=== PATIENT | female | born 1945 | race Caucasian/White ===

== ENCOUNTER → 2016-07-29 | Outpatient (REF) | payer MEDICARE, MEDICAID ==
[~2016-07-29] MED LIST: /ADVA50050; /ADVA50050 IN; /ADVA50050 INH; /FENT75PA; /FENT75PA TD; /TIOT18INH; /TIOT18INH INH; ADV500INH INH; ALBU17IN INH; CARV3.12 PO; CELE40TA; CELE40TA OR; CHAN1PAK9 PO; CIPR500T89 PO; CITA40TA4 PO; COLA100C PO; COLA100C2 OR; CORE6.25 PO; DESLORATADINE PO; DIPH25CA PO; DOC-Q-LACE PO; FERR325T OR; FERR325T3 PO; FOLI1TAB2 PO; GABA-283 PO; HYDR-3719 PO; HYDR25TA6; HYDR25TA6 OR; IBUP400T OR; INSUH10VL SC; INSULADS SC; INSULANT SC; INSULIN LANTUS; KEFL500C7 PO; LEVA500T PO; LISI40TA; LISI40TA OR; LISI40TAB PO; LOPR50TA OR; LORT5TAB PO; LYRI150C; LYRI150C OR; MERTAZAPINE; MERTAZAPINE PO; METF500T4; METF500T4 OR; METO25TAB PO; MILKSUS OR; MILKSUS PO; MIRT30TA3 PO; MONT10TA2 PO; MORP15TASA PO; NEUR300C PO; NEUR400C OR; NORC10TA2 PO; NOVOINJ4; NOVOINJ4 IJ; NYSTATIN POWDER TOP; OMEP20CA3 PO; OXYC-299 PO; PAIN325T OR; PRED10TA2 PO; PRED20TA PO; PRIL40CA; PRIL40CA OR; PROV90AE; REGL5TAB2 PO; REME30TA OR; SIMV20TA2 PO; SING10TA31 PO; TESS100C PO; TIOT18INH INH; TRAZ100T; TRAZ100T OR; TRAZ100T4 PO; TYLE500T53 OR; VARE05TA PO; VENTAER; VENTAER IN; VENTOLIN NEB; VICO10TA11 PO; VICO5TAB; VICO5TAB OR; ZOCO40TA PO; neurontin; novolog SUBQ; simvastatin OR
== END ==
LOC: M SFHCADAM 16:15
PROVIDERS: ATTEND Family Medicine
DX: E11.9 Type 2 diabetes mellitus without complications (principal); F17.211 Nicotine dependence, cigarettes, in remission; Z53.8 Procedure and treatment not carried out for other reasons

== ENCOUNTER → 2016-07-31 | Outpatient (CLI) | payer MEDICARE, MEDICAID ==
[2016-07-31 11:58] LABS: MEAN CORPUSCULAR HEMOGLOBIN 31.5 pg (27.0-33.0); MEAN CORPUSCULAR HGB CONC 35.6 g/dl (32.0-36.5); MEAN CORPUSCULAR VOLUME 88.4 fl (80.0-96.0); RED CELL DISTRIBUTION WIDTH 13.3 % (11.5-14.5); WHITE BLOOD COUNT 4.4 K/mm3 (4.0-10.0)
[2016-07-31 12:28] LABS: ALBUMIN 3.4 GM/DL (3.2-5.2); ALBUMIN/GLOBULIN RATIO 0.87 (1.00-1.93); BILIRUBIN,TOTAL 0.6 MG/DL (0.2-1.0); CALCIUM LEVEL 8.3 MG/DL (8.8-10.2); CREATININE FOR GFR 1.01 MG/DL (0.55-1.02); FREE T4 1.31 NG/DL (0.76-1.46); GLOMERULAR FILTRATION RATE 57.7 (>39); POTASSIUM SERUM 4.6 MEQ/L (3.5-5.1); TOTAL PROTEIN 7.3 GM/DL (6.4-8.2)
== END ==
LOC: M LAB 11:32
PROVIDERS: ATTEND Family Medicine
DX: E11.9 Type 2 diabetes mellitus without complications (principal); F17.211 Nicotine dependence, cigarettes, in remission

== ENCOUNTER → 2017-04-15 | Outpatient (CLI) | payer MEDICARE, MEDICAID ==
[~2017-04-15] MED LIST changes: +CIPR-249 PO; -CIPR500T89 PO; -COLA100C PO; +COLA100C5 PO; -FOLI1TAB2 PO; +FOLI1TAB4 PO; +KEFL500C17 PO; -KEFL500C7 PO; -NORC10TA2 PO; +NORC10TA21 PO; +OXYC-141 PO; -OXYC-299 PO; +TRAZ-136 PO; -TRAZ100T4 PO
--- NOTE | 2017-04-15 09:49 | REP ---
Abdominal right upper quadrant ultrasound: Comparison studies are the CT studies of the abdomen pelvis dated 04/08/2016 and 02/27/2015. The gallbladder is surgically absent. There is no intrahepatic or extrahepatic biliary duct dilatation. The common duct measures 3.8 mm in diameter. The hepatic parenchyma is homogeneous. There are no hepatic masses. The visualized portion of the pancreatic head is unremarkable. The pancreatic body and tail are obscured by bowel gas. The right kidney is normal size measuring 11.6 cm craniocaudad length. There is renal cortical thinning. There is a 3.4 cm cyst laterally at the mid pole. There is calcified atheroma in renal vessels. There is no renal collecting system calculus, hydronephrosis or mass. There is no free fluid in the abdominal right upper quadrant. Impression: The gallbladder surgically absent. There is no hepatic mass. There is a 3.4 cm right renal cyst. There is no right upper quadrant ascites. Signed by Ramsey Cheng MD 04/15/2017 09:41 A
== END ==
LOC: M RAD 08:37
PROVIDERS: ATTEND Internal Medicine Infectious Disease
DX: B18.2 Chronic viral hepatitis C (principal); N28.1 Cyst of kidney, acquired

== ENCOUNTER → 2017-05-17 | Outpatient (CLI) | payer MEDICAID, MEDICARE ==
--- NOTE | 2017-05-17 09:28 | REP ---
CT abdomen pelvis without IV and oral contrast: Comparison is 04/08/2016. The patient is a history of colon resection and colostomy, hysterectomy, bilateral mastectomies and left hip arthroplasty. There are surgical clips in the rectal stump and the mid transverse colon. I do not identify the descending colon. Findings suggest a left hemicolectomy. There is a right lower quadrant stoma. There is a large peristomal hernia containing the ascending colon. This is unchanged. There is no wall thickening of the bowel loops within the hernia sac to suggest strangulation. The hernia sac measures 11 cm transverse diameter. This previously measured 11 cm. There is no evidence of bowel obstruction. The unenhanced hepatic parenchyma is homogeneous. There are surgical clips in the gallbladder fossa. Pancreas and spleen are normal size. There is a splenic calcification. The adrenals are unremarkable. There is a right renal cyst approximately 3 cm in diameter. This is unchanged. There are no renal calculi are hydronephrosis. There is no bowel distension or obstruction. There is no ascites. Pelvis: Beam-hardening artifact from the left hip arthroplasty obscures visualization. A large mass is identified. No adenopathy. The bladder is mostly obscured. Impression: There are findings compatible left hemicolectomy. There is a right lower quadrant stoma with a parastomal hernia containing the ascending colon, unchanged from the prior study. There is no bowel distension or obstruction. There is no bowel wall thickening to suggest strangulation. There is no ascites or adenopathy. Signed by Ramsey Cheng MD 05/17/2017 09:19 A
== END ==
LOC: M RAD 08:41
PROVIDERS: ATTEND Physician Assistant
DX: R10.32 Left lower quadrant pain (principal)

== ENCOUNTER → 2017-05-24 | Outpatient (REF) | payer MEDICARE, MEDICAID ==
[2017-05-24 14:06] LABS: BASO % 0.5 % (0.0-1.0); EOS # 0.1 10^3/uL (0.0-0.50); EOS % 2.9 % (0.0-3.0); LYMPH # 2.3 10^3/uL (1.5-4.5); LYMPH % 58.7 % (24.0-44.0); MEAN CORPUSCULAR HEMOGLOBIN 29.7 pg (27.0-33.0); MEAN CORPUSCULAR HGB CONC 33.8 g/dl (32.0-36.5); MEAN CORPUSCULAR VOLUME 87.9 fl (80.0-96.0); MONO # 0.6 10^3/uL (0.0-0.8); MONO % 15.7 % (0.0-5.0); NEUTROPHILS % 22.2 % (36.0-66.0); PLATELET COUNT, AUTOMATED 125 10^3/uL (150-450); RED CELL DISTRIBUTION WIDTH 12.2 % (11.5-14.5); WHITE BLOOD COUNT 3.8 10^3/uL (4.0-10.0)
[2017-05-24 14:12] LABS: ALBUMIN 3.3 GM/DL (3.2-5.2); BILIRUBIN,DIRECT 0.2 MG/DL (0.0-0.2); BILIRUBIN,TOTAL 0.4 MG/DL (0.2-1.0); TOTAL PROTEIN 6.6 GM/DL (6.4-8.2)
[2017-05-24 14:43] LABS: NEUTROPHILS # 0.9 10^3/uL (1.8-7.7)
[2017-05-24 14:44] LABS: POSITIVE DIFF POS FLAG
[2017-05-27 10:16] LABS: HEPATITIS C QUANTITATION HCV Not Detected IU/mL (.)
== END ==
LOC: M SFHCPLAZ 10:57
PROVIDERS: ATTEND Internal Medicine Infectious Disease
DX: B18.2 Chronic viral hepatitis C (principal); Z23 Encounter for immunization
CPT/HCPCS: 36415; 80076; 85025; 87522; 90471; 90746; G0463

== ENCOUNTER 2017-07-01 14:02 | Emergency (ER) | payer MEDICARE, MEDICAID ==
[~2017-07-01] VITALS: Ht 177.8 cm; Wt 79.5 kg
[2017-07-01] MEDS ORDERED: BACL10TA2 PO (14:17)
[2017-07-01] MEDS ORDERED: OXYC15TA66 PO (14:17)
[2017-07-01] MEDS ORDERED: METH1TAB2 PO (14:17)
[2017-07-01] MEDS ORDERED: EPCL1TAB PO (14:17)
[2017-07-01] MEDS ORDERED: LISI-542 PO (14:17)
[2017-07-01] MEDS ORDERED: MECLIZINE 25 MG TABLET PO ONE (15:30)
[2017-07-01] MEDS ORDERED: ONDANSETRON 4MG/2ML VIAL (J2405) IV ONE (15:30)
[2017-07-01] MEDS ORDERED: MORPHINE 4 MG/ML 1ML SYRINGE IV ONE (15:30)
--- NOTE | 2017-07-01 16:22 | REP ---
CT brain without contrast: History: Dizziness. Comparison CT study: May 11, 2010. CT findings: Preliminary digital agriculture intern radiograph is unremarkable. No bony destructive lesion is seen. There is no CT evidence of significant paranasal sinus disease. A tiny quantity of fluid is seen in the left sphenoid sinus. There is vascular calcification in the distal vertebral arteries. There is diffuse moderate atrophy. Dilated perivascular spaces are seen in the inferior aspect of the basal ganglia bilaterally unchanged from the comparison study 2009. There is an old lacunar infarct in the left inferior basal ganglia as well also unchanged from the 2010 study. No acute infarct or hemorrhage is seen. No mass, extra-axial fluid collection or midline shift is seen. Impression: Vascular calcification and diffuse moderate atrophy. Old lacunar infarct left inferior basal ganglia unchanged from 2010. No acute intracranial lesion. Signed by Thomas Beauchamp MD 07/01/2017 05:12 P
[2017-07-01 16:30] LABS: MEAN CORPUSCULAR HEMOGLOBIN 30.9 pg (27.0-33.0); MEAN CORPUSCULAR VOLUME 85.7 fl (80.0-96.0); PLATELET COUNT, AUTOMATED 147 10^3/uL (150-450); RED CELL DISTRIBUTION WIDTH 12.5 % (11.5-14.5); WHITE BLOOD COUNT 5.3 10^3/uL (4.0-10.0)
--- NOTE | 2017-07-01 16:45 | REP ---
Lumbar spine series: Five views. History: Trauma. Findings: Lumbar vertebral body heights are preserved. Alignment is normal. No fracture collapse is seen. There is degenerative disc disease at L3-4 and L2-3, fairly advanced. There is a mild dextroconvex curvature on the AP view. Pedicles and posterior elements are intact. Psoas margins are symmetric. Surgical clips are noted in the pelvis and in the upper abdomen bilaterally. Impression: No fracture seen. Degenerative spondylosis changes. Signed by Thomas Beauchamp MD 07/01/2017 05:12 P
--- NOTE | 2017-07-01 16:48 | REP ---
Sacrum and coccyx: Four views: History: Trauma. Findings: AP, lateral and tube angled views of the sacrum and coccyx show no evidence of sacral or coccygeal fracture. There are sutures and clips in the central pelvis. A left hip replacement is seen. There is some contrast density in the right presacral soft tissues implying previous extravasated contrast. This is unchanged from a prior study November 20, 2013. This is not an acute finding. Impression: No sacral fracture or bony destructive lesion. Previously extravasated contrast in the presacral soft tissues. Unchanged from November 2013. Signed by Thomas Beauchamp MD 07/01/2017 05:13 P
[2017-07-01 16:51] LABS: ANION GAP 6 MEQ/L (8-16); BLOOD UREA NITROGEN 27 MG/DL (7-18); CALCIUM LEVEL 8.7 MG/DL (8.8-10.2); CARBON DIOXIDE LEVEL 29 MEQ/L (21-32); CHLORIDE LEVEL 100 MEQ/L (98-107); CREATININE FOR GFR 1.05 MG/DL (0.55-1.02); GLUCOSE, FASTING 191 MG/DL (83-110); POTASSIUM SERUM 4.7 MEQ/L (3.5-5.1); SODIUM LEVEL 135 MEQ/L (136-145)
[2017-07-01] MEDS ORDERED: MECL-68 PO (17:57)
[2017-07-01 18:17] VITALS: BP 119/58
--- NOTE | 2017-07-02 16:44 | ECGEPIP ---
Stationary ECG Study [facility] - ED Test Date: 2017-07-01 Pat Name: MATT REYNOSO Department: Room: - Gender: F Credit Collections Clerk: KEVIN : 1945 Requested By: Fito Aguirre Order Number: [id number] Reading MD: Sandra Ku Measurements Intervals [place] Rate: 85 P: 71 AL: 194 QRS: 72 QRSD: 85 T: 79 QT: 354 QTc: 421 Interpretive Statements SINUS RHYTHM DELAYED R PROGRESSION SIMILAR 04/08/16 Electronically Signed On 07-02-2017 16:44:36 EST by Sandra Ku
== END 2017-07-01 18:36 | disposition home or self-care (01) ==
LOC: EDBD 14:02 → M ED 14:02
DX: S60.222A Contusion of left hand, initial encounter (principal); S50.11XA Contusion of right forearm, initial encounter; S30.0XXA Contusion of lower back and pelvis, initial encounter; W19.XXXA Unspecified fall, initial encounter; Y92.018 Other place in single-family (private) house as the place of occurrence of the external cause; Y93.89 Activity, other specified; Y99.8 Other external cause status; J44.9 Chronic obstructive pulmonary disease, unspecified; I10 Essential (primary) hypertension; G89.29 Other chronic pain; F33.9 Major depressive disorder, recurrent, unspecified; K21.9 Gastro-esophageal reflux disease without esophagitis; I25.9 Chronic ischemic heart disease, unspecified; B19.20 Unspecified viral hepatitis C without hepatic coma; Z79.899 Other long term (current) drug therapy; Z79.51 Long term (current) use of inhaled steroids; Z88.0 Allergy status to penicillin; Z88.1 Allergy status to other antibiotic agents; Z88.8 Allergy status to other drugs, medicaments and biological substances; Z91.041 Radiographic dye allergy status; Z87.891 Personal history of nicotine dependence
CPT/HCPCS: 70450; 72110; 72220; 80048; 82550; 82553; 84484; 85027; 93005; 93041; 94760; 96374; 96375; 99285; J2405

== ENCOUNTER 2017-08-03 08:16 | Observation (INO) | payer MEDICARE, MEDICAID ==
[2017-08-03] MEDS: MORPHINE 4 MG/ML 1ML VIAL (J2270) IV ×9 (09:35→15:19)
[2017-08-03] MEDS: ONDANSETRON 4MG/2ML VIAL (J2405) IV ×4 (09:35)
[2017-08-03] MEDS: MORPHINE 4 MG/ML 1ML SYRINGE IV ×3 (09:35→15:19)
[2017-08-03] MEDS: NS 1,000 ML IV ×12 (09:35→18:10)
[2017-08-03 10:10] LABS: BASO % 0.4 % (0.0-1.0); EOS # 0.1 10^3/uL (0.0-0.50); EOS % 3.6 % (0.0-3.0); HEMATOCRIT 27.5 % (36.0-47.0); HEMOGLOBIN 9.4 g/dl (12.0-16.0); IMMATURE GRANULOCYTE % 0.4 % (0-0); LYMPH # 0.8 10^3/uL (1.5-4.5); LYMPH % 31.5 % (24.0-44.0); MEAN CORPUSCULAR HEMOGLOBIN 30.6 pg (27.0-33.0); MEAN CORPUSCULAR HGB CONC 34.2 g/dl (32.0-36.5); MEAN CORPUSCULAR VOLUME 89.6 fl (80.0-96.0); MONO # 0.5 10^3/uL (0.0-0.8); MONO % 21.5 % (0.0-5.0); NEUTROPHILS # 1.1 10^3/uL (1.8-7.7); NEUTROPHILS % 42.6 % (36.0-66.0); RED BLOOD COUNT 3.07 10^6/uL (4.00-5.40); RED CELL DISTRIBUTION WIDTH 13.1 % (11.5-14.5); WHITE BLOOD COUNT 2.5 10^3/uL (4.0-10.0)
[2017-08-03 10:27] LABS: POS COUNT POS FLAG
[2017-08-03 10:28] LABS: PLATELET COUNT, AUTOMATED 156 10^3/uL (150-450)
[2017-08-03 10:33] LABS: INR 1.04; PROTHROMBIN TIME 13.7 SECONDS (12.4-14.5)
[2017-08-03 10:37] LABS: ALBUMIN 2.7 GM/DL (3.2-5.2); ALBUMIN/GLOBULIN RATIO 0.84 (1.00-1.93); ALKALINE PHOSPHATASE 80 U/L (45-117); ALT/SGPT 13 U/L (12-78); ANION GAP 10 MEQ/L (8-16); AST/SGOT 11 U/L (7-37); BILIRUBIN,DIRECT 0.2 MG/DL (0.0-0.2); BILIRUBIN,TOTAL 0.5 MG/DL (0.2-1.0); BLOOD UREA NITROGEN 8 MG/DL (7-18); CARBON DIOXIDE LEVEL 27 MEQ/L (21-32); CHLORIDE LEVEL 103 MEQ/L (98-107); CPK CREATINE PHOSPHOKINASE 39 U/L (26-192); CREATININE FOR GFR 0.87 MG/DL (0.55-1.02); GLOMERULAR FILTRATION RATE > 60.0 (>39); GLUCOSE, FASTING 231 MG/DL (70-100); LIPASE 63 U/L (73-393); POTASSIUM SERUM 4.3 MEQ/L (3.5-5.1); SODIUM LEVEL 140 MEQ/L (136-145); TOTAL PROTEIN 5.9 GM/DL (6.4-8.2); TROPONIN I < 0.02 NG/ML (< 0.10)
[2017-08-03 10:38] LABS: MB/CK RELATIVE INDEX 2.56 (< OR =4)
[2017-08-03 10:59] LABS: KETONE, URINE AUTO RFX 1+ mg/dL (NEGATIVE); LEUKOCYTE ESTERASE UR AUTO RFX NEGATIVE (NEGATIVE); MUCUS, URINE RFX SMALL (NEGATIVE); NITRITE, URINE AUTO RFX NEGATIVE (NEGATIVE); RBC, URINE AUTO RFX 0 /HPF (0-3); SPECIFIC GRAVITY UR AUTO RFX 1.006 (1.002-1.035); SQUAM EPITHELIAL CELL UR AURFX 1 /HPF (0-6); WBC, URINE AUTO RFX 4 /HPF (0-3)
[2017-08-03] MEDS: MECLIZINE 25 MG TABLET PO ×4 (13:01)
[2017-08-03] MEDS ORDERED: ONDANSETRON 4MG/2ML VIAL (J2405) IV ×4 (17:15)
[2017-08-03] MEDS ORDERED: PROCHLORPERAZINE 10 MG/2 ML VIAL (J0780) IV ×4 (17:15)
[2017-08-03] MEDS ORDERED: BACLOFEN 10 MG TAB PO ×4 (17:15)
[2017-08-03] MEDS ORDERED: PERCOCET 5MG/325MG TAB PO ×4 (17:15)
[2017-08-03] MEDS ORDERED: ACETAMINOPHEN TAB 650MG DOSE (2X325MG) PO ×4 (17:30)
[2017-08-03] MEDS ORDERED: GLUCOSE 4 GM CHEW TABLET PO ×4 (17:30)
[2017-08-03] MEDS ORDERED: IPRATROPIUM 0.5MG/ALBUTEROL 2.5MG INH SOL UD 3ML (DUONEB)(J7620) NEB ×4 (17:30)
[2017-08-03] MEDS ORDERED: DEXTROSE 50% 50 ML SYRINGE IV ×4 (17:30)
[2017-08-03] MEDS ORDERED: GLUCAGON FOR INJ 1 MG VIAL (J1610) SC ×4 (17:30)
[2017-08-03 18:22] LABS: BEDSIDE GLUCOSE 119 MG/DL (83-110)
[2017-08-03] MEDS ORDERED: MORPHINE 4 MG/ML 1ML SYRINGE IV (18:45)
[2017-08-03] MEDS ORDERED: MORPHINE 4 MG/ML 1ML VIAL (J2270) IV ×3 (18:45)
[2017-08-03] MEDS: HumaLOG INSULIN (NovoLOG) PER UNIT SC ×8 (18:48→21:00)
[2017-08-03] MEDS: PERCOCET 5MG/325MG TAB PO ×4 (19:30)
[2017-08-03] MEDS: MIRTAZAPINE 15 MG TAB PO ×4 (21:00)
[2017-08-03] MEDS: VARENICLINE 1 MG TABLET PO ×4 (21:00)
[2017-08-03] MEDS: GABAPENTIN 400 MG CAP PO ×4 (21:00)
[2017-08-03] MEDS: DOCUSATE SODIUM 100 MG CAP PO ×4 (21:00)
[2017-08-03] MEDS: MONTELUKAST 10 MG TAB PO ×4 (21:00)
[2017-08-03] MEDS ORDERED: ENTER DRUG NAME HERE (PATIENT'S OWN MED) PO ×4 (21:00)
[2017-08-03] MEDS: traZODone 100 MG TAB PO ×4 (21:00)
[2017-08-03] MEDS: CARVedilol 3.125 MG TAB PO ×4 (21:00)
[2017-08-03] MEDS: FOLIC ACID 1 MG TAB PO ×4 (21:00)
[2017-08-03] MEDS: SIMVASTATIN 20 MG TAB PO ×4 (21:00)
[2017-08-03] MEDS: oxyCODONE 20 MG CR TAB PO ×4 (21:00)
[2017-08-03] MEDS: HEPARIN SOD (PORCINE) 5000 UNITS/ML VIAL SC ×4 (21:19)
[2017-08-03 21:24] LABS: BEDSIDE GLUCOSE 150 MG/DL (83-110)
[2017-08-03] MEDS: ADVAIR HFA 230/21MCG INHALER INH ×4 (23:39)
[2017-08-04] MEDS: PERCOCET 5MG/325MG TAB PO ×8 (04:50→15:27)
[2017-08-04] MEDS: HEPARIN SOD (PORCINE) 5000 UNITS/ML VIAL SC ×12 (06:00→22:01)
[2017-08-04 06:59] LABS: BEDSIDE GLUCOSE 199 MG/DL (83-110)
[2017-08-04 07:04] LABS: BASO % 0.4 % (0.0-1.0); EOS # 0.2 10^3/uL (0.0-0.50); EOS % 8.6 % (0.0-3.0); HEMATOCRIT 25.1 % (36.0-47.0); HEMOGLOBIN 8.3 g/dl (12.0-16.0); LYMPH # 1.1 10^3/uL (1.5-4.5); LYMPH % 46.1 % (24.0-44.0); MEAN CORPUSCULAR HEMOGLOBIN 29.6 pg (27.0-33.0); MEAN CORPUSCULAR HGB CONC 33.1 g/dl (32.0-36.5); MEAN CORPUSCULAR VOLUME 89.6 fl (80.0-96.0); MONO # 0.6 10^3/uL (0.0-0.8); MONO % 25.9 % (0.0-5.0); PLATELET COUNT, AUTOMATED 142 10^3/uL (150-450); RED CELL DISTRIBUTION WIDTH 13.1 % (11.5-14.5); WHITE BLOOD COUNT 2.3 10^3/uL (4.0-10.0)
[2017-08-04 07:15] LABS: ANION GAP 6 MEQ/L (8-16); BLOOD UREA NITROGEN 4 MG/DL (7-18); CALCIUM LEVEL 7.8 MG/DL (8.8-10.2); CARBON DIOXIDE LEVEL 30 MEQ/L (21-32); CHLORIDE LEVEL 105 MEQ/L (98-107); CREATININE FOR GFR 0.79 MG/DL (0.55-1.02); GLOMERULAR FILTRATION RATE > 60.0 (>39); GLUCOSE, FASTING 190 MG/DL (70-100); POTASSIUM SERUM 3.2 MEQ/L (3.5-5.1); SODIUM LEVEL 141 MEQ/L (136-145)
[2017-08-04 07:20] LABS: ESTIMATED AVERAGE GLUCOSE 148 MG/DL (60-110); HEMOGLOBIN A1c 6.8 %
[2017-08-04] MEDS: HumaLOG INSULIN (NovoLOG) PER UNIT SC ×16 (07:26→21:00)
[2017-08-04 07:28] LABS: NEUTROPHILS # 0.4 10^3/uL (1.8-7.7); POSITIVE DIFF POS FLAG
[2017-08-04] MEDS: CitaloPRAM (CeleXA) 20 MG TAB PO ×4 (08:34)
[2017-08-04] MEDS: DOCUSATE SODIUM 100 MG CAP PO ×8 (08:34→21:57)
[2017-08-04] MEDS: VARENICLINE 1 MG TABLET PO ×8 (08:34→22:05)
[2017-08-04] MEDS: FOLIC ACID 1 MG TAB PO ×8 (08:36→21:55)
[2017-08-04] MEDS: CARVedilol 3.125 MG TAB PO ×8 (08:36→21:56)
[2017-08-04] MEDS: TAMSULOSIN 0.4 MG CAP PO ×4 (08:36)
[2017-08-04] MEDS: oxyCODONE 10 MG CR TAB PO ×8 (08:37→21:57)
[2017-08-04] MEDS: OMEPRAZOLE 20 MG CAP PO ×4 (08:38)
[2017-08-04] MEDS: LISINOPRIL 5 MG TAB PO ×4 (08:38)
[2017-08-04] MEDS: GABAPENTIN 400 MG CAP PO ×12 (09:00→21:57)
[2017-08-04] MEDS: NS 1,000 ML IV ×4 (09:55)
[2017-08-04] MEDS: TIOTROPIUM INHALER/CAPSULE (SPIRIVA) INH ×4 (11:11)
[2017-08-04] MEDS: ADVAIR HFA 230/21MCG INHALER INH ×4 (11:12)
[2017-08-04 11:55] LABS: BEDSIDE GLUCOSE 194 MG/DL (83-110)
[2017-08-04] MEDS: POTASSIUM CHLORIDE 10 MEQ SR TABLET PO ×8 (15:26→21:55)
[2017-08-04 18:20] LABS: BEDSIDE GLUCOSE 160 MG/DL (83-110)
[2017-08-04 20:41] LABS: BEDSIDE GLUCOSE 150 MG/DL (83-110)
[2017-08-04] MEDS: MONTELUKAST 10 MG TAB PO ×4 (21:55)
[2017-08-04] MEDS: MIRTAZAPINE 15 MG TAB PO ×4 (21:55)
[2017-08-04] MEDS: traZODone 100 MG TAB PO ×4 (21:56)
[2017-08-04] MEDS: SIMVASTATIN 20 MG TAB PO ×4 (21:58)
[2017-08-05] MEDS: ADVAIR HFA 230/21MCG INHALER INH ×8 (00:08→08:47)
[2017-08-05] MEDS: HEPARIN SOD (PORCINE) 5000 UNITS/ML VIAL SC ×4 (05:56)
[2017-08-05 06:55] LABS: EOS # 0.2 10^3/uL (0.0-0.50); EOS % 8.1 % (0.0-3.0); HEMATOCRIT 24.5 % (36.0-47.0); HEMOGLOBIN 8.1 g/dl (12.0-16.0); MEAN CORPUSCULAR HEMOGLOBIN 30.5 pg (27.0-33.0); MEAN CORPUSCULAR HGB CONC 33.1 g/dl (32.0-36.5); MEAN CORPUSCULAR VOLUME 92.1 fl (80.0-96.0); MONO # 0.5 10^3/uL (0.0-0.8); MONO % 25.8 % (0.0-5.0); NEUTROPHILS % 16.1 % (36.0-66.0); PLATELET COUNT, AUTOMATED 141 10^3/uL (150-450); RED BLOOD COUNT 2.66 10^6/uL (4.00-5.40); RED CELL DISTRIBUTION WIDTH 13.2 % (11.5-14.5)
[2017-08-05 06:56] LABS: NEUTROPHILS # 0.3 10^3/uL (1.8-7.7); POS COUNT POS FLAG; POSITIVE DIFF POS FLAG
[2017-08-05 06:56] LABS: BEDSIDE GLUCOSE 167 MG/DL (83-110)
[2017-08-05 07:13] LABS: ANION GAP 5 MEQ/L (8-16); BLOOD UREA NITROGEN 5 MG/DL (7-18); CALCIUM LEVEL 7.7 MG/DL (8.8-10.2); CARBON DIOXIDE LEVEL 28 MEQ/L (21-32); CHLORIDE LEVEL 108 MEQ/L (98-107); CREATININE FOR GFR 0.89 MG/DL (0.55-1.02); GLOMERULAR FILTRATION RATE > 60.0 (>39); GLUCOSE, FASTING 147 MG/DL (70-100); MAGNESIUM LEVEL 1.4 MG/DL (1.8-2.4); POTASSIUM SERUM 4.4 MEQ/L (3.5-5.1); SODIUM LEVEL 141 MEQ/L (136-145)
[2017-08-05] MEDS: GABAPENTIN 400 MG CAP PO ×4 (08:19)
[2017-08-05] MEDS: OMEPRAZOLE 20 MG CAP PO ×4 (08:19)
[2017-08-05] MEDS: TAMSULOSIN 0.4 MG CAP PO ×4 (08:19)
[2017-08-05] MEDS: DOCUSATE SODIUM 100 MG CAP PO ×4 (08:19)
[2017-08-05] MEDS: CitaloPRAM (CeleXA) 20 MG TAB PO ×4 (08:20)
[2017-08-05] MEDS: LISINOPRIL 5 MG TAB PO ×4 (08:20)
[2017-08-05] MEDS: POTASSIUM CHLORIDE 10 MEQ SR TABLET PO ×4 (08:21)
[2017-08-05] MEDS: CARVedilol 3.125 MG TAB PO ×4 (08:23)
[2017-08-05] MEDS: oxyCODONE 10 MG CR TAB PO ×4 (08:24)
[2017-08-05] MEDS: FOLIC ACID 1 MG TAB PO ×4 (08:25)
[2017-08-05] MEDS: HumaLOG INSULIN (NovoLOG) PER UNIT SC ×8 (08:25→12:30)
[2017-08-05] MEDS: VARENICLINE 1 MG TABLET PO ×4 (08:32)
[2017-08-05] MEDS: TIOTROPIUM INHALER/CAPSULE (SPIRIVA) INH ×4 (08:47)
[2017-08-05 12:15] LABS: BEDSIDE GLUCOSE 229 MG/DL (83-110)
== END 2017-08-05 13:00 | disposition home or self-care (01) ==
LOC: M MSPAV 08-04 11:04 → M ED 08:16 → M ED INP 15:01
DX: T81.31XA Disruption of external operation (surgical) wound, not elsewhere classified, initial encounter (principal); Y83.8 Other surgical procedures as the cause of abnormal reaction of the patient, or of later complication, without mention of misadventure at the time of the procedure; E87.6 Hypokalemia; R53.81 Other malaise; R53.83 Other fatigue; D64.9 Anemia, unspecified; D72.819 Decreased white blood cell count, unspecified; I65.22 Occlusion and stenosis of left carotid artery; R11.2 Nausea with vomiting, unspecified; R16.1 Splenomegaly, not elsewhere classified; M47.816 Spondylosis without myelopathy or radiculopathy, lumbar region; M16.0 Bilateral primary osteoarthritis of hip; G89.29 Other chronic pain; I50.30 Unspecified diastolic (congestive) heart failure; E11.43 Type 2 diabetes mellitus with diabetic autonomic (poly)neuropathy; I11.0 Hypertensive heart disease with heart failure; K63.2 Fistula of intestine; N82.8 Other female genital tract fistulae; Z87.19 Personal history of other diseases of the digestive system; B19.20 Unspecified viral hepatitis C without hepatic coma; J44.9 Chronic obstructive pulmonary disease, unspecified; F41.9 Anxiety disorder, unspecified; F32.9 Major depressive disorder, single episode, unspecified; E78.5 Hyperlipidemia, unspecified; M81.0 Age-related osteoporosis without current pathological fracture; M19.072 Primary osteoarthritis, left ankle and foot; M19.071 Primary osteoarthritis, right ankle and foot; N18.9 Chronic kidney disease, unspecified; K76.0 Fatty (change of) liver, not elsewhere classified; Z87.440 Personal history of urinary (tract) infections; Z86.19 Personal history of other infectious and parasitic diseases; Z86.14 Personal history of Methicillin resistant Staphylococcus aureus infection; Z93.3 Colostomy status; N82.3 Fistula of vagina to large intestine; Z87.891 Personal history of nicotine dependence; Z91.041 Radiographic dye allergy status; Z88.0 Allergy status to penicillin; Z88.8 Allergy status to other drugs, medicaments and biological substances; Z88.6 Allergy status to analgesic agent; Z88.5 Allergy status to narcotic agent; Z79.899 Other long term (current) drug therapy; Z79.891 Long term (current) use of opiate analgesic; Z79.2 Long term (current) use of antibiotics; Z79.51 Long term (current) use of inhaled steroids
CPT/HCPCS: 96372

== ENCOUNTER → 2017-08-27 | Outpatient (REF) | payer MEDICARE ==
[2017-08-27 13:38] LABS: BACTERIA, URINE SMALL AMOUNT; RBC, URINE 0-1 /hpf (0-3); SQUAMOUS EPITHELIAL CELL URINE MOD AMOUNT /hpf (SMALL AMT)
[2017-08-27 13:39] LABS: AMORPHOUS SEDIMENT, URINE SMALL AMOUNT (NEGATIVE); MICROSCOPIC EXAM PERFORMED
== END ==
LOC: M SMT 13:01
DX: J44.9 Chronic obstructive pulmonary disease, unspecified (principal); N30.00 Acute cystitis without hematuria; R30.0 Dysuria; R33.9 Retention of urine, unspecified
CPT/HCPCS: 81015

== ENCOUNTER 2017-09-03 16:59 | Emergency (ER) | payer MEDICARE, MEDICAID | END 2017-09-03 18:36 | disposition home or self-care (01) | LOC: M ED 16:59 | DX: R33.9 Retention of urine, unspecified (principal); E11.9 Type 2 diabetes mellitus without complications; I10 Essential (primary) hypertension; J45.909 Unspecified asthma, uncomplicated; B19.20 Unspecified viral hepatitis C without hepatic coma; K21.9 Gastro-esophageal reflux disease without esophagitis; E78.9 Disorder of lipoprotein metabolism, unspecified; Z79.899 Other long term (current) drug therapy; Z79.51 Long term (current) use of inhaled steroids; Z91.041 Radiographic dye allergy status; Z88.8 Allergy status to other drugs, medicaments and biological substances; Z88.5 Allergy status to narcotic agent; Z88.0 Allergy status to penicillin; Z88.1 Allergy status to other antibiotic agents; Z98.890 Other specified postprocedural states; Z85.841 Personal history of malignant neoplasm of brain; Z87.440 Personal history of urinary (tract) infections | CPT/HCPCS: 51700; 51702 ==

== ENCOUNTER 2017-09-13 17:50 | Emergency (ER) | payer MEDICARE, MEDICAID ==
[2017-09-13 19:02] LABS: APPEARANCE, URINE HAZY (CLEAR); BACTERIA, URINE AUTO 1+ (NEGATIVE); BILIRUBIN, URINE AUTO NEGATIVE (NEGATIVE); BLOOD, URINE BLOOD 3+ (NEGATIVE); COLOR, URINE YELLOW (YELLOW); GLUCOSE, URINE (UA) AUTO NEGATIVE (NEGATIVE); KETONE, URINE AUTO NEGATIVE (NEGATIVE); LEUKOCYTE ESTERASE, URINE AUTO TRACE (NEGATIVE); NITRITE, URINE AUTO NEGATIVE (NEGATIVE); PROTEIN, URINE AUTO NEGATIVE (NEGATIVE); RBC, URINE AUTO 18 /HPF (0-3); SPECIFIC GRAVITY URINE AUTO 1.005 (1.002-1.035); SQUAMOUS EPITHELIAL CELL UR AU 0 /HPF (0-6); UROBILINOGEN, URINE AUTO 0.2 mg/dL (0.0-2.0); WBC, URINE AUTO 5 /HPF (0-3)
[2017-09-13] MEDS: BACTRIM 160MG/800MG DS TAB PO ×3 (20:06)
[2017-09-13] MEDS: NITROFURANTOIN (MACROBID) 100 MG CAP PO ×3 (20:06)
== END 2017-09-13 20:11 | disposition home or self-care (01) ==
LOC: M ED 17:50
DX: R33.9 Retention of urine, unspecified (principal); N30.00 Acute cystitis without hematuria; T83.091A Other mechanical complication of indwelling urethral catheter, initial encounter; Y92.9 Unspecified place or not applicable; Y93.9 Activity, unspecified; R51 Headache; I10 Essential (primary) hypertension; K21.9 Gastro-esophageal reflux disease without esophagitis; E11.9 Type 2 diabetes mellitus without complications; B18.2 Chronic viral hepatitis C; Z90.49 Acquired absence of other specified parts of digestive tract; Z79.899 Other long term (current) drug therapy; Z88.1 Allergy status to other antibiotic agents; Z88.6 Allergy status to analgesic agent; Z88.5 Allergy status to narcotic agent; Z88.0 Allergy status to penicillin; Z88.2 Allergy status to sulfonamides; Z88.8 Allergy status to other drugs, medicaments and biological substances; Z91.041 Radiographic dye allergy status
CPT/HCPCS: 81001

== ENCOUNTER → 2017-10-04 | Outpatient (REF) | payer MEDICARE, MEDICAID ==
[2017-10-04 15:53] LABS: BASO % 0.3 % (0.0-1.0); EOS # 0.1 10^3/uL (0.0-0.50); EOS % 3.9 % (0.0-3.0); HEMATOCRIT 34.7 % (36.0-47.0); HEMOGLOBIN 11.5 g/dl (12.0-16.0); IMMATURE GRANULOCYTE % 0.3 % (0-3.0); LYMPH # 1.7 10^3/uL (1.5-4.5); LYMPH % 55.8 % (24.0-44.0); MEAN CORPUSCULAR HEMOGLOBIN 28.3 pg (27.0-33.0); MEAN CORPUSCULAR HGB CONC 33.1 g/dl (32.0-36.5); MEAN CORPUSCULAR VOLUME 85.3 fl (80.0-96.0); MONO # 0.5 10^3/uL (0.0-0.8); MONO % 17.2 % (0.0-5.0); NEUTROPHILS % 22.5 % (36.0-66.0); PLATELET COUNT, AUTOMATED 126 10^3/uL (150-450); RED BLOOD COUNT 4.07 10^6/uL (4.00-5.40); RED CELL DISTRIBUTION WIDTH 12.6 % (11.5-14.5); WHITE BLOOD COUNT 3.1 10^3/uL (4.0-10.0)
[2017-10-04 16:12] LABS: ALBUMIN 3.3 GM/DL (3.2-5.2); ALBUMIN/GLOBULIN RATIO 0.94 (1.00-1.93); ALKALINE PHOSPHATASE 87 U/L (45-117); ALT/SGPT 15 U/L (12-78); ANION GAP 10 MEQ/L (8-16); AST/SGOT 10 U/L (7-37); BILIRUBIN,TOTAL 0.4 MG/DL (0.2-1.0); BLOOD UREA NITROGEN 18 MG/DL (7-18); CALCIUM LEVEL 8.3 MG/DL (8.8-10.2); CARBON DIOXIDE LEVEL 25 MEQ/L (21-32); CHLORIDE LEVEL 103 MEQ/L (98-107); CREATININE FOR GFR 1.01 MG/DL (0.55-1.30); GLOMERULAR FILTRATION RATE 57.5 (>39); GLUCOSE, FASTING 301 MG/DL (70-100); POTASSIUM SERUM 4.2 MEQ/L (3.5-5.1); SODIUM LEVEL 138 MEQ/L (136-145); TOTAL PROTEIN 6.8 GM/DL (6.4-8.2)
[2017-10-04 16:26] LABS: NEUTROPHILS # 0.7 10^3/uL (1.8-7.7); POSITIVE DIFF POS FLAG
[2017-10-05 11:03] LABS: ALPHA FETOPROTEIN TUMOR QUANT 2.4 NG/ML (<8.1)
[2017-10-07 08:06] LABS: ALPHA 2-MACROGLOBULIN 333 mg/dL (110-276); ALT 11 IU/L (0-40); APOLIPOPROTEIN A-1 128 mg/dL (116-209); FIBROSIS SCORE 0.45 (0.00-0.21); FIBROSIS STAGE F1-F2 (.); GGT 22 IU/L (0-60); HAPTOGLOBIN 113 mg/dL (34-200); HEPATITIS C QUANTITATION HCV Not Detected IU/mL (.); NECROINFLAM SCORE 0.04 (0.00-0.17); NECROINFLAMM GRADE A0-No activity (.); TOTAL BILIRUBIN 0.3 mg/dL (0.0-1.2)
== END ==
LOC: M SFHCPLAZ 13:46
DX: B18.2 Chronic viral hepatitis C (principal); I11.9 Hypertensive heart disease without heart failure; E11.9 Type 2 diabetes mellitus without complications; F17.211 Nicotine dependence, cigarettes, in remission; J44.9 Chronic obstructive pulmonary disease, unspecified; K00.0 Anodontia; K21.0 Gastro-esophageal reflux disease with esophagitis; Z23 Encounter for immunization
CPT/HCPCS: 84460

== ENCOUNTER → 2017-10-22 | Outpatient (REF) | payer MEDICARE, MEDICAID ==
[2017-10-22 12:43] LABS: BASO % 0.5 % (0.0-1.0); EOS # 0.2 10^3/uL (0.0-0.50); EOS % 2.3 % (0.0-3.0); HEMATOCRIT 41.2 % (36.0-47.0); HEMOGLOBIN 13.8 g/dl (12.0-15.5); IMMATURE GRANULOCYTE % 0.8 % (0-3.0); LYMPH # 2.1 10^3/uL (1.5-4.5); LYMPH % 27.3 % (24.0-44.0); MEAN CORPUSCULAR HEMOGLOBIN 28.4 pg (27.0-33.0); MEAN CORPUSCULAR HGB CONC 33.5 g/dl (32.0-36.5); MEAN CORPUSCULAR VOLUME 84.8 fl (80.0-96.0); MONO # 0.7 10^3/uL (0.0-0.8); MONO % 9.3 % (0.0-5.0); NEUTROPHILS # 4.5 10^3/uL (1.8-7.7); NEUTROPHILS % 59.8 % (36.0-66.0); PLATELET COUNT, AUTOMATED 151 10^3/uL (150-450); RED BLOOD COUNT 4.86 10^6/uL (4.00-5.40); RED CELL DISTRIBUTION WIDTH 12.6 % (11.5-14.5); WHITE BLOOD COUNT 7.5 10^3/uL (4.0-10.0)
[2017-10-22 12:54] LABS: ALBUMIN 3.4 GM/DL (3.2-5.2); ALBUMIN/GLOBULIN RATIO 0.94 (1.00-1.93); ALKALINE PHOSPHATASE 106 U/L (45-117); ALT/SGPT 15 U/L (12-78); ANION GAP 10 MEQ/L (8-16); AST/SGOT 6 U/L (7-37); BILIRUBIN,TOTAL 0.4 MG/DL (0.2-1.0); BLOOD UREA NITROGEN 26 MG/DL (7-18); CALCIUM LEVEL 8.9 MG/DL (8.8-10.2); CARBON DIOXIDE LEVEL 25 MEQ/L (21-32); CHLORIDE LEVEL 101 MEQ/L (98-107); GLOMERULAR FILTRATION RATE 58.2 (>39); POTASSIUM SERUM 4.5 MEQ/L (3.5-5.1); SODIUM LEVEL 136 MEQ/L (136-145)
[2017-10-22 13:00] LABS: ESTIMATED AVERAGE GLUCOSE 189 MG/DL (60-110); HEMOGLOBIN A1c 8.2 %
[2017-10-22 13:25] LABS: MALB URINE SIEMENS 81.4 MG/L
[2017-10-22 13:44] LABS: GLUCOSE, FASTING 403 MG/DL (70-100)
== END ==
LOC: M SFHCADAM 09:08
DX: E11.9 Type 2 diabetes mellitus without complications (principal); D72.819 Decreased white blood cell count, unspecified; D63.8 Anemia in other chronic diseases classified elsewhere; I11.9 Hypertensive heart disease without heart failure; N39.0 Urinary tract infection, site not specified
CPT/HCPCS: 80053

== ENCOUNTER → 2017-11-24 | Outpatient (CLI) | payer MEDICARE, MEDICAID | LOC: M RAD 08:19 | DX: B18.2 Chronic viral hepatitis C (principal) | CPT/HCPCS: 76705 ==

== ENCOUNTER → 2017-11-29 | Outpatient (REF) | payer MEDICARE, MEDICAID ==
[2017-11-29 18:51] LABS: BACTERIA, URINE AUTO 2+ (NEGATIVE); MUCUS, URINE SMALL (NEGATIVE); RBC, URINE AUTO 5 /HPF (0-3); SQUAMOUS EPITHELIAL CELL UR AU 0 /HPF (0-6); WBC, URINE AUTO 41 /HPF (0-3)
== END ==
LOC: M SMT 17:11
DX: N32.89 Other specified disorders of bladder (principal); R33.9 Retention of urine, unspecified
CPT/HCPCS: 81015

== ENCOUNTER 2017-12-04 17:27 | Emergency (ER) | payer MEDICARE, MEDICAID ==
[2017-12-04] MEDS: PERCOCET 5MG/325MG TAB PO (18:01)
== END 2017-12-04 19:22 | disposition home or self-care (01) ==
LOC: M ED 17:27
DX: R93.7 Abnormal findings on diagnostic imaging of other parts of musculoskeletal system (principal); S93.401A Sprain of unspecified ligament of right ankle, initial encounter; X50.1XXA Overexertion from prolonged static or awkward postures, initial encounter; Y92.098 Other place in other non-institutional residence as the place of occurrence of the external cause; I10 Essential (primary) hypertension; F17.200 Nicotine dependence, unspecified, uncomplicated; Z91.041 Radiographic dye allergy status; Z88.8 Allergy status to other drugs, medicaments and biological substances; Z88.0 Allergy status to penicillin; Z88.5 Allergy status to narcotic agent; Z88.6 Allergy status to analgesic agent; Z88.2 Allergy status to sulfonamides; Z79.899 Other long term (current) drug therapy; Z79.51 Long term (current) use of inhaled steroids
CPT/HCPCS: 73610

== ENCOUNTER → 2017-12-24 | Outpatient (REF) | payer MEDICARE, MEDICAID ==
[2017-12-24 18:59] LABS: ALBUMIN 3.2 GM/DL (3.2-5.2); ALKALINE PHOSPHATASE 74 U/L (45-117); ALT/SGPT 16 U/L (12-78); ANION GAP 9 MEQ/L (8-16); AST/SGOT 15 U/L (7-37); BILIRUBIN,TOTAL 0.4 MG/DL (0.2-1.0); BLOOD UREA NITROGEN 9 MG/DL (7-18); CALCIUM LEVEL 8.2 MG/DL (8.8-10.2); CARBON DIOXIDE LEVEL 29 MEQ/L (21-32); CHLORIDE LEVEL 101 MEQ/L (98-107); CREATININE FOR GFR 0.74 MG/DL (0.55-1.30); GLOMERULAR FILTRATION RATE > 60.0 (>39); GLUCOSE, FASTING 113 MG/DL (70-100); POTASSIUM SERUM 4.3 MEQ/L (3.5-5.1); SODIUM LEVEL 139 MEQ/L (136-145); TOTAL PROTEIN 6.4 GM/DL (6.4-8.2)
[2017-12-24 19:03] LABS: BASO % 0.3 % (0.0-1.0); EOS # 0.1 10^3/uL (0.0-0.50); EOS % 3.6 % (0.0-3.0); HEMATOCRIT 35.2 % (36.0-47.0); HEMOGLOBIN 12.2 g/dl (12.0-15.5); IMMATURE GRANULOCYTE % 0.6 % (0-3.0); LYMPH % 59.7 % (24.0-44.0); MEAN CORPUSCULAR HGB CONC 34.7 g/dl (32.0-36.5); MEAN CORPUSCULAR VOLUME 83.8 fl (80.0-96.0); MONO # 0.6 10^3/uL (0.0-0.8); MONO % 18.5 % (0.0-5.0); NEUTROPHILS % 17.3 % (36.0-66.0); PLATELET COUNT, AUTOMATED 175 10^3/uL (150-450); RED CELL DISTRIBUTION WIDTH 12.4 % (11.5-14.5)
[2017-12-24 21:28] LABS: NEUTROPHILS # 0.6 10^3/uL (1.8-7.7); POSITIVE DIFF POS FLAG
[2017-12-24 21:29] LABS: WHITE BLOOD COUNT 3.4 10^3/uL (4.0-10.0)
== END ==
LOC: M SFHCADAM 13:42
DX: R11.2 Nausea with vomiting, unspecified (principal)
CPT/HCPCS: 80053

== ENCOUNTER → 2018-01-17 | Outpatient (REF) | payer MEDICARE, MEDICAID ==
[2018-01-17 16:12] LABS: ESTIMATED AVERAGE GLUCOSE 137 MG/DL (60-110); HEMOGLOBIN A1c 6.4 %; INR 1.05; PROTHROMBIN TIME 13.9 SECONDS (12.1-14.4)
[2018-01-17 16:30] LABS: ANION GAP 9 MEQ/L (8-16); BLOOD UREA NITROGEN 14 MG/DL (7-18); CALCIUM LEVEL 8.3 MG/DL (8.8-10.2); CARBON DIOXIDE LEVEL 27 MEQ/L (21-32); CHLORIDE LEVEL 103 MEQ/L (98-107); CREATININE FOR GFR 0.94 MG/DL (0.55-1.30); GLOMERULAR FILTRATION RATE > 60.0 (>39); GLUCOSE, FASTING 122 MG/DL (70-100); POTASSIUM SERUM 4.1 MEQ/L (3.5-5.1); SODIUM LEVEL 139 MEQ/L (136-145)
[2018-01-18 09:53] LABS: ALPHA FETOPROTEIN TUMOR QUANT 3.7 NG/ML (<8.1)
[2018-01-20 14:44] LABS: HEPATITIS C QUANTITATION HCV Not Detected IU/mL (.)
== END ==
LOC: M SFHCPLAZ 13:55
DX: B18.2 Chronic viral hepatitis C (principal); E11.29 Type 2 diabetes mellitus with other diabetic kidney complication
CPT/HCPCS: 83036; 84460

== ENCOUNTER → 2018-01-28 | Outpatient (CLI) | payer MEDICARE, MEDICAID | LOC: M ADAMS 15:47 | DX: J44.1 Chronic obstructive pulmonary disease with (acute) exacerbation (principal) | CPT/HCPCS: 71046 ==

== ENCOUNTER → 2018-02-24 | Outpatient (REF) | payer MEDICARE, MEDICAID ==
[2018-02-24 18:55] LABS: APPEARANCE, URINE HAZY (CLEAR); BACTERIA, URINE AUTO 2+ (NEGATIVE); BILIRUBIN, URINE AUTO NEGATIVE (NEGATIVE); BLOOD, URINE BLOOD 1+ (NEGATIVE); COLOR, URINE AMBER (YELLOW); GLUCOSE, URINE (UA) AUTO NEGATIVE (NEGATIVE); KETONE, URINE AUTO NEGATIVE (NEGATIVE); LEUKOCYTE ESTERASE, URINE AUTO 3+ (NEGATIVE); MUCUS, URINE SMALL (NEGATIVE); NITRITE, URINE AUTO POSITIVE (NEGATIVE); PROTEIN, URINE AUTO 2+ mg/dL (NEGATIVE); RBC, URINE AUTO 15 /HPF (0-3); SPECIFIC GRAVITY URINE AUTO 1.017 (1.002-1.035); SQUAMOUS EPITHELIAL CELL UR AU 2 /HPF (0-6); UROBILINOGEN, URINE AUTO 0.2 mg/dL (0.0-2.0); WBC, URINE AUTO TNTC /HPF (0-3)
== END ==
LOC: M SMT 17:20
DX: R30.0 Dysuria (principal)
CPT/HCPCS: 81001

== ENCOUNTER → 2018-03-24 | Outpatient (REF) | payer MEDICARE, MEDICAID | LOC: M SMT 17:06 | DX: R33.9 Retention of urine, unspecified (principal) | CPT/HCPCS: 87186 ==

== ENCOUNTER → 2018-04-21 | Outpatient (REF) | payer MEDICARE, MEDICAID ==
[2018-04-21 18:36] LABS: APPEARANCE, URINE HAZY (CLEAR); BACTERIA, URINE AUTO 1+ (NEGATIVE); BILIRUBIN, URINE AUTO NEGATIVE (NEGATIVE); BLOOD, URINE BLOOD 2+ (NEGATIVE); COLOR, URINE YELLOW (YELLOW); GLUCOSE, URINE (UA) AUTO NEGATIVE (NEGATIVE); KETONE, URINE AUTO NEGATIVE (NEGATIVE); LEUKOCYTE ESTERASE, URINE AUTO 3+ (NEGATIVE); MUCUS, URINE SMALL (NEGATIVE); NITRITE, URINE AUTO NEGATIVE (NEGATIVE); PROTEIN, URINE AUTO 1+ mg/dL (NEGATIVE); RBC, URINE AUTO 1 /HPF (0-3); SPECIFIC GRAVITY URINE AUTO 1.006 (1.002-1.035); SQUAMOUS EPITHELIAL CELL UR AU 1 /HPF (0-6); UROBILINOGEN, URINE AUTO 0.2 mg/dL (0.0-2.0); WBC, URINE AUTO 30 /HPF (0-3)
== END ==
LOC: M SMT 17:32
DX: N39.0 Urinary tract infection, site not specified (principal)
CPT/HCPCS: 81001

== ENCOUNTER 2018-05-05 13:55 | Emergency (ER) | payer MEDICARE, MEDICAID, OTHER | END 2018-05-05 15:59 | disposition home or self-care (01) | LOC: M ED 13:55 | DX: L03.031 Cellulitis of right toe (principal); L97.519 Non-pressure chronic ulcer of other part of right foot with unspecified severity; M20.41 Other hammer toe(s) (acquired), right foot; I10 Essential (primary) hypertension; J44.9 Chronic obstructive pulmonary disease, unspecified; E11.9 Type 2 diabetes mellitus without complications; B19.20 Unspecified viral hepatitis C without hepatic coma; E78.00 Pure hypercholesterolemia, unspecified; F33.9 Major depressive disorder, recurrent, unspecified; F41.9 Anxiety disorder, unspecified; G62.9 Polyneuropathy, unspecified; M81.0 Age-related osteoporosis without current pathological fracture; Z79.899 Other long term (current) drug therapy; Z88.0 Allergy status to penicillin; Z88.1 Allergy status to other antibiotic agents; Z88.2 Allergy status to sulfonamides; Z88.8 Allergy status to other drugs, medicaments and biological substances; Z91.041 Radiographic dye allergy status | CPT/HCPCS: 87186 ==

== ENCOUNTER → 2018-05-10 | Outpatient (REF) | payer MEDICARE, MEDICAID, OTHER ==
[2018-05-10 19:59] LABS: ALBUMIN 3.3 GM/DL (3.2-5.2); ALKALINE PHOSPHATASE 83 U/L (45-117); ALT/SGPT 26 U/L (12-78); ANION GAP 8 MEQ/L (8-16); AST/SGOT 20 U/L (7-37); BILIRUBIN,TOTAL 0.4 MG/DL (0.2-1.0); BLOOD UREA NITROGEN 16 MG/DL (7-18); CALCIUM LEVEL 8.5 MG/DL (8.8-10.2); CARBON DIOXIDE LEVEL 26 MEQ/L (21-32); CHLORIDE LEVEL 108 MEQ/L (98-107); CHOLESTEROL LEVEL 102 MG/DL (<200); CREATININE FOR GFR 0.91 MG/DL (0.55-1.30); GLOMERULAR FILTRATION RATE > 60.0 (>39); GLUCOSE, FASTING 69 MG/DL (70-100); HDL CHOLESTEROL 40 MG/DL (>40); LDL CHOLESTEROL 36 MG/DL (<100); NON-HDL-C 62 MG/DL; POTASSIUM SERUM 4.1 MEQ/L (3.5-5.1); SODIUM LEVEL 142 MEQ/L (136-145); TOTAL PROTEIN 6.6 GM/DL (6.4-8.2); TRIGLYCERIDES LEVEL 128 MG/DL (<150)
== END ==
LOC: M SFHCADAM 15:01
DX: R07.89 Other chest pain (principal); I11.9 Hypertensive heart disease without heart failure; E11.40 Type 2 diabetes mellitus with diabetic neuropathy, unspecified
CPT/HCPCS: 80053

== ENCOUNTER → 2018-05-19 | Outpatient (REF) | payer MEDICARE, MEDICAID, OTHER ==
[2018-05-19 14:22] LABS: APPEARANCE, URINE MANUAL CLEAR (CLEAR); BILIRUBIN, URINE MANUAL NEGATIVE (NEGATIVE); BLOOD URINE MANUAL NEGATIVE (NEGATIVE); COLOR, URINE MANUAL YELLOW (YELLOW); GLUCOSE, URINE (UA) MANUAL NEGATIVE (NEGATIVE); KETONE, URINE MANUAL NEGATIVE (NEGATIVE); LEUKOCYTE ESTERASE, URINE MAN NEGATIVE (NEGATIVE); MICROSCOPIC INDICATED? MAN NO (NO); NITRITE, URINE MANUAL NEGATIVE (NEGATIVE); PROTEIN, URINE MANUAL NEGATIVE (NEGATIVE); UROBILINOGEN, URINE MANUAL NORMAL (NORMAL)
== END ==
LOC: M SMT 13:29
DX: R33.9 Retention of urine, unspecified (principal); E11.40 Type 2 diabetes mellitus with diabetic neuropathy, unspecified; R07.89 Other chest pain
CPT/HCPCS: 81002; 83036

== ENCOUNTER → 2018-05-19 | Outpatient (CLI) | payer MEDICARE, MEDICAID, OTHER ==
[2018-05-19 13:49] LABS: HEMATOCRIT 37.2 % (36.0-47.0); HEMOGLOBIN 12.3 g/dl (12.0-15.5); MEAN CORPUSCULAR HEMOGLOBIN 29.2 pg (27.0-33.0); MEAN CORPUSCULAR HGB CONC 33.1 g/dl (32.0-36.5); MEAN CORPUSCULAR VOLUME 88.4 fl (80.0-96.0); PLATELET COUNT, AUTOMATED 110 10^3/uL (150-450); RED BLOOD COUNT 4.21 10^6/uL (4.00-5.40); RED CELL DISTRIBUTION WIDTH 12.4 % (11.5-14.5); WHITE BLOOD COUNT 3.1 10^3/uL (4.0-10.0)
[2018-05-19 19:06] LABS: ESTIMATED AVERAGE GLUCOSE 111 MG/DL (60-110); HEMOGLOBIN A1c 5.5 %
== END ==
LOC: M SMT 11:18
DX: E11.40 Type 2 diabetes mellitus with diabetic neuropathy, unspecified (principal); R07.89 Other chest pain; R33.9 Retention of urine, unspecified
CPT/HCPCS: 83036

== ENCOUNTER → 2018-07-18 | Outpatient (CLI) | payer MEDICARE, MEDICAID, OTHER ==
[~2018-07-18] MED LIST changes: +BACI500O8 TOP; +BACL10TA2 PO; +BACT800T5 PO; +CHAN1PAK13 PO; -CHAN1PAK9 PO; +EPCL1TAB PO; +FERR1TAB8 PO; +FLOM0.4C39 PO; +FOLI1TAB11 PO; -FOLI1TAB4 PO; -GABA-283 PO; +GABA-845 PO; +GLIM2TAB PO; +LISI-542 PO; +MACR100C43 PO; +MECL-68 PO; +METH-855 PO; +OXYB5TAB10 PO; +OXYC-404 PO; +OXYC15TA66 PO; -TRAZ-136 PO; +TRAZ-163 PO; +VENTAER INH
[2018-07-18 18:47] LABS: ALBUMIN 3.6 GM/DL (3.2-5.2); BILIRUBIN,TOTAL 0.5 MG/DL (0.2-1.0); CALCIUM LEVEL 8.7 MG/DL (8.8-10.2); CREATININE FOR GFR 1.05 MG/DL (0.55-1.30); GLOMERULAR FILTRATION RATE 54.8 (>39); POTASSIUM SERUM 4.1 MEQ/L (3.5-5.1); TOTAL PROTEIN 6.9 GM/DL (6.4-8.2)
[2018-07-18 18:56] LABS: BASO % 0.7 % (0.0-1.0); EOS # 0.2 10^3/uL (0.0-0.50); EOS % 4.6 % (0.0-3.0); HEMATOCRIT 36.6 % (36.0-47.0); HEMOGLOBIN 12.4 g/dl (12.0-15.5); LYMPH # 2.4 10^3/uL (1.5-4.5); LYMPH % 58.4 % (24.0-44.0); MEAN CORPUSCULAR HEMOGLOBIN 30.2 pg (27.0-33.0); MEAN CORPUSCULAR HGB CONC 33.9 g/dl (32.0-36.5); MEAN CORPUSCULAR VOLUME 89.3 fl (80.0-96.0); MONO # 0.9 10^3/uL (0.0-0.8); MONO % 20.8 % (0.0-5.0); NEUTROPHILS % 15.5 % (36.0-66.0); PLATELET COUNT, AUTOMATED 128 10^3/uL (150-450); WHITE BLOOD COUNT 4.1 10^3/uL (4.0-10.0)
[2018-07-18 19:13] LABS: NEUTROPHILS # 0.6 10^3/uL (1.8-7.7)
[2018-07-18 20:08] LABS: APPEARANCE, URINE MANUAL HAZY (CLEAR); COLOR, URINE MANUAL DK YELLOW (YELLOW)
[2018-07-18 20:09] LABS: BILIRUBIN, URINE MANUAL NEGATIVE (NEGATIVE); BLOOD URINE MANUAL TRACE (NEGATIVE); GLUCOSE, URINE (UA) MANUAL NEGATIVE (NEGATIVE); KETONE, URINE MANUAL NEGATIVE (NEGATIVE); LEUKOCYTE ESTERASE, URINE MAN POSITIVE (NEGATIVE); NITRITE, URINE MANUAL NEGATIVE (NEGATIVE); PROTEIN, URINE MANUAL TRACE mg/dL (NEGATIVE); UROBILINOGEN, URINE MANUAL NORMAL (NORMAL)
[2018-07-18 20:10] LABS: BACTERIA, URINE QNS; HYALINE CAST, URINE QNS /lpf (0-1); RBC, URINE QNS /hpf (0-3); SQUAMOUS EPITHELIAL CELL URINE QNS /hpf (SMALL AMT); WBC, URINE QNS /hpf (0-3)
== END ==
LOC: M SMT 14:34
PROVIDERS: ATTEND Specialist
DX: Z01.818 Encounter for other preprocedural examination (principal); R33.9 Retention of urine, unspecified

== ENCOUNTER → 2018-08-03 | Outpatient (REF) | payer MEDICARE, MEDICAID, OTHER | LOC: M SMT 17:08 | PROVIDERS: ATTEND Specialist | DX: N39.0 Urinary tract infection, site not specified (principal) ==

== ENCOUNTER 2018-08-12 07:24 | Day surgery (SDC) | payer MEDICARE, MEDICAID ==
[~2018-08-12] VITALS: Ht 177.8 cm; Wt 76.4 kg
[~2018-08-12 07:24] MED LIST changes: +LR 1,000 ML IV ONE; +TRIMETHOPRIM/SULFAMETHOXAZOLE 80 MG in D5W 100 ML IV ONE
[2018-08-12] MEDS ORDERED: VANCOMYCIN 1000 MG/20 ML VIAL (J3370) As Ordered ONE (08:27)
[2018-08-12] MEDS ORDERED: GENTAMICIN 80 MG in APPROPRIATE DILUENT 1 EA IV ONE (08:30)
[2018-08-12] MEDS ORDERED: LIDOCAINE 1% SDV INJ 30 ML VIAL As Ordered ONE (08:45)
[2018-08-12] MEDS ORDERED: BUPIVACAINE HCL 0.25% 30 ML VIAL As Ordered ONE (08:46)
[2018-08-12] MEDS ORDERED: dexameTHASONE 4 MG/ML 1ML VIAL (J1100) As Ordered ONE (08:55)
[2018-08-12] MEDS ORDERED: PROPOFOL 200 MG/20 ML VIAL As Ordered ONE (08:55)
[2018-08-12] MEDS ORDERED: fentaNYL 250 MCG/5 ML INJECTION (J3010) As Ordered ONE (08:55)
[2018-08-12] MEDS ORDERED: LIDOCAINE 2% INJ 100 MG/5 ML SDV (FOR ANES.) As Ordered ONE (08:55)
[2018-08-12] MEDS ORDERED: MIDAZOLAM INJ 2 MG/2 ML VIAL (J2250) As Ordered ONE (08:55)
[2018-08-12] MEDS ORDERED: ONDANSETRON 4MG/2ML VIAL (J2405) As Ordered ONE ×2 (08:55→11:34)
[2018-08-12] MEDS ORDERED: ROCURONIUM BROMIDE 50 MG/5 ML VIAL As Ordered ONE (08:55)
[2018-08-12] MEDS ORDERED: ePHEDrine SULFATE 25 MG/5 ML(5MG/ML) SYRINGE As Ordered ONE (09:25)
[2018-08-12] MEDS ORDERED: GLYCOPYRROLATE INJ 0.2 MG/ML 2 ML VIAL As Ordered ONE (10:40)
[2018-08-12] MEDS ORDERED: NEOSTIGMINE 10 MG/10 ML VIAL (J2710) As Ordered ONE (10:40)
[2018-08-12] MEDS ORDERED: ESMOLOL INJ 100MG/10ML VIAL As Ordered ONE (11:15)
--- NOTE | 2018-08-12 11:32 | ROOPDOC ---
[facility] Report Of Operation Report of Operation DATE OF PROCEDURE: 08/12/2018 PREOPERATIVE DIAGNOSIS: Urinary retention. POSTOPERATIVE DIAGNOSIS: Urinary retention. PROCEDURE: Open cystotomy and suprapubic catheter placement. SURGEON: Alexander Cunningham MD COORDINATOR [employer]ETING: ARIEL Mcgrath ANESTHESIA: General. OPERATIVE INDICATIONS: This is a 73-year-old female with urinary retention managed with chronic catheter placement. Due to recurrent urinary tract infections, it was recommended that we manage her retention with a suprapubic catheter instead. She is here today for suprapubic catheter placement. DESCRIPTION OF PROCEDURE: The patient was brought to the operating room where general anesthesia was induced. Prophylactic antibiotics were infused. She was then placed in the supine position and prepped and draped in the usual sterile fashion. A 16-Slovenian catheter was then inserted into the urethra and into the bladder. The balloon was inflated and the catheter was clamped. At this point, an approximately 5-cm midline suprapubic incision was made. I then dissected down through the subcutaneous tissues. The rectus fascia was then opened, and then the bellies of the rectus muscle were bluntly spread. I then dissected down to the bladder at this point. I then utilized the 16- Slovenian catheter to fill the bladder with approximately 120 mL of normal saline. A clamp was placed on this. I then dissected down through the perivesical fat; and then using a spinal needle, I aspirated an area that I thought was the bladder and confirmed it was indeed the bladder. Once that was done, a 3-0 chromic pursestring stitch was then placed at the dome of the bladder. A cystotomy was then performed using a combination of Bovie and a scissors. Once fluid started draining, a 20-Slovenian catheter was inserted into the cystotomy, and the balloon was filled with 7 mL of sterile water. The pursestring stitch was then tied down around the suprapubic catheter. At this point, the wound was thoroughly irrigated with warm normal saline. I then closed the rectus fascia using several figure-of-8 #1 nonlooped polydioxanone suture (PDS). Once the fascia was closed, the wound was thoroughly irrigated again with warm saline. I then reapproximated the subcutaneous tissues using interrupted 3-0 Vicryl suture. Once that was done, the skin was closed around the suprapubic catheter using running 4-0 Monocryl subcuticular stitch. Once the skin was closed, I then further secured the suprapubic catheter with two separate #0 Prolene sutures into the skin and around the catheter to help prevent it from being pulled accidentally. The urethral catheter was removed at this point. Once that was done, local anesthetic was applied, and then Dermabond was applied to the incision, and then this marked the conclusion of the procedure. The suprapubic catheter was then connected to gravity drainage. The patient was awakened from anesthesia and transported to the recovery room in stable condition. ESTIMATED BLOOD LOSS: 10 mL. COMPLICATIONS: None. SPECIMENS: None. PLAN: The patient will be followup in the clinic in approximately 6 weeks for her first suprapubic catheter change. ALEXANDER CUNNINGHAM MD Aug 12, 2018 11:32
[2018-08-12] MEDS ORDERED: fentaNYL 100 MCG/2 ML INJECTION (J3010) As Ordered ONE (11:33)
[2018-08-12] MEDS ORDERED: PERCOCET 5MG/325MG TAB As Ordered ONE (11:33)
[2018-08-12] MEDS: PERCOCET 5MG/325MG TAB PO PRN ×2 (11:37→12:03)
[2018-08-12] MEDS ORDERED: ONDANSETRON 4MG/2ML VIAL (J2405) IV PRN (11:45)
[2018-08-12] MEDS ORDERED: LR 1,000 ML IV SCH (11:45)
[2018-08-12] MEDS ORDERED: PERCOCET 5MG/325MG TAB PO PRN (11:45)
[2018-08-12] MEDS ORDERED: fentaNYL 100 MCG/2 ML INJECTION (J3010) IV PRN (11:45)
[2018-08-12 13:25] VITALS: BP 155/77
[2018-08-13] MEDS ORDERED: VANCOMYCIN HCL 1,000 MG, VIAL MATE ADAPTER 1 EACH in D5W 250 ML IV ONE (06:00)
== END 2018-08-12 13:37 | disposition home or self-care (01) ==
LOC: M SDC 07:24
PROVIDERS: ATTEND Urology
DX: R33.9 Retention of urine, unspecified (principal); E11.9 Type 2 diabetes mellitus without complications; I10 Essential (primary) hypertension; Z79.82 Long term (current) use of aspirin; F41.9 Anxiety disorder, unspecified; F32.9 Major depressive disorder, single episode, unspecified; F17.210 Nicotine dependence, cigarettes, uncomplicated; Z85.3 Personal history of malignant neoplasm of breast; Z79.51 Long term (current) use of inhaled steroids; Z79.899 Other long term (current) drug therapy
CPT/HCPCS: 51102; J1100; J1580; J2250; J2405; J2710; J3010

== ENCOUNTER 2018-08-16 17:52 | Emergency (ER) | payer MEDICARE, MEDICAID ==
[~2018-08-16] VITALS: Ht 177.8 cm; Wt 75.0 kg
[~2018-08-16 17:52] MED LIST changes: -LR 1,000 ML IV ONE; -TRIMETHOPRIM/SULFAMETHOXAZOLE 80 MG in D5W 100 ML IV ONE
[2018-08-16 20:04] LABS: HEMATOCRIT 32.4 % (36.0-47.0); HEMOGLOBIN 11.2 g/dl (12.0-15.5); MEAN CORPUSCULAR HEMOGLOBIN 30.6 pg (27.0-33.0); MEAN CORPUSCULAR HGB CONC 34.6 g/dl (32.0-36.5); MEAN CORPUSCULAR VOLUME 88.5 fl (80.0-96.0); PLATELET COUNT, AUTOMATED 122 10^3/uL (150-450); RED BLOOD COUNT 3.66 10^6/uL (4.00-5.40); WHITE BLOOD COUNT 2.8 10^3/uL (4.0-10.0)
[2018-08-16 20:34] LABS: ALT/SGPT 12 U/L (12-78); BILIRUBIN,TOTAL 0.5 MG/DL (0.2-1.0); BLOOD UREA NITROGEN 15 MG/DL (7-18); C REACTIVE PROTEIN QUANTITATIV 4.92 MG/DL (0.00-0.30); CALCIUM LEVEL 8.2 MG/DL (8.8-10.2); CARBON DIOXIDE LEVEL 28 MEQ/L (21-32); CHLORIDE LEVEL 107 MEQ/L (98-107); CREATININE FOR GFR 0.83 MG/DL (0.55-1.30); GLOMERULAR FILTRATION RATE > 60.0 (>39); GLUCOSE, FASTING 175 MG/DL (70-100); POTASSIUM SERUM 4.9 MEQ/L (3.5-5.1); SODIUM LEVEL 139 MEQ/L (136-145); TOTAL PROTEIN 6.3 GM/DL (6.4-8.2)
--- NOTE | 2018-08-16 20:34 | REPVR ---
EXAM: CT Abdomen and Pelvis Without Contrast EXAM DATE/TIME: 08/16/2018 7:47 PM CLINICAL HISTORY: 73 years old, female; Pain; Abdominal pain; Generalized; Prior surgery; Surgery date: <1 month; Surgery type: Hernia; Additional info: Pain, swelling around ostomy TECHNIQUE: Axial computed tomography images of the abdomen and pelvis without contrast. All CT scans at this facility use at least one of these dose optimization techniques: automated exposure control; mA and/or kV adjustment per patient size (includes targeted exams where dose is matched to clinical indication); or iterative reconstruction. Coronal and sagittal reformatted images were created and reviewed. COMPARISON: CT ABD PELVIS W/O CONTRAST 05/17/2017 8:56 AM FINDINGS: Tubes, catheters and devices: Suprapubic catheter in the bladder. Lower thorax: Minimal bilateral lower lobe fibro-atelectatic change with minimal bronchiectasis. ABDOMEN: Liver: Normal. No mass. Gallbladder and bile ducts: Status post cholecystectomy. Pancreas: Normal. No ductal dilation. Spleen: The spleen measures 17.0 cm. Adrenals: Normal. No mass. Kidneys and ureters: Exophytic right renal cyst measuring up to 4.1 cm with a Hounsfield measurement of 7 and is similar to the prior study. Stomach and bowel: Colostomy at the level of the transverse colon in the lower right abdomen with herniation of distal colon into the subcutaneous pocket. The distal colon remains in situ. Appendix: There are no changes of appendicitis. A normal appendix is not seen. PELVIS: Bladder: Unremarkable as visualized. Reproductive: Unremarkable as visualized. ABDOMEN and PELVIS: Intraperitoneal space: Normal. No free air. No significant fluid collection. Bones/joints: Prosthetic left hip in position. Soft tissues: Unremarkable. Vasculature: There is mild calcification of the abdominal aorta with extension into the iliac arteries. Lymph nodes: Normal. No enlarged lymph nodes. IMPRESSION: 1. Bilateral lower lobe fibro-atelectatic change with some associated bronchiectasis which is slightly increased overall since 05/17/2017. 2. Suprapubic catheter in the bladder which is new since the prior study. 3. Right lower quadrant colostomy with associated ostomy hernia and herniation of distal colon into the subcutaneous sac which is similar. 4. Status post cholecystectomy. 5. Splenomegaly. Electronically signed by: Lewis Hernandez On 08/16/2018 20:34:23 PM
[2018-08-16 20:56] LABS: ERYTHROCYTE SEDIMENTATION RATE 54 mm/hr (0-30)
[2018-08-16 22:20] VITALS: BP 165/77
--- NOTE | 2018-08-17 14:40 | ED PDOC ---
Post-Departure Follow-Up filiberto gambino faxed formal report of ct abd/p for fu Russell Suh MD Aug 17, 2018 14:40
== END 2018-08-16 22:20 | disposition home or self-care (01) ==
LOC: EDBD 17:52 → M ED 17:52
DX: K94.09 Other complications of colostomy (principal); L89.892 Pressure ulcer of other site, stage 2; K21.9 Gastro-esophageal reflux disease without esophagitis; I10 Essential (primary) hypertension; E78.5 Hyperlipidemia, unspecified; B19.20 Unspecified viral hepatitis C without hepatic coma; J44.9 Chronic obstructive pulmonary disease, unspecified; F32.9 Major depressive disorder, single episode, unspecified

== ENCOUNTER 2018-08-20 13:53 | Emergency (ER) | payer MEDICARE, MEDICAID ==
[~2018-08-20] VITALS: Ht 177.8 cm; Wt 72.7 kg
[2018-08-20 15:46] LABS: BASO % 0.5 % (0.0-1.0); EOS # 0.3 10^3/uL (0.0-0.50); EOS % 6.6 % (0.0-3.0); HEMATOCRIT 34.7 % (36.0-47.0); HEMOGLOBIN 11.9 g/dl (12.0-15.5); LYMPH % 53.8 % (24.0-44.0); MEAN CORPUSCULAR HEMOGLOBIN 30.3 pg (27.0-33.0); MEAN CORPUSCULAR HGB CONC 34.3 g/dl (32.0-36.5); MEAN CORPUSCULAR VOLUME 88.3 fl (80.0-96.0); MONO # 0.7 10^3/uL (0.0-0.8); MONO % 19.1 % (0.0-5.0); PLATELET COUNT, AUTOMATED 145 10^3/uL (150-450); RED BLOOD COUNT 3.93 10^6/uL (4.00-5.40); WHITE BLOOD COUNT 3.8 10^3/uL (4.0-10.0)
[2018-08-20 15:59] LABS: INR 0.97; PARTIAL THROMBOPLASTIN TIME 24.6 SECONDS (25.4-37.6)
[2018-08-20 16:05] LABS: ALBUMIN 3.3 GM/DL (3.2-5.2); BILIRUBIN,DIRECT 0.3 MG/DL (0.0-0.2); BILIRUBIN,TOTAL 0.5 MG/DL (0.2-1.0); CALCIUM LEVEL 8.3 MG/DL (8.8-10.2); CREATININE FOR GFR 1.09 MG/DL (0.55-1.30); GLOMERULAR FILTRATION RATE 52.5 (>39); POTASSIUM SERUM 4.2 MEQ/L (3.5-5.1); TOTAL PROTEIN 6.8 GM/DL (6.4-8.2)
[2018-08-20 16:23] LABS: NEUTROPHILS # 0.8 10^3/uL (1.8-7.7)
[2018-08-20] MEDS ORDERED: NS 1,000 ML IV ONE (18:30)
[2018-08-20] MEDS ORDERED: ANEXSIA, NORCO 7.5MG/325MG TABLET(HYDROCODONE/APAP) PO ONE (19:00)
--- NOTE | 2018-08-20 19:46 | REPVR ---
EXAM: US Pelvis Limited, Transabdominal EXAM DATE/TIME: 08/20/2018 6:54 PM CLINICAL HISTORY: 73 years old, female; Device placement; Other: Suprapubic catheter placement; Prior surgery; Surgery date: 3-7 days post-operative; Additional info: Suprapubic placement TECHNIQUE: Real-time transabdominal pelvic ultrasound with image documentation. Limited exam. COMPARISON: CT ABD PELVIS W/O CONTRAST 08/20/2018 4:30 PM FINDINGS: Bladder: Fluid was injected through the tube into the urinary bladder approximately 160 cc of saline. The urinary bladder is distended and the tip of the catheter with the Tamez balloon was identified. The Tamez catheter passes through the subcutaneous layer where there is swelling and edema. There is no large fluid collection in the subcutaneous region. IMPRESSION: A superpubic catheter is thought to have its tip at the base of the urinary bladder as the urinary bladder distends with injection of saline. Electronically signed by: Isaías Guerra On 08/20/2018 19:46:41 PM
[2018-08-20 20:30] VITALS: BP 152/63
--- NOTE | 2018-08-21 09:35 | REP ---
CT ABDOMEN AND PELVIS WITHOUT CONTRAST: CT abdomen and pelvis performed without oral or IV contrast. Sagittal and coronal reconstruction images are performed. Comparison made with a prior study of 08/16/2018. Once again there are fibroatelectatic changes and bronchiectasis in the visualized lower lobes. Liver is grossly unremarkable. Patient has had a prior cholecystectomy. I do not see evidence of biliary dilatation. Splenomegaly is again noted. Adrenals and pancreas are grossly unremarkable. There is a right renal cyst again seen without evidence of hydronephrosis or nephrolithiasis bilaterally. There are mild atherosclerotic calcifications of the abdominal aorta without aneurysm. I see no gross adenopathy. I see no free air or free fluid. Right lower quadrant anterior abdominal hernia is seen at an ostomy site with herniation of colon into the abdominal wall hernia adjacent to the ostomy. There is a suprapubic catheter entering the lower pelvis anteriorly. There is no gross fluid collection at the catheter entrance site at the anterior pelvic wall. The distal end of the catheter cannot be ascertained to be located within the urinary bladder due to extensive artifact from a metallic left hip prosthesis. The lower pelvic structures are essentially obscured by this artifact. IMPRESSION: Right lower quadrant ostomy with an adjacent anterior abdominal wall hernia containing colon as seen on prior study. Splenomegaly again noted. Suprapubic catheter is again seen entering the anterior wall of the pelvis inferiorly. Exact tip location cannot be ascertained due to extensive artifact from an adjacent metallic hip prosthesis. I cannot confirm that the tip is in the bladder. I see no definite fluid collection in the anterior wall of the pelvis at the insertion site of the suprapubic catheter. Please note there is thickening of the inferior left rectus muscle at the entrance site of the suprapubic catheter which may represent an intramuscular hematoma. Again visualization is limited due to adjacent artifact from the hip prosthesis. Electronically Signed by Ramsey Hanson MD 08/21/2018 06:53 P
== END 2018-08-20 20:34 | disposition home or self-care (01) ==
LOC: M ED 13:53 → EDBD 13:53 → M ED 20:34
DX: Z43.5 Encounter for attention to cystostomy (principal); R33.9 Retention of urine, unspecified; E10.9 Type 1 diabetes mellitus without complications; E78.9 Disorder of lipoprotein metabolism, unspecified; B19.20 Unspecified viral hepatitis C without hepatic coma; I10 Essential (primary) hypertension; F41.9 Anxiety disorder, unspecified; F32.9 Major depressive disorder, single episode, unspecified; Z90.49 Acquired absence of other specified parts of digestive tract; Z87.19 Personal history of other diseases of the digestive system; G43.909 Migraine, unspecified, not intractable, without status migrainosus; Z91.041 Radiographic dye allergy status; Z88.8 Allergy status to other drugs, medicaments and biological substances; Z88.5 Allergy status to narcotic agent; Z88.0 Allergy status to penicillin; Z88.2 Allergy status to sulfonamides; Z79.899 Other long term (current) drug therapy; Z79.51 Long term (current) use of inhaled steroids; Z90.13 Acquired absence of bilateral breasts and nipples

== ENCOUNTER → 2018-09-23 | Outpatient (REF) | payer MEDICARE, MEDICAID, OTHER | LOC: M SMT 13:15 | PROVIDERS: ATTEND Urology | DX: N39.0 Urinary tract infection, site not specified (principal) ==

== ENCOUNTER → 2018-10-25 | Outpatient (REF) | payer MEDICARE, OTHER ==
[~2018-10-25] MED LIST changes: -/ADVA50050; -/ADVA50050 IN; -/ADVA50050 INH; -/FENT75PA; -/FENT75PA TD; -/TIOT18INH; -/TIOT18INH INH; +ADVA1AER2; +ADVA1AER2 IN; +ADVA1AER2 INH; +FENT1DIS16; +FENT1DIS16 TD; +LISI40TA52 PO; -LISI40TAB PO; +METO1TAB63 PO; -METO25TAB PO; -NORC10TA21 PO; +NORC1TAB5 PO; +SPIR1CAP; +SPIR1CAP INH
[2018-10-25 19:13] LABS: APPEARANCE, URINE CLOUDY (CLEAR); BACTERIA, URINE AUTO 2+ (NEGATIVE); BILIRUBIN, URINE AUTO NEGATIVE (NEGATIVE); BLOOD, URINE BLOOD 2+ (NEGATIVE); COLOR, URINE YELLOW (YELLOW); GLUCOSE, URINE (UA) AUTO NEGATIVE (NEGATIVE); KETONE, URINE AUTO NEGATIVE (NEGATIVE); LEUKOCYTE ESTERASE, URINE AUTO 3+ (NEGATIVE); MUCUS, URINE SMALL (NEGATIVE); NITRITE, URINE AUTO NEGATIVE (NEGATIVE); PROTEIN, URINE AUTO 1+ mg/dL (NEGATIVE); RBC, URINE AUTO 97 /HPF (0-3); SPECIFIC GRAVITY URINE AUTO 1.012 (1.002-1.035); SQUAMOUS EPITHELIAL CELL UR AU 0 /HPF (0-6); UROBILINOGEN, URINE AUTO 0.2 mg/dL (0.0-2.0); WBC, URINE AUTO TNTC /HPF (0-3)
== END ==
LOC: M SMT 17:20
PROVIDERS: ATTEND Nurse Practitioner Family
DX: Z93.59 Other cystostomy status (principal)

== ENCOUNTER → 2018-11-25 | Outpatient (CLI) | payer MEDICARE, MEDICAID ==
--- NOTE | 2018-12-02 13:48 | DEXA ---
AP SPINE L1 - L4 1.082 -0.9 0.8 LT FEMUR TOTAL Left hip replacement. LT NECK RT FEMUR TOTAL 0.710 -2.4 -0.8 RT NECK 0.737 -2.2 -0.4 TOTAL BODY TOTAL OTHER COMMENTS: Normal bone densitometry of the spine. There is low bone density of the right hip. FOLLOW-UP: Recommendation for the next bone density exam: 2 years. SASCHA
== END ==
LOC: M WHC 13:00
PROVIDERS: ATTEND Physician Assistant
DX: Z13.820 Encounter for screening for osteoporosis (principal); M85.851 Other specified disorders of bone density and structure, right thigh

== ENCOUNTER → 2019-03-15 | Outpatient (CLI) | payer MEDICARE, MEDICAID ==
[~2019-03-15] MED LIST changes: +CLOP75TA2 PO; -DIPH25CA PO; +DIPH25CA32 PO; +E-Z-GAS II EFFERVESCENT PACKET (SODIUM BICARB./CITRIC ACID/SIMETHICONE) As Ordered ONE; +E-Z-HD 98% w/w 340GM SUSP BTL As Ordered ONE; +E-Z-PAQUE 96% w/w SUSP 176GM BTL As Ordered ONE; +FENT12DI8 TD; -GLIM2TAB PO; +GLIM2TAB4 PO; -MECL-68 PO; +MECL1TAB31 PO; +MIRT1TAB16 PO; +OMEP1CAP73 PO; -OMEP20CA3 PO; -SIMV20TA2 PO; +SIMV20TA22 PO; -TRAZ-163 PO; +TRAZ-257 PO; +VANC1CAP6 PO; +ZOFR4TAB16 PO
--- NOTE | 2019-03-15 16:19 | REP ---
Esophagram The procedure was performed under the direct supervision of Dr. Hanson. The images were reviewed with Dr. Hanson. A single view PA chest x-ray is submitted as a supplier diversity director film. There is no change compared to a previous chest x-ray performed on 01/28/2018. Liquid barium and gas producing granules were given in the erect position as well as liquid barium in the prone oblique positions in order to perform a double contrast esophagram examination. During the oral and pharyngeal stages of deglutition there is laryngeal penetration. There are esophageal transport there are tertiary waves with to-and-fro motion. There is no esophagitis, stricture, mucosal ring or hiatal hernia. Gastroesophageal reflux is not demonstrated on this examination. Impression: 1. Laryngeal penetration 2. There are esophageal transport there are tertiary waves with to-and-fro motion. 0.8 minutes of fluoro time was utilized for this procedure. Reviewed by NELIA Mendoza 03/15/2019 04:08 P Electronically Signed by Ramsey Hanson MD 03/15/2019 04:10 P
== END ==
LOC: M RAD 10:04
PROVIDERS: ATTEND Physician Assistant
DX: R13.14 Dysphagia, pharyngoesophageal phase (principal)

== ENCOUNTER → 2019-04-20 | Outpatient (REF) | payer MEDICARE, MEDICAID, OTHER ==
[~2019-04-20] MED LIST changes: -E-Z-GAS II EFFERVESCENT PACKET (SODIUM BICARB./CITRIC ACID/SIMETHICONE) As Ordered ONE; -E-Z-HD 98% w/w 340GM SUSP BTL As Ordered ONE; -E-Z-PAQUE 96% w/w SUSP 176GM BTL As Ordered ONE
[2019-04-21 13:54] LABS: BACTERIA, URINE AUTO 3+ (NEGATIVE); MUCUS, URINE SMALL (NEGATIVE); RBC, URINE AUTO 0 /HPF (0-3); SQUAMOUS EPITHELIAL CELL UR AU 0 /HPF (0-6); WBC, URINE AUTO 55 /HPF (0-3)
== END ==
LOC: M SMT 13:05
PROVIDERS: ATTEND Specialist
DX: N39.0 Urinary tract infection, site not specified (principal)

== ENCOUNTER → 2019-04-28 | Outpatient (CLI) | payer MEDICARE, MEDICAID, OTHER ==
[~2019-04-28] MED LIST changes: -CLOP75TA2 PO; -FENT12DI8 TD; +GLIM2TAB2 PO; -GLIM2TAB4 PO; +MECL-68 PO; -MECL1TAB31 PO; -MIRT1TAB16 PO; -OMEP1CAP73 PO; +OMEP20CA4 PO; +SIMV20TA2 PO; -SIMV20TA22 PO; +TRAZ-163 PO; -TRAZ-257 PO; -VANC1CAP6 PO; -ZOFR4TAB16 PO
[2019-04-28 13:24] LABS: HEMATOCRIT 41.8 % (36.0-47.0); HEMOGLOBIN 13.8 g/dl (12.0-15.5); MEAN CORPUSCULAR HEMOGLOBIN 29.6 pg (27.0-33.0); MEAN CORPUSCULAR VOLUME 89.5 fl (80.0-96.0); PLATELET COUNT, AUTOMATED 155 10^3/uL (150-450); RED BLOOD COUNT 4.67 10^6/uL (4.00-5.40); WHITE BLOOD COUNT 3.2 10^3/uL (4.0-10.0)
[2019-04-28 13:57] LABS: ALBUMIN 3.7 GM/DL (3.2-5.2); BILIRUBIN,TOTAL 0.4 MG/DL (0.2-1.0); CALCIUM LEVEL 9.2 MG/DL (8.8-10.2); CHOLESTEROL RISK RATIO 4.205 (<5); CREATININE FOR GFR 1.16 MG/DL (0.55-1.30); GLOMERULAR FILTRATION RATE 48.8 (>39); POTASSIUM SERUM 4.5 MEQ/L (3.5-5.1); TOTAL PROTEIN 7.7 GM/DL (6.4-8.2)
== END ==
LOC: M SMT 09:06
PROVIDERS: ATTEND Physician Assistant
DX: I11.9 Hypertensive heart disease without heart failure (principal); F17.211 Nicotine dependence, cigarettes, in remission; E11.40 Type 2 diabetes mellitus with diabetic neuropathy, unspecified

== ENCOUNTER 2019-05-09 13:45 | Outpatient (RCR) | payer MEDICARE, MEDICAID | END 2019-05-11 | LOC: M PT 13:45 | PROVIDERS: ATTEND Physician Assistant | DX: M54.5 Low back pain (principal); M12.9 Arthropathy, unspecified; R13.10 Dysphagia, unspecified ==

== ENCOUNTER 2019-05-23 15:55 | Emergency (ER) | payer MEDICARE, MEDICAID ==
[~2019-05-23] VITALS: Ht 177.8 cm; Wt 72.7 kg
[2019-05-23] MEDS ORDERED: NS 1,000 ML IV ONE (18:15)
[2019-05-23] MEDS ORDERED: PANTOPRAZOLE 40MG INJ (PROTONIX) (C9113) IV ONE (18:15)
[2019-05-23] MEDS ORDERED: KETOROLAC 30 MG/ML VIAL (J1885) IV ONE (18:15)
[2019-05-23 18:35] LABS: BASO % 0.3 % (0.0-1.0); EOS # 0.1 10^3/uL (0.0-0.5); EOS % 2.3 % (0.0-3.0); HEMATOCRIT 30.4 % (36.0-47.0); HEMOGLOBIN 10.4 g/dl (12.0-15.5); LYMPH # 1.5 10^3/uL (1.5-5.0); LYMPH % 48.4 % (24.0-44.0); MEAN CORPUSCULAR HEMOGLOBIN 29.6 pg (27.0-33.0); MEAN CORPUSCULAR HGB CONC 34.2 g/dl (32.0-36.5); MEAN CORPUSCULAR VOLUME 86.6 fl (80.0-96.0); MONO # 0.9 10^3/uL (0.0-0.8); MONO % 28.2 % (0.0-5.0); NEUTROPHILS % 20.5 % (36.0-66.0); PLATELET COUNT, AUTOMATED 178 10^3/uL (150-450); RED BLOOD COUNT 3.51 10^6/uL (4.00-5.40); WHITE BLOOD COUNT 3.1 10^3/uL (4.0-10.0)
[2019-05-23 18:48] LABS: NEUTROPHILS # 0.6 10^3/uL (1.5-8.5)
[2019-05-23 18:57] LABS: ALBUMIN 2.7 GM/DL (3.2-5.2); BILIRUBIN,DIRECT 0.3 MG/DL (0.0-0.2); BILIRUBIN,TOTAL 0.5 MG/DL (0.2-1.0); CALCIUM LEVEL 7.8 MG/DL (8.8-10.2); CREATININE FOR GFR 1.01 MG/DL (0.55-1.30); GLOMERULAR FILTRATION RATE 57.2 (>39); POTASSIUM SERUM 4.1 MEQ/L (3.5-5.1); TOTAL PROTEIN 6.3 GM/DL (6.4-8.2)
[2019-05-23] MEDS ORDERED: ONDANSETRON 4MG/2ML VIAL (J2405) IV ONE (19:00)
[2019-05-23 19:05] LABS: INR 1.1; PROTHROMBIN TIME 13.9 SECONDS (11.8-14.0)
--- NOTE | 2019-05-23 19:12 | REP ---
Abdomen series: Four views. History: Abdomen pain. Comparison chest radiographs January 28, 2018. Findings: Chest x-ray shows clear well inflated lungs, sharp pleural angles. No infiltrate or free subdiaphragmatic air is seen. Heart size is normal. Supine and cross-table horizontal beam lateral views of the abdomen demonstrate air fluid levels scattered about the colon. There are surgical clips in the right upper quadrant, pelvis and left mid abdomen. There appears to be a suprapubic cystostomy catheter. There are surgical sutures in the central pelvis. A left hip arthroplasty is seen. Impression: No evidence of free intraperitoneal air. No evidence of obstruction. Colonic air fluid levels. Postoperative changes. Suprapubic cystostomy catheter. Electronically Signed by Thomas Beauchamp MD 05/23/2019 08:12 P
[2019-05-23 21:25] LABS: CLOSTRIDIUM DIFFICILE PCR POSITIVE (NEGATIVE)
[2019-05-23] MEDS ORDERED: VANCOMYCIN HCL 750 MG, VIAL MATE ADAPTER 1 EACH in D5W 250 ML IV ONE (21:30)
[2019-05-23] MEDS ORDERED: ZOFR4TAB16 PO (21:50)
[2019-05-23] MEDS ORDERED: VANC1CAP6 PO (21:50)
[2019-05-23 23:14] VITALS: BP 145/68
== END 2019-05-23 23:30 | disposition home or self-care (01) ==
LOC: EDBD 15:55 → M ED 15:55
DX: A04.72 Enterocolitis due to Clostridium difficile, not specified as recurrent (principal); N39.0 Urinary tract infection, site not specified; R11.0 Nausea; R19.7 Diarrhea, unspecified; I51.9 Heart disease, unspecified; I10 Essential (primary) hypertension; G43.909 Migraine, unspecified, not intractable, without status migrainosus; F17.200 Nicotine dependence, unspecified, uncomplicated; Z96.0 Presence of urogenital implants; Z96.642 Presence of left artificial hip joint; Z79.899 Other long term (current) drug therapy; Z88.0 Allergy status to penicillin; Z88.2 Allergy status to sulfonamides; Z88.1 Allergy status to other antibiotic agents; Z88.5 Allergy status to narcotic agent; Z91.041 Radiographic dye allergy status
CPT/HCPCS: 74021; 80048; 80076; 81001; 82150; 83690; 85025; 85610; 87088; 87186; 87493; 96374; 96375; 99284; C9113; J1885; J2405; J3370

== ENCOUNTER 2019-06-06 13:37 | Outpatient (RCR) | payer MEDICARE, MEDICAID ==
[~2019-06-06 13:37] MED LIST changes: -SIMV20TA2 PO; +SIMV20TA22 PO; +VANC1CAP6 PO; +ZOFR4TAB16 PO
== END 2019-06-10 ==
LOC: M PT 13:37
PROVIDERS: ATTEND Physician Assistant
DX: R13.10 Dysphagia, unspecified (principal); M54.5 Low back pain; M12.9 Arthropathy, unspecified

== ENCOUNTER → 2019-06-07 | Outpatient (CLI) | payer MEDICARE, MEDICAID ==
--- NOTE | 2019-06-09 08:44 | REP ---
Examination Requested: Cookie Swallow Reason For Exam: Dysphasia The procedure was performed by Kaylene Balderrama, RSA, under the direct supervision of Dr. Ch. The procedure was performed with Victoria Desir and Shannan Morfin from speech pathology present. 5 ml aliquots of thin, pudding, mixed fruit, soft food, and pill consistency barium was administered. No laryngeal penetration or aspiration was visualized throughout the course of the exam. The detailed report of this examination will be provided by speech pathology. 1.3 minutes of fluoroscopy time was utilized for this procedure. Reviewed by NELIA Roe 06/07/2019 03:44 P Electronically Signed by Gordon Ch MD 06/09/2019 08:35 A
== END ==
LOC: M ST 13:37
PROVIDERS: ATTEND Physician Assistant
DX: R13.10 Dysphagia, unspecified (principal)

== ENCOUNTER 2019-06-30 07:54 | Outpatient (CLI) | payer MEDICARE, MEDICAID ==
[~2019-06-30] VITALS: Ht 182.9 cm; Wt 76.4 kg
[2019-06-30] MEDS ORDERED: ZOLEDRONIC ACID 5 MG in IV 1 EA IV ONE (08:15)
[2019-06-30 08:20] VITALS: BP 108/55
[2019-06-30 10:35] VITALS: BP 122/58
--- NOTE | 2019-06-30 17:52 | ECGEPIP ---
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
[2019-07-14] MEDS ORDERED: MIRT1TAB16 PO (11:24)
[2019-07-14] MEDS ORDERED: CLOP75TA2 PO (11:46)
== END 2019-06-30 10:35 | disposition home or self-care (01) ==
LOC: M INFU 07:54
PROVIDERS: ATTEND Physician Assistant
DX: Z01.818 Encounter for other preprocedural examination (principal); M81.0 Age-related osteoporosis without current pathological fracture; M20.12 Hallux valgus (acquired), left foot; M20.42 Other hammer toe(s) (acquired), left foot; Z88.0 Allergy status to penicillin; Z88.2 Allergy status to sulfonamides; Z88.5 Allergy status to narcotic agent; Z88.6 Allergy status to analgesic agent; Z88.8 Allergy status to other drugs, medicaments and biological substances; Z91.041 Radiographic dye allergy status

== ENCOUNTER → 2019-06-30 | Outpatient (CLI) | payer MEDICARE, MEDICAID ==
[~2019-06-30] MED LIST changes: +OMEP-172 PO; -OMEP20CA4 PO
[2019-06-30 10:29] LABS: BASO % 0.8 % (0.0-1.0); EOS # 0.1 10^3/uL (0.0-0.5); HEMATOCRIT 38.8 % (36.0-47.0); HEMOGLOBIN 12.6 g/dl (12.0-15.5); LYMPH # 1.3 10^3/uL (1.5-5.0); LYMPH % 35.9 % (24.0-44.0); MEAN CORPUSCULAR HEMOGLOBIN 28.6 pg (27.0-33.0); MEAN CORPUSCULAR HGB CONC 32.5 g/dl (32.0-36.5); MEAN CORPUSCULAR VOLUME 88.2 fl (80.0-96.0); MONO # 0.4 10^3/uL (0.0-0.8); MONO % 11.9 % (0.0-5.0); NEUTROPHILS # 1.7 10^3/uL (1.5-8.5); NEUTROPHILS % 48.8 % (36.0-66.0); PLATELET COUNT, AUTOMATED 148 10^3/uL (150-450); WHITE BLOOD COUNT 3.5 10^3/uL (4.0-10.0)
[2019-06-30 10:59] LABS: CALCIUM LEVEL 8.8 MG/DL (8.8-10.2); CREATININE FOR GFR 1.01 MG/DL (0.55-1.30); GLOMERULAR FILTRATION RATE 57.2 (>39); POTASSIUM SERUM 4.1 MEQ/L (3.5-5.1)
--- NOTE | 2019-06-30 13:16 | REP ---
Two-view chest: 06/30/2019. Indication: Preoperative assessment. Comparison: 01/28/2018. Findings: The lungs are clear. There is no pleural effusion or pneumothorax. The cardiomediastinal silhouette is unremarkable. Radiopaque body external to the patient is noted. The lungs are hyperinflated and there is leveling of the diaphragms suggesting underlying COPD. Impression: No acute cardiopulmonary process. Electronically Signed by Beto Huerta DO 06/30/2019 01:07 P
== END ==
LOC: M LAB 07:51
PROVIDERS: ATTEND Podiatrist
DX: Z01.818 Encounter for other preprocedural examination (principal)

== ENCOUNTER → 2019-07-11 | Outpatient (RCR) | payer MEDICARE, MEDICAID | LOC: M PT 06-27 13:36 → M ST 06-27 13:37 → M PT 07-06 13:38 | PROVIDERS: ATTEND Physician Assistant | DX: M54.5 Low back pain (principal); M12.9 Arthropathy, unspecified; R13.10 Dysphagia, unspecified ==

== ENCOUNTER 2019-07-21 05:34 | Day surgery (SDC) | payer MEDICARE, MEDICAID ==
[~2019-07-21] VITALS: Ht 177.8 cm; Wt 74.4 kg
[~2019-07-21 05:34] MED LIST changes: +CLOP75TA2 PO; -GLIM2TAB2 PO; +GLIM2TAB4 PO; -MECL-68 PO; +MECL1TAB31 PO; +MIRT1TAB16 PO; -OMEP-172 PO; +OMEP1CAP73 PO; -TRAZ-163 PO; +TRAZ-257 PO
[2019-07-21] MEDS ORDERED: VANCOMYCIN HCL 1,000 MG, VIAL MATE ADAPTER 1 EACH in D5W 250 ML IV ONE (06:00)
[2019-07-21] MEDS ORDERED: LR 1,000 ML IV ONE (06:00)
[2019-07-21] MEDS ORDERED: dexameTHASONE 4 MG/ML 1ML VIAL (J1100) As Ordered ONE (07:00)
[2019-07-21] MEDS ORDERED: BUPIVACAINE HCL 0.5% 10 ML VIAL As Ordered ONE ×2 (07:00→07:13)
[2019-07-21] MEDS ORDERED: ROPIvacaine 0.5% 30 ML INJECTION (J2795 PER 1MG) As Ordered ONE (07:00)
[2019-07-21] MEDS ORDERED: LIDOCAINE 2% MDV 20 ML VIAL As Ordered ONE (07:00)
[2019-07-21] MEDS ORDERED: BACITRACIN PWD 50,000 UNITS VIAL As Ordered ONE (07:01)
[2019-07-21] MEDS ORDERED: NEOSPORIN GU IRRIG 20 ML VIAL As Ordered ONE (07:02)
[2019-07-21] MEDS ORDERED: LIDOCAINE 2% INJ 100 MG/5 ML SDV (FOR ANES.) As Ordered ONE (07:14)
[2019-07-21] MEDS ORDERED: MIDAZOLAM INJ 2 MG/2 ML VIAL (J2250) As Ordered ONE (07:14)
[2019-07-21] MEDS ORDERED: propofoL 200 MG/20 ML VIAL As Ordered ONE ×3 (07:14→09:08)
[2019-07-21] MEDS ORDERED: fentaNYL 100 MCG/2 ML INJECTION (J3010) As Ordered ONE (07:15)
[2019-07-21] MEDS ORDERED: FENT12DI8 TD (07:31)
[2019-07-21] MEDS ORDERED: fentaNYL 100 MCG/2 ML INJECTION (J3010) IV PRN (10:00)
[2019-07-21] MEDS ORDERED: PERCOCET 5MG/325MG TAB PO PRN (10:00)
[2019-07-21] MEDS ORDERED: LR 1,000 ML IV SCH (10:00)
[2019-07-21] MEDS ORDERED: HYDROMORPHONE HCL 0.5 MG/ 0.5 ML SYRINGE (J1170 PER 1) IV PRN (10:00)
[2019-07-21] MEDS ORDERED: ONDANSETRON 4MG/2ML VIAL (J2405) IV PRN (10:00)
[2019-07-21] MEDS ORDERED: ONDANSETRON 4MG/2ML VIAL (J2405) As Ordered ONE (10:26)
--- NOTE | 2019-07-21 11:30 | REP ---
Left foot: Three views. History: Postop. Comparison left foot radiographs are from January 02, 2015. Findings: The patient is status post proximal phalangeal osteotomy of the great toe with two metallic screws in place. There are metallic pins transfixing the DIP and PIP joints of the second third and fourth digits as well. There is diffuse osteoporosis. A plantar calcaneal spur is noted. Electronically Signed by Thomas Beauchamp MD 07/21/2019 10:25 A
[2019-07-21] MEDS ORDERED: PERCOCET 5MG/325MG TAB As Ordered ONE (11:39)
[2019-07-21 14:00] VITALS: BP 142/66
--- NOTE | 2019-07-23 13:41 | RO ---
DATE OF PROCEDURE: 07/21/2019 PREPROCEDURE DIAGNOSES: 1. Hallux valgus with metatarsus primus varus deformity, left foot. 2. Mallet toe deformity second toe, left foot. 3. Hammertoe deformity, third toe, left foot. 4. Hammertoe deformity, fourth toe, left foot. 5. Hammertoe deformity, fifth toe, left foot. PREPROCEDURE DIAGNOSES: 1. Hallux valgus with metatarsus primus varus deformity, left foot. 2. Mallet toe deformity second toe, left foot. 3. Hammertoe deformity, third toe, left foot. 4. Hammertoe deformity, fourth toe, left foot. 5. Hammertoe deformity, fifth toe, left foot. PROCEDURE: 1. Mainor bunionectomy with internal screw fixation, 3.0 mm x 20 mm times one with a 2.5 x 18 mm times one of the left foot. 2. Distal interphalangeal joint arthroplasty with external wire fixation, 0.045 times one, second toe, left foot. 3. Proximal interphalangeal joint arthroplasty with external wire fixation, 0.045 times one, third toe, left foot. 4. Proximal interphalangeal joint arthroplasty with external wire fixation, 0.045 times one, fourth toe, left foot. 5. Proximal interphalangeal joint arthroplasty fifth toe, left foot. SURGEON: Dr. Damir Mccallum DPM [facility] WORKER: None. ANESTHESIA: Local monitored anesthesia care (MAC) IRRIGATION: Dilute bacitracin, neomycin, and polymyxin B solution. HEMOSTASIS: Ankle pneumatic tourniquet at 200 mm of mercury for 86 minutes. DESCRIPTION OF PROCEDURE: On 07/21/2019, this 74-year-old white female was taken from her hospital room to the operating room and placed on the operating table in supine position. Following the induction if intravenous (IV) sedation and local and regional anesthesia, the left lower extremity was prepped and draped in the usual aseptic manner. Attention was directed to the patient's left foot where an incision was made proximal to the metatarsophalangeal joint to just proximal to the interphalangeal joint, left foot. The incision was deepened through subcutaneous tissue, and all coursing venous tributaries were identified, underscored, clamped, cut, ligated, and electrocoagulated as necessary. A linear capsulotomy was then performed in the same plane as the original skin incision. The capsular and periosteal structures were then dissected free in one continuous layer, dorsally, medially, and laterally, thus creating a capsular-periosteal type envelope. This delivered into view the hypertrophied medial eminence of the first metatarsal, which was osteotomized from distal to proximal through and through exiting medial to the sesamoidal groove. Attention was then directed to proximal phalanx where a wedge shaped osteotomy was performed of the proximal phalanx, orientated with the base on the distal medial orientation. After creating the wedge of bone measuring approximately 4 to 5 mm in width, the proximal phalanx was reduced with a termite clamp and a 3.0 x 20 mm headless screw was inserted. The bone was soft and therefore it was elected to augment this fixation with an additional screw coming from a lateral to medial orientation. With these two screws, the osteotomy was noticed to be stable in all three cardinal planes. The wound was flushed with copious amounts of dilute bacitracin, neomycin, and polymyxin B solution. Attention was directed toward closure, where the capsular structures were coapted and maintained using #2-0 Monocryl in a simple interrupted type fashion. Subcutaneous tissues were coapted and maintained using #4-0 Monocryl in a simple interrupted type fashion. Skin incisions were coapted and maintained using #4-0 Prolene in a simple, interrupted type fashion. Attention was then directed to the second toe where there was noted to be a mallet toe deformity and the following procedure was perfromed: DISTAL INTERPHALANGEAL JOINT ARTHROPLASTY WITH EXTERNAL WIRE FIXATION, 0.045 TIMES ONE, SECOND TOE, LEFT FOOT: Attention was directed to the patients second toe of the left foot where there is noted to be a mallet toe deformity. At this time, two transverse semi elliptical incisions were placed over the distal interphalangeal joint of the second toe and a wedge piece of skin was removed. A tenotomy and capsulotomy was performed at the distal interphalangeal joint and the extensor tendon was released proximally. Medial, lateral and collateral ligaments were dissected free from the head of the middle phalanx and utilizing a power saw an osteotomy was performed of the middle phalanx from dorsal to plantar, through and through and this was extirpated from the wound. The wound was flushed with copious amounts of dilute bacitracin, neomycin, and polymyxin B solution. Utilizing a 0.045 wire, the wire was driven through the distal phalanx and then retrograde into the middle and proximal phalanx. The wire was bent and a protective ball placed on the distal end. The wound was flushed with copious amounts of dilute bacitracin, neomycin, and polymyxin B solution. Attention was directed towards closure where the extensor tendon was coapted and maintained with four stranded Melissa stitch. The skin was coapted and maintained using #4-0 Prolene in a simple interrupted type fashion. Attention was directed to the patients third toe of the left foot where the following procedure was performed: PROXIMAL INTERPHALANGEAL JOINT ARTHROPLASTY WITH EXTERNAL WIRE FIXATION, 0.045 TIMES ONE, THIRD TOE, LEFT FOOT: Attention was directed to the patient's third toe where a linear incision was placed over the proximal interphalangeal joint measuring approximately 2 cm in length. The incision was deepened through the subcutaneous tissues and all coursing venous tributaries were identified, underscored, clamped, cut, ligated, and electrocoagulated as necessary. A transverse tenotomy and capsulotomy was performed at the level of the proximal interphalangeal joint and the extensor tendon was released and the extensor tendon was held in a proximal direction. The medial, lateral and collateral ligaments were sharply dissected free from the head of the proximal phalanx. Utilizing a power saw, an osteotomy was performed through the anatomical neck of the proximal phalanx from dorsal to plantar, through and through. K wire was then driven through the middle and distal phalanxes and retrograded into the proximal phalanx utilizing fluoroscopy for guidance. The wire was cut. The protective cap was in place. The wound was flushed with copious amounts of dilute bacitracin, neomycin, and polymyxin B solution. The extensor tendon was coapted and maintained using a 4-0 super mid stitch in a four stranded Melissa repair. The skin was coapted and maintained using #4-0 Prolene in a simple interrupted type fashion. Attention was directed to the patients fourth toe of the left foot where the following procedure was performed: PROXIMAL INTERPHALANGEAL JOINT ARTHROPLASTY WITH EXTERNAL WIRE FIXATION, 0.045 TIMES ONE, FOURTH TOE, LEFT FOOT: Attention was directed to the patient's fourth toe of the left foot where the procedure performed on the third toe was now performed on the fourth toe without variation or deletion. Attention was directed to the patients fifth toe of the left foot where the following procedure was performed: PROXIMAL INTERPHALANGEAL JOINT ARTHROPLASTY WITH EXTERNAL WIRE FIXATION, 0.045 TIMES ONE, FIFTH TOE, LEFT FOOT: Attention was directed to the patient's hao toe of the left foot where there was noted to be a hammertoe deformity. At this time, the procedure performed on the third toe was now performed on the fifth toe with the following variation: No external wire was utilized to stabilize the proximal interphalangeal joint. Attention was directed towards bandaging where a sterile, compressive bandage was applied consisting of Adaptic, 4 x 4s, 4 x 4 splints, Yolie, Kerlix, and Coban. Ankle pneumatic tourniquet was rapidly deflated. Instantaneous capillary refill time was noted in digits 1 through 5 of the patients left foot. The patient having apparently tolerated the surgical procedure well, was taken from the operating room to the recovery room, vital signs stable, patient afebrile. Further monitoring by the anesthesia department.
== END 2019-07-21 14:15 | disposition home or self-care (01) ==
LOC: M SDC 05:34
PROVIDERS: ATTEND Podiatrist
DX: M20.12 Hallux valgus (acquired), left foot (principal); M20.42 Other hammer toe(s) (acquired), left foot; M20.5X2 Other deformities of toe(s) (acquired), left foot; M79.675 Pain in left toe(s); B35.1 Tinea unguium; R94.39 Abnormal result of other cardiovascular function study; J44.9 Chronic obstructive pulmonary disease, unspecified; J32.9 Chronic sinusitis, unspecified; E11.51 Type 2 diabetes mellitus with diabetic peripheral angiopathy without gangrene; E11.42 Type 2 diabetes mellitus with diabetic polyneuropathy; E78.5 Hyperlipidemia, unspecified; K21.9 Gastro-esophageal reflux disease without esophagitis; G47.00 Insomnia, unspecified; N18.9 Chronic kidney disease, unspecified; M54.2 Cervicalgia; F17.210 Nicotine dependence, cigarettes, uncomplicated; Z88.5 Allergy status to narcotic agent; Z88.8 Allergy status to other drugs, medicaments and biological substances; Z88.0 Allergy status to penicillin; Z88.6 Allergy status to analgesic agent; Z88.1 Allergy status to other antibiotic agents; Z88.2 Allergy status to sulfonamides; Z91.041 Radiographic dye allergy status; Z79.899 Other long term (current) drug therapy; Z79.02 Long term (current) use of antithrombotics/antiplatelets; Z79.51 Long term (current) use of inhaled steroids; Z79.891 Long term (current) use of opiate analgesic; Z86.19 Personal history of other infectious and parasitic diseases; Z86.14 Personal history of Methicillin resistant Staphylococcus aureus infection
CPT/HCPCS: 28285; 28298; 73630; 88300; C1713; J1100; J2250; J2405; J2795; J3010; J3370

== ENCOUNTER → 2019-09-21 | Outpatient (REF) | payer MEDICARE, MEDICAID ==
[~2019-09-21] MED LIST changes: +FENT12DI8 TD; -MONT10TA2 PO; +MONT10TA4 PO
[2019-09-21 18:07] LABS: RBC, URINE AUTO TNTC /HPF (0-3); WBC, URINE AUTO 3 /HPF (0-3)
[2019-09-21 18:08] LABS: BACTERIA, URINE AUTO 1+ (NEGATIVE)
== END ==
LOC: M SMT 17:11
PROVIDERS: ATTEND Urology
DX: Z93.59 Other cystostomy status (principal)

== ENCOUNTER → 2019-11-16 | Outpatient (REF) | payer MEDICARE, MEDICAID | LOC: M SMT 18:04 | PROVIDERS: ATTEND Nurse Practitioner Family | DX: R10.9 Unspecified abdominal pain (principal) ==

== ENCOUNTER → 2019-12-27 | Outpatient (CLI) | payer MEDICARE, MEDICAID ==
[~2019-12-27] MED LIST changes: +BENA25CA4 PO; +CLON0.2D6 TOP; +DIPH50CA PO; +GABA600T4 PO; +HYDR-3715 PO; -LISI-542 PO; +LISI-898 PO; +LISI2.5T2 PO; +MIRT-60 PO; +MOM30SS2 PO; +MONT10TA10 PO; -MONT10TA4 PO; +MYRB50TA PO; +ONDA4TAB6 PO; +OXYB-54 PO; +OXYB10TA23 PO; +PANT-23 PO; +PROAAER10 INH; +SIME80CH5 PO; +SULF1TAB93 PO; +VARE1TA PO; +[UNRECOGNIZED DRUG - SUPPLY] TOP
== END ==
LOC: M LABSMTC 13:03
PROVIDERS: ATTEND Family Medicine
DX: Z11.59 Encounter for screening for other viral diseases (principal); Z03.818 Encounter for observation for suspected exposure to other biological agents ruled out
CPT/HCPCS: C9803; U0003

== ENCOUNTER → 2020-01-04 | Outpatient (REF) | payer MEDICARE, MEDICAID ==
[~2020-01-04] MED LIST changes: -BENA25CA4 PO; -CLON0.2D6 TOP; -DIPH50CA PO; -GABA600T4 PO; -HYDR-3715 PO; +LISI-542 PO; -LISI-898 PO; -LISI2.5T2 PO; -MIRT-60 PO; -MOM30SS2 PO; -MONT10TA10 PO; +MONT10TA4 PO; -MYRB50TA PO; -ONDA4TAB6 PO; -OXYB-54 PO; -OXYB10TA23 PO; -PANT-23 PO; -PROAAER10 INH; -SIME80CH5 PO; -SULF1TAB93 PO; -VARE1TA PO; -[UNRECOGNIZED DRUG - SUPPLY] TOP
[2020-01-04 18:04] LABS: ALBUMIN 3.6 GM/DL (3.2-5.2); ALT/SGPT 21 U/L (12-78); BASO % 0.5 % (0.0-1.0); BILIRUBIN,TOTAL 0.5 MG/DL (0.2-1.0); BLOOD UREA NITROGEN 14 MG/DL (7-18); CALCIUM LEVEL 9.3 MG/DL (8.8-10.2); CARBON DIOXIDE LEVEL 29 MEQ/L (21-32); CHLORIDE LEVEL 101 MEQ/L (98-107); CREATININE FOR GFR 0.92 MG/DL (0.55-1.30); EOS # 0.1 10^3/uL (0.0-0.5); EOS % 3.1 % (0.0-3.0); GLOMERULAR FILTRATION RATE > 60.0 (>39); GLUCOSE, FASTING 140 MG/DL (70-100); HEMATOCRIT 37.2 % (36.0-47.0); HEMOGLOBIN 12.7 g/dl (12.0-15.5); LYMPH # 1.9 10^3/uL (1.5-5.0); LYMPH % 45.2 % (24.0-44.0); MEAN CORPUSCULAR HEMOGLOBIN 30.3 pg (27.0-33.0); MEAN CORPUSCULAR HGB CONC 34.1 g/dl (32.0-36.5); MEAN CORPUSCULAR VOLUME 88.8 fl (80.0-96.0); MONO # 0.8 10^3/uL (0.0-0.8); MONO % 18.3 % (0.0-5.0); NEUTROPHILS # 1.4 10^3/uL (1.5-8.5); NEUTROPHILS % 32.4 % (36.0-66.0); PLATELET COUNT, AUTOMATED 169 10^3/uL (150-450); POTASSIUM SERUM 4.5 MEQ/L (3.5-5.1); RED BLOOD COUNT 4.19 10^6/uL (4.00-5.40); SODIUM LEVEL 138 MEQ/L (136-145); TOTAL PROTEIN 7.3 GM/DL (6.4-8.2); WHITE BLOOD COUNT 4.2 10^3/uL (4.0-10.0)
[2020-01-04 18:47] LABS: HEMOGLOBIN A1c 6.9 %
== END ==
LOC: M SFHCADAM 12:00
PROVIDERS: ATTEND Physician Assistant
DX: E11.9 Type 2 diabetes mellitus without complications (principal); I11.9 Hypertensive heart disease without heart failure
CPT/HCPCS: 80053; 83036; 85025; G0463

== ENCOUNTER → 2020-03-06 | Outpatient (CLI) | payer MEDICARE, MEDICAID ==
[~2020-03-06] MED LIST changes: +BENA25CA4 PO; +CLON0.2D6 TOP; +DIPH50CA PO; +GABA600T4 PO; +HYDR-3715 PO; +LISI2.5T2 PO; +MOM30SS2 PO; +ONDA4TAB6 PO; +OXYB10TA23 PO; +PROAAER10 INH; +REME30TA PO; +SIME80TA PO; +VARE1TA PO; +[UNRECOGNIZED DRUG - SUPPLY] TOP
--- NOTE | 2020-03-13 19:11 | REP ---
CT CHEST WITHOUT CONTRAST: LOW-DOSE SCREENING EXAM HISTORY: Lung cancer screening. COMPARISON: Chest CT study 04/28/2016. FINDINGS: There is fibroatelectatic change in the lower lobes bilaterally, which is more prominent than on the 2016 prior study. There is peribronchial cuffing in the lower lobe bronchi bilaterally, question bronchitis. No endobronchial abnormality is appreciated. Vascular calcification is noted. The nodular density described previously on the 2016 study in the right lower lobe is not seen today. There is a new pleural-based 3.6 mm nodular opacity in the left lower lobe on Page 67 of 118 in Series 201 of todays study. This does not appear to be calcified. There are mild emphysematous changes in the upper lobes. The study is otherwise unremarkable. IMPRESSION: Lung-RADS Category 2 findings. Repeat screening study suggested in one year. MTDD
== END ==
LOC: M RAD 12:56
PROVIDERS: ATTEND Physician Assistant
DX: Z12.2 Encounter for screening for malignant neoplasm of respiratory organs (principal); F17.211 Nicotine dependence, cigarettes, in remission; J84.10 Pulmonary fibrosis, unspecified; J43.9 Emphysema, unspecified; R91.1 Solitary pulmonary nodule

== ENCOUNTER → 2020-03-08 | Outpatient (REF) | payer MEDICARE, MEDICAID ==
[2020-03-08 19:37] LABS: HEMOGLOBIN 12.5 g/dl (12.0-15.5); MEAN CORPUSCULAR HEMOGLOBIN 31.5 pg (27.0-33.0); MEAN CORPUSCULAR HGB CONC 34.7 g/dl (32.0-36.5); MEAN CORPUSCULAR VOLUME 90.7 fl (80.0-96.0); PLATELET COUNT, AUTOMATED 161 10^3/uL (150-450); RED BLOOD COUNT 3.97 10^6/uL (4.00-5.40); WHITE BLOOD COUNT 4.1 10^3/uL (4.0-10.0)
[2020-03-08 20:01] LABS: ALBUMIN 3.6 GM/DL (3.2-5.2); ALT/SGPT 24 U/L (12-78); BILIRUBIN,TOTAL 0.6 MG/DL (0.2-1.0); BLOOD UREA NITROGEN 12 MG/DL (7-18); CALCIUM LEVEL 8.9 MG/DL (8.8-10.2); CARBON DIOXIDE LEVEL 30 MEQ/L (21-32); CHLORIDE LEVEL 100 MEQ/L (98-107); CREATININE FOR GFR 0.92 MG/DL (0.55-1.30); GLOMERULAR FILTRATION RATE > 60.0 (>39); GLUCOSE, FASTING 115 MG/DL (70-100); POTASSIUM SERUM 4.1 MEQ/L (3.5-5.1); SODIUM LEVEL 136 MEQ/L (136-145); TOTAL PROTEIN 7.2 GM/DL (6.4-8.2)
== END ==
LOC: M LABDRWAD 17:39
PROVIDERS: ATTEND Physician Assistant
DX: E11.9 Type 2 diabetes mellitus without complications (principal)
CPT/HCPCS: 36415; 80053; 85027; 93005; G0463

== ENCOUNTER → 2020-03-10 | Outpatient (CLI) | payer MEDICARE, MEDICAID | LOC: M LABSMTC 11:43 | PROVIDERS: ATTEND Anesthesiology | DX: Z01.812 Encounter for preprocedural laboratory examination (principal); Z20.828 Contact with and (suspected) exposure to other viral communicable diseases | CPT/HCPCS: C9803; U0003 ==

== ENCOUNTER 2020-03-15 07:47 | Day surgery (SDC) | payer MEDICARE, MEDICAID ==
--- NOTE | 2020-03-11 10:16 | HPE ---
DATE OF ANTICIPATED ADMISSION: 03/15/2020 Pre[address] clearance note for Dr. Mccallum. Patient will be undergoing bunion and hammertoe correction on her right foot under local anesthesia with monitored anesthesia care (MAC). Patient has no complaints today. She denies any recent illnesses. No fever, no chills, no shortness of breath. She has a mild chronic smoker's cough, unchanged from baseline. She denies any nausea, vomiting, abdominal pain, or diarrhea. She has a history of a suprapubic catheter in place. This was changed yesterday. She had some bleeding after the suprapubic catheter change, which is to be expected, and has resolved. No abdominal pain. She has a colostomy which is functioning normally with no bleeding. PAST MEDICAL HISTORY: Significant for: 1. Smoking-induced chronic obstructive pulmonary disease (COPD). She has oxygen 2 liters nasal cannula as needed. 2. Nicotine dependence. She continues to smoke small amount each day. 3. History of hepatitis C from a tattoo estimated around 1989. 4. She had liver biopsy in 1999, showing stage II fibrosis. She had a followup showing possibly stage III with possible cirrhosis, treated with Epclusa for 12 weeks in April 2017. 5. History of hypertension. 6. Hyperlipidemia. 7. Gastroesophageal reflux disease. 8. Insomnia. 9. Depression. 10. History of complete bowel resection due to colon blockage. 11. 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 12. Osteoporosis. 13. Chronic kidney disease, followed by nephrology. 14. History of pancytopenia. 15. Fatty liver. 16. Recurrent urinary tract infections (UTIs) secondary to fistula. 17. Chronic pain from arthritis, managed by pain specialist in [place], on a chronic fentanyl patch. 18. Peripheral neuropathy. 19. Urinary retention with suprapubic catheter since 2017. 10. Diabetes mellitus, type 2. 11. Chronic back pain and hip pain. PAST SURGICAL HISTORY: 1. Bilateral mastectomies secondary to fibrocystic disease. 2. Cholecystectomy. 3. section times two. 4. Ovarian wedge resection. 5. Dilatation and curettages. 6. A colostomy with multiple surgeries for colostomy revisions, followed by Dr. Barr. 7. She has had partial large intestine and small intestine resections related to blockages and fistula. 8. Appendectomy. 9. Hysterectomy with bilateral salpingo-oophorectomy (BSO). 10. Left hip replacement. 11. She has had an esophagogastroduodenoscopy (EGD) and colonoscopy in [address] Barr, showing diffuse and severe inflammation of the rectum. 12. Pericolostomy hernia repair in July 2017. 13. Suprapubic placement August 2018. 14. Hernia surgery in January 2019. FAMILY HISTORY: Family at 50 years old of cerebral hemorrhage. He had bilateral diabetes and bilateral amputation. Mother at 90 years old of an unknown type of cancer. Her son is diabetic. SOCIAL HISTORY: She continues to smoke on occasion but uses Chantix to essentially remain cigarette free since 2016. She does not drink alcohol. She lives with her son. She uses a scooter. MEDICATIONS: - oxygen 2 liters nasal cannula as needed - citalopram 40 mg daily - Ensure twice a day - Neurontin 600 mg three times a day - Zofran 4 mg daily as needed for nausea - meclizine 25 mg daily as needed for vertigo - She is on a fentanyl patch 12.5 mcg every 72 hours. - clopidogrel 75 mg daily - simvastatin 20 mg daily - Advair 500/50 mcg one puff twice a day - hydrocodone 10/325 one tablet twice a day as needed - Colace 100 mg twice a day - oxybutynin 10 mg extended release twice a day - methenamine hippurate 1 gram twice a day - omeprazole 20 mg two capsules daily - iron sulfate 325 mg daily - Spiriva Handi-Haler 18 mcg daily - Remeron 30 mg at bedtime daily - Singulair 10 mg daily - Amaryl 2 mg every morning - carvedilol 3.125 mg twice a day - lisinopril 2.5 mg daily - Chantix 1 mg twice a day - folic acid 1 mg twice a day - trazodone 100 mg two tablets daily ALLERGIES: BACTRIM DS causes itching. ASPIRIN causes tunnel vision. PENICILLIN causes hives. IV DYE causes itching. AMITRIPTYLINE causes anaphylaxis. MORPHINE IN TABLET FORM, her eyes will swell shut. REVIEW OF SYSTEMS: GENERAL: She denies any unexplained weight loss, weight gain, fever, or chills. HEENT: No headache, sore throat, ear pain. CARDIAC: No chest pain or palpitations. PULMONARY: No shortness of breath or change in her breathing. Oxygen saturations have been at baseline. GASTROINTESTINAL: No heartburn or abdominal pain. GENITOURINARY: As above. MUSCULOSKELETAL: She does have chronic pain, unchanged. PHYSICAL EXAMINATION: Blood pressure 122/70, pulse 97, respirations 18, temperature 97.5, oxygen saturation 96% on room air, weight 180 pounds. GENERAL: She is bright, alert, in no apparent distress. SKIN: Warm, dry with good turgor and good color. HEENT: Throat is clear without exudates. Neck is supple without lymphadenopathy, carotid bruits, or jugular venous distention (JVD). LUNGS: Clear to auscultation bilaterally without wheezes, rales, or rhonchi. ABDOMEN: Soft. She has multiple scars from previous surgeries. Colostomy is in place with brown stool. Suprapubic catheter is present. EXTREMITIES: No clubbing, cyanosis, or edema. ASSESSMENT AND PLAN: 1. Preoperative clearance. Patient is medically optimized for proposed surgical procedure. Medications will be held as per surgery and anesthesia's recommendations. She held her clopidogrel as of March 07. She is instructed to continue her fentanyl patch and take a hydrocodone on the morning of the procedure if needed. These were instructions that were given to her in her preoperative phone call, and therefore it should be made aware that she is on a fentanyl patch going into surgery. She will be taking her Advair, Spiriva, omeprazole, and carvedilol on the morning of the procedure. All other medications will be held. Labs have been ordered for today. They included a complete blood count (CBC) and a comprehensive metabolic profile (CMP). These are pending at the time of this dictation. She had an EKG done in our office today, showing normal sinus rhythm with 92 beats per minute with Q waves in anteroseptal leads. I have no old EKG images for comparison due to the computers at [facility] being down, and those tracings are inaccessible; however, I do have a report from an EKG done on 06/30/2019 that shows sinus rhythm with normal tracing. Previous EKG from 04/08/2016 describes a septal infarct, probably old. There were no acute abnormalities in her EKG in the office today. 2. Chronic obstructive pulmonary disease (COPD). She does use oxygen periodically. Her oxygen saturations are 96% on room air here today. Oxygen levels should be monitored closely. She should remain on her usual inhalers and you may consider using albuterol preoperatively, as she does typically require this twice a day at baseline. 3. Chronic pain with chronic narcotic use. Again, be aware the patient is on a fentanyl patch at a low dose of 12.5 mcg every 72 hours and will remain on this patch going into surgery and was instructed with her preadmission testing (PAT) to take a hydrocodone, which is a 10 mg hydrocodone, on the morning of the procedure. 4. Diabetes mellitus, type 2. This has been well controlled. A1c is 6.9 as of the end of December 2019. She is on Amaryl usually, and this will be held on the morning of the procedure. Her healing may be affected by her diabetes; however, her A1c is well controlled. 5. Chronic kidney disease, stage III. Her renal function as of the end december was quite normal and has been normal for awhile. She has had some tendency toward elevated creatinines in the past. Labs for today are pending. Avoidance of nephrotoxic medications would be recommended, including anti-inflammatories. MTDD
[~2020-03-15] VITALS: Ht 177.8 cm; Wt 74.8 kg
[~2020-03-15 07:47] MED LIST changes: -BENA25CA4 PO; -CLON0.2D6 TOP; -GABA600T4 PO; -HYDR-3715 PO; +LIDOCAINE 1% MDV 20ML VIAL SQ PRN; -LISI2.5T2 PO; +LR 1,000 ML IV ONE; -MOM30SS2 PO; -ONDA4TAB6 PO; -OXYB10TA23 PO; -PROAAER10 INH; -REME30TA PO; -SIME80TA PO; +VANCOMYCIN HCL 1,000 MG, VIAL MATE ADAPTER 1 EACH in D5W 250 ML IV ONE; -VARE1TA PO; -[UNRECOGNIZED DRUG - SUPPLY] TOP
[2020-03-15] MEDS ORDERED: MIDAZOLAM INJ 2MG/2ML VIAL (J2250 PER 1MG) As Ordered ONE (09:08)
[2020-03-15] MEDS ORDERED: fentaNYL 100 MCG/2 ML INJECTION (J3010) As Ordered ONE (09:09)
[2020-03-15] MEDS ORDERED: LIDOCAINE 2% MDV 20ML VIAL As Ordered ONE (09:32)
[2020-03-15] MEDS ORDERED: dexameTHASONE 4 MG/ML 1ML VIAL (J1100 PER 1MG) As Ordered ONE (09:32)
[2020-03-15] MEDS ORDERED: BACITRACIN PWD 50,000 UNITS VIAL As Ordered ONE (09:33)
[2020-03-15] MEDS ORDERED: BUPIVACAINE HCL 0.5% 30 ML VIAL As Ordered ONE (09:33)
[2020-03-15] MEDS ORDERED: NEOSPORIN GU IRRIG 20 ML VIAL As Ordered ONE (09:33)
[2020-03-15] MEDS ORDERED: propofoL 200 MG/20 ML VIAL As Ordered ONE (10:06)
[2020-03-15] MEDS ORDERED: METOCLOPRAMIDE INJ 10MG/2ML VIAL (J2765 PER 1) As Ordered ONE (10:15)
[2020-03-15] MEDS ORDERED: LIDOCAINE 2% 100MG/5ML SDV (FOR ANES.) As Ordered ONE (10:15)
[2020-03-15 14:00] VITALS: BP 123/59
[2020-03-15] MEDS ORDERED: NORCO, ANEXSIA 5/325MG TABLET (HYDROcodone/ACETAMINOPHEN) As Ordered ONE (15:24)
[2020-03-15] MEDS ORDERED: NORCO, ANEXSIA 5/325MG TABLET (HYDROcodone/ACETAMINOPHEN) PO ONE (15:30)
--- NOTE | 2020-04-04 15:31 | RO ---
DATE OF OPERATION: 03/15/2020 PREOPERATIVE DIAGNOSES: 1. Hallux valgus metatarsus primus varus deformity, right foot. 2. Hammertoe deformity, 2nd, 3rd, 4th, and 5th toes, right foot. POSTOPERATIVE DIAGNOSES: 1. Hallux valgus metatarsus primus varus deformity, right foot. 2. Hammertoe deformity, 2nd, 3rd, 4th, and 5th toes, right foot. PROCEDURES: Jason bunionectomy with Herve osteotomy and internal screw fixation, right foot. Proximal interphalangeal joint arthroplasty with external wire fixation, 2nd toe, right foot. Proximal interphalangeal joint arthroplasty with external wire fixation, 3rd toe, right foot. Proximal interphalangeal joint arthroplasty with external wire fixation, 4th toe, right foot. Proximal interphalangeal joint arthroplasty, 5th toe, right foot. Dorsal capsulotomy, 2nd metatarsophalangeal joint, right foot. Dorsal capsulotomy, 3rd metatarsophalangeal joint, right foot. Dorsal capsulotomy, 4th metatarsophalangeal joint, right foot. Dorsal capsulotomy, 5th metatarsophalangeal joint, right foot. SURGEON: Damir Mccallum DPM [employer] ADMINISTRATOR: None. ANESTHESIA: Local monitored anesthesia care (MAC). IRRIGATION: Dilute bacitracin, neomycin, and polymyxin B solution. HARDWARE UTILIZED: An Arthrex headless 3.0 x 20 mm times one, 3.0 x 22 mm times one, a 2.5 x 8 mm times one, and 0.45 wires times three. HEMOSTASIS: Ankle pneumatic tourniquet at 200 mm of mercury for 111 minutes. DESCRIPTION OF OPERATION: On 03/15/2020, this 75-year-old white female was taken from her hospital room to the operating room and placed on the operating table in the supine position. Following the induction of intravenous (IV) sedation and local and regional anesthesia, right lower extremity was prepped and draped in the usual aseptic manner. Attention was directed to the patient's right foot, where the following procedure was performed: JASON BUNIONECTOMY AND HERVE OSTEOTOMY (DOUBLE OSTEOTOMY, BUNIONECTOMY) WITH INTERNAL SCREW FIXATION, RIGHT FOOT: Attention was directed to the patient's right foot. There was noted to be a hallux valgus deformity of the right foot. At this time, a 10 cm incision was placed over the 1st metatarsophalangeal joint, extending to the distal interphalangeal joint medial to the extensor tendon. The incision was deepened through subcutaneous tissues, and all coursing venous tributaries were identified, underscored, clamped, cut, ligated, and electrocoagulated as necessary. A linear capsulotomy was performed in the same plane as the original skin incision, and capsule and periosteal structures were then dissected free in one continuous layer, dorsally, medially, and laterally, thus creating a capsular periosteal-type enveloped. The hypertrophied medial eminence was then osteotomized from dorsal to proximal through and through. Attention was directed to the 1st intermetatarsal space, where the conjoined tendon was sharply dissected from the fibular sesamoid. Attention was directed to the medial surface of the 1st metatarsal, where a V-shaped osteotomy was performed. Capital fragment was transposed approximately 30% of the width of the shaft of the 1st metatarsal and fixated with a 3.0 x 22 mm headless compression screw. The redundant cortical spike was osteotomized from dorsal to plantar through and through, and the medial surface was rasped to a smooth contour. The wound was flushed with copious amounts of dilute bacitracin, neomycin, and polymyxin B solution. Attention was then directed to the proximal phalanx, where the following procedure was performed. HERVE OSTEOTOMY WITH INTERNAL SCREW FIXATION, 3.0 X 20 MM TIMES ONE AND A 2.4 X 8 MM TIMES ONE, RIGHT FOOT: Attention was directed to the proximal phalanx, where a wedge-shaped osteotomy was created with the base in a distal and medial orientation. Approximately a 5 mm wedge of bone was removed. The hallux was rotated in a straight position, and utilizing a headless compression screw a 3.0 x 20 mm screw was inserted across the osteotomy. For additional support, a more perpendicular screw was placed, measuring 2.4 x 8 mm. The osteotomy was noted to be stable in all three cardinal planes. The wound was flushed with copious amounts of dilute bacitracin, neomycin, and polymyxin B solution. Attention was directed toward closure, where the capsular structures were coapted and maintained utilizing 2-0 Monocryl in a simple interrupted-type fashion. Subcutaneous tissues were coapted and maintained using 4-0 Monocryl in a simple interrupted-type fashion. Skin incisions were coapted and maintained utilizing 4-0 Prolene in a simple interrupted-type fashion. Attention was then directed to the 2nd toe, where the following procedure was performed. PROXIMAL INTERPHALANGEAL JOINT ARTHROPLASTY WITH EXTENSOR TENDON LENGTHENING, 2ND TOE, RIGHT FOOT: Attention was directed to the patient's 2nd toe, where a 2.5 cm incision was placed over the proximal interphalangeal joint. The incision was deepened, and all coursing venous tributaries were electrocoagulated. A Z-plasty tendon lengthening was then performed of the tendon at the proximal interphalangeal joint. The collateral ligaments were sharply dissected free from the proximal interphalangeal joint. Utilizing a power saw an osteotomy was performed at the anatomical neck of the proximal phalanx from dorsal to plantar through and through. A K wire was then driven through the middle and distal phalanges and retrograded into the proximal phalanx utilizing C-arm imagery. The wire was bent and cut. The wound was flushed with copious amounts of dilute bacitracin, neomycin, and polymyxin B solution. There was still noted to be a dorsal contracture at the 2nd metatarsophalangeal joint, and the following procedure was performed. PROXIMAL INTERPHALANGEAL JOINT CAPSULOTOMY, 2ND METATARSOPHALANGEAL JOINT, RIGHT FOOT: Attention was directed to the patient's 2nd metatarsophalangeal joint, where a stab incision was placed dorsally over the metatarsophalangeal joint, and a dorsal capsulotomy was performed, releasing the dorsal contracture. This was repaired with 4-0 Prolene in a simple interrupted-type fashion. Attention was directed to the 2nd toe, where this was repaired of the extensor tendon with a 4-0 Supramid suture and a 4-stranded Melissa repair. The skin was concentration and memory utilizing 4-0 Prolene in a simple interrupted and horizontal mattress type fashion. Attention was then directed to the 3rd toe of the right foot, where the following procedure was performed: PROXIMAL INTERPHALANGEAL JOINT ARTHROPLASTY WITH EXTERNAL WIRE FIXATION, 0.045 TIMES ONE, 3RD TOE, RIGHT FOOT: Attention was directed to the patient's 3rd toe of the right foot. There was noted to be a hammertoe deformity. At this time, the procedure performed on the 2nd toe was now performed on the 3rd toe without variation or deletion, the only exception being that of anatomical location. Attention was then directed to the 3rd metatarsophalangeal joint, where the following procedure was performed. DORSAL CAPSULOTOMY, 3RD METATARSOPHALANGEAL JOINT, RIGHT FOOT: Attention was directed to the patient's 3rd metatarsophalangeal joint, where there was noted to be a dorsal contracture. At this time, the procedure performed on the 2nd metatarsophalangeal joint was now performed on the 3rd metatarsophalangeal joint without variation or deletion, the only exception being that of anatomical location. Attention was then directed to the 4th toe of the right foot, where the following procedure was performed. PROXIMAL INTERPHALANGEAL JOINT ARTHROPLASTY WITH EXTERNAL WIRE FIXATION, 0.045 TIMES ONE, 4TH TOE, RIGHT FOOT: Attention was directed to the patient's 4th toe of the right foot. There was noted to be a hammertoe deformity. At this time, the procedure performed on the 2nd toe was now performed on the 4th toe without variation or delusion, the only exception being that of anatomical location. Attention was then directed to the 4th metatarsophalangeal joint, where the following procedure was performed. DORSAL CAPSULOTOMY, 4TH METATARSOPHALANGEAL JOINT, RIGHT FOOT: Attention was directed to the patient's 4th metatarsophalangeal joint of the right foot, where the procedure performed on the 2nd metatarsophalangeal joint was now performed on the 4th metatarsophalangeal joint without variation or deletion, the only exception being that of anatomical location. Attention was then directed to the patient's 5th toe of the right foot, where the following procedure was performed. PROXIMAL INTERPHALANGEAL JOINT ARTHROPLASTY, 5TH TOE, RIGHT FOOT: Attention was directed to the patient's 5th toe of the right foot, where the procedure performed on the 2nd toe was now performed on the 5th toe with the following variations. No external wire was used to stabilize the 5th toe. Attention was then directed to the 5th metatarsophalangeal joint, where the following procedure was performed. DORSAL CAPSULOTOMY, 5TH METATARSOPHALANGEAL JOINT, RIGHT FOOT: Attention was directed to the patient's 5th metatarsophalangeal joint of the right foot, where the procedure performed on the 2nd metatarsophalangeal joint was now performed on the 5th metatarsophalangeal joint without variation or deletion, the only exception being that of anatomical location. Attention was then directed toward bandaging, where a sterile compressive bandage was applied, consisting of Adaptic, 4 x 4, 4 x 4 splints, Yolie, Kerlix, and Coban. Ankle pneumatic tourniquet was then rapidly deflated, and instantaneous capillary filling time was noted to digits 1-5 of the patient's right foot. Patient having apparently tolerated the surgical procedure well was taken from the operating room (OR) to the recovery room for further monitoring by the anesthesia department. Postoperative instructions given upon discharge. [facility]
--- NOTE | 2020-04-09 09:03 | REP ---
RIGHT FOOT SERIES CLINICAL: Postoperative baseline. TECHNIQUE: AP, lateral, and oblique views of the right foot. FINDINGS: Postoperative surgery involving the first metatarsal bone and proximal phalanx, as well as surgical procedures involving the second through fourth proximal phalanges noted. Overlying postsurgical soft tissue swelling and subcutaneous emphysema. Satisfactory alignment of the first through fourth toes is appreciated. IMPRESSION: Satisfactory postoperative findings. [facility]
== END 2020-03-15 16:30 | disposition home or self-care (01) ==
LOC: M SDC 07:47
PROVIDERS: ATTEND Podiatrist
DX: M20.11 Hallux valgus (acquired), right foot (principal); M20.41 Other hammer toe(s) (acquired), right foot; I12.9 Hypertensive chronic kidney disease with stage 1 through stage 4 chronic kidney disease, or unspecified chronic kidney disease; E11.9 Type 2 diabetes mellitus without complications; J44.9 Chronic obstructive pulmonary disease, unspecified; G47.00 Insomnia, unspecified; F17.218 Nicotine dependence, cigarettes, with other nicotine-induced disorders; E78.2 Mixed hyperlipidemia; K21.9 Gastro-esophageal reflux disease without esophagitis; F32.9 Major depressive disorder, single episode, unspecified; N18.3 Chronic kidney disease, stage 3 (moderate); K76.0 Fatty (change of) liver, not elsewhere classified; Z88.0 Allergy status to penicillin; Z88.2 Allergy status to sulfonamides; Z88.8 Allergy status to other drugs, medicaments and biological substances; Z91.041 Radiographic dye allergy status
CPT/HCPCS: 28270; 28285; 28296; 28298; 73630; 88304; 88311; C1713; J1100; J2250; J3010; J3370

== ENCOUNTER 2020-03-20 18:07 | Emergency (ER) | payer MEDICARE, MEDICAID ==
[~2020-03-20] VITALS: Ht 177.8 cm; Wt 75.0 kg
[~2020-03-20 18:07] MED LIST changes: -LIDOCAINE 1% MDV 20ML VIAL SQ PRN; -LR 1,000 ML IV ONE; -VANCOMYCIN HCL 1,000 MG, VIAL MATE ADAPTER 1 EACH in D5W 250 ML IV ONE
[2020-03-20 19:32] LABS: BASO % 0.2 % (0.0-1.0); EOS # 0.1 10^3/uL (0.0-0.5); HEMATOCRIT 32.8 % (36.0-47.0); HEMOGLOBIN 11.6 g/dl (12.0-15.5); LYMPH # 1.4 10^3/uL (1.5-5.0); LYMPH % 30.1 % (24.0-44.0); MEAN CORPUSCULAR HEMOGLOBIN 31.1 pg (27.0-33.0); MEAN CORPUSCULAR HGB CONC 35.4 g/dl (32.0-36.5); MEAN CORPUSCULAR VOLUME 87.9 fl (80.0-96.0); MONO # 0.9 10^3/uL (0.0-0.8); MONO % 19.7 % (0.0-5.0); NEUTROPHILS # 2.2 10^3/uL (1.5-8.5); NEUTROPHILS % 47.6 % (36.0-66.0); PLATELET COUNT, AUTOMATED 169 10^3/uL (150-450); RED BLOOD COUNT 3.73 10^6/uL (4.00-5.40); WHITE BLOOD COUNT 4.5 10^3/uL (4.0-10.0)
[2020-03-20 20:04] LABS: ALBUMIN 3.4 GM/DL (3.2-5.2); ALT/SGPT 19 U/L (12-78); BILIRUBIN,DIRECT 0.3 MG/DL (0.0-0.2); BILIRUBIN,TOTAL 0.7 MG/DL (0.2-1.0); BLOOD UREA NITROGEN 13 MG/DL (7-18); CARBON DIOXIDE LEVEL 29 MEQ/L (21-32); CHLORIDE LEVEL 100 MEQ/L (98-107); CREATININE FOR GFR 0.89 MG/DL (0.55-1.30); GLOMERULAR FILTRATION RATE > 60.0 (>39); GLUCOSE, FASTING 177 MG/DL (70-100); LIPASE 111 U/L (73-393); POTASSIUM SERUM 4.1 MEQ/L (3.5-5.1); SODIUM LEVEL 133 MEQ/L (136-145); TOTAL PROTEIN 7.3 GM/DL (6.4-8.2)
[2020-03-20] MEDS ORDERED: METOCLOPRAMIDE INJ 10MG/2ML VIAL (J2765 PER 1) IV ONE (20:15)
[2020-03-20] MEDS ORDERED: NS 1,000 ML IV ONE (20:15)
[2020-03-20] MEDS ORDERED: KETOROLAC 30 MG/ML 1ML VIAL IV ONE (20:15)
[2020-03-20 22:21] VITALS: BP 144/70
[2020-03-20] MEDS ORDERED: BACT800T5 PO (22:30)
[2020-03-20] MEDS ORDERED: ONDANSETRON 4 MG ORAL DISINTEGRATING TAB PO ONE (22:30)
[2020-03-20] MEDS ORDERED: ONDA4TAB6 PO (22:30)
[2020-03-20 22:41] LABS: CK-MB VALUE MASS < 1.0 NG/ML (<3.6); CPK CREATINE PHOSPHOKINASE 25 U/L (26-192); TROPONIN I < 0.02 NG/ML (< 0.10)
[2020-03-21] MEDS ORDERED: GLIM2TAB4 PO (21:23)
[2020-03-21] MEDS ORDERED: BACT800T5 PO (21:23)
[2020-03-21] MEDS ORDERED: GABA600T4 PO (21:23)
[2020-03-21] MEDS ORDERED: CARV3.12 PO (21:23)
[2020-03-21] MEDS ORDERED: OXYB10TA23 PO (21:23)
[2020-03-21] MEDS ORDERED: ADV500INH INH (21:23)
[2020-03-21] MEDS ORDERED: TRAZ-257 PO (21:23)
[2020-03-21] MEDS ORDERED: REME30TA PO (21:23)
[2020-03-21] MEDS ORDERED: BENA25CA4 PO (21:23)
[2020-03-21] MEDS ORDERED: MONT10TA4 PO (21:23)
[2020-03-21] MEDS ORDERED: VARE1TA PO (21:23)
[2020-03-21] MEDS ORDERED: SPIR1CAP INH (21:23)
[2020-03-21] MEDS ORDERED: PROAAER10 INH (21:23)
[2020-03-21] MEDS ORDERED: LISI2.5T2 PO (21:23)
== END 2020-03-20 23:17 | disposition home or self-care (01) ==
LOC: M ED 18:07 → EDSEX 18:07 → EDBD 18:07 → EDUNIT# 18:07 → M ED 23:17
DX: N39.0 Urinary tract infection, site not specified (principal); I10 Essential (primary) hypertension; J45.909 Unspecified asthma, uncomplicated; J44.9 Chronic obstructive pulmonary disease, unspecified; K21.9 Gastro-esophageal reflux disease without esophagitis; B19.20 Unspecified viral hepatitis C without hepatic coma

== ENCOUNTER 2020-03-21 17:40 | Inpatient (IN) | payer MEDICARE, MEDICAID ==
[~2020-03-21] VITALS: Ht 177.8 cm; Wt 77.9 kg
[~2020-03-21 17:40] MED LIST changes: +ONDA4TAB6 PO
[2020-03-21] MEDS ORDERED: NS 1,000 ML IV SCH ×2 (18:32→21:15)
--- NOTE | 2020-03-21 19:25 | REPVR ---
PROCEDURE INFORMATION: Exam: XR Chest, 1 View Exam date and time: 03/21/2020 6:51 PM Age: 75 years old Clinical indication: Chest pain TECHNIQUE: Imaging protocol: XR of the chest Views: 1 view. COMPARISON: CR Abdomen,Flat Upright,PA CHEST 05/23/2019 6:34 PM FINDINGS: Lungs: The lungs appear clear and there is no evidence localized consolidation of lung. Pleural space: There is no evidence of pneumothorax and no evidence of pleural effusion. Heart/Mediastinum: The heart is normal in size and the aorta is tortuous and sclerotic. Bones/joints: There is moderate scoliosis of the thoracic spine convexity to the right. IMPRESSION: Clear appearing lungs. Electronically signed by: Isaías Guerra On 03/21/2020 19:24:53 PM
[2020-03-21] MEDS ORDERED: ONDANSETRON 4MG/2ML VIAL As Ordered ONE (19:36)
[2020-03-21] MEDS ORDERED: ONDANSETRON 4MG/2ML VIAL IV ONE (19:45)
[2020-03-21 19:48] LABS: BASO % 0.4 % (0.0-1.0); EOS # 0.1 10^3/uL (0.0-0.5); EOS % 0.9 % (0.0-3.0); HEMOGLOBIN 12.1 g/dl (12.0-15.5); LYMPH # 1.8 10^3/uL (1.5-5.0); LYMPH % 33.8 % (24.0-44.0); MEAN CORPUSCULAR VOLUME 84.6 fl (80.0-96.0); MONO # 0.9 10^3/uL (0.0-0.8); MONO % 16.2 % (0.0-5.0); NEUTROPHILS # 2.6 10^3/uL (1.5-8.5); NEUTROPHILS % 48.1 % (36.0-66.0); PLATELET COUNT, AUTOMATED 174 10^3/uL (150-450); WHITE BLOOD COUNT 5.3 10^3/uL (4.0-10.0)
[2020-03-21 19:51] LABS: MEAN CORPUSCULAR HGB CONC 36.7 g/dl (32.0-36.5)
[2020-03-21 20:00] LABS: INR 1.1; PROTHROMBIN TIME 14.4 SECONDS (11.8-14.0)
[2020-03-21 20:01] LABS: PARTIAL THROMBOPLASTIN TIME 31.1 SECONDS (25.0-38.4)
--- NOTE | 2020-03-21 20:08 | REPVR ---
PROCEDURE INFORMATION: Exam: CT Abdomen And Pelvis Without Contrast Exam date and time: 03/21/2020 6:32 PM Age: 75 years old Clinical indication: Vomiting; Abdominal pain; Generalized; Additional info: Gen abd pain, vomiting TECHNIQUE: Imaging protocol: Computed tomography of the abdomen and pelvis without contrast. Radiation optimization: All CT scans at this facility use at least one of these dose optimization techniques: automated exposure control; mA and/or kV adjustment per patient size (includes targeted exams where dose is matched to clinical indication); or iterative reconstruction. COMPARISON: CT ABD PELVIS W/O CONTRAST 08/20/2018 4:30 PM FINDINGS: Tubes, catheters and devices: There is a drainage tube at the left pelvis. Lungs: Small areas of atelectasis and pneumonia in both lung bases posterior in location. Heart: The heart is normal in size. Liver: Normal appearing liver. Gallbladder and bile ducts: Surgical clips at the gallbladder fossa and the patient is post cholecystectomy. Pancreas: Normal pancreas. Spleen: Normal appearing spleen. Adrenals: Normal adrenal glands. Kidneys and ureters: 2.5 cm cyst right kidney. No evidence of hydronephrosis. Stomach and bowel: There is severe distension of loops of bowel in the lower abdomen and pelvis. Surgical clips are noted along the margins of loops of bowel with the lumen of many of these loops appearing the abnormally distended with a large amount of secretions and a few air-fluid levels. Distended loops of small bowel in the pelvis demonstrate air-fluid levels with bubbles of air anterior in position/string of pearls appearance. There is a swirled appearance of the lower mesenteric vessels which represents a change from 2019 and this is all suspicious for bowel obstruction. Dilated loop of bowel with fluid in the lower pelvis may be an ileal conduit. Giving oral contrast might be considered and following the oral contrast through the bowel. Intraperitoneal space: There is no evidence of pneumoperitoneum. There is an ostomy site at the right lower quadrant/pelvic junction. There is a prominent hernia at the ostomy site with a loop of bowel extending into this hernia, a 2nd loop of bowel extends into this hernia more inferiorly and this demonstrates some narrowing at this location. There is no evidence of free fluid. Numerous surgical clips noted throughout the abdomen. Vasculature: The aorta is normal in size and there is calcification consistent with atherosclerotic changes. Lymph nodes: Unremarkable. No enlarged lymph nodes. Bladder: It appears that the urinary bladder has been removed. Reproductive: Unremarkable as visualized. Bones/joints: There are degenerative changes of the lower lumbar spine and prominent osteophyte formation. Soft tissues: The hernia is similar in size to the examination of 08/20/2018. IMPRESSION: 1. Right lower quadrant ostomy site with a hernia. 2. Distention of multiple loops of bowel especially in the lower abdomen and pelvis with air-fluid levels and multiple bubbles of air suggesting obstruction. For further verification oral contrast might be considered to follow through the bowel with sequential CTs. 3. Probable removal of the urinary bladder with an ileal conduit that is markedly distended within the pelvis. 4. There is a swirled appearance of the mesenteric vessels and this can be seen with volvulus and obstruction and representing a changes 2019 exam. Electronically signed by: Isaías Guerra On 03/21/2020 20:08:54 PM
--- NOTE | 2020-03-21 20:35 | HPEPDOC ---
[facility] Medical History & Physical Date of Admission Mar 21, 2020 Date of Service: Mar 21, 2020 Attending Physician: Ny Styles MD History and Physical CHIEF COMPLAINT: Abdominal pain, nausea, vomiting HPI: Patient is a 75 y/o F with extensive PMH including recurrent UTI 2/2 to fistula, chronic indwelling suprapubic catheter, COPD, Hx of Hep C, possible cirrhosis, HTN, HLD and other history mentioned below under PMH who came to [facility] ER for 4 days of worsening abdominal pain, n/v. She had recent right foot bunion and hammertoe surgery on 03/15/20 and every since then she has decreased appetite, n/v, worsening abdominal pain (8/10 on pain scale, cramping in character, constant, not relieved with anything, worsened by movement or with vomiting). Patient was seen in the ER 03/20/10 , diagnosed with UTI and discharged home with abx. UCx was sent at that time and results are pending. Today she returns for worsening symptoms. Other associated symptoms include occasional SOB, nonprod uctive cough, chills, lethargy, decreased appetite, decreased PO intake of food and fluid. She has not eaten in 4 days, only taking sips of water. She denies chest pain, fever, sick contacts, recent travel. In the ER, VS showed BP 190's systolic, otherwise wnl. She appeared ill, vomiting and dry heaving. Labs showed sodium low at 128, WBC wnl. CT abd/pelvis showed distention of multiple loops of bowel especially in the lower abdomen and pelvis with air-fluid levels and multiple bubbles of air suggesting obstruction. Questionable volvulus was further evaluated on imaging by surgery (Dr. Dave) but this was decided to be not likely. It was recommended to place NG tube and surgery would follow after admission. Patient was admitted for bowel obstruction, UTI. ROS: Neg except for what is mentioned above PAST MEDICAL HISTORY: 1. Smoking-induced chronic obstructive pulmonary disease (COPD). She has oxygen 2 liters nasal cannula as needed. 2. Nicotine dependence. She continues to smoke small amount each day. 3. History of hepatitis C from a tattoo estimated around 1989. 4. She had liver biopsy in 1999, showing stage II fibrosis. She had a followup showing possibly stage III with possible cirrhosis, treated with Epclusa for 12 weeks in April 2017. 5. History of hypertension. 6. Hyperlipidemia. 7. Gastroesophageal reflux disease. 8. Insomnia. 9. Depression. 10. History of complete bowel resection due to colon blockage. 11. 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 12. Osteoporosis. 13. Chronic kidney disease, followed by nephrology. 14. History of pancytopenia. 15. Fatty liver 16. Recurrent urinary tract infections (UTIs) secondary to fistula. 17. Chronic pain from arthritis, managed by pain specialist in [place], on a chronic fentanyl patch. 18. Peripheral neuropathy. 19. Urinary retention with suprapubic catheter since 2017. 10. Diabetes mellitus, type 2. 11. Chronic back pain and hip pain. PAST SURGICAL HISTORY: 1. Bilateral mastectomies secondary to fibrocystic disease. 2. Cholecystectomy. 3. section times two. 4. Ovarian wedge resection. 5. Dilatation and curettages. 6. A colostomy with multiple surgeries for colostomy revisions, followed by Dr. Barr. 7. She has had partial large intestine and small intestine resections related toblockages and fistula. 8. Appendectomy. 9. Hysterectomy with bilateral salpingo-oophorectomy (BSO). 10. Left hip replacement. 11. She has had an esophagogastroduodenoscopy (EGD) and colonoscopy in [address] Barr, showing diffuse and severe inflammation of the rectum. 12. Pericolostomy hernia repair in July 2017. 13. Suprapubic placement August 2018. 14. Hernia surgery in January 2019. 15. Hx of liver biopsy 16. Breast implant removal surgery FAMILY HISTORY: Family at 50 years old of cerebral hemorrhage. He had bilateral diabetes and bilateral amputation. Mother at 90 years old of an unknown type of cancer. Her son is diabetic. SOCIAL HISTORY: She continues to smoke on occasion but uses Chantix to essentially remain cigarette free since 2016. She does not drink alcohol. She lives with her son. She uses a scooter. PCP- Simona Rouse, Telecommunications Project Manager- Dr. Mccallum, Cardiology-Dr. Fernandez, Urology- Dr. Walton ALLERGIES: BACTRIM DS causes itching. ASPIRIN causes tunnel vision. PENICILLIN causes hives. IV DYE causes itching. AMITRIPTYLINE causes anaphylaxis. MORPHINE IN TABLET FORM, her eyes will swell shut. PHYSICAL EXAMINATION: VITAL SIGNS: Please see below GENERAL APPEARANCE: Ill appearing female, resting in bed, NAD HEENT: AT/NC, NG tube in place, dry oral mucosa, PERRLA CARDIOVASCULAR: S1S2 +, no M/R/G LUNGS: CTAB, no wheezing, rhonchi, rales ABDOMEN: diffusely tender on palpation in all quadrants, multiple well healed scars throughout abdomen, BS + in 4 quadrant, ostomy bag in RLQ : Suprapubic catheter in place MUSCULOSKELETAL: No atrophy EXTREMITIES: Right lower ext/foot with multiple stitches, covered in marianela bandage, some wiring in toes. No cyanosis, clubbing or edema in lower or upper ext . Pulses present in all ext NEUROLOGICAL: AAOx3, CN2-12 in tact, no focal deficits PSYCHIATRIC: Mood and affect appropriate INTEGUMENTARY: No new rashes, open ulcers, stitches and area of incision on RLE appear well healing, clean, nonsuppurative LABORATORY: Please see below IMAGING: Ct abd/pelvis: 1. Right lower quadrant ostomy site with a hernia. 2. Distention of multiple loops of bowel especially in the lower abdomen and pelvis with air-fluid levels and multiple bubbles of air suggesting obstruction. For further verification oral contrast might be considered to follow through the bowel with sequential CTs. 3. Probable removal of the urinary bladder with an ileal conduit that is markedly distended within the pelvis. 4. There is a swirled appearance of the mesenteric vessels and this can be seen with volvulus and obstruction and representing a changes 2019 exam. CXR: Clear appearing lungs ASSESSMENT: 75 y/o F with extensive PMH including recurrent UTI 2/2 to fistula, chronic indwelling suprapubic catheter, COPD, Hx of Hep C, possible cirrhosis, HTN, HLD admitted for further management of bowel obstruction, UTI, acute hyponatremia. PLAN: 1. Bowel obstruction. Hx of multiple abdominal surgeries -CT abd/pelvis above -NG tube with IS to bedside cannister, pain control with morphine PRN (tolerates IV but not PO per patient), NPO, IVFs at 125 cc/hr, zofran and phenergan PRN for n/v -Surgery (Dr. Dave) discussed case with ER attending (Dr. Ndiaye), will consult and follow on floor 2. UTI -Hx of recurrent UTIs with chronic indwelling suprapubic catheter in place and rectovaginal fistula -Last changed on 03/04/20, gets changed monthly. -WBC wnl, afebrile -Ucx from 03/20/20 pending -On Ceftriaxone, f/u results of culture 3. Acute hyponatremia likely 2/2 to dehydration. -F/u Urine osmolality, urine sodium -On IVFs at 125 cc/hr -F/u AM sodium 4. Chronic back,hip pain with DJD -Follows with [facility] -Starting morphine IV PRN for mod and severe pain, resume fentanyl patch. Patient states she cannot tolerate/is allergic to PO morphine but can take IV just fine. Likely not true allergy but will monitor closely 5. HTN -BP 190's systolic on arrival, improved with placement of NG tube and pain control. Repeat 174 mmHG systolic . -While on IVFs, monitor for increasing pressures. -NPO, hold home meds for now -Hydralazine PRN for systolic BP >180 mmHg 6. DM type II -BS 203, has not eaten anything in 4 days -ISS, FS Q6hrs, NPO 7. Tobacco use -Nicotine patch 8. COPD. -Stable on RA -C/w home inhalers 9. Peripheral neuropathy -Holding PO gabapentin, start as soon as taking PO 10. yue Arriola surgery 03/15/20 -Followed up o/p recently with Dr. Mccallum with good results -Changing dressings weekly o/p -Wound care while in hospital 11. Chronic deconditioning with frequent falls at home according to patient. -PT/OT when acute issue has improved 12. GERD, GI px -PPI IV 13. DVT px -Enoxaparin SC DISPOSITION: Admitted under inpatient status. Plan is discharge home when medically improved. PT/OT. Vital Signs Vital Signs Date Time Temp Pulse Resp B/P (MAP) Pulse Ox O2 Delivery O2 Flow Rate FiO2 03/21/20 17:59 98.7 91 18 197/89 (125) 100 Room Air Laboratory Data Labs 24H Laboratory Tests 2 03/21/20 19:33: Immature Granulocyte % (Auto) 0.6, Neutrophils (%) (Auto) 48.1, Lymphocytes (%) (Auto) 33.8, Monocytes (%) (Auto) 16.2H, Eosinophils (%) (Auto) 0.9, Basophils (%) (Auto) 0.4, Neutrophils # (Auto) 2.6, Lymphocytes # (Auto) 1.8, Monocytes # (Auto) 0.9H, Eosinophils # (Auto) 0.1, Basophils # (Auto) 0.0, Nucleated Red Blood Cells % (auto) 0.0, Prothrombin Time 14.4H, Prothromb Time International Ratio 1.10, Activated Partial Thromboplast Time 31.1 CBC/BMP Laboratory Tests 03/21/20 19:33 Home Medications Scheduled Carvedilol (Carvedilol) 3.125 Mg Tablet, 3.125 MG PO BID Clopidogrel Bisulfate (Clopidogrel) 75 Mg Tablet, 75 MG PO DAILY Fentanyl (Fentanyl) 12 Mcg Patch.td72, 12 MCG TD Q3RD Ferrous Sulfate (Ferrous Sulfate) 325 Mg Tab, 325 MG PO DAILY Folic Acid (Folic Acid) 1 Mg Tab, 1 MG PO BID Gabapentin (Gabapentin) 600 Mg Tablet, 600 MG PO TID Glimepiride (Glimepiride) 2 Mg Tablet, 1 MG PO DAILY Lisinopril (Lisinopril) 2.5 Mg Tablet, 2.5 MG PO DAILY Methenamine Hippurate (Methenamine Hippurate) 1 Gm Tab, 1 GRAM PO BID Mirtazapine (Remeron) 30 Mg Tablet, 30 MG PO QHS Montelukast Sodium (Montelukast Sodium) 10 Mg Tablet, 10 MG PO QHS Omeprazole (Omeprazole) 20 Mg Cap, 20 MG PO BID Oxybutynin Chloride (Oxybutynin Chloride ER) 10 Mg Tab.er.24, 10 MG PO BID Salmeterol/Fluticasone (Advair 500-50 Diskus) 1 Each Blst.w.dev, 1 PUFF INH BID Simvastatin (Simvastatin) 20 Mg Tab, 20 MG PO QHS Sulfamethoxazole/Trimethoprim (Bactrim Ds Tablet) 1 Each Tablet, 1 TAB PO BID HAS NOT STARTED YET; TAKES BENADRYL BEFOREHAND Tiotropium Eagan (Spiriva) 18 Mcg Cap.w.dev, 1 INHALATION INH DAILY Trazodone HCl (Trazodone HCl) 100 Mg Tablet, 200 MG PO QHS Varenicline (Chantix) 1 Mg Tablet, 1 MG PO BID Scheduled PRN Albuterol Sulfate (Proair Hfa) 8.5 Gm Hfa.aer.ad, 2 PUFF INH Q4H PRN for SHORTNESS OF BREATH Baclofen (Baclofen) 10 Mg Tab, 10 MG PO TID PRN for MUSCLE SPASMS Diphenhydramine HCl (Benadryl) 25 Mg Capsule, 25 MG PO Q6H PRN for ITCHING CAN TAKE SECOND CAPSULE PER DOSE Hydrocodone/Acetaminophen (Hydrocodone-Acetamin 10-325 mg) 1 Tab Tab, 1 TAB PO TID PRN for PAIN Allergies Coded Allergies: Contrast Media (Verified Allergy, Severe, ANAPHYLAXIS, 03/08/20) SOB, HIVES morphine (Verified Allergy, Severe, THROAT SWELLING, 03/15/20) HAS TAKEN NORCO AND OXYCODONE IN THE PAST Penicillins (Verified Allergy, Intermediate, HIVES, 03/08/20) Sulfa (Sulfonamide Antibiotics) (Verified Allergy, Mild, ITCHING, 03/08/20) sulfamethoxazole (Verified Allergy, Mild, ITCHING, 03/08/20) trimethoprim (Verified Allergy, Mild, ITCHING, 03/08/20) Quinolones (Verified Allergy, Unknown, RED STREAKS UP FOREARM AND ITCHING, 03/08/20) amitriptyline (Verified Adverse Reaction, Intermediate, PASSES OUT, 03/08/20) aspirin (Verified Adverse Reaction, Mild, TUNNEL/BLURRY VISION, 03/08/20) A-FIB/CHADSVASC A-FIB History Current/History of A-Fib/PAF?: No Current PO Anticoag Therapy: No Age/Risk Factor Scoring CHADSVASC: CHADSVASC Response (Comments) Value Age Risk Factor Age 65-74 years old 1 Gender Risk Factor Female 1 Hx of CHF No 0 Hx of HTN Yes 1 Hx of Stroke/TIA/or VTE No 0 Hx of Diabetes Yes 1 Hx of Vascular Disease No 0 Total 4 Treatment Treatment ordered: Other Other anticoagulant ordered: Ny Nair MD Mar 21, 2020 20:35
[2020-03-21 20:36] LABS: ALBUMIN 3.4 GM/DL (3.2-5.2); ALT/SGPT 20 U/L (12-78); BILIRUBIN,DIRECT 0.4 MG/DL (0.0-0.2); BILIRUBIN,TOTAL 0.9 MG/DL (0.2-1.0); BLOOD UREA NITROGEN 13 MG/DL (7-18); CALCIUM LEVEL 8.8 MG/DL (8.8-10.2); CARBON DIOXIDE LEVEL 26 MEQ/L (21-32); CHLORIDE LEVEL 95 MEQ/L (98-107); CK-MB VALUE MASS < 1.0 NG/ML (<3.6); CPK CREATINE PHOSPHOKINASE 36 U/L (26-192); CREATININE FOR GFR 0.86 MG/DL (0.55-1.30); FREE T4 1.61 NG/DL (0.76-1.46); GLOMERULAR FILTRATION RATE > 60.0 (>39); GLUCOSE, FASTING 203 MG/DL (70-100); LIPASE 102 U/L (73-393); MB/CK RELATIVE INDEX 2.78 (< OR =4); POTASSIUM SERUM 3.9 MEQ/L (3.5-5.1); SODIUM LEVEL 128 MEQ/L (136-145); TROPONIN I < 0.02 NG/ML (< 0.10)
[2020-03-21] MEDS ORDERED: OXYB10TA23 PO (21:23)
[2020-03-21] MEDS ORDERED: ADV500INH INH (21:23)
[2020-03-21] MEDS ORDERED: MONT10TA4 PO (21:23)
[2020-03-21] MEDS ORDERED: REME30TA PO (21:23)
[2020-03-21] MEDS ORDERED: GLIM2TAB4 PO (21:23)
[2020-03-21] MEDS ORDERED: PROAAER10 INH (21:23)
[2020-03-21] MEDS ORDERED: VARE1TA PO (21:23)
[2020-03-21] MEDS ORDERED: TRAZ-257 PO (21:23)
[2020-03-21] MEDS ORDERED: GABA600T4 PO (21:23)
[2020-03-21] MEDS ORDERED: CARV3.12 PO (21:23)
[2020-03-21] MEDS ORDERED: LISI2.5T2 PO (21:23)
[2020-03-21] MEDS ORDERED: BENA25CA4 PO (21:23)
[2020-03-21] MEDS ORDERED: BACT800T5 PO (21:23)
[2020-03-21] MEDS ORDERED: SPIR1CAP INH (21:23)
[2020-03-21] MEDS ORDERED: cefTRIAXone SOD 1 GM in D5W MINI-BAG PLUS 50 ML IV ONE (21:30)
[2020-03-21] MEDS ORDERED: MORPHINE 2 MG/ML 1ML VIAL (J2270) IV PRN ×2 (21:45)
[2020-03-21] MEDS: cefTRIAXone SOD 1 GM in D5W MINI-BAG PLUS 50 ML IV SCH (21:58)
[2020-03-21] MEDS: ONDANSETRON 4MG/2ML VIAL IV PRN (21:58)
[2020-03-21] MEDS: PROMETHAZINE INJ 25 MG/ML VIAL (J2550) IV PRN (21:58)
[2020-03-21] MEDS ORDERED: ALBUTEROL 90 MCG/ACT 8GM HFA INHALER INH PRN (22:15)
[2020-03-21 22:50] VITALS: BP 174/106
[2020-03-21] MEDS: HumaLOG INSULIN (NovoLOG) PER UNIT SC SCH (23:30)
[2020-03-21] MEDS: fentaNYL 12 MCG/HR PATCH TD SCH (23:30)
[2020-03-21] MEDS: hydrALAZINE 20MG/ML 1ML VIAL (J0360 PER 20MG) IV PRN (23:57)
[2020-03-22] VITALS (7 sets, daily range): BP systolic 154–192; BP diastolic 70–94
[2020-03-22] MEDS: ADVAIR HFA 230/21MCG INHALER INH SCH ×3 (01:22→20:00)
[2020-03-22 02:47] LABS: OSMOLALITY URINE 545 MOSM/KG (500-800)
[2020-03-22 02:49] LABS: SODIUM,RANDOM URINE 133 MEQ/L
[2020-03-22] MEDS: PROMETHAZINE INJ 25 MG/ML VIAL (J2550) IV PRN (05:23)
[2020-03-22] MEDS: HumaLOG INSULIN (NovoLOG) PER UNIT SC SCH ×3 (05:23→17:17)
[2020-03-22 06:19] LABS: HEMATOCRIT 32.5 % (36.0-47.0); HEMOGLOBIN 11.9 g/dl (12.0-15.5); MEAN CORPUSCULAR HEMOGLOBIN 30.8 pg (27.0-33.0); MEAN CORPUSCULAR VOLUME 84.2 fl (80.0-96.0); PLATELET COUNT, AUTOMATED 175 10^3/uL (150-450); RED BLOOD COUNT 3.86 10^6/uL (4.00-5.40); WHITE BLOOD COUNT 5.4 10^3/uL (4.0-10.0)
[2020-03-22 06:31] LABS: MEAN CORPUSCULAR HGB CONC 36.6 g/dl (32.0-36.5)
[2020-03-22 06:51] LABS: ALBUMIN 3.2 GM/DL (3.2-5.2); ALT/SGPT 19 U/L (12-78); BILIRUBIN,TOTAL 0.7 MG/DL (0.2-1.0); BLOOD UREA NITROGEN 13 MG/DL (7-18); CALCIUM LEVEL 8.2 MG/DL (8.8-10.2); CARBON DIOXIDE LEVEL 23 MEQ/L (21-32); CHLORIDE LEVEL 98 MEQ/L (98-107); CREATININE FOR GFR 0.71 MG/DL (0.55-1.30); GLOMERULAR FILTRATION RATE > 60.0 (>39); GLUCOSE, FASTING 188 MG/DL (70-100); POTASSIUM SERUM 3.6 MEQ/L (3.5-5.1); SODIUM LEVEL 129 MEQ/L (136-145); TOTAL PROTEIN 6.8 GM/DL (6.4-8.2)
[2020-03-22] MEDS: TIOTROPIUM INHALER/CAPSULE (SPIRIVA) INH SCH (07:40)
[2020-03-22] MEDS: PANTOPRAZOLE 40MG VIAL (C9113 PER 1) IV SCH (08:42)
[2020-03-22] MEDS: NICOTINE 14 MG/24 HR TRANSDERMAL TD SCH (08:42)
[2020-03-22] MEDS ORDERED: LISINOPRIL *2.5 MG* TAB PO SCH (09:00)
[2020-03-22] MEDS: MORPHINE 2 MG/ML 1ML VIAL (J2270) IV PRN ×4 (09:14→21:43)
[2020-03-22] MEDS: LR 1,000 ML IV SCH ×2 (09:14→18:07)
--- NOTE | 2020-03-22 10:34 | REPVR ---
PROCEDURE INFORMATION: Exam: XR Complete Acute Abdomen Series Exam date and time: 03/22/2020 10:17 AM Age: 75 years old Clinical indication: Abdominal tenderness; Patient HX: Sbo; Additional info: Ffup sbo TECHNIQUE: Imaging protocol: XR complete acute abdomen series, including 2 or more views of the abdomen and a single view chest. COMPARISON: CR PORTABLE CHEST X-RAY 03/21/2020 6:42 PM FINDINGS: Tubes, catheters and devices: There is a nasogastric tube. The tip is within the proximal stomach. The side port may be within the proximal stomach or gastroesophageal junction. There is a catheter in the lower pelvis Lungs: There is minimal left basilar atelectasis. Pleural space: Normal. No pneumothorax. Heart/Mediastinum: Normal. No cardiomegaly. Gastrointestinal tract: No subdiaphragmatic air is seen. There is air within small bowel loops, and air and stool within colonic loops. No definite bowel dilatation to indicate obstruction. Intraperitoneal space: Anastomotic sutures are seen in the lower midline pelvis. Organs: There are cholecystectomy clips in the right upper quadrant. Additional surgical clips in the left lower abdomen and in the pelvis bilaterally. Vasculature: There is atherosclerotic calcification at the aortic arch. Bones/joints: There is multilevel degenerative disc disease. Left hip arthroplasty partially included. Soft tissues: Normal. IMPRESSION: 1. No evidence of bowel obstruction. 2. Nasogastric tube with tip within the proximal stomach. The tube may be slightly high, with side port in the proximal stomach or gastroesophageal junction. 3. Catheter overlying the lower pelvis. Electronically signed by: Lata Church On 03/22/2020 10:33:47 AM
--- NOTE | 2020-03-22 10:36 | CR.PDOC ---
General Surgery Consultation Date of Consultation 03/22/20 History and Physical CONSULT REPORT FOR: hospitalist service REASON FOR CONSULTATION: nausea, vomiting, small bowel obstruction CHIEF COMPLAINT: Abdominal pain, nausea, vomiting HPI: I was asked to consult on Ms. Will is a 75-year-old female who presented to the emergency room on 03/21/2020 with complaints of a 5 day history of lower abdominal pain which he describes as crampy, nausea, retching, vomiting, unable to tolerate solid foods though she tells me she was able to tolerate liquids. She has a long-standing colostomy in the right side from a perforated diverti culitis years ago and failed reversal of the colostomy where she had a leak and the colostomy at the placed back on, later on needed to be located elsewhere for hernia. She has multiple hernia surgeries both of the midline and of her parastomal hernia. Last year she had a parastomal hernia repair via an incision below her colostomy. She reports having weight loss involuntarily. She is mainly sedentary and uses a wheel chair getting around no she is able to use a walker to get out of bed and go to the bathroom and move around in the house. She has a recent hammertoe surgery. She also has a chronic indwelling suprapubic catheter for urinary retention and recurrent/chronic cystitis along with her other significant comorbidities including history of hep C, possibly early cirrhosis. She presented to the ER on 03/20 with complaints of not feeling well, nausea and poor appetite and was diagnosed with a UTI discharged home on Bactrim and Benadryl. She returned today after she had some further episodes of vomiting. All throughout this patient reports she still has some output from her colostomy but is more liquid/loose. In the emergency room she had loose liquid stool noted in her bag. She also says that she had some slight more increased liquid output prior to coming to the emergency room. PAST MEDICAL HISTORY: 1. Smoking-induced chronic obstructive pulmonary disease (COPD). She has oxygen 2 liters nasal cannula as needed. 2. Nicotine dependence. She continues to smoke small amount each day. 3. History of hepatitis C from a tattoo estimated around 1989. 4. She had liver biopsy in 1999, showing stage II fibrosis. She had a followup showing possibly stage III with possible cirrhosis, treated with Epclusa for 12 weeks in April 2017. 5. History of hypertension. 6. Hyperlipidemia. 7. Gastroesophageal reflux disease. 8. Insomnia. 9. Depression. 10. History of complete bowel resection due to colon blockage. 11. 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 12. Osteoporosis. 13. Chronic kidney disease, followed by nephrology. 14. History of pancytopenia. 15. Fatty liver 16. Recurrent urinary tract infections (UTIs) secondary to fistula. 17. Chronic pain from arthritis, managed by pain specialist in [place], on a chronic fentanyl patch. 18. Peripheral neuropathy. 19. Urinary retention with suprapubic catheter since 2017. 10. Diabetes mellitus, type 2. 11. Chronic back pain and hip pain. PAST SURGICAL HISTORY: 1. Bilateral mastectomies secondary to fibrocystic disease. 2. Cholecystectomy. 3. section times two. 4. Ovarian wedge resection. 5. Dilatation and curettages. 6. A colostomy with multiple surgeries for colostomy revisions, followed by Dr. Barr. 7. She has had partial large intestine and small intestine resections related toblockages and fistula. 8. Appendectomy. 9. Hysterectomy with bilateral salpingo-oophorectomy (BSO). 10. Left hip replacement. 11. She has had an esophagogastroduodenoscopy (EGD) and colonoscopy in [address] Barr, showing diffuse and severe inflammation of the rectum. 12. Pericolostomy hernia repair in July 2017. 13. Suprapubic placement August 2018. 14. Hernia surgery in January 2019. 15. Hx of liver biopsy 16. Breast implant removal surgery FAMILY HISTORY: Family at 50 years old of cerebral hemorrhage. He had bilateral diabetes and bilateral amputation. Mother at 90 years old of an unknown type of cancer. Her son is diabetic. SOCIAL HISTORY: She continues to smoke on occasion but uses Chantix to essentially remain cigarette free since 2016. She does not drink alcohol. She li ves with her son. She uses a scooter. PCP- Simona Rouse, Process Server- Dr. Mccallum, Cardiology-Dr. Fernandez, Urology- Dr. Walton ALLERGIES: BACTRIM DS causes itching. ASPIRIN causes tunnel vision. PENICILLIN causes hives. IV DYE causes itching. AMITRIPTYLINE causes anaphylaxis. MORPHINE IN TABLET FORM, her eyes will swell shut. REVIEW OF SYSTEMS: Patient reports has lost weight gradually, not really sure of the reason. She was in her usual state of health prior to her surgery on 03/15/2020. She had hammertoe surgery and ever since then patient was reporting poor appetite, nausea and intermittent vomiting, unable to tolerate more than liquids. She denies any fevers or chills, recent travel, sick contacts. At baseline she has mainly sedentary lifestyle, does ambulate with a walker from the bed to the bathroom but mainly moves around with a scooter. She denies any chest pains. She uses oxygen intermittently. She denies any new cough or colds. As mentioned she has a suprapubic catheter since last year. She has a long-standing colostomy has multiple abdominal hernia repairs with mesh. She reports she is diabetic. She reports pain in her legs sometimes and swelling. She has a recent hammertoe surgery. Has chronic pain and is on chronic back pain and is on chronic narcotic pain medications including a fentanyl patch and hydrocodone 10 mg tablet intermittently. PHYSICAL EXAMINATION: VITAL SIGNS: Please see below GENERAL APPEARANCE: Ill appearing female, resting in bed, voice discomfort mainly from the presence of the nasogastric tube on her left nostril, complains of headaches from it, intermittently with dry hacking cough, spitting whitish sputum. Looks much older. HEENT: Atraumatic. Nasogastric tube on the left nostril. Initially was 14 Bahamian which is changed an 18 Bahamian at 57/58 cm, minimal drainage despite the change and confirming position. CARDIOVASCULAR: S1S2 +, regular heart rate and rhythm without murmurs slightly on the tachycardic side at low 100s LUNGS: No increased respiratory efforts, clear breath sounds bilaterally ABDOMEN: Patient has a very loose skin, subcutaneous tissue and pannus consistent with a weight loss. Relatively flat and minimally distended but tympanitic to percussion, quiet. Multiple scars at the midline left lower quadrant, right lower quadrant. No active wound. She has a right lower quadrant ostomy which is flat on the skin, associated reducible parastomal hernia. There is no output in the bag. Stoma is viable.. Surrounding skin without much irritation. She has a suprapubic catheter. The catheter has thick whitish depo sit inside of the tube. Urine looks clear. She has tenderness over the midline lower abdomen on deep palpation. Nontender on the lateral abdomen. Nontender on manipulation of the stoma. Parastomal hernia is reducible EXTREMITIES: Right lower ext/foot with multiple stitches, covered in marianela bandage, some wiring in toes. No cyanosis, clubbing or edema in lower or upper ext . Pulses present in all ext NEUROLOGICAL: AAOx3, CN2-12 in tact, no focal deficits INTEGUMENTARY: No new rashes, open ulcers, stitches and area of incision on RLE appear well healing, clean, nonsuppurative LABORATORY: Please see below IMAGING: Ct abd/pelvis: 1. Right lower quadrant ostomy site with a hernia. 2. Distention of multiple loops of bowel especially in the lower abdomen and pelvis with air-fluid levels and multiple bubbles of air suggesting obstruction. For further verification oral contrast might be considered to follow through the bowel with sequential CTs. 3. Probable removal of the urinary bladder with an ileal conduit that is markedly distended within the pelvis. 4. There is a swirled appearance of the mesenteric vessels and this can be seen with volvulus and obstruction and representing a changes 2019 exam. CXR: Clear appearing lungs ASSESSMENT: 75 y/o F with extensive PMH including recurrent UTI 2/2 to fistula, chronic indwelling suprapubic catheter, COPD, Hx of Hep C, possible cirrhosis, HTN, HLD admitted for further management of bowel obstruction, UTI, acute hyponatremia. IMPRESSION AND PLAN: Chronic colostomy with associated parastomal hernia, multiple repairs most r ecently last year with recurrence for stomal hernia that is reducible Small bowel obstruction. By her history she tells me she has been putting on a more loose consistency the past week despite her having nausea vomiting and abdominal pain to seems like partial obstruction though at the time that I examined her there was no output in the colostomy. Most of the area where his tenderness in the lower central abdomen where think she has the obstruction looking at the CT. There is no signs of threatened bowel including bowel wall thickening, free fluid, though there is a mesenteric sworl sign consistent with a mechanical obstruction. She is mostly voicing discomfort from the nasogastric tube and wishes it to be removed. I discussed with her the importance of this. At the time that I got there she has a 14 Bahamian tube in her left naris which was not working though on auscultation seems to be at least in the upper stomach. I changed his to an 18 Bahamian nasogastric tube and put this at 58 cm. I couldn't bring back the liquid that she drank and seems to be at the tail and the stomach on auscultation. Most of her abdominal surgery were done in [place] at [facility] by Dr. Hogan, most recent was a parastomal hernia repair via an incision below her right lower quadrant ostomy. She is recurrence of the parastomal hernia on CT and on examination. She looks to have multiple pieces of mesh in the midline as an IPOM repair. She has multiple serious medical comorbidities including COPD, possible cirrhosis. I think it is worth it to try a nonoperative approach so long as there is no signs or symptoms of threatened bowel. I told her that if this did not improve over the weekend with a transthoracic image her with a CT angiogram to look at the corners of the bowel and point the exact area of the transition point or proceed to surgery certainly would try to approach this laparoscopically first though given multiple surgeries and expected multiple scarring may end up as an open procedure. Vital Signs Vital Signs Date Time Temp Pulse Resp B/P (MAP) Pulse Ox O2 Delivery O2 Flow Rate FiO2 03/22/20 02:00 95 169/77 (107) 03/21/20 23:30 18 03/21/20 22:50 97.3 98 Room Air I&Os I&O- Last 24 Hours up to 6 AM 03/22/20 06:00 Intake Total 475 ml Output Total 875 ml Balance -400 ml Laboratory Data Labs 24H Laboratory Tests 2 03/21/20 19:33: Immature Granulocyte % (Auto) 0.6, Neutrophils (%) (Auto) 48.1, Lymphocytes (%) (Auto) 33.8, Monocytes (%) (Auto) 16.2H, Eosinophils (%) (Auto) 0.9, Basophils (%) (Auto) 0.4, Neutrophils # (Auto) 2.6, Lymphocytes # (Auto) 1.8, Monocytes # (Auto) 0.9H, Eosinophils # (Auto) 0.1, Basophils # (Auto) 0.0, Nucleated Red Blood Cells % (auto) 0.0, Prothrombin Time 14.4H, Prothromb Time International Ratio 1.10, Activated Partial Thromboplast Time 31.1, Anion Gap 7L, Glomerular Filtration Rate > 60.0, Calcium Level 8.8, Total Bilirubin 0.9, Direct Bilirubin 0.4H, Aspartate Amino Transf (AST/SGOT) 12, Alanine Aminotransferase (ALT/SGPT) 20, Alkaline Phosphatase 86, Total Creatine Kinase 36, Creatine Kinase MB < 1.0, Creatine Kinase MB Relative Index 2.78, Troponin I < 0.02, Total Protein 7.0, Albumin 3.4, Albumin/Globulin Ratio 0.9L, Lipase 102, Thyroid Stimulating Hormone (TSH) 1.340, Free Thyroxine 1.61H 03/21/20 21:51: Lactic Acid Level 0.6 03/21/20 23:21: Bedside Glucose (Misc Panel) 220H 03/22/20 02:16: Urine Random Osmolality 545, Urine Random Sodium 133 CBC/BMP Laboratory Tests 03/21/20 19:33 Home Medications Scheduled Carvedilol (Carvedilol) 3.125 Mg Tablet, 3.125 MG PO BID, (Reported) Clopidogrel Bisulfate (Clopidogrel) 75 Mg Tablet, 75 MG PO DAILY, (Reported) Fentanyl (Fentanyl) 12 Mcg Patch.td72, 12 MCG TD Q3RD, (Reported) Ferrous Sulfate (Ferrous Sulfate) 325 Mg Tab, 325 MG PO DAILY, (Reported) Folic Acid (Folic Acid) 1 Mg Tab, 1 MG PO BID, (Reported) Gabapentin (Gabapentin) 600 Mg Tablet, 600 MG PO TID, (Reported) Glimepiride (Glimepiride) 2 Mg Tablet, 1 MG PO DAILY, (Reported) Lisinopril (Lisinopril) 2.5 Mg Tablet, 2.5 MG PO DAILY, (Reported) Methenamine Hippurate (Methenamine Hippurate) 1 Gm Tab, 1 GRAM PO BID, (Reported) Mirtazapine (Remeron) 30 Mg Tablet, 30 MG PO QHS, (Reported) Montelukast Sodium (Montelukast Sodium) 10 Mg Tablet, 10 MG PO QHS, (Reported) Omeprazole (Omeprazole) 20 Mg Cap, 20 MG PO BID, (Reported) Oxybutynin Chloride (Oxybutynin Chloride ER) 10 Mg Tab.er.24, 10 MG PO BID, (Reported) Salmeterol/Fluticasone (Advair 500-50 Diskus) 1 Each Blst.w.dev, 1 PUFF INH BID, (Reported) Simvastatin (Simvastatin) 20 Mg Tab, 20 MG PO QHS, (Reported) Sulfamethoxazole/Trimethoprim (Bactrim Ds Tablet) 1 Each Tablet, 1 TAB PO BID, (Reported) HAS NOT STARTED YET; TAKES BENADRYL BEFOREHAND Tiotropium [place] (Spiriva) 18 Mcg Cap.w.dev, 1 INHALATION INH DAILY, (Reporte d) Trazodone HCl (Trazodone HCl) 100 Mg Tablet, 200 MG PO QHS, (Reported) Varenicline (Chantix) 1 Mg Tablet, 1 MG PO BID, (Reported) Scheduled PRN Albuterol Sulfate (Proair Hfa) 8.5 Gm Hfa.aer.ad, 2 PUFF INH Q4H PRN for SHORTNESS OF BREATH, (Reported) Baclofen (Baclofen) 10 Mg Tab, 10 MG PO TID PRN for MUSCLE SPASMS, (Reported) Diphenhydramine HCl (Benadryl) 25 Mg Capsule, 25 MG PO Q6H PRN for ITCHING, (Reported) CAN TAKE SECOND CAPSULE PER DOSE Hydrocodone/Acetaminophen (Hydrocodone-Acetamin 10-325 mg) 1 Tab Tab, 1 TAB PO TID PRN for PAIN, (Reported) Allergies Coded Allergies: Contrast Media (Verified Allergy, Severe, ANAPHYLAXIS, 03/08/20) SOB, HIVES morphine (Verified Allergy, Severe, THROAT SWELLING, 03/15/20) HAS TAKEN NORCO AND OXYCODONE IN THE PAST Penicillins (Verified Allergy, Intermediate, HIVES, 03/08/20) Sulfa (Sulfonamide Antibiotics) (Verified Allergy, Mild, ITCHING, 03/08/20) sulfamethoxazole (Verified Allergy, Mild, ITCHING, 03/08/20) trimethoprim (Verified Allergy, Mild, ITCHING, 03/08/20) Quinolones (Verified Allergy, Unknown, RED STREAKS UP FOREARM AND ITCHING, 03/08/20) amitriptyline (Verified Adverse Reaction, Intermediate, PASSES OUT, 03/08/20) aspirin (Verified Adverse Reaction, Mild, TUNNEL/BLURRY VISION, 03/08/20) MILLICENT CERVANTES MD Mar 22, 2020 04:51
--- NOTE | 2020-03-22 11:26 | IPNPDOC ---
Text Note Date of Service The patient was seen on 03/22/20. NOTE Subjective: She complains of persistent dry heaves. No output in colostomy ov ernight. Yesterday pt reports she had a lot of watery output. Continues to have abdominal pain. No fever or chills. No SOB. Complains of Back pain and also pain in the riht foot where she had recent surgery. Physical Exam: VITAL SIGNS: Please see below GENERAL APPEARANCE: Ill appearing female, resting in bed, NAD HEENT: AT/NC, NG tube in place, dry oral mucosa, PERRLA CARDIOVASCULAR: S1S2 +, no M/R/G LUNGS: CTAB, no wheezing, rhonchi, rales ABDOMEN: diffusely tender on palpation in all quadrants, multiple well healed scars throughout abdomen, BS + in 4 quadrant, ostomy bag in RLQ : Suprapubic catheter in place MUSCULOSKELETAL: No atrophy EXTREMITIES: Right lower ext/foot with multiple stitches, covered in marianela bandage, some wiring in toes. No cyanosis, clubbing or edema in lower or upper ext . Pulses present in all ext NEUROLOGICAL: AAOx3, CN2-12 in tact, no focal deficits PSYCHIATRIC: Mood and affect appropriate INTEGUMENTARY: No new rashes, open ulcers, stitches and area of incision on RLE appear well healing, clean, nonsuppurative LABORATORY: Please see below IMAGING: Ct abd/pelvis: 1. Right lower quadrant ostomy site with a hernia. 2. Distention of multiple loops of bowel especially in the lower abdomen and pelvis with air-fluid levels and multiple bubbles of air suggesting obstruction. For further verification oral contrast might be considered to follow through the bowel with sequential CTs. 3. Probable removal of the urinary bladder with an ileal conduit that is markedly distended within the pelvis. 4. There is a swirled appearance of the mesenteric vessels and this can be seen with volvulus and obstruction and representing a changes 2019 exam. 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 Bowel obstruction. Hx of multiple abdominal surgeries -CT abd/pelvis above -pain control with morphine PRN (tolerates IV but not PO per patient), NPO, IVFs at 125 cc/hr, zofran and phenergan PRN for n/v -Surgery (Dr. Dave) following. Plan is to try noninvasive measures for 48 hours. UTI -Hx of recurrent UTIs with chronic indwelling suprapubic catheter in place and rectovaginal fistula -Last changed on 03/04/20, gets changed monthly. -WBC wnl, afebrile -Ucx from 03/20/20 pending -On Ceftriaxone Acute hyponatremia likely 2/2 to dehydration. - IVF Chronic back,hip pain with DJD -Follows with [facility] -Starting morphine IV PRN for mod and severe pain, resume fentanyl patch. Deepak goldman states she cannot tolerate/is allergic to PO morphine but can take IV just fine. Likely not true allergy but will monitor closely HTN -still remains uncontroled. Pain is still uncontrolled -restart lisinopril and coreg -Hydralazine PRN for systolic BP >180 mmHg DM type II -BS 203, has not eaten anything in 4 days -ISS, FS Q6hrs, NPO Tobacco use -Nicotine patch COPD. -Stable on RA -C/w home inhalers Peripheral neuropathy -Holding PO gabapentin, start as soon as taking PO yue Arriola surgery 03/15/20 -Followed up o/p recently with Dr. Mccallum with good results -Changing dressings weekly o/p -Wound care while in hospital Chronic deconditioning with frequent falls at home according to patient. -PT/OT when acute issue has improved GERD, GI px -PPI IV H/o Hepatitis C and cirrhosis -compensated at present DVT px -Enoxaparin SC VS,Fishbone, I+O VS, Fishbone, I+O Laboratory Tests 03/21/20 19:33 03/22/20 06:06 Vital Signs Date Time Temp Pulse Resp B/P (MAP) Pulse Ox O2 Delivery O2 Flow Rate FiO2 03/22/20 09:24 18 03/22/20 07:29 98.0 100 177/85 (115) 98 Room Air I&O- Last 24 Hours up to 6 AM 03/22/20 06:00 Intake Total 925 ml Output Total 1025 ml Balance -100 ml LEONILA ADAMS MD Mar 22, 2020 11:26
[2020-03-22] MEDS: CARVedilol 3.125 MG TAB PO SCH ×2 (11:30→21:42)
[2020-03-22] MEDS: cefTRIAXone SOD 1 GM in D5W MINI-BAG PLUS 50 ML IV SCH (21:41)
[2020-03-22] MEDS: zolPIDEM TARTRATE 5 MG TAB PO PRN (22:03)
[2020-03-23] VITALS (14 sets, daily range): BP systolic 147–190; BP diastolic 67–89
[2020-03-23] MEDS: LR 1,000 ML IV SCH ×3 (02:46→18:12)
[2020-03-23] MEDS: hydrALAZINE 20MG/ML 1ML VIAL (J0360 PER 20MG) IV PRN (02:47)
[2020-03-23] MEDS: MORPHINE 2 MG/ML 1ML VIAL (J2270) IV PRN ×6 (02:49→18:12)
[2020-03-23] MEDS: CHLORASEPTIC SPRAY MT PRN ×2 (02:52→06:51)
[2020-03-23 04:53] LABS: HEMOGLOBIN 12.5 g/dl (12.0-15.5); MEAN CORPUSCULAR HGB CONC 35.7 g/dl (32.0-36.5); MEAN CORPUSCULAR VOLUME 86.8 fl (80.0-96.0); PLATELET COUNT, AUTOMATED 166 10^3/uL (150-450); RED BLOOD COUNT 4.03 10^6/uL (4.00-5.40)
[2020-03-23 05:08] LABS: ALBUMIN 3.1 GM/DL (3.2-5.2); ALT/SGPT 20 U/L (12-78); BILIRUBIN,TOTAL 0.7 MG/DL (0.2-1.0); BLOOD UREA NITROGEN 13 MG/DL (7-18); CALCIUM LEVEL 8.6 MG/DL (8.8-10.2); CARBON DIOXIDE LEVEL 24 MEQ/L (21-32); CHLORIDE LEVEL 102 MEQ/L (98-107); CREATININE FOR GFR 0.73 MG/DL (0.55-1.30); GLOMERULAR FILTRATION RATE > 60.0 (>39); GLUCOSE, FASTING 194 MG/DL (70-100); POTASSIUM SERUM 3.6 MEQ/L (3.5-5.1); SODIUM LEVEL 132 MEQ/L (136-145); TOTAL PROTEIN 7.1 GM/DL (6.4-8.2)
[2020-03-23] MEDS: HumaLOG INSULIN (NovoLOG) PER UNIT SC SCH ×4 (05:35→16:42)
[2020-03-23] MEDS ORDERED: hydrALAZINE 20MG/ML 1ML VIAL (J0360 PER 20MG) IV STA (06:45)
[2020-03-23] MEDS: ADVAIR HFA 230/21MCG INHALER INH SCH ×2 (07:41→19:34)
[2020-03-23] MEDS: TIOTROPIUM INHALER/CAPSULE (SPIRIVA) INH SCH (07:41)
[2020-03-23] MEDS: hydrALAZINE 20MG/ML 1ML VIAL (J0360 PER 20MG) IV SCH ×3 (08:00→19:51)
[2020-03-23] MEDS: PANTOPRAZOLE 40MG VIAL (C9113 PER 1) IV SCH (08:32)
[2020-03-23] MEDS: ONDANSETRON 4MG/2ML VIAL IV PRN (08:32)
[2020-03-23] MEDS: CARVedilol 3.125 MG TAB PO SCH ×2 (08:33→20:03)
[2020-03-23] MEDS: lisinopriL 10 MG TAB PO SCH (08:33)
[2020-03-23] MEDS: NICOTINE 14 MG/24 HR TRANSDERMAL TD SCH (08:33)
--- NOTE | 2020-03-23 09:36 | IPNPDOC ---
Text Note Date of Service The patient was seen on 03/23/20. NOTE Subjective: She complains of nausea and bringing up some mucoid material. No output in colostomy overnight only has gas in it. Continues to have some abdominal pain. No fever or chills. No SOB. Complains of Back pain and also pain in the right foot where she had recent surgery. Physical Exam: VITAL SIGNS: Please see below GENERAL APPEARANCE: Ill appearing female, resting in bed, NAD HEENT: AT/NC, NG tube in place, PERRLA CARDIOVASCULAR: S1S2 +, no M/R/G LUNGS: CTAB, no wheezing, rhonchi, rales ABDOMEN: diffusely tender on palpation in all quadrants, multiple well healed scars throughout abdomen, BS + in 4 quadrant, ostomy bag in RLQ : Suprapubic catheter in place MUSCULOSKELETAL: No atrophy EXTREMITIES: Right lower ext/foot with multiple stitches, covered in marianela bandage, some wiring in toes. No cyanosis, clubbing or edema in lower or upper ext . Pulses present in all ext NEUROLOGICAL: AAOx3, CN2-12 in tact, no focal deficits PSYCHIATRIC: Mood and affect appropriate INTEGUMENTARY: No new rashes, open ulcers, stitches and area of incision on RLE appear well healing, clean, nonsuppurative LABORATORY: Please see below IMAGING: Ct abd/pelvis: 1. Right lower quadrant ostomy site with a hernia. 2. Distention of multiple loops of bowel especially in the lower abdomen and pelvis with air-fluid levels and multiple bubbles of air suggesting obstruction. For further verification oral contrast might be considered to follow through the bowel with sequential CTs. 3. Probable removal of the urinary bladder with an ileal conduit that is markedly distended within the pelvis. 4. There is a swirled appearance of the mesenteric vessels and this can be seen with volvulus and obstruction and representing a changes 2019 exam. 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 Bowel obstruction. Hx of multiple abdominal surgeries -CT abd/pelvis above -pain control with morphine PRN (tolerates IV but not PO per patient), NPO, IVFs at 125 cc/hr, zofran and phenergan for n/v -Surgery (Dr. Dave) following. Plan is to try noninvasive measures for 48 to 72 hours. UTI due to chronic suprapubic catheter related -Hx of recurrent UTIs with chronic indwelling suprapubic catheter in place and rectovaginal fistula -Last changed on 03/04/20, gets changed monthly. -WBC wnl, afebrile -Ucx from 03/20/20 Proteus > 100K -On Ceftriaxone Acute hyponatremia likely 2/2 to dehydration. -improving with IVF Chronic back,hip pain with DJD -Follows [facility] - morphine IV PRN for mod and severe pain, resume fentanyl patch. Patient states she cannot tolerate/is allergic to PO morphine but can take IV just fine. Likely not true allergy but will monitor closely HTN -still remains uncontroled. Pain is still uncontrolled -restart lisinopril and coreg -Hydralazine PRN for systolic BP >180 mmHg DM type II -BS 203, has not eaten anything in 4 days -ISS, FS Q6hrs, NPO Tobacco use -Nicotine patch COPD. -Stable on RA -C/w home inhalers advair and spiriva Peripheral neuropathy -Holding PO gabapentin, start as soon as taking PO yue Arriola surgery 03/15/20 -Followed up o/p recently with Dr. Mccallum with good results -Changing dressings weekly o/p -Wound care while in hospital Chronic deconditioning with frequent falls at home according to patient. -PT/OT when acute issue has improved GERD, GI px -PPI IV H/o Hepatitis C and cirrhosis -compensated at present DVT px -Enoxaparin SC VS,Fishbone, I+O VS, Fishbone, I+O Laboratory Tests 03/23/20 04:31 Vital Signs Date Time Temp Pulse Resp B/P (MAP) Pulse Ox O2 Delivery O2 Flow Rate FiO2 03/23/20 09:16 18 Room Air 03/23/20 08:33 163/72 03/23/20 08:33 102 03/23/20 08:00 98.0 97 I&O- Last 24 Hours up to 6 AM 03/23/20 06:00 Intake Total 2900 ml Output Total 2825 ml Balance 75 ml LEONILA ADAMS MD Mar 23, 2020 09:36
--- NOTE | 2020-03-23 11:10 | REPVR ---
PROCEDURE INFORMATION: Exam: XR Complete Acute Abdomen Series Exam date and time: 03/23/2020 10:27 AM Age: 75 years old Clinical indication: Other: Sbo; Additional info: Sbo/ileus TECHNIQUE: Imaging protocol: XR complete acute abdomen series, including 2 or more views of the abdomen and a single view chest. COMPARISON: CR Abdomen,Flat Upright,PA CHEST 03/22/2020 9:52 AM FINDINGS: Tubes, catheters and devices: Enteric tube tip projects over the stomach with side port in the distal esophagus. Lungs: Mild streaky atelectasis in the left lower lobe. Pleural space: No pneumothorax. Heart/Mediastinum: Cardiac silhouette does not appear enlarged. Gastrointestinal tract: Bowel gas pattern is nonobstructive, with moderate stool in the distal colon Intraperitoneal space: Numerous surgical clips throughout the abdomen. Right upper quadrant surgical clips are present. Organs: Splenomegaly, with the spleen measuring up to 17.3 cm on the recent comparison abdomen CT. Bones/joints: Left hip hemiarthroplasty in place. Soft tissues: Normal. IMPRESSION: 1. Enteric tube tip terminates in the stomach with side port in the distal esophagus, would consider advancement. 2. Nonobstructive bowel gas pattern. 3. Splenomegaly. Electronically signed by: Bernardo Pérez On 03/23/2020 11:10:23 AM
--- NOTE | 2020-03-23 11:59 | REPVR ---
PROCEDURE INFORMATION: Exam: XR Abdomen, 1 View Exam date and time: 03/23/2020 11:42 AM Age: 75 years old Clinical indication: Other: Ng tube placement; Additional info: Ng tube advancement TECHNIQUE: Imaging protocol: XR of the abdomen. Views: Frontal supine view of the abdomen. 1 View. COMPARISON: CR Abdomen,Flat Upright,PA CHEST 03/23/2020 10:40 AM FINDINGS: Tubes, catheters and devices: The nasogastric tube has been advanced with tip projected over the stomach and side port at the GE junction. Gastrointestinal tract: Bowel gas pattern is nonobstructive. Intraperitoneal space: Abdominal surgical clips are present. IMPRESSION: Nasogastric tube has been advanced now with tip in the stomach and side port at the GE junction. Electronically signed by: Bernardo Pérez On 03/23/2020 11:58:43 AM
[2020-03-23] MEDS: SIMETHICONE 80 MG CHEW TAB PO SCH ×3 (12:04→20:03)
[2020-03-23] MEDS: ONDANSETRON 4MG/2ML VIAL IV SCH ×2 (13:05→19:52)
[2020-03-23] MEDS: zolPIDEM TARTRATE 5 MG TAB PO PRN (20:03)
[2020-03-23] MEDS: cefTRIAXone SOD 1 GM in D5W MINI-BAG PLUS 50 ML IV SCH (21:21)
[2020-03-24] VITALS (9 sets, daily range): BP systolic 147–180; BP diastolic 66–80
[2020-03-24] MEDS: HumaLOG INSULIN (NovoLOG) PER UNIT SC SCH ×5 (00:09→23:29)
[2020-03-24] MEDS: MORPHINE 2 MG/ML 1ML VIAL (J2270) IV PRN ×5 (00:31→08:18)
[2020-03-24] MEDS: hydrALAZINE 20MG/ML 1ML VIAL (J0360 PER 20MG) IV SCH ×4 (02:43→20:01)
[2020-03-24] MEDS: LR 1,000 ML IV SCH ×3 (02:43→14:33)
[2020-03-24] MEDS: ONDANSETRON 4MG/2ML VIAL IV SCH ×4 (02:44→20:00)
[2020-03-24 07:47] LABS: BASO % 0.5 % (0.0-1.0); EOS # 0.1 10^3/uL (0.0-0.5); EOS % 2.1 % (0.0-3.0); HEMATOCRIT 32.2 % (36.0-47.0); HEMOGLOBIN 11.5 g/dl (12.0-15.5); LYMPH % 47.1 % (24.0-44.0); MEAN CORPUSCULAR HEMOGLOBIN 30.7 pg (27.0-33.0); MEAN CORPUSCULAR HGB CONC 35.7 g/dl (32.0-36.5); MEAN CORPUSCULAR VOLUME 85.9 fl (80.0-96.0); MONO # 0.9 10^3/uL (0.0-0.8); NEUTROPHILS # 1.3 10^3/uL (1.5-8.5); NEUTROPHILS % 30.1 % (36.0-66.0); PLATELET COUNT, AUTOMATED 160 10^3/uL (150-450); RED BLOOD COUNT 3.75 10^6/uL (4.00-5.40); WHITE BLOOD COUNT 4.3 10^3/uL (4.0-10.0)
[2020-03-24] MEDS: ADVAIR HFA 230/21MCG INHALER INH SCH ×2 (07:53→20:07)
[2020-03-24] MEDS: TIOTROPIUM INHALER/CAPSULE (SPIRIVA) INH SCH (07:53)
[2020-03-24] MEDS: CARVedilol 3.125 MG TAB PO SCH ×2 (08:14→21:33)
[2020-03-24] MEDS: SIMETHICONE 80 MG CHEW TAB PO SCH ×4 (08:14→21:33)
[2020-03-24] MEDS: lisinopriL 10 MG TAB PO SCH (08:15)
[2020-03-24 08:16] LABS: BLOOD UREA NITROGEN 13 MG/DL (7-18); CALCIUM LEVEL 8.2 MG/DL (8.8-10.2); CARBON DIOXIDE LEVEL 25 MEQ/L (21-32); CHLORIDE LEVEL 104 MEQ/L (98-107); CREATININE FOR GFR 0.66 MG/DL (0.55-1.30); GLOMERULAR FILTRATION RATE > 60.0 (>39); GLUCOSE, FASTING 140 MG/DL (70-100); POTASSIUM SERUM 3.5 MEQ/L (3.5-5.1); SODIUM LEVEL 138 MEQ/L (136-145)
[2020-03-24] MEDS: PANTOPRAZOLE 40MG VIAL (C9113 PER 1) IV SCH (08:19)
[2020-03-24] MEDS: NICOTINE 14 MG/24 HR TRANSDERMAL TD SCH (08:20)
--- NOTE | 2020-03-24 09:19 | IPNPDOC ---
Text Note Date of Service The patient was seen on 03/24/20. NOTE Subjective: She complains of nausea and bringing up some mucoid material. Air coming in colostomy bag. Minimal output in NG tube. COntinues to complain of abdominal pain. But she also has chronic pain. No fever or chills, No chest pain or SOB. Complains of Back pain and also pain in the right foot where she had recent surgery. Physical Exam: VITAL SIGNS: Please see below GENERAL APPEARANCE: Ill appearing female, resting in bed, NAD HEENT: AT/NC, NG tube in place, PERRLA CARDIOVASCULAR: S1S2 +, no M/R/G LUNGS: CTAB, no wheezing, rhonchi, rales ABDOMEN: diffusely tender on palpation in all quadrants, multiple well healed scars throughout abdomen, No distension, ostomy bag in RLQ, bowel sounds sluggish. : Suprapubic catheter in place MUSCULOSKELETAL: No atrophy EXTREMITIES: Right lower ext/foot with multiple stitches, covered in marianela bandage, some wiring in toes. No cyanosis, clubbing or edema in lower or upper ext . Pulses present in all ext NEUROLOGICAL: AAOx3, CN2-12 in tact, no focal deficits PSYCHIATRIC: Mood and affect appropriate INTEGUMENTARY: No new rashes, open ulcers, stitches and area of incision on RLE appear well healing, clean, nonsuppurative LABORATORY: Please see below IMAGING: Ct abd/pelvis: 1. Right lower quadrant ostomy site with a hernia. 2. Distention of multiple loops of bowel especially in the lower abdomen and pelvis with air-fluid levels and multiple bubbles of air suggesting obstruction. For further verification oral contrast might be considered to follow through the bowel with sequential CTs. 3. Probable removal of the urinary bladder with an ileal conduit that is markedly distended within the pelvis. 4. There is a swirled appearance of the mesenteric vessels and this can be seen with volvulus and obstruction and representing a changes 2019 exam. 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 Bowel obstruction. Hx of multiple abdominal surgeries -CT abd/pelvis above -pain control with morphine PRN (tolerates IV but not PO per patient), NPO, IVFs at 125 cc/hr, zofran and phenergan for n/v, She also has fentanyl patch. -Surgery (Dr. Dave) following. Plan is to try noninvasive measures for 48 to 72 hours. UTI due to chronic suprapubic catheter related -Hx of recurrent UTIs with chronic indwelling suprapubic catheter in place and rectovaginal fistula -Last changed on 03/04/20, gets changed monthly. -WBC wnl, afebrile -Ucx from 03/20/20 Proteus > 100K -On Ceftriaxone Acute hyponatremia likely 2/2 to dehydration. -improved Chronic back,hip pain with DJD -Follows with [facility] - morphine IV PRN for mod and severe pain, resume fentanyl patch. Patient states she cannot tolerate/is allergic to PO morphine but can take IV just fine. Likely not true allergy but will monitor closely HTN -still remains uncontrolled. Pain is still uncontrolled -on lisinopril and coreg, lisinopril dose increased. -Hydralazine PRN for systolic BP >180 mmHg DM type II -BS 203, has not eaten anything in 4 days -ISS, FS Q6hrs, NPO Tobacco use -Nicotine patch COPD. -Stable on RA -C/w home inhalers advair and spiriva Peripheral neuropathy -Holding PO gabapentin, start as soon as taking PO yue Arriola surgery 03/15/20 -Followed up o/p recently with Dr. Mccallum with good results -Changing dressings weekly o/p -Wound care while in hospital Chronic deconditioning with frequent falls at home according to patient. -PT/OT when acute issue has improved GERD, GI px -PPI IV H/o Hepatitis C and cirrhosis -compensated at present DVT px -Enoxaparin SC VS,Fishbone, I+O VS, Fishbone, I+O Laboratory Tests 03/24/20 07:34 Vital Signs Date Time Temp Pulse Resp B/P (MAP) Pulse Ox O2 Delivery O2 Flow Rate FiO2 03/24/20 08:28 18 176/73 96 Room Air 03/24/20 08:18 92 03/24/20 07:46 98.2 I&O- Last 24 Hours up to 6 AM 03/24/20 05:59 Intake Total 3075 ml Output Total 2175 ml Balance 900 ml LEONILA ADAMS MD Mar 24, 2020 09:19
[2020-03-24] MEDS: PROMETHAZINE INJ 25 MG/ML VIAL (J2550) IV PRN (10:29)
[2020-03-24] MEDS: MORPHINE 4 MG/ML 1ML VIAL/SYRINGE (J2270) IV PRN ×3 (10:31→18:34)
[2020-03-24] MEDS ORDERED: ENALAPRILAT INJ 2.5MG/2ML VIAL IV ONE (12:00)
[2020-03-24] MEDS: cloNIDine HCL 0.2 MG/24 HR PATCH TOP SCH (12:22)
[2020-03-24] MEDS: ENALAPRILAT INJ 2.5MG/2ML VIAL IV SCH (18:12)
[2020-03-24] MEDS ORDERED: lisinopriL 10 MG TAB PO SCH (21:00)
[2020-03-24] MEDS: cefTRIAXone SOD 1 GM in D5W MINI-BAG PLUS 50 ML IV SCH (21:34)
[2020-03-24] MEDS: zolPIDEM TARTRATE 5 MG TAB PO PRN (21:34)
[2020-03-24] MEDS: fentaNYL 12 MCG/HR PATCH TD SCH (21:37)
[2020-03-24] MEDS: FENTANYL REMOVAL DOCUMENTATION MISC XX SCH (21:41)
[2020-03-25] VITALS (9 sets, daily range): BP systolic 148–178; BP diastolic 62–81
[2020-03-25] MEDS: ENALAPRILAT INJ 2.5MG/2ML VIAL IV SCH ×4 (00:02→17:31)
[2020-03-25] MEDS: MORPHINE 4 MG/ML 1ML VIAL/SYRINGE (J2270) IV PRN ×4 (00:03→20:50)
[2020-03-25] MEDS: hydrALAZINE 20MG/ML 1ML VIAL (J0360 PER 20MG) IV SCH ×4 (02:00→20:44)
[2020-03-25] MEDS: ONDANSETRON 4MG/2ML VIAL IV SCH ×4 (02:10→20:43)
[2020-03-25] MEDS: HumaLOG INSULIN (NovoLOG) PER UNIT SC SCH ×3 (06:00→17:30)
[2020-03-25 06:05] LABS: BASO % 0.4 % (0.0-1.0); EOS # 0.2 10^3/uL (0.0-0.5); EOS % 3.9 % (0.0-3.0); HEMATOCRIT 30.1 % (36.0-47.0); HEMOGLOBIN 10.6 g/dl (12.0-15.5); LYMPH # 1.7 10^3/uL (1.5-5.0); LYMPH % 34.5 % (24.0-44.0); MEAN CORPUSCULAR HEMOGLOBIN 30.5 pg (27.0-33.0); MEAN CORPUSCULAR HGB CONC 35.2 g/dl (32.0-36.5); MEAN CORPUSCULAR VOLUME 86.5 fl (80.0-96.0); MONO % 20.2 % (0.0-5.0); NEUTROPHILS % 40.8 % (36.0-66.0); PLATELET COUNT, AUTOMATED 158 10^3/uL (150-450); RED BLOOD COUNT 3.48 10^6/uL (4.00-5.40); WHITE BLOOD COUNT 4.8 10^3/uL (4.0-10.0)
[2020-03-25] MEDS: LR 1,000 ML IV SCH (06:17)
[2020-03-25 06:24] LABS: BLOOD UREA NITROGEN 9 MG/DL (7-18); CALCIUM LEVEL 8.3 MG/DL (8.8-10.2); CARBON DIOXIDE LEVEL 24 MEQ/L (21-32); CHLORIDE LEVEL 103 MEQ/L (98-107); CREATININE FOR GFR 0.64 MG/DL (0.55-1.30); GLOMERULAR FILTRATION RATE > 60.0 (>39); GLUCOSE, FASTING 144 MG/DL (70-100); POTASSIUM SERUM 3.4 MEQ/L (3.5-5.1); SODIUM LEVEL 136 MEQ/L (136-145)
[2020-03-25] MEDS: TIOTROPIUM INHALER/CAPSULE (SPIRIVA) INH SCH (07:16)
[2020-03-25] MEDS: ADVAIR HFA 230/21MCG INHALER INH SCH ×2 (07:17→19:17)
--- NOTE | 2020-03-25 08:47 | IPNPDOC ---
Text Note Date of Service The patient was seen on 03/25/20. NOTE Weekend events reviewed likewise I reviewed the follow-up x-rays done over the weekend. Patient reports feeling better, this abdominal discomfort, denies any nausea, bloating has improved. She continues to pass a good amount of gas through her colostomy care she reports she has emptied her colostomy twice this morning but only minimal stool output. Nasogastric tube output has been minimal. Vital signs stable On examination Patient appears more comfortable. Nasogastric tube remains in place. Lips appear mildly dry No obvious jugular venous distention Lung sounds are clear to auscultation bilaterally without wheezing Regular heart rate and rhythm Abdomen is much flatter though still hypoactive bowel sounds. Only minimal discomfort on deep palpation around the suprapubic area. Ostomy is viable and pink with gas in the bag Impression and plan Colostomy status Parastomal hernia Small bowel obstruction versus ileus. Initial imaging pattern shows small bowel obstruction to subsequent x-ray show more likely an ileus pattern with increasing gas in the colon. He continues to pass flatus intermittently but has minimal output. She is scheduled for small bowel follow through today. If that does not demonstrate any obstruction would give her some laxatives both through the colostomy and orally to try to help move her bowel and continue to get her to improve. VS,Fishbone, I+O VS, Fishbone, I+O Laboratory Tests 03/25/20 05:46 Vital Signs Date Time Temp Pulse Resp B/P (MAP) Pulse Ox O2 Delivery O2 Flow Rate FiO2 03/25/20 07:37 98.0 95 20 154/62 (92) 96 Room Air I&O- Last 24 Hours up to 6 AM0 03/25/20 05:59 Intake Total 1130 ml Output Total 2290 ml Balance -1160 ml MILLICENT CERVANTES MD Mar 25, 2020 08:16
[2020-03-25] MEDS: PANTOPRAZOLE 40MG VIAL (C9113 PER 1) IV SCH (08:48)
[2020-03-25] MEDS: NICOTINE 14 MG/24 HR TRANSDERMAL TD SCH (08:49)
[2020-03-25] MEDS: SIMETHICONE 80 MG CHEW TAB PO SCH ×4 (08:49→20:41)
[2020-03-25] MEDS: CARVedilol 3.125 MG TAB PO SCH ×2 (08:50→20:43)
[2020-03-25] MEDS ORDERED: GASTROGRAFIN SOLUTION 30ML (Q9963) As Ordered ONE (10:26)
--- NOTE | 2020-03-25 10:51 | IPNPDOC ---
Text Note Date of Service The patient was seen on 03/25/20. NOTE Subjective: She complains of nausea and bringing up some mucoid material. Air coming in colostomy bag. Minimal output in NG tube. COntinues to complain of abdominal pain. But she also has chronic pain. No fever or chills, No chest pain or SOB. Complains of Back pain and also pain in the right foot where she had recent surgery. Physical Exam: VITAL SIGNS: Please see below GENERAL APPEARANCE: Ill appearing female, resting in bed, NAD HEENT: AT/NC, NG tube in place, PERRLA CARDIOVASCULAR: S1S2 +, no M/R/G LUNGS: CTAB, no wheezing, rhonchi, rales ABDOMEN: diffusely tender on palpation in all quadrants, multiple well healed scars throughout abdomen, No distension, ostomy bag in RLQ, bowel sounds sluggish. : Suprapubic catheter in place MUSCULOSKELETAL: No atrophy EXTREMITIES: Right lower ext/foot with multiple stitches, covered in marinaela bandage, some wiring in toes. No cyanosis, clubbing or edema in lower or upper ext . Pulses present in all ext NEUROLOGICAL: AAOx3, CN2-12 in tact, no focal deficits PSYCHIATRIC: Mood and affect appropriate INTEGUMENTARY: No new rashes, open ulcers, stitches and area of incision on RLE appear well healing, clean, nonsuppurative LABORATORY: Please see below IMAGING: Ct abd/pelvis: 1. Right lower quadrant ostomy site with a hernia. 2. Distention of multiple loops of bowel especially in the lower abdomen and pelvis with air-fluid levels and multiple bubbles of air suggesting obstruction. For further verification oral contrast might be considered to follow through the bowel with sequential CTs. 3. Probable removal of the urinary bladder with an ileal conduit that is markedly distended within the pelvis. 4. There is a swirled appearance of the mesenteric vessels and this can be seen with volvulus and obstruction and representing a changes 2019 exam. 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 Bowel obstruction Vs ileus Parastomal hernia, Colostomy status Hx of multiple abdominal surgeries "Initial imaging pattern showed small bowel obstruction, subsequent x-ray show more likely an ileus pattern with increasing gas in the colon. She continues to pass flatus intermittently but has minimal output." She is scheduled for small bowel follow through today. -pain control with morphine PRN (tolerates IV but not PO per patient), NPO, IVFs , zofran and phenergan for n/v, She also has fentanyl patch. -Surgery (Dr. Dave) following. UTI due to chronic suprapubic catheter related -Hx of recurrent UTIs with chronic indwelling suprapubic catheter in place and rectovaginal fistula -Last changed on 03/04/20, gets changed monthly. -WBC wnl, afebrile -Ucx from 03/20/20 Proteus > 100K -On Ceftriaxone Acute hyponatremia likely 2/2 to dehydration. -improved Chronic back,hip pain with DJD, Foot pain , chronic abdominal pain. -Follows with [facility] and pain management - morphine IV PRN for mod and severe pain, resume fentanyl patch. Patient states she cannot tolerate/is allergic to PO morphine but can take IV just fine. Likely not true allergy but will monitor closely HTN -still remains uncontrolled. Pain is still uncontrolled -on IV enalapril, Clonidine patch, coreg, -Hydralazine PRN for systolic BP >180 mmHg DM type II -BS 203, has not eaten anything in 4 days -ISS, FS Q6hrs, NPO Tobacco use -Nicotine patch COPD. -Stable on RA -C/w home inhalers advair and spiriva Peripheral neuropathy -Holding PO gabapentin, start as soon as taking PO yue Arriola surgery 03/15/20 -Followed up o/p recently with Dr. Mccallum with good results -Changing dressings weekly o/p -Wound care while in hospital , Heel boots. Consult Dr Mercer for follow up of Surgical Wound was supposed to see on [facility] Chronic deconditioning with frequent falls at home according to patient. -PT/OT when acute issue has improved GERD, GI px -PPI IV H/o Hepatitis C and cirrhosis -compensated at present DVT px -Enoxaparin SC VS,Fishbone, I+O VS, Fishbone, I+O Laboratory Tests 03/25/20 05:46 Vital Signs Date Time Temp Pulse Resp B/P (MAP) Pulse Ox O2 Delivery O2 Flow Rate FiO2 03/25/20 10:38 16 Room Air 03/25/20 08:50 95 154/62 03/25/20 07:37 98.0 96 I&O- Last 24 Hours up to 6 AM 03/25/20 06:00 Intake Total 1180 ml Output Total 2040 ml Balance -860 ml LEONILA ADAMS MD Mar 25, 2020 10:51
--- NOTE | 2020-03-25 17:42 | IPN ---
DATE: 03/23/2020 SUBJECTIVE: The patient has had a small bowel obstruction, has a parastomal hernia as well but she has essentially developed a scaphoid abdomen at this time. She has had minimal NG-tube output but it really has not been a significant amount. She states that he is still having some abdominal discomfort but she is also having lower back pain discomfort, pain in her foot. From the standpoint of her ostomy, it has been pink. There is air in the bag and does not appear to have any drainage at this time and no significant stool output. Otherwise, her abdomen is mildly uncomfortable and tender in the midline but it is mostly to deep palpation. No significant peritoneal signs are appreciated. X-rays were obtained given her discomfort and I am not seeing any significant evidence of bowel obstruction and the same was true yesterday from the report. There was obviously air in the bag and no significant NG tube output, highly suggested there may not be a significant bowel obstruction at this point and I wonder if her nausea is related to possible gastritis or some other etiology than specifically bowel obstruction issues. Thus, if she does not have significant ostomy output over the next 24 hours, my recommendation is that we proceed with an upper GI with small bowel follow through and if she does not have good resolution of her symptoms she may need to be brought to the Operating Room. I would recommend that we decompress her after the small bowel follow through if she has some partial obstructive symptoms still and that will make operative intervention easily but once again at this time she has been afebrile. She has a normal white count and she has air in the ostomy suggesting that she may have an ileus or partial obstruction at most at this time. SASCHA
[2020-03-25] MEDS: cefTRIAXone SOD 1 GM in D5W MINI-BAG PLUS 50 ML IV SCH (22:23)
[2020-03-25] MEDS: zolPIDEM TARTRATE 5 MG TAB PO PRN (22:41)
[2020-03-26] VITALS: BP 114/55
[2020-03-26] MEDS: hydrALAZINE 20MG/ML 1ML VIAL (J0360 PER 20MG) IV SCH ×3 (02:00→14:00)
[2020-03-26] MEDS: ONDANSETRON 4MG/2ML VIAL IV SCH ×4 (02:51→19:56)
[2020-03-26] MEDS: MORPHINE 4 MG/ML 1ML VIAL/SYRINGE (J2270) IV PRN ×5 (03:05→21:55)
[2020-03-26] MEDS: ENALAPRILAT INJ 2.5MG/2ML VIAL IV SCH ×3 (05:47→12:00)
[2020-03-26] MEDS: LR 1,000 ML IV SCH ×2 (05:48→18:00)
[2020-03-26] MEDS: HumaLOG INSULIN (NovoLOG) PER UNIT SC SCH ×5 (05:48→19:59)
[2020-03-26 06:36] LABS: BASO % 0.6 % (0.0-1.0); EOS # 0.2 10^3/uL (0.0-0.5); EOS % 4.7 % (0.0-3.0); HEMOGLOBIN 9.9 g/dl (12.0-15.5); LYMPH # 1.4 10^3/uL (1.5-5.0); LYMPH % 43.6 % (24.0-44.0); MEAN CORPUSCULAR HEMOGLOBIN 30.8 pg (27.0-33.0); MEAN CORPUSCULAR HGB CONC 35.4 g/dl (32.0-36.5); MEAN CORPUSCULAR VOLUME 87.2 fl (80.0-96.0); MONO # 0.7 10^3/uL (0.0-0.8); MONO % 20.4 % (0.0-5.0); NEUTROPHILS % 30.4 % (36.0-66.0); PLATELET COUNT, AUTOMATED 126 10^3/uL (150-450); RED BLOOD COUNT 3.21 10^6/uL (4.00-5.40); WHITE BLOOD COUNT 3.2 10^3/uL (4.0-10.0)
[2020-03-26 07:01] LABS: BLOOD UREA NITROGEN 9 MG/DL (7-18); CALCIUM LEVEL 8.2 MG/DL (8.8-10.2); CARBON DIOXIDE LEVEL 25 MEQ/L (21-32); CHLORIDE LEVEL 104 MEQ/L (98-107); CREATININE FOR GFR 0.65 MG/DL (0.55-1.30); GLOMERULAR FILTRATION RATE > 60.0 (>39); GLUCOSE, FASTING 137 MG/DL (70-100); POTASSIUM SERUM 3.3 MEQ/L (3.5-5.1); SODIUM LEVEL 139 MEQ/L (136-145)
[2020-03-26] MEDS: TIOTROPIUM INHALER/CAPSULE (SPIRIVA) INH SCH (07:16)
[2020-03-26] MEDS: ADVAIR HFA 230/21MCG INHALER INH SCH ×2 (07:16→19:50)
[2020-03-26 08:00] VITALS: BP 131/63
[2020-03-26] MEDS: NICOTINE 14 MG/24 HR TRANSDERMAL TD SCH (08:19)
[2020-03-26] MEDS: PANTOPRAZOLE 40MG VIAL (C9113 PER 1) IV SCH (08:20)
[2020-03-26] MEDS: SIMETHICONE 80 MG CHEW TAB PO SCH ×4 (08:20→19:57)
[2020-03-26] MEDS: CARVedilol 3.125 MG TAB PO SCH ×2 (08:22→19:58)
[2020-03-26] MEDS ORDERED: POTASSIUM CHLORIDE 10 MEQ SR TABLET PO ONE (09:00)
[2020-03-26 12:00] VITALS: BP 113/56
[2020-03-26] MEDS ORDERED: GLUCOSE 4GM CHEW TABLET PO PRN (12:15)
[2020-03-26] MEDS ORDERED: DEXTROSE 50% 50 ML SYRINGE IV PRN (12:15)
[2020-03-26] MEDS ORDERED: GLUCAGON INJ 1MG VIAL SC PRN (12:15)
[2020-03-26] MEDS: MOM 30ML SUSPENSION UDC PO SCH (13:11)
--- NOTE | 2020-03-26 14:34 | IPNPDOC ---
Date Seen The patient was seen on 03/26/20. Progress Note SUBJECTIVE: patient was seen and examined at bedside. Doing well. No acute events overnight. Had large BM via stoma yesterday. Abdominal pain mild to moderate today. OBJECTIVE PHYSICAL EXAMINATION: VITAL SIGNS: Please see below. General: NAD, comfortable HEENT: PERRLA, EOMI, sclerae clear Neck: supple, normal ROM, no JVD Resp: lungs CTAB, no wheeze, no rales, no crackles CVS: RRR, normal S1, S2, no murmurs Abdo: R ostomy bag distended with gas. Bilious stool at bottom. Large midline laparotomy scar. Soft, no rebound tenderness. Extremities: no edema, pulses 2+MSK: no joint deformities, normal ROM Neuro: no focal neuro deficits, moving all 4 extremities Psych: calm, cooperative, AAO x 3 LABORATORY DATA, IMAGING STUDIES, MICROBIOLOGY: Please see below. Ct abdomen/pelvis: 1. Right lower quadrant ostomy site with a hernia. 2. Distention of multiple loops of bowel especially in the lower abdomen and pelvis with air-fluid levels and multiple bubbles of air suggesting obstruction. For further verification oral contrast might be considered to follow through the bowel with sequential CTs. 3. Probable removal of the urinary bladder with an ileal conduit that is markedly distended within the pelvis. 4. There is a swirled appearance of the mesenteric vessels and this can be seen with volvulus and obstruction and representing a changes 2019 exam. SBFT: Prelim report reviewed: no stricture or obstruction, no extravasation seen. 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 General surgery consulted (Dr. Brooks ross). PROBLEMS: # SBO vs ileus - multiple abdominal surgeries, recent repair of parastomal hernia - completed SBFT study - prelim report reviewed, no evidence for obstruction, stricture - general surgery following (Dr. Dave) - had large BM yesterday. Soft diet. # Recurrent UTI - chronic suprapubic moura - WBC wnl, afebrile - last changed 03/04/20 - last culture from 03/20/20 - Proteus > 100k - ceftriaxone # HTN - BP normotensive # DM2 - ISS - soft diet #COPD - oxygenating well on RA - home inhalers: advair, spiriva # Peripheral neuropathy - gabapentin at home - resume # Hammer toe - s/p OR 03/15/20 - weekly dressing changes - wound care while admitted, heel boots - Dr. Mccallum consulted for f/u, missed appt # Deconditioning - PT/OT #HCV, cirrhosis - stable # Hypokalemia - replace - repeat BMP # Chronic back pain, hip pain -Follows with [facility] and pain management - morphine IV PRN for mod and severe pain, resume fentanyl patch. Patient states she cannot tolerate/is allergic to PO morphine but can take IV just fine. Likely not true allergy but will monitor closely DVT ppx: lovenox VS, I&O, 24H, Fishbone Vital Signs/I&O Vital Signs Date Time Temp Pulse Resp B/P (MAP) Pulse Ox O2 Delivery O2 Flow Rate FiO2 03/26/20 13:00 18 Room Air 03/26/20 12:00 99.5 82 113/56 (75) 98 I&O- Last 24 Hours up to 6 AM 03/26/20 06:00 Intake Total 1310 ml Output Total 2775 ml Balance -1465 ml Laboratory Data 24H LABS Laboratory Tests 2 03/25/20 17:10: Bedside Glucose (Misc Panel) 113H 03/25/20 23:18: Bedside Glucose (Misc Panel) 139H 03/26/20 05:23: Bedside Glucose (Misc Panel) 134H 03/26/20 06:22: Immature Granulocyte % (Auto) 0.3, Neutrophils (%) (Auto) 30.4L, Lymphocytes (%) (Auto) 43.6, Monocytes (%) (Auto) 20.4H, Eosinophils (%) (Auto) 4.7H, Basophils (%) (Auto) 0.6, Neutrophils # (Auto) 1.0L, Lymphocytes # (Auto) 1.4L, Monocytes # (Auto) 0.7, Eosinophils # (Auto) 0.2, Basophils # (Auto) 0.0, Nucleated Red Blood Cells % (auto) 0.0, Anion Gap 10, Glomerular Filtration Rate > 60.0, Calcium Level 8.2L 03/26/20 11:56: Bedside Glucose (Misc Panel) 185H CBC/BMP Laboratory Tests 03/26/20 06:22 FERNANDO CAMPA MD Mar 26, 2020 14:34
[2020-03-26] MEDS: GABAPENTIN 300 MG CAP PO SCH ×2 (15:43→19:57)
[2020-03-26 16:00] VITALS: BP 150/70
[2020-03-26 18:15] VITALS: BP 134/60
--- NOTE | 2020-03-26 18:53 | ECGEPIP ---
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
[2020-03-26] MEDS: traZODone 100 MG TAB PO SCH (19:57)
[2020-03-26] MEDS: SIMVASTATIN 20 MG TAB PO SCH (19:57)
[2020-03-26] MEDS: MIRTAZAPINE 15 MG TAB PO SCH (19:58)
[2020-03-26 22:00] VITALS: BP 145/72
[2020-03-27] MEDS: ONDANSETRON 4MG/2ML VIAL IV SCH ×4 (02:38→22:08)
[2020-03-27 06:00] VITALS: BP 133/63
[2020-03-27] MEDS: LR 1,000 ML IV SCH (06:38)
[2020-03-27 07:02] LABS: BASO % 0.4 % (0.0-1.0); EOS # 0.1 10^3/uL (0.0-0.5); EOS % 3.7 % (0.0-3.0); HEMATOCRIT 26.8 % (36.0-47.0); HEMOGLOBIN 9.2 g/dl (12.0-15.5); LYMPH # 1.4 10^3/uL (1.5-5.0); LYMPH % 55.7 % (24.0-44.0); MEAN CORPUSCULAR HEMOGLOBIN 30.8 pg (27.0-33.0); MEAN CORPUSCULAR HGB CONC 34.3 g/dl (32.0-36.5); MEAN CORPUSCULAR VOLUME 89.6 fl (80.0-96.0); MONO # 0.4 10^3/uL (0.0-0.8); MONO % 17.5 % (0.0-5.0); NEUTROPHILS % 22.3 % (36.0-66.0); PLATELET COUNT, AUTOMATED 109 10^3/uL (150-450); RED BLOOD COUNT 2.99 10^6/uL (4.00-5.40); WHITE BLOOD COUNT 2.5 10^3/uL (4.0-10.0)
[2020-03-27 07:06] LABS: NEUTROPHILS # 0.6 10^3/uL (1.5-8.5)
[2020-03-27 07:17] LABS: BLOOD UREA NITROGEN 7 MG/DL (7-18); CARBON DIOXIDE LEVEL 31 MEQ/L (21-32); CHLORIDE LEVEL 110 MEQ/L (98-107); CREATININE FOR GFR 0.79 MG/DL (0.55-1.30); GLOMERULAR FILTRATION RATE > 60.0 (>39); GLUCOSE, FASTING 158 MG/DL (70-100); POTASSIUM SERUM 3.6 MEQ/L (3.5-5.1); SODIUM LEVEL 145 MEQ/L (136-145)
[2020-03-27] MEDS: TIOTROPIUM INHALER/CAPSULE (SPIRIVA) INH SCH (07:55)
[2020-03-27] MEDS: ADVAIR HFA 230/21MCG INHALER INH SCH ×2 (07:55→19:43)
[2020-03-27] MEDS: PANTOPRAZOLE 40MG VIAL (C9113 PER 1) IV SCH (09:45)
[2020-03-27] MEDS: SIMETHICONE 80 MG CHEW TAB PO SCH ×4 (09:45→22:08)
[2020-03-27] MEDS: MOM 30ML SUSPENSION UDC PO SCH (09:45)
[2020-03-27] MEDS: GABAPENTIN 300 MG CAP PO SCH ×3 (09:46→22:07)
[2020-03-27] MEDS: NICOTINE 14 MG/24 HR TRANSDERMAL TD SCH (09:47)
[2020-03-27] MEDS: CARVedilol 3.125 MG TAB PO SCH ×2 (09:47→22:07)
[2020-03-27] MEDS: HumaLOG INSULIN (NovoLOG) PER UNIT SC SCH ×4 (09:48→21:00)
[2020-03-27] MEDS: MORPHINE 4 MG/ML 1ML VIAL/SYRINGE (J2270) IV PRN (10:13)
--- NOTE | 2020-03-27 12:27 | IPNPDOC ---
Text Note Date of Service The patient was seen on 03/27/20. NOTE Patient continues to report of abdominal discomfort despite having a large am ount of stool output from her ostomy (with 1 dose of MiraLAX). She continues to have air and liquid stool in her ostomy. Been placed on soft diet which she reports she only heat a few-ites because she still has pain and is mildly nauseated. No longer retching. She is afebrile. On examination Patient looks mildly and comfortable Abdomen still looks relatively flat, mild vague tenderness at the midline also at the suprapubic area. She has a small parastomal hernia that is reducible and nontender over the area Impression and plan Small bowel obstruction versus ileus Parastomal hernia, reducible Chronic abdominal pain On further clarify whether her symptoms, she reports that she does have chronic pain but the pain got worse about a week or 2 weeks prior to her presentation this she came in. It is not clear whether the current pain she is reporting is at her baseline. She still requiring narcotics from this. She has a fentanyl patch and at home is taking Vicodin at 10-25 mg tablet 3 times a day reportedly for her back pain and sometimes for abdominal pain. I think the narcotic certain ly can cause slowing of her gastrointestinal tract. I would just continue to follow her course. There is no evidence of obstruction on the small bowel follow-through and her abdomen relatively flat and nondistended and her ostomy is functioning. Have advance her diet to regular diet. VS,Fishbone, I+O VS, Fishbone, I+O Laboratory Tests 03/27/20 06:25 Vital Signs Date Time Temp Pulse Resp B/P (MAP) Pulse Ox O2 Delivery O2 Flow Rate FiO2 03/27/20 10:23 18 03/27/20 09:47 86 134/64 03/27/20 06:00 98.1 94 Room Air I&O- Last 24 Hours up to 6 AM 03/27/20 06:00 Intake Total 1360 ml Output Total 2705 ml Balance -1345 ml MILLICENT CERVANTES MD Mar 27, 2020 12:27
[2020-03-27 14:00] VITALS: BP 107/52
--- NOTE | 2020-03-27 14:48 | IPNPDOC ---
Date Seen The patient was seen on 03/27/20. Progress Note SUBJECTIVE: patient was seen and examined at bedside this morning. Doing well. Tolerating soft diet without difficulties. denies fevers, chills, n/v/d. She still endorses some mild to moderate abdominal pain, but otherwise improvement in discomfort noted. OBJECTIVE PHYSICAL EXAMINATION: VITAL SIGNS: Please see below. General: NAD, comfortable HEENT: PERRLA, EOMI, sclerae clear Neck: supple, normal ROM, no JVD Resp: lungs CTAB, no wheeze, no rales, no crackles CVS: RRR, normal S1, S2, no murmurs Abdo: R ostomy bag distended with gas. Bilious stool at bottom. Large midline laparotomy scar. Soft, no rebound tenderness. Extremities: no edema, pulses 2+MSK: no joint deformities, normal ROM Neuro: no focal neuro deficits, moving all 4 extremities Psych: calm, cooperative, AAO x 3 LABORATORY DATA, IMAGING STUDIES, MICROBIOLOGY: Please see below. Ct abdomen/pelvis: 1. Right lower quadrant ostomy site with a hernia. 2. Distention of multiple loops of bowel especially in the lower abdomen and pelvis with air-fluid levels and multiple bubbles of air suggesting obstruction. For further verification oral contrast might be considered to follow through the bowel with sequential CTs. 3. Probable removal of the urinary bladder with an ileal conduit that is markedly distended within the pelvis. 4. There is a swirled appearance of the mesenteric vessels and this can be seen with volvulus and obstruction and representing a changes 2019 exam. SBFT: Prelim report reviewed: no stricture or obstruction, no extravasation seen. 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 General surgery consulted (Dr. Dave). PROBLEMS: # Ileus - multiple abdominal surgeries, recent repair of parastomal hernia - completed SBFT study - prelim report reviewed, no evidence for obstruction, stricture - general surgery following (Dr. Dave) - tolerated soft diet well. Spoke to Dr. Dave, advanced her diet to regular - she takes chronic opiates for back pain and as per Dr. Daev's note this likely contributed to slowing down her bowel transit. - no evidence for SBO at this time. # Recurrent UTI - chronic suprapubic moura - WBC wnl, afebrile - last changed 03/04/20 - last culture from 03/20/20 - Proteus > 100k - ceftriaxone #Low WBC/Hgb - dilutional effect, stopped IVF - on regular diet. - repeat labs in am. # HTN - BP normotensive # DM2 - ISS - soft diet #COPD - oxygenating well on RA - home inhalers: advair, spiriva # Peripheral neuropathy - gabapentin at home - resume # Hammer toe - s/p OR 03/15/20 - weekly dressing changes - wound care while admitted, heel boots - Dr. Mccallum consulted for f/u, discussed # Deconditioning - PT/OT #HCV, cirrhosis - stable # Hypokalemia - replace - repeat BMP # Chronic back pain, hip pain -Follows [facility] and pain management - fentanyl patch - DC IV morphine. DVT ppx: lovenox VS, I&O, 24H, Fishbone Vital Signs/I&O Vital Signs Date Time Temp Pulse Resp B/P (MAP) Pulse Ox O2 Delivery O2 Flow Rate FiO2 03/27/20 10:23 18 03/27/20 09:47 86 134/64 03/27/20 06:00 98.1 94 Room Air I&O- Last 24 Hours up to 6 AM 03/27/20 06:00 Intake Total 1360 ml Output Total 2705 ml Balance -1345 ml Laboratory Data 24H LABS Laboratory Tests 2 03/26/20 17:00: Bedside Glucose (Misc Panel) 119H 03/27/20 06:25: Immature Granulocyte % (Auto) 0.4, Neutrophils (%) (Auto) 22.3L, Lymphocytes (%) (Auto) 55.7H, Monocytes (%) (Auto) 17.5H, Eosinophils (%) (Auto) 3.7H, Basophils (%) (Auto) 0.4, Neutrophils # (Auto) 0.6L, Lymphocytes # (Auto) 1.4L, Monocytes # (Auto) 0.4, Eosinophils # (Auto) 0.1, Basophils # (Auto) 0.0, Nucleated Red Blood Cells % (auto) 0.0, Anion Gap 4L, Glomerular Filtration Rate > 60.0, Calcium Level 8.0L 03/27/20 11:36: Bedside Glucose (Misc Panel) 201H CBC/BMP Laboratory Tests 03/27/20 06:25 FERNANDO CAMPA MD Mar 27, 2020 14:48
[2020-03-27] MEDS: NORCO, ANEXSIA 5/325MG TABLET (HYDROcodone/ACETAMINOPHEN) PO PRN ×2 (16:11→22:05)
[2020-03-27 22:00] VITALS: BP 112/54
[2020-03-27] MEDS: MIRTAZAPINE 15 MG TAB PO SCH (22:04)
[2020-03-27] MEDS: fentaNYL 12 MCG/HR PATCH TD SCH (22:06)
[2020-03-27] MEDS: FENTANYL REMOVAL DOCUMENTATION MISC XX SCH (22:06)
[2020-03-27] MEDS: SIMVASTATIN 20 MG TAB PO SCH (22:07)
[2020-03-27] MEDS: traZODone 100 MG TAB PO SCH (22:08)
[2020-03-28] MEDS: ONDANSETRON 4MG/2ML VIAL IV SCH ×4 (01:10→20:48)
[2020-03-28 06:00] VITALS: BP 133/61
[2020-03-28 06:50] LABS: BASO % 0.4 % (0.0-1.0); EOS # 0.1 10^3/uL (0.0-0.5); EOS % 3.8 % (0.0-3.0); HEMATOCRIT 24.3 % (36.0-47.0); HEMOGLOBIN 8.4 g/dl (12.0-15.5); LYMPH # 1.3 10^3/uL (1.5-5.0); LYMPH % 53.8 % (24.0-44.0); MEAN CORPUSCULAR HGB CONC 34.6 g/dl (32.0-36.5); MEAN CORPUSCULAR VOLUME 89.7 fl (80.0-96.0); MONO # 0.3 10^3/uL (0.0-0.8); MONO % 13.8 % (0.0-5.0); NEUTROPHILS % 27.8 % (36.0-66.0); PLATELET COUNT, AUTOMATED 112 10^3/uL (150-450); RED BLOOD COUNT 2.71 10^6/uL (4.00-5.40); WHITE BLOOD COUNT 2.4 10^3/uL (4.0-10.0)
[2020-03-28 07:12] LABS: BLOOD UREA NITROGEN 6 MG/DL (7-18); CALCIUM LEVEL 7.7 MG/DL (8.8-10.2); CARBON DIOXIDE LEVEL 30 MEQ/L (21-32); CHLORIDE LEVEL 108 MEQ/L (98-107); GLOMERULAR FILTRATION RATE > 60.0 (>39); GLUCOSE, FASTING 213 MG/DL (70-100); POTASSIUM SERUM 3.8 MEQ/L (3.5-5.1); SODIUM LEVEL 144 MEQ/L (136-145)
[2020-03-28 07:32] LABS: NEUTROPHILS # 0.7 10^3/uL (1.5-8.5)
[2020-03-28] MEDS: PANTOPRAZOLE 40MG VIAL (C9113 PER 1) IV SCH (07:50)
[2020-03-28] MEDS: MOM 30ML SUSPENSION UDC PO SCH (07:50)
[2020-03-28] MEDS: NICOTINE 14 MG/24 HR TRANSDERMAL TD SCH (07:51)
[2020-03-28] MEDS: SIMETHICONE 80 MG CHEW TAB PO SCH ×4 (07:51→20:51)
[2020-03-28] MEDS: GABAPENTIN 300 MG CAP PO SCH ×3 (07:52→20:52)
[2020-03-28] MEDS: CARVedilol 3.125 MG TAB PO SCH ×2 (07:52→20:51)
[2020-03-28] MEDS: HumaLOG INSULIN (NovoLOG) PER UNIT SC SCH ×4 (07:53→21:00)
[2020-03-28] MEDS: ADVAIR HFA 230/21MCG INHALER INH SCH ×2 (08:02→19:39)
[2020-03-28] MEDS: TIOTROPIUM INHALER/CAPSULE (SPIRIVA) INH SCH (08:02)
[2020-03-28] MEDS: BACLOFEN 10 MG TAB PO PRN ×2 (08:13→15:07)
[2020-03-28] MEDS: NORCO, ANEXSIA 5/325MG TABLET (HYDROcodone/ACETAMINOPHEN) PO PRN ×2 (08:14→15:07)
[2020-03-28 14:00] VITALS: BP 145/67
--- NOTE | 2020-03-28 15:11 | IPNPDOC ---
Date Seen The patient was seen on 03/28/20. Progress Note SUBJECTIVE: patient was seen and examined at bedside this morning. Doing well. Tolerating soft diet without difficulties. denies fevers, chills, n/v/d. She still endorses some mild to moderate abdominal pain, but otherwise improvement in discomfort noted. OBJECTIVE PHYSICAL EXAMINATION: VITAL SIGNS: Please see below. General: NAD, comfortable HEENT: PERRLA, EOMI, sclerae clear Neck: supple, normal ROM, no JVD Resp: lungs CTAB, no wheeze, no rales, no crackles CVS: RRR, normal S1, S2, no murmurs Abdo: R ostomy bag distended with gas. Bilious stool at bottom. Large midline laparotomy scar. Soft, no rebound tenderness. Extremities: no edema, pulses 2+MSK: no joint deformities, normal ROM Neuro: no focal neuro deficits, moving all 4 extremities Psych: calm, cooperative, AAO x 3 LABORATORY DATA, IMAGING STUDIES, MICROBIOLOGY: Please see below. Ct abdomen/pelvis: 1. Right lower quadrant ostomy site with a hernia. 2. Distention of multiple loops of bowel especially in the lower abdomen and pelvis with air-fluid levels and multiple bubbles of air suggesting obstruction. For further verification oral contrast might be considered to follow through the bowel with sequential CTs. 3. Probable removal of the urinary bladder with an ileal conduit that is markedly distended within the pelvis. 4. There is a swirled appearance of the mesenteric vessels and this can be seen with volvulus and obstruction and representing a changes 2019 exam. SBFT: Prelim report reviewed: no stricture or obstruction, no extravasation seen. 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 General surgery consulted (Dr. Dave). PROBLEMS: # Ileus - multiple abdominal surgeries, recent repair of parastomal hernia - completed SBFT study - prelim report reviewed, no evidence for obstruction, stricture - general surgery following (Dr. Dave) - tolerating regular diet well - she takes chronic opiates for back pain and as per Dr. Dave's note this likely contributed to slowing down her bowel transit. - no evidence for SBO at this time. # Recurrent UTI - chronic suprapubic moura - WBC wnl, afebrile - last changed 03/04/20 - last culture from 03/20/20 - Proteus > 100k - ceftriaxone #Low WBC/Hgb - suspect dilutional effect, stopped IVF - check fecal occult blood from stoma bag contents - on regular diet. - repeat labs in am. # HTN - BP normotensive # DM2 - ISS - soft diet #COPD - oxygenating well on RA - home inhalers: advair, spiriva # Peripheral neuropathy - gabapentin at home - resume # Hammer toe - s/p OR 03/15/20 - weekly dressing changes - wound care while admitted, heel boots - Dr. Mccallum consulted for f/u, discussed # Deconditioning - PT/OT - patient has been performing well with PT. Will require rehab prior to return home - consider ARU eval #HCV, cirrhosis - stable # Hypokalemia - replace - repeat BMP # Chronic back pain, hip pain -Follows with [facility] and pain management - fentanyl patch - DC IV morphine. DVT ppx: lovenox Dispo: not safe for DC home per PT. Will likely require rehab. Consider ARU eval. VS, I&O, 24H, Fishbone Vital Signs/I&O Vital Signs Date Time Temp Pulse Resp B/P (MAP) Pulse Ox O2 Delivery O2 Flow Rate FiO2 03/28/20 08:44 18 Room Air 03/28/20 07:52 79 133/61 03/28/20 06:00 97.4 98 I&O- Last 24 Hours up to 6 AM 03/28/20 06:00 Intake Total 1500 ml Output Total 700 ml Balance 800 ml Laboratory Data 24H LABS Laboratory Tests 2 03/27/20 16:33: Bedside Glucose (Misc Panel) 150H 03/27/20 21:53: Bedside Glucose (Misc Panel) 208H 03/28/20 06:30: Immature Granulocyte % (Auto) 0.4, Neutrophils (%) (Auto) 27.8L, Lymphocytes (%) (Auto) 53.8H, Monocytes (%) (Auto) 13.8H, Eosinophils (%) (Auto) 3.8H, Basophils (%) (Auto) 0.4, Neutrophils # (Auto) 0.7L, Lymphocytes # (Auto) 1.3L, Monocytes # (Auto) 0.3, Eosinophils # (Auto) 0.1, Basophils # (Auto) 0.0, Nucleated Red Blood Cells % (auto) 0.0, Anion Gap 6L, Glomerular Filtration Rate > 60.0, Calcium Level 7.7L 03/28/20 11:20: Bedside Glucose (Misc Panel) 150H CBC/BMP Laboratory Tests 03/28/20 06:30 FERNANDO CAMPA MD Mar 28, 2020 15:11
[2020-03-28] MEDS: traZODone 100 MG TAB PO SCH (20:51)
[2020-03-28] MEDS: SIMVASTATIN 20 MG TAB PO SCH (20:52)
[2020-03-28] MEDS: MIRTAZAPINE 15 MG TAB PO SCH (20:52)
[2020-03-28 22:00] VITALS: BP 131/60
[2020-03-29] MEDS: ONDANSETRON 4MG/2ML VIAL IV SCH ×5 (02:11→22:21)
[2020-03-29 06:00] VITALS: BP 140/65
[2020-03-29 06:28] LABS: BASO % 0.3 % (0.0-1.0); EOS # 0.1 10^3/uL (0.0-0.5); EOS % 3.8 % (0.0-3.0); HEMATOCRIT 28.1 % (36.0-47.0); HEMOGLOBIN 9.7 g/dl (12.0-15.5); LYMPH # 1.5 10^3/uL (1.5-5.0); LYMPH % 50.3 % (24.0-44.0); MEAN CORPUSCULAR HEMOGLOBIN 31.6 pg (27.0-33.0); MEAN CORPUSCULAR HGB CONC 34.5 g/dl (32.0-36.5); MEAN CORPUSCULAR VOLUME 91.5 fl (80.0-96.0); MONO # 0.4 10^3/uL (0.0-0.8); MONO % 12.8 % (0.0-5.0); NEUTROPHILS % 32.5 % (36.0-66.0); PLATELET COUNT, AUTOMATED 124 10^3/uL (150-450); RED BLOOD COUNT 3.07 10^6/uL (4.00-5.40); WHITE BLOOD COUNT 2.9 10^3/uL (4.0-10.0)
[2020-03-29 06:55] LABS: BLOOD UREA NITROGEN 7 MG/DL (7-18); CALCIUM LEVEL 7.9 MG/DL (8.8-10.2); CARBON DIOXIDE LEVEL 28 MEQ/L (21-32); CHLORIDE LEVEL 109 MEQ/L (98-107); CREATININE FOR GFR 0.91 MG/DL (0.55-1.30); GLOMERULAR FILTRATION RATE > 60.0 (>39); GLUCOSE, FASTING 295 MG/DL (70-100); POTASSIUM SERUM 3.7 MEQ/L (3.5-5.1); SODIUM LEVEL 141 MEQ/L (136-145)
[2020-03-29 06:58] LABS: NEUTROPHILS # 0.9 10^3/uL (1.5-8.5)
[2020-03-29] MEDS: ADVAIR HFA 230/21MCG INHALER INH SCH ×2 (07:32→20:29)
[2020-03-29] MEDS: TIOTROPIUM INHALER/CAPSULE (SPIRIVA) INH SCH (07:32)
[2020-03-29] MEDS: CARVedilol 3.125 MG TAB PO SCH ×2 (07:58→20:58)
[2020-03-29] MEDS: HumaLOG INSULIN (NovoLOG) PER UNIT SC SCH ×4 (07:58→20:58)
[2020-03-29] MEDS: MOM 30ML SUSPENSION UDC PO SCH (07:58)
[2020-03-29] MEDS: PANTOPRAZOLE 40MG VIAL (C9113 PER 1) IV SCH (07:58)
[2020-03-29] MEDS: GABAPENTIN 300 MG CAP PO SCH ×3 (07:59→20:58)
[2020-03-29] MEDS: SIMETHICONE 80 MG CHEW TAB PO SCH ×4 (07:59→20:58)
[2020-03-29] MEDS: NICOTINE 14 MG/24 HR TRANSDERMAL TD SCH (07:59)
[2020-03-29] MEDS: NORCO, ANEXSIA 5/325MG TABLET (HYDROcodone/ACETAMINOPHEN) PO PRN (13:34)
[2020-03-29 14:00] VITALS: BP 167/76
--- NOTE | 2020-03-29 14:31 | IPNPDOC ---
Date Seen The patient was seen on 03/29/20. Progress Note SUBJECTIVE: patient was seen and examined at bedside this morning. Doing well. Tolerating regular without difficulties. denies fevers, chills, n/v/d. Reports increase in abdominal pain today. OBJECTIVE PHYSICAL EXAMINATION: VITAL SIGNS: Please see below. General: NAD, comfortable HEENT: PERRLA, EOMI, sclerae clear Neck: supple, normal ROM, no JVD Resp: lungs CTAB, no wheeze, no rales, no crackles CVS: RRR, normal S1, S2, no murmurs Abdo: R ostomy bag distended with gas. Bilious stool at bottom. Large midline laparotomy scar. Soft, no rebound tenderness. Extremities: no edema, pulses 2+MSK: no joint deformities, normal ROM Neuro: no focal neuro deficits, moving all 4 extremities Psych: calm, cooperative, AAO x 3 LABORATORY DATA, IMAGING STUDIES, MICROBIOLOGY: Please see below. 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 General surgery consulted (Dr. Dave). PROBLEMS: # Ileus - multiple abdominal surgeries, recent repair of parastomal hernia - completed SBFT study - prelim report reviewed, no evidence for obstruction, stricture - general surgery following (Dr. Dave) - tolerating regular diet well - she takes chronic opiates for back pain and as per Dr. Dave's note this likely contributed to slowing down her bowel transit. - given increase in pain today, will obtain KUB # UTI due to chronic moura cath - chronic suprapubic moura - WBC wnl, afebrile - last changed 03/04/20 - last culture from 03/20/20 - Proteus > 100k - ceftriaxone #Pancytopenia - suspect dilutional effect, stopped IVF - FOBT negative - on regular diet. - improving # HTN - BP normotensive # DM2 - ISS - soft diet #COPD - oxygenating well on RA - home inhalers: advair, spiriva # Peripheral neuropathy - gabapentin at home - resume # Hammer toe - s/p OR 03/15/20 - weekly dressing changes - wound care while admitted, heel boots - Dr. Mccallum consulted for f/u, discussed # Deconditioning - PT/OT - patient has been performing well with PT. Will require rehab prior to return home #HCV, cirrhosis - stable # Chronic back pain, hip pain -Follows with [facility] and pain management - fentanyl patch - DC IV morphine. DVT ppx: lovenox Dispo: not safe for DC home per PT. Requires rehab. SW informed. VS, I&O, 24H, Fishbone Vital Signs/I&O Vital Signs Date Time Temp Pulse Resp B/P (MAP) Pulse Ox O2 Delivery O2 Flow Rate FiO2 03/29/20 14:04 18 03/29/20 07:58 72 140/65 03/29/20 06:00 97.2 97 Room Air I&O- Last 24 Hours up to 6 AM 03/29/20 05:59 Intake Total 2160 ml Output Total 3250 ml Balance -1090 ml Laboratory Data 24H LABS Laboratory Tests 2 03/28/20 16:35: Bedside Glucose (Misc Panel) 194H 03/28/20 20:29: Bedside Glucose (Misc Panel) 188H 03/29/20 05:47: Anion Gap 4L, Glomerular Filtration Rate > 60.0, Calcium Level 7.9L 03/29/20 05:48: Immature Granulocyte % (Auto) 0.3, Neutrophils (%) (Auto) 32.5L, Lymphocytes (%) (Auto) 50.3H, Monocytes (%) (Auto) 12.8H, Eosinophils (%) (Auto) 3.8H, Basophils (%) (Auto) 0.3, Neutrophils # (Auto) 0.9L, Lymphocytes # (Auto) 1.5, Monocytes # (Auto) 0.4, Eosinophils # (Auto) 0.1, Basophils # (Auto) 0.0, Nucleated Red Blood Cells % (auto) 0.0 03/29/20 06:50: Bedside Glucose (Misc Panel) 327H 03/29/20 11:58: Bedside Glucose (Misc Panel) 204H CBC/BMP Laboratory Tests 03/29/20 05:47 03/29/20 05:48 Microbiology Microbiology 03/28/20 Stool Occult Blood ([place]) - Final, Complete FERNANDO CAMPA MD Mar 29, 2020 14:31
[2020-03-29] MEDS: MIRTAZAPINE 15 MG TAB PO SCH (20:57)
[2020-03-29] MEDS: traZODone 100 MG TAB PO SCH (20:57)
[2020-03-29] MEDS: SIMVASTATIN 20 MG TAB PO SCH (20:58)
[2020-03-29 22:00] VITALS: BP 163/84
[2020-03-30] MEDS: ONDANSETRON 4MG/2ML VIAL IV SCH ×4 (02:49→19:54)
[2020-03-30 06:00] VITALS: BP 159/81
[2020-03-30] MEDS: TIOTROPIUM INHALER/CAPSULE (SPIRIVA) INH SCH (07:18)
[2020-03-30] MEDS: ADVAIR HFA 230/21MCG INHALER INH SCH ×2 (07:19→19:51)
[2020-03-30 07:25] LABS: BASO % 0.4 % (0.0-1.0); EOS # 0.1 10^3/uL (0.0-0.5); HEMOGLOBIN 9.7 g/dl (12.0-15.5); LYMPH # 1.3 10^3/uL (1.5-5.0); LYMPH % 52.4 % (24.0-44.0); MEAN CORPUSCULAR HEMOGLOBIN 30.7 pg (27.0-33.0); MEAN CORPUSCULAR HGB CONC 33.4 g/dl (32.0-36.5); MEAN CORPUSCULAR VOLUME 91.8 fl (80.0-96.0); MONO # 0.4 10^3/uL (0.0-0.8); MONO % 15.7 % (0.0-5.0); NEUTROPHILS % 27.1 % (36.0-66.0); PLATELET COUNT, AUTOMATED 144 10^3/uL (150-450); RED BLOOD COUNT 3.16 10^6/uL (4.00-5.40); WHITE BLOOD COUNT 2.5 10^3/uL (4.0-10.0)
[2020-03-30 07:49] LABS: BLOOD UREA NITROGEN 10 MG/DL (7-18); CALCIUM LEVEL 8.4 MG/DL (8.8-10.2); CARBON DIOXIDE LEVEL 31 MEQ/L (21-32); CHLORIDE LEVEL 108 MEQ/L (98-107); CREATININE FOR GFR 0.85 MG/DL (0.55-1.30); GLOMERULAR FILTRATION RATE > 60.0 (>39); GLUCOSE, FASTING 176 MG/DL (70-100); POTASSIUM SERUM 4.5 MEQ/L (3.5-5.1); SODIUM LEVEL 144 MEQ/L (136-145)
[2020-03-30 08:13] LABS: NEUTROPHILS # 0.7 10^3/uL (1.5-8.5)
[2020-03-30] MEDS: HumaLOG INSULIN (NovoLOG) PER UNIT SC SCH ×4 (08:28→20:12)
[2020-03-30] MEDS: GABAPENTIN 300 MG CAP PO SCH ×3 (08:29→19:55)
[2020-03-30] MEDS: CARVedilol 3.125 MG TAB PO SCH ×2 (08:29→19:55)
[2020-03-30] MEDS: MOM 30ML SUSPENSION UDC PO SCH (08:29)
[2020-03-30] MEDS: PANTOPRAZOLE 40MG VIAL (C9113 PER 1) IV SCH (08:29)
[2020-03-30] MEDS: NICOTINE 14 MG/24 HR TRANSDERMAL TD SCH (08:30)
[2020-03-30] MEDS: SIMETHICONE 80 MG CHEW TAB PO SCH ×4 (08:30→19:54)
[2020-03-30] MEDS: NORCO, ANEXSIA 5/325MG TABLET (HYDROcodone/ACETAMINOPHEN) PO PRN ×2 (10:07→19:56)
--- NOTE | 2020-03-30 10:54 | IPNPDOC ---
Date Seen The patient was seen on 03/30/20. Progress Note SUBJECTIVE: patient was seen and examined at bedside this morning. Doing well. Tolerating regular without difficulties. denies fevers, chills, n/v/d. Reports increase in abdominal pain today. OBJECTIVE PHYSICAL EXAMINATION: VITAL SIGNS: Please see below. General: NAD, comfortable HEENT: PERRLA, EOMI, sclerae clear Neck: supple, normal ROM, no JVD Resp: lungs CTAB, no wheeze, no rales, no crackles CVS: RRR, normal S1, S2, no murmurs Abdo: R ostomy bag distended with gas. Bilious stool at bottom. Large midline laparotomy scar. Soft, no rebound tenderness. Extremities: no edema, pulses 2+MSK: no joint deformities, normal ROM Neuro: no focal neuro deficits, moving all 4 extremities Psych: calm, cooperative, AAO x 3 LABORATORY DATA, IMAGING STUDIES, MICROBIOLOGY: Please see below. 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 General surgery consulted (Dr. Dave). PROBLEMS: # Ileus - multiple abdominal surgeries, recent repair of parastomal hernia - completed SBFT study - prelim report reviewed, no evidence for obstruction, stricture - general surgery following (Dr. Dave) - tolerating regular diet well - she takes chronic opiates for back pain and as per Dr. Dave's note this likely contributed to slowing down her bowel transit. - F/u KUB # UTI due to chronic moura cath - chronic suprapubic moura - WBC wnl, afebrile - last changed 03/04/20 - last culture from 03/20/20 - Proteus > 100k - completed 5 days ceftriaxone #Pancytopenia - suspect dilutional effect, stopped IVF - FOBT negative - check manual diff, retic count, LDH, coags # HTN - BP normotensive # DM2 - ISS - soft diet #COPD - oxygenating well on RA - home inhalers: advair, spiriva # Peripheral neuropathy - gabapentin at home - resume # Hammer toe - s/p OR 03/15/20 - weekly dressing changes - wound care while admitted, heel boots - Dr. Mccallum consulted # Deconditioning - PT/OT - Will require rehab prior to return home #HCV, cirrhosis - stable # Chronic back pain, hip pain -Follows with [facility] and pain management - fentanyl patch - DC IV morphine. DVT ppx: lovenox Dispo: not safe for DC home per PT. Requires rehab. SW informed. VS, I&O, 24H, Fishbone Vital Signs/I&O Vital Signs Date Time Temp Pulse Resp B/P (MAP) Pulse Ox O2 Delivery O2 Flow Rate FiO2 03/30/20 10:07 16 03/30/20 08:29 70 159/81 03/30/20 06:00 99.0 98 Room Air I&O- Last 24 Hours up to 6 AM 03/30/20 06:00 Intake Total 2280 ml Output Total 3550 ml Balance -1270 ml Laboratory Data 24H LABS Laboratory Tests 2 03/29/20 11:58: Bedside Glucose (Misc Panel) 204H 03/29/20 16:58: Bedside Glucose (Misc Panel) 129H 03/29/20 20:47: Bedside Glucose (Misc Panel) 174H 03/30/20 06:34: Immature Granulocyte % (Auto) 0.4, Neutrophils (%) (Auto) 27.1L, Lymphocytes (%) (Auto) 52.4H, Monocytes (%) (Auto) 15.7H, Eosinophils (%) (Auto) 4.0H, Basophils (%) (Auto) 0.4, Neutrophils # (Auto) 0.7L, Lymphocytes # (Auto) 1.3L, Monocytes # (Auto) 0.4, Eosinophils # (Auto) 0.1, Basophils # (Auto) 0.0, Nucleated Red Blood Cells % (auto) 0.8H, Anion Gap 5L, Glomerular Filtration Rate > 60.0, Calcium Level 8.4L CBC/BMP Laboratory Tests 03/30/20 06:34 Microbiology Microbiology 03/28/20 Stool Occult Blood ([place]) - Final, Complete FERNANDO CAMPA MD Mar 30, 2020 10:54
[2020-03-30 11:34] LABS: LDH LACTATE DEHYDROGENASE 141 U/L (84-246)
--- NOTE | 2020-03-30 11:57 | REPVR ---
PROCEDURE INFORMATION: Exam: CT Head Without Contrast Exam date and time: 03/30/2020 11:39 AM Age: 75 years old Clinical indication: Pain; Other: Lle weakness TECHNIQUE: Imaging protocol: Computed tomography of the head without contrast. Radiation optimization: All CT scans at this facility use at least one of these dose optimization techniques: automated exposure control; mA and/or kV adjustment per patient size (includes targeted exams where dose is matched to clinical indication); or iterative reconstruction. COMPARISON: CT Head without contrast 07/01/2017 3:39 PM FINDINGS: Brain: There are small foci of low attenuation in the basal ganglia bilaterally related to chronic lacunar infarctions. Ventricles: The ventricles and CSF spaces are proportionately enlarged. Bones/joints: No acute fracture. Paranasal sinuses: Visualized sinuses are unremarkable. No fluid levels. Mastoid air cells: Visualized mastoid air cells are well aerated. Soft tissues: Unremarkable. IMPRESSION: No acute intracranial abnormality. Electronically signed by: Grant Arevalo On 03/30/2020 11:57:31 AM
[2020-03-30 14:00] VITALS: BP 135/68
[2020-03-30] MEDS: SIMVASTATIN 20 MG TAB PO SCH (19:55)
[2020-03-30] MEDS: MIRTAZAPINE 15 MG TAB PO SCH (19:55)
[2020-03-30] MEDS: fentaNYL 12 MCG/HR PATCH TD SCH (19:57)
[2020-03-30 20:00] VITALS: BP 149/65
[2020-03-30] MEDS: traZODone 100 MG TAB PO SCH (20:12)
[2020-03-31] MEDS: ONDANSETRON 4MG/2ML VIAL IV SCH ×4 (02:50→21:03)
[2020-03-31 06:00] VITALS: BP 147/66
[2020-03-31] MEDS: TIOTROPIUM INHALER/CAPSULE (SPIRIVA) INH SCH (07:26)
[2020-03-31] MEDS: ADVAIR HFA 230/21MCG INHALER INH SCH ×2 (07:26→18:00)
--- NOTE | 2020-03-31 07:35 | IPNPDOC ---
Date Seen The patient was seen on 03/31/20. Progress Note SUBJECTIVE: patient was seen and examined at bedside this morning. Doing well. Tolerating regular without difficulties. denies fevers, chills, n/v/d. Abdo pain diminished. OBJECTIVE PHYSICAL EXAMINATION: VITAL SIGNS: Please see below. General: NAD, comfortable HEENT: PERRLA, EOMI, sclerae clear Neck: supple, normal ROM, no JVD Resp: lungs CTAB, no wheeze, no rales, no crackles CVS: RRR, normal S1, S2, no murmurs Abdo: R ostomy bag distended with gas. Formed stool. Large midline laparotomy scar. Soft, no rebound tenderness. Extremities: no edema, pulses 2+ MSK: no joint deformities, normal ROM Neuro: no focal neuro deficits, moving all 4 extremities Psych: calm, cooperative, AAO x 3 LABORATORY DATA, IMAGING STUDIES, MICROBIOLOGY: Please see below. 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 General surgery consulted (Dr. Dave). PROBLEMS: # Ileus - multiple abdominal surgeries, recent repair of parastomal hernia - completed SBFT study - prelim report reviewed, no evidence for obstruction, stricture - general surgery following (Dr. Dave) - tolerating regular diet well - she takes chronic opiates for back pain and as per Dr. Dave's note this likely contributed to slowing down her bowel transit. - F/u KUB - discussed residual pain in abdomen with Dr. Dave, patient has anterior abominal wall pain from extensive intraabdominal surgical hx # UTI due to chronic moura cath - chronic suprapubic moura - last changed 03/04/20 - last culture from 03/20/20 - Proteus > 100k - completed 5 days ceftriaxone #Pancytopenia - FOBT negative - check manual diff, retic count - LDH wnl - retic count wnl - hematology consult placed, Dr. Lin aware. # HTN - BP normotensive # DM2 - ISS - soft diet #COPD - oxygenating well on RA - home inhalers: advair, spiriva # Peripheral neuropathy - gabapentin at home - resume # Hammer toe - s/p OR 03/15/20 - weekly dressing changes - wound care while admitted, heel boots - Dr. Mccallum consulted # Deconditioning - PT/OT - Will require rehab prior to return home #HCV, cirrhosis - stable # Chronic back pain, hip pain -Follows [facility] and pain management - fentanyl patch - DC IV morphine. DVT ppx: lovenox Dispo: not safe for DC home per PT. Requires rehab. SW informed. VS, I&O, 24H, Fishbone Vital Signs/I&O Vital Signs Date Time Temp Pulse Resp B/P (MAP) Pulse Ox O2 Delivery O2 Flow Rate FiO2 03/31/20 06:00 97.8 75 18 147/66 (93) 97 Room Air I&O- Last 24 Hours up to 6 AM 03/31/20 06:00 Intake Total 2290 ml Output Total 3520 ml Balance -1230 ml Laboratory Data 24H LABS Laboratory Tests 2 03/30/20 11:57: Bedside Glucose (Misc Panel) 254H 03/30/20 16:50: Bedside Glucose (Misc Panel) 169H 03/30/20 20:11: Bedside Glucose (Misc Panel) 174H 03/31/20 06:17: Bedside Glucose (Misc Panel) 198H Microbiology Microbiology 03/28/20 Stool Occult Blood ([place]) - Final, Complete FERNANDO CAMPA MD Mar 31, 2020 07:35
[2020-03-31] MEDS: PANTOPRAZOLE 40MG VIAL (C9113 PER 1) IV SCH (08:29)
[2020-03-31] MEDS: HumaLOG INSULIN (NovoLOG) PER UNIT SC SCH ×4 (08:31→20:59)
[2020-03-31] MEDS: MOM 30ML SUSPENSION UDC PO SCH (08:31)
[2020-03-31] MEDS: GABAPENTIN 300 MG CAP PO SCH ×3 (08:32→20:57)
[2020-03-31] MEDS: SIMETHICONE 80 MG CHEW TAB PO SCH ×4 (08:32→20:58)
[2020-03-31] MEDS: CARVedilol 3.125 MG TAB PO SCH ×2 (08:33→21:00)
[2020-03-31] MEDS: NICOTINE 14 MG/24 HR TRANSDERMAL TD SCH (08:34)
[2020-03-31] MEDS: cloNIDine HCL 0.2 MG/24 HR PATCH TOP SCH (08:44)
[2020-03-31 10:15] LABS: BASO % 0.4 % (0.0-1.0); EOS # 0.1 10^3/uL (0.0-0.5); EOS % 4.6 % (0.0-3.0); HEMATOCRIT 29.3 % (36.0-47.0); HEMOGLOBIN 9.8 g/dl (12.0-15.5); LYMPH # 1.2 10^3/uL (1.5-5.0); LYMPH % 51.5 % (24.0-44.0); MEAN CORPUSCULAR HEMOGLOBIN 30.7 pg (27.0-33.0); MEAN CORPUSCULAR HGB CONC 33.4 g/dl (32.0-36.5); MEAN CORPUSCULAR VOLUME 91.8 fl (80.0-96.0); MONO # 0.4 10^3/uL (0.0-0.8); MONO % 17.3 % (0.0-5.0); NEUTROPHILS % 25.8 % (36.0-66.0); PLATELET COUNT, AUTOMATED 127 10^3/uL (150-450); RED BLOOD COUNT 3.19 10^6/uL (4.00-5.40); WHITE BLOOD COUNT 2.4 10^3/uL (4.0-10.0)
[2020-03-31 10:24] LABS: INR 0.95; PROTHROMBIN TIME 12.8 SECONDS (12.5-14.3)
[2020-03-31 10:25] LABS: PARTIAL THROMBOPLASTIN TIME 23.4 SECONDS (24.2-38.5)
[2020-03-31 10:44] LABS: CALCIUM LEVEL 8.5 MG/DL (8.8-10.2); CREATININE FOR GFR 0.99 MG/DL (0.55-1.30); GLOMERULAR FILTRATION RATE 58.4 (>39); POTASSIUM SERUM 4.6 MEQ/L (3.5-5.1)
[2020-03-31 10:52] LABS: NEUTROPHILS # 0.6 10^3/uL (1.5-8.5)
[2020-03-31] MEDS: ENOXAPARIN 40MG/0.4ML SYRINGE (J1650 PER 10MG) SC SCH (11:46)
[2020-03-31] MEDS: NORCO, ANEXSIA 5/325MG TABLET (HYDROcodone/ACETAMINOPHEN) PO PRN ×2 (11:47→20:59)
[2020-03-31 14:00] VITALS: BP 118/70
--- NOTE | 2020-03-31 16:09 | CR.PDOC ---
General Date of Consultation: Mar 31, 2020 Referring Provider: FERNANDO CAMPA MD Primary Care Physician: ROME SHERMAN PA-C Attending Physician: FERNANDO CAMPA MD Consultation REASON FOR CONSULTATION/CHIEF COMPLAINT: Pancytopenia HISTORY OF PRESENT ILLNESS: Ms. Allyssa Kamara is a 75-year-old woman currently admitted for abdominal pain deemed secondary to ileus. Abdominal pain has improved with medical measures. No surgical intervention done so far on this admission. Ms. Kamara was noted to be pancytopenic since 03/26/2020 which was the fifth day of hospitalization. The patient has had no fevers. She had lost weight because she could not eat 7 days prior to admission and up to the third day of admission. Since then she has been eating and she thinks that her weight has stabilized. She reports no bleeding symptoms other than easy bruising on upper extremities, likely related to blood drawing. On review of Ms. Kamara's records, she has had pancytopenia during admissions but on outpatient followups, her blood counts have normalized. As recently as 01/04/2020 and 03/08/2020, her blood counts were completely normal. She reports recurrent UTIs for which she follows up with Dr. Walton of urology. Otherwise, no recurring infections. There was note of splenomegaly in her past medical history, but a CT scan abdomen and pelvis on this admission 03/21/2020 showed a normal appearing spleen. However, on August 20, 2018, a CT abdomen and pelvis showed splenomegaly. The spleen measured 17 cm on a 08/16/2018 CT abdomen. ALLERGIES: Please see below. HOME MEDICATIONS: Please see below. PAST MEDICAL HISTORY: Hypertension. Hyperlipidemia. Hepatitis C. liver biopsy 1999 according to PCP notes showed stage II fibrosis. COPD. Depression. Reflux. Rectovaginal fistula. Osteoporosis. Chronic kidney disease. Peripheral neuropathy. PAST SURGICAL HISTORY: Bilateral mastectomy for fibrocystic disease. Cholecystectomy. X2. D&C's. Colostomy. Appendectomy. TH/BSO. Hernia repair. Suprapubic catheter placement. FAMILY HISTORY: Her mother had cancer but she is not sure what kind of cancer. SOCIAL HISTORY: Former smoker, quit smoking 2 years ago. Disabled. . REVIEW OF SYSTEMS: Reports abdominal pains, nausea and vomiting, currently improved. Reports weight loss. Reports no significant bleeding issues other than easy bruising on upper extremities. Reports recurrent UTIs with no other recurring infections. Rest of review of systems negative. PHYSICAL EXAMINATION: VITAL SIGNS: Please see below. GENERAL APPEARANCE: Lying in bed, comfortable, not in distress, communicative. HEENT: Pinkish conjunctiva, anicteric sclerae. Moist oral mucosa. No palpable cervical nodes. RESPIRATORY: Fair air entry. No rales and rhonchi, no wheeze. CARDIOVASCULAR: S1, S2 regular. ABDOMEN: Soft, no guarding. Ostomy bag on the right. EXTREMITIES: Moves all extremities spontaneously. Brace on right lower extremity. No cyanosis. NEUROLOGICAL: Alert, oriented 3. PSYCHIATRIC: Cooperative. No anxiety. LABORATORY DATA: Please see below. ASSESSMENT/PLAN: 75 year old with Pancytopenia noted to be acute, likely related to acute dorina nt/inflammation related to ileus. Patient has also been noted previously to have splenomegaly on CT scans from 03/2019, although no splenomegaly on this admission's CT scan. Expect pancytopenia to improve when symptoms of ileus resolve although sometimes blood count recovery can lag behind recovery from inflammation. In the meantime, continue monitoring blood counts. Will obtain peripheral smear review, iron studies, B12, folate. If blood counts should continue to decrease, please ask interventional radiology to do a bone marrow aspiration and biopsy. Blood transfusion should be considered for significant anemia and thrombocytopenia. Will arrange a follow-up appointment with me once patient is discharged. Thank you for referring Ms. Allyssa Kamara. Vital Signs/I&O Vital Signs Date Time Temp Pulse Resp B/P (MAP) Pulse Ox O2 Delivery O2 Flow Rate FiO2 03/31/20 12:33 18 03/31/20 11:47 Room Air 03/31/20 08:33 83 122/62 03/31/20 06:00 97.8 97 I&O- Last 24 Hours up to 6 AM 03/31/20 05:59 Intake Total 2050 ml Output Total 3270 ml Balance -1220 ml Laboratory Data Labs 24H Laboratory Tests 2 03/30/20 16:50: Bedside Glucose (Misc Panel) 169H 03/30/20 20:11: Bedside Glucose (Misc Panel) 174H 03/31/20 06:17: Bedside Glucose (Misc Panel) 198H 03/31/20 09:45: Immature Granulocyte % (Auto) 0.4, Neutrophils (%) (Auto) 25.8L, Lymphocytes (%) (Auto) 51.5H, Monocytes (%) (Auto) 17.3H, Eosinophils (%) (Auto) 4.6H, Basophils (%) (Auto) 0.4, Neutrophils # (Auto) 0.6L, Lymphocytes # (Auto) 1.2L, Monocytes # (Auto) 0.4, Eosinophils # (Auto) 0.1, Basophils # (Auto) 0.0, Reticulocyte # (auto) 149.6H, Nucleated Red Blood Cells % (auto) 0.0, Percent Reticulocyte Co unt 4.8H, Reticulocyte Hemoglobin Equivalent 34.5, Prothrombin Time 12.8, Prothromb Time International Ratio 0.95, Activated Partial Thromboplast Time 23.4L, Anion Gap 5L, Glomerular Filtration Rate 58.4, Calcium Level 8.5L 03/31/20 11:41: Bedside Glucose (Misc Panel) 191H CBC/BMP Laboratory Tests 03/31/20 09:45 Microbiology Microbiology 03/28/20 Stool Occult Blood ([place]) - Final, Complete Allergies Coded Allergies: Contrast Media (Verified Allergy, Severe, ANAPHYLAXIS, 03/08/20) SOB, HIVES Penicillins (Verified Allergy, Intermediate, HIVES, 03/08/20) Sulfa (Sulfonamide Antibiotics) (Verified Allergy, Mild, ITCHING, 03/08/20) sulfamethoxazole (Verified Allergy, Mild, ITCHING, 03/08/20) trimethoprim (Verified Allergy, Mild, ITCHING, 03/08/20) Quinolones (Verified Allergy, Unknown, RED STREAKS UP FOREARM AND ITCHING, 03/08/20) amitriptyline (Verified Adverse Reaction, Intermediate, PASSES OUT, 03/08/20) aspirin (Verified Adverse Reaction, Mild, TUNNEL/BLURRY VISION, 03/08/20) Home Medications Scheduled Carvedilol (Carvedilol) 3.125 Mg Tablet, 3.125 MG PO BID, (Reported) Clopidogrel Bisulfate (Clopidogrel) 75 Mg Tablet, 75 MG PO DAILY, (Reported) Fentanyl (Fentanyl) 12 Mcg Patch.td72, 12 MCG TD Q3RD, (Reported) Ferrous Sulfate (Ferrous Sulfate) 325 Mg Tab, 325 MG PO DAILY, (Reported) Folic Acid (Folic Acid) 1 Mg Tab, 1 MG PO BID, (Reported) Gabapentin (Gabapentin) 600 Mg Tablet, 600 MG PO TID, (Reported) Glimepiride (Glimepiride) 2 Mg Tablet, 1 MG PO DAILY, (Reported) Lisinopril (Lisinopril) 2.5 Mg Tablet, 2.5 MG PO DAILY, (Reported) Methenamine Hippurate (Methenamine Hippurate) 1 Gm Tab, 1 GRAM PO BID, (Reported) Mirtazapine (Remeron) 30 Mg Tablet, 30 MG PO QHS, (Reported) Montelukast Sodium (Montelukast Sodium) 10 Mg Tablet, 10 MG PO QHS, (Reported) Omeprazole (Omeprazole) 20 Mg Cap, 20 MG PO BID, (Reported) Oxybutynin Chloride (Oxybutynin Chloride ER) 10 Mg Tab.er.24, 10 MG PO BID, (Reported) Salmeterol/Fluticasone (Advair 500-50 Diskus) 1 Each Blst.w.dev, 1 PUFF INH BID, (Reported) Simvastatin (Simvastatin) 20 Mg Tab, 20 MG PO QHS, (Reported) Sulfamethoxazole/Trimethoprim (Bactrim Ds Tablet) 1 Each Tablet, 1 TAB PO BID, (Reported) HAS NOT STARTED YET; TAKES BENADRYL BEFOREHAND Tiotropium [place] (Spiriva) 18 Mcg Cap.w.dev, 1 INHALATION INH DAILY, ( Reported) Trazodone HCl (Trazodone HCl) 100 Mg Tablet, 200 MG PO QHS, (Reported) Varenicline (Chantix) 1 Mg Tablet, 1 MG PO BID, (Reported) Scheduled PRN Albuterol Sulfate (Proair Hfa) 8.5 Gm Hfa.aer.ad, 2 PUFF INH Q4H PRN for SHORTNESS OF BREATH, (Reported) Baclofen (Baclofen) 10 Mg Tab, 10 MG PO TID PRN for MUSCLE SPASMS, (Reported) Diphenhydramine HCl (Benadryl) 25 Mg Capsule, 25 MG PO Q6H PRN for ITCHING, (Reported) CAN TAKE SECOND CAPSULE PER DOSE Hydrocodone/Acetaminophen (Hydrocodone-Acetamin 10-325 mg) 1 Tab Tab, 1 TAB PO TID PRN for PAIN, (Reported) MARY NATION MD Mar 31, 2020 16:09
[2020-03-31] MEDS: traZODone 100 MG TAB PO SCH (20:58)
[2020-03-31] MEDS: SIMVASTATIN 20 MG TAB PO SCH (20:58)
[2020-03-31] MEDS: MIRTAZAPINE 15 MG TAB PO SCH (20:58)
[2020-03-31 22:00] VITALS: BP 139/62
[2020-04-01] MEDS: ONDANSETRON 4MG/2ML VIAL IV SCH ×3 (02:00→14:00)
[2020-04-01 06:00] VITALS: BP 134/62
[2020-04-01 06:33] LABS: BASO % 0.4 % (0.0-1.0); EOS # 0.1 10^3/uL (0.0-0.5); EOS % 3.8 % (0.0-3.0); HEMATOCRIT 30.5 % (36.0-47.0); HEMOGLOBIN 10.3 g/dl (12.0-15.5); LYMPH # 1.2 10^3/uL (1.5-5.0); LYMPH % 44.7 % (24.0-44.0); MEAN CORPUSCULAR HEMOGLOBIN 31.1 pg (27.0-33.0); MEAN CORPUSCULAR HGB CONC 33.8 g/dl (32.0-36.5); MEAN CORPUSCULAR VOLUME 92.1 fl (80.0-96.0); MONO # 0.5 10^3/uL (0.0-0.8); MONO % 20.5 % (0.0-5.0); NEUTROPHILS % 30.6 % (36.0-66.0); PLATELET COUNT, AUTOMATED 156 10^3/uL (150-450); RED BLOOD COUNT 3.31 10^6/uL (4.00-5.40); WHITE BLOOD COUNT 2.6 10^3/uL (4.0-10.0)
[2020-04-01 06:41] LABS: NEUTROPHILS # 0.8 10^3/uL (1.5-8.5)
[2020-04-01 06:57] LABS: HEMATOCRIT 30.3 % (36.0-47.0)
[2020-04-01 06:59] LABS: PERCENT SATURATION 20.3 % (13.2-45.0)
[2020-04-01 07:02] LABS: ALBUMIN 2.9 GM/DL (3.2-5.2); BILIRUBIN,TOTAL 0.4 MG/DL (0.2-1.0); CALCIUM LEVEL 8.6 MG/DL (8.8-10.2); CREATININE FOR GFR 1.16 MG/DL (0.55-1.30); GLOMERULAR FILTRATION RATE 48.6 (>39); MAGNESIUM LEVEL 2.1 MG/DL (1.8-2.4); POTASSIUM SERUM 4.4 MEQ/L (3.5-5.1); TOTAL PROTEIN 6.2 GM/DL (6.4-8.2)
[2020-04-01] MEDS: TIOTROPIUM INHALER/CAPSULE (SPIRIVA) INH SCH (07:51)
[2020-04-01] MEDS: ADVAIR HFA 230/21MCG INHALER INH SCH (07:51)
[2020-04-01] MEDS: HumaLOG INSULIN (NovoLOG) PER UNIT SC SCH ×2 (07:58→12:33)
[2020-04-01] MEDS: PANTOPRAZOLE 40MG VIAL (C9113 PER 1) IV SCH (08:03)
[2020-04-01] MEDS: ENOXAPARIN 40MG/0.4ML SYRINGE (J1650 PER 10MG) SC SCH (08:03)
[2020-04-01] MEDS: NICOTINE 14 MG/24 HR TRANSDERMAL TD SCH (08:04)
[2020-04-01] MEDS: NORCO, ANEXSIA 5/325MG TABLET (HYDROcodone/ACETAMINOPHEN) PO PRN (08:04)
[2020-04-01] MEDS: GABAPENTIN 300 MG CAP PO SCH ×2 (08:04→16:12)
[2020-04-01] MEDS: MOM 30ML SUSPENSION UDC PO SCH (08:04)
[2020-04-01 08:05] VITALS: BP 134/62
[2020-04-01] MEDS: CARVedilol 3.125 MG TAB PO SCH (08:05)
[2020-04-01] MEDS: SIMETHICONE 80 MG CHEW TAB PO SCH ×2 (08:05→12:33)
[2020-04-01 11:14] LABS: FOLATE 10.9 NG/ML (>5.4)
[2020-04-01] MEDS ORDERED: MOM30SS2 PO (14:29)
[2020-04-01] MEDS ORDERED: SIME80TA PO (14:29)
[2020-04-01] MEDS ORDERED: CLON0.2D6 TOP (14:29)
--- NOTE | 2020-04-01 14:29 | DS.PDOC ---
Discharge Summary General Date of Admission Mar 21, 2020 at 21:37 Date of Discharge 04/01/20 Primary Care Physician: Esequiel Bartlett MD Attending Physician: FERNANDO CAMPA MD Discharge Summary PROCEDURES PERFORMED DURING STAY: [None]. ADMITTING DIAGNOSES: small bowel obstruction UTI acute hyponatremia secondary to dehydraiton chronic back pain hypertension Type 2 diabetes mellitus Tobacco use COPD peripheral neuropathy hammertoe s/p bunion surgery chronic deconditioning with frequent falls GERD DISCHARGE DIAGNOSES: small bowel obstruction UTI acute hyponatremia secondary to dehydraiton chronic back pain hypertension Type 2 diabetes mellitus Tobacco use COPD peripheral neuropathy hammertoe s/p bunion surgery chronic deconditioning with frequent falls GERD COMPLICATIONS/CHIEF COMPLAINT: Bowel Obstruction. 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 She had recent right foot bunion and hammertoe surgery on 03/15/20 and every since then she has decreased appetite, n/v, worsening abdominal pain (8/10 on pain scale, cramping in character, constant, not relieved with anything, worsened by movement or with vomiting). Patient was seen in the ER 03/20/10 , diagnosed with UTI and discharged home with abx. UCx was sent at that time and results are pending. She returned for worsening symptoms. Other associated symptoms include occasional SOB, nonproductive cough, chills, lethargy, decreased appetite, decreased PO intake of food and fluid. She has not eaten in 4 days, only taking sips of water. She denies chest pain, fever, sick contacts, recent travel. In the ER, VS showed BP 190's systolic, otherwise wnl. She appeared ill, vomiting and dry heaving. Labs showed sodium low at 128, WBC wnl. CT abd/pelvis showed distention of multiple loops of bowel especially in the lower abdomen and pelvis with air-fluid levels and multiple bubbles of air suggesting ob struction. Questionable volvulus was further evaluated on imaging by surgery (Dr. Dave) but this was decided to be not likely. It was recommended to place NG tube and surgery would follow after admission. Patient was admitted for bowel obstruction, UTI. HOSPITAL COURSE: # Ileus - multiple abdominal surgeries, recent repair of parastomal hernia - completed SBFT study - prelim report reviewed, no evidence for obstruction, stricture - general surgery following (Dr. Dave) - tolerating regular diet well - she takes chronic opiates for back pain and as per Dr. Dave's note this likely contributed to slowing down her bowel transit. - F/u KUB - discussed residual pain in abdomen with Dr. Dave, patient has anterior abdominal wall pain from extensive intraabdominal surgical hx - will follow up in general surgery clinic # UTI due to chronic moura cath - chronic suprapubic moura - last changed 03/04/20 - last culture from 03/20/20 - Proteus > 100k - completed 5 days ceftriaxone #Pancytopenia - FOBT negative - check manual diff, retic count - LDH wnl - hematology consult placed, seen by Dr. Lin - no worsening in pancytopenia while admitted, Hgb slowly trending up - outpatient hematology follow up # HTN - BP normotensive # DM2 - ISS - soft diet #COPD - oxygenating well on RA - home inhalers: advair, spiriva # Peripheral neuropathy - gabapentin at home - resume # Hammer toe - s/p OR 03/15/20 - weekly dressing changes - wound care while admitted, heel boots - Dr. Mccallum will continue to follow patient outpatient # Deconditioning - PT/OT - patient was cleared from PT standpoint to return home with services #HCV, cirrhosis - stable # Chronic back pain, hip pain -Follows with [facility] and pain management - fentanyl patch - DC IV morphine. DISCHARGE MEDICATIONS: Please see below. ALLERGIES: Please see below. PHYSICAL EXAMINATION ON DISCHARGE: VITAL SIGNS: Please see below. General: NAD, comfortable HEENT: PERRLA, EOMI, sclerae clear Neck: supple, normal ROM, no JVD Resp: lungs CTAB, no wheeze, no rales, no crackles CVS: RRR, normal S1, S2, no murmurs Abdo: R ostomy bag distended with gas. Formed stool. Large midline laparotomy scar. Soft, no rebound tenderness. Extremities: no edema, pulses 2+ MSK: no joint deformities, normal ROM Neuro: no focal neuro deficits, moving all 4 extremities Psych: calm, cooperative, AAO x 3 LABORATORY DATA: Please see below. IMAGING: CT abdomen/pelvis wo contrast (03/21/20) IMPRESSION: 1. Right lower quadrant ostomy site with a hernia. 2. Distention of multiple loops of bowel especially in the lower abdomen and pelvis with air-fluid levels and multiple bubbles of air suggesting obstruction. For further verification oral contrast might be considered to follow through the bowel with sequential CTs. 3. Probable removal of the urinary bladder with an ileal conduit that is markedly distended within the pelvis. 4. There is a swirled appearance of the mesenteric vessels and this can be seen with volvulus and obstruction and representing a changes [address] brain wo contrast (03/30/20) Brain: There are small foci of low attenuation in the basal ganglia bilaterally related to chronic lacunar infarctions. Ventricles: The ventricles and CSF spaces are proportionately enlarged. Bones/joints: No acute fracture. Paranasal sinuses: Visualized sinuses are unremarkable. No fluid levels. Mastoid air cells: Visualized mastoid air cells are well aerated. Soft tissues: Unremarkable. IMPRESSION: No acute intracranial abnormality. PROGNOSIS: good ACTIVITY: [As tolerated]. DIET: consistent carbohydrate DISCHARGE PLAN: follow up with PCP in 3-5 days, General Surgery within 2 weeks and Hematology within 1-2 weeks. DISPOSITION: DC home with services DISCHARGE INSTRUCTIONS: 1. Follow up with PCP in 3-5 days 2. Follow up with General Surgery - Dr. Dave in 2 weeks 3. Follow up with Oncology - Dr. Lin within 2 weeks 4. Follow up with Dr. Mccallum in 3-5 days. 5. Please take your medications as prescribed. 6. If you develop fevers, chills, chest pain, severe abdominal pain, nausea, vomiting or diarrhea, or otherwise worsening of your symptoms, please call 911 or return to the emergency department. ITEMS TO FOLLOWUP ON ON OUTPATIENT: 1. CBC with differential to assess stable pancytopenia DISCHARGE CONDITION: [Stable]. TIME SPENT ON DISCHARGE: Greater than 30 minutes. Vital Signs/I&Os Vital Signs Date Time Temp Pulse Resp B/P (MAP) Pulse Ox O2 Delivery O2 Flow Rate FiO2 04/01/20 08:34 18 Room Air 04/01/20 08:05 84 134/62 04/01/20 06:00 97.6 97 I&O- Last 24 Hours up to 6 AM 04/01/20 05:59 Intake Total 3300 ml Output Total 2950 ml Balance 350 ml Laboratory Data Labs 24H Laboratory Tests 2 03/31/20 17:10: Bedside Glucose (Misc Panel) 235H 03/31/20 19:56: Bedside Glucose (Misc Panel) 206H 04/01/20 06:06: Immature Granulocyte % (Auto) 0.0, Neutrophils (%) (Auto) 30.6L, Lymphocytes (%) (Auto) 44.7H, Monocytes (%) (Auto) 20.5H, Eosinophils (%) (Auto) 3.8H, Basophils (%) (Auto) 0.4, Neutrophils # (Auto) 0.8L, Lymphocytes # (Auto) 1.2L, Monocytes # (Auto) 0.5, Eosinophils # (Auto) 0.1, Basophils # (Auto) 0.0, Nucle ated Red Blood Cells % (auto) 0.0, Differential Slide Review Report, Peripheral Blood Smear Path Consult PERIPHERAL SMEAR, Anion Gap 4L, Glomerular Filtration Rate 48.6, Calcium Level 8.6L, Magnesium Level 2.1, Iron Level 44L, Total Iron Binding Capacity 217L, Transferrin % Saturation 20.3, Total Bilirubin 0.4, Aspartate Amino Transf (AST/SGOT) 13, Alanine Aminotransferase (ALT/SGPT) 24, Alkaline Phosphatase 87, Total Protein 6.2L, Albumin 2.9L, Albumin/Globulin Ratio 0.9L, Vitamin B12 Level 369, Folate 10.9 04/01/20 11:37: Bedside Glucose (Misc Panel) 184H CBC/BMP Laboratory Tests 04/01/20 06:06 FSBS Laboratory Tests Test 03/31/20 17:10 03/31/20 19:56 04/01/20 11:37 Range/Units Bedside Glucose (Misc Panel) 235 206 184 83-110 MG/DL Microbiology Microbiology 03/28/20 Stool Occult Blood ([place]) - Final, Complete Discharge Medications Scheduled Carvedilol (Carvedilol) 3.125 Mg Tablet, 3.125 MG PO BID, (Reported) Clonidine (Clonidine) 0.2 Mg Patch.tdwk, 1 EA TOP Q7D@09 Clopidogrel Bisulfate (Clopidogrel) 75 Mg Tablet, 75 MG PO DAILY, (Reported) Fentanyl (Fentanyl) 12 Mcg Patch.td72, 12 MCG TD Q3RD, (Reported) Ferrous Sulfate (Ferrous Sulfate) 325 Mg Tab, 325 MG PO DAILY, (Reported) Folic Acid (Folic Acid) 1 Mg Tab, 1 MG PO BID, (Reported) Gabapentin (Gabapentin) 600 Mg Tablet, 600 MG PO TID, (Reported) Glimepiride (Glimepiride) 2 Mg Tablet, 1 MG PO DAILY, (Reported) Lisinopril (Lisinopril) 2.5 Mg Tablet, 2.5 MG PO DAILY, (Reported) Magnesium Hydroxide (Milk of Magnesia) 400 Mg/5 Ml Oral.susp, 30 ML PO DAILY Methenamine Hippurate (Methenamine Hippurate) 1 Gm Tab, 1 GRAM PO BID, (Reported) Mirtazapine (Remeron) 30 Mg Tablet, 30 MG PO QHS, (Reported) Montelukast Sodium (Montelukast Sodium) 10 Mg Tablet, 10 MG PO QHS, (Reported) Omeprazole (Omeprazole) 20 Mg Cap, 20 MG PO BID, (Reported) Oxybutynin Chloride (Oxybutynin Chloride ER) 10 Mg Tab.er.24, 10 MG PO BID, (Reported) Salmeterol/Fluticasone (Advair 500-50 Diskus) 1 Each Blst.w.dev, 1 PUFF INH BID, (Reported) Simethicone (Simethicone) 80 Mg Tab.chew, 120 MG PO QID Simvastatin (Simvastatin) 20 Mg Tab, 20 MG PO QHS, (Reported) Sulfamethoxazole/Trimethoprim (Bactrim Ds Tablet) 1 Each Tablet, 1 TAB PO BID, (Reported) HAS NOT STARTED YET; TAKES BENADRYL BEFOREHAND Tiotropium [place] (Spiriva) 18 Mcg Cap.w.dev, 1 INHALATION INH DAILY, (Reported) Trazodone HCl (Trazodone HCl) 100 Mg Tablet, 200 MG PO QHS, (Reported) Varenicline (Chantix) 1 Mg Tablet, 1 MG PO BID, (Reported) Scheduled PRN Albuterol Sulfate (Proair Hfa) 8.5 Gm Hfa.aer.ad, 2 PUFF INH Q4H PRN for SHORTNESS OF BREATH, (Reported) Baclofen (Baclofen) 10 Mg Tab, 10 MG PO TID PRN for MUSCLE SPASMS, (Reported) Diphenhydramine HCl (Benadryl) 25 Mg Capsule, 25 MG PO Q6H PRN for ITCHING, (Reported) CAN TAKE SECOND CAPSULE PER DOSE Hydrocodone/Acetaminophen (Hydrocodone-Acetamin 5-325 mg) 1 Each Tablet, 1 TAB PO Q4HP PRN for MILD/MODERATE PAIN (PS 1-7) Allergies Coded Allergies: Contrast Media (Verified Allergy, Severe, ANAPHYLAXIS, 03/08/20) SOB, HIVES Penicillins (Verified Allergy, Intermediate, HIVES, 03/08/20) Sulfa (Sulfonamide Antibiotics) (Verified Allergy, Mild, ITCHING, 03/08/20) sulfamethoxazole (Verified Allergy, Mild, ITCHING, 03/08/20) trimethoprim (Verified Allergy, Mild, ITCHING, 03/08/20) Quinolones (Verified Allergy, Unknown, RED STREAKS UP FOREARM AND ITCHING, 03/08/20) amitriptyline (Verified Adverse Reaction, Intermediate, PASSES OUT, 03/08/20) aspirin (Verified Adverse Reaction, Mild, TUNNEL/BLURRY VISION, 03/08/20) FERNANDO CAMPA MD Apr 01, 2020 14:29
[2020-04-01] MEDS ORDERED: HYDR-3715 PO (15:00)
--- NOTE | 2020-04-11 08:27 | REP ---
SMALL BOWEL FOLLOW-THROUGH The procedure was performed under the direct supervision of Dr. Beauchamp. The images were reviewed with Dr. Beauchamp. The mirror inspector film shows no organomegaly or pathological masses. The intestinal gas pattern is nonspecific. There are multiple surgical clips and bowel sutures noted throughout the abdomen. There is a suprapubic catheter in place. A 50/50 solution of Gastrografin and water was administered and the barium column was followed through the small bowel to the level of the terminal ileum. Small bowel transit time was approximately 1 hour. The bowel was normal in course and caliber. There was no transition to suggest a partial small bowel obstruction. There was contrast in a loop of small bowel lateral to the cecum, which corresponds to bowel in a hernia seen on a previous CT scan dated 03/21/2020. There is no evidence of extravasation. IMPRESSION: Gastrografin small bowel follow-through within normal limits. There is no evidence of stricture or obstruction. There is no evidence of extravasation. 0.8 minutes of fluoroscopy time was utilized for this procedure. [facility]
--- NOTE | 2020-04-11 08:33 | REP ---
KUB: 3-VIEWS PRESENTED HISTORY: Abdomen pain. COMPARISON: Abdominal films 03/23/2020. FINDINGS: There is evidence of a cystoscopy catheter in the pelvis. A left hip arthroplasty is seen. There are surgical clips scattered in the abdomen. There are air filled loops of large bowel in the central abdomen without pathologic distention. Psoas margin and flank stripes are intact. No evidence of free air. IMPRESSION: Air filled colonic loops. Postoperative changes. No evidence of obstruction. [facility]
== END 2020-04-01 16:30 | disposition home or self-care (01) | DRG 699 ==
LOC: EDBD 17:40 → M ED 17:40 → EEVIPCON 21:37 → M ED INP 21:37 → ENRESERV 21:48 → M PCU 22:48 → M MS5PR 03-26 18:15
PROVIDERS: ADMIT Internal Medicine; ATTEND Family Medicine
DX: T83.518A Infection and inflammatory reaction due to other urinary catheter, initial encounter (principal); K56.609 Unspecified intestinal obstruction, unspecified as to partial versus complete obstruction; E87.1 Hypo-osmolality and hyponatremia; N39.0 Urinary tract infection, site not specified; K43.3 Parastomal hernia with obstruction, without gangrene; D61.818 Other pancytopenia; E11.51 Type 2 diabetes mellitus with diabetic peripheral angiopathy without gangrene; Z79.899 Other long term (current) drug therapy; Z91.041 Radiographic dye allergy status; Z88.0 Allergy status to penicillin; Z88.2 Allergy status to sulfonamides; Z88.6 Allergy status to analgesic agent; Z88.8 Allergy status to other drugs, medicaments and biological substances; J44.9 Chronic obstructive pulmonary disease, unspecified; B18.2 Chronic viral hepatitis C; I12.9 Hypertensive chronic kidney disease with stage 1 through stage 4 chronic kidney disease, or unspecified chronic kidney disease; F17.200 Nicotine dependence, unspecified, uncomplicated; K21.9 Gastro-esophageal reflux disease without esophagitis; E78.5 Hyperlipidemia, unspecified; G47.00 Insomnia, unspecified; F32.9 Major depressive disorder, single episode, unspecified; M81.0 Age-related osteoporosis without current pathological fracture; N18.9 Chronic kidney disease, unspecified; M19.90 Unspecified osteoarthritis, unspecified site; Z90.13 Acquired absence of bilateral breasts and nipples; Z96.642 Presence of left artificial hip joint; R29.6 Repeated falls; Z93.3 Colostomy status; Y84.6 Urinary catheterization as the cause of abnormal reaction of the patient, or of later complication, without mention of misadventure at the time of the procedure

== ENCOUNTER → 2020-04-11 | Outpatient (REF) | payer MEDICARE, MEDICAID ==
[~2020-04-11] MED LIST changes: +BENA25CA4 PO; +CLON0.2D6 TOP; +GABA600T4 PO; +HYDR-3715 PO; +LISI2.5T2 PO; +MOM30SS2 PO; +OXYB10TA23 PO; +PROAAER10 INH; +REME30TA PO; +SIME80TA PO; +VARE1TA PO; +[UNRECOGNIZED DRUG - SUPPLY] TOP
[2020-04-11 17:30] LABS: BASO % 0.5 % (0.0-1.0); EOS # 0.1 10^3/uL (0.0-0.5); EOS % 1.9 % (0.0-3.0); HEMATOCRIT 31.9 % (36.0-47.0); HEMOGLOBIN 10.9 g/dl (12.0-15.5); LYMPH # 1.9 10^3/uL (1.5-5.0); LYMPH % 43.1 % (24.0-44.0); MEAN CORPUSCULAR HEMOGLOBIN 30.4 pg (27.0-33.0); MEAN CORPUSCULAR HGB CONC 34.2 g/dl (32.0-36.5); MEAN CORPUSCULAR VOLUME 88.9 fl (80.0-96.0); MONO # 1.4 10^3/uL (0.0-0.8); MONO % 32.9 % (0.0-5.0); NEUTROPHILS % 21.4 % (36.0-66.0); PLATELET COUNT, AUTOMATED 201 10^3/uL (150-450); RED BLOOD COUNT 3.59 10^6/uL (4.00-5.40); WHITE BLOOD COUNT 4.3 10^3/uL (4.0-10.0)
[2020-04-11 18:22] LABS: NEUTROPHILS # 0.9 10^3/uL (1.5-8.5)
== END ==
LOC: M SFHCADAM 15:48
PROVIDERS: ATTEND Physician Assistant
DX: D61.818 Other pancytopenia (principal); Z23 Encounter for immunization
CPT/HCPCS: 85025; 90682; G0008; G0463

== ENCOUNTER → 2020-04-18 | Outpatient (REF) | payer MEDICARE, MEDICAID ==
[2020-04-18 14:25] LABS: APPEARANCE, URINE CLOUDY (CLEAR); BACTERIA, URINE AUTO 1+ (NEGATIVE); BILIRUBIN, URINE AUTO NEGATIVE (NEGATIVE); BLOOD, URINE BLOOD 3+ (NEGATIVE); COLOR, URINE AMBER (YELLOW); GLUCOSE, URINE (UA) AUTO NEGATIVE (NEGATIVE); KETONE, URINE AUTO NEGATIVE (NEGATIVE); LEUKOCYTE ESTERASE, URINE AUTO 2+ (NEGATIVE); NITRITE, URINE AUTO NEGATIVE (NEGATIVE); PROTEIN, URINE AUTO 2+ mg/dL (NEGATIVE); RBC, URINE AUTO TNTC /HPF (0-3); RENAL EPITHELIAL CELLS 5 /HPF; SPECIFIC GRAVITY URINE AUTO 1.016 (1.002-1.035); SQUAMOUS EPITHELIAL CELL UR AU 0 /HPF (0-6); UROBILINOGEN, URINE AUTO 0.2 mg/dL (0.0-2.0); WBC, URINE AUTO 108 /HPF (0-3)
== END ==
LOC: M SMT 13:28
PROVIDERS: ATTEND Nurse Practitioner Family
DX: R31.9 Hematuria, unspecified (principal)

== ENCOUNTER 2020-04-19 17:32 | Emergency (ER) | payer MEDICARE, MEDICAID ==
[~2020-04-19] VITALS: Ht 177.8 cm; Wt 79.5 kg
[~2020-04-19 17:32] MED LIST changes: -[UNRECOGNIZED DRUG - SUPPLY] TOP
[2020-04-19] MEDS ORDERED: cefTRIAXone SOD 1 GM in D5W MINI-BAG PLUS 50 ML IV ONE (20:30)
--- NOTE | 2020-04-19 21:15 | REPVR ---
PROCEDURE INFORMATION: Exam: US Nonobstetric Pelvis; Complete Exam date and time: 04/19/2020 8:43 PM Age: 75 years old Clinical indication: Pelvic pain; Prior surgery; Surgery date: 6+ months; Surgery type: S/P hysterectomy (patient believes it was a total hysterectomy); Additional info: Pelvic pressure TECHNIQUE: Imaging protocol: Transabdominal pelvic nonobstetric ultrasound. Complete exam. Real time ultrasound with image documentation. COMPARISON: Pelvis, limited US 05/25/2019 2:06 PM FINDINGS: Uterus/cervix: Status post hysterectomy. Right adnexa: The right ovary is not seen. Left adnexa: The left ovary is not seen. Intraperitoneal space: None. Bladder: There is an empty urinary bladder with limited visualization of the pelvis. IMPRESSION: Grossly negative limited pelvic sonogram status post hysterectomy. Neither ovary is seen. The bladder is empty. Electronically signed by: Lewis Hernandez On 04/19/2020 21:15:05 PM
[2020-04-19] MEDS ORDERED: [UNRECOGNIZED DRUG - SUPPLY] TOP (21:31)
[2020-04-19] MEDS ORDERED: KEFL500C17 PO (21:31)
[2020-04-19 21:43] VITALS: BP 154/71
== END 2020-04-19 21:50 | disposition home or self-care (01) ==
LOC: EDBD 17:32 → M ED 17:32
DX: N39.0 Urinary tract infection, site not specified (principal); L89.152 Pressure ulcer of sacral region, stage 2; I51.9 Heart disease, unspecified; I10 Essential (primary) hypertension; B19.20 Unspecified viral hepatitis C without hepatic coma; Z87.891 Personal history of nicotine dependence; Z79.84 Long term (current) use of oral hypoglycemic drugs; Z79.899 Other long term (current) drug therapy; Z91.041 Radiographic dye allergy status; Z88.0 Allergy status to penicillin; Z88.2 Allergy status to sulfonamides; Z88.8 Allergy status to other drugs, medicaments and biological substances
CPT/HCPCS: 76856; 96365; 99285; J0696

== ENCOUNTER 2020-06-12 22:48 | Inpatient (IN) | payer MEDICARE, MEDICAID ==
[~2020-06-12] VITALS: Ht 177.8 cm; Wt 77.1 kg
[~2020-06-12 22:48] MED LIST changes: +MIRT-60 PO; -MONT10TA4 PO; +MONT5TAB2 PO; -REME30TA PO; +[UNRECOGNIZED DRUG - SUPPLY] TOP
[2020-06-12] MEDS ORDERED: NS 500 ML IV ONE (23:30)
[2020-06-13 00:23] LABS: BASO % 0.4 % (0.0-1.0); EOS % 0.4 % (0.0-3.0); HEMATOCRIT 33.1 % (36.0-47.0); HEMOGLOBIN 11.1 g/dl (12.0-15.5); LYMPH # 0.8 10^3/uL (1.5-5.0); LYMPH % 9.9 % (24.0-44.0); MEAN CORPUSCULAR HEMOGLOBIN 28.6 pg (27.0-33.0); MEAN CORPUSCULAR HGB CONC 33.5 g/dl (32.0-36.5); MEAN CORPUSCULAR VOLUME 85.3 fl (80.0-96.0); MONO % 12.1 % (0.0-5.0); NEUTROPHILS # 6.6 10^3/uL (1.5-8.5); NEUTROPHILS % 76.7 % (36.0-66.0); PLATELET COUNT, AUTOMATED 165 10^3/uL (150-450); RED BLOOD COUNT 3.88 10^6/uL (4.00-5.40); WHITE BLOOD COUNT 8.5 10^3/uL (4.0-10.0)
[2020-06-13 00:33] LABS: INR 1.09; PROTHROMBIN TIME 14.3 SECONDS (12.5-14.3)
[2020-06-13 00:34] LABS: PARTIAL THROMBOPLASTIN TIME 35.4 SECONDS (24.2-38.5)
[2020-06-13 00:54] LABS: ALBUMIN 2.8 GM/DL (3.2-5.2); BILIRUBIN,DIRECT 0.6 MG/DL (0.0-0.2); BILIRUBIN,TOTAL 0.9 MG/DL (0.2-1.0); CALCIUM LEVEL 8.3 MG/DL (8.8-10.2); GLOMERULAR FILTRATION RATE 57.7 (>39); POTASSIUM SERUM 3.8 MEQ/L (3.5-5.1); TOTAL PROTEIN 6.8 GM/DL (6.4-8.2)
[2020-06-13] MEDS ORDERED: cefTRIAXone SOD 2 GM in D5W MINI-BAG PLUS 50 ML IV ONE (02:45)
[2020-06-13] MEDS ORDERED: PANT-23 PO (03:28)
[2020-06-13] MEDS ORDERED: OXYB-54 PO (03:28)
[2020-06-13] MEDS ORDERED: MYRB50TA PO (03:28)
[2020-06-13] MEDS ORDERED: SPIR1CAP INH (03:28)
[2020-06-13] MEDS ORDERED: NORC1TAB5 PO (03:28)
--- NOTE | 2020-06-13 03:57 | REPVR ---
PROCEDURE INFORMATION: Exam: CT Abdomen And Pelvis Without Contrast Exam date and time: 06/13/2020 2:49 AM Age: 75 years old Clinical indication: Condition or disease; Kidney or ureter condition; Other: UTI; Additional info: UTI, sepsis, R/O obstruction TECHNIQUE: Imaging protocol: Computed tomography of the abdomen and pelvis without contrast. Radiation optimization: All CT scans at this facility use at least one of these dose optimization techniques: automated exposure control; mA and/or kV adjustment per patient size (includes targeted exams where dose is matched to clinical indication); or iterative reconstruction. COMPARISON: CT ABD PELVIS W/O CONTRAST 03/21/2020 6:37 PM FINDINGS: Lungs: Small airspace opacities in bilateral lung bases, left larger than right unchanged from prior study likely atelectasis. Liver: Normal. No mass. Gallbladder and bile ducts: Next and status post cholecystectomy. Pancreas: [id number] atrophy of the pancreas. Spleen: Splenic granuloma. Spleen is enlarged measuring about 17.6 mm in craniocaudal direction. Adrenal glands: Normal. No mass. Kidneys and ureters: Stable right simple renal cyst. No hydroureteronephrosis. Mild prominence of the left collecting system and left ureter throughout its course. No obvious stones are visualized given of the beam hardening artifact from the left hip arthroplasty. Stomach and bowel: Right lower quadrant ostomy with periosteal hernia. Status post colonic surgery at the rectosigmoid junction. Postsurgical changes of anastomosis in the left lower abdomen. Moderate fecal loading in the right colon extending into the ostomy site. Appendix: No evidence of appendicitis. Intraperitoneal space: Pre sacral edema and trace fluid in the pelvis. Vasculature: Mild atherosclerosis of the aorta and its branches. Lymph nodes: Unremarkable. No enlarged lymph nodes. Urinary bladder: Suprapubic urinary bladder catheter with partial decompression of the urinary bladder and air within the bladder . Reproductive: Status post hysterectomy. Bones/joints: Left hip arthroplasty limiting evaluation of the pelvis. Diffuse demineralization of the bones with degenerative changes. Soft tissues: Unremarkable. IMPRESSION: Limited study secondary to beam hardening artifact from the left hip arthroplasty surgical hardware. Study is limited in the pelvis. Given limitation of the study no obvious ureteral or urinary bladder stones are seen. Mild left-sided hydroureteronephrosis without any obstructing stones. Urinary bladder is partially decompressed by suprapubic catheter. Air within the urinary bladder likely from suprapubic catheter. Infection should be ruled out by urine culture and the ER. Moderate fecal loading in the right colon at the right ostomy with periosteal hernia. No bowel dilatation or obstruction. Splenomegaly. Multiple postsurgical changes of bowel. Electronically signed by: Anamaria Luo On 06/13/2020 03:57:33 AM
[2020-06-13] MEDS ORDERED: BACLOFEN 10 MG TAB PO PRN (05:00)
[2020-06-13] MEDS ORDERED: ONDANSETRON 4 MG ORAL DISINTEGRATING TAB SL PRN (05:00)
--- NOTE | 2020-06-13 05:36 | HPEPDOC ---
[facility] Medical History & Physical Date of Admission Jun 13, 2020 Date of Service: Jun 13, 2020 Primary Care Physician: ROME SHERMAN PA-C Attending Physician: MARICRUZ BURNHAM MD History and Physical CHIEF COMPLAINT: shortness of breath, abdominal pain HISTORY OF PRESENT ILLNESS: Allyssa Kamara is a 75 YO F with history of COPD, urinary retention (chronic suprapubic catheter), hx colon resection (colostomy in RLQ) who presents to the ED with 1 week lower abdominal pain, subjective fevers, chills, and shortness of breath. She reports her symptoms started with lower abdominal pain, which she normally feels at the ends of each month right before she is scheduled to see urology to have her catheter changed. She is currently scheduled to have her catheter changed at the end of this week. Yesterday, she noticed her urine was "beet red." Her lower abdominal pain has been worsening over the past week to the point where she has lost her appetite and is unable to do as much as she normally does. She also reports feeling short of breath. At home she normally uses her oxygen concentrator when she feels this way and feels better. She has been coughing and producing clear sputum. PAST MEDICAL HISTORY: Hx Hepatitis C s/p treatment, SVR COPD - [facility]. Depression. Insomnia. Hypertension. Hyperlipidemia. Reflux. Hx blockage in colon - s/p complete bowel resection and colostomy. 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 osteoporosis - Dexa 10/2018 - FRAX = 15/4.3. CKD - followed by Nephrology. Pancytopenia. Splenomegaly per CT 02/2015. Fatty Liver per CT 02/2015. Recurrent UTIs secondary to E.Coli secondary to fistula - resistent to Levaquin. chronic pain from osteoarthritis lumbar spine, hips, feet - pain meds managed by [place] [facility]. Peripheral Neuropathy. Lung Nodule on CT chest - F/U CT with no evidence for nodule 04/2016. Urinary retention - CAtheter placed 04/2017 - by Dr. Jimenez - Urology. Ostomy - per Dr. Barr. DM Type 2. Chronic low back pain/left hip pain - managaged by [facility] - On chronic narcotics. Dysphagia - Barium Swallow 03/2019 - showed laryngeal penetration - ST referral made for dietary recommendations. PAST SURGICAL HISTORY: bilateral mastectomy secondary to fibrocystic disease cholecystectomy C section X 2 ovary wedge resection D&C's colostomy - has required mutiple surgeries colostomy revisions - followed by surgeon in [place] bowel obstruction 2007 bowel surgery- resection part of large intestines and small intestines, blockage bowel surgery-fistula between bowel and vagina - appendectomy hysterectomy, total with BSO left hip replacement EGD/Colonoscopy - Diffuse severe inflammation in the rectum - Dr. Barr 05/2015 hernia repair 06/10/16, PAracolostomy hernia repair - Dr. Barr 07/2017 suprapubic placement 08/12/2018 CYSTOSCOPY WITH SUPRAPUBIC CATH CHANGE 09/22/2018 hernia surgery 01/2019 hammer toe 03/2020 SOCIAL HISTORY: Former smoker, quit January 2016, using Chantix Denies alcohol, illicit drugs FAMILY HISTORY: reviewed and noncontributory ALLERGIES: Please see below. REVIEW OF SYSTEMS: Constitutional: Reports fevers, chills, fatigue, and malaise Eyes: No Eye Pain, No Swelling, No Redness, No Foreign Body, No Discharge, No Vision Changes Cardiovascular: No Chest Pain, reports some SOB, No PND, reports Dyspnea on Exertion, No Orthopnea, No Claudication, No Edema, No Palpitations Respiratory: Reports Cough productive of clear sputum, No Wheezing, reports Dyspnea Gastrointestinal: Reports severe lower abdominal pain in the right mid and left lower quadrants. Nausea but no vomiting. No diarrhea or constipation Musculoskeletal: No Arthralgias, No Myalgias, No Joint Swelling, No Joint Stiffness, No Back Pain, No Neck Pain, No Injury History Skin: No Skin Lesions, No Pruritis, No Hair Changes, No Breast/Skin Changes, No Nipple Discharge Neuro: No Weakness, No Numbness, No Paresthesias, No Loss of Consciousness, No Syncope, No Dizziness, No Headache, No Coordination Changes, No Recent Falls Psych: No Anxiety/Panic, No Depression, No Insomnia, No Personality Changes, No Delusions Heme/Lymph: No Bruising, No Bleeding, No Transfusions History, No Lymphadenopathy HOME MEDICATIONS: Please see below. PHYSICAL EXAMINATION: VITAL SIGNS: see below GENERAL: Obese, appears stated age, alert and oriented, in no apparent distress, pleasant and conversant in full sentences. HEENT: PERRL, EOMI, Oral mucous membranes are moist without lesions. Normocephalic, atraumatic NECK: The patient has no noted JVD. No adenopathy is appreciated. No thyromegaly CHEST/LUNGS: Decreased breath sounds bilaterally with no obvious adventitious br eath sounds appreciated. No wheezing. There is no subcutaneous air appreciated. There is no tenderness to the chest wall. HEART:Regular rate and rhythm. No murmurs, rubs, or gallops are appreciated. D istal pulses are 2+. No carotid bruits appreciated. ABDOMEN: Tender to light palpation in the right lower right middle and left lower quadrants. There is a suprapubic catheter in the lower middle quadrant, surrounding area is tender to palpation but no obvious surrounding erythema or irritation. Colostomy is present in the right lower quadrant draining dark green stool EXTREMITIES: Trace lower extremity edema. There is no focal long bone tenderness or deformity. SKIN: The patients skin is warm and dry, without rashes or lesions. PSYCHIATRIC: AAO x 3, normal mood/affect NEUROLOGIC: No obvious focal deficit LABORATORY DATA: See below. IMAGING: CT ABD/PELVIS: IMPRESSION: Limited study secondary to beam hardening artifact from the left hip arthroplasty surgical hardware. Study is limited in the pelvis. Given limitation of the study no obvious ureteral or urinary bladder stones are seen. Mild left-sided hydroureteronephrosis without any obstructing stones. Urinary bladder is partially decompressed by suprapubic catheter. Air within the urinary bladder likely from suprapubic catheter. Infection should be ruled out by urine culture and the ER. Moderate fecal loading in the right colon at the right ostomy with periosteal hernia. No bowel dilatation or obstruction. Splenomegaly. Multiple postsurgical changes of bowel. MICROBIOLOGY: Please see below. ASSESSMENT: This is a 75 YO F with history of urinary retention with chronic suprapubic catheter who presents with 1 week lower abdominal pain, loss of appetite, fevers, chills found to have mild left-sided hydroureteronephrosis without any obstructing stones, febrile and tachycardic concerning for urosepsis. . PLAN: 1. Urosepsis: Likely secondary to infection related to chronic suprapubic urinary catheter -WBC normal but with neutrophilic predominance, tachycardic in 120s, lactic acid normal, blood pressure within normal limits, UA concerning for elevated leuk esterase, WBCs, positive nitrites -Patient has recent history of Proteus growing in urine, sensitive to Rocephin -CT demonstrates Mild left-sided hydroureteronephrosis without any obstructing stones -Will start empiric Rocephin therapy -s/p normal saline 500 mL bolus in the ED -Patient will need to have suprapubic catheter replaced -Recommend consulting urology if there are issues with catheter -Continue home Oxybutynin for now -IV morphine for pain -Zofran for nausea 2. COPD: -Continue home inhalers, Spiriva -Oxygen titration, keep patient 88% to 92% 3. History of CAD: -Patient as prescribed Plavix by Dr. Ramos, unclear whether she is taking as PCP notes unclear. Will continue for now 4. Chronic back pain: -Continue gabapentin, baclofen 5. HTN: -Continue home Coreg, lisinopril 6. Mood disorder: -Continue mirtazapine, trazodone 7. Hyperlipidemia: -Continue home simvastatin 8. GERD: -Continue home pantoprazole 9. Chronic iron deficiency anemia: -Continue home iron supplementation DVT PPX: Lovenox DISPO: Pending clinical improvement Vital Signs Vital Signs Date Time Temp Pulse Resp B/P (MAP) Pulse Ox O2 Delivery O2 Flow Rate FiO2 06/13/20 04:00 98 19 131/64 (86) 97 Room Air 06/13/20 02:15 97.9 Laboratory Data Labs 24H Laboratory Tests 2 06/13/20 00:12: Immature Granulocyte % (Auto) 0.5, Neutrophils (%) (Auto) 76.7H, Lymphocytes (%) (Auto) 9.9L, Monocytes (%) (Auto) 12.1H, Eosinophils (%) (Auto) 0.4, Basophils (%) (Auto) 0.4, Neutrophils # (Auto) 6.6, Lymphocytes # (Auto) 0.8L, Monocytes # (Auto) 1.0H, Eosinophils # (Auto) 0.0, Basophils # (Auto) 0.0, Nucleated Red Blood Cells % (auto) 0.0, Prothrombin Time 14.3H, Prothromb Time International Ratio 1.09, Activated Partial Thromboplast Time 35.4, Anion Gap 8, Glomerular Filtration Rate 57.7, Lactic Acid Level 0.8, Calcium Level 8.3L, Total Bilirubin 0.9, Direct Bilirubin 0.6H, Aspartate Amino Transf (AST/SGOT) 6L, Alanine Aminotransferase (ALT/SGPT) 9L, Alkaline Phosphatase 70, Total Protein 6.8, Albumin 2.8L, Albumin/Globulin Ratio 0.7L, Lipase 56L 06/13/20 01:37: Urine Color YELLOW, Urine Appearance CLOUDYH, Urine pH 6.0, Urine Specific [place] 1.005, Urine Protein 1+H, Urine Glucose (UA) NEGATIVE, Urine Ketones 1+H, Urine Blood 2+H, Urine Nitrite POSITIVEH, Urine Bilirubin NEGATIVE, Urine Urobilinogen 0.2, Urine Leukocyte Esterase 3+H, Urine WBC (Auto) TNTCH, Urine RBC (Auto) 21H, Urine Hyaline Casts (Auto) 0, Urine Bacteria (Auto) 2+H, Urine Squamous Epithelial Cells 0, Urine Transitional Epithelial Cells 1, Urine Amorphous Sediment SMALLH, Urine Mucus (Auto) SMALL, Urine Sperm (Auto) CBC/BMP Laboratory Tests 06/13/20 00:12 Microbiology Microbiology 06/13/20 Urine Culture, Received Pending 06/13/20 Respiratory Virus Panel (PCR) ([place]) - Final, Complete 06/13/20 Blood Culture, Received Pending 06/13/20 Blood Culture, Received Pending Home Medications Scheduled Carvedilol (Carvedilol) 3.125 Mg Tablet, 3.125 MG PO BID Clopidogrel Bisulfate (Clopidogrel) 75 Mg Tablet, 75 MG PO DAILY Fentanyl (Fentanyl) 12 Mcg Patch.td72, 12 MCG TD Q3RD Ferrous Sulfate (Ferrous Sulfate) 325 Mg Tab, 325 MG PO DAILY Folic Acid (Folic Acid) 1 Mg Tab, 1 MG PO BID Gabapentin (Gabapentin) 600 Mg Tablet, 600 MG PO TID Glimepiride (Glimepiride) 2 Mg Tablet, 1 MG PO DAILY Lisinopril (Lisinopril) 2.5 Mg Tablet, 2.5 MG PO DAILY Methenamine Hippurate (Methenamine Hippurate) 1 Gm Tab, 1 GRAM PO BID Mirabegron (Myrbetriq) 50 Mg Tab.er.24h, 50 MG PO DAILY Mirtazapine (Remeron) 30 Mg Tablet, 30 MG PO QHS Montelukast Sodium (Montelukast Sodium) 10 Mg Tablet, 10 MG PO QHS Oxybutynin Chloride (Oxybutynin Chloride ER) 5 Mg Tab.er.24, 5 MG PO DAILY Pantoprazole Sodium (Pantoprazole Sodium) 40 Mg Tablet.dr, 40 MG PO DAILY Salmeterol/Fluticasone (Advair 500-50 Diskus) 1 Each Blst.w.dev, 1 PUFF INH BID Simvastatin (Simvastatin) 20 Mg Tab, 20 MG PO QHS Tiotropium [place] (Spiriva) 18 Mcg Cap.w.dev, 1 PUFF INH DAILY Trazodone HCl (Trazodone HCl) 100 Mg Tablet, 200 MG PO QHS Varenicline (Chantix) 1 Mg Tablet, 1 MG PO BID Scheduled PRN Albuterol Sulfate (Proair Hfa) 8.5 Gm Hfa.aer.ad, 2 PUFF INH Q4H PRN for SHORTNESS OF BREATH Baclofen (Baclofen) 10 Mg Tab, 10 MG PO TID PRN for MUSCLE SPASMS Diphenhydramine HCl (Benadryl) 25 Mg Capsule, 25 MG PO Q6H PRN for ITCHING CAN TAKE SECOND CAPSULE PER DOSE Hydrocodone/Acetaminophen ([place]eves 10-325 Tablet) 1 Each Tablet, 1 TAB PO TID PRN for PAIN Allergies Coded Allergies: Contrast Media (Verified Allergy, Severe, ANAPHYLAXIS, 03/08/20) SOB, HIVES Penicillins (Verified Allergy, Intermediate, HIVES, 03/08/20) Sulfa (Sulfonamide Antibiotics) (Verified Allergy, Mild, ITCHING, 03/08/20) sulfamethoxazole (Verified Allergy, Mild, ITCHING, 03/08/20) trimethoprim (Verified Allergy, Mild, ITCHING, 03/08/20) Quinolones (Verified Allergy, Unknown, RED STREAKS UP FOREARM AND ITCHING, 03/08/20) amitriptyline (Verified Adverse Reaction, Intermediate, PASSES OUT, 03/08/20) aspirin (Verified Adverse Reaction, Mild, TUNNEL/BLURRY VISION, 03/08/20) A-FIB/CHADSVASC A-FIB History Current/History of A-Fib/PAF?: No Current PO Anticoag Therapy: No GME ATTESTATION GME ATTESTATION My faculty preceptor for this patient encounter was physically present during the encounter and was fully available. All aspects of the patient interview, examination, medical decision making process, and medical care plan development were reviewed and approved by the faculty preceptor. The faculty preceptor is aware and concurs with the plan as stated in the body of this note and will attest to such by his/her cosignature. ATTENDING NOTE I, Maricruz Burnham, have independently examined this patient and performed my own physical exam, as well as reviewed the documentation and edited where necessary. I have discussed in detail with the resident / student the findings and plan of treatment as documented by the resident / student and edited their note. I agree with their findings and treatment plan and have edited their documentation. I will continue to follow the patient during this hospital stay. QUEENIE WHITEHEAD MD Jun 13, 2020 05:08 MARICRUZ BURNHAM MD Jun 13, 2020 05:49
[2020-06-13] MEDS: TIOTROPIUM INHALER/CAPSULE (SPIRIVA) INH SCH (08:07)
[2020-06-13] MEDS: ADVAIR HFA 230/21MCG INHALER INH SCH ×2 (08:07→19:46)
[2020-06-13] MEDS: CARVedilol 3.125 MG TAB PO SCH ×2 (08:17→20:16)
[2020-06-13] MEDS: PANTOPRAZOLE 40MG TAB (PROTONIX) PO SCH (08:17)
[2020-06-13] MEDS: ENOXAPARIN 40MG/0.4ML SYRINGE (J1650 PER 10MG) SC SCH (08:17)
[2020-06-13] MEDS: FOLIC ACID 1 MG TAB PO SCH ×2 (08:17→20:16)
[2020-06-13] MEDS: GABAPENTIN 300 MG CAP PO SCH ×3 (08:17→20:16)
[2020-06-13] MEDS: FERROUS SULFATE 325MG TAB PO SCH (08:18)
[2020-06-13] MEDS: LISINOPRIL *2.5 MG* TAB PO SCH (08:18)
[2020-06-13] MEDS: CLOPIDOGREL 75 MG TAB PO SCH (08:18)
[2020-06-13] MEDS: MORPHINE 2 MG/ML 1ML VIAL (J2270) IV PRN ×2 (08:18→14:21)
[2020-06-13] MEDS: oxyBUTYnin *DITROPAN XL* 5 MG TABCR PO SCH (08:19)
[2020-06-13] MEDS ORDERED: TOLTERODINE (DETROL) 2 MG TAB PO SCH (09:00)
[2020-06-13] MEDS: VARENICLINE 1 MG TABLET PO SCH ×2 (09:00→20:16)
[2020-06-13] MEDS ORDERED: oxyBUTYnin *DITROPAN XL* 5 MG TABCR PO SCH (09:00)
[2020-06-13] MEDS: ACETAMINOPHEN TAB 650MG DOSE (2X325MG) PO PRN ×2 (13:51→20:16)
[2020-06-13 13:55] VITALS: O2SAT 98
[2020-06-13 14:00] VITALS: BP 140/72
[2020-06-13 15:37] VITALS: BP 114/52
[2020-06-13] MEDS ORDERED: FENTANYL REMOVAL DOCUMENTATION MISC XX SCH (18:00)
[2020-06-13] MEDS: fentaNYL 12 MCG/HR PATCH TOP SCH (18:18)
[2020-06-13] MEDS: SIMVASTATIN 20 MG TAB PO SCH (20:15)
[2020-06-13] MEDS: MIRTAZAPINE 15 MG TAB PO SCH (20:15)
[2020-06-13] MEDS: traZODone 100 MG TAB PO SCH (20:15)
[2020-06-13] MEDS: MONTELUKAST 10 MG TAB PO SCH (20:16)
[2020-06-13 22:00] VITALS: BP 108/50
--- NOTE | 2020-06-13 22:02 | IPNPDOC ---
Subjective Date Seen The patient was seen on 06/13/20. Subjective Chief Complaint/HPI Mrs. Kamara is a 75 year old female with COPD, chronic suprapubic catheter, and colostomy who is here for 1 week of lower abdominal pain with fevers. Today she reports malaise and abdominal pain. Denies any chest pain. Spoke with urology about case. Nurse also spoke with urology about case. Plan for suprapubic catheter exchange tomorrow Objective Physical Examination General Exam: Positive: Cooperative Eye Exam: Positive: EOMI ENT Exam: Positive: Atraumatic Neck Exam: Negative: JVD Chest Exam: Positive: Diminished Heart Exam: Positive: Rate Normal, Regular Rhythm Abdomen Exam: Positive: Normal bowel sounds, Tenderness, Other (suprapubic catheter and colostomy bag present) Extremity Exam: Positive: Edema (mild) Neuro Exam: Positive: Other (no focal deficits noted) Psych Exam: Positive: Mood NL Assessment /Plan Assessment Mrs. Kamara is a 75 year old female with COPD, chronic suprapubic catheter, and colostomy who is here for 1 week of lower abdominal pain with fevers found to have UTI. She continue to have fever. Suprapubic catheter to be changed tomorrow. Continue with IV antibiotics Plan/VTE VTE Prophylaxis Ordered?: Yes Plan 1. UTI Patient reports with fever and UA suggestive of UTI Urology to change suprapubic catheter tomorrow Continue with ceftriaxone Pending culture results 2. COPD Stable Continue inhalers 3. Chronic pain Continue gabapentin and baclofen 4. Hypertension Continue Coreg and lisinopril 5. Mood disorder Continue mirtazapine and trazodone 6. Hyperlipidemia Continue simvastatin 7. GERD Continue pantoprazole 8. DVT prophylaxis Continue Lovenox VS, I&O, 24H, Fishbone Vital Signs/I&O Vital Signs Date Time Temp Pulse Resp B/P (MAP) Pulse Ox O2 Delivery O2 Flow Rate FiO2 06/13/20 20:16 86 108/50 06/13/20 19:50 98.8 06/13/20 18:57 18 Room Air 06/13/20 15:37 96 I&O- Last 24 Hours up to 6 AM 06/13/20 05:59 Intake Total 550 ml Balance 550 ml Laboratory Data 24H LABS Laboratory Tests 2 06/13/20 00:12: Immature Granulocyte % (Auto) 0.5, Neutrophils (%) (Auto) 76.7H, Lymphocytes (%) (Auto) 9.9L, Monocytes (%) (Auto) 12.1H, Eosinophils (%) (Auto) 0.4, Basophils (%) (Auto) 0.4, Neutrophils # (Auto) 6.6, Lymphocytes # (Auto) 0.8L, Monocytes # (Auto) 1.0H, Eosinophils # (Auto) 0.0, Basophils # (Auto) 0.0, Nucleated Red Blood Cells % (auto) 0.0, Prothrombin Time 14.3H, Prothromb Time International Ratio 1.09, Activated Partial Thromboplast Time 35.4, Anion Gap 8, Glomerular Filtration Rate 57.7, Lactic Acid Level 0.8, Calcium Level 8.3L, Total Bilirubin 0.9, Direct Bilirubin 0.6H, Aspartate Amino Transf (AST/SGOT) 6L, Alanine Aminotransferase (ALT/SGPT) 9L, Alkaline Phosphatase 70, Total Protein 6.8, Albumin 2.8L, Albumin/Globulin Ratio 0.7L, Lipase 56L 06/13/20 01:37: Urine Color YELLOW, Urine Appearance CLOUDYH, Urine pH 6.0, Urine Specific [place] 1.005, Urine Protein 1+H, Urine Glucose (UA) NEGATIVE, Urine Ketones 1+H, Urine Blood 2+H, Urine Nitrite POSITIVEH, Urine Bilirubin NEGATIVE, Urine Urobilinogen 0.2, Urine Leukocyte Esterase 3+H, Urine WBC (Auto) TNTCH, Urine RBC (Auto) 21H, Urine Hyaline Casts (Auto) 0, Urine Bacteria (Auto) 2+H, Urine Squamous Epithelial Cells 0, Urine Transitional Epithelial Cells 1, Urine Amorphous Sediment SMALLH, Urine Mucus (Auto) SMALL, Urine Sperm (Auto) CBC/BMP Laboratory Tests 06/13/20 00:12 Microbiology Microbiology 06/13/20 Urine Culture, Received Pending 06/13/20 Respiratory Virus Panel (PCR) ([place]) - Final, Complete 06/13/20 Blood Culture, Received Pending 06/13/20 Blood Culture, Received Pending BETH ALLEN DO Jun 13, 2020 22:01
[2020-06-13 23:35] VITALS: O2SAT 98
[2020-06-14] MEDS: cefTRIAXone SOD 2 GM in D5W MINI-BAG PLUS 50 ML IV SCH (03:15)
[2020-06-14 06:00] VITALS: BP 106/51
[2020-06-14] MEDS: ACETAMINOPHEN TAB 650MG DOSE (2X325MG) PO PRN ×2 (07:05→14:42)
[2020-06-14 07:24] LABS: HEMATOCRIT 31.2 % (36.0-47.0); HEMOGLOBIN 10.4 g/dl (12.0-15.5); MEAN CORPUSCULAR HEMOGLOBIN 28.7 pg (27.0-33.0); MEAN CORPUSCULAR HGB CONC 33.3 g/dl (32.0-36.5); PLATELET COUNT, AUTOMATED 160 10^3/uL (150-450); RED BLOOD COUNT 3.63 10^6/uL (4.00-5.40); WHITE BLOOD COUNT 5.3 10^3/uL (4.0-10.0)
[2020-06-14] MEDS: ADVAIR HFA 230/21MCG INHALER INH SCH ×2 (07:33→20:37)
[2020-06-14] MEDS: TIOTROPIUM INHALER/CAPSULE (SPIRIVA) INH SCH (07:33)
[2020-06-14 07:54] LABS: CALCIUM LEVEL 8.2 MG/DL (8.8-10.2); CREATININE FOR GFR 1.05 MG/DL (0.55-1.30); GLOMERULAR FILTRATION RATE 54.5 (>39); MAGNESIUM LEVEL 1.8 MG/DL (1.8-2.4); POTASSIUM SERUM 3.9 MEQ/L (3.5-5.1)
--- NOTE | 2020-06-14 08:02 | ECGEPIP ---
[facility] - ED Test Date: 2020-06-13 Pat Name: MATT REYNOSO Department: Room: [facility] Gender: Female Director Of Rotc: BEE LEONB: 1945 Requested By: ALBINA Ruiz Order Number: [id number] Reading MD: Sandra Ku Measurements Intervals [place] Rate: 107 P: FL: 0 QRS: 54 QRSD: 81 T: 70 QT: 341 QTc: 456 Interpretive Statements SINUS RHYTHM LOW QRS VOLTAGE IN PRECORDIAL LEADS ABNORMAL RHYTHM ECG INCREASED RATE 03/21/20 Electronically Signed on 06-14-2020 8:02:26 EST by Sandra Ku
[2020-06-14] MEDS: ENOXAPARIN 40MG/0.4ML SYRINGE (J1650 PER 10MG) SC SCH (10:39)
[2020-06-14] MEDS: oxyBUTYnin *DITROPAN XL* 5 MG TABCR PO SCH (10:39)
[2020-06-14] MEDS: GABAPENTIN 300 MG CAP PO SCH ×3 (10:40→20:05)
[2020-06-14] MEDS: CLOPIDOGREL 75 MG TAB PO SCH (10:40)
[2020-06-14] MEDS: FOLIC ACID 1 MG TAB PO SCH ×2 (10:40→20:05)
[2020-06-14] MEDS: VARENICLINE 1 MG TABLET PO SCH ×2 (10:40→20:05)
[2020-06-14] MEDS: PANTOPRAZOLE 40MG TAB (PROTONIX) PO SCH (10:40)
[2020-06-14] MEDS: FERROUS SULFATE 325MG TAB PO SCH (10:40)
[2020-06-14] MEDS: LISINOPRIL *2.5 MG* TAB PO SCH (10:43)
[2020-06-14] MEDS: CARVedilol 3.125 MG TAB PO SCH ×2 (10:43→20:06)
[2020-06-14 11:55] VITALS: O2SAT 97
--- NOTE | 2020-06-14 13:02 | IPNPDOC ---
Subjective Date Seen The patient was seen on 06/14/20. Subjective Chief Complaint/HPI Mrs. Kamara is a 75 year old female with COPD, chronic suprapubic catheter, and colostomy who is here for 1 week of lower abdominal pain with fevers. Patient had fevers overnight. Denies chest pain or dyspnea. Abdominal pain still present. Urology to change suprapubic catheter today Objective Physical Examination General Exam: Positive: Cooperative Eye Exam: Positive: EOMI ENT Exam: Positive: Atraumatic Neck Exam: Negative: JVD Chest Exam: Positive: Diminished Heart Exam: Positive: Rate Normal, Regular Rhythm Abdomen Exam: Positive: Normal bowel sounds, Tenderness, Other (suprapubic catheter and colostomy bag present) Extremity Exam: Positive: Edema (mild) Neuro Exam: Positive: Other (no focal deficits noted) Psych Exam: Positive: Mood NL Assessment /Plan Assessment Mrs. Kamara is a 75 year old female with COPD, chronic suprapubic catheter, and colostomy who is here for 1 week of lower abdominal pain with fevers found to have UTI. She continue to have fever. Suprapubic catheter to be changed today by urology. Otherwise pending resolution of fevers and urine culture results Plan/VTE VTE Prophylaxis Ordered?: Yes Plan 1. UTI Patient reports with fever and UA suggestive of UTI Urology to change suprapubic catheter today Continue with ceftriaxone Pending culture results 2. COPD Stable Continue inhalers 3. Chronic pain Continue gabapentin and baclofen 4. Hypertension Continue Coreg and lisinopril 5. Mood disorder Continue mirtazapine and trazodone 6. Hyperlipidemia Continue simvastatin 7. GERD Continue pantoprazole 8. DVT prophylaxis Continue Lovenox Disposition: Pending resolution of fevers and urine culture results VS, I&O, 24H, Fishbone Vital Signs/I&O Vital Signs Date Time Temp Pulse Resp B/P (MAP) Pulse Ox O2 Delivery O2 Flow Rate FiO2 06/14/20 11:55 97 Room Air 06/14/20 10:43 94 113/54 06/14/20 06:00 20 06/14/20 05:00 100.4 I&O- Last 24 Hours up to 6 AM 06/14/20 06:00 Intake Total 1010 ml Output Total 2250 ml Balance -1240 ml Laboratory Data 24H LABS Laboratory Tests 2 06/14/20 06:52: Nucleated Red Blood Cells % (auto) 0.0, Anion Gap 6L, Glomerular Filtration Rate 54.5, Calcium Level 8.2L, Magnesium Level 1.8 CBC/BMP Laboratory Tests 06/14/20 06:52 Microbiology Microbiology 06/13/20 Urine Culture, Worksheet Pending 06/13/20 Respiratory Virus Panel (PCR) ([place]) - Final, Complete 06/13/20 Blood Culture - Preliminary, Resulted No growth after 24 hours . All specim... 06/13/20 Blood Culture - Preliminary, Resulted No growth after 24 hours . All specim... BETH ALLEN DO Jun 14, 2020 13:02
[2020-06-14 14:00] VITALS: BP 115/56
[2020-06-14] MEDS: MORPHINE 2 MG/ML 1ML VIAL (J2270) IV PRN (16:42)
[2020-06-14] MEDS: MONTELUKAST 10 MG TAB PO SCH (20:05)
[2020-06-14] MEDS: SIMVASTATIN 20 MG TAB PO SCH (20:05)
[2020-06-14] MEDS: MIRTAZAPINE 15 MG TAB PO SCH (20:05)
[2020-06-14] MEDS: traZODone 100 MG TAB PO SCH (20:05)
[2020-06-14 21:00] VITALS: BP 129/65; O2SAT 95
[2020-06-15] MEDS: cefTRIAXone SOD 2 GM in D5W MINI-BAG PLUS 50 ML IV SCH (02:17)
[2020-06-15 05:55] LABS: HEMATOCRIT 28.8 % (36.0-47.0); HEMOGLOBIN 9.8 g/dl (12.0-15.5); MEAN CORPUSCULAR HEMOGLOBIN 29.1 pg (27.0-33.0); MEAN CORPUSCULAR VOLUME 85.5 fl (80.0-96.0); PLATELET COUNT, AUTOMATED 132 10^3/uL (150-450); RED BLOOD COUNT 3.37 10^6/uL (4.00-5.40); WHITE BLOOD COUNT 4.2 10^3/uL (4.0-10.0)
[2020-06-15 06:00] VITALS: BP 136/64
[2020-06-15 06:20] LABS: BLOOD UREA NITROGEN 11 MG/DL (7-18); CALCIUM LEVEL 8.5 MG/DL (8.8-10.2); CARBON DIOXIDE LEVEL 30 MEQ/L (21-32); CHLORIDE LEVEL 101 MEQ/L (98-107); GLOMERULAR FILTRATION RATE > 60.0 (>39); GLUCOSE, FASTING 205 MG/DL (70-100); POTASSIUM SERUM 3.6 MEQ/L (3.5-5.1); SODIUM LEVEL 135 MEQ/L (136-145)
[2020-06-15] MEDS: CLOPIDOGREL 75 MG TAB PO SCH (09:43)
[2020-06-15] MEDS: ENOXAPARIN 40MG/0.4ML SYRINGE (J1650 PER 10MG) SC SCH (09:43)
[2020-06-15] MEDS: VARENICLINE 1 MG TABLET PO SCH ×2 (09:43→20:41)
[2020-06-15] MEDS: GABAPENTIN 300 MG CAP PO SCH ×3 (09:44→20:41)
[2020-06-15] MEDS: FOLIC ACID 1 MG TAB PO SCH ×2 (09:44→20:41)
[2020-06-15] MEDS: PANTOPRAZOLE 40MG TAB (PROTONIX) PO SCH (09:44)
[2020-06-15] MEDS: FERROUS SULFATE 325MG TAB PO SCH (09:44)
[2020-06-15] MEDS: oxyBUTYnin *DITROPAN XL* 5 MG TABCR PO SCH (09:44)
[2020-06-15] MEDS: CARVedilol 3.125 MG TAB PO SCH ×2 (09:46→20:43)
[2020-06-15] MEDS: LISINOPRIL *2.5 MG* TAB PO SCH (09:47)
[2020-06-15] MEDS: ACETAMINOPHEN TAB 650MG DOSE (2X325MG) PO PRN ×2 (09:47→22:42)
[2020-06-15] MEDS: VANCOMYCIN HCL 1,000 MG, VIAL MATE ADAPTER 1 EACH in D5W 250 ML IV SCH ×2 (09:48→20:39)
[2020-06-15] MEDS: TIOTROPIUM INHALER/CAPSULE (SPIRIVA) INH SCH (09:57)
[2020-06-15] MEDS: ADVAIR HFA 230/21MCG INHALER INH SCH ×2 (09:57→19:39)
[2020-06-15] MEDS ORDERED: VANCOMYCIN HCL 500 MG in D5W MINI-BAG PLUS 100 ML IV ONE (10:00)
[2020-06-15 10:39] VITALS: O2SAT 100
[2020-06-15 13:54] VITALS: BP 129/63
[2020-06-15] MEDS: MORPHINE 2 MG/ML 1ML VIAL (J2270) IV PRN (15:45)
--- NOTE | 2020-06-15 16:51 | IPNPDOC ---
Subjective Date Seen The patient was seen on 06/15/20. Subjective Chief Complaint/HPI Mrs. Kamara is a 75 year old female with COPD, chronic suprapubic catheter, and colostomy who is here for 1 week of lower abdominal pain with fevers. Yesterday her suprapubic catheter was changed by nurse. Yesterday she also had another fever. When I spoke with her today, she tells me she following with pain management not in [place]. They have her on a fentanyl patch and [place] three times a day as needed. Pain has been chronic, but worse a week prior to admission. Otherwise, denies chest pain or dyspnea. Still has abdominal pain Objective Physical Examination General Exam: Positive: Cooperative Eye Exam: Positive: EOMI ENT Exam: Positive: Atraumatic Neck Exam: Negative: JVD Chest Exam: Positive: Diminished Heart Exam: Positive: Rate Normal, Regular Rhythm Abdomen Exam: Positive: Normal bowel sounds, Tenderness, Other (suprapubic catheter and colostomy bag present) Extremity Exam: Positive: Edema (mild) Neuro Exam: Positive: Other (no focal deficits noted) Psych Exam: Positive: Mood NL Assessment /Plan Assessment Mrs. Kamara is a 75 year old female with COPD, chronic suprapubic catheter, and colostomy who is here for 1 week of lower abdominal pain with fevers found to have UTI. She continue to have fever. Urine culture grew MRSA. Antibiotics changed to cover for MRSA. Suprapubic catheter changed by nurse on 06/14/2020. Otherwise pending resolution of fevers Plan/VTE VTE Prophylaxis Ordered?: Yes Plan 1. MRSA UTI in the setting of chronic suprapubic T[place]z Patient reports with fever and UA suggestive of UTI -Urine culture grew MRSA Suprapubic catheter changed on 06/14/2020 Changed antibiotics to Vancomycin 2. Chronic pain -Follows with pain management (not in [place]) -Fentanyl patch and norco TID -PRN morphine for breakthrough pain 3. COPD Stable Continue inhalers 4. Chronic pain Continue gabapentin and baclofen 5. Hypertension Continue Coreg and lisinopril 6. Mood disorder Continue mirtazapine and trazodone 7. Hyperlipidemia Continue simvastatin 8. GERD Continue pantoprazole 9. DVT prophylaxis Continue Lovenox Disposition: Pending resolution of fevers VS, I&O, 24H, Fishbone Vital Signs/I&O Vital Signs Date Time Temp Pulse Resp B/P (MAP) Pulse Ox O2 Delivery O2 Flow Rate FiO2 06/15/20 15:57 20 06/15/20 13:54 97.2 85 129/63 (85) 95 Room Air I&O- Last 24 Hours up to 6 AM 06/15/20 06:00 Intake Total 1190 ml Output Total 1775 ml Balance -585 ml Laboratory Data 24H LABS Laboratory Tests 2 06/15/20 05:33: Nucleated Red Blood Cells % (auto) 0.0, Anion Gap 4L, Glomerular Filtration Rate > 60.0, Calcium Level 8.5L CBC/BMP Laboratory Tests 06/15/20 05:33 Microbiology Microbiology 06/13/20 Urine Culture - Preliminary, Resulted Staphylococcus Aureus Staph.aureus Methicillin Resis 06/13/20 Respiratory Virus Panel (PCR) ([place]) - Final, Complete 06/13/20 Blood Culture - Preliminary, Resulted No Growth after 48 hours. All Specime... 06/13/20 Blood Culture - Preliminary, Resulted No Growth after 48 hours. All Specime... BETH ALLEN DO Jun 15, 2020 16:51
[2020-06-15] MEDS: NORCO, ANEXSIA 5/325MG TABLET (HYDROcodone/ACETAMINOPHEN) PO PRN (20:40)
[2020-06-15] MEDS: MIRTAZAPINE 15 MG TAB PO SCH (20:41)
[2020-06-15] MEDS: traZODone 100 MG TAB PO SCH (20:42)
[2020-06-15] MEDS: MONTELUKAST 10 MG TAB PO SCH (20:42)
[2020-06-15] MEDS: SIMVASTATIN 20 MG TAB PO SCH (20:43)
[2020-06-15 22:00] VITALS: BP 155/68
[2020-06-16 02:00] VITALS: BP 121/60
[2020-06-16 06:00] VITALS: BP 134/72
[2020-06-16 09:14] LABS: HEMATOCRIT 29.4 % (36.0-47.0); HEMOGLOBIN 10.1 g/dl (12.0-15.5); MEAN CORPUSCULAR HEMOGLOBIN 29.1 pg (27.0-33.0); MEAN CORPUSCULAR HGB CONC 34.4 g/dl (32.0-36.5); MEAN CORPUSCULAR VOLUME 84.7 fl (80.0-96.0); PLATELET COUNT, AUTOMATED 153 10^3/uL (150-450); RED BLOOD COUNT 3.47 10^6/uL (4.00-5.40); WHITE BLOOD COUNT 2.7 10^3/uL (4.0-10.0)
[2020-06-16] MEDS: GABAPENTIN 300 MG CAP PO SCH ×3 (09:27→21:27)
[2020-06-16] MEDS: FOLIC ACID 1 MG TAB PO SCH ×2 (09:30→21:27)
[2020-06-16] MEDS: LISINOPRIL *2.5 MG* TAB PO SCH (09:30)
[2020-06-16] MEDS: CLOPIDOGREL 75 MG TAB PO SCH (09:31)
[2020-06-16] MEDS: VARENICLINE 1 MG TABLET PO SCH ×2 (09:31→21:26)
[2020-06-16] MEDS: CARVedilol 3.125 MG TAB PO SCH ×2 (09:31→21:26)
[2020-06-16] MEDS: FERROUS SULFATE 325MG TAB PO SCH (09:31)
[2020-06-16] MEDS: oxyBUTYnin *DITROPAN XL* 5 MG TABCR PO SCH (09:31)
[2020-06-16] MEDS: PANTOPRAZOLE 40MG TAB (PROTONIX) PO SCH (09:31)
[2020-06-16 09:32] LABS: BLOOD UREA NITROGEN 11 MG/DL (7-18); CALCIUM LEVEL 8.6 MG/DL (8.8-10.2); CARBON DIOXIDE LEVEL 31 MEQ/L (21-32); CHLORIDE LEVEL 101 MEQ/L (98-107); CREATININE FOR GFR 0.83 MG/DL (0.55-1.30); GLOMERULAR FILTRATION RATE > 60.0 (>39); GLUCOSE, FASTING 201 MG/DL (70-100); POTASSIUM SERUM 3.9 MEQ/L (3.5-5.1); SODIUM LEVEL 137 MEQ/L (136-145); VANCOMYCIN LEVEL TROUGH 13.2 UG/ML (10.0-20.0)
[2020-06-16] MEDS: ENOXAPARIN 40MG/0.4ML SYRINGE (J1650 PER 10MG) SC SCH (09:32)
[2020-06-16] MEDS: VANCOMYCIN HCL 1,000 MG, VIAL MATE ADAPTER 1 EACH in D5W 250 ML IV SCH ×2 (09:33→21:27)
[2020-06-16] MEDS: NORCO, ANEXSIA 5/325MG TABLET (HYDROcodone/ACETAMINOPHEN) PO PRN ×2 (09:34→17:38)
[2020-06-16 09:47] VITALS: O2SAT 95
[2020-06-16] MEDS: TIOTROPIUM INHALER/CAPSULE (SPIRIVA) INH SCH (12:34)
[2020-06-16] MEDS: ADVAIR HFA 230/21MCG INHALER INH SCH ×2 (12:34→20:30)
[2020-06-16 14:00] VITALS: BP 132/66
[2020-06-16] MEDS: fentaNYL 12 MCG/HR PATCH TOP SCH (17:37)
--- NOTE | 2020-06-16 18:20 | IPNPDOC ---
Subjective Date Seen The patient was seen on 06/16/20. Subjective Chief Complaint/HPI Mrs. Kamara is a 75 year old female with COPD, chronic suprapubic catheter, and colostomy who is here for 1 week of lower abdominal pain with fevers. Suprapubic Tamez changed on 06/14/2020. Last night, she had another fever. Otherwise, abdominal pain still present. She tells me she has chest pain that is tender to touch on left side, but no chest pain today. Objective Physical Examination General Exam: Positive: Cooperative Eye Exam: Positive: EOMI ENT Exam: Positive: Atraumatic Neck Exam: Negative: JVD Chest Exam: Positive: Diminished Heart Exam: Positive: Rate Normal, Regular Rhythm Abdomen Exam: Positive: Normal bowel sounds, Tenderness, Other (suprapubic catheter and colostomy bag present) Extremity Exam: Positive: Edema (mild) Neuro Exam: Positive: Other (no focal deficits noted) Psych Exam: Positive: Mood NL Assessment /Plan Assessment Mrs. Kamara is a 75 year old female with COPD, chronic suprapubic catheter, and colostomy who is here for 1 week of lower abdominal pain with fevers found to have UTI. She continue to have fever. Urine culture grew MRSA. Antibiotics changed to cover for MRSA. Suprapubic catheter changed by nurse on 06/14/2020. Otherwise pending resolution of fevers Plan/VTE VTE Prophylaxis Ordered?: Yes Plan 1. MRSA UTI in the setting of chronic suprapubic Tamez Patient reports with fever and UA suggestive of UTI -Urine culture grew MRSA Suprapubic catheter changed on 06/14/2020 Changed antibiotics to Vancomycin 2. Chronic pain -Follows with pain management (not in [place]) -Fentanyl patch and norco TID -PRN morphine for breakthrough pain 3. COPD Stable Continue inhalers 4. Chronic pain Continue gabapentin and baclofen 5. Hypertension Continue Coreg and lisinopril 6. Mood disorder Continue mirtazapine and trazodone 7. Hyperlipidemia Continue simvastatin 8. GERD Continue pantoprazole 9. DVT prophylaxis Continue Lovenox Disposition: Pending resolution of fevers VS, I&O, 24H, Fishbone Vital Signs/I&O Vital Signs Date Time Temp Pulse Resp B/P (MAP) Pulse Ox O2 Delivery O2 Flow Rate FiO2 06/16/20 18:10 18 06/16/20 14:00 97.4 82 132/66 (88) 100 Room Air I&O- Last 24 Hours up to 6 AM 06/16/20 06:00 Intake Total 1010 ml Output Total 2175 ml Balance -1165 ml Laboratory Data 24H LABS Laboratory Tests 2 06/16/20 08:44: Nucleated Red Blood Cells % (auto) 0.0, Anion Gap 5L, Glomerular Filtration Rate > 60.0, Calcium Level 8.6L, Vancomycin Level Trough 13.2 CBC/BMP Laboratory Tests 06/16/20 08:44 Microbiology Microbiology 06/13/20 Urine Culture - Final, Complete Acinetobacter Baumannii Comple Staphylococcus Aureus Staph.aureus Methicillin Resis Stenotrophomonas Maltophilia 06/13/20 Respiratory Virus Panel (PCR) ([place]) - Final, Complete 06/13/20 Blood Culture - Preliminary, Resulted No Growth after 72 hours. All specime... 06/13/20 Blood Culture - Preliminary, Resulted No Growth after 72 hours. All specime... BETH ALLEN DO Jun 16, 2020 18:20
[2020-06-16] MEDS: traZODone 100 MG TAB PO SCH (21:26)
[2020-06-16] MEDS: MIRTAZAPINE 15 MG TAB PO SCH (21:27)
[2020-06-16] MEDS: SIMVASTATIN 20 MG TAB PO SCH (21:27)
[2020-06-16] MEDS: MONTELUKAST 10 MG TAB PO SCH (21:27)
[2020-06-16] MEDS: MORPHINE 2 MG/ML 1ML VIAL (J2270) IV PRN (21:33)
[2020-06-16 22:00] VITALS: BP_SYST 120; BP_SYST 132; BP_DIAS 52; BP_DIAS 66; O2SAT 97
[2020-06-17 06:00] VITALS: BP 121/55
[2020-06-17 06:22] LABS: HEMATOCRIT 29.5 % (36.0-47.0); MEAN CORPUSCULAR HEMOGLOBIN 28.9 pg (27.0-33.0); MEAN CORPUSCULAR HGB CONC 33.9 g/dl (32.0-36.5); MEAN CORPUSCULAR VOLUME 85.3 fl (80.0-96.0); PLATELET COUNT, AUTOMATED 168 10^3/uL (150-450); RED BLOOD COUNT 3.46 10^6/uL (4.00-5.40); WHITE BLOOD COUNT 2.4 10^3/uL (4.0-10.0)
[2020-06-17 06:48] LABS: BLOOD UREA NITROGEN 15 MG/DL (7-18); C REACTIVE PROTEIN QUANTITATIV 6.89 MG/DL (0.00-0.30); CALCIUM LEVEL 8.6 MG/DL (8.8-10.2); CARBON DIOXIDE LEVEL 32 MEQ/L (21-32); CHLORIDE LEVEL 100 MEQ/L (98-107); CREATININE FOR GFR 0.82 MG/DL (0.55-1.30); GLOMERULAR FILTRATION RATE > 60.0 (>39); GLUCOSE, FASTING 232 MG/DL (70-100); POTASSIUM SERUM 4.3 MEQ/L (3.5-5.1); SODIUM LEVEL 135 MEQ/L (136-145)
[2020-06-17 07:05] LABS: ERYTHROCYTE SEDIMENTATION RATE 81 mm/hr (0-30)
[2020-06-17] MEDS: TIOTROPIUM INHALER/CAPSULE (SPIRIVA) INH SCH (09:09)
[2020-06-17] MEDS: ADVAIR HFA 230/21MCG INHALER INH SCH ×2 (09:10→19:30)
--- NOTE | 2020-06-17 10:00 | IPNPDOC ---
Text Note Date of Service The patient was seen on 06/17/20. NOTE SUBJECTIVE: Mrs. Kamara was seen and examined at bedside this morning. She complains of pain at her suprapubic catheter site and pain in abdomen whenever it is moved or she coughs. On PE, there was no erythema, warmth or swelling near the insertion. She admits to improvement of fevers and chills. She has some shortness of breath periodically and uses O2 when needed. Pt denies chest pain, dizziness, and edema. OBJECTIVE: VITAL SIGNS: Please see below. CONSTITUTIONAL: Pt is lying comfortably in bed. No respiratory distress noted. HEENT: PERRL. EOM intact. No lymphadenopathy noted. CV: S1S2 present. RRR. No murmurs, rubs or gallops. RESPIRATORY: Clear to auscultation in all lung esparza with poor inspiratory effort. No adventitious breath sounds appreciated. ABDOMEN: Tender to palpation in left and right lower quadrants around the site of suprapubic catheter. No erythema, warmth, or abnormalities surrounding site. Bowel sounds normoactive in all 4 quadrants. EXTREMITIES: No edema noted. Pulses 3+ NEUROLOGICAL: No obvious focal neurologic deficits. PSYCHIATRIC: Normal mood and affect. ASSESSMENT: Mrs. Kamara is a 75 y/o female with PMH hx of COPD, urinary retention w/ suprapubic catheter, colostomy, chronic low back pain and peripheral neuropathy presented with lower abdominal pain, subjective fevers, chills and shortness of breath. Pt was found to have mild left-sided hydroureteronephrosis without any obstructing stones, febrile and tachycardic concerning for urosepsis. PLAN: #UTI in the setting of chronic suprapubic Tamez catheter -Suprapubic catheter changed on 06/14/2020 -Pt reports resolution of fevers. Pt is currently afebrile., -UA on 06/13/20 suggestive of UTI. Urine culture grew MRSA, Acinetobacter baumannii, S. aureus, Stenotrophomonas maltophilia -ESR elevated 81. CRP elevated 6.89. -Day #3 of IV Vancomycin 1000mg Q12H -Infectious disease consultation placed due to growth of multiple organisms and patient allergy to multiple antibitoics (penicillins, quinolones, sulfa antibiotics). PO recommendations appreciated prior to D/C. #Chronic low back and neck pain -Pt fell on ice/snow years ago -Follows with pain management (not in [place]) -Fentanyl patch and Hydocodone Bitart/Acetaminophen 325/5 x2 tablets TID -Morphine 2mg PRN for severe breakthrough pain #COPD -Currently stable. -Continue Fluticasone/Salmetrerol and Tiotropium bromide inhalers -Oxygen therapy when needed #Peripheral neuropathy -Continue Gabapentin 600 mg TID PO and Baclofen 10 mg TID PRN PO #HTN -Continue Carvedilol 3.125 mg PO daily and Lisinopril 2.5 mg PO daily #HLD -Continue simvastatin 20 mg PO daily #GERD -Continue Pantoprazole sodium 40 mg PO daily #Hx of CAD -Pt prescribed Plavix by Dr. Ramos. Continue Plavix 75 mg PO daily #Chronic iron deficiency anemia -Continue ferrous sulfate 325 mg PO daily #Unspecified mood disorder -Continue mirtazapine 30 mg PO daily and Trazodone 200 mg DVT PROPHYLAXIS: Lovenox 40 mg daily CODE STATUS: Full Code DISPOSITION: Anticipate discharge tomorrow pending ID consultation VS,Carrie, I+O VS, Carrie I+O Laboratory Tests 06/17/20 05:59 Vital Signs Date Time Temp Pulse Resp B/P (MAP) Pulse Ox O2 Delivery O2 Flow Rate FiO2 06/17/20 06:00 98.2 84 19 121/55 (77) 97 Room Air I&O- Last 24 Hours up to 6 AM 06/17/20 05:59 Intake Total 2560 ml Output Total 1725 ml Balance 835 ml GME ATTESTATION GME ATTESTATION My faculty preceptor for this patient encounter was physically present during the encounter and was fully available. All aspects of the patient interview, examination, medical decision making process, and medical care plan development were reviewed and approved by the faculty preceptor. The faculty preceptor is aware and concurs with the plan as stated in the body of this note and will attest to such by his/her cosignature. ATTENDING NOTE I, Pierre Schmitz, saw and evaluated the patient. I agree with the finding and the plan of care as documented in the resident note. RACH BURGESS DO Jun 17, 2020 10:00 PIERRE SCHMITZ DO Jun 17, 2020 16:32
[2020-06-17] MEDS: ENOXAPARIN 40MG/0.4ML SYRINGE (J1650 PER 10MG) SC SCH (10:24)
[2020-06-17] MEDS: GABAPENTIN 300 MG CAP PO SCH ×3 (10:24→21:08)
[2020-06-17] MEDS: CARVedilol 3.125 MG TAB PO SCH ×2 (10:25→21:08)
[2020-06-17] MEDS: FOLIC ACID 1 MG TAB PO SCH ×2 (10:25→21:07)
[2020-06-17] MEDS: PANTOPRAZOLE 40MG TAB (PROTONIX) PO SCH (10:25)
[2020-06-17] MEDS: FERROUS SULFATE 325MG TAB PO SCH (10:25)
[2020-06-17] MEDS: CLOPIDOGREL 75 MG TAB PO SCH (10:25)
[2020-06-17] MEDS: LISINOPRIL *2.5 MG* TAB PO SCH (10:26)
[2020-06-17] MEDS: VARENICLINE 1 MG TABLET PO SCH ×2 (10:31→21:06)
[2020-06-17] MEDS: oxyBUTYnin *DITROPAN XL* 5 MG TABCR PO SCH (10:31)
[2020-06-17] MEDS: MORPHINE 2 MG/ML 1ML VIAL (J2270) IV PRN (10:31)
[2020-06-17] MEDS ORDERED: VANCOMYCIN HCL 750 MG, VIAL MATE ADAPTER 1 EACH in D5W 250 ML IV SCH (13:00)
[2020-06-17 14:00] VITALS: BP 154/70
--- NOTE | 2020-06-17 19:38 | IPN ---
INFECTIOUS DISEASE PROGRESS NOTE DATE: 06/17/2020 REQUESTING PHYSICIAN: Dr. España REASON FOR CONSULTATION: Evaluation of urinary tract infection with polymicrobial myles and multiple drug allergies. HISTORY OF PRESENT ILLNESS: The patient is a 75-year-old female with a history of urinary retention, has a chronic suprapubic catheter, history of colon resection for diverticulitis with a colostomy of the right lower quadrant. Has a suprapubic catheter changed every month by Urology. The patient presented to the Emergency Room with a one week history of abdominal pain, fever up to 102 and chills. The patient on admission had a white count of 8.5 and blood cultures times two sets were negative. Urine culture was positive for MRSA, MSSA, Stenotrophomonas and Acinetobacter. Because of her multiple drug allergies, the patient was only treated with IV Vancomycin with improvement of her symptoms. Her fever resolved. She has not had a fever for [address] abdomen and pelvis had atelectasis and mild left sided hydronephrosis. She had some air in the bladder which was felt to be due to the catheter and splenomegaly. PAST MEDICAL HISTORY: The patient's past medical history is significant for: 1. History of hepatitis C treated by Dr. Scott with Epclusa in 2017 and had a cure but the patient has stage of 3 liver disease and probably has cirrhosis at this time as she has pancytopenia and splenomegaly. 2. History of chronic obstructive pulmonary disease. 3. Depression. 4. Insomnia. 5. Hypertension. 6. Reflux. 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 Osteoporosis. 9. Chronic kidney disease. 10. Recurrent urinary tract infections. 11. Peripheral neuropathy. 12. Lung nodule on CT chest. PAST SURGICAL HISTORY: The patient's past surgical history is significant for: 1. 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 2. Cholecystectomy. 3. . 4. Ovarian wedge resection. 5. Colostomy requiring multiple surgeries. 6. Multiple bowel surgeries. 7. Hernia repair. 8. Rectovaginal fistula that could not be repaired. 9. Appendectomy. 10. Hysterectomy. 11. Left hip arthroplasty. 12. Endoscopy and colonoscopy done in 2014 which was suggestive of cryptitis questionable Crohn's disease but the patient denies having that history. 13. Suprapubic catheter placement in 2019 with cystoscopy. 14. Hernia surgery. 15. Multiple hammer toe surgeries done by Dr. Mccallum, both feet 2020. SOCIAL HISTORY: She quit smoking in 2016, uses Chantix. Denies alcohol or drug use. She lives alone but has home health aides three times a day. MEDICATIONS: 1. Vancomycin 750 mg IV q. 12 hours. 2. Tylenol p.r.n. 3. Narco 2 tablets p.o. three times daily p.r.n. 4. Mirtazapine 30 mg p.o. q. h.s. 5. Singulair 10 mg p.o. q. h.s. 6. Zocor 20 mg q. h.s. 7. Trazodone 200 mg p.o. q. h.s. 8. Fentanyl 12 mcg p.o. topical. 9. Coreg 3.125 mg twice daily. 10. Plavix 75 mg daily. 11. Ferrous Sulfate 325 mg daily. 12. Folic Acid one mg twice daily. 13. Gabapentin 600 mg three times daily. 14. Lisinopril 2.5 mg daily. 15. Pantoprazole 40 mg p.o. daily. 16. Chantix one mg twice daily. 17. Oxybutynin 10 mg daily. 18. Fluticasone 2 puffs inhaled twice daily. 19. Spiriva one inhaled daily. 20. Baclofen 10 mg three times daily. 21. Zofran p.r.n. LABORATORY STUDIES: White count is 2.4, hemoglobin 10, hematocrit 29.5, platelets 168, ESR is 81, white count on admission was 8.5. Sodium 135, potassium 4.3, chronic 100, bicarbonate 32, BUN 15, creatinine 0.82, glucose 232, calcium 8.6, CRP 6.89. Microbiology: Blood cultures two sets thought to be negative after 72 hours. Respiratory panel negative. Urine culture: MRSA, MASSA, Acetobacter and Stenotrophomonas, all sensitive to Bactrim. PHYSICAL EXAMINATION: GENERAL APPEARANCE: She is a pleasant, elderly female in no acute distress. HEART: Normal, S1, S2. No murmurs appreciated. LUNGS: Clear. No rales, rhonchi or wheezes. ABDOMEN: Soft, mildly tender in the left lower quadrant. Colostomy in the right lower quadrant with soft green stools. Multiple bowel surgery scars midline and healed. She has also incisional hernia in the left lower quadrant where there is another scar. BACK: No CVA or lumbosacral tenderness. EXTREMITIES: No clubbing, cyanosis, or edema. No calf tenderness.Right big toe healed scar IMPRESSION: This is a 75-year-old female admitted with a fever up to 102, associated with mild left sided hydronephrosis in a patient who has chronic urinary retention and suprapubic catheter. She had polymicrobial myles and was febrile for 3 days but she defervesced on IV Vancomycin with no gram negative coverage. The patient has a history of having a sulfa allergy since she was born, the same as her whole family and it is only itching with no hives. The patient stated that she is able to tolerate it if she takes Benadryl premedication. PLAN: 1. Discontinue IV Vancomycin. Start Benadryl 25 mg p.o. twice daily half an hour before p.o. Bactrim. Treat with p.o. Bactrim for 5 days. 2. The patient can be discharged home tomorrow if tolerates p.o. Bactrim. If she develops itching, I would treat her with Doxycycline which would cover MRSA and MSSA. Anyway the gram negatives had not been covered during this hospitalization and the patient defervesced. 3-Of note, the patient probably has liver cirrhosis and needs to be screened for liver cancer with alpha fetoprotein and liver ultrasound every 6 months. She had a CT done today and the liver was normal with no masses. I will also add alpha fetoprotein to her labs. SASCHA
[2020-06-17] MEDS: diphenhydrAMINE 25MG CAP PO PRN (19:57)
[2020-06-17] MEDS: MONTELUKAST 10 MG TAB PO SCH (21:06)
[2020-06-17] MEDS: BACTRIM 160MG/800MG DS TAB PO SCH (21:06)
[2020-06-17] MEDS: SIMVASTATIN 20 MG TAB PO SCH (21:06)
[2020-06-17] MEDS: ACETAMINOPHEN TAB 650MG DOSE (2X325MG) PO PRN (21:07)
[2020-06-17] MEDS: MIRTAZAPINE 15 MG TAB PO SCH (21:07)
[2020-06-17] MEDS: traZODone 100 MG TAB PO SCH (21:07)
[2020-06-17 22:00] VITALS: BP 123/65
[2020-06-17] MEDS: NORCO, ANEXSIA 5/325MG TABLET (HYDROcodone/ACETAMINOPHEN) PO PRN (22:36)
[2020-06-18 06:00] VITALS: BP 100/55
[2020-06-18 06:48] LABS: HEMATOCRIT 30.1 % (36.0-47.0); HEMOGLOBIN 9.9 g/dl (12.0-15.5); MEAN CORPUSCULAR HGB CONC 32.9 g/dl (32.0-36.5); PLATELET COUNT, AUTOMATED 190 10^3/uL (150-450); RED BLOOD COUNT 3.54 10^6/uL (4.00-5.40); WHITE BLOOD COUNT 2.2 10^3/uL (4.0-10.0)
[2020-06-18 07:07] LABS: BLOOD UREA NITROGEN 15 MG/DL (7-18); C REACTIVE PROTEIN QUANTITATIV 4.05 MG/DL (0.00-0.30); CALCIUM LEVEL 8.9 MG/DL (8.8-10.2); CARBON DIOXIDE LEVEL 32 MEQ/L (21-32); CHLORIDE LEVEL 99 MEQ/L (98-107); CREATININE FOR GFR 0.95 MG/DL (0.55-1.30); ERYTHROCYTE SEDIMENTATION RATE 83 mm/hr (0-30); GLOMERULAR FILTRATION RATE > 60.0 (>39); GLUCOSE, FASTING 178 MG/DL (70-100); POTASSIUM SERUM 4.1 MEQ/L (3.5-5.1); SODIUM LEVEL 134 MEQ/L (136-145)
[2020-06-18] MEDS: ADVAIR HFA 230/21MCG INHALER INH SCH (07:23)
[2020-06-18] MEDS: TIOTROPIUM INHALER/CAPSULE (SPIRIVA) INH SCH (07:23)
[2020-06-18] MEDS: VARENICLINE 1 MG TABLET PO SCH (09:43)
[2020-06-18] MEDS: PANTOPRAZOLE 40MG TAB (PROTONIX) PO SCH (09:43)
[2020-06-18] MEDS: diphenhydrAMINE 25MG CAP PO PRN (09:43)
[2020-06-18] MEDS: FOLIC ACID 1 MG TAB PO SCH (09:43)
[2020-06-18] MEDS: GABAPENTIN 300 MG CAP PO SCH (09:43)
[2020-06-18] MEDS: BACTRIM 160MG/800MG DS TAB PO SCH (09:43)
[2020-06-18] MEDS: FERROUS SULFATE 325MG TAB PO SCH (09:43)
[2020-06-18] MEDS: oxyBUTYnin *DITROPAN XL* 5 MG TABCR PO SCH (09:43)
[2020-06-18] MEDS: CLOPIDOGREL 75 MG TAB PO SCH (09:43)
[2020-06-18 09:44] VITALS: BP 103/55
[2020-06-18] MEDS: LISINOPRIL *2.5 MG* TAB PO SCH (09:44)
[2020-06-18] MEDS: CARVedilol 3.125 MG TAB PO SCH (09:45)
[2020-06-18] MEDS: ENOXAPARIN 40MG/0.4ML SYRINGE (J1650 PER 10MG) SC SCH (09:46)
[2020-06-18] MEDS ORDERED: DIPH25CA32 PO (10:40)
[2020-06-18] MEDS ORDERED: SULF1TAB93 PO (10:40)
--- NOTE | 2020-06-18 10:44 | DS.PDOC ---
Discharge Summary General Date of Admission Jun 13, 2020 at 05:12 Date of Discharge 06/18/20 Primary Care Physician: ROME SHERMAN PA-C Attending Physician: FRANCHESKA COREA MD Discharge Summary PROCEDURES PERFORMED DURING STAY: None ADMITTING DIAGNOSES: 1. Urosepsis secondary to chronic suprapubic urinary catheter 2. COPD 3. Hx of CAD 4. Chronic low back and neck pain 5. HTN 6. Mood disorder 7. HLD 8. GERD 9. Chronic iron deficiency anemia 10. Pancytopenia 11. Hx of hepatitis C DISCHARGE DIAGNOSES: 1. UTI 2. COPD 3. Hx of CAD 4. Chronic low back and neck pain 5. HTN 6. Mood disorder 7. HLD 8. GERD 9. Chronic iron deficiency anemia 10. Pancytopenia 11. Hx of hepatitis C COMPLICATIONS/CHIEF COMPLAINT: UTI. HISTORY OF PRESENT ILLNESS: Allyssa Kamara is a 75 YO F with history of COPD, urinary retention (chronic suprapubic catheter), hx colon resection (colostomy in RLQ) who presents to the ED with 1 week lower abdominal pain, subjective fevers, chills, and shortness of breath. She reports her symptoms started with lower abdominal pain, which she normally feels at the ends of each month right before she is scheduled to see ur ology to have her catheter changed. She is currently scheduled to have her catheter changed at the end of this week. Yesterday, she noticed her urine was "beet red." Her lower abdominal pain has been worsening over the past week to the point where she has lost her appetite and is unable to do as much as she normally does. She also reports feeling short of breath. At home she normally uses her oxygen concentrator when she feels this way and feels better. She has been coughing and producing clear sputum. HOSPITAL COURSE: On admission, patient had a WBC that appeared normal but was elevated from her low baseline level due to hx of pancytopenia. Pt was tachycardic in the 120s and had a UA concerning for elevated leukocyte esterase, WBCs and positive nitrites. A CT Abdomen/Pelvis demonstrated mild left-sided hydroureteronephrosis without any obstructing stones. Patient was started on empiric Rocephin therapy due to recent hx of proteus growing in urine which was Rocephin sensitive. Pt was given IV morphine for pain, zofran for nausea and was continued on all home medications. Day #2 (06/14/2020), her subrapubic catheter was replaced and she presented with fever. UA culture was pending. She was also given a fentanyl patch and [place] three times a day PRN due to chronic low back and neck pain. She follows pain management not in [place]. Day #3 (06/15/2020), UA culture grew MRSA, Acinetobacter baumannii, S. aureus, Stenotrophomonas maltophilia. Due to multiple antibiotic allergies (penicillins, quinolones, sulfa antibiotics), pt was started on Vancomycin to cover for MRSA. On day #4 (06/16/2020), patients fevers were monitored and pain controlled. On day #5 (06/17/2020), a consult was placed with Dr. Scott for recommendations on infection vs. colonization of chronic catheter and adequate PO antibiotics for treatment on discharge. Dr. Scott recommended Trimethoprim/Sulfamethoxazole with pre-treatment with Benadryl 30 minutes before. Pt was given this regimen on 06/17/2020 and reported no adverse events or reaction the following morning. Dr. Scott also suspects patient has cirrhosis at this time due to hx of hepatitis C with pancytopenia and splenomegaly. Patient should be screened for liver cancer with alpha fetoprotein and liver ultrasound every 6 months. Alpha fetoprotein level came back normal at 4.2. Pt has now been afebrile for greater than 48 hours and is deemed stable for discharge today. DISCHARGE MEDICATIONS: Please see below. ALLERGIES: Please see below. PHYSICAL EXAMINATION ON DISCHARGE: VITAL SIGNS: Please see below. GENERAL: Pt is lying comfortably in bed. No respiratory distress noted. HEENT: PERRL. EOM intact. Moist oral mucus membranes. NECK: No lymphadenopathy noted. CARDIOVASCULAR EXAMINATION: S1S2 present. RRR. No murmurs, rubs or gallops. RESPIRATORY EXAMINATION: Clear to auscultation in all lung esparza with poor inspiratory effort. No adventitious breath sounds appreciated. ABDOMINAL EXAMINATION: Tender to palpation in left and right lower quadrants around the site of suprapubic catheter. No erythema, warmth, or abnormalities surrounding site. Bowel sounds normoactive in all 4 quadrants. EXTREMITIES: No edema noted. Pulses 2+ SKIN: No obvious rashes, wounds and lesions. NEUROLOGICAL EXAMINATION: No obvious focal neurologic deficits. 5/5 strength equal and bilateral in upper and lower extremities. PSYCHIATRIC EXAMINATION: Normal mood and affect. LABORATORY DATA: Please see below. IMAGING: CT Abdomen/Pelvis (06/13/2020): Limited study secondary to beam hardening artifact from the left hip arthroplasty surgical hardware. Study is limited in the pelvis. Given limitation of the study no obvious ureteral or urinary bladder stones are seen. Mild left- sided hydroureteronephrosis without any obstructing stones. Urinary bladder is partially decompressed by suprapubic catheter. Air within the urinary bladder likely from suprapubic catheter. Infection should be ruled out by urine culture and the ER. Moderate fecal loading in the right colon at the right ostomy with periosteal hernia. No bowel dilatation or obstruction. Splenomegaly. Multiple postsurgical changes of bowel. PROGNOSIS: Fair ACTIVITY: As tolerated DIET: 2 gram sodium diet DISPOSITION/DISCHARGE PLAN: Patient is stable and discharged to home. DISCHARGE INSTRUCTIONS: Please follow-up with your PCP in 5-7 days. Please continue Bactrim for your UTI. As discussed, you may have liver cirrhosis. As such, you should receive AFP and Liver US monitoring every 6 months. Please discuss this with your PCP at follow- up. Please return to the ED should your symptoms fail to resolve or worsen. Thank you for allowing us to participate in your care. DISCHARGE CONDITION: Stable TIME SPENT ON DISCHARGE: Greater than 40 minutes. Vital Signs/I&Os Vital Signs Date Time Temp Pulse Resp B/P (MAP) Pulse Ox O2 Delivery O2 Flow Rate FiO2 06/18/20 09:44 103/55 06/18/20 06:00 96.6 81 16 97 Room Air I&O- Last 24 Hours up to 6 AM 06/18/20 06:00 Intake Total 1220 ml Output Total 2000 ml Balance -780 ml Laboratory Data Labs 24H Laboratory Tests 2 06/17/20 16:48: Bedside Glucose (Misc Panel) 241H 06/18/20 06:22: Nucleated Red Blood Cells % (auto) 0.0, Erythrocyte Sedimentation Rate 83H, Anion Gap 3L, Glomerular Filtration Rate > 60.0, Calcium Level 8.9, C-Reactive Protein, Quantitative 4.05H, Tumor Marker Alpha Fetoprotein 4.2 CBC/BMP Laboratory Tests 06/18/20 06:22 FSBS Laboratory Tests Test 06/17/20 16:48 Range/Units Bedside Glucose (Misc Panel) 241 83-110 MG/DL Microbiology Microbiology 06/13/20 Urine Culture - Final, Complete Acinetobacter Baumannii Comple Staphylococcus Aureus Staph.aureus Methicillin Resis Stenotrophomonas Maltophilia 06/13/20 Respiratory Virus Panel (PCR) ([place]) - Final, Complete 06/13/20 Blood Culture - Final, Complete NO GROWTH AFTER 5 DAYS 06/13/20 Blood Culture - Final, Complete NO GROWTH AFTER 5 DAYS Discharge Medications Scheduled Carvedilol (Carvedilol) 3.125 Mg Tablet, 3.125 MG PO BID, (Reported) Clopidogrel Bisulfate (Clopidogrel) 75 Mg Tablet, 75 MG PO DAILY, (Reported) Fentanyl (Fentanyl) 12 Mcg Patch.td72, 12 MCG TD Q3RD, (Reported) Ferrous Sulfate (Ferrous Sulfate) 325 Mg Tab, 325 MG PO DAILY, (Reported) Folic Acid (Folic Acid) 1 Mg Tab, 1 MG PO BID, (Reported) Gabapentin (Gabapentin) 600 Mg Tablet, 600 MG PO TID, (Reported) Glimepiride (Glimepiride) 2 Mg Tablet, 1 MG PO DAILY, (Reported) Lisinopril (Lisinopril) 2.5 Mg Tablet, 2.5 MG PO DAILY, (Reported) Methenamine Hippurate (Methenamine Hippurate) 1 Gm Tab, 1 GRAM PO BID, (Repo rted) Mirabegron (Myrbetriq) 50 Mg Tab.er.24h, 50 MG PO DAILY, (Reported) Mirtazapine (Remeron) 30 Mg Tablet, 30 MG PO QHS, (Reported) Montelukast Sodium (Montelukast Sodium) 10 Mg Tablet, 10 MG PO QHS, (Reported) Oxybutynin Chloride (Oxybutynin Chloride ER) 5 Mg Tab.er.24, 5 MG PO DAILY, (Reported) Pantoprazole Sodium (Pantoprazole Sodium) 40 Mg Tablet.dr, 40 MG PO DAILY, (Reported) Salmeterol/Fluticasone (Advair 500-50 Diskus) 1 Each Blst.w.dev, 1 PUFF INH BID, (Reported) Simvastatin (Simvastatin) 20 Mg Tab, 20 MG PO QHS, (Reported) Sulfamethoxazole/Trimethoprim (Sulfamethoxazole-Tmp Ds Tablet) 1 Each Tablet, 1 TAB PO BID Tiotropium [place] (Spiriva) 18 Mcg Cap.w.dev, 1 PUFF INH DAILY, (Reported) Trazodone HCl (Trazodone HCl) 100 Mg Tablet, 200 MG PO QHS, (Reported) Varenicline (Chantix) 1 Mg Tablet, 1 MG PO BID, (Reported) Scheduled PRN Albuterol Sulfate (Proair Hfa) 8.5 Gm Hfa.aer.ad, 2 PUFF INH Q4H PRN for S HORTNESS OF BREATH, (Reported) Baclofen (Baclofen) 10 Mg Tab, 10 MG PO TID PRN for MUSCLE SPASMS, (Reported) Diphenhydramine HCl (Diphenhydramine HCl) 25 Mg Capsule, 25 MG PO Q6HP PRN for ITCHING Hydrocodone/Acetaminophen ([place] 10-325 Tablet) 1 Each Tablet, 1 TAB PO TID PRN for PAIN, (Reported) Allergies Coded Allergies: Contrast Media (Verified Allergy, Severe, ANAPHYLAXIS, 03/08/20) SOB, HIVES Penicillins (Verified Allergy, Intermediate, HIVES, 03/08/20) Sulfa (Sulfonamide Antibiotics) (Verified Allergy, Mild, ITCHING, 03/08/20) sulfamethoxazole (Verified Allergy, Mild, ITCHING, 03/08/20) trimethoprim (Verified Allergy, Mild, ITCHING, 03/08/20) Quinolones (Verified Allergy, Unknown, RED STREAKS UP FOREARM AND ITCHING, 03/08/20) amitriptyline (Verified Adverse Reaction, Intermediate, PASSES OUT, 03/08/20) aspirin (Verified Adverse Reaction, Mild, TUNNEL/BLURRY VISION, 03/08/20) GME ATTESTATION GME ATTESTATION My faculty preceptor for this patient encounter was physically present during the encounter and was fully available. All aspects of the patient interview, examination, medical decision making process, and medical care plan development were reviewed and approved by the faculty preceptor. The faculty preceptor is aware and concurs with the plan as stated in the body of this note and will attest to such by his/her cosignature. ATTENDING NOTE Attending attestation: Patient seen and examined independently. Agree with resident's note. RACH BURGESS DO Jun 18, 2020 10:44 FRANCHESKA COREA MD Jun 19, 2020 06:49
[2020-06-18] MEDS: NORCO, ANEXSIA 5/325MG TABLET (HYDROcodone/ACETAMINOPHEN) PO PRN (10:50)
== END 2020-06-18 13:42 | disposition home health service (06) | DRG 700 ==
LOC: M ED 22:48 → M ED INP 06-13 05:12 → M MSPAV 06-13 15:47
PROVIDERS: ADMIT Internal Medicine; ATTEND Internal Medicine
DX: T83.518A Infection and inflammatory reaction due to other urinary catheter, initial encounter (principal); J44.9 Chronic obstructive pulmonary disease, unspecified; R33.9 Retention of urine, unspecified; F32.9 Major depressive disorder, single episode, unspecified; I25.10 Atherosclerotic heart disease of native coronary artery without angina pectoris; G47.00 Insomnia, unspecified; I12.9 Hypertensive chronic kidney disease with stage 1 through stage 4 chronic kidney disease, or unspecified chronic kidney disease; E78.5 Hyperlipidemia, unspecified; K21.9 Gastro-esophageal reflux disease without esophagitis; M81.0 Age-related osteoporosis without current pathological fracture; R13.10 Dysphagia, unspecified; N18.9 Chronic kidney disease, unspecified; E11.42 Type 2 diabetes mellitus with diabetic polyneuropathy; E11.22 Type 2 diabetes mellitus with diabetic chronic kidney disease; Z93.0 Tracheostomy status; G89.29 Other chronic pain; K74.60 Unspecified cirrhosis of liver; D50.9 Iron deficiency anemia, unspecified; B95.62 Methicillin resistant Staphylococcus aureus infection as the cause of diseases classified elsewhere; Z96.642 Presence of left artificial hip joint; Z87.891 Personal history of nicotine dependence; Z90.49 Acquired absence of other specified parts of digestive tract; Z90.13 Acquired absence of bilateral breasts and nipples; Y84.6 Urinary catheterization as the cause of abnormal reaction of the patient, or of later complication, without mention of misadventure at the time of the procedure; Z79.02 Long term (current) use of antithrombotics/antiplatelets; Z79.84 Long term (current) use of oral hypoglycemic drugs; Z79.899 Other long term (current) drug therapy; Z88.0 Allergy status to penicillin; Z88.1 Allergy status to other antibiotic agents; Z88.2 Allergy status to sulfonamides; Z88.6 Allergy status to analgesic agent; Z20.828 Contact with and (suspected) exposure to other viral communicable diseases; Z91.041 Radiographic dye allergy status

== ENCOUNTER → 2020-09-25 | Outpatient (REF) | payer MEDICARE, MEDICAID ==
[~2020-09-25] MED LIST changes: -LISI-542 PO; +LISI-898 PO; +MONT10TA10 PO; -MONT5TAB2 PO; +MYRB50TA PO; +OXYB-54 PO; +PANT-23 PO; +SIME80CH5 PO; -SIME80TA PO; +SULF1TAB93 PO
[2020-09-25 18:14] LABS: HEMATOCRIT 36.1 % (36.0-47.0); HEMOGLOBIN 12.2 g/dl (12.0-15.5); MEAN CORPUSCULAR HEMOGLOBIN 29.9 pg (27.0-33.0); MEAN CORPUSCULAR HGB CONC 33.8 g/dl (32.0-36.5); MEAN CORPUSCULAR VOLUME 88.5 fl (80.0-96.0); PLATELET COUNT, AUTOMATED 168 10^3/uL (150-450); RED BLOOD COUNT 4.08 10^6/uL (4.00-5.40); WHITE BLOOD COUNT 3.6 10^3/uL (4.0-10.0)
[2020-09-25 18:27] LABS: HEMOGLOBIN A1c 5.7 %
[2020-09-25 18:28] LABS: INR 0.96; PROTHROMBIN TIME 12.9 SECONDS (12.5-14.3)
[2020-09-25 18:49] LABS: ALBUMIN 3.6 GM/DL (3.2-5.2); ALT/SGPT 18 U/L (12-78); BILIRUBIN,TOTAL 0.4 MG/DL (0.2-1.0); BLOOD UREA NITROGEN 12 MG/DL (7-18); CALCIUM LEVEL 8.9 MG/DL (8.8-10.2); CARBON DIOXIDE LEVEL 28 MEQ/L (21-32); CHLORIDE LEVEL 104 MEQ/L (98-107); CREATININE FOR GFR 0.86 MG/DL (0.55-1.30); FREE T4 1.04 NG/DL (0.76-1.46); GLOMERULAR FILTRATION RATE > 60.0 (>39); GLUCOSE, FASTING 110 MG/DL (70-100); POTASSIUM SERUM 4.4 MEQ/L (3.5-5.1); SODIUM LEVEL 138 MEQ/L (136-145); TOTAL PROTEIN 7.4 GM/DL (6.4-8.2)
== END ==
LOC: M SFHCADAM 13:34
PROVIDERS: ATTEND Physician Assistant
DX: E11.29 Type 2 diabetes mellitus with other diabetic kidney complication (principal); N18.31 Chronic kidney disease, stage 3a; I11.9 Hypertensive heart disease without heart failure; R16.1 Splenomegaly, not elsewhere classified
CPT/HCPCS: 80053; 82140; 83036; 84439; 84443; 85027; 85610; 85730; G0463

== ENCOUNTER → 2021-01-02 | Outpatient (CLI) | payer MEDICARE, MEDICAID ==
[~2021-01-02] MED LIST changes: +BACTDSTA PO; +GABA-283 PO; -GABA-845 PO; -SULF1TAB93 PO
--- NOTE | 2021-01-02 14:17 | REP ---
INDICATION: COUGH COMPARISON: 06/30/2019 as well as multiple other prior exams. TECHNIQUE: PA/Lateral FINDINGS: Lungs: There are mild chronic ill-defined parenchymal opacities posteriorly and inferiorly which are stable. No new infiltrate is seen. Heart: Normal in size. Mediastinum: There is calcification of the thoracic aorta. The mediastinal silhouette is unchanged. Pleural angles: Unremarkable.. Bones and soft tissues: Unremarkable. IMPRESSION: Stable chronic changes. No superimposed acute infiltrate identified. <Electronically signed by Ramsey Hanson > 01/02/21 [id number]
== END ==
LOC: M ADAMS 13:47
PROVIDERS: ATTEND Physician Assistant
DX: R05 Cough (principal)

== ENCOUNTER 2021-02-04 10:28 | Emergency (ER) | payer MEDICARE, MEDICAID ==
[~2021-02-04] VITALS: Ht 177.8 cm; Wt 75.0 kg
[2021-02-04 12:29] LABS: BASO % 0.4 % (0.0-1.0); EOS # 0.1 10^3/uL (0.0-0.5); EOS % 1.9 % (0.0-3.0); HEMATOCRIT 32.6 % (36.0-47.0); HEMOGLOBIN 10.9 g/dl (12.0-15.5); LYMPH # 0.8 10^3/uL (1.5-5.0); LYMPH % 16.8 % (24.0-44.0); MEAN CORPUSCULAR HEMOGLOBIN 28.3 pg (27.0-33.0); MEAN CORPUSCULAR HGB CONC 33.4 g/dl (32.0-36.5); MEAN CORPUSCULAR VOLUME 84.7 fl (80.0-96.0); MONO # 0.8 10^3/uL (0.0-0.8); MONO % 15.9 % (2.0-8.0); NEUTROPHILS # 3.1 10^3/uL (1.5-8.5); NEUTROPHILS % 64.6 % (36.0-66.0); PLATELET COUNT, AUTOMATED 139 10^3/uL (150-450); RED BLOOD COUNT 3.85 10^6/uL (4.00-5.40); WHITE BLOOD COUNT 4.8 10^3/uL (4.0-10.0)
[2021-02-04 12:51] LABS: CALCIUM LEVEL 8.5 MG/DL (8.8-10.2); CREATININE FOR GFR 1.17 MG/DL (0.55-1.30); GLOMERULAR FILTRATION RATE 48.1 (>39); POTASSIUM SERUM 4.2 MEQ/L (3.5-5.1)
[2021-02-04] MEDS ORDERED: LIDOCAINE 1% SDV 5ML VIAL DILUENT ONE (13:05)
[2021-02-04] MEDS ORDERED: cefTRIAXone SOD 1GM VIAL (J0696 PER 250MG) IM ONE (13:05)
[2021-02-04] MEDS ORDERED: cefTRIAXone SOD 1 GM in D5W MINI-BAG PLUS 50 ML IV ONE (13:05)
[2021-02-04] MEDS ORDERED: CEPH500C PO (13:34)
[2021-02-04 14:57] VITALS: BP 155/69
== END 2021-02-04 15:13 | disposition home or self-care (01) ==
LOC: M ED 10:28 → EDBD 10:28 → M ED 15:13
DX: N39.0 Urinary tract infection, site not specified (principal); E11.9 Type 2 diabetes mellitus without complications; I10 Essential (primary) hypertension; E78.5 Hyperlipidemia, unspecified; N18.9 Chronic kidney disease, unspecified; K21.9 Gastro-esophageal reflux disease without esophagitis; Z86.19 Personal history of other infectious and parasitic diseases; J44.9 Chronic obstructive pulmonary disease, unspecified; Z96.0 Presence of urogenital implants; Z87.891 Personal history of nicotine dependence; Z79.899 Other long term (current) drug therapy; Z91.041 Radiographic dye allergy status; Z88.0 Allergy status to penicillin; Z88.2 Allergy status to sulfonamides; Z88.8 Allergy status to other drugs, medicaments and biological substances
CPT/HCPCS: 80048; 81001; 85025; 87088; 96372; 99284; J0696

== ENCOUNTER 2021-03-16 22:29 | Inpatient (IN) | payer MEDICARE, MEDICAID ==
[~2021-03-16] VITALS: Ht 170.2 cm; Wt 80.3 kg
[~2021-03-16 22:29] MED LIST changes: +CEPH500C PO; -LISI2.5T2 PO; +LISI2.5T9 PO
[2021-03-16] MEDS ORDERED: NALOXONE 2MG/2ML SYRINGE (J2310 PER 1MG) IV ONE (22:30)
[2021-03-16] MEDS ORDERED: NALOXONE 2MG/2ML SYRINGE (J2310 PER 1MG) As Ordered ONE (22:37)
[2021-03-16] MEDS ORDERED: NS 1,000 ML IV ONE (22:40)
--- NOTE | 2021-03-16 23:02 | REPVR ---
PROCEDURE INFORMATION: Exam: XR Chest Exam date and time: 03/16/2021 10:52 PM Age: 76 years old Clinical indication: Other: Altered mental status TECHNIQUE: Imaging protocol: XR of the chest. Views: 1 view. COMPARISON: DX CHEST 2 VIEW 01/02/2021 1:28 PM FINDINGS: Lungs: There are no interval infiltrates. Pleural spaces: Unremarkable. No pleural effusion. No pneumothorax. Heart/Mediastinum: Unremarkable. No cardiomegaly. Bones/joints: Unremarkable. Soft tissues: There are moderately generous overlying soft tissues. Other findings: Rotation to the left. IMPRESSION: Negative rotated chest without significant change from 01/02/2021. Electronically signed by: Lewis Hernandez On 03/16/2021 23:01:56 PM
--- NOTE | 2021-03-16 23:06 | REPVR ---
PROCEDURE INFORMATION: Exam: CT Head Without Contrast Exam date and time: 03/16/2021 10:59 PM Age: 76 years old Clinical indication: Altered mental status/memory loss TECHNIQUE: Imaging protocol: Computed tomography of the head without contrast. Radiation optimization: All CT scans at this facility use at least one of these dose optimization techniques: automated exposure control; mA and/or kV adjustment per patient size (includes targeted exams where dose is matched to clinical indication); or iterative reconstruction. COMPARISON: CT Head without contrast 03/30/2020 11:35 AM FINDINGS: Brain: There is slight prominence of the peripheral sulci. Slight prominence of perivascular spaces at the base of the brain, left greater than right. Cerebral ventricles: There is slight prominence of the central ventricular system. Paranasal sinuses: Minimal right sphenoid sinus mucosal thickening. Mastoid air cells: Visualized mastoid air cells are well aerated. Bones/joints: Unremarkable. No acute fracture. Soft tissues: Unremarkable. IMPRESSION: 1. Minimal diffuse atrophy which is similar to 03/30/2020. 2. Minimal sphenoid sinus disease which is decreased. 3. Otherwise negative noncontrast head CT. Electronically signed by: Lewis Hernandez On 03/16/2021 23:05:36 PM
[2021-03-16 23:10] LABS: HEMATOCRIT 34.1 % (36.0-47.0); MEAN CORPUSCULAR HEMOGLOBIN 28.1 pg (27.0-33.0); MEAN CORPUSCULAR HGB CONC 32.3 g/dl (32.0-36.5); PLATELET COUNT, AUTOMATED 200 10^3/uL (150-450); RED BLOOD COUNT 3.92 10^6/uL (4.00-5.40); WHITE BLOOD COUNT 3.8 10^3/uL (4.0-10.0)
[2021-03-16 23:37] LABS: BASOPHILS 1 % (0-1); EOSINOPHILS 3 % (0-3); LYMPHOCYTES 35 % (16-44); MONOCYTES 15 % (0-5); NEUTROPHILS 45 % (28-66); PLATELET ESTIMATE NORMAL (NORMAL)
[2021-03-16 23:39] LABS: AMPHETAMINES LEVEL URINE NEGATIVE (NEGATIVE); BARBITURATES URINE NEGATIVE (NEGATIVE); BENZODIAZEPINES URINE NEGATIVE (NEGATIVE); CANNABINOIDS URINE NEGATIVE (NEGATIVE); COCAINE METABOLITE URINE NEGATIVE (NEGATIVE); METHADONE URINE NEGATIVE (NEGATIVE); OPIATES URINE POSITIVE (NEGATIVE); PHENCYCLIDINE URINE NEGATIVE (NEGATIVE)
[2021-03-16 23:46] LABS: ACETAMINOPHEN LEVEL 32.8 UG/ML (10.0-30.0); ALBUMIN 2.5 GM/DL (3.2-5.2); ALT/SGPT 271 U/L (12-78); BILIRUBIN,DIRECT 1.3 MG/DL (0.0-0.2); BILIRUBIN,TOTAL 1.7 MG/DL (0.2-1.0); BLOOD UREA NITROGEN 31 MG/DL (7-18); CALCIUM LEVEL 8.2 MG/DL (8.8-10.2); CARBON DIOXIDE LEVEL 24 MEQ/L (21-32); CHLORIDE LEVEL 106 MEQ/L (98-107); CK-MB VALUE MASS 1.5 NG/ML (<3.6); CPK CREATINE PHOSPHOKINASE 83 U/L (26-192); CREATININE FOR GFR 2.18 MG/DL (0.55-1.30); ETHYL ALCOHOL (ETHANOL) 0.003 % (0.000-0.010); GLOMERULAR FILTRATION RATE 23.4 (>39); GLUCOSE, FASTING 122 MG/DL (70-100); MB/CK RELATIVE INDEX 1.81 (< OR =4); SALICYLATE LEVEL < 1.7 MG/DL (5.0-30.0); SODIUM LEVEL 137 MEQ/L (136-145); TOTAL PROTEIN 6.2 GM/DL (6.4-8.2); TROPONIN I < 0.02 NG/ML (< 0.10)
[2021-03-16 23:54] LABS: OSMOLALITY SERUM 293 MOSM/KG (280-301)
[2021-03-17] MEDS ORDERED: NS 1,000 ML IV ONE (01:30)
[2021-03-17] MEDS ORDERED: D5W IV ONE ×2 (02:30→05:30)
[2021-03-17] MEDS ORDERED: ACETYLCYSTEINE IV ONE ×2 (02:30→05:30)
[2021-03-17 02:55] LABS: RSV AMPLIFICATION NEGATIVE (NEGATIVE)
[2021-03-17] MEDS ORDERED: HYDR-4517 PO (03:36)
[2021-03-17] MEDS ORDERED: DOCU100C17 PO (03:36)
[2021-03-17] MEDS ORDERED: MECL25CH45 PO (03:36)
[2021-03-17] MEDS ORDERED: LYRI150C PO (03:36)
[2021-03-17] MEDS ORDERED: OXYB10TA23 PO (03:36)
[2021-03-17] MEDS ORDERED: CEPH500C PO (03:36)
[2021-03-17] MEDS ORDERED: HOME MED LIST COMPLETE! XX SCH (03:40)
[2021-03-17] MEDS: NS 1,000 ML IV SCH ×3 (04:00→22:17)
--- NOTE | 2021-03-17 04:05 | HPEPDOC ---
General Date of Admission March 17, 2021 Date of Service: Mar 17, 2021 Chief Complaint The patient is a 76-year-old female admitted with a reason for visit of Unresponsive. Source: Patient, Family History of Present Illness Mrs. Kamara is a 76-year-old female with chronic pain and ostomy secondary to SBO who presents with altered mental status. Patient is a poor historian and does not remember what happened. I was able to speak with the son, Robinson ([phone]). He tells me that patient lives home alone and independent. There is a nurse that visits her. Lately, patient has had poor oral intake. He has been trying to have a drink Ensure, but she just leaves it on the table. About 2 days ago she is complaining of left ear pain. She went to the urgent ca re for evaluation and was put on cephalexin. Urgent care also recommended warm compress for the pain and can take Tylenol as needed if warm compress did not control pain. Otherwise, son has noticed that patient has been more fatigued and lethargic. He suspects that she was so fatigued, she did not get up to get a warm compress and took too much Tylenol. This evening he called the patient and she did not cone picker. She had a neighbor come and see her and she was found altered. EMS was called. Patient was brought into the ED and received 2 rounds of Narcan. Patient was found to have acute renal failure most likely secondary to poor oral intake. Patient was on fentanyl, gabapentin, and pregabalin and this most likely had made her lethargic. Otherwise, her Tylenol levels were elevated and poison control was contacted. Recommended Acetadote and trending labs. When I saw the patient, she was lethargic and yawning. Her memory was poor. She currently denies any pain. She reports depression because her daughter recently moved away. Otherwise she denies any suicidal ideation or thoughts of harming herself. Patient will be admitted for acute renal failure and toxic metabolic encephalopathy. Home Medications Scheduled Carvedilol (Carvedilol) 3.125 Mg Tablet, 3.125 MG PO BID, (Reported) Cephalexin (Cephalexin) 500 Mg Capsule, 500 MG PO QID, (Reported) STARTED ON 03/14/21 Clopidogrel Bisulfate (Clopidogrel) 75 Mg Tablet, 75 MG PO DAILY, (Reported) Fentanyl (Fentanyl) 12 Mcg Patch.td72, 12 MCG TD Q3RD, (Reported) Ferrous Sulfate (Ferrous Sulfate) 325 Mg Tab, 325 MG PO DAILY, (Reported) Folic Acid (Folic Acid) 1 Mg Tab, 1 MG PO BID, (Reported) Gabapentin (Gabapentin) 600 Mg Tablet, 600 MG PO TID, (Reported) Glimepiride (Glimepiride) 2 Mg Tablet, 2 MG PO DAILY, (Reported) Lisinopril (Lisinopril) 2.5 Mg Tablet, 2.5 MG PO DAILY, (Reported) Methenamine Hippurate (Methenamine Hippurate) 1 Gm Tab, 1 GRAM PO BID, (Reported) Mirabegron (Myrbetriq) 50 Mg Tab.er.24h, 50 MG PO DAILY, (Reported) Mirtazapine (Remeron) 30 Mg Tablet, 30 MG PO QHS, (Reported) Montelukast Sodium (Montelukast Sodium) 10 Mg Tablet, 10 MG PO QHS, (Reported) Oxybutynin Chloride (Oxybutynin Chloride ER) 10 Mg Tab.er.24, 10 MG PO BID, (Reported) Pantoprazole Sodium (Pantoprazole Sodium) 40 Mg Tablet.dr, 40 MG PO DAILY, (Reported) Pregabalin (Lyrica) 150 Mg Capsule, 150 MG PO BID, (Reported) Salmeterol/Fluticasone (Advair 500-50 Diskus) 1 Each Blst.w.dev, 1 PUFF INH BID, (Reported) Simvastatin (Simvastatin) 20 Mg Tab, 20 MG PO QHS, (Reported) Tiotropium [place] (Spiriva) 18 Mcg Cap.w.dev, 1 PUFF INH DAILY, (Reported) Trazodone HCl (Trazodone HCl) 100 Mg Tablet, 200 MG PO QHS, (Reported) Scheduled PRN Albuterol Sulfate (Proair Hfa) 8.5 Gm Hfa.aer.ad, 2 PUFF INH Q4H PRN for SHORTNESS OF BREATH, (Reported) Docusate Sodium (Docusate Sodium) 100 Mg Capsule, 100 MG PO BID PRN for CONSTIPATION, (Reported) Hydrocodone/Acetaminophen (Hydrocodone-Acetamin 10-325 mg) 1 Each Tablet, 1 TAB PO Q8H PRN for MODERATE/SEVERE PAIN (PS 5-10), (Reported) Meclizine HCl (Meclizine HCl) 25 Mg Tab.chew, 25 MG PO BID PRN for VERTIGO/DIZZINESS, (Reported) Allergies Coded Allergies: Contrast Media (Verified Allergy, Severe, ANAPHYLAXIS, 03/08/20) SOB, HIVES Penicillins (Verified Allergy, Intermediate, HIVES, 03/08/20) Sulfa (Sulfonamide Antibiotics) (Verified Allergy, Mild, ITCHING, 03/08/20) sulfamethoxazole (Verified Allergy, Mild, ITCHING, 03/08/20) trimethoprim (Verified Allergy, Mild, ITCHING, 03/08/20) Quinolones (Verified Allergy, Unknown, RED STREAKS UP FOREARM AND ITCHING, 03/08/20) amitriptyline (Verified Adverse Reaction, Intermediate, PASSES OUT, 03/08/20) morphine (Verified Adverse Reaction, Intermediate, tablet form makes her nauseous, 03/17/21) aspirin (Verified Adverse Reaction, Mild, TUNNEL/BLURRY VISION, 03/08/20) Past Medical History Medical History 1. 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 COPD 3. Depression 4. Insomnia 5. Hypertension 6. Hyperlipidemia 7. Reflux 8. Osteoporosis 9. Fatty liver 10. Splenomegaly 11. 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 Chronic pain from osteoarthritis in the lumbar spine, hips, feet 13. Peripheral neuropathy Surgical History 1. Bilateral mastectomy secondary to fibrocystic disease 2. Cholecystectomy 3. x2 4. Ovarian wedge resection 5. D&C 6. Colostomy secondary to bowel obstruction 7. 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 Appendectomy 9. Hysterectomy, total with BSO 10. Left hip replacement 11. Hernia repair 12. Cystoscopy with suprapubic catheter change 13. Hammertoe 14. Temporary nerve stimulator placed and removed 1 week later Family History Father: in his 50s. History of cerebral hemorrhage, bilateral leg amputation, diabetes Mother: in her 90s. History of cancer, unknown type Social History * Smoker: former Smoker Alcohol: Denies Drugs: denies A-FIB/CHADSVASC A-FIB History Current/History of A-Fib/PAF?: No Review of Systems Constitutional: Reports: Fatigue Eyes: Denies: Pain ENT: Denies: Sore Throat Skin: Denies: Rash Pulmonary: Denies: Dyspnea, Cough Cardiovascular: Denies: Chest Pain Gastrointestinal: Denies: Abdominal Pain Genitourinary: Denies: Dysuria Hematologic: Denies: Bruising Musculoskeletal: Denies: Muscle Pain Psych: Reports: Depression Physical Examination General Exam: Positive: Cooperative Eye Exam: Negative: Sclera icteric ENT Exam: Positive: Other ENT (Oral mucosa dry) Chest Exam: Positive: Diminished Heart Exam: Positive: Rate Normal, Regular Rhythm Abdomen Exam: Positive: Normal bowel sounds, Soft; Negative: Tenderness Neuro Exam: Positive: Normal Speech Psych Exam: Negative: Memory Intact Vital Signs Vital Signs Date Time Temp Pulse Resp B/P (MAP) Pulse Ox O2 Delivery O2 Flow Rate FiO2 03/17/21 02:16 74 18 95 Nasal Cannula 2.0 03/17/21 02:15 111/53 (72) 03/16/21 22:44 97.1 Laboratory Data Labs 24H Laboratory Tests 2 03/16/21 22:50: Neutrophils (%) (Auto) , Nucleated Red Blood Cells % (auto) 0.0, Neutrophils 45, Band Neutrophils 1, Lymphocytes (Manual) 35, Monocytes (Manual) 15H, Eosinophils (Manual) 3, Basophils (Manual) 1, Red Blood Cell Morphology NORMAL, Platelet Es timate NORMAL, Anion Gap 7L, Glomerular Filtration Rate 23.4L, Osmolality 293, Lactic Acid Level 1.8, Calcium Level 8.2L, Total Bilirubin 1.7H, Direct Bilirubin 1.3H, Aspartate Amino Transf (AST/SGOT) 334H, Alanine Aminotransferase (ALT/SGPT) 271H, Alkaline Phosphatase 100, Ammonia 24, Total Creatine Kinase 83, Creatine Kinase MB 1.5, Creatine Kinase MB Relative Index 1.81, Troponin I < 0.02, Total Protein 6.2L, Albumin 2.5L, Albumin/Globulin Ratio 0.7L, Thyroid Stimulating Hormone (TSH) 2.580, Salicylates Level < 1.7L, Acetaminophen Level 32.8H, Ethyl Alcohol Level 0.003 03/16/21 23:03: Urine Color HARVEY, Urine Appearance CLOUDYH, Urine pH 5.0, Urine Specific [place] 1.028, Urine Protein 1+H, Urine Glucose (UA) NEGATIVE, Urine Ketones NEGATIVE, Urine Blood NEGATIVE, Urine Nitrite NEGATIVE, Urine Bilirubin 1+H, Urine Urobilinogen 2.0H, Urine Leukocyte Esterase 2+H, Urine WBC (Auto) 154H, Urine RBC (Auto) 11H, Urine Hyaline Casts (Auto) 3, Urine Bacteria (Auto) 1+H, Urine Squamous Epithelial Cells 2, Urine Transitional Epithelial Cells 4, Urine Mucus (Auto) SMALL, Urine Yeast-Like Cells (Auto) MODERATEH, Urine Sperm (Auto) , Urine Opiates Screen POSITIVEH, Urine Methadone Screen NEGATIVE, Urine Barbiturates Screen NEGATIVE, Urine Phencyclidine Screen NEGATIVE, Urine Amphetamines Screen NEGATIVE, Urine Benzodiazepines Screen NEGATIVE, Urine Cocaine Metabolite Screen NEGATIVE, Urine Cannabinoids Screen NEGATIVE 03/17/21 01:45: Coronavirus (COVID-19)(PCR) NEGATIVE, Influenza Type A (RT-PCR) NEGATIVE, Influenza Type B (RT-PCR) NEGATIVE, Respiratory Syncytial Virus (PCR) NEGATIVE 03/17/21 02:52: Acetaminophen Level 26.6 CBC/BMP Laboratory Tests 03/16/21 22:50 Microbiology Microbiology 03/16/21 Urine Culture, Received Pending 03/16/21 Blood Culture, Received Pending Assessment/Plan Mrs. Kamara is a 76-year-old female with chronic pain and ostomy secondary to SBO who presents with altered mental status. She recently had an ear infection and was given cephalexin. Son reports that her oral intake has decreased which most likely caused the RODRIGO. Due to the RODRIGO, her levels of fentanyl, gabapentin, and pregabalin buildup and made her lethargic and altered. Since she was lethargic and altered, she took too much Tylenol. We will hold nephrotoxic agents and start patient on IV fluids. When renal function is improved, can consider restarting fentanyl. I spoke to the pharmacist. The 12 mcg fentanyl patch is equivalent to 15 mg of oxycodone a day. Since patient is still lethargic, will make oxycodone as needed. Plan / VTE VTE Prophylaxis Ordered?: Yes Plan Plan 1. Toxic encephalopathy Secondary to fentanyl, gabapentin, and pregabalin use in the setting of acute kidney injury Hold the fentanyl and substitute with oxycodone. Hold oxycodone if lethargic We will renally dose gabapentin and pregabalin Supportive care 2. Acute Kidney Injury Secondary to poor oral intake IV fluids Hold nephrotoxic agents such as lisinopril 3. Acetaminophen overdose Secondary to lethargy and altered mental status Spoke with poison control, recommend continuing with step 2 and step 3 of Acetadote. Request labs 2 hours prior to the completion of Acetadote 4. Left ear infection Continue cephalexin 5. Chronic pain Spoke with pharmacist. Fentanyl 12 mcg is equivalent to oxycodone 15 mg a day Since patient is still lethargic, will make oxycodone as needed Continue pregabalin and gabapentin renally dosed 6. Diabetes mellitus Hold glimepiride Carbohydrate consistent diet Sliding scale insulin 7. COPD Stable, not in exacerbation Continue Advair and Spiriva 8. Hyperlipidemia Continue simvastatin 9. Overactive bladder Hold oxybutynin as it can cause confusion Hold mirabegron 10. GERD Continue pantoprazole 11. DVT prophylaxis Heparin BETH ALLEN DO Mar 17, 2021 04:05
--- NOTE | 2021-03-17 04:32 | REPVR ---
PROCEDURE INFORMATION: Exam: US Retroperitoneal Limited, Kidneys Exam date and time: 03/17/2021 4:18 AM Age: 76 years old Clinical indication: Condition or disease; Kidney or ureter condition; Other: Jonny TECHNIQUE: Imaging protocol: Real-time ultrasound of the retroperitoneum with image documentation. Examination was focused on the kidneys. COMPARISON: Abdomen, limited US 11/24/2017 8:31 AM FINDINGS: Right kidney: The right kidney measures 10.3 cm in its cephalocaudad dimension and 3.8 x 4.4 cm in diameter. There is a renal cyst laterally measuring 3.1 x 2.4 x 2.6 cm. No mass or hydronephrosis. Left kidney: The left kidney measures 12.8 cm in its cephalocaudad dimension and 5.3 x 4.1 cm in diameter. No mass, cyst or hydronephrosis. Bladder: The urinary bladder is incompletely filled with Tamez catheter in position. IMPRESSION: 1. Right renal cyst measuring 3.1 x 2.4 x 2.6 cm. 2. Otherwise negative renal sonogram. Electronically signed by: Lewis Hernandez On 03/17/2021 04:31:30 AM
[2021-03-17] MEDS ORDERED: ALBUTEROL 90 MCG/ACT 8GM HFA INHALER INH PRN (05:25)
[2021-03-17] MEDS ORDERED: DOCUSATE SODIUM 100MG CAPSULE PO PRN (05:25)
[2021-03-17] MEDS ORDERED: oxyCODONE 5MG TAB PO PRN (05:25)
[2021-03-17 05:43] VITALS: BP 124/57
[2021-03-17 06:33] LABS: HEMATOCRIT 33.8 % (36.0-47.0); HEMOGLOBIN 11.2 g/dl (12.0-15.5); MEAN CORPUSCULAR HEMOGLOBIN 28.8 pg (27.0-33.0); MEAN CORPUSCULAR HGB CONC 33.1 g/dl (32.0-36.5); MEAN CORPUSCULAR VOLUME 86.9 fl (80.0-96.0); PLATELET COUNT, AUTOMATED 162 10^3/uL (150-450); RED BLOOD COUNT 3.89 10^6/uL (4.00-5.40); WHITE BLOOD COUNT 2.2 10^3/uL (4.0-10.0)
[2021-03-17 06:54] LABS: ALBUMIN 2.3 GM/DL (3.2-5.2); BILIRUBIN,TOTAL 1.2 MG/DL (0.2-1.0); CALCIUM LEVEL 7.4 MG/DL (8.8-10.2); CREATININE FOR GFR 1.87 MG/DL (0.55-1.30); GLOMERULAR FILTRATION RATE 27.9 (>39); POTASSIUM SERUM 4.4 MEQ/L (3.5-5.1); TOTAL PROTEIN 5.8 GM/DL (6.4-8.2)
[2021-03-17] MEDS: TIOTROPIUM INHALER/CAPSULE (SPIRIVA) INH SCH (07:11)
[2021-03-17] MEDS: ADVAIR HFA 230/21MCG INHALER INH SCH ×2 (07:11→19:50)
[2021-03-17] MEDS ORDERED: CEPHALEXIN 500 MG CAP PO SCH (09:00)
[2021-03-17] MEDS ORDERED: FLUBLOK(EGG FREE)(QUAD)INFLUENZA VACC 0.5ML SYRINGE 18YRS & OLDER IM ONE (09:00)
[2021-03-17] MEDS ORDERED: GABAPENTIN 300 MG CAP PO SCH (09:00)
[2021-03-17] MEDS ORDERED: PREGABALIN 75 MG CAP(LYRICA) PO SCH (09:00)
--- NOTE | 2021-03-17 09:12 | IPNPDOC ---
Text Note Date of Service The patient was seen on 03/17/21. Subjective: 76 y/o female who was admitted for encephalopathy. On exam Pt was a poor historian. Pt confirmed that she was prescribed an antibiotic for ear pain two days ago, and she had taken it as instructed. She was extremely lethargic and limited information was obtained. Her main physical complaint was left sided neck pain. On speaking to the patient's son, he confirmed that the patient was transported to the [facility] ED by ambulance after he found her extremely lethargic and weak. He confirmed that pt has been having left sided neck/ear pain which was diagnosed by urgent care as external ear infection and treated with antibiotics and Tylenol. Son says that the patient drinks lots of coffee and is chronically dehydrated. Review of systems: Pt denies headache, N/V, chest pain, difficulty breathing, palpitations, SOB, ABD pain, or urinary pain. Pt says that she has pain in her legs from chronic peripheral neuropathy. Pain on palpation of the left side neck swelling. Physical exam: General: Elderly female lying supine in her bed. Pt is extremely lethargic and is having difficulty keeping her eyes open and concentrating on the questions asked by medical team. Pt is in pain/ distress from swelling for her left neck. HEENT: PEARRL, EOMI, no scleral ictreus, moist membranes, Tender swelling with no distinguished border is present on left side that extends from just below the left ear to the middle of the neck. No erythema, pus, drainage, or heat felt on or around the mass. Heart: Normal S1 and S2. No extra heart sounds or murmurs. Lungs: Clear and equal BL lung sounds in all lobes. No wheezing, rhonchi, crackles, or stridor. Extremities: No edema BL, +2/4 BL pedal and posterior tibial pulses. Neurological: Pt has pain in both legs with palpation. No loss of sensation and weakness. Psych: Patient is Alert and oriented to person, place, time of day, but not to year. New imaging CT of the neck: "IMPRESSION: 1. Edentulous patient without definite bony erosions in the maxilla or mandible. 2. Soft tissue infectious/inflammatory changes in the left neck as described. 3. No defined fluid collection on this non-contrast study. 4. Likely reactive lymph nodes in the neck left greater than right without confluent lymphadenopathy. 5. Carotid vascular calcifications for which non-emergent ultrasound follow-up is recommended." Liver ultrasound: "IMPRESSION: 1. Enlarged liver with coarsened echotexture. 2. There is fluid in Rubin's space. 3. Mild atrophy of the right renal cortex. 4. Benign cortical cyst, left kidney. 5. Benign post cholecystectomy dilatation of the extrahepatic biliary tree." Assessment: 76 y/o female with PMHx of HepC (treated in 2017), COPD, depression, Insomnia, HTN, Hyperlipidemia, GE reflux, osteoporosis, NAFLD, Splenomegaly, Recurrent UTIs resistant to levaquin, OA causing chronic pain, and peripheral neuropathy. Pt presents with AMS that has a multifactorial etiology. Pt has elevated liver transaminitis secondary to acetaminophen toxicity, elevated BUN and Creatinine secondary to either dehydration or interstitial nephritis, UA shows UTI, and a left-sided neck mass likely cellulitis. Plan: # Encephalopathy possibly 2/2 to accumulation of gabapentin and pregabalin vs. UTI. - Head CT was negative for any acute changes. - D/C pregabalin and gabapentin 100mg BID and RODRIGO will be treated as below. - Pt's mental status will be monitored. - Clear liquid diet because of aspiration risk. Pt is on fall precautions. - Will update the patient's son on her status tomorrow. # RODRIGO likely 2/2 to dehydration or interstitial nephritis - Elevated BUN and Cr above baseline on last admission (01/23/21) - Renal ultrasound found no obstruction, eliminating post-renal RODRIGO. - Pt has received 2.5L NS, currently receiving 125cc/hour - Will monitor BUN and Cr to see if it improves. # Liver transaminitis likely 2/2 to Acetaminophen toxicity - Acetaminophen levels were elevated on admission - poison control was called and Acedote was started. - Acetaminophen levels are now decreased below toxicity threshold. - Pt has elevated Liver enzymes and normal ALP indicating hepatocyte damage. Will continue to trend Liver enzymes. - INR, PT, and PTT are elevated indicating loss of liver function. Will continue to monitor coagulation tests. - Pt ammonia level is not elevated - which makes encephalopathy less likely to be hepatic in origin. Will continue to monitor. - Liver ultrasound found enlarged liver with cortical echotexture. Unclear whether this damage is acute or from chronic NAFLD. # UTI - Patient has positive Leukocyte Esterase, elevated WBCs, and urine bacteria. - Pt has a history of UTI with E.Coli resistant to Levaquin. - Doxycycline to treat UTI. # Left-sided enlarged neck mass unclear etiology - Left side Tympanic membrane is clear and normal making otitis media unlikely - Mass in likely not an infection given presentation - no heat, no erythema on PE. - Neck CT found no abscess, soft tissue/ inflammatory changes were present consistent with cellulitis. - Antibiotic for UTI will also cover cellulitis. D/C cephalexin. # Chronic Pain management - Pt has peripheral neuropathy pain that is currently being managed with gabapentin, pregabalin, and oxycodone. - D/C Oxycodone and pregabalin. Continue gabapentin 100mg BID and add Morphine 1mg Q6H PRN. # Hypertension - Continue the patient on Carvedilol. # Diabetes mellitus Hold glimepiride Carbohydrate consistent diet Sliding scale insulin # COPD Stable, not in exacerbation Continue Advair, Spiriva, albuterol PRN # Hyperlipidemia Continue simvastatin # Overactive bladder Hold oxybutynin as it can cause confusion Hold mirabegron # GERD Continue pantoprazole. # DVT prophylaxis Heparin Code status: Full code. Disposition: Pending clinical improvement of encephlopathy. Stay expected at least 2 more nights. VS,Fishbone, I+O VS, Fishbone, I+O Laboratory Tests 03/16/21 22:50 03/17/21 06:14 Vital Signs Date Time Temp Pulse Resp B/P (MAP) Pulse Ox O2 Delivery O2 Flow Rate FiO2 03/17/21 07:10 14 03/17/21 06:40 95 Room Air 03/17/21 05:51 98.2 88 119/58 (78) 03/17/21 04:16 2.0 I&O- Last 24 Hours up to 6 AM 03/17/21 06:00 Output Total 800 ml Balance -800 ml GME ATTESTATION GME ATTESTATION My faculty preceptor for this patient encounter was physically present during the encounter and was fully available. All aspects of the patient interview, examination, medical decision making process, and medical care plan development were reviewed and approved by the faculty preceptor. The faculty preceptor is aware and concurs with the plan as stated in the body of this note and will attest to such by his/her cosignature. JESSICA HUGHES OMS-3 Mar 17, 2021 09:12 DARÍO RASHID DO Mar 17, 2021 16:17
[2021-03-17] MEDS ORDERED: MEROPENEM INJ 2 GM in NS 100 ML IV SCH (09:25)
[2021-03-17] MEDS ORDERED: ACETYLCYSTEINE 8,000 MG in D5W 1,000 ML IV ONE (09:30)
--- NOTE | 2021-03-17 10:26 | REPVR ---
PROCEDURE INFORMATION: Exam: CT Neck Without Contrast Exam date and time: 03/17/2021 8:48 AM Age: 76 years old Clinical indication: Neck pain; Additional info: Left neck pain R/O neck abscess, left ear infection, elvira TECHNIQUE: Imaging protocol: Computed tomography images of the neck without contrast. Radiation optimization: All CT scans at this facility use at least one of these dose optimization techniques: automated exposure control; mA and/or kV adjustment per patient size (includes targeted exams where dose is matched to clinical indication); or iterative reconstruction. COMPARISON: CR Soft Tissue Neck 04/08/2016 3:57 PM FINDINGS: Brain: Diffuse involutional changes in the visualized brain compatible with age. Orbital cavity: The orbits are intact. Paranasal sinuses: No air-fluid levels in the paranasal sinuses. Nasopharynx: Unremarkable. Dental: Edentulous patient. Oropharynx: Unremarkable. No significant tonsillar enlargement. Hypopharynx: Unremarkable. Larynx: Unremarkable. Normal epiglottis. Retropharyngeal space: Unremarkable. Submandibular/Parotid glands: Fatty stranding is present in the lateral left neck arising at the level of the external canal on extending anteriorly and inferiorly to involve the left parotid and left submandibular glands. Thyroid: Homogeneous thyroid. Lymph nodes: No lymphadenopathy. Likely reactive nodes along both sides of the neck. Trachea: Visualized trachea is unremarkable. Lungs: The included lungs are grossly clear with some apical pleural thickening. Esophagus: Patulous thoracic esophagus. Bones/joints: Osteopenia and degenerative changes present without acute fracture. No lytic or blastic disease. Soft tissues: No defined abscess although this is a noncontrast examination. IMPRESSION: 1. Edentulous patient without definite bony erosions in the maxilla or mandible. 2. Soft tissue infectious/inflammatory changes in the left neck as described. 3. No defined fluid collection on this noncontrast study. 4. Likely reactive lymph nodes in the neck left greater than right without confluent lymphadenopathy. 5. Carotid vascular calcifications for which nonemergent ultrasound follow-up is recommended. Electronically signed by: Tyler Shaw On 03/17/2021 10:26:17 AM
[2021-03-17] MEDS: HEPARIN SOD (PORCINE) 5000UNITS/ML 1ML VIAL/SYRINGE SC SCH ×2 (11:03→20:18)
[2021-03-17] MEDS: CLOPIDOGREL 75 MG TAB PO SCH (11:04)
[2021-03-17] MEDS: FERROUS SULFATE 325MG TAB PO SCH (11:04)
[2021-03-17] MEDS: PANTOPRAZOLE 40MG TAB (PROTONIX) PO SCH (11:05)
[2021-03-17] MEDS: CARVedilol 3.125 MG TAB PO SCH ×2 (11:05→20:21)
[2021-03-17] MEDS: FOLIC ACID 1 MG TAB PO SCH ×2 (11:05→20:18)
[2021-03-17] MEDS ORDERED: MORPHINE 2 MG/ML 1ML VIAL (J2270) IV PRN (12:00)
[2021-03-17 12:42] LABS: INR 1.56; PROTHROMBIN TIME 19.1 SECONDS (12.7-14.5)
[2021-03-17 12:43] LABS: PARTIAL THROMBOPLASTIN TIME 40.7 SECONDS (25.9-37.0)
[2021-03-17 12:55] LABS: ALBUMIN 2.1 GM/DL (3.2-5.2); BILIRUBIN,DIRECT 0.8 MG/DL (0.0-0.2); BILIRUBIN,TOTAL 1.1 MG/DL (0.2-1.0); TOTAL PROTEIN 5.6 GM/DL (6.4-8.2)
--- NOTE | 2021-03-17 13:41 | REP ---
INDICATION: transaminitis, acetaminophen overdose. COMPARISON: None. TECHNIQUE: 2D ultrasound evaluation of the abdomen was performed in multiple projections and supplemented by color Doppler. FINDINGS: The liver is normal in echogenicity with a slightly coarsened architecture. The liver is enlarged measuring 19 cm in vertical dimension at the midclavicular line. There is a small amount of fluid in Rubin's space. The gallbladder is surgically absent. There is post cholecystectomy dilatation of the extrahepatic biliary tree with the common bile duct measuring 9 mm in diameter. The right kidney measures 11.9 x 3.9 x 3.5 cm. The renal cortex is normal in echogenicity and measures 6 mm in thickness. There is no evidence of hydronephrosis. There is a benign cortical cyst in the interpolar region of the right kidney measuring 2.9 x 2.8 x 2.0 cm. The pancreas is unremarkable. IMPRESSION: 1. Enlarged liver with coarsened echotexture. 2. There is fluid in Rubin's space. 3. Mild atrophy of the right renal cortex. 4. Benign cortical cyst, left kidney. 5. Benign post cholecystectomy dilatation of the extrahepatic biliary tree. <Electronically signed by Javid Barajas > 03/17/21 [id number]
[2021-03-17 14:00] VITALS: BP 115/60
[2021-03-17] MEDS: DOXYCYCLINE HYCLATE 100 MG in D5W MINI-BAG PLUS 100 ML IV SCH (14:56)
[2021-03-17] MEDS ORDERED: THIAMINE 200MG 2ML VIAL IM ONE (16:00)
--- NOTE | 2021-03-17 16:51 | ECGEPIP ---
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
[2021-03-17] MEDS ORDERED: THIAMINE 200MG 2ML VIAL IV SCH (17:05)
[2021-03-17] MEDS: MONTELUKAST 10 MG TAB PO SCH (20:18)
[2021-03-17] MEDS: SIMVASTATIN 20 MG TAB PO SCH (20:19)
[2021-03-17] MEDS ORDERED: GABAPENTIN 100 MG CAP PO SCH (21:00)
[2021-03-17] MEDS ORDERED: MIRTAZAPINE 15 MG TAB PO SCH (21:00)
[2021-03-17] MEDS ORDERED: traZODone 100 MG TAB PO SCH (21:00)
[2021-03-17 21:54] LABS: ACETAMINOPHEN LEVEL 5.8 UG/ML (10.0-30.0); CALCIUM LEVEL 7.7 MG/DL (8.8-10.2); CREATININE FOR GFR 1.47 MG/DL (0.55-1.30); GLOMERULAR FILTRATION RATE 36.9 (>39); POTASSIUM SERUM 4.8 MEQ/L (3.5-5.1); TOTAL PROTEIN 5.7 GM/DL (6.4-8.2)
[2021-03-17 22:00] VITALS: BP 119/59
--- NOTE | 2021-03-17 22:03 | IPNPDOC ---
Text Note Date of Service The patient was seen on 03/17/21. NOTE Subjective: Contacted by nursing staff regarding patient's mental status, per RN Blanche, who had the patient this morning she was AOx3, but from her reports this evening by 0800 she was not oriented and had been getting progressively more somnolent as the day went on. On arriving in the room the patient was sleeping, nursing staff took vitals that were WNL outside of oxygen that was 89%, nasal cannula was applied. After rousing her awake she opened her eyes and will intermittently scratch her nose. Best (GCS E=3, V=4, M=5;12). Her daughter happened to call while I was in the room and I updated her as best as I was able to based on chart review. Per the daughter, she had spoken with her earlier this evening and the conversation was normal but then it was as if the patient had nodded off and didn't make sense. Objective: Vitals: See below General: Non toxic appearing female laying in bed with eyes closed snoring in no acute distress HEENT: NC, AT. no scleral icterus. No pharyngeal erythema, dry mucous membranes. Left sided pre-auricular/submandibular swelling that is tender to light palpation without surrounding erythema or edema Neck: No lymphadenopathy or JVD CV: RRR, Normal S1 and S2. No murmurs, gallops, or rubs. Resp: CTAB with full breath sounds. No wheezes, crackles, or rhonchi. No dullness to percussion. Abdomen: Bowel sounds present. Soft, NT, ND. Extremities: No swelling or edema. Assessment/Plan: #. Encephalopathy -I suspect this is not an acute altering of her mental status but is manufacturing sales representative of her mental status for most of the day, but without knowing her baseline, repeat work up is appropriate. -Reordering CBC for an emerging infectious process, though patient covered with Doxy, CBC showing pancytopenia with no differential, will defer to day team for further workup -transaminitis worsening, renal function, acetaminophen level improved. Contacted poison control who recommended repeat liver profile and INR at 0100, in the event transaminases are not downtrending/under 1000 or INR>2, they recommend an additional 16 hour NAC treatment. Will follow up repeat lab work at 0100. -Ammonia only mildly elevated, does not correspond with liver failure severity, will not start any new therapies based on this lab. - CT head w/o contrast with no acute findings - ABG showing 7.36/39.5/131 -Holding mirtazapine, trazodone, morphine, gabapentin -Gave 0.2 mg IV narcan with immediate increased response, GCS=15. Patient difficult to understand due to speech pattern but mental status SIGNIFICANTLY improved from prior. VS,Fishbone, I+O VS, Fishbone, I+O Laboratory Tests 03/16/21 22:50 03/17/21 06:14 Vital Signs Date Time Temp Pulse Resp B/P (MAP) Pulse Ox O2 Delivery O2 Flow Rate FiO2 03/17/21 20:21 98 116/81 03/17/21 14:00 97.9 17 95 Room Air 03/17/21 04:16 2.0 I&O- Last 24 Hours up to 6 AM 03/17/21 06:00 Output Total 800 ml Balance -800 ml GME ATTESTATION GME ATTESTATION My faculty preceptor for this patient encounter was physically present during the encounter and was fully available. All aspects of the patient interview, examination, medical decision making process, and medical care plan development were reviewed and approved by the faculty preceptor. The faculty preceptor is aware and concurs with the plan as stated in the body of this note and will attest to such by his/her cosignature. SAFIA FONG DO Mar 17, 2021 22:03
[2021-03-17 22:06] LABS: HEMATOCRIT 29.9 % (36.0-47.0); HEMOGLOBIN 9.9 g/dl (12.0-15.5); MEAN CORPUSCULAR HEMOGLOBIN 28.4 pg (27.0-33.0); MEAN CORPUSCULAR HGB CONC 33.1 g/dl (32.0-36.5); MEAN CORPUSCULAR VOLUME 85.7 fl (80.0-96.0); PLATELET COUNT, AUTOMATED 141 10^3/uL (150-450); RED BLOOD COUNT 3.49 10^6/uL (4.00-5.40); WHITE BLOOD COUNT 1.8 10^3/uL (4.0-10.0)
[2021-03-17] MEDS: THIAMINE INJection 500 MG in NS 100 ML IV SCH (22:17)
--- NOTE | 2021-03-17 22:21 | REPVR ---
PROCEDURE INFORMATION: Exam: CT Head Without Contrast Exam date and time: 03/17/2021 9:56 PM Age: 76 years old Clinical indication: Altered mental status/memory loss; Additional info: AMS TECHNIQUE: Imaging protocol: Computed tomography of the head without contrast. Radiation optimization: All CT scans at this facility use at least one of these dose optimization techniques: automated exposure control; mA and/or kV adjustment per patient size (includes targeted exams where dose is matched to clinical indication); or iterative reconstruction. COMPARISON: CT Head without contrast 03/16/2021 10:41 PM FINDINGS: Brain: Prominent perivascular spaces at the base of the brain bilaterally. There is slight prominence of the peripheral sulci. The daniels and white matter is within normal limits. Cerebral ventricles: Upper normal ventricles. Paranasal sinuses: Right sphenoid sinus mucosal thickening. Mastoid air cells: Visualized mastoid air cells are well aerated. Bones/joints: Unremarkable. No acute fracture. Soft tissues: Unremarkable. IMPRESSION: 1. Minimal atrophic change. 2. Right sphenoid sinus disease which is similar to 03/16/2021. 3. Otherwise negative noncontrast head CT. Electronically signed by: Lewis Hernandez On 03/17/2021 22:21:08 PM
[2021-03-17 22:34] LABS: ABG BASE EXCESS -2.9 (-2.0-2.0); ABG HCO3 22.2 MEQ/L (22.0-26.0); ABG O2 SATURATION 98.3 % (95.0-99.0); ABG PARTIAL PRESSURE CO2 39.5 mmHg (35.0-45.0); ABG PARTIAL PRESSURE O2 131.2 mmHg (75.0-100.0); ABG STANDARD HCO3 22.1 MEQ/L (22.0-26.0); ABG TOTAL CO2 23.4 MEQ/L (23.0-31.0); ABG pH (ARTERIAL) 7.367 UNITS (7.350-7.450)
[2021-03-17] MEDS ORDERED: NALOXONE INJ 0.4MG/1ML VIAL (J2310 PER 1MG) IV STA (22:41)
[2021-03-17 23:18] LABS: INR 1.62; PROTHROMBIN TIME 19.7 SECONDS (12.7-14.5)
[2021-03-17 23:19] LABS: PARTIAL THROMBOPLASTIN TIME 45.8 SECONDS (25.9-37.0)
[2021-03-18] MEDS: DOXYCYCLINE HYCLATE 100 MG in D5W MINI-BAG PLUS 100 ML IV SCH ×2 (02:07→14:17)
[2021-03-18 02:16] LABS: INR 1.6; PROTHROMBIN TIME 19.5 SECONDS (12.7-14.5)
[2021-03-18] MEDS ORDERED: NALOXONE INJ 0.4MG/1ML VIAL (J2310 PER 1MG) IV PRN (02:35)
[2021-03-18 02:58] LABS: ALBUMIN 1.8 GM/DL (3.2-5.2); BILIRUBIN,DIRECT 0.7 MG/DL (0.0-0.2); BILIRUBIN,TOTAL 0.9 MG/DL (0.2-1.0)
[2021-03-18] MEDS ORDERED: ACETYLCYSTEINE 8,200 MG in D5W 1,000 ML IV ONE (03:30)
[2021-03-18] MEDS: NS 1,000 ML IV SCH ×2 (04:01→12:49)
[2021-03-18 06:00] VITALS: BP 141/99
[2021-03-18] MEDS: THIAMINE INJection 500 MG in NS 100 ML IV SCH ×3 (06:01→21:55)
[2021-03-18 06:04] LABS: HEMATOCRIT 28.5 % (36.0-47.0); HEMOGLOBIN 9.5 g/dl (12.0-15.5); MEAN CORPUSCULAR HEMOGLOBIN 28.7 pg (27.0-33.0); MEAN CORPUSCULAR HGB CONC 33.3 g/dl (32.0-36.5); MEAN CORPUSCULAR VOLUME 86.1 fl (80.0-96.0); PLATELET COUNT, AUTOMATED 141 10^3/uL (150-450); RED BLOOD COUNT 3.31 10^6/uL (4.00-5.40); WHITE BLOOD COUNT 1.9 10^3/uL (4.0-10.0)
[2021-03-18 06:15] LABS: INR 1.64; PROTHROMBIN TIME 19.8 SECONDS (12.7-14.5)
[2021-03-18 06:16] LABS: PARTIAL THROMBOPLASTIN TIME 52.5 SECONDS (25.9-37.0)
[2021-03-18 06:36] LABS: CALCIUM LEVEL 7.7 MG/DL (8.8-10.2); CREATININE FOR GFR 1.31 MG/DL (0.55-1.30); GLOMERULAR FILTRATION RATE 42.1 (>39)
[2021-03-18 06:54] LABS: ALBUMIN 1.8 GM/DL (3.2-5.2); BILIRUBIN,DIRECT 0.6 MG/DL (0.0-0.2); BILIRUBIN,TOTAL 0.8 MG/DL (0.2-1.0); TOTAL PROTEIN 4.9 GM/DL (6.4-8.2)
[2021-03-18] MEDS: ADVAIR HFA 230/21MCG INHALER INH SCH ×2 (07:32→19:35)
[2021-03-18] MEDS: TIOTROPIUM INHALER/CAPSULE (SPIRIVA) INH SCH (07:32)
--- NOTE | 2021-03-18 09:49 | IPNPDOC ---
Text Note Date of Service The patient was seen on 03/18/21. Subjective: Pt is a 76 y/o female admitted to [facility] for encephalopathy. Last night the night team gave the patient Narcan for decline in mental status, which caused acute improvement. In the morning, patient was orientated on exam but still lethargic. Patient had difficulty staying awake during conversation. Patient says that her periorbital edema and difficulty opening her eyes has been going on for more than 6 months. Pt has an appointment with an banquet server on call to address this. Patient's son was updated on her condition and confirmed that her periorbital edema and difficulty with eye opening has been present before admission. Review of systems: Pt denies headache, N/V, chest pain, palpitations, SOB, dyspnea, ABD pain, urinary pain, numbness, or tingling. Left sided neck pain. Pt said that her inability to open her eyes has been going on for more than 6 months. Physical exam: General: Pt is a 76 y/o female lying supine in her bed. Pt appears in no distress. Pt is very lethargic, and struggles to stay awake during conversation. HEENT: NC, AT, EOMI, no scleral icterus. Pt has a left sided tender neck pain, with a raised lesion with irregular borders. Pt also has slight carolin-orbital e francis and difficulty with eye opening. Heart: Normal S1 and S2. No murmurs and extra heart sounds. Lungs: Clear and equal breath sounds BL. No wheezing, stridor, or rhonchi. ABD pain: Bowel sounds are present. Pt has tenderness to deep palpation of RUQ- Mild hepatomegaly. Extremities: No pitting edema present BL. +2/4 pulses posterior tibial and pedal pulses. Neuro: No weakness or loss of sensation. GCS 15. Psych: Alert and oriented X4. Assessment: 76 y/o female with PMHx of HepC (treated in 2017), COPD, depression, insomnia, HTN, Hyperlipidemia, GE reflux, osteoporosis, NAFLD, splenomegaly, recurrent UTIs resistant to levaquin, OA causing chronic pain, and peripheral neuropathy. Pt presents with AMS that has a multifactorial etiology. Pt has elevated liver transaminitis and coagulopathy secondary to acetaminophen toxicity, elevated BUN and Creatinine secondary to dehydration, UA shows UTI, and a left-sided neck mass likely cellulitis. Plan: # Encephalopathy possibly 2/2 to accumulation of gabapentin, pregabalin, and fentanyl. - Gabapentin and pregabalin are renally excreted and accumulation due to RODRIGO may have attributed to AMS. - Head CT was negative for any acute changes. - D/C pregabalin, gabapentin, oxycodone, and fentanyl. - Pt had worsened mental status last night and she was given Narcan which caused prompt improvement. - Pt's mental status will continue to be monitored. - Clear liquid diet because of aspiration risk. Pt is on fall precautions. # Liver transaminitis likely 2/2 to Acetaminophen toxicity - Acetaminophen levels were elevated on admission - poison control was called and Acedote was started. Will continue Acedote per poison control recommendatio ns. - Acetaminophen levels are decreased below toxicity threshold. - Pt Liver enzymes are trending upward. This is to be expected as NAPQI, a metabolite of acetaminophen, is causing the damage. Will continue to trend Liver enzymes. - INR, PT, and PTT are elevated indicating loss of liver function. Will continue to monitor coagulation tests. - Pt ammonia level is elevated - Pt currently does not show signs of hepatic encephlopathy. Will continue to monitor ammonia levels and mental status. - Glucose will be monitored for changes. Liver damage may alter gluconeogensis and glycolysis that occurs in the liver. - Liver ultrasound found enlarged liver with cortical echotexture. Unclear whether this damage is acute or from chronic NAFLD. # RODRIGO likely 2/2 to dehydration - Pt's BUN and Cr have decreased from yesterday indicating RODRIGO is resolving. - Decrease in BUN and Cr with IV fluid indicates etiology of RODRIGO most likely pre-renal. - Pt is currently receiving 75cc/hour to treat dehydration. - Will monitor BUN and Cr daily for improvement. # UTI - Patient has positive leukocyte esterase, elevated WBCs, and urine bacteria. - Pt has a history of UTI with E.Coli resistant to Levaquin. - On Doxycycline # Left-sided enlarged neck mass unclear etiology - Left side tympanic membrane is clear and normal making otitis media unlikely. - Mass in likely not an infection given presentations there is no heat, no erythema. - Neck CT found no abscess, soft tissue/ inflammatory changes were present consistent with cellulitis. - Antibiotic for UTI will also cover cellulitis. - ENT was consulted, and Dr. Corbin said the patient can see him in the clinic # Chronic Pain management - Pt's pain medications are pregabalin, gabapentin, and fentanyl were D/C. These drugs were most likely contributing to her altered mental status. # Hypertension - Continue the patient on Carvedilol. # Diabetes mellitus Hold glimepiride Carbohydrate consistent diet Sliding scale insulin, glucose checks, hypoglycemia protocol # COPD Stable, not in exacerbation Continue Advair, Spiriva, albuterol PRN # Hyperlipidemia Continue simvastatin # Overactive bladder Hold oxybutynin as it can cause confusion Hold mirabegron # GERD Continue pantoprazole. # DVT prophylaxis Heparin Code status: Full code. Disposition: Pending clinical improvement of encephlopathy. Stay expected at least 2 more nights. VS,Fishbone, I+O VS, Fishbone, I+O Laboratory Tests 03/17/21 21:06 03/17/21 21:36 03/18/21 05:45 Vital Signs Date Time Temp Pulse Resp B/P (MAP) Pulse Ox O2 Delivery O2 Flow Rate FiO2 03/18/21 06:00 98.8 89 18 141/99 (113) 93 Room Air 03/17/21 04:16 2.0 I&O- Last 24 Hours up to 6 AM 03/18/21 06:00 Intake Total 1250 ml Output Total 900 ml Balance 350 ml GME ATTESTATION GME ATTESTATION My faculty preceptor for this patient encounter was physically present during the encounter and was fully available. All aspects of the patient interview, examination, medical decision making process, and medical care plan development were reviewed and approved by the faculty preceptor. The faculty preceptor is aware and concurs with the plan as stated in the body of this note and will attest to such by his/her cosignature. JESSICA HUGHES OMS-3 Mar 18, 2021 09:49 DARÍO RASHID DO Mar 18, 2021 18:14
[2021-03-18] MEDS: FOLIC ACID 1 MG TAB PO SCH ×2 (10:11→21:53)
[2021-03-18] MEDS: PANTOPRAZOLE 40MG TAB (PROTONIX) PO SCH (10:11)
[2021-03-18] MEDS: FERROUS SULFATE 325MG TAB PO SCH (10:11)
[2021-03-18] MEDS: HEPARIN SOD (PORCINE) 5000UNITS/ML 1ML VIAL/SYRINGE SC SCH ×2 (10:12→21:54)
[2021-03-18] MEDS: CLOPIDOGREL 75 MG TAB PO SCH (10:12)
[2021-03-18] MEDS: CARVedilol 3.125 MG TAB PO SCH ×2 (10:12→21:54)
[2021-03-18 13:01] LABS: HEMATOCRIT 28.5 % (36.0-47.0); HEMOGLOBIN 9.5 g/dl (12.0-15.5); MEAN CORPUSCULAR HEMOGLOBIN 28.4 pg (27.0-33.0); MEAN CORPUSCULAR HGB CONC 33.3 g/dl (32.0-36.5); MEAN CORPUSCULAR VOLUME 85.3 fl (80.0-96.0); PLATELET COUNT, AUTOMATED 146 10^3/uL (150-450); RED BLOOD COUNT 3.34 10^6/uL (4.00-5.40); WHITE BLOOD COUNT 1.9 10^3/uL (4.0-10.0)
[2021-03-18 14:00] VITALS: BP 150/84
[2021-03-18 14:02] LABS: CALCIUM LEVEL 8.2 MG/DL (8.8-10.2); CREATININE FOR GFR 1.19 MG/DL (0.55-1.30); GLOMERULAR FILTRATION RATE 47.1 (>39); POTASSIUM SERUM 3.9 MEQ/L (3.5-5.1)
[2021-03-18 15:59] LABS: ALBUMIN 1.9 GM/DL (3.2-5.2); BILIRUBIN,DIRECT 0.6 MG/DL (0.0-0.2); BILIRUBIN,TOTAL 0.9 MG/DL (0.2-1.0); TOTAL PROTEIN 5.2 GM/DL (6.4-8.2)
[2021-03-18 18:29] LABS: HEMATOCRIT 26.9 % (36.0-47.0); HEMOGLOBIN 9.1 g/dl (12.0-15.5); MEAN CORPUSCULAR HEMOGLOBIN 28.7 pg (27.0-33.0); MEAN CORPUSCULAR HGB CONC 33.8 g/dl (32.0-36.5); MEAN CORPUSCULAR VOLUME 84.9 fl (80.0-96.0); PLATELET COUNT, AUTOMATED 144 10^3/uL (150-450); RED BLOOD COUNT 3.17 10^6/uL (4.00-5.40)
[2021-03-18 18:42] LABS: INR 1.56; PROTHROMBIN TIME 19.1 SECONDS (12.7-14.5)
[2021-03-18 18:44] LABS: CALCIUM LEVEL 8.2 MG/DL (8.8-10.2); CREATININE FOR GFR 1.04 MG/DL (0.55-1.30); POTASSIUM SERUM 3.8 MEQ/L (3.5-5.1)
[2021-03-18 19:29] LABS: ALBUMIN 1.8 GM/DL (3.2-5.2); BILIRUBIN,DIRECT 0.6 MG/DL (0.0-0.2); BILIRUBIN,TOTAL 0.8 MG/DL (0.2-1.0); TOTAL PROTEIN 4.9 GM/DL (6.4-8.2)
[2021-03-18 21:33] LABS: ALBUMIN 1.8 GM/DL (3.2-5.2); BILIRUBIN,DIRECT 0.7 MG/DL (0.0-0.2); BILIRUBIN,TOTAL 0.8 MG/DL (0.2-1.0)
[2021-03-18 21:48] VITALS: BP 150/75
[2021-03-18] MEDS: MONTELUKAST 10 MG TAB PO SCH (21:53)
[2021-03-18] MEDS: SIMVASTATIN 20 MG TAB PO SCH (21:54)
[2021-03-19] MEDS ORDERED: ACETYLCYSTEINE 8,200 MG in D5W 1,000 ML IV ONE (00:30)
[2021-03-19] MEDS: DOXYCYCLINE HYCLATE 100 MG in D5W MINI-BAG PLUS 100 ML IV SCH (04:04)
[2021-03-19] MEDS: NS 1,000 ML IV SCH ×2 (04:04→18:26)
[2021-03-19 06:00] VITALS: BP 136/63
[2021-03-19] MEDS ORDERED: DEXTROSE 50% 50 ML SYRINGE IV PRN (06:35)
[2021-03-19] MEDS ORDERED: GLUCOSE 4GM CHEW TABLET PO PRN (06:35)
[2021-03-19] MEDS ORDERED: GLUCAGON INJ 1MG VIAL SC PRN (06:35)
[2021-03-19 06:43] LABS: HEMATOCRIT 25.1 % (36.0-47.0); HEMOGLOBIN 8.5 g/dl (12.0-15.5); MEAN CORPUSCULAR HEMOGLOBIN 28.8 pg (27.0-33.0); MEAN CORPUSCULAR HGB CONC 33.9 g/dl (32.0-36.5); MEAN CORPUSCULAR VOLUME 85.1 fl (80.0-96.0); PLATELET COUNT, AUTOMATED 123 10^3/uL (150-450); RED BLOOD COUNT 2.95 10^6/uL (4.00-5.40); WHITE BLOOD COUNT 1.7 10^3/uL (4.0-10.0)
[2021-03-19 06:59] LABS: ALBUMIN 1.7 GM/DL (3.2-5.2); ALT/SGPT 1560 U/L (12-78); BILIRUBIN,DIRECT 0.6 MG/DL (0.0-0.2); BILIRUBIN,TOTAL 0.9 MG/DL (0.2-1.0); BLOOD UREA NITROGEN 12 MG/DL (7-18); CALCIUM LEVEL 8.4 MG/DL (8.8-10.2); CARBON DIOXIDE LEVEL 23 MEQ/L (21-32); CHLORIDE LEVEL 113 MEQ/L (98-107); CREATININE FOR GFR 0.87 MG/DL (0.55-1.30); GLOMERULAR FILTRATION RATE > 60.0 (>39); GLUCOSE, FASTING 157 MG/DL (70-100); POTASSIUM SERUM 3.9 MEQ/L (3.5-5.1); SODIUM LEVEL 141 MEQ/L (136-145); TOTAL PROTEIN 5.3 GM/DL (6.4-8.2)
[2021-03-19] MEDS: THIAMINE INJection 500 MG in NS 100 ML IV SCH ×3 (07:11→22:11)
[2021-03-19 07:12] LABS: CYTOMEGALOVIRUS IgG ANTIBODY >10.00 U/mL (0.00-0.59); CYTOMEGALOVIRUS IgM ANTIBODY <30.0 AU/mL (0.0-29.9)
[2021-03-19] MEDS: HumaLOG INSULIN (NovoLOG) PER UNIT SC SCH ×4 (07:12→21:00)
[2021-03-19] MEDS: TIOTROPIUM INHALER/CAPSULE (SPIRIVA) INH SCH (07:21)
[2021-03-19] MEDS: ADVAIR HFA 230/21MCG INHALER INH SCH ×2 (07:21→19:39)
--- NOTE | 2021-03-19 07:59 | IPNPDOC ---
Text Note Date of Service The patient was seen on 03/19/21. Subjective: Pt is a 71 y/o female who was admitted to the hospital for encephalopathy. On exam Pt was conversational and non-lethargic. Pt says that she feels more awake than yesterday. Pt's neck pain on the left side has improved since admission but is still present. Pt has chronic migraines and neuropathy 2/2 to diabetes that is causing her discomfort. Review of system: Pt has a headache 2/2 to migraines and some slight nausea. Pt denies palpitations, SOB, dyspnea, ABD pain, or dysuria. Patient has no numbness, tingling or pain in her legs or arms beyond her baseline from T2DM. Patient denies fever or chills. Physical exam: General: Pt is a 71 y/o female seen supine in her bed. Pt is in no acute distress. Pt is non-lethargic and able to maintain normal conversation. HEENT: NC, AT, EOMI, no scleral icterus, mucous membranes are dry on exam. Heart: S1 and S2 are present. No extra heart sounds or murmurs. Lungs: BL clear and equal breath sounds. No wheezing, cough, stridor, or crackle s. ABD: Tenderness on deep palpation of the liver, slight hepatomegaly. ABD sounds are present. Extremities: No edema is present in the legs. +2/4 BL posterior tibial and dorsalis pedal pulses are present. Neuro: No weakness or loss of sensation in the legs. Psych: Alert and orientedX4. Pt is not agitated. Skin: No bruise or abrasion visible on exam. Assessment: 76 y/o female with PMHx of HepC (treated in 2017), COPD, depression, Insomnia, HTN, Hyperlipidemia, GE reflux, osteoporosis, NAFLD, Splenomegaly, Recurrent UTIs resistant to levaquin, OA causing chronic pain, and peripheral neuropathy. On exam today patient has no AMS. Pt has elevated liver enzymes and coagulopathy 2/2 to acetaminophen toxicity, Urine cultures show the patient has a UTI from klebsiella, a left-sided neck mass likely cellulitis, anemia likely 2/2 to dilution. Plan: # Encephalopathy possibly 2/2 to accumulation of gabapentin, pregabalin, and fentanyl, improved. - Gabapentin and pregabalin are renally excreted and accumulation due to RODRIGO may have attributed to AMS. - Head CT was negative for any acute changes. - D/C pregabalin, gabapentin, oxycodone, and fentanyl. - Today Pt has a GCS of 15 and Alert and oriented*4. Mental status will continue to be monitored. - Pt is on fall precautions. Pt will undergo PT/OT evaluation today. # Liver transaminitis likely 2/2 to Acetaminophen toxicity - Acetaminophen levels were elevated on admission - maximum ALT was 1937, poison control was called and Acedote was started. - Continued to be on acedote and continue to monitor liver profile, INR and acetaminophen level. Goal endpoint for Acedote administration is ALT <50% maximum( at 1000), INR<2.0, and Acetaminophen <10. - Pt Liver enzymes and ammonia level are trending downtrending. - INR, PT, and PTT are elevated.Will continue to monitor coagulation tests. - Will continue to monitor ammonia levels and mental status. - Glucose will be monitored for changes - Liver ultrasound found enlarged liver with cortical echotexture. Unclear whether this damage is acute or from chronic NAFLD. # RODRIGO likely 2/2 to dehydration, resolved - Pt's BUN and Cr are within normal limits indicating RODRIGO has resolved. - Will monitor BUN and Cr daily. # Pancytopenia likely 2/2 to dilution from IV fluids - Iron studies are pending (Iron, TIBC, Transferrin, Folate, Vitamin B12, and Ferritin). - Will check for occult bleeding with digital rectal exam. - CBC with differential and Peripheral smear are pending. - On discharge we will refer the patient to follow up with Hematology and Oncology. # UTI - Patient has positive Leukocyte Esterase, elevated WBCs, and urine bacteria. - Pt has a history of UTI with E.Coli resistant to Levaquin. - UC show that the Pt's UTI is caused by Klebsiella. Pt will be started on based on sensitivities and allergies. Doxycycline will be D/C. # Left-sided enlarged neck mass unclear etiology - Left side tympanic membrane is clear making otitis media unlikely. - Mass in likely not an infection given presentation - no heat, no erythema. - Neck CT found no abscess, soft tissue/ inflammatory changes were present consistent with cellulitis. - Antibiotic for UTI will also cover cellulitis. - ENT was consulted, and Dr. Corbin said the patient can see him in the clinic. # Chronic Pain management - Pt's pain medications are pregabalin and fentanyl were D/C. These drugs may contribute to her altered mental status. - Pt will be started on 100mg gabapentin for pain relief as her mental status has greatly improved, currently alert and orientedX4. # Hypertension - Continue the patient on Carvedilol. - Blood pressure stable # Diabetes mellitus type 2 Hold glimepiride Carbohydrate consistent diet with aspiration precaution Sliding scale insulin, glucose checks and hypoglycemia protocol # COPD Stable, not in exacerbation Continue Advair, Spiriva, albuterol PRN # Hyperlipidemia Continue simvastatin # Overactive bladder Hold oxybutynin as it can cause confusion Hold mirabegron # GERD Continue pantoprazole. # DVT prophylaxis Heparin Code status: Full code. Disposition: Pending clinical improvement of encephalopathy. On NAC for acetaminophen overdose. Stay expected at least 1 more night. VS,Fishbone, I+O VS, Fishbone, I+O Laboratory Tests 03/18/21 12:28 03/18/21 18:10 03/19/21 06:07 Vital Signs Date Time Temp Pulse Resp B/P (MAP) Pulse Ox O2 Delivery O2 Flow Rate FiO2 03/19/21 06:00 97.8 83 18 136/63 (87) 94 Room Air 03/17/21 04:16 2.0 I&O- Last 24 Hours up to 6 AM 03/19/21 06:00 Intake Total 100 ml Output Total 1625 ml Balance -1525 ml GME ATTESTATION GME ATTESTATION My faculty preceptor for this patient encounter was physically present during the encounter and was fully available. All aspects of the patient interview, examination, medical decision making process, and medical care plan development were reviewed and approved by the faculty preceptor. The faculty preceptor is aware and concurs with the plan as stated in the body of this note and will attest to such by his/her cosignature. GME ATTESTATION GME ATTESTATION My faculty preceptor for this patient encounter was physically present during the encounter and was fully available. All aspects of the patient interview, examination, medical decision making process, and medical care plan development were reviewed and approved by the faculty preceptor. The faculty preceptor is aware and concurs with the plan as stated in the body of this note and will attest to such by his/her cosignature. JESSICA HUGHES OMS-3 Mar 19, 2021 07:59 DARÍO RASHID DO Mar 19, 2021 17:21
[2021-03-19] MEDS: FERROUS SULFATE 325MG TAB PO SCH (08:35)
[2021-03-19] MEDS: FOLIC ACID 1 MG TAB PO SCH ×2 (08:36→22:08)
[2021-03-19] MEDS: CARVedilol 3.125 MG TAB PO SCH ×2 (08:36→22:09)
[2021-03-19] MEDS: HEPARIN SOD (PORCINE) 5000UNITS/ML 1ML VIAL/SYRINGE SC SCH ×2 (08:36→22:09)
[2021-03-19] MEDS: PANTOPRAZOLE 40MG TAB (PROTONIX) PO SCH (08:36)
[2021-03-19] MEDS: CLOPIDOGREL 75 MG TAB PO SCH (08:36)
[2021-03-19] MEDS ORDERED: LevoFLOXacin 500 MG TABLET PO SCH (11:50)
[2021-03-19 11:53] LABS: EOSINOPHILS 6 % (0-3); LYMPHOCYTES 70 % (16-44); MONOCYTES 5 % (0-5); NEUTROPHILS 19 % (28-66)
[2021-03-19 11:54] LABS: PLATELET ESTIMATE NORMAL (NORMAL)
[2021-03-19] MEDS: GABAPENTIN 100 MG CAP PO SCH ×3 (13:46→22:15)
[2021-03-19] MEDS: LevoFLOXacin 500 MG TABLET PO SCH (13:56)
[2021-03-19 14:00] VITALS: BP 131/77
[2021-03-19 15:53] LABS: HEMATOCRIT 25.9 % (36.0-47.0); HEMOGLOBIN 8.8 g/dl (12.0-15.5); MEAN CORPUSCULAR HEMOGLOBIN 28.9 pg (27.0-33.0); MEAN CORPUSCULAR VOLUME 85.2 fl (80.0-96.0); PLATELET COUNT, AUTOMATED 133 10^3/uL (150-450); RED BLOOD COUNT 3.04 10^6/uL (4.00-5.40); WHITE BLOOD COUNT 2.1 10^3/uL (4.0-10.0)
[2021-03-19 16:10] LABS: INR 1.33; PROTHROMBIN TIME 16.9 SECONDS (12.7-14.5)
[2021-03-19 16:11] LABS: PARTIAL THROMBOPLASTIN TIME 30.9 SECONDS (25.9-37.0)
[2021-03-19 16:32] LABS: ACETAMINOPHEN LEVEL 4.7 UG/ML (10.0-30.0); ALBUMIN 1.9 GM/DL (3.2-5.2); ALT/SGPT 1252 U/L (12-78); BILIRUBIN,TOTAL 1.1 MG/DL (0.2-1.0); BLOOD UREA NITROGEN 11 MG/DL (7-18); CALCIUM LEVEL 8.1 MG/DL (8.8-10.2); CARBON DIOXIDE LEVEL 22 MEQ/L (21-32); CHLORIDE LEVEL 113 MEQ/L (98-107); CREATININE FOR GFR 0.86 MG/DL (0.55-1.30); FERRITIN 1365 NG/ML (8-252); FOLATE > 24.0 NG/ML; GLOMERULAR FILTRATION RATE > 60.0 (>39); GLUCOSE, FASTING 152 MG/DL (70-100); IRON (FE) 101 UG/DL (50-170); PERCENT SATURATION 89.4 % (13.2-45.0); POTASSIUM SERUM 3.9 MEQ/L (3.5-5.1); SODIUM LEVEL 143 MEQ/L (136-145); TOTAL IRON BINDING CAPACITY 113 UG/DL (250-450); TOTAL PROTEIN 5.2 GM/DL (6.4-8.2); VITAMIN B12 LEVEL > 2000 PG/ML
[2021-03-19 22:00] VITALS: BP 143/79
[2021-03-19] MEDS: MONTELUKAST 10 MG TAB PO SCH (22:08)
[2021-03-19] MEDS: SIMVASTATIN 20 MG TAB PO SCH (22:08)
[2021-03-20] MEDS: NS 1,000 ML IV SCH (04:05)
[2021-03-20] MEDS: LevoFLOXacin 500 MG TABLET PO SCH (05:50)
[2021-03-20] MEDS: THIAMINE INJection 500 MG in NS 100 ML IV SCH (05:50)
[2021-03-20 06:00] VITALS: BP 159/79
[2021-03-20] MEDS: ADVAIR HFA 230/21MCG INHALER INH SCH ×2 (07:22→19:41)
[2021-03-20] MEDS: TIOTROPIUM INHALER/CAPSULE (SPIRIVA) INH SCH (07:23)
[2021-03-20 08:14] LABS: HEMATOCRIT 24.6 % (36.0-47.0); HEMOGLOBIN 8.3 g/dl (12.0-15.5); MEAN CORPUSCULAR HEMOGLOBIN 28.5 pg (27.0-33.0); MEAN CORPUSCULAR HGB CONC 33.7 g/dl (32.0-36.5); MEAN CORPUSCULAR VOLUME 84.5 fl (80.0-96.0); PLATELET COUNT, AUTOMATED 128 10^3/uL (150-450); RED BLOOD COUNT 2.91 10^6/uL (4.00-5.40); WHITE BLOOD COUNT 2.2 10^3/uL (4.0-10.0)
[2021-03-20 08:29] LABS: ACETAMINOPHEN LEVEL 2.2 UG/ML (10.0-30.0); ALT/SGPT 972 U/L (12-78); BILIRUBIN,DIRECT 0.6 MG/DL (0.0-0.2); BILIRUBIN,TOTAL 0.9 MG/DL (0.2-1.0); BLOOD UREA NITROGEN 7 MG/DL (7-18); CALCIUM LEVEL 8.3 MG/DL (8.8-10.2); CARBON DIOXIDE LEVEL 26 MEQ/L (21-32); CHLORIDE LEVEL 115 MEQ/L (98-107); CREATININE FOR GFR 0.76 MG/DL (0.55-1.30); GLOMERULAR FILTRATION RATE > 60.0 (>39); GLUCOSE, FASTING 129 MG/DL (70-100); POTASSIUM SERUM 3.7 MEQ/L (3.5-5.1); SODIUM LEVEL 145 MEQ/L (136-145); TOTAL PROTEIN 5.3 GM/DL (6.4-8.2)
[2021-03-20] MEDS: FOLIC ACID 1 MG TAB PO SCH ×2 (09:35→21:56)
[2021-03-20] MEDS: CLOPIDOGREL 75 MG TAB PO SCH (09:35)
[2021-03-20] MEDS: GABAPENTIN 100 MG CAP PO SCH ×3 (09:36→21:56)
[2021-03-20] MEDS: PANTOPRAZOLE 40MG TAB (PROTONIX) PO SCH (09:36)
[2021-03-20] MEDS: FERROUS SULFATE 325MG TAB PO SCH (09:36)
[2021-03-20] MEDS: CARVedilol 3.125 MG TAB PO SCH ×2 (09:36→21:56)
[2021-03-20] MEDS: HEPARIN SOD (PORCINE) 5000UNITS/ML 1ML VIAL/SYRINGE SC SCH ×2 (09:37→21:56)
[2021-03-20] MEDS: HumaLOG INSULIN (NovoLOG) PER UNIT SC SCH ×4 (09:47→21:00)
[2021-03-20 10:53] LABS: EOS # 0.1 10^3/uL (0.0-0.5); EOS % 3.4 % (0.0-3.0); LYMPH # 0.7 10^3/uL (1.5-5.0); LYMPH % 33.3 % (24.0-44.0); MONO # 0.4 10^3/uL (0.0-0.8); MONO % 19.1 % (2.0-8.0); NEUTROPHILS % 40.7 % (36.0-66.0)
[2021-03-20 11:33] LABS: NEUTROPHILS # 0.8 10^3/uL (1.5-8.5)
[2021-03-20] MEDS ORDERED: ONDANSETRON 4 MG ORAL DISINTEGRATING TAB PO ONE ×2 (11:45→23:20)
--- NOTE | 2021-03-20 12:12 | IPNPDOC ---
Text Note Date of Service The patient was seen on 03/20/21. Subjective: Pt is a 76 y/o female who was admitted to the hospital for altered mental status. On exam pt was talkative and non-lethargic. Patient says she is feeling good and slept well last night. Patient still complains of neck pain at rest, chronic migraines, and leg pain from existing peripheral neuropathy. Review of systems: Pt says that she has a slight headache and her baseline pain in her legs. Pt denies N/V, chest pain, SOB, dyspnea, ABD pain, or urinary pain. Pt says tenderness is still present on her left neck. General: Pt was Supine when seen. Pt was in no acute distress. HEENT: NC, AT, EOMI, no scleral icterus, moist membranes. Pt has visible neck asymmetry with left-sided swelling with irregular border. No erythema, tenderness to palpation. Neck: No enlargement of thyroid or lymph nodes. Heart: S1 and S2 present. No extra heart sounds or murmurs Lungs: BL clear and equal breath sounds. No wheezing, stridor, or crackles. ABD: Bowel sounds present. No tenderness on superficial or deep palpation. Extremities: No edema seen on exam. +2/4 BL posterior tibial and pedal pulses. Neuro: No weakness or loss of sensation. Psych: Alert and oriented*4. Peripheral Smear: "Normocytic normochromic anemia with mild poikilocytosis and anisocytosis. Nucleated red cells are not seen. Leukocytopenia associated lymphocytosis and neutropenia. Mild thrombocytopenia. No blast forms are identified." Assessment: 76 y/o female with PMHx of HepC (treated in 2017), COPD, depression, Insomnia, HTN, Hyperlipidemia, GE reflux, osteoporosis, NAFLD, Splenomegaly, Recurrent UTIs resistant to levaquin, OA causing chronic pain, and peripheral neuropathy. On exam today patient has no AMS. Pt has elevated liver enzymes and coagulopathy 2/2 to acetaminophen toxicity, Urine cultures show the patient has a UTI from klebsiella, a left-sided neck mass likely cellulitis, pancytopenia with low absolute neutrophil counts (<400). Plan: # Pancytopenia unknown etiology - Anemia is likely 2/2 to Anemia of chronic disease. - Patient's CBC with differential shows absolute neutrophil count <400. - Peripheral smear results above - confirm pancytopenia. - CBC with differential and reticulocyte count is pending. - On discharge we will refer the patient to follow up with Hematology and Oncology. # Encephalopathy possibly 2/2 to accumulation of gabapentin, pregabalin, and fentanyl, improved. - Gabapentin and pregabalin are renally excreted and accumulation due to RODRIGO may have attributed to AMS. - Head CT was negative for any acute changes. - D/C pregabalin, gabapentin, oxycodone, and fentanyl. - Today Pt has a GCS of 15 and Alert and oriented*4. Mental status will continue to be monitored. - Pt is on fall precautions. # Liver transaminitis likely 2/2 to Acetaminophen toxicity - Acetaminophen levels were elevated on admission - maximum ALT was 1937, poison control was called and Acedote was started. - Acedote was D/C based recommendations from poison control. - Pt Liver enzymes and ammonia level are trending downtrending. - INR, PT, and PTT are elevated indicating loss of liver function. Will continue to monitor coagulation tests. - Pt currently does not show signs of hepatic encephalopathy. Will continue to monitor ammonia levels and mental status. - Glucose will be monitored for changes. Liver damage may alter gluconeogensis and glycolysis. - Liver ultrasound found enlarged liver with cortical echotexture. Unclear wheth er this damage is acute or from chronic NAFLD. # UTI - Patient has positive Leukocyte Esterase, elevated WBCs, and urine bacteria. - Pt has a history of UTI with E.Coli resistant to Levaquin. - UC show that the Pt's UTI is caused by Klebsiella. Day #2 Levaquin based on sensitivities. # Left-sided enlarged neck mass unclear etiology - Left side Tympanic membrane is clear making otitis media unlikely. - Mass in likely not an infection given presentation - no heat, no erythema. - Neck CT found no abscess, soft tissue/ inflammatory changes were present consistent with cellulitis. - Antibiotic for UTI will also cover cellulitis. - ENT was consulted, and Dr. Corbin said the patient can see him in the clinic. # Chronic Pain management - Pt's pain medications are pregabalin and fentanyl were D/C. These drugs were most likely contributing to her altered mental status. - Pt will be started on 100mg gabapentin for pain relief from chronic migraines and diabetic neuropathy as her mental status has greatly improved, currently alert and orientedX4. # Hypertension - Continue the patient on Carvedilol. - Blood pressure stable # Diabetes mellitus type 2 Hold glimepiride Carbohydrate consistent diet with aspiration precaution Sliding scale insulin # COPD Stable, not in exacerbation Continue Advair, Spiriva, albuterol PRN # Hyperlipidemia Continue simvastatin # Overactive bladder Hold oxybutynin as it can cause confusion Hold mirabegron # GERD Continue pantoprazole. # DVT prophylaxis Heparin Code status: Full code. Disposition: Clinical evaluation of Neutropenia. Stay expected at least 1 more night. VS,Fishbone, I+O VS, Fishbone, I+O Laboratory Tests 03/19/21 15:31 03/20/21 07:17 Vital Signs Date Time Temp Pulse Resp B/P (MAP) Pulse Ox O2 Delivery O2 Flow Rate FiO2 03/20/21 09:36 74 142/76 03/20/21 06:00 98.4 17 98 Room Air 03/17/21 04:16 2.0 I&O- Last 24 Hours up to 6 AM 03/20/21 06:00 Intake Total 2910 ml Output Total 6575 ml Balance -3665 ml GME ATTESTATION GME ATTESTATION My faculty preceptor for this patient encounter was physically present during the encounter and was fully available. All aspects of the patient interview, examination, medical decision making process, and medical care plan development were reviewed and approved by the faculty preceptor. The faculty preceptor is aware and concurs with the plan as stated in the body of this note and will attest to such by his/her cosignature. JESSICA HUGHES OMS-3 Mar 20, 2021 12:12
[2021-03-20 14:00] VITALS: BP 187/89
[2021-03-20 15:58] VITALS: BP 150/60
[2021-03-20] MEDS: SIMVASTATIN 20 MG TAB PO SCH (21:56)
[2021-03-20] MEDS: RAMELTEON 8 MG TAB (ROZEREM) PO PRN (21:56)
[2021-03-20] MEDS: MONTELUKAST 10 MG TAB PO SCH (21:56)
[2021-03-20 22:00] VITALS: BP 153/73
[2021-03-20] MEDS ORDERED: PILL CUTTER 1 EACH XX PRN (23:30)
[2021-03-21 00:03] VITALS: BP 154/75
[2021-03-21] MEDS: MECLIZINE 12.5 MG TAB PO PRN ×2 (00:03→08:50)
[2021-03-21 06:00] VITALS: BP 168/81
[2021-03-21] MEDS: LevoFLOXacin 750 MG TABLET PO SCH (06:13)
[2021-03-21 06:15] LABS: BASO % 0.3 % (0.0-1.0); EOS % 0.5 % (0.0-3.0); HEMATOCRIT 27.6 % (36.0-47.0); HEMOGLOBIN 9.3 g/dl (12.0-15.5); LYMPH # 0.9 10^3/uL (1.5-5.0); LYMPH % 23.5 % (24.0-44.0); MEAN CORPUSCULAR HEMOGLOBIN 28.6 pg (27.0-33.0); MEAN CORPUSCULAR HGB CONC 33.7 g/dl (32.0-36.5); MEAN CORPUSCULAR VOLUME 84.9 fl (80.0-96.0); MONO # 0.4 10^3/uL (0.0-0.8); MONO % 10.5 % (2.0-8.0); NEUTROPHILS # 2.3 10^3/uL (1.5-8.5); NEUTROPHILS % 61.2 % (36.0-66.0); PLATELET COUNT, AUTOMATED 141 10^3/uL (150-450); RED BLOOD COUNT 3.25 10^6/uL (4.00-5.40); WHITE BLOOD COUNT 3.7 10^3/uL (4.0-10.0)
[2021-03-21 06:41] LABS: ACETAMINOPHEN LEVEL < 2.0 UG/ML (10.0-30.0); ALBUMIN 2.4 GM/DL (3.2-5.2); ALT/SGPT 714 U/L (12-78); BILIRUBIN,DIRECT 0.6 MG/DL (0.0-0.2); BLOOD UREA NITROGEN 5 MG/DL (7-18); CALCIUM LEVEL 8.5 MG/DL (8.8-10.2); CARBON DIOXIDE LEVEL 29 MEQ/L (21-32); CHLORIDE LEVEL 106 MEQ/L (98-107); CREATININE FOR GFR 0.72 MG/DL (0.55-1.30); GLOMERULAR FILTRATION RATE > 60.0 (>39); GLUCOSE, FASTING 151 MG/DL (70-100); POTASSIUM SERUM 3.7 MEQ/L (3.5-5.1); SODIUM LEVEL 140 MEQ/L (136-145)
[2021-03-21] MEDS: TIOTROPIUM INHALER/CAPSULE (SPIRIVA) INH SCH (07:24)
[2021-03-21] MEDS: ADVAIR HFA 230/21MCG INHALER INH SCH ×2 (07:24→19:38)
[2021-03-21] MEDS: HumaLOG INSULIN (NovoLOG) PER UNIT SC SCH ×5 (07:30→20:55)
[2021-03-21] MEDS: HEPARIN SOD (PORCINE) 5000UNITS/ML 1ML VIAL/SYRINGE SC SCH ×2 (10:18→21:00)
[2021-03-21] MEDS: CARVedilol 3.125 MG TAB PO SCH ×2 (10:19→21:02)
[2021-03-21] MEDS: FOLIC ACID 1 MG TAB PO SCH ×2 (10:19→21:00)
[2021-03-21] MEDS: CLOPIDOGREL 75 MG TAB PO SCH (10:19)
[2021-03-21] MEDS: GABAPENTIN 100 MG CAP PO SCH ×3 (10:20→21:00)
[2021-03-21] MEDS: FERROUS SULFATE 325MG TAB PO SCH (10:20)
[2021-03-21] MEDS: PANTOPRAZOLE 40MG TAB (PROTONIX) PO SCH (10:20)
--- NOTE | 2021-03-21 10:47 | DS.PDOC ---
Discharge Summary General Date of Admission Mar 16, 2021 at 22:30 Discharge Summary ADMITTING/Discharge DIAGNOSES: 1. Toxic encephalopathy 2/2 to Gabapentin, Pregabalin, and fentanyl 2. Acute liver injury 2/2 Acetaminophen overdose 3. RODRIGO 2/2 dehydration 4. UTI 5. Left sided Cellulitis 6. T2DM 7. COPD 8. Hyperlipidemia 9. Hepatitis C secondary to tattoo, treated with Epclusa in April 2017 10. Depression 11. Insomnia 12. Hypertension 13. Reflux 14. Osteoporosis 15. Fatty liver 16. Splenomegaly 17. 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 Chronic pain from osteoarthritis in the lumbar spine, hips, feet 19. Peripheral neuropathy 2/2 to T2DM COMPLICATIONS/CHIEF COMPLAINT: Acetaminophen induced liver toxicity, RODRIGO, and Toxic Encephalopathy, UTI, and left sided cellulitis. HISTORY OF PRESENT ILLNESS: Pt is a 76 y/o female who presented to the ER with Altered mental status. HOSPITAL COURSE: Pt presented to the [facility] ED via ambulance, called by her son, for altered mental status of less than 24hrs duration. Pt was found to have RODRIGO 2/2 to dehydration causing buildup of Pregabalin and gabapentin that lead to her altered mental status, IV fluids were given to treat RODRIGO. Pt was told to take Acetaminophen by urgent care for pain 2/2 to left sided cellulitis. Acetaminophen caused acute liver injury and poison control recommended Acetadote be started. CT on the neck found that the patients left sided neck infection was cellulitis and not a superficial abscess. Pt was found to have UTI on UA and was started on Doxycycline for UTI and left side cellulitis. Urine cultures came back positive for Enterococci, Levaquin PO was given based on sensitivities. BUN and Creatinine were down trending during hospital stay indicating resolution of RODRIGO. Pts medication induced toxic encephalopathy resolved with RODRIGO. Liver enzymes initially up trended, which is consistent with damage from NAPQI. Liver enzymes trended downward on day 2 and day 3, Acetadote was D/C based on recomm endation from poison control. Pt will follow up with ENT for treatment of neck cellulitis. DISCHARGE MEDICATIONS: Please see below. ALLERGIES: Please see below. Review of systems: Pt says that she has a slight headache and her baseline pain in her legs. Pt denies chest pain, SOB, dyspnea, ABD pain, or urinary pain. Pt says tenderness is still present on her left neck. Pt says that she has an epis ode of vertigo yesterday when she sat up and was working with PT. Patient had no vertigo when she sat up during exam today. PHYSICAL EXAMINATION ON DISCHARGE: General: Pt was supine when seen. Pt was in no acute distress. Pt complained of no N/V, and vertigo on exam today when she sat up in her bed. HEENT: NC, AT, EOMI, no scleral icterus, moist membranes. Neck: No enlargement of thyroid or lymph nodes. Heart: S1 and S2 present. No extra heart sounds or murmurs. Lungs: BL clear and equal breath sounds. No wheezing, stridor, or crackles. ABD: Bowel sounds present. No tenderness on superficial or deep palpation. Extremities: No edema seen on exam. +2/4 BL posterior tibial and pedal pulses. Neuro: No weakness or loss of sensation. Psych: Alert and oriented*4. LABORATORY DATA: Please see below. New IMAGING: none PROGNOSIS: Fair ACTIVITY: As tolerated. DIET: Carbohydrate restriction consistent with T2DM DISCHARGE PLAN: 1. Patient should continue Levaquin for ___ days for treatment of UTI and skin infection. 2. Pt pain medication treatment: 3. Pt can restart the rest of her home medications. DISPOSITION: Fair. DISCHARGE INSTRUCTIONS: 1. Follow up with PCP in 7 days for recheck of AST, ALT, and coagulation study. Also determine which pain medications to continue. 2. Follow up appointment with ENT for evaluation of left sided cellulitis. ITEMS TO FOLLOWUP ON OUTPATIENT: 1. Follow up with PCP in 7 days for recheck of AST, ALT, and coagulation study. Also determine which pain medications to continue. 2. Follow up appointment with ENT for evaluation of left sided cellulitis. DISCHARGE CONDITION: Stable. TIME SPENT ON DISCHARGE: 34 minutes. Vital Signs/I&Os Vital Signs Date Time Temp Pulse Resp B/P (MAP) Pulse Ox O2 Delivery O2 Flow Rate FiO2 03/21/21 10:19 85 121/79 03/21/21 06:00 98.4 16 99 Room Air 03/17/21 04:16 2.0 I&O- Last 24 Hours up to 6 AM 03/21/21 06:00 Intake Total 780 ml Output Total 3800 ml Balance -3020 ml Laboratory Data Labs 24H Laboratory Tests 2 03/20/21 18:59: Bedside Glucose (Misc Panel) 124H 03/20/21 20:49: Bedside Glucose (Misc Panel) 110 03/21/21 00:07: Bedside Glucose (Misc Panel) 135H 03/21/21 05:50: Immature Granulocyte % (Auto) 4.0H, Neutrophils (%) (Auto) 61.2, Lymphocytes (%) (Auto) 23.5L, Monocytes (%) (Auto) 10.5H, Eosinophils (%) (Auto) 0.5, Basophils (%) (Auto) 0.3, Neutrophils # (Auto) 2.3, Lymphocytes # (Auto) 0.9L, Monocytes # (Auto) 0.4, Eosinophils # (Auto) 0.0, Basophils # (Auto) 0.0, Reticulocyte # (auto) 84.2H, Nucleated Red Blood Cells % (auto) 1.1H, Percent Reticulocyte Count 2.6H, Reticulocyte Hemoglobin Equivalent 37.2H, Anion Gap 5L, Glomerular Filtration Rate > 60.0, Calcium Level 8.5L, Total Bilirubin 1.0, Direct Bilirubin 0.6H, Aspartate Amino Transf (AST/SGOT) 117H, Alanine Aminotransferase (ALT/SGPT) 714H, Alkaline Phosphatase 144H, Ammonia 21, Total Protein 6.0L, Alb umin 2.4L, Albumin/Globulin Ratio 0.7L, Acetaminophen Level < 2.0L CBC/BMP Laboratory Tests 03/21/21 05:50 FSBS Laboratory Tests Test 03/20/21 18:59 03/20/21 20:49 03/21/21 00:07 Range/Units Bedside Glucose (Misc Panel) 124 110 135 83-110 MG/DL Microbiology Microbiology 03/17/21 Blood Culture - Preliminary, Resulted No Growth after 72 hours. All specime... 03/16/21 Urine Culture - Final, Complete Klebsiella Pneumoniae Stenotrophomonas Maltophilia Staphylococcus Aureus Enterococcus Faecalis 03/16/21 Blood Culture - Preliminary, Resulted Discharge Medications Scheduled Carvedilol (Carvedilol) 3.125 Mg Tablet, 3.125 MG PO BID, (Reported) Cephalexin (Cephalexin) 500 Mg Capsule, 500 MG PO QID, (Reported) STARTED ON 03/14/21 Clopidogrel Bisulfate (Clopidogrel) 75 Mg Tablet, 75 MG PO DAILY, (Reported) Fentanyl (Fentanyl) 12 Mcg Patch.td72, 12 MCG TD Q3RD, (Reported) Ferrous Sulfate (Ferrous Sulfate) 325 Mg Tab, 325 MG PO DAILY, (Reported) Folic Acid (Folic Acid) 1 Mg Tab, 1 MG PO BID, (Reported) Gabapentin (Gabapentin) 600 Mg Tablet, 600 MG PO TID, (Reported) Glimepiride (Glimepiride) 2 Mg Tablet, 2 MG PO DAILY, (Reported) Lisinopril (Lisinopril) 2.5 Mg Tablet, 2.5 MG PO DAILY, (Reported) Methenamine Hippurate (Methenamine Hippurate) 1 Gm Tab, 1 GRAM PO BID, (Reported) Mirabegron (Myrbetriq) 50 Mg Tab.er.24h, 50 MG PO DAILY, (Reported) Mirtazapine (Remeron) 30 Mg Tablet, 30 MG PO QHS, (Reported) Montelukast Sodium (Montelukast Sodium) 10 Mg Tablet, 10 MG PO QHS, (Reported) Oxybutynin Chloride (Oxybutynin Chloride ER) 10 Mg Tab.er.24, 10 MG PO BID, (Reported) Pantoprazole Sodium (Pantoprazole Sodium) 40 Mg Tablet.dr, 40 MG PO DAILY, (Reported) Pregabalin (Lyrica) 150 Mg Capsule, 150 MG PO BID, (Reported) Salmeterol/Fluticasone (Advair 500-50 Diskus) 1 Each Blst.w.dev, 1 PUFF INH BID, (Reported) Simvastatin (Simvastatin) 20 Mg Tab, 20 MG PO QHS, (Reported) Tiotropium Cash (Spiriva) 18 Mcg Cap.w.dev, 1 PUFF INH DAILY, (Reported) Trazodone HCl (Trazodone HCl) 100 Mg Tablet, 200 MG PO QHS, (Reported) Scheduled PRN Albuterol Sulfate (Proair Hfa) 8.5 Gm Hfa.aer.ad, 2 PUFF INH Q4H PRN for SHORTNESS OF BREATH, (Reported) Docusate Sodium (Docusate Sodium) 100 Mg Capsule, 100 MG PO BID PRN for CONSTIPATION, (Reported) Hydrocodone/Acetaminophen (Hydrocodone-Acetamin 10-325 mg) 1 Each Tablet, 1 TAB PO Q8H PRN for MODERATE/SEVERE PAIN (PS 5-10), (Reported) Meclizine HCl (Meclizine HCl) 25 Mg Tab.chew, 25 MG PO BID PRN for VERTIGO/DIZZINESS, (Reported) Allergies Coded Allergies: Contrast Media (Verified Allergy, Severe, ANAPHYLAXIS, 03/08/20) SOB, HIVES Penicillins (Verified Allergy, Intermediate, HIVES, 03/08/20) Sulfa (Sulfonamide Antibiotics) (Verified Allergy, Mild, ITCHING, 03/08/20) sulfamethoxazole (Verified Allergy, Mild, ITCHING, 03/08/20) trimethoprim (Verified Allergy, Mild, ITCHING, 03/08/20) Quinolones (Verified Allergy, Unknown, RED STREAKS UP FOREARM AND ITCHING, 03/08/20) amitriptyline (Verified Adverse Reaction, Intermediate, PASSES OUT, 03/08/20) morphine (Verified Adverse Reaction, Intermediate, tablet form makes her nauseous, 03/17/21) aspirin (Verified Adverse Reaction, Mild, TUNNEL/BLURRY VISION, 03/08/20) GME ATTESTATION GME ATTESTATION My faculty preceptor for this patient encounter was physically present during the encounter and was fully available. All aspects of the patient interview, examination, medical decision making process, and medical care plan development were reviewed and approved by the faculty preceptor. The faculty preceptor is aware and concurs with the plan as stated in the body of this note and will attest to such by his/her cosignature. JESSICA HUGHES OMS-3 Mar 21, 2021 10:47
[2021-03-21] MEDS ORDERED: IBUPROFEN 600MG TAB PO ONE (11:55)
[2021-03-21] MEDS ORDERED: ONDANSETRON 4MG/2ML VIAL IV PRN (13:05)
[2021-03-21] MEDS: SCOPOLAMINE 1MG TRANSDERMAL PATCH TOP SCH (13:38)
[2021-03-21 14:00] VITALS: BP 158/85
[2021-03-21] MEDS ORDERED: NS 1,000 ML IV SCH (15:15)
[2021-03-21] MEDS ORDERED: ONDANSETRON 4 MG ORAL DISINTEGRATING TAB PO PRN (15:35)
--- NOTE | 2021-03-21 15:49 | IPNPDOC ---
Text Note Date of Service The patient was seen on 03/21/21. Subjective: Pt is a 76 year old female on gabapentin and pregabalin was admitted to the hospital for encephalopathy after overdosing on acetaminophen who was also found to have RODRIGO and UTI. Her mental status greatly improved since admission with encephalopathy resolved. Patient's left neck pain is still present. She said that she has new onset N/V and vertigo started yesterday afternoon when she trie d to sit up with PT. She described she feels the room is spinning. The vertigo, nausea, vomiting last for minutes. She did not have similar symptoms prior to this hospitalization. These symptoms reoccur with movement. She had decreased oral intake yesterday due to nausea. Review of systems: Head: Positive for mild headache. HEENT: Denies hearing changes Neck: Positive for left neck pain. Chest: Pt denies chest pain Lungs: Pt denies SOB, dyspnea GI: Denies abdominal pain. Positive for nausea. : Denies dysuria Neuro: Positive for chronic baseline pain in bilateral legs. Positive for angelica tigo with movements PHYSICAL EXAMINATION ON DISCHARGE: General: Pt was supine when seen. Pt was in no acute distress. HEENT: NC, AT, EOMI, no scleral icterus, moist membranes. Neck: No enlargement of thyroid or lymph nodes. Tenderness and swelling in left neck, without erythematous or warmness. No obvious openings or drainage were observed on left sided neck or cheek. Heart: S1 and S2 present. No extra heart sounds or murmurs. Lungs: BL clear and equal breath sounds. No wheezing, stridor, or crackles. ABD: Bowel sounds present. No tenderness on superficial or deep palpation. Extremities: No edema seen on exam. +2/4 BL posterior tibial and pedal pulses. +5/5 strength in all 4 extremities Neuro:CN2-12 grossly intact. Assessment: 76 y/o female with PMHx of HepC (treated in 2017), COPD, depression, Insomnia, HTN, hyperlipidemia, GE reflux, osteoporosis, NAFLD, splenomegaly, recurrent UTIs, chronic pain, osteoarthritis, and peripheral neuropathy who initially presented with encephalopathy found to be on several sedating home medications and high acetaminophen level. Encephalopathy resolved after holding home sedating medications and received NAC. Her elevated liver enzymes and coagulopathy 2/2 to acetaminophen toxicity has been improving. On Levaquin for klebsiella UTI and left side neck infection. She continues to complain about left neck pain with a left-sided neck swelling. She has new onset vertigo Plan: # Vertigo of unknown etiology possibly 2/2 vestibular neuritis/labyrinthitis associated with left sided neck infection. - New-onset, lasting for minutes, without hearing changes. Other ddx include BPPV and perilymphatic fistula. - On Meclizine and Zofran PRN for vertigo and N/V. - ENT has been consulted, pending technical consultant recommendation # Left-sided enlarged neck swelling unclear etiology, likely sialoadenitis vs parapharyngeal abscess -No obvious erythema, drainage, or bleeding on left cheek and left neck. No drainage inside oral region. - Neck CT showed "Soft tissue infectious/inflammatory changes in the left neck." - ENT was consulted, and Dr. Corbin said the patient will see him in the clinic. Pending ENT advice - Patient already on antibiotics levaquin for UTI # Encephalopathy possibly 2/2 to accumulation of gabapentin, pregabalin, and fentanyl, resolved. - Head CT was negative for any acute changes. - D/C pregabalin, gabapentin, oxycodone, and fentanyl. - Today Pt has a GCS of 15 and Alert and oriented*4. Mental status will continue to be monitored. - Fall precautions. # Liver transaminitis likely 2/2 to Acetaminophen toxicity, improving - Elevated Acetaminophen levels upon admission, down trending. - Completed NAC treatment per recommendations from poison control. - AST, ALT, and ammonia level improving - Liver ultrasound found enlarged liver with cortical echotexture. Unclear whether this damage is acute or from chronic NAFLD. # UTI associated with polymicrobes - Patient has positive leukocyte esterase, elevated WBCs, and urine bacteria. - UC show that the Pt's UTI is caused by Klebsiella, Stenotrophomonas maltophi liainfections,Enterococcus Faecalis, and Staph Aureus. Day #3 Levaquin. # Pancytopenia, improving, may be related with recent illness - Patient's CBC with differential shows absolute neutrophil count improved to >2000 - Peripheral smear results above - confirm pancytopenia. - Need outpatient follow up for pancytopenia # Chronic Pain management - For chronic migraines and diabetic neuropathy - Pt's home medications pregabalin and fentanyl were D/C as these may have contributed to her encephalopathy - Pt was started on 100mg gabapentin TID for pain relief as her encephalopathy had resolved. # Hypertension - Continue home med Carvedilol. - Blood pressure stable # Diabetes mellitus type 2 - Hold glimepiride - Carbohydrate consistent diet with aspiration precaution - Sliding scale insulin, glucose checks, hypoglycemia protocol # COPD - Stable, not in exacerbation - Continue Advair, Spiriva, albuterol PRN # Hyperlipidemia - Continue simvastatin # Overactive bladder - Hold oxybutynin as it can cause confusion - Hold mirabegron # GERD - Continue pantoprazole. # DVT prophylaxis - SC Heparin Code status: Full code. Disposition: Nausea, emesis, and vertigo likely associated with vestibular neuritis and left neck swelling. Pending ENT recommendation. Stay expected at least 1 more night. VS,Fishbone, I+O VS, Fishbone, I+O Laboratory Tests 03/21/21 05:50 Vital Signs Date Time Temp Pulse Resp B/P (MAP) Pulse Ox O2 Delivery O2 Flow Rate FiO2 03/21/21 10:19 85 121/79 03/21/21 06:00 98.4 16 99 Room Air 03/17/21 04:16 2.0 I&O- Last 24 Hours up to 6 AM 03/21/21 06:00 Intake Total 780 ml Output Total 3800 ml Balance -3020 ml GME ATTESTATION GME ATTESTATION My faculty preceptor for this patient encounter was physically present during the encounter and was fully available. All aspects of the patient interview, examination, medical decision making process, and medical care plan development were reviewed and approved by the faculty preceptor. The faculty preceptor is aware and concurs with the plan as stated in the body of this note and will attest to such by his/her cosignature. JESSICA HUGHES OMS-3 Mar 21, 2021 15:49 DARÍO RASHID DO Mar 21, 2021 16:50
[2021-03-21] MEDS: MONTELUKAST 10 MG TAB PO SCH (21:00)
[2021-03-21] MEDS: traZODone 50 MG TAB PO SCH (21:00)
[2021-03-21] MEDS: SIMVASTATIN 20 MG TAB PO SCH (21:00)
[2021-03-22] MEDS: RAMELTEON 8 MG TAB (ROZEREM) PO PRN (01:29)
[2021-03-22] MEDS: LevoFLOXacin 750 MG TABLET PO SCH (05:45)
[2021-03-22 06:00] VITALS: BP 149/79
[2021-03-22 06:50] LABS: HEMATOCRIT 26.3 % (36.0-47.0); MEAN CORPUSCULAR HEMOGLOBIN 28.7 pg (27.0-33.0); MEAN CORPUSCULAR HGB CONC 34.2 g/dl (32.0-36.5); MEAN CORPUSCULAR VOLUME 83.8 fl (80.0-96.0); PLATELET COUNT, AUTOMATED 127 10^3/uL (150-450); RED BLOOD COUNT 3.14 10^6/uL (4.00-5.40); WHITE BLOOD COUNT 4.5 10^3/uL (4.0-10.0)
[2021-03-22] MEDS: TIOTROPIUM INHALER/CAPSULE (SPIRIVA) INH SCH (07:19)
[2021-03-22] MEDS: ADVAIR HFA 230/21MCG INHALER INH SCH ×2 (07:19→19:52)
[2021-03-22 07:22] LABS: ACETAMINOPHEN LEVEL 3.2 UG/ML (10.0-30.0); ALBUMIN 2.5 GM/DL (3.2-5.2); ALT/SGPT 455 U/L (12-78); BILIRUBIN,DIRECT 0.4 MG/DL (0.0-0.2); BILIRUBIN,TOTAL 0.7 MG/DL (0.2-1.0); BLOOD UREA NITROGEN 7 MG/DL (7-18); CALCIUM LEVEL 8.1 MG/DL (8.8-10.2); CARBON DIOXIDE LEVEL 29 MEQ/L (21-32); CHLORIDE LEVEL 103 MEQ/L (98-107); CREATININE FOR GFR 0.92 MG/DL (0.55-1.30); GLOMERULAR FILTRATION RATE > 60.0 (>39); GLUCOSE, FASTING 129 MG/DL (70-100); POTASSIUM SERUM 3.6 MEQ/L (3.5-5.1); SODIUM LEVEL 137 MEQ/L (136-145); TOTAL PROTEIN 5.9 GM/DL (6.4-8.2)
[2021-03-22] MEDS: HEPARIN SOD (PORCINE) 5000UNITS/ML 1ML VIAL/SYRINGE SC SCH ×2 (08:28→21:13)
[2021-03-22] MEDS: GABAPENTIN 100 MG CAP PO SCH ×3 (08:29→21:14)
[2021-03-22] MEDS: HumaLOG INSULIN (NovoLOG) PER UNIT SC SCH ×4 (08:29→21:00)
[2021-03-22] MEDS: PANTOPRAZOLE 40MG TAB (PROTONIX) PO SCH (08:29)
[2021-03-22] MEDS: FOLIC ACID 1 MG TAB PO SCH ×2 (08:29→21:15)
[2021-03-22] MEDS: FERROUS SULFATE 325MG TAB PO SCH (08:29)
[2021-03-22 08:32] VITALS: BP 143/73
[2021-03-22] MEDS: CLOPIDOGREL 75 MG TAB PO SCH (08:32)
[2021-03-22] MEDS: CARVedilol 3.125 MG TAB PO SCH ×2 (08:32→21:15)
--- NOTE | 2021-03-22 15:32 | IPNPDOC ---
Text Note Date of Service The patient was seen on 03/22/21. NOTE Subjective: No any acute events overnight. Patient alert, awake and oriented in the morning Objective: GENERAL APPEARANCE: NAD HEENT: no scleral icterus, no JVD, EOMI CARDIOVASCULAR: S1S2 LUNGS: CTA ABDOMEN: soft & not tender w palpation MUSCULOSKELETAL: no cyanosis, no swelling INTEGUMENT: no generalized pallor NEUROLOGICAL: cranial nerve function from 2-12 intact, follows commands, speech not dysarthric Assessment and plan 76 y/o female with PMHx of HepC (treated in 2017), COPD, depression, Insomnia, HTN, hyperlipidemia, GE reflux, osteoporosis, NAFLD, splenomegaly, recurrent UTIs, chronic pain, osteoarthritis, and peripheral neuropathy who initially presented with encephalopathy found to be on several sedating home medications and high acetaminophen level. Patient received treatment with NAC. Subsequently metabolic encephalopathy resolved. Vertigo Unknown etiology for now Differential diagnosis includes labyrinthitis, vestibular neuritis PT OT evaluation to rule out benign positional vertigo Continue meclizine Left-sided neck swelling ENT was consulted, and Dr. Corbin recommended follow-up in the outpatient settings Metabolic encephalopathy Most likely secondary to medication side effects including Tylenol toxicity Resolved Deconditioning PT OT recommended rehab after DC Liver transaminitis Improved and trending down Secondary to Tylenol overdose Patient received NAC UTI UC show that the Pt's UTI is caused by Klebsiella, Stenotrophomonas maltophiliainfections,Enterococcus Faecalis, and Staph Aureus. Day #4 Levaquin Pancytopenia Iron, B12, folate within normal limit We will check stool for occult blood Hypertension Blood pressure under control Continue home meds Type 2 diabetes Insulin sliding scale Diabetes diet Glucose level under control COPD Not in acute exacerbation Continue home inhalers Hyperlipidemia Continue simvastatin GERD Continue PPI Overactive bladder Metabolic encephalopathy resolved Continue oxybutynin DVT prophylaxis With heparin Patient will be transferred to [facility] status VS,Fishbone, I+O VS, Fishbone, I+O Laboratory Tests 03/22/21 06:31 Vital Signs Date Time Temp Pulse Resp B/P (MAP) Pulse Ox O2 Delivery O2 Flow Rate FiO2 03/22/21 08:32 85 143/73 (96) 03/22/21 06:00 98.2 18 96 Room Air 03/17/21 04:16 2.0 l I&O- Last 24 Hours up to 6 AM 03/22/21 06:00 Intake Total 300 ml Output Total 1250 ml Balance -950 ml KIARA BYERS DO Mar 22, 2021 15:32
[2021-03-22] MEDS: LISINOPRIL *2.5 MG* TAB PO SCH (17:55)
[2021-03-22 21:00] VITALS: BP 140/67
[2021-03-22] MEDS: oxyBUTYnin *DITROPAN XL* 5 MG TABCR PO SCH (21:14)
[2021-03-22] MEDS: SIMVASTATIN 20 MG TAB PO SCH (21:15)
[2021-03-22] MEDS: traZODone 50 MG TAB PO SCH (21:15)
[2021-03-22] MEDS: MONTELUKAST 10 MG TAB PO SCH (21:15)
[2021-03-23 05:04] LABS: BASO % 0.2 % (0.0-1.0); EOS # 0.1 10^3/uL (0.0-0.5); EOS % 1.4 % (0.0-3.0); HEMATOCRIT 27.3 % (36.0-47.0); HEMOGLOBIN 9.1 g/dl (12.0-15.5); LYMPH # 1.2 10^3/uL (1.5-5.0); LYMPH % 27.6 % (24.0-44.0); MEAN CORPUSCULAR HEMOGLOBIN 28.4 pg (27.0-33.0); MEAN CORPUSCULAR HGB CONC 33.3 g/dl (32.0-36.5); MEAN CORPUSCULAR VOLUME 85.3 fl (80.0-96.0); MONO # 0.4 10^3/uL (0.0-0.8); MONO % 10.6 % (2.0-8.0); NEUTROPHILS # 2.5 10^3/uL (1.5-8.5); PLATELET COUNT, AUTOMATED 120 10^3/uL (150-450); WHITE BLOOD COUNT 4.2 10^3/uL (4.0-10.0)
[2021-03-23 05:31] LABS: ALBUMIN 2.4 GM/DL (3.2-5.2); ALT/SGPT 321 U/L (12-78); BILIRUBIN,DIRECT 0.4 MG/DL (0.0-0.2); BILIRUBIN,TOTAL 0.6 MG/DL (0.2-1.0); BLOOD UREA NITROGEN 8 MG/DL (7-18); CALCIUM LEVEL 8.2 MG/DL (8.8-10.2); CARBON DIOXIDE LEVEL 29 MEQ/L (21-32); CHLORIDE LEVEL 105 MEQ/L (98-107); GLOMERULAR FILTRATION RATE > 60.0 (>39); GLUCOSE, FASTING 127 MG/DL (70-100); MAGNESIUM LEVEL 1.6 MG/DL (1.8-2.4); POTASSIUM SERUM 3.4 MEQ/L (3.5-5.1); SODIUM LEVEL 140 MEQ/L (136-145); TOTAL PROTEIN 5.7 GM/DL (6.4-8.2)
[2021-03-23] MEDS: LevoFLOXacin 750 MG TABLET PO SCH (06:50)
[2021-03-23] MEDS: ADVAIR HFA 230/21MCG INHALER INH SCH ×2 (07:23→19:45)
[2021-03-23] MEDS: TIOTROPIUM INHALER/CAPSULE (SPIRIVA) INH SCH (07:23)
[2021-03-23] MEDS: HumaLOG INSULIN (NovoLOG) PER UNIT SC SCH ×4 (07:53→21:00)
[2021-03-23] MEDS ORDERED: MIRALAX *UNIT DOSE* 17GM PACKET PO PRN (08:05)
[2021-03-23] MEDS: HEPARIN SOD (PORCINE) 5000UNITS/ML 1ML VIAL/SYRINGE SC SCH ×2 (08:43→20:19)
[2021-03-23] MEDS: oxyBUTYnin *DITROPAN XL* 5 MG TABCR PO SCH ×2 (08:45→20:19)
[2021-03-23] MEDS: FOLIC ACID 1 MG TAB PO SCH ×2 (08:46→20:19)
[2021-03-23] MEDS: FERROUS SULFATE 325MG TAB PO SCH (08:46)
[2021-03-23] MEDS: LISINOPRIL *2.5 MG* TAB PO SCH (08:46)
[2021-03-23] MEDS: GABAPENTIN 100 MG CAP PO SCH ×3 (08:46→20:19)
[2021-03-23] MEDS: CLOPIDOGREL 75 MG TAB PO SCH (08:47)
[2021-03-23] MEDS: CARVedilol 3.125 MG TAB PO SCH ×2 (08:47→20:20)
[2021-03-23] MEDS: PANTOPRAZOLE 40MG TAB (PROTONIX) PO SCH (08:47)
[2021-03-23 08:51] VITALS: BP 130/68
[2021-03-23] MEDS ORDERED: POTASSIUM CHLORIDE 10MEQ SR TABLET PO ONE (09:00)
[2021-03-23] MEDS: traMADol 50 MG TAB PO PRN (13:08)
[2021-03-23 14:00] VITALS: BP 133/99
[2021-03-23] MEDS ORDERED: NS 1,000 ML IV ONE (15:15)
[2021-03-23] MEDS ORDERED: IBUPROFEN 400MG TAB PO PRN (15:15)
[2021-03-23] MEDS ORDERED: VANCOMYCIN HCL 1,000 MG, VIAL MATE ADAPTER 1 EACH in NS 250 ML IV SCH (15:15)
[2021-03-23] MEDS ORDERED: CEFEPIME HCL 2 GM in D5W MINI-BAG PLUS 50 ML IV SCH (16:00)
[2021-03-23] MEDS ORDERED: VANCOMYCIN HCL 750 MG, VIAL MATE ADAPTER 1 EACH in NS 250 ML IV ONE ×2 (17:00→18:00)
[2021-03-23 17:48] LABS: ALBUMIN 2.6 GM/DL (3.2-5.2); BILIRUBIN,TOTAL 0.6 MG/DL (0.2-1.0); CALCIUM LEVEL 8.3 MG/DL (8.8-10.2); CREATININE FOR GFR 1.05 MG/DL (0.55-1.30); GLOMERULAR FILTRATION RATE 54.4 (>39); POTASSIUM SERUM 4.7 MEQ/L (3.5-5.1); TOTAL PROTEIN 5.9 GM/DL (6.4-8.2)
[2021-03-23] MEDS: MONTELUKAST 10 MG TAB PO SCH (20:19)
[2021-03-23] MEDS: SIMVASTATIN 20 MG TAB PO SCH (20:20)
[2021-03-23] MEDS: traZODone 50 MG TAB PO SCH (20:20)
[2021-03-23 21:00] VITALS: BP 114/65
[2021-03-24 06:23] LABS: BASO % 0.3 % (0.0-1.0); EOS # 0.1 10^3/uL (0.0-0.5); EOS % 2.2 % (0.0-3.0); HEMOGLOBIN 9.3 g/dl (12.0-15.5); LYMPH % 28.7 % (24.0-44.0); MEAN CORPUSCULAR HEMOGLOBIN 29.2 pg (27.0-33.0); MEAN CORPUSCULAR HGB CONC 33.2 g/dl (32.0-36.5); MEAN CORPUSCULAR VOLUME 88.1 fl (80.0-96.0); MONO # 0.3 10^3/uL (0.0-0.8); MONO % 8.8 % (2.0-8.0); NEUTROPHILS # 2.1 10^3/uL (1.5-8.5); NEUTROPHILS % 58.9 % (36.0-66.0); PLATELET COUNT, AUTOMATED 115 10^3/uL (150-450); RED BLOOD COUNT 3.18 10^6/uL (4.00-5.40); WHITE BLOOD COUNT 3.6 10^3/uL (4.0-10.0)
[2021-03-24 06:39] VITALS: BP 136/64
[2021-03-24 06:44] LABS: ALBUMIN 2.4 GM/DL (3.2-5.2); ALT/SGPT 223 U/L (12-78); BILIRUBIN,TOTAL 0.5 MG/DL (0.2-1.0); BLOOD UREA NITROGEN 9 MG/DL (7-18); CALCIUM LEVEL 8.1 MG/DL (8.8-10.2); CARBON DIOXIDE LEVEL 29 MEQ/L (21-32); CHLORIDE LEVEL 106 MEQ/L (98-107); CREATININE FOR GFR 0.94 MG/DL (0.55-1.30); GLOMERULAR FILTRATION RATE > 60.0 (>39); GLUCOSE, FASTING 151 MG/DL (70-100); MAGNESIUM LEVEL 1.7 MG/DL (1.8-2.4); POTASSIUM SERUM 3.9 MEQ/L (3.5-5.1); SODIUM LEVEL 139 MEQ/L (136-145); TOTAL PROTEIN 5.6 GM/DL (6.4-8.2)
[2021-03-24] MEDS: TIOTROPIUM INHALER/CAPSULE (SPIRIVA) INH SCH (07:17)
[2021-03-24] MEDS: ADVAIR HFA 230/21MCG INHALER INH SCH ×2 (07:17→20:34)
[2021-03-24] MEDS: FOLIC ACID 1 MG TAB PO SCH ×2 (08:55→20:52)
[2021-03-24] MEDS: CARVedilol 3.125 MG TAB PO SCH ×2 (08:58→20:51)
[2021-03-24] MEDS: LISINOPRIL *2.5 MG* TAB PO SCH (08:58)
[2021-03-24] MEDS: CLOPIDOGREL 75 MG TAB PO SCH (08:58)
[2021-03-24] MEDS: FERROUS SULFATE 325MG TAB PO SCH (08:59)
[2021-03-24] MEDS: oxyBUTYnin *DITROPAN XL* 5 MG TABCR PO SCH ×2 (08:59→20:51)
[2021-03-24] MEDS: GABAPENTIN 100 MG CAP PO SCH ×3 (08:59→20:52)
[2021-03-24] MEDS: PANTOPRAZOLE 40MG TAB (PROTONIX) PO SCH (08:59)
[2021-03-24] MEDS: HEPARIN SOD (PORCINE) 5000UNITS/ML 1ML VIAL/SYRINGE SC SCH ×2 (09:00→20:52)
[2021-03-24] MEDS: HumaLOG INSULIN (NovoLOG) PER UNIT SC SCH ×4 (09:09→21:00)
[2021-03-24] MEDS ORDERED: LevoFLOXacin 500 MG TABLET PO ONE (09:50)
[2021-03-24] MEDS: SCOPOLAMINE 1MG TRANSDERMAL PATCH TOP SCH (13:27)
[2021-03-24] MEDS: MONTELUKAST 10 MG TAB PO SCH (20:51)
[2021-03-24] MEDS: traZODone 50 MG TAB PO SCH (20:52)
[2021-03-24] MEDS: SIMVASTATIN 20 MG TAB PO SCH (20:52)
[2021-03-25] MEDS: traMADol 50 MG TAB PO PRN (04:29)
[2021-03-25 06:00] VITALS: BP 130/63
[2021-03-25] MEDS ORDERED: LevoFLOXacin 500 MG TABLET PO SCH (06:00)
[2021-03-25 06:36] LABS: EOS # 0.1 10^3/uL (0.0-0.5); EOS % 1.8 % (0.0-3.0); HEMOGLOBIN 9.5 g/dl (12.0-15.5); LYMPH # 1.1 10^3/uL (1.5-5.0); LYMPH % 20.9 % (24.0-44.0); MEAN CORPUSCULAR HEMOGLOBIN 28.9 pg (27.0-33.0); MEAN CORPUSCULAR HGB CONC 32.8 g/dl (32.0-36.5); MEAN CORPUSCULAR VOLUME 88.1 fl (80.0-96.0); MONO # 0.4 10^3/uL (0.0-0.8); MONO % 7.4 % (2.0-8.0); NEUTROPHILS # 3.6 10^3/uL (1.5-8.5); NEUTROPHILS % 69.3 % (36.0-66.0); PLATELET COUNT, AUTOMATED 136 10^3/uL (150-450); RED BLOOD COUNT 3.29 10^6/uL (4.00-5.40); WHITE BLOOD COUNT 5.1 10^3/uL (4.0-10.0)
[2021-03-25 07:03] LABS: ALBUMIN 2.8 GM/DL (3.2-5.2); ALT/SGPT 191 U/L (12-78); BILIRUBIN,TOTAL 0.5 MG/DL (0.2-1.0); BLOOD UREA NITROGEN 11 MG/DL (7-18); CALCIUM LEVEL 8.7 MG/DL (8.8-10.2); CARBON DIOXIDE LEVEL 28 MEQ/L (21-32); CHLORIDE LEVEL 105 MEQ/L (98-107); CREATININE FOR GFR 0.89 MG/DL (0.55-1.30); GLOMERULAR FILTRATION RATE > 60.0 (>39); GLUCOSE, FASTING 145 MG/DL (70-100); MAGNESIUM LEVEL 1.8 MG/DL (1.8-2.4); POTASSIUM SERUM 4.4 MEQ/L (3.5-5.1); SODIUM LEVEL 138 MEQ/L (136-145); TOTAL PROTEIN 6.3 GM/DL (6.4-8.2)
[2021-03-25] MEDS: TIOTROPIUM INHALER/CAPSULE (SPIRIVA) INH SCH (07:23)
[2021-03-25] MEDS: ADVAIR HFA 230/21MCG INHALER INH SCH (07:23)
[2021-03-25] MEDS: PANTOPRAZOLE 40MG TAB (PROTONIX) PO SCH (08:20)
[2021-03-25] MEDS: HEPARIN SOD (PORCINE) 5000UNITS/ML 1ML VIAL/SYRINGE SC SCH (08:20)
[2021-03-25] MEDS: LISINOPRIL *2.5 MG* TAB PO SCH (08:20)
[2021-03-25] MEDS: HumaLOG INSULIN (NovoLOG) PER UNIT SC SCH ×2 (08:20→13:44)
[2021-03-25 08:21] VITALS: BP 131/64
[2021-03-25] MEDS: CLOPIDOGREL 75 MG TAB PO SCH (08:21)
[2021-03-25] MEDS: FOLIC ACID 1 MG TAB PO SCH (08:21)
[2021-03-25] MEDS: GABAPENTIN 100 MG CAP PO SCH (08:21)
[2021-03-25] MEDS: FERROUS SULFATE 325MG TAB PO SCH (08:21)
[2021-03-25] MEDS: CARVedilol 3.125 MG TAB PO SCH (08:21)
[2021-03-25] MEDS: oxyBUTYnin *DITROPAN XL* 5 MG TABCR PO SCH (08:21)
[2021-03-25] MEDS ORDERED: GABA-1171 PO (11:26)
--- NOTE | 2021-03-25 15:45 | DS.PDOC ---
Discharge Summary General Date of Admission Mar 16, 2021 at 22:30 Date of Discharge 03/25/21 Discharge Summary PROCEDURES PERFORMED DURING STAY: [None]. ADMITTING DIAGNOSES: Vertigo Left-sided neck swelling Metabolic encephalopathy Deconditioning Liver transaminitis UTI Pancytopenia Hypertension Type 2 diabetes COPD Hyperlipidemia GERD Overactive bladder DISCHARGE DIAGNOSES: Vertigo Left-sided neck swelling Metabolic encephalopathy Deconditioning Liver transaminitis UTI Pancytopenia Hypertension Type 2 diabetes COPD Hyperlipidemia GERD Overactive bladder COMPLICATIONS/CHIEF COMPLAINT: Acetaminophen, Jonny, Toxic Encephalopathy. HISTORY OF PRESENT ILLNESS:76 y/o female with PMHx of HepC (treated in 2017), COPD, depression, Insomnia, HTN, hyperlipidemia, GE reflux, osteoporosis, NAFLD, splenomegaly, recurrent UTIs, chronic pain, osteoarthritis, and peripheral neuropathy who initially presented with encephalopathy found to be on several sedating home medications and high acetaminophen level. Patient received treatment with NAC. Subsequently metabolic encephalopathy resolved HOSPITAL COURSE: During the hospital stay the following issue addressed Vertigo Unknown etiology for now Differential diagnosis includes labyrinthitis, vestibular neuritis Improved Follow-up with PCP in the outpatient settings Patient received meclizine with positive effect Left-sided neck swelling ENT was consulted, and Dr. Corbin recommended follow-up in the outpatient settings Metabolic encephalopathy Most likely secondary to medication side effects including Tylenol toxicity, patient received treatment with NAC Resolved Deconditioning PT OT recommended rehab after DC Liver transaminitis Improved and trending down Secondary to Tylenol overdose Patient received NAC UTI UA show that the Pt's UTI is caused by Klebsiella, Stenotrophomonas maltophilia infections,Enterococcus Faecalis, and Staph Aureus. Patient completed the course of levofloxacin Pancytopenia Iron, B12, folate within normal limit DISCHARGE MEDICATIONS: Please see below. ALLERGIES: Please see below. PHYSICAL EXAMINATION ON DISCHARGE: VITAL SIGNS: Please see below. GENERAL APPEARANCE: NAD HEENT: no scleral icterus, no JVD, EOMI CARDIOVASCULAR: S1S2 LUNGS: CTA ABDOMEN: soft & not tender w palpation MUSCULOSKELETAL: no cyanosis, no swelling INTEGUMENT: no generalized pallor NEUROLOGICAL: cranial nerve function from 2-12 intact, follows commands, speech not dysarthric LABORATORY DATA: Please see below. PROGNOSIS: Fair ACTIVITY: [As tolerated]. DIET: Cardiac DISPOSITION: Home Health Service. ITEMS TO FOLLOWUP ON ON OUTPATIENT: Follow-up with PCP and ENT DISCHARGE CONDITION: [Stable]. TIME SPENT ON DISCHARGE: 40 minutes. Vital Signs/I&Os Vital Signs Date Time Temp Pulse Resp B/P (MAP) Pulse Ox O2 Delivery O2 Flow Rate FiO2 03/25/21 08:21 87 131/64 03/25/21 06:00 98.6 18 97 Room Air I&O- Last 24 Hours up to 6 AM 03/25/21 06:00 Intake Total 1535 ml Output Total 2025 ml Balance -490 ml Laboratory Data Labs 24H Laboratory Tests 2 03/24/21 17:31: Bedside Glucose (Misc Panel) 137H 03/24/21 21:25: Bedside Glucose (Misc Panel) 191H 03/25/21 06:16: Immature Granulocyte % (Auto) 0.6, Neutrophils (%) (Auto) 69.3H, Lymphocytes (%) (Auto) 20.9L, Monocytes (%) (Auto) 7.4, Eosinophils (%) (Auto) 1.8, Basophils (%) (Auto) 0.0, Neutrophils # (Auto) 3.6, Lymphocytes # (Auto) 1.1L, Monocytes # (Auto) 0.4, Eosinophils # (Auto) 0.1, Basophils # (Auto) 0.0, Nucleated Red Blood Cells % (auto) 0.0, Anion Gap 5L, Glomerular Filtration Rate > 60.0, Calcium Level 8.7L, Magnesium Level 1.8, Total Bilirubin 0.5, Aspartate Amino Transf (AST/SGOT) 28, Alanine Aminotransferase (ALT/SGPT) 191H, Alkaline Phosphatase 115, Total Protein 6.3L, Albumin 2.8L, Albumin/Globulin Ratio 0.8L 03/25/21 11:43: Bedside Glucose (Misc Panel) 139H CBC/BMP Laboratory Tests 03/25/21 06:16 FSBS Laboratory Tests Test 03/24/21 17:31 03/24/21 21:25 03/25/21 11:43 Range/Units Bedside Glucose (Misc Panel) 137 191 139 83-110 MG/DL Microbiology Microbiology 03/24/21 Urine Culture, Received Pending 03/22/21 Stool Occult Blood ([place]) - Final, Complete 03/17/21 Blood Culture - Final, Complete NO GROWTH AFTER 5 DAYS 03/16/21 Urine Culture - Final, Complete Klebsiella Pneumoniae Stenotrophomonas Maltophilia Staphylococcus Aureus Enterococcus Faecalis 03/16/21 Blood Culture - Final, Complete Corynebacterium Species Discharge Medications Scheduled Carvedilol (Carvedilol) 3.125 Mg Tablet, 3.125 MG PO BID, (Reported) Cephalexin (Cephalexin) 500 Mg Capsule, 500 MG PO QID, (Reported) STARTED ON 03/14/21 Clopidogrel Bisulfate (Clopidogrel) 75 Mg Tablet, 75 MG PO DAILY, (Reported) Fentanyl (Fentanyl) 12 Mcg Patch.td72, 12 MCG TD Q3RD, (Reported) Ferrous Sulfate (Ferrous Sulfate) 325 Mg Tab, 325 MG PO DAILY, (Reported) Folic Acid (Folic Acid) 1 Mg Tab, 1 MG PO BID, (Reported) Gabapentin (Gabapentin) 100 Mg Capsule, 1 CAP PO TID Glimepiride (Glimepiride) 2 Mg Tablet, 2 MG PO DAILY, (Reported) Lisinopril (Lisinopril) 2.5 Mg Tablet, 2.5 MG PO DAILY, (Reported) Methenamine Hippurate (Methenamine Hippurate) 1 Gm Tab, 1 GRAM PO BID, (Reported) Mirabegron (Myrbetriq) 50 Mg Tab.er.24h, 50 MG PO DAILY, (Reported) Mirtazapine (Remeron) 30 Mg Tablet, 30 MG PO QHS, (Reported) Montelukast Sodium (Montelukast Sodium) 10 Mg Tablet, 10 MG PO QHS, (Reported) Oxybutynin Chloride (Oxybutynin Chloride ER) 10 Mg Tab.er.24, 10 MG PO BID, (Reported) Pantoprazole Sodium (Pantoprazole Sodium) 40 Mg Tablet.dr, 40 MG PO DAILY, (Reported) Salmeterol/Fluticasone (Advair 500-50 Diskus) 1 Each Blst.w.dev, 1 PUFF INH BID, (Reported) Simvastatin (Simvastatin) 20 Mg Tab, 20 MG PO QHS, (Reported) Tiotropium [place] (Spiriva) 18 Mcg Cap.w.dev, 1 PUFF INH DAILY, (Reported) Trazodone HCl (Trazodone HCl) 100 Mg Tablet, 200 MG PO QHS, (Reported) Scheduled PRN Albuterol Sulfate (Proair Hfa) 8.5 Gm Hfa.aer.ad, 2 PUFF INH Q4H PRN for SHORTNESS OF BREATH, (Reported) Docusate Sodium (Docusate Sodium) 100 Mg Capsule, 100 MG PO BID PRN for CONSTIPATION, (Reported) Hydrocodone/Acetaminophen (Hydrocodone-Acetamin 10-325 mg) 1 Each Tablet, 1 TAB PO Q8H PRN for MODERATE/SEVERE PAIN (PS 5-10), (Reported) Meclizine HCl (Meclizine HCl) 25 Mg Tab.chew, 25 MG PO BID PRN for VERTIGO/DIZZINESS, (Reported) Allergies Coded Allergies: Contrast Media (Verified Allergy, Severe, ANAPHYLAXIS, 03/08/20) SOB, HIVES Penicillins (Verified Allergy, Intermediate, HIVES, 03/08/20) Sulfa (Sulfonamide Antibiotics) (Verified Allergy, Mild, ITCHING, 03/08/20) sulfamethoxazole (Verified Allergy, Mild, ITCHING, 03/08/20) trimethoprim (Verified Allergy, Mild, ITCHING, 03/08/20) Quinolones (Verified Allergy, Unknown, RED STREAKS UP FOREARM AND ITCHING, 03/08/20) amitriptyline (Verified Adverse Reaction, Intermediate, PASSES OUT, 03/08/20) morphine (Verified Adverse Reaction, Intermediate, tablet form makes her nauseous, 03/17/21) aspirin (Verified Adverse Reaction, Mild, TUNNEL/BLURRY VISION, 03/08/20) KIARA BYERS DO Mar 25, 2021 15:45
[2022-03-16] MEDS ORDERED: NALOXONE 2MG/2ML SYRINGE (J2310 PER 1MG) IV ONE (22:30)
== END 2021-03-25 14:04 | disposition home health service (06) | DRG 917 ==
LOC: M ED 22:29 → M ED INP 22:30 → ENRESERV 03-17 04:17 → M MSPAV 03-17 05:46
PROVIDERS: ADMIT Internal Medicine; ATTEND Internal Medicine
DX: T39.1X1A Poisoning by 4-Aminophenol derivatives, accidental (unintentional), initial encounter (principal); G92 Toxic encephalopathy; N39.0 Urinary tract infection, site not specified; D61.818 Other pancytopenia; N17.9 Acute kidney failure, unspecified; R22.1 Localized swelling, mass and lump, neck; Z72.3 Lack of physical exercise; R74.01 Elevation of levels of liver transaminase levels; I10 Essential (primary) hypertension; E11.42 Type 2 diabetes mellitus with diabetic polyneuropathy; J44.9 Chronic obstructive pulmonary disease, unspecified; E78.5 Hyperlipidemia, unspecified; K21.9 Gastro-esophageal reflux disease without esophagitis; N32.81 Overactive bladder; Z20.822 Contact with and (suspected) exposure to COVID-19; Z79.899 Other long term (current) drug therapy; Z88.0 Allergy status to penicillin; Z88.2 Allergy status to sulfonamides; Z88.8 Allergy status to other drugs, medicaments and biological substances; Z91.041 Radiographic dye allergy status; F32.9 Major depressive disorder, single episode, unspecified; G47.00 Insomnia, unspecified; M81.0 Age-related osteoporosis without current pathological fracture; Z90.13 Acquired absence of bilateral breasts and nipples; Z90.49 Acquired absence of other specified parts of digestive tract; Z90.79 Acquired absence of other genital organ(s); Z96.642 Presence of left artificial hip joint; Z87.891 Personal history of nicotine dependence; H66.92 Otitis media, unspecified, left ear; R42 Dizziness and giddiness; M54.5 Low back pain; M25.551 Pain in right hip; M25.552 Pain in left hip; B96.1 Klebsiella pneumoniae [K. pneumoniae] as the cause of diseases classified elsewhere

== ENCOUNTER → 2021-06-17 | Outpatient (REF) | payer MEDICARE, MEDICAID ==
[~2021-06-17] MED LIST changes: -CITA40TA4 PO; +CITA40TA7 PO; +DOCU100C17 PO; +GABA-1171 PO; +HYDR-4517 PO; -LISI-898 PO; +LISI5TAB11 PO; +LYRI150C PO; +MECL25CH45 PO; -MONT10TA10 PO; +MONT10TA97 PO
[2021-06-17 15:58] LABS: HEMOGLOBIN 12.2 g/dl (12.0-15.5); MEAN CORPUSCULAR HEMOGLOBIN 29.9 pg (27.0-33.0); MEAN CORPUSCULAR HGB CONC 33.9 g/dl (32.0-36.5); MEAN CORPUSCULAR VOLUME 88.2 fl (80.0-96.0); PLATELET COUNT, AUTOMATED 130 10^3/uL (150-450); RED BLOOD COUNT 4.08 10^6/uL (4.00-5.40); WHITE BLOOD COUNT 3.6 10^3/uL (4.0-10.0)
[2021-06-17 16:23] LABS: ALBUMIN 3.4 GM/DL (3.2-5.2); BILIRUBIN,TOTAL 0.5 MG/DL (0.2-1.0); CALCIUM LEVEL 8.2 MG/DL (8.8-10.2); CREATININE FOR GFR 1.05 MG/DL (0.55-1.30); GLOMERULAR FILTRATION RATE 54.4 (>39); POTASSIUM SERUM 4.4 MEQ/L (3.5-5.1); TOTAL PROTEIN 7.1 GM/DL (6.4-8.2)
== END ==
LOC: M SFHCADAM 13:20
PROVIDERS: ATTEND Physician Assistant
DX: K76.0 Fatty (change of) liver, not elsewhere classified (principal); E11.9 Type 2 diabetes mellitus without complications; N18.31 Chronic kidney disease, stage 3a; G89.29 Other chronic pain; M54.50 Low back pain, unspecified
CPT/HCPCS: 80053; 82140; 82397; 83036; 83520; 83883; 85027; G0463

== ENCOUNTER 2021-09-05 12:49 | Outpatient (RCR) | payer MEDICARE, MEDICAID | END 2021-09-08 | LOC: M PT 12:49 | PROVIDERS: ATTEND Physician Assistant | DX: R26.81 Unsteadiness on feet (principal) ==

== ENCOUNTER 2021-10-07 12:23 | Outpatient (RCR) | payer MEDICAID, MEDICARE | END 2021-10-09 | LOC: M PT 12:23 | PROVIDERS: ATTEND Physician Assistant | DX: R26.81 Unsteadiness on feet (principal) ==

== ENCOUNTER → 2021-10-31 | Outpatient (REF) | payer MEDICARE, MEDICAID ==
[~2021-10-31] MED LIST changes: +MECL-86 PO; +OXYC10TA12 PO; +PREG50CA PO; +TOLN1CRE23 TOP; +VITS42.53 TOP
[2021-10-31 12:08] LABS: BASO % 0.5 % (0.0-1.0); EOS # 0.1 10^3/uL (0.0-0.5); EOS % 3.1 % (0.0-3.0); HEMATOCRIT 31.7 % (36.0-47.0); HEMOGLOBIN 10.7 g/dl (12.0-15.5); LYMPH % 23.7 % (24.0-44.0); MEAN CORPUSCULAR HEMOGLOBIN 30.6 pg (27.0-33.0); MEAN CORPUSCULAR HGB CONC 33.8 g/dl (32.0-36.5); MEAN CORPUSCULAR VOLUME 90.6 fl (80.0-96.0); MONO # 0.7 10^3/uL (0.0-0.8); MONO % 16.8 % (2.0-8.0); NEUTROPHILS # 2.3 10^3/uL (1.5-8.5); NEUTROPHILS % 55.7 % (36.0-66.0); PLATELET COUNT, AUTOMATED 139 10^3/uL (150-450); WHITE BLOOD COUNT 4.2 10^3/uL (4.0-10.0)
[2021-10-31 12:33] LABS: ALBUMIN 3.2 GM/DL (3.2-5.2); BILIRUBIN,TOTAL 0.5 MG/DL (0.2-1.0); CALCIUM LEVEL 8.7 MG/DL (8.8-10.2); CREATININE FOR GFR 1.08 MG/DL (0.55-1.30); GLOMERULAR FILTRATION RATE 52.7 (>39); TOTAL PROTEIN 6.5 GM/DL (6.4-8.2)
== END ==
LOC: M SFHCADAM 10:33
PROVIDERS: ATTEND Physician Assistant
DX: L89.151 Pressure ulcer of sacral region, stage 1 (principal); R53.1 Weakness; D72.819 Decreased white blood cell count, unspecified; K76.0 Fatty (change of) liver, not elsewhere classified

== ENCOUNTER 2021-11-06 15:55 | Inpatient (IN) | payer MEDICARE ==
[~2021-11-06] VITALS: Ht 177.8 cm; Wt 79.7 kg
[2021-11-06] MEDS ORDERED: FLUT1BLS6 (17:51)
[2021-11-06 18:16] LABS: BASO % 0.2 % (0.0-1.0); HEMATOCRIT 30.5 % (36.0-47.0); HEMOGLOBIN 10.6 g/dl (12.0-15.5); LYMPH # 0.8 10^3/uL (1.5-5.0); LYMPH % 13.8 % (24.0-44.0); MEAN CORPUSCULAR HEMOGLOBIN 31.2 pg (27.0-33.0); MEAN CORPUSCULAR HGB CONC 34.8 g/dl (32.0-36.5); MEAN CORPUSCULAR VOLUME 89.7 fl (80.0-96.0); MONO # 0.6 10^3/uL (0.0-0.8); MONO % 10.8 % (2.0-8.0); NEUTROPHILS # 4.3 10^3/uL (1.5-8.5); NEUTROPHILS % 74.7 % (36.0-66.0); PLATELET COUNT, AUTOMATED 112 10^3/uL (150-450); WHITE BLOOD COUNT 5.7 10^3/uL (4.0-10.0)
[2021-11-06 18:37] LABS: CALCIUM LEVEL 8.4 MG/DL (8.8-10.2); CREATININE FOR GFR 1.15 MG/DL (0.55-1.30); POTASSIUM SERUM 4.1 MEQ/L (3.5-5.1)
[2021-11-06 18:41] LABS: CK-MB VALUE MASS < 1.0 NG/ML (<3.6); CPK CREATINE PHOSPHOKINASE 38 U/L (26-192); MB/CK RELATIVE INDEX 2.63 (< OR =4)
[2021-11-06] MEDS ORDERED: NS 1,000 ML IV ONE (19:35)
[2021-11-06 20:47] LABS: CK-MB VALUE MASS < 1.0 NG/ML (<3.6); CPK CREATINE PHOSPHOKINASE 44 U/L (26-192); MB/CK RELATIVE INDEX 2.27 (< OR =4)
[2021-11-06] MEDS ORDERED: AZITHROMYCIN 250MG TABLET PO ONE (23:50)
[2021-11-06] MEDS ORDERED: cefTRIAXone SOD 2 GM in D5W MINI-BAG PLUS 50 ML IV ONE (23:50)
[2021-11-07] MEDS ORDERED: DOXYCYCLINE HYCLATE 100 MG in D5W MINI-BAG PLUS 100 ML IV SCH ×2
[2021-11-07] MEDS ORDERED: DEXTROSE 50% 50 ML SYRINGE IV PRN (00:20)
[2021-11-07] MEDS ORDERED: GLUCOSE 4GM CHEW TABLET PO PRN (00:20)
[2021-11-07] MEDS ORDERED: GLUCAGON INJ 1MG VIAL SC PRN (00:20)
[2021-11-07] MEDS ORDERED: GLIM2TAB4 PO (00:22)
[2021-11-07] MEDS ORDERED: HOME MED LIST COMPLETE! XX SCH (00:25)
[2021-11-07] MEDS: HumaLOG INSULIN (NovoLOG) PER UNIT SC SCH ×5 (00:49→20:24)
[2021-11-07] MEDS ORDERED: NS 1,000 ML IV SCH (01:55)
[2021-11-07 02:00] VITALS: BP 178/83
[2021-11-07] MEDS ORDERED: VANCOMYCIN HCL 750 MG, VIAL MATE ADAPTER 1 EACH in NS 250 ML IV ONE ×2 (02:00→03:00)
[2021-11-07] MEDS ORDERED: ALBUTEROL 90 MCG/ACT 8GM HFA INHALER INH PRN (02:10)
[2021-11-07] MEDS: oxyCODONE 5MG TAB PO PRN ×2 (02:24→17:27)
[2021-11-07] MEDS ORDERED: traZODone 100 MG TAB PO ONE (02:35)
[2021-11-07] MEDS ORDERED: LevoFLOXacin IV 750 MG in IV 1 EA IV SCH (05:00)
[2021-11-07 06:00] VITALS: BP 160/90
[2021-11-07 06:24] LABS: BASO % 0.2 % (0.0-1.0); EOS % 0.2 % (0.0-3.0); LYMPH % 23.4 % (24.0-44.0); MEAN CORPUSCULAR HEMOGLOBIN 30.5 pg (27.0-33.0); MEAN CORPUSCULAR HGB CONC 34.5 g/dl (32.0-36.5); MEAN CORPUSCULAR VOLUME 88.4 fl (80.0-96.0); MONO # 0.8 10^3/uL (0.0-0.8); MONO % 18.7 % (2.0-8.0); NEUTROPHILS # 2.5 10^3/uL (1.5-8.5); PLATELET COUNT, AUTOMATED 112 10^3/uL (150-450); RED BLOOD COUNT 3.28 10^6/uL (4.00-5.40); WHITE BLOOD COUNT 4.4 10^3/uL (4.0-10.0)
[2021-11-07 06:53] LABS: ALBUMIN 2.5 GM/DL (3.2-5.2); ALT/SGPT 11 U/L (12-78); BILIRUBIN,TOTAL 0.5 MG/DL (0.2-1.0); BLOOD UREA NITROGEN 14 MG/DL (7-18); CALCIUM LEVEL 8.4 MG/DL (8.8-10.2); CARBON DIOXIDE LEVEL 26 MEQ/L (21-32); CHLORIDE LEVEL 106 MEQ/L (98-107); CREATININE FOR GFR 0.87 MG/DL (0.55-1.30); GLOMERULAR FILTRATION RATE > 60.0 (>39); GLUCOSE, FASTING 218 MG/DL (70-100); POTASSIUM SERUM 3.3 MEQ/L (3.5-5.1); SODIUM LEVEL 139 MEQ/L (136-145); TOTAL PROTEIN 6.3 GM/DL (6.4-8.2)
[2021-11-07] MEDS: TIOTROPIUM INHALER/CAPSULE (SPIRIVA) INH SCH (07:24)
[2021-11-07] MEDS: ADVAIR HFA 230/21MCG INHALER INH SCH ×2 (07:24→19:28)
[2021-11-07 10:00] VITALS: BP 131/60
[2021-11-07] MEDS: PANTOPRAZOLE 40MG TAB (PROTONIX) PO SCH (10:11)
[2021-11-07] MEDS: oxyBUTYnin *DITROPAN XL* 5 MG TABCR PO SCH ×2 (10:11→20:32)
[2021-11-07] MEDS: FOLIC ACID 1 MG TAB PO SCH ×2 (10:11→20:33)
[2021-11-07] MEDS: PREGABALIN 100 MG CAP (LYRICA) PO SCH ×2 (10:11→20:34)
[2021-11-07] MEDS: CLOPIDOGREL 75 MG TAB PO SCH (10:12)
[2021-11-07] MEDS: ENOXAPARIN 40MG/0.4ML SYRINGE (J1650 PER 10MG) SC SCH (10:12)
[2021-11-07] MEDS: FERROUS SULFATE 325MG TAB PO SCH (10:12)
[2021-11-07] MEDS: LISINOPRIL *2.5 MG* TAB PO SCH (10:15)
[2021-11-07] MEDS: CARVedilol 3.125 MG TAB PO SCH ×2 (10:16→20:33)
[2021-11-07] MEDS ORDERED: POTASSIUM CHLORIDE 10MEQ SR TABLET PO ONE (10:45)
[2021-11-07] MEDS: guaiFENesin ER 600 MG TAB PO SCH ×2 (12:57→20:34)
[2021-11-07 14:00] VITALS: BP 137/69
[2021-11-07] MEDS ORDERED: VANCOMYCIN HCL 1,000 MG, VIAL MATE ADAPTER 1 EACH in NS 250 ML IV SCH (15:00)
[2021-11-07] MEDS ORDERED: CLOTRIMAZOLE 1% TOPICAL CREAM 30GM TOP PRN (15:15)
[2021-11-07] MEDS: predniSONE 10 MG TAB PO SCH (17:27)
[2021-11-07 18:00] VITALS: BP 163/84
[2021-11-07] MEDS: MONTELUKAST 10 MG TAB PO SCH (20:32)
[2021-11-07] MEDS: SIMVASTATIN 20 MG TAB PO SCH (20:33)
[2021-11-07] MEDS: MIRTAZAPINE 15 MG TAB PO SCH (20:34)
[2021-11-07] MEDS: traZODone 100 MG TAB PO SCH (20:34)
[2021-11-07] MEDS: VITAMIN A & D OINTMENT 42.5GM TOP SCH (20:44)
[2021-11-07] MEDS ORDERED: METHENAMINE 1 GM PO SCH (21:00)
[2021-11-07 21:55] VITALS: BP 130/62
[2021-11-08 01:57] VITALS: BP 142/65
[2021-11-08 05:35] VITALS: BP 138/76
[2021-11-08 06:20] LABS: HEMATOCRIT 29.3 % (36.0-47.0); HEMOGLOBIN 10.1 g/dl (12.0-15.5); LYMPH # 0.7 10^3/uL (1.5-5.0); LYMPH % 22.9 % (24.0-44.0); MEAN CORPUSCULAR HEMOGLOBIN 31.1 pg (27.0-33.0); MEAN CORPUSCULAR HGB CONC 34.5 g/dl (32.0-36.5); MEAN CORPUSCULAR VOLUME 90.2 fl (80.0-96.0); MONO # 0.5 10^3/uL (0.0-0.8); NEUTROPHILS # 1.7 10^3/uL (1.5-8.5); NEUTROPHILS % 60.1 % (36.0-66.0); PLATELET COUNT, AUTOMATED 114 10^3/uL (150-450); RED BLOOD COUNT 3.25 10^6/uL (4.00-5.40); WHITE BLOOD COUNT 2.9 10^3/uL (4.0-10.0)
[2021-11-08] MEDS: oxyCODONE 5MG TAB PO PRN ×2 (06:55→19:50)
[2021-11-08 07:04] LABS: ALBUMIN 2.5 GM/DL (3.2-5.2); ALT/SGPT 13 U/L (12-78); BILIRUBIN,TOTAL 0.7 MG/DL (0.2-1.0); BLOOD UREA NITROGEN 18 MG/DL (7-18); CALCIUM LEVEL 8.7 MG/DL (8.8-10.2); CARBON DIOXIDE LEVEL 26 MEQ/L (21-32); CHLORIDE LEVEL 103 MEQ/L (98-107); GLOMERULAR FILTRATION RATE > 60.0 (>39); GLUCOSE, FASTING 274 MG/DL (70-100); POTASSIUM SERUM 4.5 MEQ/L (3.5-5.1); SODIUM LEVEL 136 MEQ/L (136-145); TOTAL PROTEIN 5.8 GM/DL (6.4-8.2)
[2021-11-08] MEDS: TIOTROPIUM INHALER/CAPSULE (SPIRIVA) INH SCH (07:29)
[2021-11-08] MEDS: ADVAIR HFA 230/21MCG INHALER INH SCH ×2 (07:29→19:03)
[2021-11-08] MEDS: HumaLOG INSULIN (NovoLOG) PER UNIT SC SCH ×4 (08:10→20:28)
[2021-11-08] MEDS: FOLIC ACID 1 MG TAB PO SCH ×2 (08:11→19:47)
[2021-11-08] MEDS: guaiFENesin ER 600 MG TAB PO SCH ×2 (08:11→19:47)
[2021-11-08] MEDS: ENOXAPARIN 40MG/0.4ML SYRINGE (J1650 PER 10MG) SC SCH (08:11)
[2021-11-08] MEDS: CLOPIDOGREL 75 MG TAB PO SCH (08:12)
[2021-11-08] MEDS: PANTOPRAZOLE 40MG TAB (PROTONIX) PO SCH (08:12)
[2021-11-08] MEDS: predniSONE 10 MG TAB PO SCH (08:12)
[2021-11-08] MEDS: oxyBUTYnin *DITROPAN XL* 5 MG TABCR PO SCH ×2 (08:12→19:47)
[2021-11-08] MEDS: LISINOPRIL *2.5 MG* TAB PO SCH (08:13)
[2021-11-08] MEDS: FERROUS SULFATE 325MG TAB PO SCH (08:13)
[2021-11-08] MEDS: CARVedilol 3.125 MG TAB PO SCH ×2 (08:13→20:28)
[2021-11-08] MEDS: PREGABALIN 100 MG CAP (LYRICA) PO SCH ×2 (08:13→19:47)
[2021-11-08] MEDS ORDERED: MIRABEGRON 50 MG PO SCH (09:00)
[2021-11-08 14:00] VITALS: BP 124/60
[2021-11-08] MEDS: IPRATROPIUM 0.5MG/ALBUTEROL 2.5MG INH SOL UD 3ML (DUONEB) NEB SCH ×2 (14:17→19:04)
[2021-11-08 16:07] LABS: MYCOPLASMA PNEUMONIAE IgG 247 U/mL (0-99); MYCOPLASMA PNEUMONIAE IgM <770 U/mL (0-769)
[2021-11-08] MEDS: BENZONATATE 100MG CAPSULE PO SCH ×2 (16:30→19:47)
[2021-11-08 18:00] VITALS: BP 149/76
[2021-11-08] MEDS: SIMVASTATIN 20 MG TAB PO SCH (19:47)
[2021-11-08] MEDS: MONTELUKAST 10 MG TAB PO SCH (19:47)
[2021-11-08] MEDS: MIRTAZAPINE 15 MG TAB PO SCH (19:49)
[2021-11-08] MEDS: VITAMIN A & D OINTMENT 42.5GM TOP SCH (19:49)
[2021-11-08] MEDS: traZODone 100 MG TAB PO SCH (19:49)
[2021-11-08 20:21] VITALS: BP 110/83
[2021-11-09] MEDS: IPRATROPIUM 0.5MG/ALBUTEROL 2.5MG INH SOL UD 3ML (DUONEB) NEB SCH ×4 (01:20→19:19)
[2021-11-09 02:30] VITALS: BP 145/72
[2021-11-09 05:38] VITALS: BP 143/69
[2021-11-09 07:40] LABS: BASO % 0.2 % (0.0-1.0); EOS % 0.8 % (0.0-3.0); HEMATOCRIT 29.3 % (36.0-47.0); HEMOGLOBIN 10.4 g/dl (12.0-15.5); LYMPH # 1.3 10^3/uL (1.5-5.0); LYMPH % 27.9 % (24.0-44.0); MEAN CORPUSCULAR HEMOGLOBIN 32.5 pg (27.0-33.0); MEAN CORPUSCULAR HGB CONC 35.5 g/dl (32.0-36.5); MEAN CORPUSCULAR VOLUME 91.6 fl (80.0-96.0); MONO # 0.5 10^3/uL (0.0-0.8); MONO % 11.3 % (2.0-8.0); NEUTROPHILS # 2.8 10^3/uL (1.5-8.5); NEUTROPHILS % 58.3 % (36.0-66.0); WHITE BLOOD COUNT 4.8 10^3/uL (4.0-10.0)
[2021-11-09 08:01] LABS: ALBUMIN 2.3 GM/DL (3.2-5.2); ALT/SGPT 9 U/L (12-78); BILIRUBIN,TOTAL 0.4 MG/DL (0.2-1.0); BLOOD UREA NITROGEN 18 MG/DL (7-18); CALCIUM LEVEL 9.1 MG/DL (8.8-10.2); CARBON DIOXIDE LEVEL 21 MEQ/L (21-32); CHLORIDE LEVEL 106 MEQ/L (98-107); CREATININE FOR GFR 0.87 MG/DL (0.55-1.30); GLOMERULAR FILTRATION RATE > 60.0 (>39); GLUCOSE, FASTING 247 MG/DL (70-100); POTASSIUM SERUM 4.1 MEQ/L (3.5-5.1); SODIUM LEVEL 134 MEQ/L (136-145); TOTAL PROTEIN 6.1 GM/DL (6.4-8.2)
[2021-11-09] MEDS: TIOTROPIUM INHALER/CAPSULE (SPIRIVA) INH SCH (08:20)
[2021-11-09] MEDS: ADVAIR HFA 230/21MCG INHALER INH SCH ×2 (08:20→19:18)
[2021-11-09 08:27] LABS: PLATELET COUNT, AUTOMATED 100 10^3/uL (150-450)
[2021-11-09] MEDS: ENOXAPARIN 40MG/0.4ML SYRINGE (J1650 PER 10MG) SC SCH (09:57)
[2021-11-09] MEDS: HumaLOG INSULIN (NovoLOG) PER UNIT SC SCH ×4 (09:57→20:30)
[2021-11-09] MEDS: oxyCODONE 5MG TAB PO PRN ×2 (09:58→18:33)
[2021-11-09] MEDS: PREGABALIN 100 MG CAP (LYRICA) PO SCH ×2 (09:58→20:31)
[2021-11-09] MEDS: FOLIC ACID 1 MG TAB PO SCH ×2 (09:58→20:32)
[2021-11-09] MEDS: oxyBUTYnin *DITROPAN XL* 5 MG TABCR PO SCH ×2 (09:59→20:32)
[2021-11-09] MEDS: CLOPIDOGREL 75 MG TAB PO SCH (09:59)
[2021-11-09] MEDS: predniSONE 10 MG TAB PO SCH (09:59)
[2021-11-09] MEDS: PANTOPRAZOLE 40MG TAB (PROTONIX) PO SCH (09:59)
[2021-11-09] MEDS: FERROUS SULFATE 325MG TAB PO SCH (09:59)
[2021-11-09] MEDS: BENZONATATE 100MG CAPSULE PO SCH ×3 (09:59→20:31)
[2021-11-09] MEDS: guaiFENesin ER 600 MG TAB PO SCH ×2 (09:59→20:32)
[2021-11-09] MEDS: LISINOPRIL *2.5 MG* TAB PO SCH (10:00)
[2021-11-09] MEDS: CARVedilol 3.125 MG TAB PO SCH ×2 (10:00→20:32)
[2021-11-09] MEDS ORDERED: LEVEMIR (INSULIN DETEMIR) 1 UNITS/0.01ML SC SCH (12:30)
[2021-11-09] MEDS: LEVEMIR (INSULIN DETEMIR) 1 UNITS/0.01ML SC SCH (13:09)
[2021-11-09 18:18] VITALS: BP 136/61
[2021-11-09] MEDS: MONTELUKAST 10 MG TAB PO SCH (20:30)
[2021-11-09] MEDS: SIMVASTATIN 20 MG TAB PO SCH (20:30)
[2021-11-09] MEDS: traZODone 100 MG TAB PO SCH (20:31)
[2021-11-09] MEDS: MIRTAZAPINE 15 MG TAB PO SCH (20:32)
[2021-11-09 20:34] VITALS: BP 137/67
[2021-11-09] MEDS: VITAMIN A & D OINTMENT 42.5GM TOP SCH (20:35)
[2021-11-09] MEDS ORDERED: DOCUSATE SODIUM 100MG CAPSULE PO PRN (22:10)
[2021-11-09] MEDS ORDERED: CEPACOL LOZENGE PO PRN (22:10)
[2021-11-09] MEDS ORDERED: DEXTROMETHORPHAN 60MG/10ML SUSP 90ML BTL(DELSYM) PO PRN (22:10)
[2021-11-09 22:15] VITALS: BP 138/68
[2021-11-10] MEDS: IPRATROPIUM 0.5MG/ALBUTEROL 2.5MG INH SOL UD 3ML (DUONEB) NEB SCH ×3 (01:07→13:43)
[2021-11-10 02:15] VITALS: BP 138/69
[2021-11-10] MEDS: ACETAMINOPHEN TAB 650MG DOSE (2X325MG) PO PRN ×2 (03:12→15:14)
[2021-11-10 06:00] VITALS: BP 141/70
[2021-11-10 06:38] LABS: BASO % 0.4 % (0.0-1.0); EOS # 0.1 10^3/uL (0.0-0.5); EOS % 0.9 % (0.0-3.0); HEMATOCRIT 28.8 % (36.0-47.0); HEMOGLOBIN 10.2 g/dl (12.0-15.5); LYMPH # 1.7 10^3/uL (1.5-5.0); LYMPH % 31.7 % (24.0-44.0); MEAN CORPUSCULAR HEMOGLOBIN 32.9 pg (27.0-33.0); MEAN CORPUSCULAR HGB CONC 35.4 g/dl (32.0-36.5); MEAN CORPUSCULAR VOLUME 92.9 fl (80.0-96.0); MONO # 0.5 10^3/uL (0.0-0.8); MONO % 9.9 % (2.0-8.0); NEUTROPHILS # 2.9 10^3/uL (1.5-8.5); NEUTROPHILS % 54.9 % (36.0-66.0); PLATELET COUNT, AUTOMATED 149 10^3/uL (150-450); WHITE BLOOD COUNT 5.4 10^3/uL (4.0-10.0)
[2021-11-10 06:59] LABS: ALBUMIN 2.5 GM/DL (3.2-5.2); BILIRUBIN,TOTAL 0.7 MG/DL (0.2-1.0); CALCIUM LEVEL 8.8 MG/DL (8.8-10.2); CREATININE FOR GFR 1.09 MG/DL (0.55-1.30); GLOMERULAR FILTRATION RATE 52.1 (>39); POTASSIUM SERUM 4.2 MEQ/L (3.5-5.1); TOTAL PROTEIN 5.7 GM/DL (6.4-8.2)
[2021-11-10] MEDS: ADVAIR HFA 230/21MCG INHALER INH SCH (08:00)
[2021-11-10] MEDS: TIOTROPIUM INHALER/CAPSULE (SPIRIVA) INH SCH (08:00)
[2021-11-10] MEDS: HumaLOG INSULIN (NovoLOG) PER UNIT SC SCH ×2 (08:51→12:13)
[2021-11-10 08:52] VITALS: BP 141/70
[2021-11-10] MEDS: predniSONE 10 MG TAB PO SCH (08:52)
[2021-11-10] MEDS: LEVEMIR (INSULIN DETEMIR) 1 UNITS/0.01ML SC SCH (08:52)
[2021-11-10] MEDS: ENOXAPARIN 40MG/0.4ML SYRINGE (J1650 PER 10MG) SC SCH (08:52)
[2021-11-10] MEDS: LISINOPRIL *2.5 MG* TAB PO SCH (08:52)
[2021-11-10] MEDS: oxyBUTYnin *DITROPAN XL* 5 MG TABCR PO SCH (08:53)
[2021-11-10] MEDS: guaiFENesin ER 600 MG TAB PO SCH (08:53)
[2021-11-10] MEDS: PREGABALIN 100 MG CAP (LYRICA) PO SCH (08:53)
[2021-11-10] MEDS: FOLIC ACID 1 MG TAB PO SCH (08:53)
[2021-11-10] MEDS: PANTOPRAZOLE 40MG TAB (PROTONIX) PO SCH (08:53)
[2021-11-10] MEDS: FERROUS SULFATE 325MG TAB PO SCH (08:53)
[2021-11-10] MEDS: CLOPIDOGREL 75 MG TAB PO SCH (08:53)
[2021-11-10] MEDS: BENZONATATE 100MG CAPSULE PO SCH ×2 (08:53→15:14)
[2021-11-10] MEDS: CARVedilol 3.125 MG TAB PO SCH (08:54)
[2021-11-10 10:03] VITALS: BP 140/69
[2021-11-10] MEDS ORDERED: DELS30LI8 PO (10:51)
[2021-11-10] MEDS ORDERED: SORE15LO PO (10:51)
[2021-11-10] MEDS ORDERED: BENZ-18 PO (10:51)
[2021-11-10] MEDS ORDERED: MUCI600T31 PO (10:51)
[2021-11-10 14:00] VITALS: BP 141/68
[2021-11-11 14:09] LABS: CHLAMYDIA PNEUMONIAE IgM <1:10 (Neg:<1:10)
== END 2021-11-10 15:58 | disposition home health service (06) | DRG 194 ==
LOC: M ED 15:55 → EDBD 15:55 → M ED INP 11-07 00:02 → ENRESERV 11-07 00:48 → M MSPAV 11-07 01:50
PROVIDERS: ADMIT Family Medicine; ATTEND Internal Medicine
DX: J12.2 Parainfluenza virus pneumonia (principal); D61.818 Other pancytopenia; J44.0 Chronic obstructive pulmonary disease with (acute) lower respiratory infection; K21.9 Gastro-esophageal reflux disease without esophagitis; N18.32 Chronic kidney disease, stage 3b; E11.22 Type 2 diabetes mellitus with diabetic chronic kidney disease; G43.909 Migraine, unspecified, not intractable, without status migrainosus; E78.5 Hyperlipidemia, unspecified; I12.9 Hypertensive chronic kidney disease with stage 1 through stage 4 chronic kidney disease, or unspecified chronic kidney disease; F32.A Depression, unspecified; F41.9 Anxiety disorder, unspecified; M81.0 Age-related osteoporosis without current pathological fracture; M54.9 Dorsalgia, unspecified; R33.9 Retention of urine, unspecified; Z90.49 Acquired absence of other specified parts of digestive tract; Z96.642 Presence of left artificial hip joint; Z87.891 Personal history of nicotine dependence; E11.65 Type 2 diabetes mellitus with hyperglycemia; Z79.84 Long term (current) use of oral hypoglycemic drugs; Z79.899 Other long term (current) drug therapy; Z88.0 Allergy status to penicillin; Z88.1 Allergy status to other antibiotic agents; Z88.2 Allergy status to sulfonamides; Z88.5 Allergy status to narcotic agent; Z88.6 Allergy status to analgesic agent; Z88.8 Allergy status to other drugs, medicaments and biological substances; R53.1 Weakness

== ENCOUNTER → 2021-11-20 | Outpatient (CLI) | payer MEDICARE, MEDICAID ==
[~2021-11-20] MED LIST changes: +BENZ-18 PO; +DELS30LI8 PO; +FLUT1BLS6; +MUCI600T31 PO; +SORE15LO PO
== END ==
LOC: M ADAMS 13:56
PROVIDERS: ATTEND Family Medicine
DX: M79.604 Pain in right leg (principal); M25.512 Pain in left shoulder

== ENCOUNTER → 2021-12-16 | Outpatient (REF) | payer MEDICARE, MEDICAID ==
[~2021-12-16] MED LIST changes: +BACL5TAB2 PO
[2021-12-17 13:29] LABS: HEMOGLOBIN A1c 5.3 %
[2021-12-17 13:30] LABS: HEMATOCRIT 34.9 % (36.0-47.0); HEMOGLOBIN 11.9 g/dl (12.0-15.5); MEAN CORPUSCULAR HEMOGLOBIN 29.4 pg (27.0-33.0); MEAN CORPUSCULAR HGB CONC 34.1 g/dl (32.0-36.5); MEAN CORPUSCULAR VOLUME 86.2 fl (80.0-96.0); PLATELET COUNT, AUTOMATED 149 10^3/uL (150-450); RED BLOOD COUNT 4.05 10^6/uL (4.00-5.40); WHITE BLOOD COUNT 5.3 10^3/uL (4.0-10.0)
[2021-12-17 13:53] LABS: ALBUMIN 3.3 GM/DL (3.2-5.2); BILIRUBIN,TOTAL 0.6 MG/DL (0.2-1.0); CREATININE FOR GFR 1.02 MG/DL (0.55-1.30); FREE T4 1.23 NG/DL (0.76-1.46); GLOMERULAR FILTRATION RATE 56.2 (>39); POTASSIUM SERUM 4.8 MEQ/L (3.5-5.1); THYROID STIMULATING HORMONE 1.4 uIU/ML (0.358-3.740)
== END ==
LOC: M SFHCADAM 15:25
PROVIDERS: ATTEND Physician Assistant
DX: M54.16 Radiculopathy, lumbar region (principal); K76.0 Fatty (change of) liver, not elsewhere classified; I11.9 Hypertensive heart disease without heart failure; Z79.899 Other long term (current) drug therapy

== ENCOUNTER 2021-12-26 10:11 | Inpatient (IN) | payer MEDICARE, MEDICAID ==
[~2021-12-26] VITALS: Ht 175.3 cm; Wt 69.1 kg
[~2021-12-26 10:11] MED LIST changes: -BACL5TAB2 PO
[2021-12-26] MEDS ORDERED: NS 500 ML IV ONE (10:25)
[2021-12-26 11:30] LABS: BASO % 0.2 % (0.0-1.0); EOS # 0.1 10^3/uL (0.0-0.5); EOS % 1.6 % (0.0-3.0); HEMATOCRIT 38.6 % (36.0-47.0); HEMOGLOBIN 14.2 g/dl (12.0-15.5); LYMPH # 2.3 10^3/uL (1.5-5.0); LYMPH % 52.8 % (24.0-44.0); MEAN CORPUSCULAR HEMOGLOBIN 30.2 pg (27.0-33.0); MEAN CORPUSCULAR VOLUME 82.1 fl (80.0-96.0); MONO # 0.8 10^3/uL (0.0-0.8); NEUTROPHILS # 1.2 10^3/uL (1.5-8.5); NEUTROPHILS % 27.4 % (36.0-66.0); PLATELET COUNT, AUTOMATED 205 10^3/uL (150-450); WHITE BLOOD COUNT 4.4 10^3/uL (4.0-10.0)
[2021-12-26] MEDS ORDERED: LIDOCAINE 2% 5ML JELLY UROJET TOP ONE (11:30)
[2021-12-26 11:36] LABS: MEAN CORPUSCULAR HGB CONC 36.8 g/dl (32.0-36.5)
[2021-12-26] MEDS ORDERED: BACL5TAB2 PO (11:48)
[2021-12-26] MEDS ORDERED: HOME MED LIST COMPLETE! XX SCH (11:50)
[2021-12-26 12:07] LABS: CK-MB VALUE MASS 2.5 NG/ML (<3.6); MB/CK RELATIVE INDEX 6.1 (< OR =4)
[2021-12-26 12:09] LABS: ACETAMINOPHEN LEVEL < 2.0 UG/ML (10.0-30.0); ALBUMIN 3.6 GM/DL (3.2-5.2); ALT/SGPT 16 U/L (12-78); BILIRUBIN,DIRECT 0.9 MG/DL (0.0-0.2); BILIRUBIN,TOTAL 1.6 MG/DL (0.2-1.0); BLOOD UREA NITROGEN 17 MG/DL (7-18); CALCIUM LEVEL 9.6 MG/DL (8.8-10.2); CARBON DIOXIDE LEVEL 22 MEQ/L (21-32); CHLORIDE LEVEL 88 MEQ/L (98-107); CREATININE FOR GFR 1.16 MG/DL (0.55-1.30); ETHYL ALCOHOL (ETHANOL) < 0.003 % (0.000-0.010); GLOMERULAR FILTRATION RATE 48.5 (>39); GLUCOSE, FASTING 129 MG/DL (70-100); POTASSIUM SERUM 4.7 MEQ/L (3.5-5.1); SODIUM LEVEL 123 MEQ/L (136-145); TOTAL PROTEIN 7.6 GM/DL (6.4-8.2)
[2021-12-26 12:50] LABS: AMPHETAMINES LEVEL URINE NEGATIVE (NEGATIVE); BARBITURATES URINE NEGATIVE (NEGATIVE); BENZODIAZEPINES URINE NEGATIVE (NEGATIVE); CANNABINOIDS URINE NEGATIVE (NEGATIVE); COCAINE METABOLITE URINE NEGATIVE (NEGATIVE); METHADONE URINE NEGATIVE (NEGATIVE); OPIATES URINE NEGATIVE (NEGATIVE); PHENCYCLIDINE URINE NEGATIVE (NEGATIVE)
[2021-12-26 12:54] LABS: CK-MB VALUE MASS 2.3 NG/ML (<3.6); MB/CK RELATIVE INDEX 5.35 (< OR =4)
[2021-12-26 12:55] LABS: RSV AMPLIFICATION NEGATIVE (NEGATIVE)
[2021-12-26] MEDS ORDERED: cefTRIAXone SOD 2 GM in D5W MINI-BAG PLUS 50 ML IV ONE (13:20)
[2021-12-26] MEDS ORDERED: NS 1,000 ML IV ONE (13:35)
[2021-12-26] MEDS ORDERED: hydrALAZINE 20MG/ML 1ML VIAL (J0360 PER 20MG) IV PRN (14:55)
[2021-12-26 15:50] LABS: CALCIUM LEVEL 9.2 MG/DL (8.8-10.2); CREATININE FOR GFR 0.97 MG/DL (0.55-1.30); GLOMERULAR FILTRATION RATE 59.6 (>39); POTASSIUM SERUM 4.4 MEQ/L (3.5-5.1)
[2021-12-26] MEDS ORDERED: OLANZapine INTRAMUSCULAR 10MG VIAL IM STA (16:46)
[2021-12-26] MEDS ORDERED: LORazepam 2 MG/ML VIAL IM STA (17:31)
[2021-12-26] MEDS ORDERED: LORazepam 2 MG/ML VIAL IM ONE (19:10)
[2021-12-26] MEDS: SYMBICORT 160/4.5MCG INHALER 6GM INH SCH (19:55)
[2021-12-26 22:16] VITALS: BP 107/61
[2021-12-26 22:50] LABS: CREATININE FOR GFR 0.99 MG/DL (0.55-1.30); GLOMERULAR FILTRATION RATE 58.2 (>39); POTASSIUM SERUM 4.9 MEQ/L (3.5-5.1)
[2021-12-27] VITALS (7 sets, daily range): BP systolic 106–186; BP diastolic 55–84
[2021-12-27] MEDS ORDERED: NS 1,000 ML IV SCH (02:10)
[2021-12-27] MEDS: OLANZapine INTRAMUSCULAR 10MG VIAL IM PRN ×2 (02:26→21:01)
[2021-12-27 02:41] LABS: BLOOD UREA NITROGEN 15 MG/DL (7-18); CALCIUM LEVEL 9.3 MG/DL (8.8-10.2); CARBON DIOXIDE LEVEL 23 MEQ/L (21-32); CHLORIDE LEVEL 99 MEQ/L (98-107); CREATININE FOR GFR 0.94 MG/DL (0.55-1.30); GLOMERULAR FILTRATION RATE > 60.0 (>39); GLUCOSE, FASTING 120 MG/DL (70-100); POTASSIUM SERUM 4.2 MEQ/L (3.5-5.1); SODIUM LEVEL 132 MEQ/L (136-145)
[2021-12-27 07:20] LABS: HEMATOCRIT 37.3 % (36.0-47.0); HEMOGLOBIN 13.5 g/dl (12.0-15.5); MEAN CORPUSCULAR HEMOGLOBIN 30.3 pg (27.0-33.0); MEAN CORPUSCULAR HGB CONC 36.2 g/dl (32.0-36.5); MEAN CORPUSCULAR VOLUME 83.8 fl (80.0-96.0); PLATELET COUNT, AUTOMATED 173 10^3/uL (150-450); RED BLOOD COUNT 4.45 10^6/uL (4.00-5.40); WHITE BLOOD COUNT 4.7 10^3/uL (4.0-10.0)
[2021-12-27 07:39] LABS: BLOOD UREA NITROGEN 14 MG/DL (7-18); CALCIUM LEVEL 9.2 MG/DL (8.8-10.2); CARBON DIOXIDE LEVEL 23 MEQ/L (21-32); CHLORIDE LEVEL 99 MEQ/L (98-107); GLOMERULAR FILTRATION RATE > 60.0 (>39); GLUCOSE, FASTING 157 MG/DL (70-100); POTASSIUM SERUM 4.2 MEQ/L (3.5-5.1); SODIUM LEVEL 134 MEQ/L (136-145)
[2021-12-27] MEDS: SYMBICORT 160/4.5MCG INHALER 6GM INH SCH ×2 (08:16→19:22)
[2021-12-27] MEDS ORDERED: LORazepam 2 MG/ML VIAL As Ordered ONE ×2 (09:47→15:05)
[2021-12-27] MEDS: LORazepam 2 MG/ML VIAL IV PRN ×3 (09:51→20:23)
[2021-12-27] MEDS ORDERED: diphenhydrAMINE 50MG/ML VIAL (J1200) IV STA (10:17)
[2021-12-27 10:49] LABS: CALCIUM LEVEL 9.3 MG/DL (8.8-10.2); CREATININE FOR GFR 1.02 MG/DL (0.55-1.30); GLOMERULAR FILTRATION RATE 56.2 (>39); POTASSIUM SERUM 4.2 MEQ/L (3.5-5.1)
[2021-12-27] MEDS: PREGABALIN 50 MG CAP (LYRICA) PO SCH ×2 (11:51→20:20)
[2021-12-27] MEDS: LISINOPRIL *2.5 MG* TAB PO SCH (11:51)
[2021-12-27] MEDS: CARVedilol 3.125 MG TAB PO SCH ×2 (11:52→20:22)
[2021-12-27] MEDS ORDERED: CARVedilol 3.125 MG TAB PO ONE (13:15)
[2021-12-27] MEDS ORDERED: diphenhydrAMINE 50MG/ML VIAL (J1200) IV ONE (13:40)
[2021-12-27] MEDS ORDERED: cefTRIAXone SOD 1 GM in D5W MINI-BAG PLUS 50 ML IV SCH (15:00)
[2021-12-27] MEDS: D5W/0.45% SODIUM CHLORIDE 1,000 ML IV SCH (15:13)
[2021-12-27 15:16] LABS: CALCIUM LEVEL 8.6 MG/DL (8.8-10.2); GLOMERULAR FILTRATION RATE 57.5 (>39); POTASSIUM SERUM 4.1 MEQ/L (3.5-5.1)
[2021-12-27] MEDS: MIRTAZAPINE 15 MG TAB PO SCH (20:20)
[2021-12-28] MEDS: D5W/0.45% SODIUM CHLORIDE 1,000 ML IV SCH ×2 (01:34→10:56)
[2021-12-28 04:07] VITALS: BP 139/61
[2021-12-28 06:02] LABS: HEMATOCRIT 37.7 % (36.0-47.0); HEMOGLOBIN 12.9 g/dl (12.0-15.5); MEAN CORPUSCULAR HEMOGLOBIN 28.7 pg (27.0-33.0); MEAN CORPUSCULAR HGB CONC 34.2 g/dl (32.0-36.5); MEAN CORPUSCULAR VOLUME 83.8 fl (80.0-96.0); PLATELET COUNT, AUTOMATED 146 10^3/uL (150-450); WHITE BLOOD COUNT 4.5 10^3/uL (4.0-10.0)
[2021-12-28 06:38] LABS: BLOOD UREA NITROGEN 8 MG/DL (7-18); CALCIUM LEVEL 9.2 MG/DL (8.8-10.2); CARBON DIOXIDE LEVEL 25 MEQ/L (21-32); CHLORIDE LEVEL 105 MEQ/L (98-107); CREATININE FOR GFR 0.82 MG/DL (0.55-1.30); GLOMERULAR FILTRATION RATE > 60.0 (>39); GLUCOSE, FASTING 153 MG/DL (70-100); POTASSIUM SERUM 3.9 MEQ/L (3.5-5.1); SODIUM LEVEL 137 MEQ/L (136-145)
[2021-12-28] MEDS: SYMBICORT 160/4.5MCG INHALER 6GM INH SCH ×2 (07:30→20:00)
[2021-12-28 08:00] VITALS: BP 141/71
[2021-12-28] MEDS ORDERED: LORazepam 2 MG/ML VIAL As Ordered ONE (08:28)
[2021-12-28] MEDS: LORazepam 2 MG/ML VIAL IV PRN (08:34)
[2021-12-28] MEDS: LISINOPRIL *2.5 MG* TAB PO SCH (08:47)
[2021-12-28] MEDS: PREGABALIN 50 MG CAP (LYRICA) PO SCH ×2 (08:47→21:00)
[2021-12-28] MEDS: CARVedilol 3.125 MG TAB PO SCH ×2 (08:48→21:00)
[2021-12-28] MEDS: OLANZapine INTRAMUSCULAR 10MG VIAL IM PRN ×2 (09:33→20:34)
[2021-12-28] MEDS ORDERED: diphenhydrAMINE 50MG/ML VIAL (J1200) As Ordered ONE (10:29)
[2021-12-28] MEDS ORDERED: diphenhydrAMINE 50MG/ML VIAL (J1200) IV ONE (10:30)
[2021-12-28] MEDS: CEFDINIR 300 MG CAP (OMNICEF) PO SCH ×2 (11:22→21:00)
[2021-12-28] MEDS: oxyCODONE 5MG TAB PO PRN (11:23)
[2021-12-28 12:00] VITALS: BP 148/86
[2021-12-28] MEDS: IPRATROPIUM 0.5MG/ALBUTEROL 2.5MG INH SOL UD 3ML (DUONEB) NEB PRN (15:57)
[2021-12-28 16:00] VITALS: BP 127/62
[2021-12-28 19:38] VITALS: BP 127/61
[2021-12-28] MEDS: LORazepam 2 MG/ML VIAL IM PRN (20:01)
[2021-12-28] MEDS ORDERED: diphenhydrAMINE 50MG/ML VIAL (J1200) IM ONE (21:00)
[2021-12-28] MEDS ORDERED: OLANZapine INTRAMUSCULAR 10MG VIAL IM ONE (21:00)
[2021-12-28] MEDS: MIRTAZAPINE 15 MG TAB PO SCH (21:00)
[2021-12-28] MEDS: QUEtiapine FUMARATE 25 MG TAB PO SCH (21:00)
[2021-12-28 23:46] VITALS: BP 148/66
[2021-12-29 03:32] VITALS: BP 123/58
[2021-12-29 07:19] LABS: HEMATOCRIT 33.6 % (36.0-47.0); HEMOGLOBIN 11.3 g/dl (12.0-15.5); MEAN CORPUSCULAR HEMOGLOBIN 28.6 pg (27.0-33.0); MEAN CORPUSCULAR HGB CONC 33.6 g/dl (32.0-36.5); MEAN CORPUSCULAR VOLUME 85.1 fl (80.0-96.0); PLATELET COUNT, AUTOMATED 112 10^3/uL (150-450); RED BLOOD COUNT 3.95 10^6/uL (4.00-5.40); WHITE BLOOD COUNT 2.9 10^3/uL (4.0-10.0)
[2021-12-29] MEDS: oxyCODONE 5MG TAB PO PRN ×2 (07:36→20:55)
[2021-12-29 07:40] VITALS: BP 168/86
[2021-12-29 07:45] LABS: BLOOD UREA NITROGEN 9 MG/DL (7-18); CALCIUM LEVEL 8.7 MG/DL (8.8-10.2); CARBON DIOXIDE LEVEL 28 MEQ/L (21-32); CHLORIDE LEVEL 106 MEQ/L (98-107); CREATININE FOR GFR 0.74 MG/DL (0.55-1.30); GLOMERULAR FILTRATION RATE > 60.0 (>39); GLUCOSE, FASTING 140 MG/DL (70-100); POTASSIUM SERUM 3.9 MEQ/L (3.5-5.1); SODIUM LEVEL 140 MEQ/L (136-145)
[2021-12-29] MEDS: SYMBICORT 160/4.5MCG INHALER 6GM INH SCH ×2 (07:50→20:17)
[2021-12-29] MEDS: LISINOPRIL *2.5 MG* TAB PO SCH (08:06)
[2021-12-29] MEDS: CARVedilol 3.125 MG TAB PO SCH ×2 (08:06→20:55)
[2021-12-29] MEDS: PREGABALIN 50 MG CAP (LYRICA) PO SCH ×2 (08:06→20:55)
[2021-12-29] MEDS ORDERED: LIDOCAINE 1% MDV 20ML VIAL As Ordered ONE (11:33)
[2021-12-29 12:36] VITALS: BP 153/76
[2021-12-29] MEDS ORDERED: VANCOMYCIN HCL 1,000 MG in IV FLUID PLACE HOLDER 1 EA IV SCH (12:45)
[2021-12-29] MEDS: CEFEPIME HCL 2 GM in D5W MINI-BAG PLUS 50 ML IV SCH (13:27)
[2021-12-29] MEDS: VANCOMYCIN HCL 750 MG, VIAL MATE ADAPTER 1 EACH in NS 250 ML IV SCH (14:28)
[2021-12-29] MEDS: diphenhydrAMINE 50MG/ML VIAL (J1200) IM PRN (15:09)
[2021-12-29] MEDS: OLANZapine INTRAMUSCULAR 10MG VIAL IM PRN (15:50)
[2021-12-29] MEDS ORDERED: VANCOMYCIN HCL 750 MG, VIAL MATE ADAPTER 1 EACH in NS 250 ML IV ONE (16:00)
[2021-12-29 16:05] VITALS: BP 148/75
[2021-12-29] MEDS: SODIUM CHLORIDE 0.9% INJ 10 ML SYR IV SCH (17:50)
[2021-12-29] MEDS: IPRATROPIUM 0.5MG/ALBUTEROL 2.5MG INH SOL UD 3ML (DUONEB) NEB PRN (18:11)
[2021-12-29 20:00] VITALS: BP 157/78
[2021-12-29] MEDS: MIRTAZAPINE 15 MG TAB PO SCH (20:54)
[2021-12-29] MEDS: QUEtiapine FUMARATE 25 MG TAB PO SCH (20:55)
[2021-12-29] MEDS: CEPACOL LOZENGE PO PRN (22:26)
[2021-12-29] MEDS: LORazepam 2 MG/ML VIAL IM PRN (22:49)
[2021-12-30] VITALS: BP 167/79
[2021-12-30] MEDS: CEFEPIME HCL 2 GM in D5W MINI-BAG PLUS 50 ML IV SCH (00:19)
[2021-12-30] MEDS: OLANZapine INTRAMUSCULAR 10MG VIAL IM PRN ×2 (00:23→21:23)
[2021-12-30] MEDS: VANCOMYCIN HCL 750 MG, VIAL MATE ADAPTER 1 EACH in NS 250 ML IV SCH (03:30)
[2021-12-30 04:00] VITALS: BP 144/76
[2021-12-30] MEDS: SODIUM CHLORIDE 0.9% INJ 10 ML SYR IV SCH ×2 (05:33→17:34)
[2021-12-30 05:48] LABS: HEMATOCRIT 29.2 % (36.0-47.0); HEMOGLOBIN 9.9 g/dl (12.0-15.5); MEAN CORPUSCULAR HEMOGLOBIN 29.6 pg (27.0-33.0); MEAN CORPUSCULAR HGB CONC 33.9 g/dl (32.0-36.5); MEAN CORPUSCULAR VOLUME 87.2 fl (80.0-96.0); PLATELET COUNT, AUTOMATED 102 10^3/uL (150-450); RED BLOOD COUNT 3.35 10^6/uL (4.00-5.40); WHITE BLOOD COUNT 2.1 10^3/uL (4.0-10.0)
[2021-12-30 06:06] LABS: BLOOD UREA NITROGEN 9 MG/DL (7-18); CALCIUM LEVEL 8.1 MG/DL (8.8-10.2); CARBON DIOXIDE LEVEL 29 MEQ/L (21-32); CHLORIDE LEVEL 105 MEQ/L (98-107); CREATININE FOR GFR 0.84 MG/DL (0.55-1.30); GLOMERULAR FILTRATION RATE > 60.0 (>39); GLUCOSE, FASTING 142 MG/DL (70-100); POTASSIUM SERUM 4.2 MEQ/L (3.5-5.1); SODIUM LEVEL 140 MEQ/L (136-145)
[2021-12-30] MEDS ORDERED: GLUCOSE 4GM CHEW TABLET PO PRN (07:25)
[2021-12-30] MEDS ORDERED: GLUCAGON INJ 1MG VIAL SC PRN (07:25)
[2021-12-30] MEDS ORDERED: DEXTROSE 50% 50 ML SYRINGE IV PRN (07:25)
[2021-12-30] MEDS: PREGABALIN 50 MG CAP (LYRICA) PO SCH ×2 (08:10→19:56)
[2021-12-30] MEDS: INSULIN LISPRO (NovoLOG) PER UNIT SC SCH ×4 (08:10→20:37)
[2021-12-30] MEDS: LISINOPRIL *2.5 MG* TAB PO SCH (08:16)
[2021-12-30] MEDS: CARVedilol 3.125 MG TAB PO SCH ×2 (08:16→20:02)
[2021-12-30 08:17] VITALS: BP 145/69
[2021-12-30 08:47] LABS: HEMOGLOBIN A1c 5.5 %
[2021-12-30] MEDS ORDERED: diphenhydrAMINE 25MG CAP PO PRN (11:10)
[2021-12-30] MEDS: LevoFLOXacin 750 MG TABLET PO SCH (11:33)
[2021-12-30] MEDS: oxyCODONE 5MG TAB PO PRN (12:09)
[2021-12-30 16:13] VITALS: BP 132/62
[2021-12-30] MEDS: SODIUM CHLORIDE 0.9% INJ 10 ML SYR IV PRN (17:34)
[2021-12-30 19:00] VITALS: BP 160/80
[2021-12-30] MEDS: MIRTAZAPINE 15 MG TAB PO SCH (19:56)
[2021-12-30] MEDS: QUEtiapine FUMARATE 25 MG TAB PO SCH (19:57)
[2021-12-30] MEDS: SYMBICORT 160/4.5MCG INHALER 6GM INH SCH (20:05)
[2021-12-30 22:00] VITALS: BP 166/92
[2021-12-31] VITALS (20 sets, daily range): BP systolic 60–158; BP diastolic 30–70
[2021-12-31] MEDS: oxyCODONE 5MG TAB PO PRN ×2 (00:12→20:13)
[2021-12-31] MEDS: SODIUM CHLORIDE 0.9% INJ 10 ML SYR IV SCH ×2 (05:11→18:03)
[2021-12-31] MEDS: LevoFLOXacin 750 MG TABLET PO SCH (05:12)
[2021-12-31] MEDS ORDERED: NS 500 ML IV ONE ×2 (06:05→07:00)
[2021-12-31 06:24] LABS: HEMATOCRIT 36.1 % (36.0-47.0); MEAN CORPUSCULAR HEMOGLOBIN 30.5 pg (27.0-33.0); MEAN CORPUSCULAR HGB CONC 34.3 g/dl (32.0-36.5); MEAN CORPUSCULAR VOLUME 88.7 fl (80.0-96.0); PLATELET COUNT, AUTOMATED 129 10^3/uL (150-450); RED BLOOD COUNT 4.07 10^6/uL (4.00-5.40); WHITE BLOOD COUNT 5.3 10^3/uL (4.0-10.0)
[2021-12-31 06:25] LABS: HEMOGLOBIN 12.4 g/dl (12.0-15.5)
[2021-12-31 06:55] LABS: CREATININE FOR GFR 1.31 MG/DL (0.55-1.30)
[2021-12-31 06:56] LABS: ALBUMIN 3.1 GM/DL (3.2-5.2); BILIRUBIN,DIRECT 0.2 MG/DL (0.0-0.2); BILIRUBIN,TOTAL 0.6 MG/DL (0.2-1.0); CALCIUM LEVEL 9.5 MG/DL (8.8-10.2); GLOMERULAR FILTRATION RATE 42.1 (>39); POTASSIUM SERUM 4.8 MEQ/L (3.5-5.1); TOTAL PROTEIN 6.6 GM/DL (6.4-8.2)
[2021-12-31] MEDS: INSULIN LISPRO (NovoLOG) PER UNIT SC SCH ×4 (07:30→20:46)
[2021-12-31] MEDS: SYMBICORT 160/4.5MCG INHALER 6GM INH SCH ×2 (07:33→19:10)
[2021-12-31] MEDS ORDERED: NS 1,000 ML IV ONE (07:35)
[2021-12-31] MEDS ORDERED: VANCOMYCIN HCL 1,000 MG, VIAL MATE ADAPTER 1 EACH in NS 250 ML IV SCH (07:40)
[2021-12-31] MEDS ORDERED: LACTULOSE 20 GM/30 ML SYRUP UD PR ONE (07:40)
[2021-12-31 07:59] LABS: ABG BASE EXCESS 0.7 (-2.0-2.0); ABG HCO3 24.2 MEQ/L (22.0-26.0); ABG O2 SATURATION 94.2 % (95.0-99.0); ABG PARTIAL PRESSURE CO2 34.9 mmHg (35.0-45.0); ABG PARTIAL PRESSURE O2 72.5 mmHg (75.0-100.0); ABG TOTAL CO2 25.3 MEQ/L (23.0-31.0); ABG pH (ARTERIAL) 7.459 UNITS (7.350-7.450)
[2021-12-31 08:29] LABS: C REACTIVE PROTEIN QUANTITATIV 2.4 MG/DL (0.00-0.30); VANCOMYCIN RANDOM 11.8 UG/ML
[2021-12-31] MEDS: MIDODRINE 5 MG TAB PO SCH ×3 (09:05→16:21)
[2021-12-31] MEDS: NS 1,000 ML IV SCH ×3 (09:06→22:05)
[2021-12-31] MEDS: CEFEPIME HCL 2 GM in D5W MINI-BAG PLUS 50 ML IV SCH ×2 (09:07→20:11)
[2021-12-31] MEDS ORDERED: LACTULOSE 20 GM/30 ML SYRUP UD PO STA (09:49)
[2021-12-31 10:05] LABS: CALCIUM LEVEL 8.2 MG/DL (8.8-10.2); CREATININE FOR GFR 1.22 MG/DL (0.55-1.30); GLOMERULAR FILTRATION RATE 45.7 (>39); POTASSIUM SERUM 4.3 MEQ/L (3.5-5.1)
[2021-12-31 10:10] LABS: CK-MB VALUE MASS 1.6 NG/ML (<3.6); MB/CK RELATIVE INDEX 1.95 (< OR =4)
[2021-12-31 10:30] LABS: ERYTHROCYTE SEDIMENTATION RATE 35 mm/hr (0-30)
[2021-12-31] MEDS: VANCOMYCIN HCL 750 MG, VIAL MATE ADAPTER 1 EACH in NS 250 ML IV SCH (10:49)
[2021-12-31] MEDS: VANCOMYCIN HCL 500 MG in D5W MINI-BAG PLUS 100 ML IV SCH (12:20)
[2021-12-31] MEDS: SODIUM CHLORIDE 0.9% INJ 10 ML SYR IV PRN (14:10)
[2021-12-31] MEDS: QUEtiapine FUMARATE 25 MG TAB PO SCH (20:13)
[2021-12-31] MEDS: MIRTAZAPINE 15 MG TAB PO SCH (20:13)
[2021-12-31] MEDS: guaiFENesin ER 600 MG TAB PO SCH (20:13)
[2022-01-01] VITALS (7 sets, daily range): BP systolic 110–172; BP diastolic 50–80
[2022-01-01] MEDS: diphenhydrAMINE 50MG/ML VIAL (J1200) IM PRN (00:57)
[2022-01-01] MEDS: SODIUM CHLORIDE 0.9% INJ 10 ML SYR IV SCH ×2 (04:56→17:42)
[2022-01-01 06:09] LABS: HEMATOCRIT 28.5 % (36.0-47.0); MEAN CORPUSCULAR HEMOGLOBIN 28.8 pg (27.0-33.0); MEAN CORPUSCULAR HGB CONC 32.6 g/dl (32.0-36.5); MEAN CORPUSCULAR VOLUME 88.2 fl (80.0-96.0); RED BLOOD COUNT 3.23 10^6/uL (4.00-5.40); WHITE BLOOD COUNT 2.5 10^3/uL (4.0-10.0)
[2022-01-01 06:37] LABS: BLOOD UREA NITROGEN 9 MG/DL (7-18); CARBON DIOXIDE LEVEL 23 MEQ/L (21-32); CHLORIDE LEVEL 111 MEQ/L (98-107); CREATININE FOR GFR 0.82 MG/DL (0.55-1.30); GLOMERULAR FILTRATION RATE > 60.0 (>39); GLUCOSE, FASTING 222 MG/DL (70-100); POTASSIUM SERUM 3.8 MEQ/L (3.5-5.1); SODIUM LEVEL 142 MEQ/L (136-145)
[2022-01-01 06:48] LABS: HEMOGLOBIN 9.3 g/dl (12.0-15.5); PLATELET COUNT, AUTOMATED 69 10^3/uL (150-450)
[2022-01-01] MEDS: SYMBICORT 160/4.5MCG INHALER 6GM INH SCH ×2 (07:25→19:17)
[2022-01-01] MEDS: NS 1,000 ML IV SCH (08:00)
[2022-01-01] MEDS: INSULIN LISPRO (NovoLOG) PER UNIT SC SCH ×4 (08:15→20:54)
[2022-01-01] MEDS: MIDODRINE 5 MG TAB PO SCH ×3 (08:19→16:00)
[2022-01-01] MEDS: guaiFENesin ER 600 MG TAB PO SCH ×2 (08:19→20:43)
[2022-01-01] MEDS: CEFEPIME HCL 2 GM in D5W MINI-BAG PLUS 50 ML IV SCH ×2 (08:19→20:43)
[2022-01-01] MEDS: VANCOMYCIN HCL 750 MG, VIAL MATE ADAPTER 1 EACH in NS 250 ML IV SCH (09:21)
[2022-01-01] MEDS: VANCOMYCIN HCL 500 MG in D5W MINI-BAG PLUS 100 ML IV SCH (11:42)
[2022-01-01] MEDS: SODIUM CHLORIDE 0.9% INJ 10 ML SYR IV PRN ×2 (11:43→21:45)
[2022-01-01] MEDS: oxyCODONE 5MG TAB PO PRN (12:42)
[2022-01-01] MEDS: QUEtiapine FUMARATE 25 MG TAB PO SCH (20:43)
[2022-01-01] MEDS: MIRTAZAPINE 15 MG TAB PO SCH (20:43)
[2022-01-01] MEDS: traZODone 100 MG TAB PO PRN (21:44)
[2022-01-01] MEDS: KETOROLAC 30 MG/ML 1ML VIAL IV PRN (21:45)
[2022-01-02] MEDS: oxyCODONE 5MG TAB PO PRN ×3 (01:42→22:41)
[2022-01-02] MEDS: ONDANSETRON 4MG 2ML VIAL IV PRN ×3 (01:42→20:26)
[2022-01-02] MEDS: SODIUM CHLORIDE 0.9% INJ 10 ML SYR IV PRN ×2 (01:42→10:15)
[2022-01-02 02:00] VITALS: BP 150/62
[2022-01-02] MEDS: SODIUM CHLORIDE 0.9% INJ 10 ML SYR IV SCH ×2 (05:46→19:36)
[2022-01-02 06:00] VITALS: BP 160/72
[2022-01-02] MEDS: MIDODRINE 5 MG TAB PO SCH ×3 (08:00→16:00)
[2022-01-02] MEDS: SYMBICORT 160/4.5MCG INHALER 6GM INH SCH ×2 (08:03→19:52)
[2022-01-02 09:31] LABS: HEMATOCRIT 33.1 % (36.0-47.0); MEAN CORPUSCULAR HEMOGLOBIN 29.4 pg (27.0-33.0); MEAN CORPUSCULAR HGB CONC 33.2 g/dl (32.0-36.5); MEAN CORPUSCULAR VOLUME 88.5 fl (80.0-96.0); RED BLOOD COUNT 3.74 10^6/uL (4.00-5.40); WHITE BLOOD COUNT 2.3 10^3/uL (4.0-10.0)
[2022-01-02 09:32] LABS: PLATELET COUNT, AUTOMATED 84 10^3/uL (150-450)
[2022-01-02 10:10] LABS: BLOOD UREA NITROGEN 8 MG/DL (7-18); CALCIUM LEVEL 8.6 MG/DL (8.8-10.2); CARBON DIOXIDE LEVEL 26 MEQ/L (21-32); CHLORIDE LEVEL 107 MEQ/L (98-107); CREATININE FOR GFR 0.82 MG/DL (0.55-1.30); GLOMERULAR FILTRATION RATE > 60.0 (>39); GLUCOSE, FASTING 146 MG/DL (70-100); POTASSIUM SERUM 4.9 MEQ/L (3.5-5.1); SODIUM LEVEL 138 MEQ/L (136-145); VANCOMYCIN LEVEL TROUGH 13.7 UG/ML (10.0-20.0)
[2022-01-02] MEDS: guaiFENesin ER 600 MG TAB PO SCH ×2 (10:15→20:26)
[2022-01-02] MEDS: INSULIN LISPRO (NovoLOG) PER UNIT SC SCH ×4 (10:15→21:00)
[2022-01-02] MEDS: LevoFLOXacin 750 MG TABLET PO SCH (10:15)
[2022-01-02 12:55] VITALS: BP 155/78
[2022-01-02 14:00] VITALS: BP 151/75
[2022-01-02] MEDS ORDERED: ACETAMINOPHEN TAB 650MG DOSE (2X325MG) PO PRN (19:05)
[2022-01-02] MEDS: KETOROLAC 30 MG/ML 1ML VIAL IV PRN (19:36)
[2022-01-02] MEDS: MIRTAZAPINE 15 MG TAB PO SCH (20:26)
[2022-01-02] MEDS: QUEtiapine FUMARATE 25 MG TAB PO SCH (20:26)
[2022-01-02 21:30] VITALS: BP 152/74
[2022-01-02] MEDS: traZODone 100 MG TAB PO PRN (22:41)
[2022-01-03 01:48] VITALS: BP 141/74
[2022-01-03] MEDS: LevoFLOXacin 750 MG TABLET PO SCH (05:04)
[2022-01-03] MEDS: SODIUM CHLORIDE 0.9% INJ 10 ML SYR IV SCH ×2 (05:04→17:07)
[2022-01-03 05:37] VITALS: BP 154/70
[2022-01-03] MEDS: SYMBICORT 160/4.5MCG INHALER 6GM INH SCH ×2 (07:30→19:59)
[2022-01-03] MEDS: INSULIN LISPRO (NovoLOG) PER UNIT SC SCH ×4 (07:30→21:00)
[2022-01-03] MEDS: MIDODRINE 5 MG TAB PO SCH ×3 (08:00→16:00)
[2022-01-03] MEDS: guaiFENesin ER 600 MG TAB PO SCH ×2 (08:09→20:15)
[2022-01-03 09:47] LABS: EOS # 0.1 10^3/uL (0.0-0.5); EOS % 3.9 % (0.0-3.0); HEMATOCRIT 29.2 % (36.0-47.0); HEMOGLOBIN 9.9 g/dl (12.0-15.5); LYMPH # 0.6 10^3/uL (1.5-5.0); LYMPH % 34.1 % (24.0-44.0); MEAN CORPUSCULAR HEMOGLOBIN 29.2 pg (27.0-33.0); MEAN CORPUSCULAR HGB CONC 33.9 g/dl (32.0-36.5); MEAN CORPUSCULAR VOLUME 86.1 fl (80.0-96.0); MONO # 0.3 10^3/uL (0.0-0.8); MONO % 16.8 % (2.0-8.0); NEUTROPHILS % 45.2 % (36.0-66.0); RED BLOOD COUNT 3.39 10^6/uL (4.00-5.40); WHITE BLOOD COUNT 1.8 10^3/uL (4.0-10.0)
[2022-01-03 10:00] VITALS: BP 165/83
[2022-01-03 10:03] LABS: ALBUMIN 2.8 GM/DL (3.2-5.2); ALT/SGPT 12 U/L (12-78); AMYLASE 22 U/L (25-115); BILIRUBIN,TOTAL 0.4 MG/DL (0.2-1.0); BLOOD UREA NITROGEN 6 MG/DL (7-18); CALCIUM LEVEL 8.9 MG/DL (8.8-10.2); CARBON DIOXIDE LEVEL 27 MEQ/L (21-32); CHLORIDE LEVEL 105 MEQ/L (98-107); CREATININE FOR GFR 0.84 MG/DL (0.55-1.30); GLOMERULAR FILTRATION RATE > 60.0 (>39); GLUCOSE, FASTING 165 MG/DL (70-100); LIPASE 99 U/L (73-393); POTASSIUM SERUM 4.1 MEQ/L (3.5-5.1); SODIUM LEVEL 139 MEQ/L (136-145); TOTAL PROTEIN 5.8 GM/DL (6.4-8.2)
[2022-01-03 10:17] LABS: NEUTROPHILS # 0.8 10^3/uL (1.5-8.5); PLATELET COUNT, AUTOMATED 81 10^3/uL (150-450)
[2022-01-03 10:36] LABS: ERYTHROCYTE SEDIMENTATION RATE 56 mm/hr (0-30)
[2022-01-03] MEDS: oxyCODONE 5MG TAB PO PRN (12:13)
[2022-01-03] MEDS: QUEtiapine FUMARATE 25 MG TAB PO SCH (20:15)
[2022-01-03] MEDS: traZODone 100 MG TAB PO SCH (20:15)
[2022-01-03] MEDS: MIRTAZAPINE 15 MG TAB PO SCH (20:16)
[2022-01-04] MEDS: SODIUM CHLORIDE 0.9% INJ 10 ML SYR IV SCH ×2 (05:15→17:22)
[2022-01-04] MEDS: LevoFLOXacin 750 MG TABLET PO SCH (05:15)
[2022-01-04] MEDS: ONDANSETRON 4MG 2ML VIAL IV PRN ×2 (05:21→18:39)
[2022-01-04 05:29] VITALS: BP_SYST 149; BP_SYST 163; BP_DIAS 104; BP_DIAS 84
[2022-01-04] MEDS: SYMBICORT 160/4.5MCG INHALER 6GM INH SCH ×2 (07:22→20:00)
[2022-01-04] MEDS: guaiFENesin ER 600 MG TAB PO SCH ×2 (09:42→22:16)
[2022-01-04] MEDS: MIDODRINE 5 MG TAB PO SCH ×4 (09:42→16:00)
[2022-01-04] MEDS: oxyCODONE 5MG TAB PO PRN ×2 (09:42→22:13)
[2022-01-04] MEDS: INSULIN LISPRO (NovoLOG) PER UNIT SC SCH ×4 (09:46→21:00)
[2022-01-04] MEDS ORDERED: ALBUTEROL 90 MCG/ACT 8GM HFA INHALER INH PRN (12:05)
[2022-01-04] MEDS ORDERED: ENTER DRUG NAME HERE (PATIENT'S OWN MED) PO SCH (12:05)
[2022-01-04] MEDS ORDERED: BACLOFEN 5MG PER 1/2 TABLET PO PRN (12:10)
[2022-01-04] MEDS: PANTOPRAZOLE 40MG TAB (PROTONIX) PO SCH (14:06)
[2022-01-04] MEDS: FERROUS SULFATE 325MG TAB PO SCH (14:07)
[2022-01-04] MEDS: CLOPIDOGREL 75 MG TAB PO SCH (14:07)
[2022-01-04] MEDS: TIOTROPIUM INHALER/CAPSULE (SPIRIVA) INH SCH (16:04)
[2022-01-04] MEDS: ADVAIR HFA 230/21MCG INHALER INH SCH (20:40)
[2022-01-04] MEDS: oxyBUTYnin *DITROPAN XL* 5 MG TABCR PO SCH (22:14)
[2022-01-04] MEDS: VITAMIN A & D OINTMENT 42.5GM TOP SCH (22:14)
[2022-01-04] MEDS: FOLIC ACID 1 MG TAB PO SCH (22:15)
[2022-01-04] MEDS: MONTELUKAST 10 MG TAB PO SCH (22:15)
[2022-01-04] MEDS: traZODone 100 MG TAB PO SCH (22:15)
[2022-01-04] MEDS: MIRTAZAPINE 15 MG TAB PO SCH (22:15)
[2022-01-04] MEDS: QUEtiapine FUMARATE 25 MG TAB PO SCH (22:15)
[2022-01-04] MEDS: SIMVASTATIN 20 MG TAB PO SCH (22:16)
[2022-01-04] MEDS ORDERED: oxyCODONE 5MG TAB PO ONE (22:40)
[2022-01-05] MEDS: ONDANSETRON 4MG 2ML VIAL IV PRN ×3 (00:58→21:03)
[2022-01-05 05:58] VITALS: BP 170/82
[2022-01-05] MEDS: LevoFLOXacin 750 MG TABLET PO SCH (06:00)
[2022-01-05] MEDS: PROMETHAZINE 25MG/ML 1ML VIAL IV PRN ×2 (06:53→13:44)
[2022-01-05] MEDS: SODIUM CHLORIDE 0.9% INJ 10 ML SYR IV SCH ×2 (06:55→18:11)
[2022-01-05] MEDS: ADVAIR HFA 230/21MCG INHALER INH SCH ×2 (07:23→19:30)
[2022-01-05] MEDS: TIOTROPIUM INHALER/CAPSULE (SPIRIVA) INH SCH (07:23)
[2022-01-05] MEDS: SYMBICORT 160/4.5MCG INHALER 6GM INH SCH ×2 (07:23→19:30)
[2022-01-05] MEDS: INSULIN LISPRO (NovoLOG) PER UNIT SC SCH ×5 (07:30→22:11)
[2022-01-05] MEDS: MIDODRINE 5 MG TAB PO SCH ×2 (08:00→12:00)
[2022-01-05] MEDS: CLOPIDOGREL 75 MG TAB PO SCH (09:00)
[2022-01-05] MEDS: FOLIC ACID 1 MG TAB PO SCH ×2 (09:00→20:47)
[2022-01-05] MEDS: oxyBUTYnin *DITROPAN XL* 5 MG TABCR PO SCH ×2 (09:00→20:47)
[2022-01-05] MEDS: PANTOPRAZOLE 40MG TAB (PROTONIX) PO SCH (09:00)
[2022-01-05] MEDS: guaiFENesin ER 600 MG TAB PO SCH ×2 (09:00→20:47)
[2022-01-05] MEDS: MYRBETRIQ 50MG TABLET (PATIENT'S OWN MED) PO SCH (09:00)
[2022-01-05] MEDS: FERROUS SULFATE 325MG TAB PO SCH (09:00)
[2022-01-05] MEDS: oxyCODONE 5MG TAB PO PRN (11:21)
[2022-01-05] MEDS: SODIUM CHLORIDE 0.9% INJ 10 ML SYR IV PRN ×2 (11:21→21:03)
[2022-01-05 14:00] VITALS: BP 188/90
[2022-01-05] MEDS ORDERED: BISACODYL 10 MG SUPP PR PRN (14:40)
[2022-01-05 14:41] LABS: HEMATOCRIT 40.4 % (36.0-47.0); HEMOGLOBIN 13.8 g/dl (12.0-15.5); LYMPH # 0.6 10^3/uL (1.5-5.0); LYMPH % 19.7 % (24.0-44.0); MEAN CORPUSCULAR HEMOGLOBIN 28.6 pg (27.0-33.0); MEAN CORPUSCULAR HGB CONC 34.2 g/dl (32.0-36.5); MEAN CORPUSCULAR VOLUME 83.6 fl (80.0-96.0); MONO # 0.3 10^3/uL (0.0-0.8); MONO % 9.2 % (2.0-8.0); NEUTROPHILS % 70.7 % (36.0-66.0); PLATELET COUNT, AUTOMATED 113 10^3/uL (150-450); RED BLOOD COUNT 4.83 10^6/uL (4.00-5.40); WHITE BLOOD COUNT 2.8 10^3/uL (4.0-10.0)
[2022-01-05 14:59] LABS: ERYTHROCYTE SEDIMENTATION RATE 39 mm/hr (0-30)
[2022-01-05 15:12] LABS: CK-MB VALUE MASS 2.1 NG/ML (<3.6); MB/CK RELATIVE INDEX 7.78 (< OR =4)
[2022-01-05 15:13] LABS: ALBUMIN 3.6 GM/DL (3.2-5.2); ALT/SGPT 21 U/L (12-78); AMYLASE 24 U/L (25-115); BILIRUBIN,TOTAL 0.6 MG/DL (0.2-1.0); BLOOD UREA NITROGEN 12 MG/DL (7-18); C REACTIVE PROTEIN QUANTITATIV 0.63 MG/DL (0.00-0.30); CALCIUM LEVEL 9.6 MG/DL (8.8-10.2); CARBON DIOXIDE LEVEL 29 MEQ/L (21-32); CHLORIDE LEVEL 96 MEQ/L (98-107); CREATININE FOR GFR 0.78 MG/DL (0.55-1.30); GLOMERULAR FILTRATION RATE > 60.0 (>39); GLUCOSE, FASTING 231 MG/DL (70-100); LIPASE 82 U/L (73-393); POTASSIUM SERUM 3.8 MEQ/L (3.5-5.1); SODIUM LEVEL 132 MEQ/L (136-145); TOTAL PROTEIN 7.4 GM/DL (6.4-8.2)
[2022-01-05] MEDS: NITROGLYCERIN 2% OINT 1 GM *U/D* PKT TOP SCH ×2 (16:15→20:48)
[2022-01-05] MEDS: SCOPOLAMINE 1MG TRANSDERMAL PATCH TOP SCH (16:15)
[2022-01-05] MEDS ORDERED: atenoloL 25 MG TAB PO ONE (17:00)
[2022-01-05 17:26] VITALS: BP 166/87
[2022-01-05] MEDS: MIRTAZAPINE 15 MG TAB PO SCH (20:47)
[2022-01-05] MEDS: MONTELUKAST 10 MG TAB PO SCH (20:47)
[2022-01-05] MEDS: traZODone 100 MG TAB PO SCH (20:47)
[2022-01-05] MEDS: SIMVASTATIN 20 MG TAB PO SCH (20:48)
[2022-01-05] MEDS: METHENAMINE HIPPURATE 1 GM PO SCH (20:48)
[2022-01-05] MEDS: QUEtiapine FUMARATE 25 MG TAB PO SCH (20:48)
[2022-01-05] MEDS: VITAMIN A & D OINTMENT 42.5GM TOP SCH (20:49)
[2022-01-06] MEDS ORDERED: **hydrALAZINE** 50 MG TAB PO ONE (01:00)
[2022-01-06] MEDS: PROMETHAZINE 25MG/ML 1ML VIAL IV PRN (01:05)
[2022-01-06] MEDS: NITROGLYCERIN 2% OINT 1 GM *U/D* PKT TOP SCH ×3 (01:07→08:58)
[2022-01-06] MEDS: oxyCODONE 5MG TAB PO PRN ×2 (01:08→18:09)
[2022-01-06] MEDS: LevoFLOXacin 750 MG TABLET PO SCH (05:33)
[2022-01-06] MEDS: SODIUM CHLORIDE 0.9% INJ 10 ML SYR IV SCH ×2 (05:34→18:07)
[2022-01-06] MEDS: atenoloL 25 MG TAB PO SCH (05:43)
[2022-01-06 06:00] VITALS: BP 174/92
[2022-01-06] MEDS ORDERED: atenoloL 25 MG TAB PO ONE (06:00)
[2022-01-06] MEDS: ADVAIR HFA 230/21MCG INHALER INH SCH ×2 (08:00→20:41)
[2022-01-06] MEDS: SYMBICORT 160/4.5MCG INHALER 6GM INH SCH ×2 (08:06→20:41)
[2022-01-06] MEDS: TIOTROPIUM INHALER/CAPSULE (SPIRIVA) INH SCH (08:06)
[2022-01-06] MEDS: INSULIN LISPRO (NovoLOG) PER UNIT SC SCH ×3 (08:49→18:07)
[2022-01-06] MEDS: FERROUS SULFATE 325MG TAB PO SCH (08:52)
[2022-01-06] MEDS: guaiFENesin ER 600 MG TAB PO SCH ×2 (08:53→20:27)
[2022-01-06] MEDS: FOLIC ACID 1 MG TAB PO SCH ×2 (08:53→20:27)
[2022-01-06] MEDS: METHENAMINE HIPPURATE 1 GM PO SCH ×2 (08:59→20:25)
[2022-01-06] MEDS: CLOPIDOGREL 75 MG TAB PO SCH (08:59)
[2022-01-06] MEDS: MYRBETRIQ 50MG TABLET (PATIENT'S OWN MED) PO SCH (08:59)
[2022-01-06] MEDS: PANTOPRAZOLE 40MG TAB (PROTONIX) PO SCH (08:59)
[2022-01-06] MEDS: oxyBUTYnin *DITROPAN XL* 5 MG TABCR PO SCH ×2 (09:00→20:26)
[2022-01-06] MEDS: amLODIPine 5 MG TAB PO SCH (11:30)
[2022-01-06] MEDS ORDERED: PROCHLORPERAZINE 10MG 2ML VIAL IV ONE (18:45)
[2022-01-06] MEDS ORDERED: BISACODYL 5 MG TAB PO PRN (18:45)
[2022-01-06] MEDS: ONDANSETRON 4MG 2ML VIAL IV PRN (18:53)
[2022-01-06 20:06] VITALS: BP 152/84
[2022-01-06] MEDS ORDERED: MORPHINE 2 MG/ML 1ML VIAL IV ONE (20:10)
[2022-01-06] MEDS: DOCUSATE SODIUM 100MG CAPSULE PO SCH (20:24)
[2022-01-06] MEDS: MIRTAZAPINE 15 MG TAB PO SCH (20:25)
[2022-01-06] MEDS: VITAMIN A & D OINTMENT 42.5GM TOP SCH (20:25)
[2022-01-06] MEDS: traZODone 100 MG TAB PO SCH (20:26)
[2022-01-06] MEDS: MONTELUKAST 10 MG TAB PO SCH (20:26)
[2022-01-06] MEDS: QUEtiapine FUMARATE 25 MG TAB PO SCH (20:26)
[2022-01-06] MEDS: SIMVASTATIN 20 MG TAB PO SCH (20:27)
[2022-01-07 02:30] VITALS: BP 166/82
[2022-01-07] MEDS: ONDANSETRON 4MG 2ML VIAL IV PRN (02:31)
[2022-01-07] MEDS: **hydrALAZINE** 10 MG TAB PO PRN (02:42)
[2022-01-07 06:00] VITALS: BP 158/77
[2022-01-07] MEDS: SODIUM CHLORIDE 0.9% INJ 10 ML SYR IV SCH ×2 (06:15→17:26)
[2022-01-07] MEDS: TIOTROPIUM INHALER/CAPSULE (SPIRIVA) INH SCH (07:22)
[2022-01-07] MEDS: SYMBICORT 160/4.5MCG INHALER 6GM INH SCH (07:22)
[2022-01-07] MEDS: ADVAIR HFA 230/21MCG INHALER INH SCH ×2 (08:00→19:28)
[2022-01-07] MEDS: MIRALAX *UNIT DOSE* 17GM PACKET PO SCH (08:33)
[2022-01-07] MEDS: INSULIN LISPRO (NovoLOG) PER UNIT SC SCH ×4 (08:33→21:00)
[2022-01-07] MEDS: DOCUSATE SODIUM 100MG CAPSULE PO SCH ×2 (08:33→21:13)
[2022-01-07] MEDS: guaiFENesin ER 600 MG TAB PO SCH ×2 (08:34→21:14)
[2022-01-07] MEDS: PANTOPRAZOLE 40MG TAB (PROTONIX) PO SCH (08:34)
[2022-01-07] MEDS: FOLIC ACID 1 MG TAB PO SCH ×2 (08:34→21:14)
[2022-01-07] MEDS: oxyBUTYnin *DITROPAN XL* 5 MG TABCR PO SCH ×2 (08:34→21:13)
[2022-01-07] MEDS: MYRBETRIQ 50MG TABLET (PATIENT'S OWN MED) PO SCH (08:34)
[2022-01-07] MEDS: METHENAMINE HIPPURATE 1 GM PO SCH ×2 (08:34→21:13)
[2022-01-07] MEDS: CLOPIDOGREL 75 MG TAB PO SCH (08:34)
[2022-01-07] MEDS: FERROUS SULFATE 325MG TAB PO SCH (08:34)
[2022-01-07] MEDS: amLODIPine 5 MG TAB PO SCH (08:35)
[2022-01-07] MEDS: atenoloL 25 MG TAB PO SCH (08:35)
[2022-01-07 11:11] LABS: HEMATOCRIT 35.8 % (36.0-47.0); MEAN CORPUSCULAR HEMOGLOBIN 29.5 pg (27.0-33.0); MEAN CORPUSCULAR HGB CONC 36.3 g/dl (32.0-36.5); MEAN CORPUSCULAR VOLUME 81.4 fl (80.0-96.0); PLATELET COUNT, AUTOMATED 174 10^3/uL (150-450); WHITE BLOOD COUNT 5.2 10^3/uL (4.0-10.0)
[2022-01-07 12:04] LABS: ALBUMIN 3.4 GM/DL (3.2-5.2); ALT/SGPT 51 U/L (12-78); BILIRUBIN,TOTAL 0.8 MG/DL (0.2-1.0); BLOOD UREA NITROGEN 20 MG/DL (7-18); CALCIUM LEVEL 8.8 MG/DL (8.8-10.2); CARBON DIOXIDE LEVEL 25 MEQ/L (21-32); CHLORIDE LEVEL 90 MEQ/L (98-107); CREATININE FOR GFR 0.81 MG/DL (0.55-1.30); GLOMERULAR FILTRATION RATE > 60.0 (>39); GLUCOSE, FASTING 183 MG/DL (70-100); POTASSIUM SERUM 3.8 MEQ/L (3.5-5.1); SODIUM LEVEL 124 MEQ/L (136-145); TOTAL PROTEIN 6.9 GM/DL (6.4-8.2)
[2022-01-07] MEDS ORDERED: NS 500 ML IV ONE (13:50)
[2022-01-07 13:58] LABS: OSMOLALITY SERUM 262 MOSM/KG (280-301)
[2022-01-07 14:00] VITALS: BP 129/68
[2022-01-07] MEDS: LACTULOSE 20 GM/30 ML SYRUP UD PO PRN (19:35)
[2022-01-07] MEDS: MIRTAZAPINE 15 MG TAB PO SCH (21:13)
[2022-01-07] MEDS: traZODone 100 MG TAB PO SCH (21:13)
[2022-01-07] MEDS: VITAMIN A & D OINTMENT 42.5GM TOP SCH (21:13)
[2022-01-07] MEDS: MONTELUKAST 10 MG TAB PO SCH (21:14)
[2022-01-07] MEDS: QUEtiapine FUMARATE 25 MG TAB PO SCH (21:14)
[2022-01-07] MEDS: SIMVASTATIN 20 MG TAB PO SCH (21:14)
[2022-01-07 21:20] VITALS: BP 132/69
[2022-01-08] MEDS: SODIUM CHLORIDE 0.9% INJ 10 ML SYR IV SCH ×2 (05:12→17:26)
[2022-01-08] MEDS: **hydrALAZINE** 10 MG TAB PO PRN (05:15)
[2022-01-08 05:20] VITALS: BP 178/82
[2022-01-08 06:48] LABS: HEMATOCRIT 35.8 % (36.0-47.0); HEMOGLOBIN 13.3 g/dl (12.0-15.5); MEAN CORPUSCULAR HEMOGLOBIN 29.9 pg (27.0-33.0); MEAN CORPUSCULAR VOLUME 80.4 fl (80.0-96.0); PLATELET COUNT, AUTOMATED 165 10^3/uL (150-450); RED BLOOD COUNT 4.45 10^6/uL (4.00-5.40); WHITE BLOOD COUNT 5.6 10^3/uL (4.0-10.0)
[2022-01-08 06:49] LABS: MEAN CORPUSCULAR HGB CONC 37.2 g/dl (32.0-36.5)
[2022-01-08 06:58] LABS: ALBUMIN 3.5 GM/DL (3.2-5.2); ALT/SGPT 56 U/L (12-78); BILIRUBIN,TOTAL 0.8 MG/DL (0.2-1.0); BLOOD UREA NITROGEN 21 MG/DL (7-18); CARBON DIOXIDE LEVEL 25 MEQ/L (21-32); CHLORIDE LEVEL 94 MEQ/L (98-107); CREATININE FOR GFR 0.87 MG/DL (0.55-1.30); GLOMERULAR FILTRATION RATE > 60.0 (>39); GLUCOSE, FASTING 189 MG/DL (70-100); POTASSIUM SERUM 3.8 MEQ/L (3.5-5.1); SODIUM LEVEL 128 MEQ/L (136-145)
[2022-01-08] MEDS: INSULIN LISPRO (NovoLOG) PER UNIT SC SCH ×4 (07:30→21:00)
[2022-01-08] MEDS: ADVAIR HFA 230/21MCG INHALER INH SCH ×2 (07:31→19:42)
[2022-01-08] MEDS: TIOTROPIUM INHALER/CAPSULE (SPIRIVA) INH SCH (07:31)
[2022-01-08] MEDS: SCOPOLAMINE 1MG TRANSDERMAL PATCH TOP SCH (08:59)
[2022-01-08] MEDS: MYRBETRIQ 50MG TABLET (PATIENT'S OWN MED) PO SCH (08:59)
[2022-01-08] MEDS: FOLIC ACID 1 MG TAB PO SCH ×2 (09:00→22:26)
[2022-01-08] MEDS: FERROUS SULFATE 325MG TAB PO SCH (09:00)
[2022-01-08] MEDS: oxyBUTYnin *DITROPAN XL* 5 MG TABCR PO SCH ×2 (09:00→22:25)
[2022-01-08] MEDS: METHENAMINE HIPPURATE 1 GM PO SCH ×2 (09:00→22:26)
[2022-01-08] MEDS: CLOPIDOGREL 75 MG TAB PO SCH (09:00)
[2022-01-08] MEDS: DOCUSATE SODIUM 100MG CAPSULE PO SCH ×2 (09:00→22:25)
[2022-01-08] MEDS: MIRALAX *UNIT DOSE* 17GM PACKET PO SCH (09:00)
[2022-01-08] MEDS: PANTOPRAZOLE 40MG TAB (PROTONIX) PO SCH (09:00)
[2022-01-08] MEDS: guaiFENesin ER 600 MG TAB PO SCH ×2 (09:00→22:25)
[2022-01-08] MEDS: atenoloL 25 MG TAB PO SCH (09:02)
[2022-01-08] MEDS: amLODIPine 5 MG TAB PO SCH (09:02)
[2022-01-08] MEDS: LACTULOSE 20 GM/30 ML SYRUP UD PO PRN (09:11)
[2022-01-08 14:00] VITALS: BP 142/79
[2022-01-08 21:03] VITALS: BP 139/79
[2022-01-08] MEDS: SIMVASTATIN 20 MG TAB PO SCH (22:25)
[2022-01-08] MEDS: MONTELUKAST 10 MG TAB PO SCH (22:25)
[2022-01-08] MEDS: traZODone 100 MG TAB PO SCH (22:26)
[2022-01-08] MEDS: MIRTAZAPINE 15 MG TAB PO SCH (22:26)
[2022-01-08] MEDS: QUEtiapine FUMARATE 25 MG TAB PO SCH (22:26)
[2022-01-08] MEDS: VITAMIN A & D OINTMENT 42.5GM TOP SCH (22:32)
[2022-01-09 06:00] VITALS: BP 136/78
[2022-01-09] MEDS: SODIUM CHLORIDE 0.9% INJ 10 ML SYR IV SCH ×3 (06:00→22:44)
[2022-01-09 07:08] LABS: HEMOGLOBIN 13.1 g/dl (12.0-15.5); MEAN CORPUSCULAR HEMOGLOBIN 29.6 pg (27.0-33.0); MEAN CORPUSCULAR HGB CONC 36.4 g/dl (32.0-36.5); MEAN CORPUSCULAR VOLUME 81.3 fl (80.0-96.0); PLATELET COUNT, AUTOMATED 166 10^3/uL (150-450); RED BLOOD COUNT 4.43 10^6/uL (4.00-5.40); WHITE BLOOD COUNT 5.8 10^3/uL (4.0-10.0)
[2022-01-09 07:30] LABS: ALBUMIN 3.3 GM/DL (3.2-5.2); ALT/SGPT 45 U/L (12-78); BILIRUBIN,TOTAL 0.7 MG/DL (0.2-1.0); BLOOD UREA NITROGEN 23 MG/DL (7-18); CALCIUM LEVEL 8.9 MG/DL (8.8-10.2); CARBON DIOXIDE LEVEL 25 MEQ/L (21-32); CHLORIDE LEVEL 95 MEQ/L (98-107); CREATININE FOR GFR 0.96 MG/DL (0.55-1.30); GLOMERULAR FILTRATION RATE > 60.0 (>39); GLUCOSE, FASTING 177 MG/DL (70-100); POTASSIUM SERUM 3.7 MEQ/L (3.5-5.1); SODIUM LEVEL 129 MEQ/L (136-145); TOTAL PROTEIN 6.6 GM/DL (6.4-8.2)
[2022-01-09] MEDS: INSULIN LISPRO (NovoLOG) PER UNIT SC SCH ×4 (07:30→22:44)
[2022-01-09] MEDS: TIOTROPIUM INHALER/CAPSULE (SPIRIVA) INH SCH (08:00)
[2022-01-09] MEDS: ADVAIR HFA 230/21MCG INHALER INH SCH ×2 (08:00→19:26)
[2022-01-09] MEDS: METHENAMINE HIPPURATE 1 GM PO SCH ×2 (09:26→22:41)
[2022-01-09] MEDS: MIRALAX *UNIT DOSE* 17GM PACKET PO SCH (09:26)
[2022-01-09] MEDS: PANTOPRAZOLE 40MG TAB (PROTONIX) PO SCH (09:27)
[2022-01-09] MEDS: CLOPIDOGREL 75 MG TAB PO SCH (09:27)
[2022-01-09] MEDS: guaiFENesin ER 600 MG TAB PO SCH ×2 (09:27→22:43)
[2022-01-09] MEDS: MYRBETRIQ 50MG TABLET (PATIENT'S OWN MED) PO SCH (09:27)
[2022-01-09] MEDS: FOLIC ACID 1 MG TAB PO SCH ×2 (09:27→22:42)
[2022-01-09] MEDS: oxyBUTYnin *DITROPAN XL* 5 MG TABCR PO SCH ×2 (09:27→22:43)
[2022-01-09] MEDS: DOCUSATE SODIUM 100MG CAPSULE PO SCH ×2 (09:27→22:42)
[2022-01-09] MEDS: FERROUS SULFATE 325MG TAB PO SCH (09:27)
[2022-01-09] MEDS: atenoloL 25 MG TAB PO SCH (09:33)
[2022-01-09] MEDS: amLODIPine 5 MG TAB PO SCH (09:33)
[2022-01-09] MEDS: VITAMIN A & D OINTMENT 42.5GM TOP SCH (22:41)
[2022-01-09] MEDS: MIRTAZAPINE 15 MG TAB PO SCH (22:42)
[2022-01-09] MEDS: MONTELUKAST 10 MG TAB PO SCH (22:42)
[2022-01-09] MEDS: traZODone 100 MG TAB PO SCH (22:42)
[2022-01-09] MEDS: SIMVASTATIN 20 MG TAB PO SCH (22:42)
[2022-01-09] MEDS: QUEtiapine FUMARATE 25 MG TAB PO SCH (22:43)
[2022-01-09] MEDS: oxyCODONE 5MG TAB PO PRN (22:44)
[2022-01-09] MEDS: ONDANSETRON 4MG 2ML VIAL IV PRN (22:44)
[2022-01-10 06:00] VITALS: BP 96/52
[2022-01-10] MEDS: TIOTROPIUM INHALER/CAPSULE (SPIRIVA) INH SCH (07:11)
[2022-01-10] MEDS: ADVAIR HFA 230/21MCG INHALER INH SCH ×2 (07:11→19:23)
[2022-01-10 07:50] VITALS: BP 108/54
[2022-01-10] MEDS: INSULIN LISPRO (NovoLOG) PER UNIT SC SCH ×4 (08:51→21:00)
[2022-01-10] MEDS: METHENAMINE HIPPURATE 1 GM PO SCH ×2 (08:51→21:13)
[2022-01-10] MEDS: MIRALAX *UNIT DOSE* 17GM PACKET PO SCH (08:52)
[2022-01-10] MEDS: MYRBETRIQ 50MG TABLET (PATIENT'S OWN MED) PO SCH (08:52)
[2022-01-10] MEDS: DOCUSATE SODIUM 100MG CAPSULE PO SCH ×2 (08:53→21:12)
[2022-01-10] MEDS: PANTOPRAZOLE 40MG TAB (PROTONIX) PO SCH (08:54)
[2022-01-10] MEDS: FERROUS SULFATE 325MG TAB PO SCH (08:55)
[2022-01-10] MEDS: oxyBUTYnin *DITROPAN XL* 5 MG TABCR PO SCH ×2 (08:55→21:11)
[2022-01-10] MEDS: FOLIC ACID 1 MG TAB PO SCH ×2 (08:55→21:12)
[2022-01-10] MEDS: atenoloL 25 MG TAB PO SCH (08:55)
[2022-01-10] MEDS: amLODIPine 5 MG TAB PO SCH (08:55)
[2022-01-10] MEDS: CLOPIDOGREL 75 MG TAB PO SCH (08:56)
[2022-01-10] MEDS: guaiFENesin ER 600 MG TAB PO SCH ×2 (08:56→21:12)
[2022-01-10] MEDS: oxyCODONE 5MG TAB PO PRN (13:59)
[2022-01-10] MEDS: SODIUM CHLORIDE 0.9% INJ 10 ML SYR IV SCH (16:59)
[2022-01-10] MEDS: SIMVASTATIN 20 MG TAB PO SCH (21:11)
[2022-01-10] MEDS: MONTELUKAST 10 MG TAB PO SCH (21:11)
[2022-01-10] MEDS: MIRTAZAPINE 15 MG TAB PO SCH (21:12)
[2022-01-10] MEDS: CEPACOL LOZENGE PO PRN (21:12)
[2022-01-10] MEDS: QUEtiapine FUMARATE 25 MG TAB PO SCH (21:12)
[2022-01-10] MEDS: traZODone 100 MG TAB PO SCH (21:12)
[2022-01-10] MEDS: VITAMIN A & D OINTMENT 42.5GM TOP SCH (21:14)
[2022-01-10] MEDS: diphenhydrAMINE 25MG CAP PO PRN (22:09)
[2022-01-10] MEDS: diphenhydrAMINE CREAM 30GM TOP PRN (22:10)
[2022-01-11 05:52] VITALS: BP 136/71
[2022-01-11] MEDS: SODIUM CHLORIDE 0.9% INJ 10 ML SYR IV SCH ×2 (05:58→17:31)
[2022-01-11] MEDS: oxyCODONE 5MG TAB PO PRN ×2 (05:59→20:16)
[2022-01-11] MEDS: TIOTROPIUM INHALER/CAPSULE (SPIRIVA) INH SCH (08:08)
[2022-01-11] MEDS: ADVAIR HFA 230/21MCG INHALER INH SCH ×2 (08:09→19:19)
[2022-01-11] MEDS: MYRBETRIQ 50MG TABLET (PATIENT'S OWN MED) PO SCH (08:54)
[2022-01-11] MEDS: INSULIN LISPRO (NovoLOG) PER UNIT SC SCH ×4 (08:54→20:30)
[2022-01-11] MEDS: METHENAMINE HIPPURATE 1 GM PO SCH ×2 (08:54→20:16)
[2022-01-11] MEDS: SCOPOLAMINE 1MG TRANSDERMAL PATCH TOP SCH (08:55)
[2022-01-11] MEDS: oxyBUTYnin *DITROPAN XL* 5 MG TABCR PO SCH ×2 (08:56→20:15)
[2022-01-11] MEDS: DOCUSATE SODIUM 100MG CAPSULE PO SCH ×2 (08:56→20:14)
[2022-01-11] MEDS: guaiFENesin ER 600 MG TAB PO SCH ×2 (08:58→20:15)
[2022-01-11] MEDS: atenoloL 25 MG TAB PO SCH (08:58)
[2022-01-11] MEDS: amLODIPine 5 MG TAB PO SCH (09:00)
[2022-01-11] MEDS: MIRALAX *UNIT DOSE* 17GM PACKET PO SCH (09:00)
[2022-01-11] MEDS: PANTOPRAZOLE 40MG TAB (PROTONIX) PO SCH (09:01)
[2022-01-11] MEDS: FOLIC ACID 1 MG TAB PO SCH ×2 (09:01→20:15)
[2022-01-11] MEDS: CLOPIDOGREL 75 MG TAB PO SCH (09:01)
[2022-01-11] MEDS: FERROUS SULFATE 325MG TAB PO SCH (09:01)
[2022-01-11] MEDS: diphenhydrAMINE CREAM 30GM TOP PRN ×2 (09:03→20:14)
[2022-01-11] MEDS: diphenhydrAMINE 25MG CAP PO PRN ×2 (09:50→20:15)
[2022-01-11] MEDS: traZODone 100 MG TAB PO SCH (20:14)
[2022-01-11] MEDS: MONTELUKAST 10 MG TAB PO SCH (20:14)
[2022-01-11] MEDS: VITAMIN A & D OINTMENT 42.5GM TOP SCH (20:14)
[2022-01-11] MEDS: SIMVASTATIN 20 MG TAB PO SCH (20:15)
[2022-01-11] MEDS: MIRTAZAPINE 15 MG TAB PO SCH (20:15)
[2022-01-11] MEDS: QUEtiapine FUMARATE 25 MG TAB PO SCH (20:15)
[2022-01-12] MEDS: SODIUM CHLORIDE 0.9% INJ 10 ML SYR IV SCH ×2 (05:19→17:24)
[2022-01-12] MEDS: ADVAIR HFA 230/21MCG INHALER INH SCH ×2 (07:35→19:05)
[2022-01-12] MEDS: TIOTROPIUM INHALER/CAPSULE (SPIRIVA) INH SCH (07:35)
[2022-01-12] MEDS: diphenhydrAMINE CREAM 30GM TOP PRN ×2 (08:55→20:55)
[2022-01-12] MEDS: atenoloL 25 MG TAB PO SCH (08:56)
[2022-01-12] MEDS: MIRALAX *UNIT DOSE* 17GM PACKET PO SCH (08:56)
[2022-01-12] MEDS: INSULIN LISPRO (NovoLOG) PER UNIT SC SCH ×4 (08:56→20:52)
[2022-01-12] MEDS: FERROUS SULFATE 325MG TAB PO SCH (08:56)
[2022-01-12] MEDS: CLOPIDOGREL 75 MG TAB PO SCH (08:56)
[2022-01-12] MEDS: PANTOPRAZOLE 40MG TAB (PROTONIX) PO SCH (08:57)
[2022-01-12] MEDS: oxyBUTYnin *DITROPAN XL* 5 MG TABCR PO SCH ×2 (08:57→20:55)
[2022-01-12] MEDS: FOLIC ACID 1 MG TAB PO SCH ×2 (08:57→20:55)
[2022-01-12] MEDS: DOCUSATE SODIUM 100MG CAPSULE PO SCH ×2 (08:57→20:56)
[2022-01-12] MEDS: guaiFENesin ER 600 MG TAB PO SCH ×2 (08:57→20:54)
[2022-01-12] MEDS: METHENAMINE HIPPURATE 1 GM PO SCH ×2 (08:58→20:54)
[2022-01-12] MEDS: MYRBETRIQ 50MG TABLET (PATIENT'S OWN MED) PO SCH (08:58)
[2022-01-12] MEDS: oxyCODONE 5MG TAB PO PRN ×2 (08:59→20:53)
[2022-01-12] MEDS: amLODIPine 5 MG TAB PO SCH (09:00)
[2022-01-12] MEDS: diphenhydrAMINE 25MG CAP PO PRN (12:44)
[2022-01-12] MEDS: SODIUM CHLORIDE 0.9% INJ 10 ML SYR IV PRN (17:24)
[2022-01-12] MEDS: MIRTAZAPINE 15 MG TAB PO SCH (20:54)
[2022-01-12] MEDS: MONTELUKAST 10 MG TAB PO SCH (20:55)
[2022-01-12] MEDS: SIMVASTATIN 20 MG TAB PO SCH (20:55)
[2022-01-12] MEDS: QUEtiapine FUMARATE 25 MG TAB PO SCH (20:55)
[2022-01-12] MEDS: traZODone 100 MG TAB PO SCH (20:56)
[2022-01-12] MEDS: VITAMIN A & D OINTMENT 42.5GM TOP SCH (20:56)
[2022-01-13 06:00] VITALS: BP 143/70
[2022-01-13] MEDS: SODIUM CHLORIDE 0.9% INJ 10 ML SYR IV SCH (06:00)
[2022-01-13 06:36] LABS: HEMATOCRIT 33.5 % (36.0-47.0); HEMOGLOBIN 11.5 g/dl (12.0-15.5); MEAN CORPUSCULAR HEMOGLOBIN 29.1 pg (27.0-33.0); MEAN CORPUSCULAR HGB CONC 34.3 g/dl (32.0-36.5); MEAN CORPUSCULAR VOLUME 84.8 fl (80.0-96.0); PLATELET COUNT, AUTOMATED 159 10^3/uL (150-450); RED BLOOD COUNT 3.95 10^6/uL (4.00-5.40); WHITE BLOOD COUNT 3.6 10^3/uL (4.0-10.0)
[2022-01-13 07:11] LABS: ALBUMIN 3.1 GM/DL (3.2-5.2); ALT/SGPT 23 U/L (12-78); BILIRUBIN,TOTAL 0.4 MG/DL (0.2-1.0); BLOOD UREA NITROGEN 16 MG/DL (7-18); CALCIUM LEVEL 8.6 MG/DL (8.8-10.2); CARBON DIOXIDE LEVEL 25 MEQ/L (21-32); CHLORIDE LEVEL 104 MEQ/L (98-107); CREATININE FOR GFR 0.95 MG/DL (0.55-1.30); GLOMERULAR FILTRATION RATE > 60.0 (>39); GLUCOSE, FASTING 183 MG/DL (70-100); POTASSIUM SERUM 4.4 MEQ/L (3.5-5.1); SODIUM LEVEL 137 MEQ/L (136-145); TOTAL PROTEIN 6.2 GM/DL (6.4-8.2)
[2022-01-13] MEDS: TIOTROPIUM INHALER/CAPSULE (SPIRIVA) INH SCH (08:02)
[2022-01-13] MEDS: ADVAIR HFA 230/21MCG INHALER INH SCH (08:02)
[2022-01-13] MEDS: MIRALAX *UNIT DOSE* 17GM PACKET PO SCH (08:48)
[2022-01-13] MEDS: INSULIN LISPRO (NovoLOG) PER UNIT SC SCH ×2 (08:48→13:50)
[2022-01-13 08:49] VITALS: BP 108/60
[2022-01-13] MEDS: FOLIC ACID 1 MG TAB PO SCH (08:49)
[2022-01-13] MEDS: DOCUSATE SODIUM 100MG CAPSULE PO SCH (08:49)
[2022-01-13] MEDS: oxyBUTYnin *DITROPAN XL* 5 MG TABCR PO SCH (08:49)
[2022-01-13] MEDS: FERROUS SULFATE 325MG TAB PO SCH (08:49)
[2022-01-13] MEDS: CLOPIDOGREL 75 MG TAB PO SCH (08:49)
[2022-01-13] MEDS: guaiFENesin ER 600 MG TAB PO SCH (08:49)
[2022-01-13] MEDS: PANTOPRAZOLE 40MG TAB (PROTONIX) PO SCH (08:49)
[2022-01-13] MEDS: MYRBETRIQ 50MG TABLET (PATIENT'S OWN MED) PO SCH (08:50)
[2022-01-13] MEDS: atenoloL 25 MG TAB PO SCH (08:50)
[2022-01-13] MEDS: oxyCODONE 5MG TAB PO PRN (08:51)
[2022-01-13] MEDS: METHENAMINE HIPPURATE 1 GM PO SCH (08:51)
[2022-01-13] MEDS: diphenhydrAMINE CREAM 30GM TOP PRN (12:11)
[2022-01-13] MEDS ORDERED: AMLO25TA PO (14:02)
[2022-01-13] MEDS ORDERED: ATEN25TA PO (14:02)
[2022-01-13] MEDS ORDERED: BISAC5TA PO (14:02)
[2022-01-13] MEDS ORDERED: SPIR1CAP INH (14:02)
[2022-01-13] MEDS ORDERED: PROAAER10 INH (14:02)
[2022-01-13] MEDS ORDERED: MUCI600T31 PO (14:02)
[2022-01-14] MEDS ORDERED: SPIR1CAP INH (20:35)
[2022-01-14] MEDS ORDERED: PROAAER10 INH (20:35)
[2022-01-14] MEDS ORDERED: ATEN25TA PO (20:35)
[2022-01-14] MEDS ORDERED: MUCI600T31 PO (20:35)
[2022-01-14] MEDS ORDERED: BISA5TAB73 PO (20:35)
== END 2022-01-13 17:12 | disposition home health service (06) | DRG 698 ==
LOC: M ED 10:11 → EDBD 10:11 → M ED INP 13:59 → ENRESERV 15:21 → M PCU 22:01 → M MSPAV 12-30 18:40
PROVIDERS: ADMIT Internal Medicine; ATTEND Family Medicine
PROC: 02HV33Z Insertion of Infusion Device into Superior Vena Cava, Percutaneous Approach (ICD-10-PCS; 2021-12-29)
PROC: B246ZZZ Ultrasonography of Right and Left Heart (ICD-10-PCS; principal; 2021-12-31)
DX: T83.511A Infection and inflammatory reaction due to indwelling urethral catheter, initial encounter (principal); R65.20 Severe sepsis without septic shock; G93.41 Metabolic encephalopathy; A41.52 Sepsis due to Pseudomonas; A41.81 Sepsis due to Enterococcus; G92.8 Other toxic encephalopathy; E87.1 Hypo-osmolality and hyponatremia; R47.01 Aphasia; D61.818 Other pancytopenia; N17.9 Acute kidney failure, unspecified; I24.8 Other forms of acute ischemic heart disease; N39.0 Urinary tract infection, site not specified; R47.02 Dysphasia; I12.9 Hypertensive chronic kidney disease with stage 1 through stage 4 chronic kidney disease, or unspecified chronic kidney disease; F32.A Depression, unspecified; J44.9 Chronic obstructive pulmonary disease, unspecified; G89.29 Other chronic pain; E78.5 Hyperlipidemia, unspecified; Z78.1 Physical restraint status; F17.210 Nicotine dependence, cigarettes, uncomplicated; G43.909 Migraine, unspecified, not intractable, without status migrainosus; K21.9 Gastro-esophageal reflux disease without esophagitis; N18.32 Chronic kidney disease, stage 3b; E11.22 Type 2 diabetes mellitus with diabetic chronic kidney disease; M81.0 Age-related osteoporosis without current pathological fracture; R33.9 Retention of urine, unspecified; Z96.642 Presence of left artificial hip joint; Z79.891 Long term (current) use of opiate analgesic; Z79.899 Other long term (current) drug therapy; Z88.0 Allergy status to penicillin; Z88.2 Allergy status to sulfonamides; Z88.5 Allergy status to narcotic agent; Z88.6 Allergy status to analgesic agent; Z88.8 Allergy status to other drugs, medicaments and biological substances; Z91.041 Radiographic dye allergy status; Z79.51 Long term (current) use of inhaled steroids; Z93.3 Colostomy status; Z20.822 Contact with and (suspected) exposure to COVID-19

== ENCOUNTER 2022-01-14 15:10 | Observation (INO) | payer MEDICARE, MEDICAID ==
[~2022-01-14] VITALS: Ht 172.7 cm; Wt 76.4 kg
[~2022-01-14 15:10] MED LIST changes: +AMLO25TA PO; +ATEN25TA PO; +BACL5TAB2 PO; +BISAC5TA PO
[2022-01-14 16:22] LABS: VENOUS BASE EXCESS -2.1 (-2.0-2.0); VENOUS HCO3 24.9 MEQ/L (23.0-27.0); VENOUS O2 SATURATION 55.7 % (60.0-80.0); VENOUS PARTIAL PRESSURE CO2 52.2 mmHg (38.0-50.0); VENOUS PARTIAL PRESSURE O2 29.5 mmHg (30.0-50.0); VENOUS PH 7.297 UNITS (7.330-7.430); VENOUS STANDARD HCO3 21.8 MEQ/L; VENOUS TOTAL CO2 26.5 MEQ/L (24.0-28.0)
[2022-01-14 16:44] LABS: BASO % 0.5 % (0.0-1.0); EOS # 0.2 10^3/uL (0.0-0.5); EOS % 3.6 % (0.0-3.0); HEMATOCRIT 35.4 % (36.0-47.0); HEMOGLOBIN 12.2 g/dl (12.0-15.5); LYMPH # 2.5 10^3/uL (1.5-5.0); LYMPH % 55.2 % (24.0-44.0); MEAN CORPUSCULAR HEMOGLOBIN 29.5 pg (27.0-33.0); MEAN CORPUSCULAR HGB CONC 34.5 g/dl (32.0-36.5); MEAN CORPUSCULAR VOLUME 85.5 fl (80.0-96.0); MONO # 0.7 10^3/uL (0.0-0.8); MONO % 16.7 % (2.0-8.0); NEUTROPHILS # 1.1 10^3/uL (1.5-8.5); NEUTROPHILS % 23.8 % (36.0-66.0); PLATELET COUNT, AUTOMATED 268 10^3/uL (150-450); RED BLOOD COUNT 4.14 10^6/uL (4.00-5.40); WHITE BLOOD COUNT 4.4 10^3/uL (4.0-10.0)
[2022-01-14 18:06] LABS: ACETAMINOPHEN LEVEL < 2.0 UG/ML (10.0-30.0); ALBUMIN 3.5 GM/DL (3.2-5.2); ALT/SGPT 20 U/L (12-78); BILIRUBIN,TOTAL 0.5 MG/DL (0.2-1.0); BLOOD UREA NITROGEN 12 MG/DL (7-18); CALCIUM LEVEL 9.1 MG/DL (8.8-10.2); CARBON DIOXIDE LEVEL 29 MEQ/L (21-32); CHLORIDE LEVEL 99 MEQ/L (98-107); CREATININE FOR GFR 0.85 MG/DL (0.55-1.30); ETHYL ALCOHOL (ETHANOL) < 0.003 % (0.000-0.010); GLOMERULAR FILTRATION RATE > 60.0 (>39); GLUCOSE, FASTING 144 MG/DL (70-100); POTASSIUM SERUM 4.3 MEQ/L (3.5-5.1); SALICYLATE LEVEL < 1.7 MG/DL (5.0-30.0); SODIUM LEVEL 134 MEQ/L (136-145); TOTAL PROTEIN 6.9 GM/DL (6.4-8.2)
[2022-01-14] MEDS ORDERED: NALOXONE INJ 0.4MG/1ML VIAL (J2310 PER 1MG) IV STA (18:43)
[2022-01-14] MEDS ORDERED: NALOXONE 2MG/2ML SYRINGE (J2310 PER 1MG) As Ordered ONE (18:44)
[2022-01-14 19:49] LABS: RSV AMPLIFICATION NEGATIVE (NEGATIVE)
[2022-01-14] MEDS ORDERED: NS 500 ML IV ONE (20:30)
[2022-01-14] MEDS ORDERED: HOME MED LIST COMPLETE! XX SCH (20:35)
[2022-01-14] MEDS ORDERED: MUCI600T31 PO (20:35)
[2022-01-14] MEDS ORDERED: ATEN25TA PO (20:35)
[2022-01-14] MEDS ORDERED: PROAAER10 INH (20:35)
[2022-01-14] MEDS ORDERED: BISA5TAB73 PO (20:35)
[2022-01-14] MEDS ORDERED: SPIR1CAP INH (20:35)
[2022-01-14 21:25] LABS: MAGNESIUM LEVEL 1.8 MG/DL (1.8-2.4); PHOSPHORUS LEVEL 3.6 MG/DL (2.5-4.9)
[2022-01-14] MEDS ORDERED: NALOXONE HCL INJ 4 MG in D5W 496 ML IV SCH (22:00)
[2022-01-14] MEDS: LR 1,000 ML IV SCH (22:09)
[2022-01-15] VITALS (8 sets, daily range): BP systolic 108–151; BP diastolic 57–86; O2SAT 100
[2022-01-15 00:46] LABS: VENOUS BASE EXCESS -2.2 (-2.0-2.0); VENOUS HCO3 24.2 MEQ/L (23.0-27.0); VENOUS O2 SATURATION 56.7 % (60.0-80.0); VENOUS PARTIAL PRESSURE CO2 48.1 mmHg (38.0-50.0); VENOUS PARTIAL PRESSURE O2 30.5 mmHg (30.0-50.0); VENOUS PH 7.319 UNITS (7.330-7.430); VENOUS STANDARD HCO3 21.8 MEQ/L; VENOUS TOTAL CO2 25.6 MEQ/L (24.0-28.0)
[2022-01-15 00:50] LABS: APPEARANCE, URINE CLEAR (CLEAR); BACTERIA, URINE AUTO 1+ (NEGATIVE); BILIRUBIN, URINE AUTO NEGATIVE (NEGATIVE); BLOOD, URINE BLOOD NEGATIVE (NEGATIVE); COLOR, URINE STRAW (YELLOW); GLUCOSE, URINE (UA) AUTO NEGATIVE (NEGATIVE); KETONE, URINE AUTO NEGATIVE (NEGATIVE); LEUKOCYTE ESTERASE, URINE AUTO 1+ (NEGATIVE); MUCUS, URINE SMALL (NEGATIVE); NITRITE, URINE AUTO NEGATIVE (NEGATIVE); PROTEIN, URINE AUTO NEGATIVE (NEGATIVE); RBC, URINE AUTO 1 /HPF (0-3); SPECIFIC GRAVITY URINE AUTO 1.003 (1.002-1.035); SQUAMOUS EPITHELIAL CELL UR AU 0 /HPF (0-6); UROBILINOGEN, URINE AUTO 0.2 mg/dL (0.0-2.0); WBC, URINE AUTO 5 /HPF (0-3)
[2022-01-15] MEDS: LR 1,000 ML IV SCH (06:29)
[2022-01-15 07:26] LABS: ABG BASE EXCESS 0.5 (-2.0-2.0); ABG HCO3 23.5 MEQ/L (22.0-26.0); ABG O2 SATURATION 98.2 % (95.0-99.0); ABG PARTIAL PRESSURE CO2 32.7 mmHg (35.0-45.0); ABG PARTIAL PRESSURE O2 116.9 mmHg (75.0-100.0); ABG STANDARD HCO3 24.9 MEQ/L (22.0-26.0); ABG TOTAL CO2 24.5 MEQ/L (23.0-31.0); ABG pH (ARTERIAL) 7.475 UNITS (7.350-7.450)
[2022-01-15] MEDS: IPRATROPIUM 0.5MG/ALBUTEROL 2.5MG INH SOL UD 3ML (DUONEB) NEB SCH ×4 (07:29→19:46)
[2022-01-15 07:47] LABS: BLOOD UREA NITROGEN 9 MG/DL (7-18); CALCIUM LEVEL 9.2 MG/DL (8.8-10.2); CARBON DIOXIDE LEVEL 28 MEQ/L (21-32); CHLORIDE LEVEL 105 MEQ/L (98-107); CREATININE FOR GFR 0.82 MG/DL (0.55-1.30); GLOMERULAR FILTRATION RATE > 60.0 (>39); GLUCOSE, FASTING 180 MG/DL (70-100); POTASSIUM SERUM 4.2 MEQ/L (3.5-5.1); SODIUM LEVEL 135 MEQ/L (136-145)
[2022-01-15] MEDS ORDERED: ALBUTEROL 90 MCG/ACT 8GM HFA INHALER INH PRN (08:00)
[2022-01-15] MEDS: FOLIC ACID 1 MG TAB PO SCH ×2 (08:56→20:55)
[2022-01-15] MEDS: HEPARIN SOD (PORCINE) 5000UNITS/ML 1ML VIAL/SYRINGE SC SCH ×2 (08:56→20:54)
[2022-01-15] MEDS: PANTOPRAZOLE 40MG TAB (PROTONIX) PO SCH (08:56)
[2022-01-15] MEDS: CLOPIDOGREL 75 MG TAB PO SCH (08:56)
[2022-01-15] MEDS: guaiFENesin ER 600 MG TAB PO SCH ×2 (08:56→20:54)
[2022-01-15] MEDS: FERROUS SULFATE 325MG TAB PO SCH (08:56)
[2022-01-15] MEDS: atenoloL 25 MG TAB PO SCH (08:57)
[2022-01-15] MEDS: TIOTROPIUM INHALER/CAPSULE (SPIRIVA) INH SCH (10:27)
[2022-01-15] MEDS: oxyBUTYnin *DITROPAN XL* 5 MG TABCR PO SCH ×2 (11:19→20:54)
[2022-01-15] MEDS: traMADol 50 MG TAB PO PRN ×2 (13:41→23:46)
[2022-01-15] MEDS ORDERED: MONTELUKAST 10 MG TAB PO SCH (21:00)
[2022-01-15] MEDS ORDERED: SIMVASTATIN 20 MG TAB PO SCH (21:00)
[2022-01-15] MEDS ORDERED: VITAMIN A & D OINTMENT 42.5GM TOP SCH (21:00)
[2022-01-15] MEDS ORDERED: traZODone 100 MG TAB PO SCH (21:00)
[2022-01-15] MEDS ORDERED: BACLOFEN 5MG PER 1/2 TABLET PO SCH (21:00)
[2022-01-15] MEDS ORDERED: MIRTAZAPINE 15 MG TAB PO SCH (21:00)
[2022-01-16 03:30] VITALS: BP 139/65
[2022-01-16] MEDS ORDERED: ACETAMINOPHEN 500 MG TAB PO ONE (03:50)
[2022-01-16 07:33] VITALS: BP 107/51
[2022-01-16 08:00] LABS: BASO % 0.3 % (0.0-1.0); EOS # 0.1 10^3/uL (0.0-0.5); EOS % 2.6 % (0.0-3.0); HEMATOCRIT 31.8 % (36.0-47.0); HEMOGLOBIN 10.9 g/dl (12.0-15.5); LYMPH # 1.9 10^3/uL (1.5-5.0); LYMPH % 59.6 % (24.0-44.0); MEAN CORPUSCULAR HGB CONC 34.3 g/dl (32.0-36.5); MEAN CORPUSCULAR VOLUME 84.6 fl (80.0-96.0); MONO # 0.5 10^3/uL (0.0-0.8); MONO % 16.3 % (2.0-8.0); NEUTROPHILS % 21.2 % (36.0-66.0); PLATELET COUNT, AUTOMATED 174 10^3/uL (150-450); RED BLOOD COUNT 3.76 10^6/uL (4.00-5.40); WHITE BLOOD COUNT 3.1 10^3/uL (4.0-10.0)
[2022-01-16] MEDS: IPRATROPIUM 0.5MG/ALBUTEROL 2.5MG INH SOL UD 3ML (DUONEB) NEB SCH ×3 (08:01→15:31)
[2022-01-16] MEDS: TIOTROPIUM INHALER/CAPSULE (SPIRIVA) INH SCH (08:01)
[2022-01-16 08:36] LABS: NEUTROPHILS # 0.7 10^3/uL (1.5-8.5)
[2022-01-16 08:37] LABS: ALBUMIN 2.9 GM/DL (3.2-5.2); ALT/SGPT 15 U/L (12-78); BILIRUBIN,TOTAL 0.3 MG/DL (0.2-1.0); BLOOD UREA NITROGEN 11 MG/DL (7-18); CALCIUM LEVEL 8.4 MG/DL (8.8-10.2); CARBON DIOXIDE LEVEL 24 MEQ/L (21-32); CHLORIDE LEVEL 105 MEQ/L (98-107); GLOMERULAR FILTRATION RATE > 60.0 (>39); GLUCOSE, FASTING 193 MG/DL (70-100); MAGNESIUM LEVEL 1.7 MG/DL (1.8-2.4); POTASSIUM SERUM 3.8 MEQ/L (3.5-5.1); SODIUM LEVEL 137 MEQ/L (136-145); TOTAL PROTEIN 5.6 GM/DL (6.4-8.2)
[2022-01-16 09:00] VITALS: BP 107/51
[2022-01-16] MEDS ORDERED: QUEtiapine FUMARATE 25 MG TAB PO SCH (09:00)
[2022-01-16] MEDS: atenoloL 25 MG TAB PO SCH (09:00)
[2022-01-16] MEDS: FERROUS SULFATE 325MG TAB PO SCH (09:34)
[2022-01-16] MEDS: guaiFENesin ER 600 MG TAB PO SCH (09:34)
[2022-01-16] MEDS: PANTOPRAZOLE 40MG TAB (PROTONIX) PO SCH (09:34)
[2022-01-16] MEDS: HEPARIN SOD (PORCINE) 5000UNITS/ML 1ML VIAL/SYRINGE SC SCH (09:34)
[2022-01-16] MEDS: FOLIC ACID 1 MG TAB PO SCH (09:34)
[2022-01-16] MEDS: CLOPIDOGREL 75 MG TAB PO SCH (09:34)
[2022-01-16] MEDS: oxyBUTYnin *DITROPAN XL* 5 MG TABCR PO SCH (09:34)
[2022-01-16 12:00] VITALS: BP 113/56
[2022-01-16] MEDS ORDERED: TRAM50TA2 PO ×2 (13:50→13:51)
[2022-01-16] MEDS ORDERED: HALO5TAB33 PO (13:50)
[2022-01-16] MEDS ORDERED: QUET1TAB17 PO (13:50)
== END 2022-01-16 15:46 | disposition home health service (06) ==
LOC: EDBD 15:10 → M ED 15:10 → M ED INP 15:11 → M ICU 01-15 10:58 → M PCU 01-15 18:15
PROVIDERS: ADMIT Internal Medicine; ATTEND Family Medicine
DX: T40.2X1A Poisoning by other opioids, accidental (unintentional), initial encounter (principal); F32.A Depression, unspecified; J44.9 Chronic obstructive pulmonary disease, unspecified; K21.9 Gastro-esophageal reflux disease without esophagitis; M54.50 Low back pain, unspecified; Z93.3 Colostomy status; Z96.0 Presence of urogenital implants; Z91.041 Radiographic dye allergy status; Z88.0 Allergy status to penicillin; Z88.5 Allergy status to narcotic agent; Z88.2 Allergy status to sulfonamides; Z88.8 Allergy status to other drugs, medicaments and biological substances; Z79.899 Other long term (current) drug therapy; Z79.51 Long term (current) use of inhaled steroids
CPT/HCPCS: 36415; 36600; 71045; 80048; 80053; 80143; 81001; 82077; 82803; 83735; 84100; 85025; 87631; 93005; 93041; 94640; 94660; 94760; 96361; 96365; 96366; 96372; 96375; 97116; 97162; 97165; 97530; 99285; G0378; J1644; J2310

== ENCOUNTER → 2022-07-01 | Outpatient (REF) | payer MEDICARE, MEDICAID ==
[~2022-07-01] MED LIST changes: +BENZ1LOZ2 PO; +BISA5TAB73 PO; +HALO5TAB33 PO; +QUET1TAB17 PO; -SORE15LO PO; +TRAM50TA2 PO
== END ==
LOC: M SFHCADAM 13:40
PROVIDERS: ATTEND Physician Assistant
DX: Z53.20 Procedure and treatment not carried out because of patient's decision for unspecified reasons (principal); K76.0 Fatty (change of) liver, not elsewhere classified; J44.9 Chronic obstructive pulmonary disease, unspecified; G89.29 Other chronic pain

== ENCOUNTER → 2022-07-20 | Outpatient (CLI) | payer MEDICARE, MEDICAID ==
[~2022-07-20] MED LIST changes: +DIPH-435 PO; -DIPH25CA32 PO
[2022-07-20 14:34] LABS: HEMATOCRIT 36.7 % (36.0-47.0); HEMOGLOBIN 12.8 g/dl (12.0-15.5); MEAN CORPUSCULAR HEMOGLOBIN 30.5 pg (27.0-33.0); MEAN CORPUSCULAR HGB CONC 34.9 g/dl (32.0-36.5); MEAN CORPUSCULAR VOLUME 87.4 fl (80.0-96.0); PLATELET COUNT, AUTOMATED 181 10^3/uL (150-450); WHITE BLOOD COUNT 3.9 10^3/uL (4.0-10.0)
[2022-07-20 14:54] LABS: THYROID STIMULATING HORMONE 1.386 uIU/ML (0.55-4.78)
[2022-07-20 14:55] LABS: ALKALINE PHOSPHATASE 79 U/L (46-116); ALT/SGPT 11 U/L (7.0-40); AST/SGOT 14 U/L (<34); BILIRUBIN,TOTAL 0.4 MG/DL (0.3-1.2); BLOOD UREA NITROGEN 11 MG/DL (9-23); CALCIUM LEVEL 8.8 MG/DL (8.3-10.6); CARBON DIOXIDE LEVEL 29 MMOL/L (20-31); CHLORIDE LEVEL 96 MMOL/L (98-107); CREATININE FOR GFR 0.78 MG/DL (0.55-1.30); GLOMERULAR FILTRATION RATE > 60.0 (>39); GLUCOSE, FASTING 188 MG/DL (74-106); POTASSIUM SERUM 3.6 MMOL/L (3.5-5.1); SODIUM LEVEL 133 MMOL/L (136-145); TOTAL PROTEIN 6.3 G/DL (5.7-8.2)
[2022-07-20 14:56] LABS: VITAMIN B12 LEVEL 363 PG/ML (211-911)
[2022-07-20 15:05] LABS: FOLATE > 24.0 NG/ML (>5.4)
[2022-07-20 15:46] LABS: HEMOGLOBIN A1c 5.4 % (4.0-6.0)
== END ==
LOC: M LAB 12:56
PROVIDERS: ATTEND Physician Assistant
DX: E11.40 Type 2 diabetes mellitus with diabetic neuropathy, unspecified (principal); K76.0 Fatty (change of) liver, not elsewhere classified; J44.9 Chronic obstructive pulmonary disease, unspecified; G89.29 Other chronic pain; F17.211 Nicotine dependence, cigarettes, in remission

== ENCOUNTER → 2022-07-20 | Outpatient (CLI) | payer MEDICARE, MEDICAID | LOC: M RAD 12:40 | PROVIDERS: ATTEND Physician Assistant | DX: Z12.2 Encounter for screening for malignant neoplasm of respiratory organs (principal); F17.211 Nicotine dependence, cigarettes, in remission; R91.8 Other nonspecific abnormal finding of lung field; J84.10 Pulmonary fibrosis, unspecified ==

== ENCOUNTER → 2022-10-30 | Outpatient (REF) | payer MEDICARE, MEDICAID ==
[~2022-10-30] MED LIST changes: -OXYC-404 PO; +OXYC20TA64 PO
[2022-10-30 13:50] LABS: APPEARANCE, URINE CLOUDY (CLEAR); BACTERIA, URINE AUTO 1+ (NEGATIVE); BILIRUBIN, URINE AUTO NEGATIVE (NEGATIVE); BLOOD, URINE BLOOD 3+ (NEGATIVE); COLOR, URINE AMBER (YELLOW); GLUCOSE, URINE (UA) AUTO NEGATIVE (NEGATIVE); KETONE, URINE AUTO NEGATIVE (NEGATIVE); LEUKOCYTE ESTERASE, URINE AUTO 3+ (NEGATIVE); MUCUS, URINE SMALL (NEGATIVE); NITRITE, URINE AUTO POSITIVE (NEGATIVE); PROTEIN, URINE AUTO 2+ mg/dL (NEGATIVE); RBC, URINE AUTO 181 /HPF (0-3); SPECIFIC GRAVITY URINE AUTO 1.019 (1.002-1.035); SQUAMOUS EPITHELIAL CELL UR AU 2 /HPF (0-6); UROBILINOGEN, URINE AUTO 0.2 mg/dL (0.0-2.0); WBC, URINE AUTO 166 /HPF (0-3)
== END ==
LOC: M SMT 12:56
PROVIDERS: ATTEND Physician Assistant
DX: R30.0 Dysuria (principal)

== ENCOUNTER → 2022-12-24 | Outpatient (CLI) | payer MEDICARE, MEDICAID | LOC: M ADAMS 14:21 | PROVIDERS: ATTEND Physician Assistant | DX: R91.8 Other nonspecific abnormal finding of lung field (principal) ==

== ENCOUNTER → 2023-01-26 | Outpatient (CLI) | payer MEDICARE, MEDICAID ==
[~2023-01-26] MED LIST changes: +ALBU8.5H; -GABA-283 PO; +GABA-284 PO; +PREG75CA2 PO; +SUCR1ORA; +VARE1TAB2 PO
== END ==
LOC: M PAIN 13:00
PROVIDERS: ATTEND Nurse Practitioner Family
DX: M79.18 Myalgia, other site (principal); G89.29 Other chronic pain; J44.9 Chronic obstructive pulmonary disease, unspecified; F32.A Depression, unspecified; G47.00 Insomnia, unspecified; I12.9 Hypertensive chronic kidney disease with stage 1 through stage 4 chronic kidney disease, or unspecified chronic kidney disease; E78.5 Hyperlipidemia, unspecified; K21.9 Gastro-esophageal reflux disease without esophagitis; M81.0 Age-related osteoporosis without current pathological fracture; N18.9 Chronic kidney disease, unspecified; K76.0 Fatty (change of) liver, not elsewhere classified; E11.42 Type 2 diabetes mellitus with diabetic polyneuropathy; I25.10 Atherosclerotic heart disease of native coronary artery without angina pectoris; F17.210 Nicotine dependence, cigarettes, uncomplicated; Z79.02 Long term (current) use of antithrombotics/antiplatelets; Z79.899 Other long term (current) drug therapy; Z88.2 Allergy status to sulfonamides; Z88.6 Allergy status to analgesic agent; Z88.0 Allergy status to penicillin; Z88.8 Allergy status to other drugs, medicaments and biological substances; Z88.5 Allergy status to narcotic agent; Z91.041 Radiographic dye allergy status; M85.88 Other specified disorders of bone density and structure, other site; M47.817 Spondylosis without myelopathy or radiculopathy, lumbosacral region; Z96.642 Presence of left artificial hip joint
CPT/HCPCS: 72110; 72190; G0463

== ENCOUNTER → 2023-01-26 | Outpatient (CLI) | payer MEDICARE, MEDICAID | LOC: M RAD 14:31 | PROVIDERS: ATTEND Nurse Practitioner Family | DX: M79.10 Myalgia, unspecified site (principal); M85.88 Other specified disorders of bone density and structure, other site; M47.817 Spondylosis without myelopathy or radiculopathy, lumbosacral region; Z96.642 Presence of left artificial hip joint ==

== ENCOUNTER → 2023-01-28 | Outpatient (CLI) | payer MEDICARE, MEDICAID ==
[~2023-01-28] MED LIST changes: -ALBU8.5H; +GABA-283 PO; -GABA-284 PO; -PREG75CA2 PO; -SUCR1ORA; -VARE1TAB2 PO
== END ==
LOC: M RAD 15:05
PROVIDERS: ATTEND Physician Assistant
DX: R05.3 Chronic cough (principal); R93.89 Abnormal findings on diagnostic imaging of other specified body structures; F17.218 Nicotine dependence, cigarettes, with other nicotine-induced disorders

== ENCOUNTER 2023-02-15 11:05 | Day surgery (SDC) | payer MEDICARE, MEDICAID ==
[~2023-02-15] VITALS: Ht 172.7 cm; Wt 70.1 kg
[~2023-02-15 11:05] MED LIST changes: +ALBU8.5H; +BSS IRRIG/VANCO(10MG)/TOBRA(5MG)/EPINEPH(1:1000-0.5CC)500ML BAG-ORONLY IR ONE; +CYCLOPENTOLATE 1% OPHTH SOLN 2ML BTL OS SCH; -GABA-283 PO; +GABA-284 PO; +LIDOCAINE 1% SDV 5ML VIAL As Ordered ONE; +LIDOCAINE 3.5 % 1ML OPHTH TOPICAL GEL OU ONE; +PHENYLEPHRINE 10% OPHTH SOL 5ML OS PRN; +PHENYLEPHRINE 2.5% OPHTH SOL 2ML OS SCH; +PREG75CA2 PO; +SUCR1ORA; +TROPICAMIDE 1% OPHTH SOLN 15ML OS SCH; +VARE1TAB2 PO
[2023-02-15] MEDS ORDERED: MIDAZOLAM INJ 2MG/2ML VIAL As Ordered ONE (11:15)
[2023-02-15] MEDS ORDERED: fentaNYL 100 MCG/2 ML INJECTION As Ordered ONE (11:16)
[2023-02-15] MEDS ORDERED: TOBRADEX OPHTH SUSP 2.5 ML As Ordered ONE (11:31)
[2023-02-15 12:40] VITALS: BP 104/69; TEMP 97.6; O2SAT 97
== END 2023-02-15 12:45 | disposition home or self-care (01) ==
LOC: M SDC 11:05
PROVIDERS: ATTEND Ophthalmology
DX: H25.12 Age-related nuclear cataract, left eye (principal); I25.10 Atherosclerotic heart disease of native coronary artery without angina pectoris; I10 Essential (primary) hypertension; E78.5 Hyperlipidemia, unspecified; K57.92 Diverticulitis of intestine, part unspecified, without perforation or abscess without bleeding; B18.2 Chronic viral hepatitis C; Z91.040 Latex allergy status; Z88.2 Allergy status to sulfonamides; Z88.8 Allergy status to other drugs, medicaments and biological substances; D64.9 Anemia, unspecified; Z79.899 Other long term (current) drug therapy
CPT/HCPCS: 66984; J2250; J3010; V2632

== ENCOUNTER 2023-02-22 11:03 | Day surgery (SDC) | payer MEDICARE, MEDICAID ==
[~2023-02-22] VITALS: Ht 172.7 cm; Wt 71.1 kg
[~2023-02-22 11:03] MED LIST changes: +CYCLOPENTOLATE 1% OPHTH SOLN 2ML BTL OD SCH; -CYCLOPENTOLATE 1% OPHTH SOLN 2ML BTL OS SCH; +MIDAZOLAM INJ 2MG/2ML VIAL As Ordered ONE; +PHENYLEPHRINE 10% OPHTH SOL 5ML OD PRN; -PHENYLEPHRINE 10% OPHTH SOL 5ML OS PRN; +PHENYLEPHRINE 2.5% OPHTH SOL 2ML OD SCH; -PHENYLEPHRINE 2.5% OPHTH SOL 2ML OS SCH; +TROPICAMIDE 1% OPHTH SOLN 15ML OD SCH; -TROPICAMIDE 1% OPHTH SOLN 15ML OS SCH; +fentaNYL 100 MCG/2 ML INJECTION As Ordered ONE
[2023-02-22] MEDS ORDERED: OFLOXACIN 0.3 % (OCUFLOX) OPTH SOL 5ML OD ONE (12:00)
[2023-02-22 13:18] VITALS: BP 147/79; TEMP 97.8; O2SAT 98
== END 2023-02-22 13:26 | disposition home or self-care (01) ==
LOC: M SDC 11:03
PROVIDERS: ATTEND Ophthalmology
DX: H25.11 Age-related nuclear cataract, right eye (principal); I25.10 Atherosclerotic heart disease of native coronary artery without angina pectoris; I10 Essential (primary) hypertension; E78.5 Hyperlipidemia, unspecified; E11.9 Type 2 diabetes mellitus without complications; K57.92 Diverticulitis of intestine, part unspecified, without perforation or abscess without bleeding; J44.9 Chronic obstructive pulmonary disease, unspecified; F17.210 Nicotine dependence, cigarettes, uncomplicated; K21.9 Gastro-esophageal reflux disease without esophagitis; F41.9 Anxiety disorder, unspecified; F32.A Depression, unspecified; Z79.51 Long term (current) use of inhaled steroids; Z79.899 Other long term (current) drug therapy; Z91.041 Radiographic dye allergy status; Z88.0 Allergy status to penicillin; Z88.2 Allergy status to sulfonamides; Z88.5 Allergy status to narcotic agent; Z88.8 Allergy status to other drugs, medicaments and biological substances
CPT/HCPCS: 66984; J2250; J3010; V2632

== ENCOUNTER → 2023-03-16 | Outpatient (CLI) | payer MEDICARE, MEDICAID ==
[~2023-03-16] MED LIST changes: -BSS IRRIG/VANCO(10MG)/TOBRA(5MG)/EPINEPH(1:1000-0.5CC)500ML BAG-ORONLY IR ONE; -CYCLOPENTOLATE 1% OPHTH SOLN 2ML BTL OD SCH; -LIDOCAINE 1% SDV 5ML VIAL As Ordered ONE; -LIDOCAINE 3.5 % 1ML OPHTH TOPICAL GEL OU ONE; +MECL-209 PO; -MECL1TAB31 PO; -MIDAZOLAM INJ 2MG/2ML VIAL As Ordered ONE; -PHENYLEPHRINE 10% OPHTH SOL 5ML OD PRN; -PHENYLEPHRINE 2.5% OPHTH SOL 2ML OD SCH; -PREG75CA2 PO; +PREG75CA3 PO; -TROPICAMIDE 1% OPHTH SOLN 15ML OD SCH; -fentaNYL 100 MCG/2 ML INJECTION As Ordered ONE
== END ==
LOC: M PLAIMG 13:02
PROVIDERS: ATTEND Physician Assistant
DX: R91.8 Other nonspecific abnormal finding of lung field (principal)

== ENCOUNTER → 2023-03-19 | Outpatient (REF) | payer MEDICARE, MEDICAID ==
[2023-03-19 17:40] LABS: APPEARANCE, URINE HAZY (CLEAR); BACTERIA, URINE AUTO 2+ (NEGATIVE); BILIRUBIN, URINE AUTO NEGATIVE (NEGATIVE); BLOOD, URINE BLOOD 3+ (NEGATIVE); COLOR, URINE YELLOW (YELLOW); GLUCOSE, URINE (UA) AUTO NEGATIVE (NEGATIVE); KETONE, URINE AUTO NEGATIVE (NEGATIVE); LEUKOCYTE ESTERASE, URINE AUTO 3+ (NEGATIVE); MUCUS, URINE SMALL (NEGATIVE); NITRITE, URINE AUTO NEGATIVE (NEGATIVE); PROTEIN, URINE AUTO 1+ mg/dL (NEGATIVE); RBC, URINE AUTO 153 /HPF (0-3); SPECIFIC GRAVITY URINE AUTO 1.013 (1.002-1.035); SQUAMOUS EPITHELIAL CELL UR AU 5 /HPF (0-6); UROBILINOGEN, URINE AUTO 0.2 mg/dL (0.0-2.0); WBC, URINE AUTO 73 /HPF (0-3)
== END ==
LOC: M SMT 16:47
PROVIDERS: ATTEND Physician Assistant
DX: R30.0 Dysuria (principal)

== ENCOUNTER → 2023-03-23 | Outpatient (CLI) | payer MEDICARE, MEDICAID ==
[~2023-03-23] MED LIST changes: +diazePAM 5MG TABLET As Ordered ONE; +oxyCODONE 5MG TAB As Ordered ONE
== END ==
LOC: M PAIN 14:15
PROVIDERS: ATTEND Anesthesiology
DX: M79.18 Myalgia, other site (principal); G89.29 Other chronic pain; J44.9 Chronic obstructive pulmonary disease, unspecified; I10 Essential (primary) hypertension; K21.9 Gastro-esophageal reflux disease without esophagitis; F17.210 Nicotine dependence, cigarettes, uncomplicated; Z86.14 Personal history of Methicillin resistant Staphylococcus aureus infection; Z86.59 Personal history of other mental and behavioral disorders; Z96.642 Presence of left artificial hip joint; Z88.0 Allergy status to penicillin; Z88.1 Allergy status to other antibiotic agents; Z88.5 Allergy status to narcotic agent; Z88.6 Allergy status to analgesic agent; Z88.8 Allergy status to other drugs, medicaments and biological substances; Z91.041 Radiographic dye allergy status; Z79.899 Other long term (current) drug therapy
CPT/HCPCS: 20552; J0665

== ENCOUNTER 2023-04-26 20:35 | Inpatient (IN) | payer MEDICARE, MEDICAID ==
[~2023-04-26] VITALS: Ht 172.7 cm; Wt 78.3 kg
[~2023-04-26 20:35] MED LIST changes: -OXYB5TAB10 PO; +OXYB5TAB11 PO; -diazePAM 5MG TABLET As Ordered ONE; -oxyCODONE 5MG TAB As Ordered ONE
[2023-04-26] MEDS: guaiFENesin ER TABLET 600 MG TAB PO SCH (21:00)
[2023-04-26] MEDS ORDERED: ACETAMINOPHEN TAB 650MG DOSE (2X325MG) PO ONE (21:00)
[2023-04-26 21:35] LABS: BASO % 0.2 % (0.0-1.0); EOS % 0.1 % (0.0-3.0); HEMATOCRIT 33.4 % (36.0-47.0); HEMOGLOBIN 12.2 g/dl (12.0-15.5); LYMPH # 0.7 10^3/uL (1.5-5.0); LYMPH % 7.1 % (24.0-44.0); MEAN CORPUSCULAR HEMOGLOBIN 31.4 pg (27.0-33.0); MEAN CORPUSCULAR HGB CONC 36.5 g/dl (32.0-36.5); MEAN CORPUSCULAR VOLUME 85.9 fl (80.0-96.0); MONO # 1.1 10^3/uL (0.0-0.8); NEUTROPHILS # 8.2 10^3/uL (1.5-8.5); NEUTROPHILS % 81.2 % (36.0-66.0); PLATELET COUNT, AUTOMATED 153 10^3/uL (150-450); RED BLOOD COUNT 3.89 10^6/uL (4.00-5.40); WHITE BLOOD COUNT 10.2 10^3/uL (4.0-10.0)
[2023-04-26 21:39] LABS: CK-MB VALUE MASS 3.5 NG/ML (<3.6)
[2023-04-26 21:41] LABS: ALKALINE PHOSPHATASE 77 U/L (46-116); ALT/SGPT 11 U/L (7.0-40); AST/SGOT 12 U/L (<34); BILIRUBIN,DIRECT 0.6 MG/DL (<0.4); BLOOD UREA NITROGEN 13 MG/DL (9-23); CARBON DIOXIDE LEVEL 25 MMOL/L (20-31); CHLORIDE LEVEL 97 MMOL/L (98-107); CREATININE FOR GFR 0.77 MG/DL (0.55-1.30); GLOMERULAR FILTRATION RATE > 60.0 (>39); GLUCOSE, FASTING 221 MG/DL (74-106); POTASSIUM SERUM 3.8 MMOL/L (3.5-5.1); SODIUM LEVEL 133 MMOL/L (136-145); TOTAL PROTEIN 6.5 G/DL (5.7-8.2)
[2023-04-26 21:44] LABS: THYROID STIMULATING HORMONE 1.131 uIU/ML (0.55-4.78)
[2023-04-26 21:48] LABS: CPK CREATINE PHOSPHOKINASE 55 U/L (34-145); MB/CK RELATIVE INDEX 6.36 (< OR =4)
[2023-04-26] MEDS ORDERED: NS 1,000 ML IV ONE (23:55)
[2023-04-27] VITALS (30 sets, daily range): BP systolic 118–153; BP diastolic 59–66; TEMP 98.1–98.6; O2SAT 92–98
[2023-04-27] MEDS ORDERED: IBUPROFEN 400MG TAB PO ONE
[2023-04-27] MEDS ORDERED: ALBUTEROL SULFATE 2.5MG/0.5ML INH NEB SOLN NEB PRN (01:00)
[2023-04-27] MEDS ORDERED: LevoFLOXacin IV 750 MG in IV 1 EA IV ONE (01:00)
[2023-04-27] MEDS ORDERED: LR 1,000 ML IV SCH (01:00)
[2023-04-27] MEDS ORDERED: MUCI600T31 PO (01:32)
[2023-04-27] MEDS ORDERED: SUCR1ORA2 PO (01:32)
[2023-04-27] MEDS ORDERED: LIDO1PAD TOP (01:32)
[2023-04-27] MEDS ORDERED: SPIR1CAP INH (01:32)
[2023-04-27] MEDS ORDERED: ALBU8.5H INH (01:32)
[2023-04-27] MEDS ORDERED: HOME MED LIST COMPLETE! XX SCH (01:35)
[2023-04-27] MEDS: IPRATROPIUM 0.5MG/ALBUTEROL 2.5MG INH SOL UD 3ML (DUONEB) NEB SCH ×4 (02:34→19:04)
[2023-04-27] MEDS: traZODone 100 MG TAB PO SCH ×2 (03:46→21:55)
[2023-04-27] MEDS: CEFEPIME HCL 2 GM in D5W MINI-BAG PLUS 50 ML IV SCH ×2 (03:51→11:59)
[2023-04-27] MEDS: DOXYCYCLINE HYCLATE 100MG TABLET PO SCH ×2 (03:51→21:56)
[2023-04-27] MEDS: MIRTAZAPINE 15 MG TAB PO SCH ×2 (03:51→21:56)
[2023-04-27] MEDS: MONTELUKAST 10 MG TAB PO SCH ×2 (03:51→21:56)
[2023-04-27 05:52] LABS: HEMATOCRIT 29.7 % (36.0-47.0); HEMOGLOBIN 10.6 g/dl (12.0-15.5); MEAN CORPUSCULAR HEMOGLOBIN 30.5 pg (27.0-33.0); MEAN CORPUSCULAR HGB CONC 35.7 g/dl (32.0-36.5); MEAN CORPUSCULAR VOLUME 85.6 fl (80.0-96.0); PLATELET COUNT, AUTOMATED 104 10^3/uL (150-450); RED BLOOD COUNT 3.47 10^6/uL (4.00-5.40); WHITE BLOOD COUNT 5.3 10^3/uL (4.0-10.0)
[2023-04-27 06:19] LABS: ALBUMIN 2.6 G/DL (3.2-5.2); ALKALINE PHOSPHATASE 69 U/L (46-116); ALT/SGPT < 9 U/L (7.0-40); AST/SGOT 13 U/L (<34); BILIRUBIN,TOTAL 0.8 MG/DL (0.3-1.2); BLOOD UREA NITROGEN 13 MG/DL (9-23); CALCIUM LEVEL 7.4 MG/DL (8.3-10.6); CARBON DIOXIDE LEVEL 25 MMOL/L (20-31); CHLORIDE LEVEL 98 MMOL/L (98-107); CREATININE FOR GFR 0.69 MG/DL (0.55-1.30); GLOMERULAR FILTRATION RATE > 60.0 (>39); GLUCOSE, FASTING 155 MG/DL (74-106); MAGNESIUM LEVEL 1.4 MG/DL (1.8-2.4); POTASSIUM SERUM 3.1 MMOL/L (3.5-5.1); SODIUM LEVEL 129 MMOL/L (136-145); TOTAL PROTEIN 5.6 G/DL (5.7-8.2)
[2023-04-27] MEDS: TIOTROPIUM INHALER/CAPSULE (SPIRIVA) INH SCH (07:14)
[2023-04-27] MEDS: ADVAIR HFA 230/21MCG INHALER INH SCH ×2 (07:14→19:04)
[2023-04-27] MEDS: NS 1,000 ML IV SCH ×2 (07:22→20:44)
[2023-04-27] MEDS ORDERED: MAG SULF 1GM/100ML (MAG RUN) 1 GM in IV 1 EA IV ONE (08:00)
[2023-04-27] MEDS: ENOXAPARIN 40MG/0.4ML SYRINGE (J1650 PER 10MG) SC SCH ×2 (09:00→09:04)
[2023-04-27] MEDS: LIDOCAINE 5% (LIDODERM) PATCH TOP SCH (09:01)
[2023-04-27] MEDS: FERROUS SULFATE 325MG TAB PO SCH (09:02)
[2023-04-27] MEDS: METHENAMINE HIPPURATE 1GM TABLET PO SCH ×2 (09:02→21:56)
[2023-04-27] MEDS: FOLIC ACID 1MG TAB PO SCH ×2 (09:02→21:55)
[2023-04-27] MEDS: CLOPIDOGREL 75 MG TAB PO SCH (09:02)
[2023-04-27] MEDS: guaiFENesin ER TABLET 600 MG TAB PO SCH ×2 (09:03→21:55)
[2023-04-27] MEDS: oxyBUTYnin *DITROPAN XL* 5 MG TABCR PO SCH ×2 (09:10→21:57)
[2023-04-27] MEDS: SUCRALFATE SUSP 1GM/10ML UD PO SCH ×2 (09:10→21:58)
[2023-04-27] MEDS: VARENICLINE 1MG TABLET PO SCH (09:10)
[2023-04-27] MEDS: POTASSIUM CHLORIDE 10MEQ SR TABLET PO SCH ×2 (09:10→21:57)
[2023-04-27] MEDS: PREGABALIN 75 MG CAP(LYRICA) PO SCH ×3 (09:10→21:55)
[2023-04-27] MEDS: PANTOPRAZOLE 40MG TAB (PROTONIX) PO SCH (09:11)
[2023-04-27 14:07] LABS: PROCALCITONIN 0.27 ng/ml
[2023-04-27] MEDS: cefTRIAXone SOD 1 GM in D5W MINI-BAG PLUS 50 ML IV SCH (20:44)
[2023-04-27] MEDS: SIMVASTATIN 20 MG TAB PO SCH (21:57)
[2023-04-28] VITALS (14 sets, daily range): BP systolic 110–158; BP diastolic 53–78; TEMP 96.9–101.8; O2SAT 91–97
[2023-04-28] MEDS ORDERED: LevoFLOXacin IV 750 MG in IV 1 EA IV SCH (01:00)
[2023-04-28] MEDS: IPRATROPIUM 0.5MG/ALBUTEROL 2.5MG INH SOL UD 3ML (DUONEB) NEB SCH ×4 (01:12→18:54)
[2023-04-28] MEDS: ACETAMINOPHEN TAB 650MG DOSE (2X325MG) PO PRN (03:38)
[2023-04-28] MEDS: DEXTROMETHORPHAN 60MG/10ML SUSP 90ML BTL(DELSYM) PO PRN (03:58)
[2023-04-28 04:06] LABS: HEMATOCRIT 29.9 % (36.0-47.0); HEMOGLOBIN 10.5 g/dl (12.0-15.5); MEAN CORPUSCULAR HEMOGLOBIN 30.7 pg (27.0-33.0); MEAN CORPUSCULAR HGB CONC 35.1 g/dl (32.0-36.5); MEAN CORPUSCULAR VOLUME 87.4 fl (80.0-96.0); PLATELET COUNT, AUTOMATED 108 10^3/uL (150-450); RED BLOOD COUNT 3.42 10^6/uL (4.00-5.40); WHITE BLOOD COUNT 3.5 10^3/uL (4.0-10.0)
[2023-04-28 04:33] LABS: ALBUMIN 2.4 G/DL (3.2-5.2); ALKALINE PHOSPHATASE 64 U/L (46-116); ALT/SGPT 11 U/L (7.0-40); AST/SGOT 12 U/L (<34); BILIRUBIN,TOTAL 0.4 MG/DL (0.3-1.2); BLOOD UREA NITROGEN 9 MG/DL (9-23); CALCIUM LEVEL 7.7 MG/DL (8.3-10.6); CARBON DIOXIDE LEVEL 24 MMOL/L (20-31); CHLORIDE LEVEL 105 MMOL/L (98-107); CREATININE FOR GFR 0.74 MG/DL (0.55-1.30); GLOMERULAR FILTRATION RATE > 60.0 (>39); GLUCOSE, FASTING 205 MG/DL (74-106); POTASSIUM SERUM 3.9 MMOL/L (3.5-5.1); SODIUM LEVEL 137 MMOL/L (136-145); TOTAL PROTEIN 5.4 G/DL (5.7-8.2)
[2023-04-28] MEDS: TIOTROPIUM INHALER/CAPSULE (SPIRIVA) INH SCH (07:07)
[2023-04-28] MEDS: ADVAIR HFA 230/21MCG INHALER INH SCH ×2 (07:07→18:54)
[2023-04-28] MEDS: SUCRALFATE SUSP 1GM/10ML UD PO SCH ×2 (10:32→20:31)
[2023-04-28] MEDS: VARENICLINE 1MG TABLET PO SCH (10:32)
[2023-04-28] MEDS: PREGABALIN 75 MG CAP(LYRICA) PO SCH ×3 (10:32→20:31)
[2023-04-28] MEDS: DOXYCYCLINE HYCLATE 100MG TABLET PO SCH ×2 (10:32→20:31)
[2023-04-28] MEDS: guaiFENesin ER TABLET 600 MG TAB PO SCH ×2 (10:33→20:31)
[2023-04-28] MEDS: oxyBUTYnin *DITROPAN XL* 5 MG TABCR PO SCH ×2 (10:33→20:31)
[2023-04-28] MEDS: METHENAMINE HIPPURATE 1GM TABLET PO SCH ×2 (10:34→20:31)
[2023-04-28] MEDS: FOLIC ACID 1MG TAB PO SCH ×2 (10:34→20:31)
[2023-04-28] MEDS: FERROUS SULFATE 325MG TAB PO SCH (10:34)
[2023-04-28] MEDS: CLOPIDOGREL 75 MG TAB PO SCH (10:34)
[2023-04-28] MEDS: POTASSIUM CHLORIDE 10MEQ SR TABLET PO SCH ×2 (10:34→20:31)
[2023-04-28] MEDS: ENOXAPARIN 40MG/0.4ML SYRINGE (J1650 PER 10MG) SC SCH (10:35)
[2023-04-28] MEDS: PANTOPRAZOLE 40MG TAB (PROTONIX) PO SCH (10:35)
[2023-04-28] MEDS: LIDOCAINE 5% (LIDODERM) PATCH TOP SCH (10:35)
[2023-04-28] MEDS: MONTELUKAST 10 MG TAB PO SCH (20:31)
[2023-04-28] MEDS: SIMVASTATIN 20 MG TAB PO SCH (20:31)
[2023-04-28] MEDS: traZODone 100 MG TAB PO SCH (20:31)
[2023-04-28] MEDS: MIRTAZAPINE 15 MG TAB PO SCH (20:32)
[2023-04-28] MEDS: cefTRIAXone SOD 1 GM in D5W MINI-BAG PLUS 50 ML IV SCH (20:32)
[2023-04-29] VITALS (15 sets, daily range): BP systolic 112–147; BP diastolic 56–76; TEMP 97.5–99.8; O2SAT 96–100
[2023-04-29] MEDS: IPRATROPIUM 0.5MG/ALBUTEROL 2.5MG INH SOL UD 3ML (DUONEB) NEB SCH ×4 (00:12→19:42)
[2023-04-29] MEDS: DEXTROMETHORPHAN 60MG/10ML SUSP 90ML BTL(DELSYM) PO PRN ×2 (02:43→15:29)
[2023-04-29] MEDS: ACETAMINOPHEN TAB 650MG DOSE (2X325MG) PO PRN (02:44)
[2023-04-29 06:10] LABS: HEMATOCRIT 30.4 % (36.0-47.0); HEMOGLOBIN 10.4 g/dl (12.0-15.5); MEAN CORPUSCULAR HEMOGLOBIN 30.4 pg (27.0-33.0); MEAN CORPUSCULAR HGB CONC 34.2 g/dl (32.0-36.5); MEAN CORPUSCULAR VOLUME 88.9 fl (80.0-96.0); PLATELET COUNT, AUTOMATED 117 10^3/uL (150-450); RED BLOOD COUNT 3.42 10^6/uL (4.00-5.40); WHITE BLOOD COUNT 2.7 10^3/uL (4.0-10.0)
[2023-04-29 06:32] LABS: ALBUMIN 2.4 G/DL (3.2-5.2); ALKALINE PHOSPHATASE 66 U/L (46-116); ALT/SGPT 14 U/L (7.0-40); AST/SGOT 10 U/L (<34); BILIRUBIN,TOTAL 0.3 MG/DL (0.3-1.2); BLOOD UREA NITROGEN 11 MG/DL (9-23); CALCIUM LEVEL 8.2 MG/DL (8.3-10.6); CARBON DIOXIDE LEVEL 26 MMOL/L (20-31); CHLORIDE LEVEL 107 MMOL/L (98-107); CREATININE FOR GFR 0.73 MG/DL (0.55-1.30); GLOMERULAR FILTRATION RATE > 60.0 (>39); GLUCOSE, FASTING 167 MG/DL (74-106); MAGNESIUM LEVEL 1.5 MG/DL (1.8-2.4); POTASSIUM SERUM 4.3 MMOL/L (3.5-5.1); SODIUM LEVEL 139 MMOL/L (136-145); TOTAL PROTEIN 5.5 G/DL (5.7-8.2)
[2023-04-29] MEDS: TIOTROPIUM INHALER/CAPSULE (SPIRIVA) INH SCH (07:43)
[2023-04-29] MEDS: ADVAIR HFA 230/21MCG INHALER INH SCH ×2 (07:43→19:42)
[2023-04-29] MEDS: guaiFENesin ER TABLET 600 MG TAB PO SCH ×2 (08:39→20:17)
[2023-04-29] MEDS: POTASSIUM CHLORIDE 10MEQ SR TABLET PO SCH ×2 (08:39→20:17)
[2023-04-29] MEDS: CLOPIDOGREL 75 MG TAB PO SCH (08:39)
[2023-04-29] MEDS: oxyBUTYnin *DITROPAN XL* 5 MG TABCR PO SCH ×2 (08:39→20:17)
[2023-04-29] MEDS: DOXYCYCLINE HYCLATE 100MG TABLET PO SCH ×2 (08:39→20:18)
[2023-04-29] MEDS: FERROUS SULFATE 325MG TAB PO SCH (08:40)
[2023-04-29] MEDS: FOLIC ACID 1MG TAB PO SCH ×2 (08:40→20:18)
[2023-04-29] MEDS: PANTOPRAZOLE 40MG TAB (PROTONIX) PO SCH (08:40)
[2023-04-29] MEDS: MAGNESIUM OXIDE 400MG TAB (MAG-OX) PO SCH ×2 (08:40→20:17)
[2023-04-29] MEDS: PREGABALIN 75 MG CAP(LYRICA) PO SCH ×3 (08:40→20:18)
[2023-04-29] MEDS: VARENICLINE 1MG TABLET PO SCH (08:40)
[2023-04-29] MEDS: ENOXAPARIN 40MG/0.4ML SYRINGE (J1650 PER 10MG) SC SCH (08:40)
[2023-04-29] MEDS: METHENAMINE HIPPURATE 1GM TABLET PO SCH ×2 (08:40→20:18)
[2023-04-29] MEDS: LIDOCAINE 5% (LIDODERM) PATCH TOP SCH (08:43)
[2023-04-29] MEDS: SUCRALFATE SUSP 1GM/10ML UD PO SCH ×2 (08:43→20:16)
[2023-04-29] MEDS: CEFEPIME HCL 1 GM in D5W MINI-BAG PLUS 50 ML IV SCH ×2 (09:09→20:18)
[2023-04-29] MEDS: traZODone 100 MG TAB PO SCH (20:17)
[2023-04-29] MEDS: SIMVASTATIN 20 MG TAB PO SCH (20:18)
[2023-04-29] MEDS: MIRTAZAPINE 15 MG TAB PO SCH (20:18)
[2023-04-29] MEDS: MONTELUKAST 10 MG TAB PO SCH (20:18)
[2023-04-30] MEDS: ACETAMINOPHEN TAB 650MG DOSE (2X325MG) PO PRN (01:11)
[2023-04-30] MEDS: IPRATROPIUM 0.5MG/ALBUTEROL 2.5MG INH SOL UD 3ML (DUONEB) NEB SCH ×3 (02:29→13:07)
[2023-04-30 03:37] VITALS: BP 135/64; TEMP 98.6; O2SAT 98
[2023-04-30 06:18] LABS: HEMOGLOBIN 10.4 g/dl (12.0-15.5); MEAN CORPUSCULAR HEMOGLOBIN 30.5 pg (27.0-33.0); MEAN CORPUSCULAR HGB CONC 34.7 g/dl (32.0-36.5); PLATELET COUNT, AUTOMATED 136 10^3/uL (150-450); RED BLOOD COUNT 3.41 10^6/uL (4.00-5.40); WHITE BLOOD COUNT 2.7 10^3/uL (4.0-10.0)
[2023-04-30] MEDS: ADVAIR HFA 230/21MCG INHALER INH SCH (07:24)
[2023-04-30] MEDS: TIOTROPIUM INHALER/CAPSULE (SPIRIVA) INH SCH (07:24)
[2023-04-30 07:36] VITALS: BP 125/85; TEMP 97.4; O2SAT 98
[2023-04-30] MEDS: MAGNESIUM OXIDE 400MG TAB (MAG-OX) PO SCH (09:52)
[2023-04-30] MEDS: CEFEPIME HCL 1 GM in D5W MINI-BAG PLUS 50 ML IV SCH (09:52)
[2023-04-30] MEDS: VARENICLINE 1MG TABLET PO SCH (09:53)
[2023-04-30] MEDS: oxyBUTYnin *DITROPAN XL* 5 MG TABCR PO SCH (09:53)
[2023-04-30] MEDS: PANTOPRAZOLE 40MG TAB (PROTONIX) PO SCH (09:54)
[2023-04-30] MEDS: METHENAMINE HIPPURATE 1GM TABLET PO SCH (09:54)
[2023-04-30] MEDS: POTASSIUM CHLORIDE 10MEQ SR TABLET PO SCH (09:54)
[2023-04-30] MEDS: FERROUS SULFATE 325MG TAB PO SCH (09:54)
[2023-04-30] MEDS: CLOPIDOGREL 75 MG TAB PO SCH (09:54)
[2023-04-30] MEDS: FOLIC ACID 1MG TAB PO SCH (09:54)
[2023-04-30] MEDS: SUCRALFATE SUSP 1GM/10ML UD PO SCH (09:55)
[2023-04-30] MEDS: DOXYCYCLINE HYCLATE 100MG TABLET PO SCH (09:55)
[2023-04-30] MEDS: guaiFENesin ER TABLET 600 MG TAB PO SCH (09:55)
[2023-04-30] MEDS: ENOXAPARIN 40MG/0.4ML SYRINGE (J1650 PER 10MG) SC SCH (09:56)
[2023-04-30] MEDS: PREGABALIN 75 MG CAP(LYRICA) PO SCH ×2 (09:57→15:39)
[2023-04-30] MEDS: LIDOCAINE 5% (LIDODERM) PATCH TOP SCH (10:03)
[2023-04-30] MEDS: DEXTROMETHORPHAN 60MG/10ML SUSP 90ML BTL(DELSYM) PO PRN (11:29)
[2023-04-30] MEDS: CEPHALEXIN 500 MG CAP PO SCH ×2 (13:36→15:39)
[2023-04-30 15:08] LABS: ALKALINE PHOSPHATASE 69 U/L (35-104); ALT/SGPT 11 U/L (1-33); AST/SGOT 10 U/L (5-40); BILIRUBIN,TOTAL < 0.7 MG/DL (0.2-1.3); BLOOD UREA NITROGEN 12 MG/DL (7-21); CALCIUM LEVEL 8.8 MG/DL (8.8-10.2); CARBON DIOXIDE LEVEL 23 MEQ/L (22-30); CHLORIDE LEVEL 101 MEQ/L (98-107); CREATININE FOR GFR 0.7 MG/DL (0.7-1.5); GLOMERULAR FILTRATION RATE > 60.0 (>39); GLUCOSE, FASTING 166 MG/DL; POTASSIUM SERUM 4.5 MEQ/L (3.6-5.0); SODIUM LEVEL 136 MEQ/L (134-153)
[2023-04-30 15:09] LABS: ALBUMIN 3.1 G/DL (3.9-5.0); MAGNESIUM LEVEL 1.5 MG/DL (1.7-2.2); TOTAL PROTEIN 5.6 G/DL (6.3-8.2)
[2023-04-30] MEDS ORDERED: MAGN400T2 PO (15:40)
[2023-04-30] MEDS ORDERED: BENZ-18 PO (15:40)
[2023-04-30] MEDS ORDERED: CEPH500C PO (15:40)
[2023-04-30] MEDS ORDERED: MUCI600T31 PO (15:40)
[2023-04-30] MEDS ORDERED: DOXY100T PO (15:40)
[2023-04-30] MEDS ORDERED: SUCRALFATE SUSP 1GM/10ML UD PO SCH (16:00)
[2023-04-30] MEDS ORDERED: MAG SULF 1GM/100ML (MAG RUN) 1 GM in IV 1 EA IV ONE (16:00)
[2023-04-30 16:10] LABS: BODY FLUID CULTURE Not indicated. (.); LEGIONELLA ANTIGEN URINE Negative (Negative); ORGANISM ID Not indicated. (.); SPECIMEN SOURCE Urine (.); URINE STREP PNEUMONIAE ANTIGEN Negative (Negative)
== END 2023-04-30 17:23 | disposition home health service (06) | DRG 871 ==
LOC: M ED 20:35 → EDBD 20:35 → M ED INP 04-27 00:57 → M PCU 04-27 02:56
PROVIDERS: ADMIT Internal Medicine; ATTEND Internal Medicine
DX: A41.51 Sepsis due to Escherichia coli [E. coli] (principal); G93.41 Metabolic encephalopathy; J18.9 Pneumonia, unspecified organism; J91.8 Pleural effusion in other conditions classified elsewhere; N39.0 Urinary tract infection, site not specified; J44.0 Chronic obstructive pulmonary disease with (acute) lower respiratory infection; E87.1 Hypo-osmolality and hyponatremia; D61.818 Other pancytopenia; I10 Essential (primary) hypertension; E78.5 Hyperlipidemia, unspecified; F17.200 Nicotine dependence, unspecified, uncomplicated; I25.10 Atherosclerotic heart disease of native coronary artery without angina pectoris; F32.A Depression, unspecified; K21.9 Gastro-esophageal reflux disease without esophagitis; F41.9 Anxiety disorder, unspecified; N32.89 Other specified disorders of bladder; D50.9 Iron deficiency anemia, unspecified; K44.9 Diaphragmatic hernia without obstruction or gangrene; E87.6 Hypokalemia; E83.42 Hypomagnesemia; K74.60 Unspecified cirrhosis of liver; E11.9 Type 2 diabetes mellitus without complications; G89.29 Other chronic pain; R33.9 Retention of urine, unspecified; Z90.49 Acquired absence of other specified parts of digestive tract; Z99.81 Dependence on supplemental oxygen; Z90.13 Acquired absence of bilateral breasts and nipples; Z96.642 Presence of left artificial hip joint; Z98.49 Cataract extraction status, unspecified eye; Z79.899 Other long term (current) drug therapy; Z88.0 Allergy status to penicillin; Z88.2 Allergy status to sulfonamides; Z88.5 Allergy status to narcotic agent; Z88.6 Allergy status to analgesic agent; Z88.8 Allergy status to other drugs, medicaments and biological substances; Z91.041 Radiographic dye allergy status; Z20.822 Contact with and (suspected) exposure to COVID-19; B96.20 Unspecified Escherichia coli [E. coli] as the cause of diseases classified elsewhere

== ENCOUNTER → 2023-05-13 | Outpatient (REF) | payer MEDICARE, MEDICAID ==
[~2023-05-13] MED LIST changes: +ALBU8.5H INH; +DOXY100T PO; +LIDO1PAD TOP; +MAGN400T2 PO; +SUCR1ORA2 PO
[2023-05-13 16:49] LABS: BASO % 0.6 % (0.0-1.0); EOS % 1.2 % (0.0-3.0); HEMATOCRIT 37.8 % (36.0-47.0); HEMOGLOBIN 12.7 g/dl (12.0-15.5); LYMPH # 1.2 10^3/uL (1.5-5.0); LYMPH % 35.4 % (24.0-44.0); MEAN CORPUSCULAR HEMOGLOBIN 30.4 pg (27.0-33.0); MEAN CORPUSCULAR HGB CONC 33.6 g/dl (32.0-36.5); MEAN CORPUSCULAR VOLUME 90.4 fl (80.0-96.0); MONO # 0.6 10^3/uL (0.0-0.8); MONO % 16.4 % (2.0-8.0); NEUTROPHILS # 1.6 10^3/uL (1.5-8.5); NEUTROPHILS % 46.1 % (36.0-66.0); PLATELET COUNT, AUTOMATED 201 10^3/uL (150-450); RED BLOOD COUNT 4.18 10^6/uL (4.00-5.40); WHITE BLOOD COUNT 3.4 10^3/uL (4.0-10.0)
[2023-05-13 17:20] LABS: ALBUMIN 3.4 G/DL (3.2-5.2); ALKALINE PHOSPHATASE 70 U/L (46-116); ALT/SGPT 18 U/L (7.0-40); AST/SGOT 23 U/L (<34); BILIRUBIN,TOTAL 0.3 MG/DL (0.3-1.2); BLOOD UREA NITROGEN 19 MG/DL (9-23); CALCIUM LEVEL 8.8 MG/DL (8.3-10.6); CARBON DIOXIDE LEVEL 25 MMOL/L (20-31); CHLORIDE LEVEL 99 MMOL/L (98-107); CREATININE FOR GFR 0.72 MG/DL (0.55-1.30); GLOMERULAR FILTRATION RATE > 60.0 (>39); GLUCOSE, FASTING 151 MG/DL (74-106); POTASSIUM SERUM 4.9 MMOL/L (3.5-5.1); SODIUM LEVEL 134 MMOL/L (136-145)
== END ==
LOC: M SFHCADAM 13:56
PROVIDERS: ATTEND Physician Assistant
DX: K74.60 Unspecified cirrhosis of liver (principal); J18.9 Pneumonia, unspecified organism; E83.42 Hypomagnesemia; R19.7 Diarrhea, unspecified

== ENCOUNTER → 2023-05-14 | Outpatient (CLI) | payer MEDICARE, MEDICAID ==
[2023-05-14 19:08] LABS: INR 1.09; PROTHROMBIN TIME 13.8 SECONDS (12.5-14.5)
[2023-05-14 19:09] LABS: PARTIAL THROMBOPLASTIN TIME 34.3 SECONDS (24.8-34.2)
== END ==
LOC: M LAB 17:59
PROVIDERS: ATTEND Physician Assistant
DX: K74.60 Unspecified cirrhosis of liver (principal); J18.9 Pneumonia, unspecified organism; F17.210 Nicotine dependence, cigarettes, uncomplicated; Z93.59 Other cystostomy status; Z90.13 Acquired absence of bilateral breasts and nipples; Z90.710 Acquired absence of both cervix and uterus; Z90.722 Acquired absence of ovaries, bilateral; Z79.51 Long term (current) use of inhaled steroids; Z79.02 Long term (current) use of antithrombotics/antiplatelets; Z88.0 Allergy status to penicillin; Z88.1 Allergy status to other antibiotic agents; Z88.2 Allergy status to sulfonamides; Z88.5 Allergy status to narcotic agent; Z88.6 Allergy status to analgesic agent; Z88.8 Allergy status to other drugs, medicaments and biological substances; Z91.041 Radiographic dye allergy status

== ENCOUNTER → 2023-07-23 | Outpatient (CLI) | payer MEDICARE, MEDICAID ==
[~2023-07-23] MED LIST changes: +ALBU2.5V10 NEB; -BENZ1LOZ2 PO; +ROBI1LIQ9 PO; +SORE15LO PO
== END ==
LOC: M PAIN 14:00
PROVIDERS: ATTEND Nurse Practitioner Family
DX: M79.10 Myalgia, unspecified site (principal); G89.29 Other chronic pain; F17.210 Nicotine dependence, cigarettes, uncomplicated; Z80.8 Family history of malignant neoplasm of other organs or systems; Z88.0 Allergy status to penicillin; Z88.1 Allergy status to other antibiotic agents; Z88.5 Allergy status to narcotic agent; Z88.8 Allergy status to other drugs, medicaments and biological substances; Z91.041 Radiographic dye allergy status; Z79.899 Other long term (current) drug therapy

== ENCOUNTER 2023-07-26 15:53 | Inpatient (IN) | payer MEDICARE, MEDICAID ==
[~2023-07-26] VITALS: Ht 172.7 cm; Wt 79.2 kg
[~2023-07-26 15:53] MED LIST changes: -ALBU2.5V10 NEB; -ROBI1LIQ9 PO
[2023-07-26] MEDS ORDERED: ACETAMINOPHEN TAB 650MG DOSE (2X325MG) PO ONE (16:45)
[2023-07-26 17:04] LABS: VENOUS BASE EXCESS 1.4 (-2.0-2.0); VENOUS O2 SATURATION 73.4 % (60.0-80.0); VENOUS PARTIAL PRESSURE CO2 46.7 mmHg (38.0-50.0); VENOUS PARTIAL PRESSURE O2 36.7 mmHg (30.0-50.0); VENOUS STANDARD HCO3 25.1 MMOL/L; VENOUS TOTAL CO2 28.4 MMOL/L (24.0-28.0)
[2023-07-26 17:13] LABS: BASO % 0.2 % (0.0-1.0); HEMATOCRIT 34.9 % (36.0-47.0); HEMOGLOBIN 12.4 g/dl (12.0-15.5); LYMPH # 0.8 10^3/uL (1.5-5.0); LYMPH % 4.9 % (24.0-44.0); MEAN CORPUSCULAR HEMOGLOBIN 31.2 pg (27.0-33.0); MEAN CORPUSCULAR HGB CONC 35.5 g/dl (32.0-36.5); MEAN CORPUSCULAR VOLUME 87.9 fl (80.0-96.0); MONO # 1.6 10^3/uL (0.0-0.8); MONO % 10.2 % (2.0-8.0); NEUTROPHILS # 13.2 10^3/uL (1.5-8.5); NEUTROPHILS % 84.3 % (36.0-66.0); PLATELET COUNT, AUTOMATED 146 10^3/uL (150-450); RED BLOOD COUNT 3.97 10^6/uL (4.00-5.40); WHITE BLOOD COUNT 15.6 10^3/uL (4.0-10.0)
[2023-07-26] MEDS: NS 1,000 ML IV SCH ×2 (17:29→23:35)
[2023-07-26 17:32] LABS: ALKALINE PHOSPHATASE 87 U/L (46-116); ALT/SGPT 16 U/L (7.0-40); AST/SGOT 9 U/L (<34); BILIRUBIN,DIRECT 0.5 MG/DL (<0.4); BILIRUBIN,TOTAL 0.8 MG/DL (0.3-1.2); BLOOD UREA NITROGEN 18 MG/DL (9-23); CALCIUM LEVEL 8.2 MG/DL (8.3-10.6); CARBON DIOXIDE LEVEL 29 MMOL/L (20-31); CHLORIDE LEVEL 97 MMOL/L (98-107); CK-MB VALUE MASS 2.5 NG/ML (<3.6); CPK CREATINE PHOSPHOKINASE 45 U/L (34-145); CREATININE FOR GFR 0.88 MG/DL (0.55-1.30); GLOMERULAR FILTRATION RATE > 60.0 (>39); GLUCOSE, FASTING 273 MG/DL (74-106); MB/CK RELATIVE INDEX 5.55 (< OR =4); POTASSIUM SERUM 3.7 MMOL/L (3.5-5.1); SODIUM LEVEL 132 MMOL/L (136-145); TOTAL PROTEIN 6.7 G/DL (5.7-8.2)
[2023-07-26 17:34] LABS: THYROID STIMULATING HORMONE 1.443 uIU/ML (0.55-4.78)
[2023-07-26 17:48] LABS: AMORPHOUS SEDIMENT SMALL (NEGATIVE); APPEARANCE, URINE CLOUDY (CLEAR); BACTERIA, URINE AUTO 3+ (NEGATIVE); BILIRUBIN, URINE AUTO NEGATIVE (NEGATIVE); BLOOD, URINE BLOOD 1+ (NEGATIVE); COLOR, URINE AMBER (YELLOW); GLUCOSE, URINE (UA) AUTO NEGATIVE (NEGATIVE); GRANULAR CAST, URINE AUTO 22 /LPF; KETONE, URINE AUTO TRACE mg/dL (NEGATIVE); LEUKOCYTE ESTERASE, URINE AUTO 3+ (NEGATIVE); MUCUS, URINE SMALL (NEGATIVE); NITRITE, URINE AUTO POSITIVE (NEGATIVE); PROTEIN, URINE AUTO 2+ mg/dL (NEGATIVE); RBC, URINE AUTO 3 /HPF (0-3); SQUAMOUS EPITHELIAL CELL UR AU 2 /HPF (0-6); WBC, URINE AUTO 89 /HPF (0-3)
[2023-07-26] MEDS ORDERED: cefTRIAXone SOD 2 GM in D5W MINI-BAG PLUS 50 ML IV ONE (18:00)
[2023-07-26] MEDS ORDERED: MED REC IN PROGRESS XX SCH (18:45)
[2023-07-26] MEDS ORDERED: ROBI1LIQ9 PO (19:17)
[2023-07-26] MEDS ORDERED: ALBU2.5V10 NEB (19:17)
[2023-07-26] MEDS ORDERED: HOME MED LIST COMPLETE! XX SCH (19:25)
[2023-07-26] MEDS ORDERED: MOM 30ML SUSPENSION UDC PO PRN (19:40)
[2023-07-26] MEDS ORDERED: VANCOMYCIN HCL 1,200 MG in IV FLUID PLACE HOLDER 1 EA IV SCH (19:40)
[2023-07-26] MEDS ORDERED: VANCOMYCIN HCL 750 MG, VIAL MATE ADAPTER 1 EACH in D5W 250 ML IV ONE ×2 (20:00→21:00)
[2023-07-26] MEDS: DOCUSATE SODIUM 100MG CAPSULE PO SCH (20:15)
[2023-07-26 20:22] LABS: ERYTHROCYTE SEDIMENTATION RATE 79 mm/hr (0-30); INR 1.22
[2023-07-26] MEDS ORDERED: GLUCAGON INJ 1MG VIAL SC PRN (20:25)
[2023-07-26] MEDS ORDERED: DEXTROSE 50% 50ML SYRINGE IV PRN (20:25)
[2023-07-26] MEDS ORDERED: GLUCOSE 4GM CHEW TABLET PO PRN (20:25)
[2023-07-26] MEDS ORDERED: SENNA 8.6 MG TAB (SENOKOT) PO PRN (20:25)
[2023-07-26 20:31] LABS: PROCALCITONIN 0.23 ng/ml
[2023-07-26] MEDS ORDERED: METHENAMINE HIPPURATE 1GM TABLET PO SCH (21:00)
[2023-07-26] MEDS: SODIUM CHLORIDE NASAL 0.65% SPRAY BTL (OCEAN) SCH (21:00)
[2023-07-26] MEDS: ERYTHROMYCIN OPHTH OINT OU SCH (21:00)
[2023-07-26] MEDS: MIRTAZAPINE 15 MG TAB PO SCH (21:21)
[2023-07-26] MEDS: PREGABALIN 75 MG CAP(LYRICA) PO SCH (21:21)
[2023-07-26] MEDS: FOLIC ACID 1MG TAB PO SCH (21:21)
[2023-07-26] MEDS: traZODone 100 MG TAB PO SCH (21:22)
[2023-07-26] MEDS: SIMVASTATIN 20 MG TAB PO SCH (21:22)
[2023-07-26] MEDS: MAGNESIUM OXIDE 400MG TAB (MAG-OX) PO SCH (21:22)
[2023-07-26] MEDS: MONTELUKAST 10 MG TAB PO SCH (21:22)
[2023-07-26] MEDS: METAMUCIL (PSYLLIUM) PACKET PO SCH (21:23)
[2023-07-26] MEDS: MIRALAX *UNIT DOSE* 17GM PACKET PO SCH (21:23)
[2023-07-26] MEDS: SUCRALFATE SUSP 1GM/10ML UD PO SCH (21:23)
[2023-07-26] MEDS: metroNIDAZOLE 500 MG in IV 1 EA IV SCH (22:20)
[2023-07-27] VITALS (13 sets, daily range): BP systolic 116–118; BP diastolic 56–59; TEMP 97.6–97.9; O2SAT 95–99
[2023-07-27] MEDS ORDERED: CEFEPIME HCL 2 GM in D5W 50 ML IV SCH ×2
[2023-07-27] MEDS: INSULIN LISPRO (NovoLOG) PER UNIT SC SCH ×6 (00:23→21:00)
[2023-07-27] MEDS: HEPARIN SOD (PORCINE) 5000UNITS/ML 1ML VIAL/SYRINGE SC SCH ×3 (06:34→21:48)
[2023-07-27] MEDS: metroNIDAZOLE 500 MG in IV 1 EA IV SCH (06:39)
[2023-07-27 07:49] LABS: BASO % 0.1 % (0.0-1.0); EOS % 0.2 % (0.0-3.0); HEMATOCRIT 31.3 % (36.0-47.0); HEMOGLOBIN 10.6 g/dl (12.0-15.5); LYMPH # 1.2 10^3/uL (1.5-5.0); LYMPH % 14.1 % (24.0-44.0); MEAN CORPUSCULAR HEMOGLOBIN 29.8 pg (27.0-33.0); MEAN CORPUSCULAR HGB CONC 33.9 g/dl (32.0-36.5); MEAN CORPUSCULAR VOLUME 87.9 fl (80.0-96.0); MONO # 1.1 10^3/uL (0.0-0.8); MONO % 12.9 % (2.0-8.0); NEUTROPHILS # 6.2 10^3/uL (1.5-8.5); NEUTROPHILS % 72.3 % (36.0-66.0); PLATELET COUNT, AUTOMATED 124 10^3/uL (150-450); RED BLOOD COUNT 3.56 10^6/uL (4.00-5.40); WHITE BLOOD COUNT 8.5 10^3/uL (4.0-10.0)
[2023-07-27] MEDS: TIOTROPIUM INHALER/CAPSULE (SPIRIVA) INH SCH (08:00)
[2023-07-27] MEDS: ADVAIR HFA 230/21MCG INHALER INH SCH ×2 (08:00→21:15)
[2023-07-27 08:18] LABS: BLOOD UREA NITROGEN 14 MG/DL (9-23); CALCIUM LEVEL 7.7 MG/DL (8.3-10.6); CARBON DIOXIDE LEVEL 29 MMOL/L (20-31); CHLORIDE LEVEL 104 MMOL/L (98-107); CREATININE FOR GFR 0.81 MG/DL (0.55-1.30); GLOMERULAR FILTRATION RATE > 60.0 (>39); GLUCOSE, FASTING 199 MG/DL (74-106); POTASSIUM SERUM 3.3 MMOL/L (3.5-5.1); SODIUM LEVEL 137 MMOL/L (136-145)
[2023-07-27] MEDS: IPRATROPIUM 0.5MG/ALBUTEROL 2.5MG INH SOL UD 3ML (DUONEB) NEB SCH ×3 (08:35→21:16)
[2023-07-27] MEDS: VANCOMYCIN HCL 500 MG in D5W MINI-BAG PLUS 100 ML IV SCH (08:47)
[2023-07-27] MEDS: DOCUSATE SODIUM 100MG CAPSULE PO SCH (09:00)
[2023-07-27] MEDS: METAMUCIL (PSYLLIUM) PACKET PO SCH ×2 (09:00→21:00)
[2023-07-27] MEDS: SODIUM CHLORIDE NASAL 0.65% SPRAY BTL (OCEAN) SCH ×2 (09:00→21:00)
[2023-07-27] MEDS ORDERED: POTASSIUM CHLORIDE 10MEQ SR TABLET PO ONE (10:30)
[2023-07-27] MEDS: CLOPIDOGREL 75 MG TAB PO SCH (10:31)
[2023-07-27] MEDS: guaiFENesin ER TABLET 600 MG TAB PO SCH ×2 (10:31→21:00)
[2023-07-27] MEDS: FOLIC ACID 1MG TAB PO SCH ×2 (10:31→21:48)
[2023-07-27] MEDS: SUCRALFATE SUSP 1GM/10ML UD PO SCH ×2 (10:31→21:00)
[2023-07-27] MEDS: PANTOPRAZOLE 40MG TAB (PROTONIX) PO SCH (10:31)
[2023-07-27] MEDS: MAGNESIUM OXIDE 400MG TAB (MAG-OX) PO SCH ×2 (10:31→21:49)
[2023-07-27] MEDS: VARENICLINE 1MG TABLET PO SCH (10:32)
[2023-07-27] MEDS: LIDOCAINE 5% (LIDODERM) PATCH TOP SCH (10:32)
[2023-07-27] MEDS: FERROUS SULFATE 325MG TAB PO SCH (10:32)
[2023-07-27] MEDS: MIRALAX *UNIT DOSE* 17GM PACKET PO SCH ×2 (10:32→21:00)
[2023-07-27] MEDS: PREGABALIN 75 MG CAP(LYRICA) PO SCH ×3 (10:32→21:48)
[2023-07-27] MEDS: VANCOMYCIN HCL 750 MG, VIAL MATE ADAPTER 1 EACH in D5W 250 ML IV SCH (10:33)
[2023-07-27] MEDS: ERYTHROMYCIN OPHTH OINT OU SCH ×4 (10:47→21:49)
[2023-07-27] MEDS: LR 1,000 ML IV SCH (10:59)
[2023-07-27 11:01] LABS: MAGNESIUM LEVEL 1.6 MG/DL (1.8-2.4)
[2023-07-27] MEDS: CEFEPIME HCL 2 GM in D5W 50 ML IV SCH ×2 (12:36→17:41)
[2023-07-27] MEDS: ACETAMINOPHEN TAB 650MG DOSE (2X325MG) PO PRN (12:36)
[2023-07-27] MEDS ORDERED: SODIUM CHLORIDE HYPERTONIC 3% 4ML NEB SOL INH PRN (13:10)
[2023-07-27] MEDS ORDERED: KETOROLAC 30 MG/ML 1ML VIAL IV ONE (13:30)
[2023-07-27] MEDS: metroNIDAZOLE (FLAGYL) 500MG TABLET PO SCH ×2 (15:28→21:49)
[2023-07-27] MEDS: MAG SULF 1GM/100ML (MAG RUN) 1 GM in IV 1 EA IV SCH ×3 (15:28→18:13)
[2023-07-27] MEDS ORDERED: ACETAMINOPHEN *IV* 1,000 MG in IV 1 EA IV ONE (20:00)
[2023-07-27] MEDS: SENOKOT S TAB PO SCH (21:00)
[2023-07-27] MEDS: ALBUTEROL SULFATE 2.5MG/0.5ML INH NEB SOLN NEB SCH (21:28)
[2023-07-27] MEDS: traZODone 100 MG TAB PO SCH (21:48)
[2023-07-27] MEDS: MIRTAZAPINE 15 MG TAB PO SCH (21:48)
[2023-07-27] MEDS: SIMVASTATIN 20 MG TAB PO SCH (21:49)
[2023-07-27] MEDS: MONTELUKAST 10 MG TAB PO SCH (21:49)
[2023-07-28] VITALS (18 sets, daily range): BP systolic 131–148; BP diastolic 60–73; TEMP 96.8–98.8; O2SAT 88–98
[2023-07-28] MEDS: LR 1,000 ML IV SCH (00:20)
[2023-07-28] MEDS: CEFEPIME HCL 2 GM in D5W 50 ML IV SCH ×3 (02:41→18:46)
[2023-07-28] MEDS: guaiFENesin DM LIQ 10ML UD PO PRN ×3 (05:17→21:47)
[2023-07-28] MEDS: ACETAMINOPHEN TAB 650MG DOSE (2X325MG) PO PRN ×3 (05:18→21:55)
[2023-07-28] MEDS: metroNIDAZOLE (FLAGYL) 500MG TABLET PO SCH ×2 (05:18→14:57)
[2023-07-28] MEDS: HEPARIN SOD (PORCINE) 5000UNITS/ML 1ML VIAL/SYRINGE SC SCH ×2 (05:19→14:58)
[2023-07-28 07:18] LABS: BASO % 0.2 % (0.0-1.0); EOS # 0.1 10^3/uL (0.0-0.5); EOS % 1.8 % (0.0-3.0); HEMATOCRIT 30.2 % (36.0-47.0); HEMOGLOBIN 10.4 g/dl (12.0-15.5); LYMPH # 0.6 10^3/uL (1.5-5.0); LYMPH % 13.1 % (24.0-44.0); MEAN CORPUSCULAR HEMOGLOBIN 30.9 pg (27.0-33.0); MEAN CORPUSCULAR HGB CONC 34.4 g/dl (32.0-36.5); MEAN CORPUSCULAR VOLUME 89.6 fl (80.0-96.0); MONO # 0.8 10^3/uL (0.0-0.8); MONO % 17.2 % (2.0-8.0); NEUTROPHILS % 67.2 % (36.0-66.0); PLATELET COUNT, AUTOMATED 102 10^3/uL (150-450); RED BLOOD COUNT 3.37 10^6/uL (4.00-5.40); WHITE BLOOD COUNT 4.4 10^3/uL (4.0-10.0)
[2023-07-28 07:51] LABS: PROCALCITONIN 0.22 ng/ml
[2023-07-28 08:00] LABS: BLOOD UREA NITROGEN 14 MG/DL (9-23); CALCIUM LEVEL 7.7 MG/DL (8.3-10.6); CARBON DIOXIDE LEVEL 28 MMOL/L (20-31); CHLORIDE LEVEL 102 MMOL/L (98-107); CREATININE FOR GFR 0.88 MG/DL (0.55-1.30); GLOMERULAR FILTRATION RATE > 60.0 (>39); GLUCOSE, FASTING 222 MG/DL (74-106); POTASSIUM SERUM 4.3 MMOL/L (3.5-5.1); SODIUM LEVEL 134 MMOL/L (136-145)
[2023-07-28 08:39] LABS: MAGNESIUM LEVEL 2.2 MG/DL (1.8-2.4)
[2023-07-28] MEDS: METAMUCIL (PSYLLIUM) PACKET PO SCH ×2 (08:51→21:00)
[2023-07-28] MEDS: SUCRALFATE SUSP 1GM/10ML UD PO SCH ×2 (08:51→21:00)
[2023-07-28] MEDS: MAGNESIUM OXIDE 400MG TAB (MAG-OX) PO SCH ×2 (08:51→21:41)
[2023-07-28] MEDS: FOLIC ACID 1MG TAB PO SCH ×2 (08:52→21:41)
[2023-07-28] MEDS: CLOPIDOGREL 75 MG TAB PO SCH (08:52)
[2023-07-28] MEDS: FERROUS SULFATE 325MG TAB PO SCH (08:52)
[2023-07-28] MEDS: MIRALAX *UNIT DOSE* 17GM PACKET PO SCH ×2 (08:52→21:00)
[2023-07-28] MEDS: guaiFENesin ER TABLET 600 MG TAB PO SCH (08:52)
[2023-07-28] MEDS: SENOKOT S TAB PO SCH ×2 (08:52→21:00)
[2023-07-28] MEDS: PANTOPRAZOLE 40MG TAB (PROTONIX) PO SCH (08:53)
[2023-07-28] MEDS: VANCOMYCIN HCL 500 MG in D5W MINI-BAG PLUS 100 ML IV SCH (08:53)
[2023-07-28] MEDS: PREGABALIN 75 MG CAP(LYRICA) PO SCH ×3 (08:53→21:41)
[2023-07-28] MEDS: INSULIN LISPRO (NovoLOG) PER UNIT SC SCH ×4 (08:54→21:00)
[2023-07-28] MEDS: LIDOCAINE 5% (LIDODERM) PATCH TOP SCH (08:54)
[2023-07-28] MEDS: ERYTHROMYCIN OPHTH OINT OU SCH ×4 (08:55→21:42)
[2023-07-28] MEDS ORDERED: KETOROLAC 30 MG/ML 1ML VIAL IV ONE (09:00)
[2023-07-28] MEDS: ALBUTEROL SULFATE 2.5MG/0.5ML INH NEB SOLN NEB SCH (09:00)
[2023-07-28] MEDS: ADVAIR HFA 230/21MCG INHALER INH SCH ×2 (09:30→19:17)
[2023-07-28] MEDS: TIOTROPIUM INHALER/CAPSULE (SPIRIVA) INH SCH (09:30)
[2023-07-28] MEDS: IPRATROPIUM 0.5MG/ALBUTEROL 2.5MG INH SOL UD 3ML (DUONEB) NEB SCH ×4 (09:30→19:17)
[2023-07-28] MEDS ORDERED: SODIUM CHLORIDE HYPERTONIC 3% 4ML NEB SOL INH ONE (10:00)
[2023-07-28] MEDS: VANCOMYCIN HCL 750 MG, VIAL MATE ADAPTER 1 EACH in D5W 250 ML IV SCH (10:28)
[2023-07-28] MEDS: VARENICLINE 1MG TABLET PO SCH (12:13)
[2023-07-28] MEDS: ANALGESIC BALM CRM 3OZ TOP SCH ×2 (12:13→21:43)
[2023-07-28] MEDS: SODIUM CHLORIDE NASAL 0.65% SPRAY BTL (OCEAN) SCH ×2 (14:58→21:00)
[2023-07-28] MEDS: BENZONATATE 100MG CAPSULE PO PRN (19:48)
[2023-07-28] MEDS: traZODone 100 MG TAB PO SCH (21:41)
[2023-07-28] MEDS: MIRTAZAPINE 15 MG TAB PO SCH (21:41)
[2023-07-28] MEDS: MONTELUKAST 10 MG TAB PO SCH (21:41)
[2023-07-28] MEDS: SIMVASTATIN 20 MG TAB PO SCH (21:41)
[2023-07-29] VITALS (15 sets, daily range): BP systolic 120–155; BP diastolic 59–73; TEMP 97.7–98.7; O2SAT 94–98
[2023-07-29] MEDS: HEPARIN SOD (PORCINE) 5000UNITS/ML 1ML VIAL/SYRINGE SC SCH ×4 (00:35→21:13)
[2023-07-29] MEDS: CEFEPIME HCL 2 GM in D5W 50 ML IV SCH ×3 (02:16→17:33)
[2023-07-29] MEDS: IPRATROPIUM 0.5MG/ALBUTEROL 2.5MG INH SOL UD 3ML (DUONEB) NEB SCH (07:24)
[2023-07-29] MEDS: TIOTROPIUM INHALER/CAPSULE (SPIRIVA) INH SCH (07:25)
[2023-07-29] MEDS: ADVAIR HFA 230/21MCG INHALER INH SCH ×2 (07:26→20:28)
[2023-07-29] MEDS: ACETAMINOPHEN TAB 650MG DOSE (2X325MG) PO PRN ×4 (08:19→21:03)
[2023-07-29] MEDS: ANALGESIC BALM CRM 3OZ TOP SCH ×2 (08:19→21:05)
[2023-07-29] MEDS: LIDOCAINE 5% (LIDODERM) PATCH TOP SCH (08:20)
[2023-07-29] MEDS: INSULIN LISPRO (NovoLOG) PER UNIT SC SCH ×4 (08:20→20:56)
[2023-07-29] MEDS: METAMUCIL (PSYLLIUM) PACKET PO SCH ×2 (08:20→21:03)
[2023-07-29] MEDS: SUCRALFATE SUSP 1GM/10ML UD PO SCH ×2 (08:20→21:03)
[2023-07-29] MEDS: MIRALAX *UNIT DOSE* 17GM PACKET PO SCH ×2 (08:20→21:03)
[2023-07-29] MEDS: FOLIC ACID 1MG TAB PO SCH ×2 (08:21→21:04)
[2023-07-29] MEDS: VARENICLINE 1MG TABLET PO SCH (08:21)
[2023-07-29] MEDS: PANTOPRAZOLE 40MG TAB (PROTONIX) PO SCH (08:21)
[2023-07-29] MEDS: FERROUS SULFATE 325MG TAB PO SCH (08:21)
[2023-07-29] MEDS: ERYTHROMYCIN OPHTH OINT OU SCH ×4 (08:21→21:05)
[2023-07-29] MEDS: SENOKOT S TAB PO SCH ×2 (08:22→21:04)
[2023-07-29] MEDS: MAGNESIUM OXIDE 400MG TAB (MAG-OX) PO SCH ×2 (08:22→21:03)
[2023-07-29] MEDS: PREGABALIN 75 MG CAP(LYRICA) PO SCH ×3 (08:22→21:04)
[2023-07-29] MEDS: CLOPIDOGREL 75 MG TAB PO SCH (08:22)
[2023-07-29 08:23] LABS: EOS # 0.1 10^3/uL (0.0-0.5); EOS % 1.7 % (0.0-3.0); HEMATOCRIT 30.3 % (36.0-47.0); HEMOGLOBIN 10.9 g/dl (12.0-15.5); LYMPH # 0.8 10^3/uL (1.5-5.0); LYMPH % 20.9 % (24.0-44.0); MEAN CORPUSCULAR HEMOGLOBIN 32.7 pg (27.0-33.0); MONO # 0.9 10^3/uL (0.0-0.8); MONO % 21.9 % (2.0-8.0); NEUTROPHILS # 2.2 10^3/uL (1.5-8.5); PLATELET COUNT, AUTOMATED 135 10^3/uL (150-450); RED BLOOD COUNT 3.33 10^6/uL (4.00-5.40)
[2023-07-29] MEDS: SODIUM CHLORIDE NASAL 0.65% SPRAY BTL (OCEAN) SCH ×2 (08:23→21:05)
[2023-07-29 08:40] LABS: BLOOD UREA NITROGEN 12 MG/DL (9-23); CALCIUM LEVEL 7.8 MG/DL (8.3-10.6); CARBON DIOXIDE LEVEL 28 MMOL/L (20-31); CHLORIDE LEVEL 104 MMOL/L (98-107); CREATININE FOR GFR 0.83 MG/DL (0.55-1.30); GLOMERULAR FILTRATION RATE > 60.0 (>39); GLUCOSE, FASTING 205 MG/DL (74-106); POTASSIUM SERUM 4.2 MMOL/L (3.5-5.1); SODIUM LEVEL 136 MMOL/L (136-145)
[2023-07-29] MEDS: METOPROLOL TART 12.5 MG PER 1/2 TAB PO SCH ×2 (09:00→21:03)
[2023-07-29] MEDS ORDERED: IPRATROPIUM 0.5MG/ALBUTEROL 2.5MG INH SOL UD 3ML (DUONEB) NEB PRN (11:10)
[2023-07-29] MEDS: ALBUTEROL 90 MCG/ACT 8GM HFA INHALER INH PRN (11:38)
[2023-07-29] MEDS: BENZONATATE 100MG CAPSULE PO PRN (12:12)
[2023-07-29] MEDS: MIRTAZAPINE 15 MG TAB PO SCH (21:04)
[2023-07-29] MEDS: SIMVASTATIN 20 MG TAB PO SCH (21:04)
[2023-07-29] MEDS: traZODone 100 MG TAB PO SCH (21:04)
[2023-07-29] MEDS: MONTELUKAST 10 MG TAB PO SCH (21:04)
[2023-07-30] MEDS: CEFEPIME HCL 2 GM in D5W 50 ML IV SCH ×3 (02:00→18:29)
[2023-07-30 03:40] VITALS: BP 142/79; TEMP 98.6; O2SAT 96
[2023-07-30] MEDS: HEPARIN SOD (PORCINE) 5000UNITS/ML 1ML VIAL/SYRINGE SC SCH ×3 (05:10→21:21)
[2023-07-30 06:29] LABS: BASO % 0.2 % (0.0-1.0); EOS # 0.1 10^3/uL (0.0-0.5); EOS % 1.2 % (0.0-3.0); HEMATOCRIT 30.1 % (36.0-47.0); HEMOGLOBIN 10.7 g/dl (12.0-15.5); LYMPH # 0.7 10^3/uL (1.5-5.0); LYMPH % 17.3 % (24.0-44.0); MEAN CORPUSCULAR HGB CONC 35.5 g/dl (32.0-36.5); MEAN CORPUSCULAR VOLUME 92.9 fl (80.0-96.0); MONO % 23.3 % (2.0-8.0); NEUTROPHILS # 2.4 10^3/uL (1.5-8.5); PLATELET COUNT, AUTOMATED 132 10^3/uL (150-450); RED BLOOD COUNT 3.24 10^6/uL (4.00-5.40); WHITE BLOOD COUNT 4.2 10^3/uL (4.0-10.0)
[2023-07-30 06:54] LABS: BLOOD UREA NITROGEN 12 MG/DL (9-23); CALCIUM LEVEL 7.9 MG/DL (8.3-10.6); CARBON DIOXIDE LEVEL 31 MMOL/L (20-31); CHLORIDE LEVEL 102 MMOL/L (98-107); CREATININE FOR GFR 0.77 MG/DL (0.55-1.30); GLOMERULAR FILTRATION RATE > 60.0 (>39); GLUCOSE, FASTING 253 MG/DL (74-106); POTASSIUM SERUM 3.9 MMOL/L (3.5-5.1); SODIUM LEVEL 136 MMOL/L (136-145)
[2023-07-30 07:50] VITALS: BP 178/84; TEMP 98.4; O2SAT 91
[2023-07-30] MEDS: ADVAIR HFA 230/21MCG INHALER INH SCH ×2 (08:14→19:54)
[2023-07-30] MEDS: TIOTROPIUM INHALER/CAPSULE (SPIRIVA) INH SCH (08:14)
[2023-07-30] MEDS: MIRALAX *UNIT DOSE* 17GM PACKET PO SCH ×2 (09:00→21:00)
[2023-07-30] MEDS: METAMUCIL (PSYLLIUM) PACKET PO SCH ×2 (09:00→21:00)
[2023-07-30] MEDS: VARENICLINE 1MG TABLET PO SCH (09:00)
[2023-07-30] MEDS: INSULIN LISPRO (NovoLOG) PER UNIT SC SCH ×4 (09:21→21:00)
[2023-07-30] MEDS: SUCRALFATE SUSP 1GM/10ML UD PO SCH ×2 (09:21→21:22)
[2023-07-30] MEDS: FERROUS SULFATE 325MG TAB PO SCH (09:22)
[2023-07-30] MEDS: PREGABALIN 75 MG CAP(LYRICA) PO SCH ×3 (09:22→21:18)
[2023-07-30] MEDS: SENOKOT S TAB PO SCH ×2 (09:22→21:18)
[2023-07-30] MEDS: CLOPIDOGREL 75 MG TAB PO SCH (09:22)
[2023-07-30] MEDS: METOPROLOL TART 12.5 MG PER 1/2 TAB PO SCH ×2 (09:22→21:18)
[2023-07-30] MEDS: PANTOPRAZOLE 40MG TAB (PROTONIX) PO SCH (09:22)
[2023-07-30] MEDS: MAGNESIUM OXIDE 400MG TAB (MAG-OX) PO SCH ×2 (09:22→21:18)
[2023-07-30] MEDS: FOLIC ACID 1MG TAB PO SCH ×2 (09:22→21:18)
[2023-07-30] MEDS: LIDOCAINE 5% (LIDODERM) PATCH TOP SCH (09:23)
[2023-07-30] MEDS: ANALGESIC BALM CRM 3OZ TOP SCH ×2 (09:23→21:00)
[2023-07-30] MEDS: SODIUM CHLORIDE NASAL 0.65% SPRAY BTL (OCEAN) SCH ×2 (09:24→21:20)
[2023-07-30] MEDS: ERYTHROMYCIN OPHTH OINT OU SCH ×4 (09:24→21:20)
[2023-07-30] MEDS: ACETAMINOPHEN TAB 650MG DOSE (2X325MG) PO PRN ×3 (09:32→21:17)
[2023-07-30 12:00] VITALS: BP 125/69
[2023-07-30 14:16] LABS: HEMOGLOBIN A1c 7.4 % (4.0-6.0)
[2023-07-30 18:47] VITALS: TEMP 97.3; O2SAT 90
[2023-07-30 18:51] VITALS: BP 160/78
[2023-07-30 20:09] VITALS: BP 164/82; TEMP 98.2; O2SAT 91
[2023-07-30] MEDS: SIMVASTATIN 20 MG TAB PO SCH (21:17)
[2023-07-30] MEDS: MIRTAZAPINE 15 MG TAB PO SCH (21:18)
[2023-07-30] MEDS: MONTELUKAST 10 MG TAB PO SCH (21:19)
[2023-07-30] MEDS: traZODone 100 MG TAB PO SCH (21:22)
[2023-07-31] MEDS: CEFEPIME HCL 2 GM in D5W 50 ML IV SCH ×3 (02:24→17:41)
[2023-07-31 05:36] VITALS: BP 143/64; TEMP 97.4; O2SAT 91
[2023-07-31] MEDS: HEPARIN SOD (PORCINE) 5000UNITS/ML 1ML VIAL/SYRINGE SC SCH ×3 (06:36→22:26)
[2023-07-31 08:02] VITALS: BP 180/88; TEMP 97.9; O2SAT 94
[2023-07-31] MEDS: ADVAIR HFA 230/21MCG INHALER INH SCH ×2 (08:16→20:43)
[2023-07-31] MEDS: TIOTROPIUM INHALER/CAPSULE (SPIRIVA) INH SCH (08:16)
[2023-07-31] MEDS: SUCRALFATE SUSP 1GM/10ML UD PO SCH ×2 (08:56→21:00)
[2023-07-31] MEDS: INSULIN LISPRO (NovoLOG) PER UNIT SC SCH ×4 (08:56→22:25)
[2023-07-31] MEDS: PREGABALIN 75 MG CAP(LYRICA) PO SCH ×3 (08:57→22:28)
[2023-07-31] MEDS: FERROUS SULFATE 325MG TAB PO SCH (08:57)
[2023-07-31] MEDS: FOLIC ACID 1MG TAB PO SCH ×2 (08:57→22:28)
[2023-07-31] MEDS: MAGNESIUM OXIDE 400MG TAB (MAG-OX) PO SCH ×2 (08:57→22:28)
[2023-07-31] MEDS: CLOPIDOGREL 75 MG TAB PO SCH (08:57)
[2023-07-31] MEDS: VARENICLINE 1MG TABLET PO SCH (08:58)
[2023-07-31] MEDS: ACETAMINOPHEN TAB 650MG DOSE (2X325MG) PO PRN ×2 (08:58→15:24)
[2023-07-31] MEDS: METOPROLOL TART 25 MG TABLET PO SCH ×2 (08:58→22:28)
[2023-07-31] MEDS: SENOKOT S TAB PO SCH ×2 (08:59→21:00)
[2023-07-31] MEDS: PANTOPRAZOLE 40MG TAB (PROTONIX) PO SCH (08:59)
[2023-07-31] MEDS: MIRALAX *UNIT DOSE* 17GM PACKET PO SCH ×2 (08:59→21:00)
[2023-07-31] MEDS: METAMUCIL (PSYLLIUM) PACKET PO SCH ×2 (08:59→21:00)
[2023-07-31 09:00] VITALS: BP 142/62
[2023-07-31] MEDS: LIDOCAINE 5% (LIDODERM) PATCH TOP SCH (09:00)
[2023-07-31] MEDS: ANALGESIC BALM CRM 3OZ TOP SCH ×2 (09:00→22:26)
[2023-07-31] MEDS: SODIUM CHLORIDE NASAL 0.65% SPRAY BTL (OCEAN) SCH ×2 (09:00→22:29)
[2023-07-31] MEDS: ERYTHROMYCIN OPHTH OINT OU SCH ×5 (09:00→22:29)
[2023-07-31] MEDS ORDERED: MAGN400T2 PO (13:24)
[2023-07-31] MEDS ORDERED: METO1TAB87 PO (13:24)
[2023-07-31] MEDS ORDERED: COLA100C5 PO (13:24)
[2023-07-31] MEDS ORDERED: MIRA1POW3 PO (13:24)
[2023-07-31] MEDS ORDERED: METF-1191 PO (13:24)
[2023-07-31] MEDS ORDERED: PRED20TA PO (13:26)
[2023-07-31] MEDS ORDERED: IPRA0.00 INH (13:26)
[2023-07-31] MEDS: ALBUTEROL 90 MCG/ACT 8GM HFA INHALER INH PRN (16:00)
[2023-07-31 20:14] VITALS: BP 154/80; TEMP 98.1; O2SAT 90
[2023-07-31] MEDS: MONTELUKAST 10 MG TAB PO SCH (22:26)
[2023-07-31] MEDS: traZODone 100 MG TAB PO SCH (22:27)
[2023-07-31] MEDS: MIRTAZAPINE 15 MG TAB PO SCH (22:27)
[2023-07-31] MEDS: SIMVASTATIN 20 MG TAB PO SCH (22:27)
[2023-07-31 22:28] VITALS: BP 154/80
[2023-08-01] MEDS: CEFEPIME HCL 2 GM in D5W 50 ML IV SCH ×2 (02:19→08:05)
[2023-08-01] MEDS: HEPARIN SOD (PORCINE) 5000UNITS/ML 1ML VIAL/SYRINGE SC SCH (06:00)
[2023-08-01] MEDS: MIRALAX *UNIT DOSE* 17GM PACKET PO SCH (07:56)
[2023-08-01] MEDS: SENOKOT S TAB PO SCH (07:56)
[2023-08-01] MEDS: ANALGESIC BALM CRM 3OZ TOP SCH (07:56)
[2023-08-01] MEDS: METAMUCIL (PSYLLIUM) PACKET PO SCH (07:56)
[2023-08-01 08:00] VITALS: BP 164/88
[2023-08-01] MEDS: LIDOCAINE 5% (LIDODERM) PATCH TOP SCH (08:05)
[2023-08-01] MEDS: VARENICLINE 1MG TABLET PO SCH (08:05)
[2023-08-01] MEDS: SUCRALFATE SUSP 1GM/10ML UD PO SCH (08:05)
[2023-08-01] MEDS: PREGABALIN 75 MG CAP(LYRICA) PO SCH (08:05)
[2023-08-01] MEDS: INSULIN LISPRO (NovoLOG) PER UNIT SC SCH (08:05)
[2023-08-01] MEDS: ACETAMINOPHEN TAB 650MG DOSE (2X325MG) PO PRN (08:06)
[2023-08-01] MEDS: MAGNESIUM OXIDE 400MG TAB (MAG-OX) PO SCH (08:06)
[2023-08-01] MEDS: FERROUS SULFATE 325MG TAB PO SCH (08:06)
[2023-08-01] MEDS: PANTOPRAZOLE 40MG TAB (PROTONIX) PO SCH (08:06)
[2023-08-01] MEDS: CLOPIDOGREL 75 MG TAB PO SCH (08:06)
[2023-08-01] MEDS: FOLIC ACID 1MG TAB PO SCH (08:06)
[2023-08-01] MEDS: TIOTROPIUM INHALER/CAPSULE (SPIRIVA) INH SCH (08:07)
[2023-08-01] MEDS: METOPROLOL TART 25 MG TABLET PO SCH (08:07)
[2023-08-01] MEDS: ADVAIR HFA 230/21MCG INHALER INH SCH (08:07)
[2023-08-01] MEDS: ERYTHROMYCIN OPHTH OINT OU SCH (08:08)
[2023-08-01] MEDS: SODIUM CHLORIDE NASAL 0.65% SPRAY BTL (OCEAN) SCH (08:08)
== END 2023-08-01 10:21 | disposition home or self-care (01) | DRG 871 ==
LOC: M ED 15:53 → M ED INP 19:39 → ENRESERV 07-27 13:51 → M PCU 07-27 15:09
PROVIDERS: ADMIT Student in an Organized Health Care Education/Training Program; ATTEND Student in an Organized Health Care Education/Training Program
DX: A41.9 Sepsis, unspecified organism (principal); J12.9 Viral pneumonia, unspecified; N10 Acute pyelonephritis; J96.11 Chronic respiratory failure with hypoxia; J44.0 Chronic obstructive pulmonary disease with (acute) lower respiratory infection; G89.29 Other chronic pain; F17.210 Nicotine dependence, cigarettes, uncomplicated; B96.20 Unspecified Escherichia coli [E. coli] as the cause of diseases classified elsewhere; B97.29 Other coronavirus as the cause of diseases classified elsewhere; I10 Essential (primary) hypertension; E78.5 Hyperlipidemia, unspecified; I25.10 Atherosclerotic heart disease of native coronary artery without angina pectoris; K74.60 Unspecified cirrhosis of liver; M54.9 Dorsalgia, unspecified; E11.42 Type 2 diabetes mellitus with diabetic polyneuropathy; K21.9 Gastro-esophageal reflux disease without esophagitis; R91.8 Other nonspecific abnormal finding of lung field; R13.10 Dysphagia, unspecified; G47.00 Insomnia, unspecified; F32.A Depression, unspecified; J32.3 Chronic sphenoidal sinusitis; H10.9 Unspecified conjunctivitis; K59.00 Constipation, unspecified; R33.9 Retention of urine, unspecified; N83.8 Other noninflammatory disorders of ovary, fallopian tube and broad ligament; M81.0 Age-related osteoporosis without current pathological fracture; D50.9 Iron deficiency anemia, unspecified; Z80.8 Family history of malignant neoplasm of other organs or systems; Z79.899 Other long term (current) drug therapy; Z90.13 Acquired absence of bilateral breasts and nipples; Z99.81 Dependence on supplemental oxygen; Z88.0 Allergy status to penicillin; Z88.1 Allergy status to other antibiotic agents; Z88.5 Allergy status to narcotic agent; Z88.6 Allergy status to analgesic agent; Z88.8 Allergy status to other drugs, medicaments and biological substances; Z98.49 Cataract extraction status, unspecified eye; Z90.49 Acquired absence of other specified parts of digestive tract; Z96.642 Presence of left artificial hip joint; Z93.3 Colostomy status; Z20.822 Contact with and (suspected) exposure to COVID-19; Z91.041 Radiographic dye allergy status

== ENCOUNTER 2023-08-11 20:43 | Inpatient (IN) | payer MEDICARE, MEDICAID ==
[~2023-08-11] VITALS: Ht 172.7 cm; Wt 80.3 kg
[~2023-08-11 20:43] MED LIST changes: +ALBU2.5V10 NEB; +IPRA0.00 INH; +METF-1191 PO; +METO1TAB87 PO; +MIRA1POW3 PO; +ROBI1LIQ9 PO
[2023-08-11 22:26] LABS: BASO % 0.2 % (0.0-1.0); EOS # 0.1 10^3/uL (0.0-0.5); EOS % 0.5 % (0.0-3.0); HEMATOCRIT 36.9 % (36.0-47.0); HEMOGLOBIN 13.3 g/dl (12.0-15.5); LYMPH # 0.8 10^3/uL (1.5-5.0); LYMPH % 4.4 % (24.0-44.0); MEAN CORPUSCULAR HEMOGLOBIN 30.4 pg (27.0-33.0); MEAN CORPUSCULAR VOLUME 84.4 fl (80.0-96.0); MONO # 1.3 10^3/uL (0.0-0.8); MONO % 7.5 % (2.0-8.0); NEUTROPHILS # 14.6 10^3/uL (1.5-8.5); NEUTROPHILS % 86.6 % (36.0-66.0); PLATELET COUNT, AUTOMATED 311 10^3/uL (150-450); RED BLOOD COUNT 4.37 10^6/uL (4.00-5.40); WHITE BLOOD COUNT 16.9 10^3/uL (4.0-10.0)
[2023-08-12] MEDS: traZODone 100 MG TAB PO SCH
[2023-08-12] MEDS: METOPROLOL TART 25 MG TABLET PO SCH
[2023-08-12] MEDS: FOLIC ACID 1MG TAB PO SCH
[2023-08-12] MEDS: DEXTROMETHORPHAN 60MG/10ML SUSP 90ML BTL(DELSYM) PO SCH
[2023-08-12] MEDS: guaiFENesin ER TABLET 600 MG TAB PO SCH
[2023-08-12] MEDS: MAGNESIUM OXIDE 400MG TAB (MAG-OX) PO SCH
[2023-08-12] MEDS: SIMVASTATIN 20 MG TAB PO SCH
[2023-08-12] MEDS: MIRTAZAPINE 15 MG TAB PO SCH
[2023-08-12] MEDS: MONTELUKAST 10 MG TAB PO SCH
[2023-08-12] MEDS: PREGABALIN 75 MG CAP(LYRICA) PO SCH
[2023-08-12] MEDS: oxyBUTYnin *DITROPAN XL* 5 MG TABCR PO SCH
[2023-08-12 00:40] LABS: THYROXINE (T4) 12.7 UG/DL (4.5-10.9)
[2023-08-12 00:41] LABS: THYROID STIMULATING HORMONE 3.468 uIU/ML (0.55-4.78)
[2023-08-12 00:48] LABS: ALBUMIN 3.4 G/DL (3.2-5.2); ALKALINE PHOSPHATASE 77 U/L (46-116); ALT/SGPT 47 U/L (7.0-40); AST/SGOT 32 U/L (<34); BILIRUBIN,DIRECT 0.4 MG/DL (<0.4); BILIRUBIN,TOTAL 0.8 MG/DL (0.3-1.2); BLOOD UREA NITROGEN 28 MG/DL (9-23); CARBON DIOXIDE LEVEL 27 MMOL/L (20-31); CHLORIDE LEVEL 84 MMOL/L (98-107); CREATININE FOR GFR 0.71 MG/DL (0.55-1.30); GLOMERULAR FILTRATION RATE > 60.0 (>39); GLUCOSE, FASTING 279 MG/DL (74-106); SODIUM LEVEL 117 MMOL/L (136-145); TOTAL PROTEIN 6.9 G/DL (5.7-8.2)
[2023-08-12] MEDS: NS 1,000 ML IV ONE (01:09)
[2023-08-12] MEDS ORDERED: METO1TAB87 PO (01:22)
[2023-08-12] MEDS ORDERED: METF-1191 PO (01:22)
[2023-08-12] MEDS ORDERED: MAGN400T2 PO (01:22)
[2023-08-12] MEDS ORDERED: NICO14DI6 TD (01:35)
[2023-08-12] MEDS ORDERED: SODI3NEB INH (01:35)
[2023-08-12] MEDS ORDERED: NYST-13 EXT (01:35)
[2023-08-12] MEDS ORDERED: HOME MED LIST COMPLETE! XX SCH (01:45)
[2023-08-12] MEDS ORDERED: GLUCOSE 4GM CHEW TABLET PO PRN (02:55)
[2023-08-12] MEDS ORDERED: NYSTATIN CREAM 15GM EXT PRN (02:55)
[2023-08-12] MEDS ORDERED: GLUCAGON INJ 1MG VIAL SC PRN (02:55)
[2023-08-12] MEDS ORDERED: DEXTROSE 50% 50ML SYRINGE IV PRN (02:55)
[2023-08-12] MEDS ORDERED: ALBUTEROL 90 MCG/ACT 8GM HFA INHALER INH PRN (02:55)
[2023-08-12] MEDS ORDERED: IPRATROPIUM 0.5MG/ALBUTEROL 2.5MG INH SOL UD 3ML (DUONEB) NEB PRN (02:55)
[2023-08-12] MEDS ORDERED: NS 1,000 ML IV SCH (02:55)
[2023-08-12 04:48] LABS: HEMATOCRIT 34.8 % (36.0-47.0); HEMOGLOBIN 12.7 g/dl (12.0-15.5); MEAN CORPUSCULAR HEMOGLOBIN 30.8 pg (27.0-33.0); MEAN CORPUSCULAR HGB CONC 36.5 g/dl (32.0-36.5); MEAN CORPUSCULAR VOLUME 84.5 fl (80.0-96.0); PLATELET COUNT, AUTOMATED 216 10^3/uL (150-450); RED BLOOD COUNT 4.12 10^6/uL (4.00-5.40); WHITE BLOOD COUNT 5.9 10^3/uL (4.0-10.0)
[2023-08-12 05:08] LABS: MAGNESIUM LEVEL 1.8 MG/DL (1.8-2.4)
[2023-08-12 05:09] LABS: BLOOD UREA NITROGEN 17 MG/DL (9-23); CALCIUM LEVEL 8.6 MG/DL (8.3-10.6); CARBON DIOXIDE LEVEL 26 MMOL/L (20-31); CHLORIDE LEVEL 88 MMOL/L (98-107); CREATININE FOR GFR 0.68 MG/DL (0.55-1.30); GLOMERULAR FILTRATION RATE > 60.0 (>39); GLUCOSE, FASTING 331 MG/DL (74-106); POTASSIUM SERUM 4.8 MMOL/L (3.5-5.1); SODIUM LEVEL 120 MMOL/L (136-145)
[2023-08-12] MEDS ORDERED: LevoFLOXacin 750 MG TABLET PO SCH (06:00)
[2023-08-12 06:45] LABS: PROCALCITONIN 0.18 ng/ml
[2023-08-12] MEDS: TIOTROPIUM INHALER/CAPSULE (SPIRIVA) INH SCH (08:35)
[2023-08-12] MEDS: ADVAIR HFA 230/21MCG INHALER INH SCH (08:35)
[2023-08-12] MEDS: ENOXAPARIN 40MG/0.4ML SYRINGE (J1650 PER 10MG) SC SCH (08:51)
[2023-08-12] MEDS: SUCRALFATE SUSP 1GM/10ML UD PO SCH (08:51)
[2023-08-12] MEDS: FERROUS SULFATE 325MG TAB PO SCH (08:52)
[2023-08-12] MEDS: PANTOPRAZOLE 40MG TAB (PROTONIX) PO SCH (08:53)
[2023-08-12] MEDS: CLOPIDOGREL 75 MG TAB PO SCH (08:53)
[2023-08-12] MEDS: NICOTINE 14 MG/24 HR TRANSDERMAL TD SCH (08:55)
[2023-08-12] MEDS: LEVEMIR (INSULIN DETEMIR) 1 UNITS/0.01ML SC SCH (08:55)
[2023-08-12] MEDS: NS 1,000 ML IV SCH (08:55)
[2023-08-12] MEDS: LIDOCAINE 5% (LIDODERM) PATCH TOP SCH (08:55)
[2023-08-12] MEDS: METHENAMINE HIPPURATE 1GM TABLET PO SCH (09:00)
[2023-08-12] MEDS: INSULIN LISPRO (NovoLOG) PER UNIT SC SCH ×2 (09:02→21:00)
[2023-08-12 09:03] LABS: BLOOD UREA NITROGEN 23 MG/DL (9-23); CALCIUM LEVEL 8.9 MG/DL (8.3-10.6); CARBON DIOXIDE LEVEL 28 MMOL/L (20-31); CHLORIDE LEVEL 88 MMOL/L (98-107); CREATININE FOR GFR 0.68 MG/DL (0.55-1.30); GLOMERULAR FILTRATION RATE > 60.0 (>39); GLUCOSE, FASTING 304 MG/DL (74-106); POTASSIUM SERUM 4.9 MMOL/L (3.5-5.1); SODIUM LEVEL 121 MMOL/L (136-145)
[2023-08-12 09:27] LABS: HEMOGLOBIN A1c 7.9 % (4.0-6.0)
[2023-08-12] MEDS: KETOROLAC 30 MG/ML 1ML VIAL IV ONE (13:16)
[2023-08-12 15:30] VITALS: BP 121/66; TEMP 98.1; O2SAT 94
[2023-08-12 15:48] LABS: BLOOD UREA NITROGEN 22 MG/DL (9-23); CALCIUM LEVEL 8.8 MG/DL (8.3-10.6); CARBON DIOXIDE LEVEL 28 MMOL/L (20-31); CHLORIDE LEVEL 91 MMOL/L (98-107); CREATININE FOR GFR 0.73 MG/DL (0.55-1.30); GLOMERULAR FILTRATION RATE > 60.0 (>39); GLUCOSE, FASTING 146 MG/DL (74-106); POTASSIUM SERUM 4.3 MMOL/L (3.5-5.1); SODIUM LEVEL 125 MMOL/L (136-145)
[2023-08-12] MEDS: NS 0.45% 1,000 ML IV SCH (18:31)
[2023-08-12 21:44] LABS: BLOOD UREA NITROGEN 12 MG/DL (9-23); CALCIUM LEVEL 8.6 MG/DL (8.3-10.6); CARBON DIOXIDE LEVEL 23 MMOL/L (20-31); CHLORIDE LEVEL 95 MMOL/L (98-107); CREATININE FOR GFR 0.72 MG/DL (0.55-1.30); GLOMERULAR FILTRATION RATE > 60.0 (>39); GLUCOSE, FASTING 67 MG/DL (74-106); SODIUM LEVEL 126 MMOL/L (136-145)
[2023-08-12 22:00] VITALS: BP 139/62; TEMP 98.8; O2SAT 92
[2023-08-12] MEDS: cefTRIAXone SOD 2 GM in D5W MINI-BAG PLUS 50 ML IV SCH (23:03)
[2023-08-12 23:57] LABS: HEMATOCRIT 35.3 % (36.0-47.0); HEMOGLOBIN 12.8 g/dl (12.0-15.5); MEAN CORPUSCULAR HEMOGLOBIN 30.8 pg (27.0-33.0); MEAN CORPUSCULAR HGB CONC 36.3 g/dl (32.0-36.5); MEAN CORPUSCULAR VOLUME 85.1 fl (80.0-96.0); PLATELET COUNT, AUTOMATED 311 10^3/uL (150-450); RED BLOOD COUNT 4.15 10^6/uL (4.00-5.40); WHITE BLOOD COUNT 10.1 10^3/uL (4.0-10.0)
[2023-08-13 00:25] LABS: CPK CREATINE PHOSPHOKINASE 21 U/L (34-145)
[2023-08-13 00:29] LABS: ALBUMIN 3.2 G/DL (3.2-5.2); ALKALINE PHOSPHATASE 71 U/L (46-116); ALT/SGPT 44 U/L (7.0-40); AST/SGOT 31 U/L (<34); BILIRUBIN,TOTAL 0.5 MG/DL (0.3-1.2); BLOOD UREA NITROGEN 20 MG/DL (9-23); CALCIUM LEVEL 9.1 MG/DL (8.3-10.6); CARBON DIOXIDE LEVEL 25 MMOL/L (20-31); CHLORIDE LEVEL 93 MMOL/L (98-107); CK-MB VALUE MASS 1.9 NG/ML (<3.6); CREATININE FOR GFR 0.76 MG/DL (0.55-1.30); GLOMERULAR FILTRATION RATE > 60.0 (>39); GLUCOSE, FASTING 103 MG/DL (74-106); MB/CK RELATIVE INDEX 9.04 (< OR =4); POTASSIUM SERUM 3.7 MMOL/L (3.5-5.1); SODIUM LEVEL 126 MMOL/L (136-145); TOTAL PROTEIN 6.9 G/DL (5.7-8.2)
[2023-08-13] MEDS: CHLORASEPTIC SPRAY MT PRN (01:06)
[2023-08-13 05:20] VITALS: BP 141/77; TEMP 98.8; O2SAT 89
[2023-08-13 05:53] LABS: BASO % 0.1 % (0.0-1.0); EOS # 0.1 10^3/uL (0.0-0.5); EOS % 0.6 % (0.0-3.0); HEMATOCRIT 38.9 % (36.0-47.0); LYMPH # 1.5 10^3/uL (1.5-5.0); LYMPH % 8.9 % (24.0-44.0); MEAN CORPUSCULAR HEMOGLOBIN 30.8 pg (27.0-33.0); MEAN CORPUSCULAR VOLUME 85.5 fl (80.0-96.0); MONO # 1.8 10^3/uL (0.0-0.8); MONO % 10.3 % (2.0-8.0); NEUTROPHILS # 13.4 10^3/uL (1.5-8.5); NEUTROPHILS % 79.5 % (36.0-66.0); PLATELET COUNT, AUTOMATED 373 10^3/uL (150-450); RED BLOOD COUNT 4.55 10^6/uL (4.00-5.40); WHITE BLOOD COUNT 16.9 10^3/uL (4.0-10.0)
[2023-08-13 06:32] LABS: BLOOD UREA NITROGEN 21 MG/DL (9-23); CALCIUM LEVEL 9.4 MG/DL (8.3-10.6); CARBON DIOXIDE LEVEL 25 MMOL/L (20-31); CHLORIDE LEVEL 91 MMOL/L (98-107); CPK CREATINE PHOSPHOKINASE 31 U/L (34-145); CREATININE FOR GFR 0.78 MG/DL (0.55-1.30); GLOMERULAR FILTRATION RATE > 60.0 (>39); GLUCOSE, FASTING 134 MG/DL (74-106); MB/CK RELATIVE INDEX 6.45 (< OR =4); POTASSIUM SERUM 3.6 MMOL/L (3.5-5.1); SODIUM LEVEL 125 MMOL/L (136-145)
[2023-08-13] MEDS: PANTOPRAZOLE 40MG VIAL IV SCH (09:00)
[2023-08-13] MEDS: MORPHINE 2 MG/ML 1ML VIAL IV ONE (09:05)
[2023-08-13] MEDS: INSULIN LISPRO (NovoLOG) PER UNIT SC SCH (13:11)
[2023-08-13] MEDS: KETOROLAC 30 MG/ML 1ML VIAL IV PRN (13:11)
[2023-08-13 14:00] VITALS: BP 123/67; TEMP 97.9; O2SAT 95
[2023-08-13] MEDS: OXYMETAZOLINE 0.05% NASAL SPRAY (AFRIN) SCH (15:41)
[2023-08-13 19:52] VITALS: BP 99/70; TEMP 99.3; O2SAT 93
[2023-08-14 04:40] VITALS: BP 154/74; TEMP 97.9; O2SAT 95
[2023-08-14 06:54] LABS: BASO % 0.3 % (0.0-1.0); EOS # 0.1 10^3/uL (0.0-0.5); EOS % 1.7 % (0.0-3.0); HEMATOCRIT 31.1 % (36.0-47.0); LYMPH # 0.8 10^3/uL (1.5-5.0); LYMPH % 22.2 % (24.0-44.0); MEAN CORPUSCULAR HEMOGLOBIN 30.8 pg (27.0-33.0); MEAN CORPUSCULAR HGB CONC 35.7 g/dl (32.0-36.5); MEAN CORPUSCULAR VOLUME 86.4 fl (80.0-96.0); MONO # 0.7 10^3/uL (0.0-0.8); MONO % 19.9 % (2.0-8.0); NEUTROPHILS % 55.6 % (36.0-66.0); PLATELET COUNT, AUTOMATED 184 10^3/uL (150-450); WHITE BLOOD COUNT 3.6 10^3/uL (4.0-10.0)
[2023-08-14 07:02] LABS: HEMOGLOBIN 11.1 g/dl (12.0-15.5)
[2023-08-14 07:09] LABS: BLOOD UREA NITROGEN 17 MG/DL (9-23); CALCIUM LEVEL 8.1 MG/DL (8.3-10.6); CARBON DIOXIDE LEVEL 25 MMOL/L (20-31); CHLORIDE LEVEL 94 MMOL/L (98-107); GLOMERULAR FILTRATION RATE > 60.0 (>39); GLUCOSE, FASTING 151 MG/DL (74-106); POTASSIUM SERUM 3.8 MMOL/L (3.5-5.1); SODIUM LEVEL 126 MMOL/L (136-145)
[2023-08-14] MEDS: NS 1,000 ML IV SCH (13:06)
[2023-08-14 14:00] VITALS: BP 140/74; TEMP 97.7; O2SAT 95
[2023-08-14] MEDS ORDERED: DEXTROSE 50% 50ML SYRINGE IV PRN (18:25)
[2023-08-14] MEDS ORDERED: GLUCAGON INJ 1MG VIAL SC PRN (18:25)
[2023-08-14] MEDS ORDERED: GLUCOSE 4GM CHEW TABLET PO PRN (18:25)
[2023-08-14 20:12] VITALS: BP 137/82; TEMP 99.3; O2SAT 92
[2023-08-15] VITALS (7 sets, daily range): BP systolic 134–198; BP diastolic 62–96; TEMP 98.4–99.3; O2SAT 93–99
[2023-08-15] MEDS ORDERED: METOPROLOL TART 25 MG TABLET PO ONE (05:45)
[2023-08-15 06:24] LABS: EOS # 0.1 10^3/uL (0.0-0.5); HEMATOCRIT 30.4 % (36.0-47.0); HEMOGLOBIN 10.7 g/dl (12.0-15.5); LYMPH # 0.6 10^3/uL (1.5-5.0); MEAN CORPUSCULAR HGB CONC 35.2 g/dl (32.0-36.5); MEAN CORPUSCULAR VOLUME 85.2 fl (80.0-96.0); MONO # 0.5 10^3/uL (0.0-0.8); MONO % 21.1 % (2.0-8.0); NEUTROPHILS # 1.3 10^3/uL (1.5-8.5); NEUTROPHILS % 52.5 % (36.0-66.0); PLATELET COUNT, AUTOMATED 170 10^3/uL (150-450); RED BLOOD COUNT 3.57 10^6/uL (4.00-5.40); WHITE BLOOD COUNT 2.5 10^3/uL (4.0-10.0)
[2023-08-15 06:54] LABS: BLOOD UREA NITROGEN 11 MG/DL (9-23); CALCIUM LEVEL 7.7 MG/DL (8.3-10.6); CARBON DIOXIDE LEVEL 24 MMOL/L (20-31); CHLORIDE LEVEL 104 MMOL/L (98-107); CREATININE FOR GFR 0.64 MG/DL (0.55-1.30); GLOMERULAR FILTRATION RATE > 60.0 (>39); GLUCOSE, FASTING 174 MG/DL (74-106); POTASSIUM SERUM 3.5 MMOL/L (3.5-5.1); SODIUM LEVEL 135 MMOL/L (136-145)
[2023-08-15] MEDS ORDERED: INSULIN LISPRO (NovoLOG) PER UNIT SC SCH (07:30)
[2023-08-15] MEDS: LEVEMIR (INSULIN DETEMIR) 1 UNITS/0.01ML SC SCH (08:01)
[2023-08-16 05:34] VITALS: BP 152/71; TEMP 98.1; O2SAT 94
[2023-08-16 05:40] LABS: BASO % 0.3 % (0.0-1.0); EOS # 0.1 10^3/uL (0.0-0.5); EOS % 2.4 % (0.0-3.0); HEMATOCRIT 33.2 % (36.0-47.0); HEMOGLOBIN 11.4 g/dl (12.0-15.5); LYMPH # 0.8 10^3/uL (1.5-5.0); LYMPH % 27.9 % (24.0-44.0); MEAN CORPUSCULAR HGB CONC 34.3 g/dl (32.0-36.5); MEAN CORPUSCULAR VOLUME 87.4 fl (80.0-96.0); MONO # 0.8 10^3/uL (0.0-0.8); MONO % 25.5 % (2.0-8.0); NEUTROPHILS # 1.3 10^3/uL (1.5-8.5); NEUTROPHILS % 43.6 % (36.0-66.0); PLATELET COUNT, AUTOMATED 171 10^3/uL (150-450); WHITE BLOOD COUNT 2.9 10^3/uL (4.0-10.0)
[2023-08-16 06:05] LABS: BLOOD UREA NITROGEN 11 MG/DL (9-23); CALCIUM LEVEL 8.2 MG/DL (8.3-10.6); CARBON DIOXIDE LEVEL 27 MMOL/L (20-31); CHLORIDE LEVEL 105 MMOL/L (98-107); CREATININE FOR GFR 0.69 MG/DL (0.55-1.30); GLOMERULAR FILTRATION RATE > 60.0 (>39); GLUCOSE, FASTING 208 MG/DL (74-106); POTASSIUM SERUM 3.4 MMOL/L (3.5-5.1); SODIUM LEVEL 137 MMOL/L (136-145)
[2023-08-16] MEDS: LEVEMIR (INSULIN DETEMIR) 1 UNITS/0.01ML SC SCH (08:16)
[2023-08-16 14:00] VITALS: BP 125/62; TEMP 98.2; O2SAT 94
[2023-08-16 20:40] VITALS: BP 155/71; TEMP 99.1; O2SAT 94
[2023-08-17 05:23] VITALS: BP 134/68; TEMP 97.6; O2SAT 97
[2023-08-17] MEDS: ARTIFICIAL TEARS DROPS 15ML BTL (VISINE DRY RELIEF) OU PRN (06:04)
[2023-08-17 06:05] LABS: BASO % 0.3 % (0.0-1.0); EOS # 0.1 10^3/uL (0.0-0.5); EOS % 3.3 % (0.0-3.0); HEMATOCRIT 32.2 % (36.0-47.0); HEMOGLOBIN 10.9 g/dl (12.0-15.5); LYMPH # 1.2 10^3/uL (1.5-5.0); LYMPH % 35.7 % (24.0-44.0); MEAN CORPUSCULAR HEMOGLOBIN 29.9 pg (27.0-33.0); MEAN CORPUSCULAR HGB CONC 33.9 g/dl (32.0-36.5); MEAN CORPUSCULAR VOLUME 88.2 fl (80.0-96.0); MONO # 0.8 10^3/uL (0.0-0.8); MONO % 25.2 % (2.0-8.0); NEUTROPHILS # 1.2 10^3/uL (1.5-8.5); NEUTROPHILS % 35.5 % (36.0-66.0); PLATELET COUNT, AUTOMATED 160 10^3/uL (150-450); RED BLOOD COUNT 3.65 10^6/uL (4.00-5.40); WHITE BLOOD COUNT 3.3 10^3/uL (4.0-10.0)
[2023-08-17 06:30] LABS: BLOOD UREA NITROGEN 16 MG/DL (9-23); CALCIUM LEVEL 7.9 MG/DL (8.3-10.6); CARBON DIOXIDE LEVEL 28 MMOL/L (20-31); CHLORIDE LEVEL 106 MMOL/L (98-107); CREATININE FOR GFR 0.75 MG/DL (0.55-1.30); GLOMERULAR FILTRATION RATE > 60.0 (>39); GLUCOSE, FASTING 204 MG/DL (74-106); POTASSIUM SERUM 3.7 MMOL/L (3.5-5.1); SODIUM LEVEL 139 MMOL/L (136-145)
[2023-08-17 14:00] VITALS: BP 130/68; TEMP 98.6; O2SAT 94
[2023-08-17 20:29] VITALS: BP 134/67; TEMP 99.4; O2SAT 92
[2023-08-17] MEDS: FIORICET TAB PO PRN (20:40)
[2023-08-18] VITALS: O2SAT 92
[2023-08-18 06:00] VITALS: BP 146/68; TEMP 97.9; O2SAT 93
[2023-08-18 08:19] VITALS: BP 146/73
[2023-08-18 10:00] VITALS: BP 105/59; TEMP 98.6; O2SAT 95
[2023-08-18 14:00] VITALS: BP 148/73; TEMP 98.1; O2SAT 97
== END 2023-08-18 15:19 | disposition home health service (06) | DRG 641 ==
LOC: M ED 20:43 → EDBD 20:43 → M ED INP 08-12 03:59 → M MSPAV 08-12 15:08
PROVIDERS: ADMIT Family Medicine; ATTEND Student in an Organized Health Care Education/Training Program
DX: E87.1 Hypo-osmolality and hyponatremia (principal); J96.11 Chronic respiratory failure with hypoxia; K56.600 Partial intestinal obstruction, unspecified as to cause; K43.0 Incisional hernia with obstruction, without gangrene; D61.818 Other pancytopenia; N39.0 Urinary tract infection, site not specified; E11.42 Type 2 diabetes mellitus with diabetic polyneuropathy; E11.22 Type 2 diabetes mellitus with diabetic chronic kidney disease; I12.9 Hypertensive chronic kidney disease with stage 1 through stage 4 chronic kidney disease, or unspecified chronic kidney disease; K21.9 Gastro-esophageal reflux disease without esophagitis; E83.42 Hypomagnesemia; J44.9 Chronic obstructive pulmonary disease, unspecified; Z79.4 Long term (current) use of insulin; K74.60 Unspecified cirrhosis of liver; I25.10 Atherosclerotic heart disease of native coronary artery without angina pectoris; M81.0 Age-related osteoporosis without current pathological fracture; N18.9 Chronic kidney disease, unspecified; N32.81 Overactive bladder; F32.A Depression, unspecified; F17.200 Nicotine dependence, unspecified, uncomplicated; Z88.6 Allergy status to analgesic agent; Z88.2 Allergy status to sulfonamides; Z88.0 Allergy status to penicillin; Z88.8 Allergy status to other drugs, medicaments and biological substances; Z79.899 Other long term (current) drug therapy; F41.0 Panic disorder [episodic paroxysmal anxiety]; G43.909 Migraine, unspecified, not intractable, without status migrainosus; M15.9 Polyosteoarthritis, unspecified; Z96.642 Presence of left artificial hip joint; Z98.41 Cataract extraction status, right eye; Z98.42 Cataract extraction status, left eye; G47.00 Insomnia, unspecified; D72.829 Elevated white blood cell count, unspecified; E87.6 Hypokalemia; J45.909 Unspecified asthma, uncomplicated

== ENCOUNTER → 2023-09-16 | Outpatient (CLI) | payer MEDICARE, MEDICAID ==
[~2023-09-16] MED LIST changes: +DOXY-443 PO; -MIRA1POW3 PO; +MIRA33506 PO; +NICO14DI6 TD; +NYST-13 EXT; -OXYB5TAB11 PO; +OXYB5TAB14 PO; +SODI3NEB INH; +diazePAM 5MG TABLET As Ordered ONE; +oxyCODONE 5MG TAB As Ordered ONE
== END ==
LOC: M PAIN 14:15
PROVIDERS: ATTEND Anesthesiology
DX: M79.18 Myalgia, other site (principal); G89.29 Other chronic pain; M54.50 Low back pain, unspecified; J44.9 Chronic obstructive pulmonary disease, unspecified; F32.A Depression, unspecified; I12.9 Hypertensive chronic kidney disease with stage 1 through stage 4 chronic kidney disease, or unspecified chronic kidney disease; E78.5 Hyperlipidemia, unspecified; K21.9 Gastro-esophageal reflux disease without esophagitis; M81.0 Age-related osteoporosis without current pathological fracture; N18.9 Chronic kidney disease, unspecified; E11.42 Type 2 diabetes mellitus with diabetic polyneuropathy; F17.210 Nicotine dependence, cigarettes, uncomplicated; Z79.84 Long term (current) use of oral hypoglycemic drugs; Z79.899 Other long term (current) drug therapy; Z88.0 Allergy status to penicillin; Z88.2 Allergy status to sulfonamides; Z88.6 Allergy status to analgesic agent; Z88.5 Allergy status to narcotic agent; Z88.8 Allergy status to other drugs, medicaments and biological substances; Z91.041 Radiographic dye allergy status
CPT/HCPCS: 20552; J0665

== ENCOUNTER 2023-09-17 12:59 | Emergency (ER) | payer MEDICARE, MEDICAID ==
[~2023-09-17] VITALS: Ht 172.7 cm; Wt 77.7 kg
[~2023-09-17 12:59] MED LIST changes: -DOXY-443 PO
[2023-09-17] MEDS: ACETAMINOPHEN TAB 650MG DOSE (2X325MG) PO ONE (15:34)
[2023-09-17 15:39] LABS: BASO % 0.2 % (0.0-1.0); EOS # 0.1 10^3/uL (0.0-0.5); EOS % 1.5 % (0.0-3.0); HEMATOCRIT 31.4 % (36.0-47.0); HEMOGLOBIN 10.8 g/dl (12.0-15.5); LYMPH # 1.4 10^3/uL (1.5-5.0); MEAN CORPUSCULAR HEMOGLOBIN 29.8 pg (27.0-33.0); MEAN CORPUSCULAR HGB CONC 34.4 g/dl (32.0-36.5); MEAN CORPUSCULAR VOLUME 86.7 fl (80.0-96.0); MONO # 0.7 10^3/uL (0.0-0.8); MONO % 15.9 % (2.0-8.0); NEUTROPHILS # 2.3 10^3/uL (1.5-8.5); NEUTROPHILS % 51.7 % (36.0-66.0); PLATELET COUNT, AUTOMATED 154 10^3/uL (150-450); RED BLOOD COUNT 3.62 10^6/uL (4.00-5.40); WHITE BLOOD COUNT 4.5 10^3/uL (4.0-10.0)
[2023-09-17] MEDS: OXYMETAZOLINE 0.05% NASAL SPRAY (AFRIN) ONE (15:54)
[2023-09-17] MEDS: NS 1,000 ML IV ONE (15:55)
[2023-09-17] MEDS ORDERED: DOXY-443 PO (16:41)
[2023-09-17] MEDS ORDERED: MACR100C43 PO (16:41)
[2023-09-17 19:22] VITALS: BP 148/73; TEMP 98; O2SAT 97
== END 2023-09-17 19:51 | disposition home or self-care (01) ==
LOC: M ED 12:59
DX: N39.0 Urinary tract infection, site not specified (principal); J01.90 Acute sinusitis, unspecified; J47.9 Bronchiectasis, uncomplicated; I12.9 Hypertensive chronic kidney disease with stage 1 through stage 4 chronic kidney disease, or unspecified chronic kidney disease; J45.909 Unspecified asthma, uncomplicated; J44.9 Chronic obstructive pulmonary disease, unspecified; Z86.73 Personal history of transient ischemic attack (TIA), and cerebral infarction without residual deficits; G62.9 Polyneuropathy, unspecified; Z86.14 Personal history of Methicillin resistant Staphylococcus aureus infection; F17.200 Nicotine dependence, unspecified, uncomplicated; Z96.0 Presence of urogenital implants; Z93.3 Colostomy status; Z79.899 Other long term (current) drug therapy; Z88.3 Allergy status to other anti-infective agents; Z88.0 Allergy status to penicillin; Z88.2 Allergy status to sulfonamides; Z88.5 Allergy status to narcotic agent; Z88.8 Allergy status to other drugs, medicaments and biological substances; E83.42 Hypomagnesemia; K76.0 Fatty (change of) liver, not elsewhere classified; E11.21 Type 2 diabetes mellitus with diabetic nephropathy

== ENCOUNTER → 2023-09-17 | Outpatient (REF) | payer MEDICARE, MEDICAID ==
[~2023-09-17] MED LIST changes: -diazePAM 5MG TABLET As Ordered ONE; -oxyCODONE 5MG TAB As Ordered ONE
[2023-09-17 17:49] LABS: BASO % 0.2 % (0.0-1.0); EOS # 0.1 10^3/uL (0.0-0.5); EOS % 1.6 % (0.0-3.0); HEMATOCRIT 32.4 % (36.0-47.0); HEMOGLOBIN 10.6 g/dl (12.0-15.5); LYMPH # 1.3 10^3/uL (1.5-5.0); LYMPH % 29.8 % (24.0-44.0); MEAN CORPUSCULAR HGB CONC 32.7 g/dl (32.0-36.5); MEAN CORPUSCULAR VOLUME 88.8 fl (80.0-96.0); MONO # 0.7 10^3/uL (0.0-0.8); NEUTROPHILS # 2.2 10^3/uL (1.5-8.5); NEUTROPHILS % 51.2 % (36.0-66.0); PLATELET COUNT, AUTOMATED 174 10^3/uL (150-450); RED BLOOD COUNT 3.65 10^6/uL (4.00-5.40); WHITE BLOOD COUNT 4.3 10^3/uL (4.0-10.0)
[2023-09-17 18:05] LABS: HEMOGLOBIN A1c 6.6 % (4.0-6.0)
[2023-09-17 18:08] LABS: ALKALINE PHOSPHATASE 88 U/L (46-116); ALT/SGPT 23 U/L (7.0-40); AST/SGOT 18 U/L (<34); BILIRUBIN,TOTAL 0.3 MG/DL (0.3-1.2); BLOOD UREA NITROGEN 14 MG/DL (9-23); CALCIUM LEVEL 8.3 MG/DL (8.3-10.6); CARBON DIOXIDE LEVEL 27 MMOL/L (20-31); CHLORIDE LEVEL 100 MMOL/L (98-107); CHOLESTEROL LEVEL 94 MG/DL (<200); CHOLESTEROL RISK RATIO 3.45 (<5); CREATININE FOR GFR 0.71 MG/DL (0.55-1.30); GLOMERULAR FILTRATION RATE > 60.0 (>39); GLUCOSE, FASTING 188 MG/DL (74-106); HDL CHOLESTEROL 27.2 MG/DL (>40); LDL CHOLESTEROL 41.2 MG/DL (<100); MAGNESIUM LEVEL 1.6 MG/DL (1.8-2.4); NON-HDL-C 66.8 MG/DL; SODIUM LEVEL 136 MMOL/L (136-145); THYROID STIMULATING HORMONE 3.448 uIU/ML (0.55-4.78); TOTAL PROTEIN 6.4 G/DL (5.7-8.2); TRIGLYCERIDES LEVEL 128 MG/DL (<150)
[2023-09-17 18:10] LABS: FREE T4 1.07 NG/DL (0.89-1.76)
== END ==
LOC: M LAB REF 16:38
PROVIDERS: ATTEND Physician Assistant
DX: E83.42 Hypomagnesemia (principal); K76.0 Fatty (change of) liver, not elsewhere classified; E11.21 Type 2 diabetes mellitus with diabetic nephropathy

== ENCOUNTER → 2023-09-26 | Outpatient (REF) | payer MEDICARE, MEDICAID ==
[~2023-09-26] MED LIST changes: +DOXY-443 PO
== END ==
LOC: M SFHCADAM 15:00
PROVIDERS: ATTEND Physician Assistant
DX: K21.9 Gastro-esophageal reflux disease without esophagitis (principal); E11.21 Type 2 diabetes mellitus with diabetic nephropathy; E83.42 Hypomagnesemia; Z53.9 Procedure and treatment not carried out, unspecified reason

== ENCOUNTER → 2023-10-14 | Outpatient (CLI) | payer MEDICARE, MEDICAID ==
[~2023-10-14] MED LIST changes: -MIRT-60 PO; +MIRT-89 PO
== END ==
LOC: M PAIN 16:30
PROVIDERS: ATTEND Nurse Practitioner Family
DX: M79.10 Myalgia, unspecified site (principal); I10 Essential (primary) hypertension; J44.9 Chronic obstructive pulmonary disease, unspecified; E11.9 Type 2 diabetes mellitus without complications; F17.200 Nicotine dependence, unspecified, uncomplicated; Z79.02 Long term (current) use of antithrombotics/antiplatelets; Z79.52 Long term (current) use of systemic steroids; Z79.899 Other long term (current) drug therapy; Z88.0 Allergy status to penicillin; Z88.1 Allergy status to other antibiotic agents; Z88.2 Allergy status to sulfonamides; Z88.5 Allergy status to narcotic agent; Z88.6 Allergy status to analgesic agent; Z91.041 Radiographic dye allergy status

== ENCOUNTER → 2023-10-15 | Outpatient (CLI) | payer MEDICARE, MEDICAID ==
[~2023-10-15] MED LIST changes: +E-Z-GAS II EFFERVESCENT PACKET (SODIUM BICARB./CITRIC ACID/SIMETHICONE) As Ordered ONE; +E-Z-HD 98% w/w 340GM SUSP BTL As Ordered ONE; +E-Z-PAQUE 96% w/w SUSP 176GM BTL As Ordered ONE
== END ==
LOC: M RAD 07:26
PROVIDERS: ATTEND Physician Assistant
DX: J39.2 Other diseases of pharynx (principal); Z91.89 Other specified personal risk factors, not elsewhere classified

== ENCOUNTER → 2024-01-04 | Outpatient (CLI) | payer MEDICARE, MEDICAID ==
[~2024-01-04] MED LIST changes: +DOXY-323 PO; -DOXY-443 PO; -E-Z-GAS II EFFERVESCENT PACKET (SODIUM BICARB./CITRIC ACID/SIMETHICONE) As Ordered ONE; -E-Z-HD 98% w/w 340GM SUSP BTL As Ordered ONE; -E-Z-PAQUE 96% w/w SUSP 176GM BTL As Ordered ONE; +ONDA-282 PO; -ONDA4TAB6 PO
== END ==
LOC: M PAIN 15:30
PROVIDERS: ATTEND Nurse Practitioner Family
DX: M79.18 Myalgia, other site (principal); M70.62 Trochanteric bursitis, left hip; G89.29 Other chronic pain; J44.9 Chronic obstructive pulmonary disease, unspecified; F32.A Depression, unspecified; G47.00 Insomnia, unspecified; I12.9 Hypertensive chronic kidney disease with stage 1 through stage 4 chronic kidney disease, or unspecified chronic kidney disease; E78.5 Hyperlipidemia, unspecified; K21.9 Gastro-esophageal reflux disease without esophagitis; M81.0 Age-related osteoporosis without current pathological fracture; N18.9 Chronic kidney disease, unspecified; E11.42 Type 2 diabetes mellitus with diabetic polyneuropathy; E11.22 Type 2 diabetes mellitus with diabetic chronic kidney disease; I25.10 Atherosclerotic heart disease of native coronary artery without angina pectoris; F17.210 Nicotine dependence, cigarettes, uncomplicated; Z79.02 Long term (current) use of antithrombotics/antiplatelets; Z79.84 Long term (current) use of oral hypoglycemic drugs; Z79.899 Other long term (current) drug therapy; Z88.0 Allergy status to penicillin; Z88.5 Allergy status to narcotic agent; Z88.6 Allergy status to analgesic agent; Z88.8 Allergy status to other drugs, medicaments and biological substances; Z91.041 Radiographic dye allergy status

== ENCOUNTER → 2024-01-06 | Outpatient (REF) | payer MEDICARE, MEDICAID ==
[2024-01-06 18:05] LABS: HEMATOCRIT 35.9 % (36.0-47.0); HEMOGLOBIN 12.6 g/dl (12.0-15.5); MEAN CORPUSCULAR HEMOGLOBIN 31.6 pg (27.0-33.0); MEAN CORPUSCULAR HGB CONC 35.1 g/dl (32.0-36.5); PLATELET COUNT, AUTOMATED 175 10^3/uL (150-450); RED BLOOD COUNT 3.99 10^6/uL (4.00-5.40); WHITE BLOOD COUNT 3.5 10^3/uL (4.0-10.0)
[2024-01-06 18:31] LABS: ALBUMIN 3.2 G/DL (3.2-5.2); ALKALINE PHOSPHATASE 83 U/L (46-116); ALT/SGPT 19 U/L (7.0-40); AST/SGOT 11 U/L (<34); BILIRUBIN,TOTAL 0.3 MG/DL (0.3-1.2); BLOOD UREA NITROGEN 23 MG/DL (9-23); CARBON DIOXIDE LEVEL 28 MMOL/L (20-31); CHLORIDE LEVEL 102 MMOL/L (98-107); CREATININE FOR GFR 0.78 MG/DL (0.55-1.30); GLOMERULAR FILTRATION RATE > 60.0 (>39); GLUCOSE, FASTING 148 MG/DL (74-106); MAGNESIUM LEVEL 1.7 MG/DL (1.8-2.4); POTASSIUM SERUM 4.2 MMOL/L (3.5-5.1); SODIUM LEVEL 135 MMOL/L (136-145); TOTAL PROTEIN 6.5 G/DL (5.7-8.2)
[2024-01-06 18:32] LABS: HEMOGLOBIN A1c 5.6 % (4.0-6.0)
[2024-01-06 18:33] LABS: VITAMIN B12 LEVEL 344 PG/ML (211-911)
[2024-01-06 18:34] LABS: FOLATE > 24.0 NG/ML (>5.4)
== END ==
LOC: M SFHCADAM 14:27
PROVIDERS: ATTEND Physician Assistant
DX: E11.21 Type 2 diabetes mellitus with diabetic nephropathy (principal); E83.42 Hypomagnesemia; K21.9 Gastro-esophageal reflux disease without esophagitis; M79.2 Neuralgia and neuritis, unspecified

== ENCOUNTER → 2024-01-26 | Outpatient (CLI) | payer MEDICARE, MEDICAID | LOC: M RAD 12:24 | PROVIDERS: ATTEND Nurse Practitioner Family | DX: M79.10 Myalgia, unspecified site (principal); M70.62 Trochanteric bursitis, left hip; Z96.642 Presence of left artificial hip joint; K43.5 Parastomal hernia without obstruction or gangrene ==

== ENCOUNTER → 2024-02-07 | Outpatient (CLI) | payer MEDICARE, MEDICAID | LOC: M PAIN 17:00 | PROVIDERS: ATTEND Nurse Practitioner Family | DX: M70.62 Trochanteric bursitis, left hip (principal); Z79.891 Long term (current) use of opiate analgesic; G89.29 Other chronic pain; J44.9 Chronic obstructive pulmonary disease, unspecified; F32.A Depression, unspecified; G47.00 Insomnia, unspecified; I12.9 Hypertensive chronic kidney disease with stage 1 through stage 4 chronic kidney disease, or unspecified chronic kidney disease; E78.5 Hyperlipidemia, unspecified; K21.9 Gastro-esophageal reflux disease without esophagitis; M81.0 Age-related osteoporosis without current pathological fracture; N18.9 Chronic kidney disease, unspecified; K76.0 Fatty (change of) liver, not elsewhere classified; M15.9 Polyosteoarthritis, unspecified; E11.42 Type 2 diabetes mellitus with diabetic polyneuropathy; E11.22 Type 2 diabetes mellitus with diabetic chronic kidney disease; M54.50 Low back pain, unspecified; I25.10 Atherosclerotic heart disease of native coronary artery without angina pectoris; F17.210 Nicotine dependence, cigarettes, uncomplicated; Z79.84 Long term (current) use of oral hypoglycemic drugs; Z79.899 Other long term (current) drug therapy; Z79.02 Long term (current) use of antithrombotics/antiplatelets; Z88.0 Allergy status to penicillin; Z88.2 Allergy status to sulfonamides; Z88.6 Allergy status to analgesic agent; Z88.5 Allergy status to narcotic agent; Z91.041 Radiographic dye allergy status; Z88.8 Allergy status to other drugs, medicaments and biological substances ==

== ENCOUNTER → 2024-04-04 | Outpatient (CLI) | payer OTHER ==
[~2024-04-04] MED LIST changes: +GABA-1490 PO; -GABA600T4 PO
== END ==
LOC: M PLAIMG 12:25
PROVIDERS: ATTEND Internal Medicine Pulmonary Disease
DX: J98.11 Atelectasis (principal); N28.89 Other specified disorders of kidney and ureter

== ENCOUNTER → 2024-04-10 | Outpatient (CLI) | payer OTHER, MEDICAID ==
[~2024-04-10] MED LIST changes: -DOXY-323 PO; +DOXY-441 PO
== END ==
LOC: M PAIN 16:00
PROVIDERS: ATTEND Nurse Practitioner Family
DX: M79.18 Myalgia, other site (principal); Z79.891 Long term (current) use of opiate analgesic; M70.62 Trochanteric bursitis, left hip; M54.50 Low back pain, unspecified; G89.29 Other chronic pain; J44.9 Chronic obstructive pulmonary disease, unspecified; F32.A Depression, unspecified; G47.00 Insomnia, unspecified; I12.9 Hypertensive chronic kidney disease with stage 1 through stage 4 chronic kidney disease, or unspecified chronic kidney disease; E78.5 Hyperlipidemia, unspecified; K21.9 Gastro-esophageal reflux disease without esophagitis; M81.0 Age-related osteoporosis without current pathological fracture; N18.9 Chronic kidney disease, unspecified; D61.818 Other pancytopenia; I25.10 Atherosclerotic heart disease of native coronary artery without angina pectoris; Z79.899 Other long term (current) drug therapy; Z88.2 Allergy status to sulfonamides; Z88.0 Allergy status to penicillin; Z88.6 Allergy status to analgesic agent; Z88.5 Allergy status to narcotic agent; Z91.041 Radiographic dye allergy status

== ENCOUNTER → 2024-05-25 | Outpatient (CLI) | payer OTHER, MEDICAID ==
[~2024-05-25] MED LIST changes: +TRIAMCINOLONE ACETONIDE SUSP 40MG/ML 1ML VIAL As Ordered ONE; +diazePAM 5MG TABLET As Ordered ONE; +oxyCODONE 5MG TAB As Ordered ONE
== END ==
LOC: M PAIN 16:30
PROVIDERS: ATTEND Anesthesiology
DX: M79.18 Myalgia, other site (principal); G89.29 Other chronic pain; M54.50 Low back pain, unspecified; J44.9 Chronic obstructive pulmonary disease, unspecified; F32.A Depression, unspecified; G47.00 Insomnia, unspecified; I12.9 Hypertensive chronic kidney disease with stage 1 through stage 4 chronic kidney disease, or unspecified chronic kidney disease; E78.5 Hyperlipidemia, unspecified; K21.9 Gastro-esophageal reflux disease without esophagitis; M81.0 Age-related osteoporosis without current pathological fracture; N18.9 Chronic kidney disease, unspecified; E11.42 Type 2 diabetes mellitus with diabetic polyneuropathy; E11.22 Type 2 diabetes mellitus with diabetic chronic kidney disease; I25.10 Atherosclerotic heart disease of native coronary artery without angina pectoris; F17.210 Nicotine dependence, cigarettes, uncomplicated; Z79.02 Long term (current) use of antithrombotics/antiplatelets; Z79.899 Other long term (current) drug therapy; Z79.84 Long term (current) use of oral hypoglycemic drugs; Z88.2 Allergy status to sulfonamides; Z88.5 Allergy status to narcotic agent; Z88.8 Allergy status to other drugs, medicaments and biological substances; Z91.041 Radiographic dye allergy status

== ENCOUNTER → 2024-06-27 | Outpatient (CLI) | payer OTHER, MEDICAID ==
[~2024-06-27] MED LIST changes: +ISOVUE-M 300 61% 15ML VIAL As Ordered ONE; +LIDOCAINE 1% SDV 30ML VIAL As Ordered ONE; +diphenhydrAMINE 25MG CAP As Ordered ONE
== END ==
LOC: M PAIN 14:15
PROVIDERS: ATTEND Anesthesiology
DX: M70.62 Trochanteric bursitis, left hip (principal); G89.29 Other chronic pain; M79.18 Myalgia, other site; M54.50 Low back pain, unspecified; J44.9 Chronic obstructive pulmonary disease, unspecified; F32.A Depression, unspecified; G47.00 Insomnia, unspecified; I12.9 Hypertensive chronic kidney disease with stage 1 through stage 4 chronic kidney disease, or unspecified chronic kidney disease; E78.5 Hyperlipidemia, unspecified; K21.9 Gastro-esophageal reflux disease without esophagitis; M81.0 Age-related osteoporosis without current pathological fracture; N18.9 Chronic kidney disease, unspecified; E11.42 Type 2 diabetes mellitus with diabetic polyneuropathy; E11.22 Type 2 diabetes mellitus with diabetic chronic kidney disease; I25.10 Atherosclerotic heart disease of native coronary artery without angina pectoris; F17.210 Nicotine dependence, cigarettes, uncomplicated; Z79.02 Long term (current) use of antithrombotics/antiplatelets; Z79.899 Other long term (current) drug therapy; Z79.84 Long term (current) use of oral hypoglycemic drugs; Z88.2 Allergy status to sulfonamides; Z88.5 Allergy status to narcotic agent; Z88.8 Allergy status to other drugs, medicaments and biological substances; Z91.041 Radiographic dye allergy status
CPT/HCPCS: 20610; 77002; J0665; J3301; Q9967

== ENCOUNTER → 2024-06-29 | Outpatient (REF) | payer OTHER, MEDICAID ==
[~2024-06-29] MED LIST changes: -ISOVUE-M 300 61% 15ML VIAL As Ordered ONE; -LIDOCAINE 1% SDV 30ML VIAL As Ordered ONE; -TRIAMCINOLONE ACETONIDE SUSP 40MG/ML 1ML VIAL As Ordered ONE; -diazePAM 5MG TABLET As Ordered ONE; -diphenhydrAMINE 25MG CAP As Ordered ONE; -oxyCODONE 5MG TAB As Ordered ONE
[2024-06-29 17:25] LABS: BASO % 0.4 % (0.0-1.0); EOS # 0.1 10^3/uL (0.0-0.5); EOS % 2.4 % (0.0-3.0); HEMOGLOBIN 12.2 g/dl (12.0-15.5); LYMPH # 2.2 10^3/uL (1.5-5.0); LYMPH % 46.5 % (24.0-44.0); MEAN CORPUSCULAR HGB CONC 33.9 g/dl (32.0-36.5); MEAN CORPUSCULAR VOLUME 88.7 fl (80.0-96.0); MONO % 20.6 % (2.0-8.0); NEUTROPHILS # 1.4 10^3/uL (1.5-8.5); NEUTROPHILS % 29.9 % (36.0-66.0); PLATELET COUNT, AUTOMATED 238 10^3/uL (150-450); RED BLOOD COUNT 4.06 10^6/uL (4.00-5.40); WHITE BLOOD COUNT 4.6 10^3/uL (4.0-10.0)
[2024-06-29 17:39] LABS: HEMOGLOBIN A1c 5.5 % (4.0-6.0)
[2024-06-29 17:59] LABS: ALBUMIN 3.3 G/DL (3.2-5.2); ALKALINE PHOSPHATASE 93 U/L (35-104); ALT/SGPT 22 U/L (7.0-40); AST/SGOT 15 U/L (<34); BILIRUBIN,TOTAL 0.4 MG/DL (0.3-1.2); BLOOD UREA NITROGEN 15 MG/DL (9-23); CALCIUM LEVEL 9.8 MG/DL (8.3-10.6); CARBON DIOXIDE LEVEL 29 MMOL/L (20-31); CHLORIDE LEVEL 98 MMOL/L (98-107); CREATININE FOR GFR 0.65 MG/DL (0.55-1.30); GLOMERULAR FILTRATION RATE > 60.0 (>39); GLUCOSE, FASTING 155 MG/DL (74-106); POTASSIUM SERUM 4.5 MMOL/L (3.5-5.1); SODIUM LEVEL 135 MMOL/L (136-145); TOTAL PROTEIN 7.1 G/DL (5.7-8.2)
== END ==
LOC: M SFHCADAM 14:05
PROVIDERS: ATTEND Physician Assistant
DX: J44.9 Chronic obstructive pulmonary disease, unspecified (principal); I10 Essential (primary) hypertension; F17.218 Nicotine dependence, cigarettes, with other nicotine-induced disorders; K76.0 Fatty (change of) liver, not elsewhere classified; E11.21 Type 2 diabetes mellitus with diabetic nephropathy; J47.9 Bronchiectasis, uncomplicated; I25.118 Atherosclerotic heart disease of native coronary artery with other forms of angina pectoris

== ENCOUNTER → 2024-07-25 | Outpatient (CLI) | payer OTHER, MEDICAID ==
[~2024-07-25] MED LIST changes: -ADV500INH INH; +ADVA1AER10 INH
== END ==
LOC: M PAIN 14:00
PROVIDERS: ATTEND Nurse Practitioner Family
DX: M79.18 Myalgia, other site (principal); Z79.891 Long term (current) use of opiate analgesic; G89.29 Other chronic pain; M54.50 Low back pain, unspecified; M25.552 Pain in left hip; J44.9 Chronic obstructive pulmonary disease, unspecified; F32.A Depression, unspecified; G47.00 Insomnia, unspecified; I12.9 Hypertensive chronic kidney disease with stage 1 through stage 4 chronic kidney disease, or unspecified chronic kidney disease; E78.5 Hyperlipidemia, unspecified; K21.9 Gastro-esophageal reflux disease without esophagitis; M81.0 Age-related osteoporosis without current pathological fracture; N18.9 Chronic kidney disease, unspecified; E11.42 Type 2 diabetes mellitus with diabetic polyneuropathy; E11.22 Type 2 diabetes mellitus with diabetic chronic kidney disease; F17.210 Nicotine dependence, cigarettes, uncomplicated; Z79.02 Long term (current) use of antithrombotics/antiplatelets; Z79.84 Long term (current) use of oral hypoglycemic drugs; Z79.899 Other long term (current) drug therapy; Z88.0 Allergy status to penicillin; Z88.2 Allergy status to sulfonamides; Z88.5 Allergy status to narcotic agent; Z88.6 Allergy status to analgesic agent; Z88.8 Allergy status to other drugs, medicaments and biological substances; Z91.041 Radiographic dye allergy status

== ENCOUNTER → 2024-11-30 | Outpatient (REF) | payer MEDICARE ==
[~2024-11-30] MED LIST changes: -FLOM0.4C39 PO; +MORP-138 PO; -MORP15TASA PO; -NYST-13 EXT; +NYST0.1C EXT; -PREG50CA PO; +PREG50CA87 PO; -SUCR1ORA2 PO; +SUCR1ORA20 PO; +TAMS-18 PO
[2024-11-30 15:53] LABS: APPEARANCE, URINE HAZY (CLEAR); BACTERIA, URINE AUTO 1+ (NEGATIVE); BILIRUBIN, URINE AUTO NEGATIVE (NEGATIVE); BLOOD, URINE BLOOD 3+ (NEGATIVE); COLOR, URINE STRAW (YELLOW); GLUCOSE, URINE (UA) AUTO NEGATIVE (NEGATIVE); KETONE, URINE AUTO NEGATIVE (NEGATIVE); LEUKOCYTE ESTERASE, URINE AUTO 3+ (NEGATIVE); MUCUS, URINE SMALL (NEGATIVE); NITRITE, URINE AUTO NEGATIVE (NEGATIVE); PROTEIN, URINE AUTO NEGATIVE (NEGATIVE); RBC, URINE AUTO 65 /HPF (0-3); SPECIFIC GRAVITY URINE AUTO 1.005 (1.002-1.035); SQUAMOUS EPITHELIAL CELL UR AU 1 /HPF (0-6); UROBILINOGEN, URINE AUTO 0.2 mg/dL (0.0-2.0); WBC, URINE AUTO 106 /HPF (0-3)
== END ==
LOC: M SMT 15:19
PROVIDERS: ATTEND Physician Assistant
DX: R39.9 Unspecified symptoms and signs involving the genitourinary system (principal)

== ENCOUNTER → 2025-02-01 | Outpatient (REF) | payer MEDICARE ==
[~2025-02-01] MED LIST changes: +CEFD300CAP PO; +LEVO75TAB PO; +OXYC-517 PO; +TRAZ-252 PO
[2025-02-01 13:54] LABS: APPEARANCE, URINE MANUAL TURBID (CLEAR); COLOR, URINE MANUAL YELLOW (YELLOW)
[2025-02-01 13:56] LABS: GLUCOSE, URINE (UA) MANUAL NEGATIVE (NEGATIVE); KETONE, URINE MANUAL NEGATIVE (NEGATIVE); PH,URINE MAN 5.0 UNITS (5.0 - 7.0); PROTEIN, URINE MANUAL 2+ mg/dL (NEGATIVE); SPECIFIC GRAVITY,URINE MANUAL 1.015 (1.002-1.035); UROBILINOGEN, URINE MANUAL NORMAL (NORMAL)
[2025-02-01 13:57] LABS: BILIRUBIN, URINE MANUAL NEGATIVE (NEGATIVE); BLOOD URINE MANUAL POSITIVE (NEGATIVE); LEUKOCYTE ESTERASE, URINE MAN POSITIVE (NEGATIVE); NITRITE, URINE MANUAL POSITIVE (NEGATIVE)
[2025-02-01 14:07] LABS: SQUAMOUS EPITHELIAL CELL URINE NONE SEEN /hpf (SMALL AMT); WBC, URINE 20-30 /hpf (0-3)
[2025-02-01 14:08] LABS: BACTERIA, URINE MOD AMOUNT; HYALINE CAST, URINE NONE SEEN /lpf (0-1)
== END ==
LOC: M SMT 12:48
PROVIDERS: ATTEND Physician Assistant
DX: R39.9 Unspecified symptoms and signs involving the genitourinary system (principal)

== ENCOUNTER → 2025-03-06 | Outpatient (CLI) | payer MEDICARE | LOC: M RAD 15:19 | PROVIDERS: ATTEND Pain Medicine Interventional Pain Medicine | DX: M96.1 Postlaminectomy syndrome, not elsewhere classified (principal); M47.816 Spondylosis without myelopathy or radiculopathy, lumbar region; R90.89 Other abnormal findings on diagnostic imaging of central nervous system ==

== ENCOUNTER → 2025-04-18 | Outpatient (CLI) | payer MEDICARE, MEDICAID ==
[~2025-04-18] MED LIST changes: -DIPH50CA PO; +DIPH50CA31 PO; +METH-1100 PO; -METH-855 PO; +VARE1TAB7 PO
== END ==
LOC: M PLAIMG 12:22
PROVIDERS: ATTEND Internal Medicine Pulmonary Disease
DX: R91.8 Other nonspecific abnormal finding of lung field (principal); J47.9 Bronchiectasis, uncomplicated

== ENCOUNTER 2025-04-28 13:41 | Emergency (ER) | payer MEDICARE, MEDICAID ==
[~2025-04-28 13:41] MED LIST changes: -VARE1TAB7 PO
[2025-04-28 13:52] VITALS: TEMP 98.8
[2025-04-28 15:00] VITALS: BP 133/75; O2SAT 96
[2025-04-28] MEDS ORDERED: VARE1TAB7 PO (15:12)
== END 2025-04-28 15:30 | disposition home or self-care (01) ==
LOC: M ED 13:41
DX: R82.998 Other abnormal findings in urine (principal); T50.905A Adverse effect of unspecified drugs, medicaments and biological substances, initial encounter; E11.9 Type 2 diabetes mellitus without complications; I10 Essential (primary) hypertension; E78.5 Hyperlipidemia, unspecified; J44.9 Chronic obstructive pulmonary disease, unspecified; Z86.19 Personal history of other infectious and parasitic diseases; K21.9 Gastro-esophageal reflux disease without esophagitis; F32.A Depression, unspecified; Z79.84 Long term (current) use of oral hypoglycemic drugs; Z79.899 Other long term (current) drug therapy; Z91.041 Radiographic dye allergy status; Z88.0 Allergy status to penicillin; Z88.2 Allergy status to sulfonamides; Z88.5 Allergy status to narcotic agent; Z88.8 Allergy status to other drugs, medicaments and biological substances

== ENCOUNTER → 2025-05-10 | Outpatient (REF) | payer MEDICARE ==
[~2025-05-10] MED LIST changes: +VARE1TAB7 PO
[2025-05-10 17:10] LABS: BASO # 0.0 10^3/uL (0.0-0.2); BASO % 0.3 % (0.0-1.0); EOS # 0.1 10^3/uL (0.0-0.5); EOS % 4.0 % (0.0-3.0); LYMPH # 1.6 10^3/uL (1.5-5.0); LYMPH % 46.9 % (24.0-44.0); MONO # 0.8 10^3/uL (0.0-0.8); MONO % 22.0 % (2.0-8.0); NEUTROPHILS % 26.5 % (36.0-66.0); PLATELET COUNT, AUTOMATED 207 10^3/uL (150-450)
[2025-05-10 17:15] LABS: FREE T4 1.26 NG/DL (0.89-1.76)
[2025-05-10 17:16] LABS: ALT/SGPT 18 U/L (7.0-40); AST/SGOT 19 U/L (<34); CALCIUM LEVEL 9.4 MG/DL (8.3-10.6); CARBON DIOXIDE LEVEL 31 MMOL/L (20-31); CHLORIDE LEVEL 95 MMOL/L (98-107); CHOLESTEROL LEVEL 130 MG/DL (<200); CHOLESTEROL RISK RATIO 3.76 (<5); CREATININE FOR GFR 0.85 MG/DL (0.55-1.30); GLOMERULAR FILTRATION RATE 69.7 (>39); LDL CHOLESTEROL 50.5 MG/DL (<100); NON-HDL-C 95.5 MG/DL; POTASSIUM SERUM 4.6 MMOL/L (3.5-5.1); SODIUM LEVEL 135 MMOL/L (136-145); TRIGLYCERIDES LEVEL 225 MG/DL (<150)
[2025-05-10 17:17] LABS: VITAMIN B12 LEVEL 472 PG/ML (211-911)
[2025-05-10 17:34] LABS: NEUTROPHILS # 0.9 10^3/uL (1.5-8.5)
[2025-05-10 17:37] LABS: ESTIMATED AVERAGE GLUCOSE 111.0 MG/DL (60-110)
== END ==
LOC: M SFHCADAM 14:30
PROVIDERS: ATTEND Physician Assistant
DX: E11.21 Type 2 diabetes mellitus with diabetic nephropathy (principal); Z23 Encounter for immunization; G89.4 Chronic pain syndrome; I25.118 Atherosclerotic heart disease of native coronary artery with other forms of angina pectoris; J44.9 Chronic obstructive pulmonary disease, unspecified; Z93.50 Unspecified cystostomy status; Z87.440 Personal history of urinary (tract) infections; Z93.59 Other cystostomy status; F17.218 Nicotine dependence, cigarettes, with other nicotine-induced disorders; M51.362 Other intervertebral disc degeneration, lumbar region with discogenic back pain and lower extremity pain; M54.16 Radiculopathy, lumbar region; R53.1 Weakness; R26.2 Difficulty in walking, not elsewhere classified

== ENCOUNTER → 2025-06-11 | Outpatient (REF) | payer MEDICARE ==
[~2025-06-11] MED LIST changes: +ALBU2.5V10 INH; -BACTDSTA PO; +CEFD1CAP9 PO; +METO25TA4 PO; -OXYC20TA64 PO; +OXYC20TA66 PO; +SULF-8 PO; +TRAZ-189 PO
[2025-06-11 15:21] LABS: AMORPHOUS SEDIMENT SMALL (NEGATIVE); APPEARANCE, URINE CLOUDY (CLEAR); BACTERIA, URINE AUTO 2+ (NEGATIVE); BILIRUBIN, URINE AUTO NEGATIVE (NEGATIVE); BLOOD, URINE BLOOD 1+ (NEGATIVE); GLUCOSE, URINE (UA) AUTO NEGATIVE (NEGATIVE); KETONE, URINE AUTO NEGATIVE (NEGATIVE); LEUKOCYTE ESTERASE, URINE AUTO 2+ (NEGATIVE); MUCUS, URINE SMALL (NEGATIVE); NITRITE, URINE AUTO POSITIVE (NEGATIVE); PROTEIN, URINE AUTO 1+ mg/dL (NEGATIVE); RBC, URINE AUTO 0 /HPF (0-3); SPECIFIC GRAVITY URINE AUTO 1.017 (1.002-1.035); SQUAMOUS EPITHELIAL CELL UR AU 1 /HPF (0-6); UROBILINOGEN, URINE AUTO 0.2 mg/dL (0.0-2.0); WBC, URINE AUTO 21 /HPF (0-3)
== END ==
LOC: M SMT 14:56
PROVIDERS: ATTEND Physician Assistant
DX: N39.0 Urinary tract infection, site not specified (principal)

== ENCOUNTER 2025-06-12 19:35 | Inpatient (IN) | payer MEDICARE, MEDICAID ==
[~2025-06-12] VITALS: Ht 172.7 cm; Wt 72.7 kg
[~2025-06-12 19:35] MED LIST changes: -ALBU2.5V10 INH; -CEFD1CAP9 PO; -METO25TA4 PO; -TRAZ-189 PO
[2025-06-12] MEDS: NS (Normal Saline) 0.9% 1,000 ML IV ONE (20:37)
[2025-06-12] MEDS: ONDANSETRON 4MG/2ML VIAL IV ONE (20:37)
[2025-06-12] MEDS: ACETAMINOPHEN *IV* 1,000 MG in IV 1 EA IV ONE (20:38)
[2025-06-12] MEDS: MORPHINE 4 MG/ML 1 ML VIAL IV PRN (20:38)
[2025-06-12 20:44] LABS: BASO # 0.0 10^3/uL (0.0-0.2); BASO % 0.3 % (0.0-1.0); EOS # 0.1 10^3/uL (0.0-0.5); EOS % 2.4 % (0.0-3.0); LYMPH # 1.7 10^3/uL (1.5-5.0); LYMPH % 28.2 % (24.0-44.0); MONO # 1.4 10^3/uL (0.0-0.8); MONO % 23.7 % (2.0-8.0); NEUTROPHILS # 2.7 10^3/uL (1.5-8.5); NEUTROPHILS % 45.1 % (36.0-66.0); PLATELET COUNT, AUTOMATED 269 10^3/uL (150-450)
[2025-06-12 20:46] LABS: KETONE, URINE AUTO RFX NEGATIVE (NEGATIVE); NITRITE, URINE AUTO RFX NEGATIVE (NEGATIVE); RBC, URINE AUTO RFX 2 /HPF (0-3); SQUAM EPITHELIAL CELL UR AURFX 0 /HPF (0-6)
[2025-06-12 20:47] LABS: LEUKOCYTE ESTERASE UR AUTO RFX 2+ (NEGATIVE); WBC, URINE AUTO RFX 22 /HPF (0-3)
[2025-06-12] MEDS: cefTRIAXone SOD 2 GM in DEXTROSE 5% (D5W) ADV/MINI-BAG 50 ML IV ONE (20:50)
[2025-06-12 21:20] LABS: ALT/SGPT 14.0 U/L (7.0-40); AST/SGOT 23.0 U/L (<34); CALCIUM LEVEL 9.2 MG/DL (8.3-10.6); CARBON DIOXIDE LEVEL 32.0 MMOL/L (20-31); CHLORIDE LEVEL 94.0 MMOL/L (98-107); CREATININE FOR GFR 0.73 MG/DL (0.55-1.30); GLOMERULAR FILTRATION RATE 83.6 (>39); MAGNESIUM LEVEL 1.9 MG/DL (1.8-2.4); POTASSIUM SERUM 4.5 MMOL/L (3.5-5.1); SODIUM LEVEL 136.0 MMOL/L (136-145)
[2025-06-12] MEDS ORDERED: ALBUTEROL SULFATE 2.5 MG/0.5 ML INH CONCENTRATE NEB SOLN NEB PRN (23:35)
[2025-06-12] MEDS ORDERED: MOM 30 ML SUSPENSION UDC PO PRN (23:55)
[2025-06-13] MEDS: IPRATROPIUM 0.5 MG/ALBUTEROL 2.5 MG INH SOL UD 3 ML NEB SCH (00:02)
[2025-06-13] MEDS: MAG SULF 1GM/100ML (MAG RUN) 1 GM in IV 1 EA IV ONE (00:07)
[2025-06-13] MEDS: NS (Normal Saline) 0.9% 1,000 ML IV SCH (00:07)
[2025-06-13] MEDS ORDERED: DEXTROSE 50% 50 ML SYRINGE IV PRN (00:15)
[2025-06-13] MEDS ORDERED: GLUCOSE 4 GM CHEW PO PRN (00:15)
[2025-06-13] MEDS ORDERED: ONDANSETRON 4MG/2ML VIAL IV PRN (00:15)
[2025-06-13] MEDS ORDERED: GLUCAGON INJ 1 MG VIAL SC PRN (00:15)
[2025-06-13] MEDS: AZITHROMYCIN INJ 500 MG, VIAL MATE ADAPTER 1 EACH in NS 250 ML IV ONE (01:50)
[2025-06-13] MEDS: INSULIN LISPRO (NovoLOG) PER UNIT SC SCH (08:00)
[2025-06-13 08:36] LABS: BASO # 0.0 10^3/uL (0.0-0.2); BASO % 0.9 % (0.0-1.0); EOS # 0.1 10^3/uL (0.0-0.5); EOS % 4.4 % (0.0-3.0); LYMPH # 0.7 10^3/uL (1.5-5.0); LYMPH % 30.6 % (24.0-44.0); MONO # 0.6 10^3/uL (0.0-0.8); MONO % 25.8 % (2.0-8.0); NEUTROPHILS % 37.4 % (36.0-66.0)
[2025-06-13 08:52] LABS: NEUTROPHILS # 0.9 10^3/uL (1.5-8.5)
[2025-06-13 08:53] LABS: CALCIUM LEVEL 7.8 MG/DL (8.3-10.6); CARBON DIOXIDE LEVEL 26.0 MMOL/L (20-31); CHLORIDE LEVEL 100.0 MMOL/L (98-107); CREATININE FOR GFR 0.66 MG/DL (0.55-1.30); GLOMERULAR FILTRATION RATE 89.2 (>39); PLATELET COUNT, AUTOMATED 166 10^3/uL (150-450); POTASSIUM SERUM 4.1 MMOL/L (3.5-5.1); SODIUM LEVEL 136.0 MMOL/L (136-145)
[2025-06-13] MEDS ORDERED: TRAZ-189 PO (10:08)
[2025-06-13] MEDS ORDERED: SODI3NEB INH (10:08)
[2025-06-13] MEDS ORDERED: METO25TA4 PO (10:08)
[2025-06-13] MEDS ORDERED: CEFD1CAP9 PO (10:08)
[2025-06-13] MEDS ORDERED: ALBU2.5V10 INH (10:08)
[2025-06-13] MEDS ORDERED: HOME MED LIST COMPLETE! XX SCH (10:10)
[2025-06-13] MEDS ORDERED: SODIUM CHLORIDE HYPERTONIC 3% 4ML NEB SOL INH PRN (10:20)
[2025-06-13] MEDS: ENOXAPARIN 40 MG/0.4 ML SYRINGE (J1650 PER 10MG) SC SCH (10:35)
[2025-06-13] MEDS: FOLIC ACID 1 MG TAB PO SCH (10:59)
[2025-06-13] MEDS: CLOPIDOGREL 75 MG TAB PO SCH (10:59)
[2025-06-13] MEDS: MAGNESIUM OXIDE 400 MG TAB PO SCH (11:00)
[2025-06-13] MEDS: LIDOCAINE 5% PATCH TOP SCH (11:01)
[2025-06-13] MEDS: SUCRALFATE SUSP 1GM/10ML UD PO SCH (11:07)
[2025-06-13] MEDS: PREGABALIN 75 MG CAP PO SCH (11:08)
[2025-06-13] MEDS: PANTOPRAZOLE 40MG TAB PO SCH (11:08)
[2025-06-13] MEDS: METOPROLOL TART 25 MG TABLET PO SCH (11:08)
[2025-06-13 12:00] VITALS: BP 113/56; TEMP 98.6; O2SAT 93
[2025-06-13] MEDS: ADVAIR HFA 230/21 MCG INHALER INH SCH (12:23)
[2025-06-13] MEDS: METHENAMINE HIPPURATE 1 GM TABLET PO SCH (14:25)
[2025-06-13 17:41] VITALS: BP 122/63; TEMP 98.7; O2SAT 93
[2025-06-13 20:07] VITALS: BP 111/63; TEMP 98.9; O2SAT 94
[2025-06-13] MEDS: cefTRIAXone SOD 2 GM in DEXTROSE 5% (D5W) ADV/MINI-BAG 50 ML IV SCH (21:50)
[2025-06-13] MEDS: AZITHROMYCIN 250 MG TABLET PO SCH (21:50)
[2025-06-13] MEDS: SIMVASTATIN 20 MG TAB PO SCH (21:51)
[2025-06-13] MEDS: MIRTAZAPINE 15 MG TAB PO SCH (21:51)
[2025-06-13] MEDS: traZODone 100 MG TAB PO SCH (21:51)
[2025-06-13] MEDS: MONTELUKAST 10 MG TAB PO SCH (21:51)
[2025-06-14 04:18] VITALS: BP 105/53; TEMP 98.4; O2SAT 93
[2025-06-14 07:22] LABS: BASO # 0.0 10^3/uL (0.0-0.2); BASO % 0.4 % (0.0-1.0); EOS # 0.1 10^3/uL (0.0-0.5); EOS % 3.3 % (0.0-3.0); LYMPH # 0.9 10^3/uL (1.5-5.0); LYMPH % 37.6 % (24.0-44.0); MONO # 0.7 10^3/uL (0.0-0.8); MONO % 27.7 % (2.0-8.0); NEUTROPHILS % 30.2 % (36.0-66.0); PLATELET COUNT, AUTOMATED 184 10^3/uL (150-450)
[2025-06-14 07:33] LABS: NEUTROPHILS # 0.7 10^3/uL (1.5-8.5)
[2025-06-14 07:44] LABS: CALCIUM LEVEL 8.2 MG/DL (8.3-10.6); CARBON DIOXIDE LEVEL 31.0 MMOL/L (20-31); CHLORIDE LEVEL 100.0 MMOL/L (98-107); CREATININE FOR GFR 0.79 MG/DL (0.55-1.30); GLOMERULAR FILTRATION RATE 76.0 (>39); POTASSIUM SERUM 4.4 MMOL/L (3.5-5.1); SODIUM LEVEL 140.0 MMOL/L (136-145)
[2025-06-14 12:08] VITALS: BP 109/55; TEMP 97.9; O2SAT 94
[2025-06-14] MEDS: MEROPENEM 1 GM in IV 1 EA IV SCH (13:21)
[2025-06-14 20:07] VITALS: BP 123/59; TEMP 98.7; O2SAT 95
[2025-06-15 05:18] VITALS: BP 116/56; TEMP 98.7; O2SAT 90
[2025-06-15 07:00] LABS: PLATELET COUNT, AUTOMATED 198 10^3/uL (150-450)
[2025-06-15 07:25] LABS: CALCIUM LEVEL 8.3 MG/DL (8.3-10.6); CARBON DIOXIDE LEVEL 32.0 MMOL/L (20-31); CHLORIDE LEVEL 102.0 MMOL/L (98-107); CREATININE FOR GFR 0.73 MG/DL (0.55-1.30); GLOMERULAR FILTRATION RATE 83.6 (>39); POTASSIUM SERUM 4.3 MMOL/L (3.5-5.1); SODIUM LEVEL 141.0 MMOL/L (136-145)
[2025-06-15 07:31] LABS: EOSINOPHILS 1 % (0-3); LYMPHOCYTES 46 % (16-44); MONOCYTES 23 % (0-5); NEUTROPHILS 30 % (28-66)
[2025-06-15 07:33] LABS: PLATELET ESTIMATE NORMAL (NORMAL)
[2025-06-15 08:45] VITALS: BP 124/58; TEMP 98.7
[2025-06-15 11:56] VITALS: BP 118/56; TEMP 98.5; O2SAT 94
[2025-06-15 17:34] LABS: CPK CREATINE PHOSPHOKINASE 26.0 U/L (34-145)
[2025-06-15] MEDS ORDERED: DAPTOmycin 300 MG in NS 50 ML IV SCH (18:00)
[2025-06-15 20:46] VITALS: BP 118/58; TEMP 100.1; O2SAT 91
[2025-06-16 03:55] VITALS: BP 116/55; TEMP 97.9; O2SAT 92
[2025-06-16 12:00] VITALS: BP 117/60; TEMP 98.7; O2SAT 93
[2025-06-16] MEDS: ACETAMINOPHEN 325 MG TAB PO PRN (21:20)
[2025-06-17 04:03] VITALS: BP 123/58; TEMP 98; O2SAT 92
[2025-06-17 06:34] LABS: BASO # 0.0 10^3/uL (0.0-0.2); BASO % 0.6 % (0.0-1.0); EOS # 0.1 10^3/uL (0.0-0.5); EOS % 6.1 % (0.0-3.0); LYMPH # 0.7 10^3/uL (1.5-5.0); LYMPH % 41.3 % (24.0-44.0); MONO # 0.5 10^3/uL (0.0-0.8); MONO % 30.2 % (2.0-8.0); NEUTROPHILS % 20.7 % (36.0-66.0); PLATELET COUNT, AUTOMATED 189 10^3/uL (150-450)
[2025-06-17 06:47] LABS: CALCIUM LEVEL 8.4 MG/DL (8.3-10.6); CARBON DIOXIDE LEVEL 32.0 MMOL/L (20-31); CHLORIDE LEVEL 102.0 MMOL/L (98-107); CREATININE FOR GFR 0.71 MG/DL (0.55-1.30); GLOMERULAR FILTRATION RATE 86.4 (>39); POTASSIUM SERUM 4.3 MMOL/L (3.5-5.1); SODIUM LEVEL 140.0 MMOL/L (136-145)
[2025-06-17 07:06] LABS: NEUTROPHILS # 0.4 10^3/uL (1.5-8.5)
[2025-06-17 11:40] VITALS: BP 124/56; TEMP 98.2; O2SAT 94
[2025-06-17 20:18] VITALS: BP 142/64; TEMP 98.7; O2SAT 95
[2025-06-18 04:36] VITALS: BP 105/55; TEMP 98; O2SAT 96
[2025-06-18 06:27] LABS: BASO # 0.0 10^3/uL (0.0-0.2); BASO % 0.8 % (0.0-1.0); EOS # 0.2 10^3/uL (0.0-0.5); EOS % 6.5 % (0.0-3.0); LYMPH # 1.1 10^3/uL (1.5-5.0); LYMPH % 42.7 % (24.0-44.0); MONO # 0.7 10^3/uL (0.0-0.8); MONO % 29.3 % (2.0-8.0); NEUTROPHILS % 20.3 % (36.0-66.0); PLATELET COUNT, AUTOMATED 198 10^3/uL (150-450)
[2025-06-18 06:29] LABS: NEUTROPHILS # 0.5 10^3/uL (1.5-8.5)
[2025-06-18 06:52] LABS: CALCIUM LEVEL 8.1 MG/DL (8.3-10.6); CARBON DIOXIDE LEVEL 33.0 MMOL/L (20-31); CHLORIDE LEVEL 104.0 MMOL/L (98-107); CREATININE FOR GFR 0.7 MG/DL (0.55-1.30); GLOMERULAR FILTRATION RATE 87.9 (>39); POTASSIUM SERUM 4.3 MMOL/L (3.5-5.1); SODIUM LEVEL 143.0 MMOL/L (136-145)
[2025-06-18 12:15] VITALS: BP 131/64; TEMP 98.2; O2SAT 95
[2025-06-18] MEDS: NS 500 ML IV ONE (13:25)
[2025-06-18 21:34] VITALS: BP 121/63; TEMP 98.3; O2SAT 98
[2025-06-19 05:24] VITALS: BP 124/58; TEMP 98.3; O2SAT 100
[2025-06-19 07:38] LABS: BASO # 0.0 10^3/uL (0.0-0.2); BASO % 0.4 % (0.0-1.0); EOS # 0.1 10^3/uL (0.0-0.5); EOS % 5.4 % (0.0-3.0); LYMPH # 1.0 10^3/uL (1.5-5.0); LYMPH % 44.2 % (24.0-44.0); MONO # 0.6 10^3/uL (0.0-0.8); MONO % 25.4 % (2.0-8.0); NEUTROPHILS % 24.2 % (36.0-66.0); PLATELET COUNT, AUTOMATED 171 10^3/uL (150-450)
[2025-06-19 08:05] LABS: CALCIUM LEVEL 8.3 MG/DL (8.3-10.6); CARBON DIOXIDE LEVEL 32.0 MMOL/L (20-31); CHLORIDE LEVEL 102.0 MMOL/L (98-107); CREATININE FOR GFR 0.65 MG/DL (0.55-1.30); GLOMERULAR FILTRATION RATE 89.5 (>39); POTASSIUM SERUM 4.4 MMOL/L (3.5-5.1); SODIUM LEVEL 140.0 MMOL/L (136-145)
[2025-06-19 08:35] LABS: NEUTROPHILS # 0.5 10^3/uL (1.5-8.5)
[2025-06-19 11:50] VITALS: BP 119/67; TEMP 98.4; O2SAT 96
[2025-06-19 20:02] VITALS: BP 145/65; TEMP 98.2; O2SAT 97
[2025-06-20 04:38] VITALS: BP 122/59; TEMP 97; O2SAT 93
[2025-06-20 12:00] VITALS: BP 124/60; TEMP 98.6; O2SAT 94
[2025-06-20 20:39] VITALS: BP 151/70; TEMP 98.3; O2SAT 96
[2025-06-21 04:12] VITALS: BP 113/55; TEMP 98.4; O2SAT 95
[2025-06-21 07:31] LABS: BASO # 0.0 10^3/uL (0.0-0.2); BASO % 0.6 % (0.0-1.0); EOS # 0.1 10^3/uL (0.0-0.5); EOS % 3.4 % (0.0-3.0); LYMPH # 1.1 10^3/uL (1.5-5.0); LYMPH % 34.8 % (24.0-44.0); MONO # 0.5 10^3/uL (0.0-0.8); MONO % 16.0 % (2.0-8.0); NEUTROPHILS # 1.4 10^3/uL (1.5-8.5); NEUTROPHILS % 44.9 % (36.0-66.0); PLATELET COUNT, AUTOMATED 192 10^3/uL (150-450)
[2025-06-21 08:02] LABS: CALCIUM LEVEL 8.6 MG/DL (8.3-10.6); CARBON DIOXIDE LEVEL 32.0 MMOL/L (20-31); CHLORIDE LEVEL 102.0 MMOL/L (98-107); CREATININE FOR GFR 0.67 MG/DL (0.55-1.30); GLOMERULAR FILTRATION RATE 88.9 (>39); POTASSIUM SERUM 4.2 MMOL/L (3.5-5.1); SODIUM LEVEL 141.0 MMOL/L (136-145)
[2025-06-21 12:00] VITALS: BP 123/58; TEMP 97.3; O2SAT 95
[2025-06-21 19:44] VITALS: BP 129/74; TEMP 98.4; O2SAT 95
[2025-06-21] MEDS: DICLOFENAC EPOLAMINE 1.3% PATCH TOP SCH (21:00)
[2025-06-22 03:35] VITALS: BP 127/58; TEMP 97.3; O2SAT 97
[2025-06-22 09:46] VITALS: BP 137/65
[2025-06-22 12:00] VITALS: BP 131/70; TEMP 98.3; O2SAT 93
== END 2025-06-22 15:36 | disposition left against medical advice (07) | DRG 871 ==
LOC: EDBD 19:35 → M ED 19:35 → M ED INP 19:36 → M MSPAV 06-13 17:39 → OBSVTOIN 06-14 13:42
PROVIDERS: ADMIT Student in an Organized Health Care Education/Training Program; ATTEND Student in an Organized Health Care Education/Training Program
DX: A41.9 Sepsis, unspecified organism (principal); J18.9 Pneumonia, unspecified organism; J96.11 Chronic respiratory failure with hypoxia; J44.0 Chronic obstructive pulmonary disease with (acute) lower respiratory infection; J44.1 Chronic obstructive pulmonary disease with (acute) exacerbation; N39.0 Urinary tract infection, site not specified; F17.200 Nicotine dependence, unspecified, uncomplicated; Z90.49 Acquired absence of other specified parts of digestive tract; R33.9 Retention of urine, unspecified; K74.60 Unspecified cirrhosis of liver; E78.5 Hyperlipidemia, unspecified; I12.9 Hypertensive chronic kidney disease with stage 1 through stage 4 chronic kidney disease, or unspecified chronic kidney disease; K21.9 Gastro-esophageal reflux disease without esophagitis; I25.10 Atherosclerotic heart disease of native coronary artery without angina pectoris; E11.22 Type 2 diabetes mellitus with diabetic chronic kidney disease; N18.9 Chronic kidney disease, unspecified; M81.0 Age-related osteoporosis without current pathological fracture; M54.9 Dorsalgia, unspecified; G89.29 Other chronic pain; M25.562 Pain in left knee; R91.8 Other nonspecific abnormal finding of lung field; R13.10 Dysphagia, unspecified; G47.00 Insomnia, unspecified; F32.A Depression, unspecified; Z90.13 Acquired absence of bilateral breasts and nipples; Z96.641 Presence of right artificial hip joint; Z98.49 Cataract extraction status, unspecified eye; Z93.3 Colostomy status; Z71.6 Tobacco abuse counseling; Z79.84 Long term (current) use of oral hypoglycemic drugs; Z79.899 Other long term (current) drug therapy; Z88.0 Allergy status to penicillin; Z88.2 Allergy status to sulfonamides; Z88.6 Allergy status to analgesic agent; Z88.8 Allergy status to other drugs, medicaments and biological substances; Z88.5 Allergy status to narcotic agent; Z91.041 Radiographic dye allergy status